=== PATIENT | female | born 1950 | race Caucasian/White ===

== ENCOUNTER 2017-09-02 14:21 | Inpatient (IN) | payer MEDICARE, MEDICAID ==
[~2017-09-02] VITALS: Ht 154.9 cm; Wt 81.3 kg
[~2017-09-02 14:21] MED LIST: ACID REFLUX PO; ANTIVERT GENERI25 MG PO; ASPIRIN 81MG TA81 MG PO; B/P PILL PO; CARAFATE 1GM TAB1 GM PO; CELEXA20 MG PO; CELLCEPT500 MG PO; CHOLESTEROL PO; CITALOPRAM20 MG PO; CLONAZEPAM0.5 M1 PO; CRANBERRY400 MG PO; DIOVAN80 MG PO; DULOXETINE60 MG PO; FIBERCON625 MG OR; FLONASE 50 MCG16 GM; IMODIUM 2MG. CAP2 MG PO; LEVOTHYROXINE0.05 M2 PO; LEVOTHYROXINE0.1 M1 PO; LOSARTAN POTASS50 MG PO; MACROBID 100MG100 M1 PO; PREDNISONE20 MG PO; PROPRANOLOL HCL20 MG PO; PROTONIX 40MG T40 MG PO; REGLAN 5MG TABLE5 MG PO; SINGULAIR 10 MG10 MG PO; SYNTHROID 0.0.075 MG PO; THYROID PILL PO; TYLENOL ES500 M1 PO; ULTRAM50 MG PO; VALSARTAN80 MG PO; VITAMIN B121000 MC2 PO; VITAMIN B12500 MCG PO; VITAMIN D31000 IU PO; VITAMIN D50000 I1 PO; XANAX 1MG TABLET1 MG PO; ZOFRAN ODT4 MG PO; [UNRECOGNIZED DRUG - REMARK] PO
--- OUTSIDE RECORDS SUMMARY | 2017-09-02 14:41 | External Medical Summary Rpt | CCD ---
Author Author , JACQUELYN Organization JACQUELYN Address Unknown Phone [email or web address] Care Team Providers Care Studio Hand Name Role Phone [employer] Unavailable Unavailable INC, [employer] Unavailable Unavailable INC, [employer] ALLRAN JR SAMIRA, ALLRAN Unavailable Unavailable JR SAMIRA ALLRAN JR SAMIRA, ALLRAN Unavailable Unavailable JR SAMIRA JAQUEZ HOL, JAQUEZ Unavailable Unavailable HOL BERNERT EJ, BERNERT Unavailable Unavailable EJ BESSON TIMOTHY, BESSON Unavailable Unavailable TIMOTHY MCKEON, MCKEON Unavailable Unavailable MCKEON ALL, MCKEON ALL Unavailable Unavailable [facility] Unavailable Unavailable [facility], [facility] TAI KRIS, TAI Unavailable Unavailable KRIS MARYStephanie MAJOR IGN, Unavailable Unavailable MARY PEDRITO IGN KYLEE SAMIRA, Unavailable Unavailable KYLEE RIOS MARGARITA, Unavailable Unavailable RIOS MARGARITA CELSO MCELROY, [place] Unavailable Unavailable LILIBETH [facility], Unavailable Unavailable [facility] Unavailable Unavailable LA, [facility] Unavailable [facility]available LA, [facility] CORNEJO CRISTIAN, CORNEJO CRISTIAN Unavailable Unavailable [facility] Unavailable Unavailable THE [facility], [facility] ARIANE JR, ARIANE Unavailable Unavailable JR COOK LILIBETH, COOK LILIBETH Unavailable Unavailable KENNY ANTWAN, Unavailable Unavailable KENNY ANTWAN [facility] Unavailable [facility], [facility] Unavailable [facility], [facility] ZIMMER FRDEY, ZIMMER FREDY Unavailable Unavailable ENDEAN XOCHITL, ENDEAN Unavailable Unavailable XOCHITL EYE MAX, EYE MAX Unavailable Unavailable FALLIS YONY, FALLIS Unavailable Unavailable YONY [facility] Unavailable Unavailable SERVBLUEGRAS, FEDERATED TRANS SERVBLUEGRAS [facility] Unavailable Unavailable TRANSPORTATION SER, [facility] FEEBACK REE, FEEBACK Unavailable Unavailable REE SEGAL ESTEFANIA, Unavailable Unavailable SEGAL ESTEFANIA YOVANY NICOLA, Unavailable Unavailable YOVANY NICOLA OLIVEIRA NAN, OLIVEIRA Unavailable Unavailable NAN TANESHA RHO, TANESHA Unavailable Unavailable RHO JUDAH SANTA, JUDAH SANTA Unavailable Unavailable SONY PRICE, Unavailable Unavailable SONY PRICE [facility] Unavailable Unavailable CARE, [facility] Unavailable Unavailable CARE, [facility]ARE [facility] Unavailable Unavailable INC, [facility] Unavailable [facility]available HOSPITAL P, [facility] HOSPITAL P WALKER RADHA, WALKER RADHA Unavailable Unavailable [facility], Unavailable Unavailable [facility] DAVEY GWE, DAVEY Unavailable Unavailable GWE HOUSMAN KAMILA, HOUSMAN Unavailable Unavailable KAMILA [facility] Unavailable Unavailable CORPORATION, [facility] Unavailable Unavailable CORPORATION, [facility] Unavailable Unavailable CORPORATION, [facility] Unavailable GROUP PS, [facility] Unavailable Unavailable [facility], [facility] KERN CAR, KERN CAR Unavailable Unavailable DELICIA PEDRO, DELICIA PEDRO Unavailable Unavailable DELICIA SANTA, DELICIA SANTA Unavailable Unavailable [facility] N[facility] Unavailable Unavailable PRACTITIONER GR, [facility] NURSE PRACTITIONER GR [facility] Un[facility] Unavailable Unavailable [facility], [facility] FED, [facility] FED Unavailable Unavailable [facility], [facility] Unavailable Unavailable ALEK JR DWI, ALEK Unavailable Unavailable JR DWI [facility] Unavailable [facility] Unavailable Un[facility] HERBERT, HERBERT Unavailable Unavailable HERBERT KRI, HERBERT KRI Unavailable Unavailable JAVIER PEDRO, JAVIER Unavailable Unavailable PEDRO JAVIER PEDRO, JAVIER Unavailable Unavailable PEDRO MAJORS G, MAJORS G Unavailable Unavailable [facility] Unavailable Unavailable SERVICES, [facility] Unavailable Unavailable ASSOCIAT, [facility] MCKEMIE KAMILA, Unavailable Unavailable MCKEMIE JR KAMILA BRILLIANT CAROL, Unavailable Unavailable [facility]LLI[facility], [facility] AVILES KAMILA, AVILES KAMILA Unavailable Unavailable RONY CAM, RONY Unavailable Unavailable [facility], Unavailable Unavailable [facility] Unavailable Unavailable AMBULANCE SE, [facility] Unavailable Unavailable AMBULANCE SE, [facility] CRISTIAN CORNEJO MD Unavailable Unavailable CONSULTING SERV, CRISTIAN CORNEJO MD CONSULTING SERV CRISTIAN CORNEJO MD Unavailable Unavailable CONSULTING SRV, CRISTIAN CORNEJO MD CONSULTING SRV [facility], Unavailable Unavailable PLLC, [facility] HODGE MAD, HODGE MAD Unavailable Unavailable SOPHIE TOD, SOPHIE TOD Unavailable Unavailable SCALF IRIS, SCALF IRIS Unavailable Unavailable RIVERO BRANT, RIVERO BRANT Unavailable Unavailable SOKAN BAB, SOKAN BAB Unavailable Unavailable [facility], Unavailable Unavailable [facility] Unavailable Unavailable EQUIPME, [facility] Unavailable Unavailable EQU[facility]ME, [facility] SOTINGEANU CAROL, Unavailable Unavailable SOTINGEANU CAROL [facility] Unavailable Unavailable EMERGENCY PHYS, [facility], Unavailable Unavailable [facility] Unavailable Unavailable CLINIC, [facility] CL[facility] Unavailable Unavailable HOSPITALS, [facility] Unavailable Unavailable SUPPLY, [facility] Unavailable Unavailable SUPPLY, [facility] SUPPL[facility] Unavailable Unavailable MEDICINE , [facility] MEDIC[facility], Unavailable Unavailable [facility] # Unavailable Unavailable [id number], [facility] # [id number] GUILLEN, GUILLEN Unavailable Unavailable GUILLEN PERRY, GUILLEN PERRY Unavailable Unavailable [facility] Unavailable Unavailable 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 WEBMASTER, [facility] DEPT CORPORATE WEBMASTER [facility] Unavailable Unavailable AGENCY, [facility] MARIO SANTA, MARIO Unavailable Unavailable SANTA Purpose Continuity of Care Document - 08-29-2010 through 2016 Problems Code Diagnosis DOS Provider Status N189 CHRONIC 08-25-2017 [facility] UNSPECIFIED K580 IRRITABLE 07-25-2017 [facility] BOWEL HEALTH SYNDROME AGENCY WITH DIARRHEA M1990 UNSPECIFIED 07-25-2017 [facility] HEALTH OSTEOARTHRI AGENCY TIS UNSPECIFIED SITE N8110 CYSTOCELE 07-25-2017 [facility] UNSPECIFIED HEALTH AGENCY R159 FULL 07-25-2017 [facility] INCONTINENC HEALTH E OF FECES AGENCY R3981 FUNCTIONAL 07-25-2017 [facility] URINARY HEALTH INCONTINENC AGENCY E I129 HYPERTENSIV 07-16-2017 [facility] CKD SERV W/STAGE 1-4 FOUNDATION CKD OR UNS CKD M329 SYSTEMIC 07-16-2017 [facility] LUPUS SERV ERYTHEMATOS FOUNDATION US UNSPECIFIED M810 AGE-RELATED 07-16-2017 [facility] OSTEOPOROSI [facility]OUNDATION S W/O CURRNT PATH FX N039 CHRONIC 07-16-2017 [facility] NEPHRITIC SERV SYND W/UNS FOUNDATION MORPHOLOGIC CHANGES N183 CHRONIC 07-16-2017 [facility] KIDNEY SERV DISEASE FOUNDATION STAGE 3 MODERATE N250 RENAL 07-16-2017 [facility] OSTEODYSTRO SERV PHY [facility]ATION R809 PROTEINURIA 07-16-2017 [facility] UNSPECIFIED FOUNDATION R8290 UNSPECIFIED 07-16-2017 [facility] ABNORMAL [facility] FINDINGS IN INC URINE M069 RHEUMATOID 06-02-2017 [facility] ARTHRITIS [place] UNSPECIFIED M3210 SYSTEMIC 06-02-2017 [facility] LUPUS CORPORATION ERYTHEMATOS US ORGAN/SYS INVLV UNS M4000 POSTURAL 06-02-2017 [facility] KY[facility] CORPORATION SITE UNSPECIFIED M549 DORSALGIA 05-29-2017 [facility] R079 CHEST PAIN 05-29-2017 [facility] IMAGING ASS R091 PLEURISY 05-29-2017 [facility] INC R69 ILLNESS 05-15-2017 [facility] UNSPECIFIED TRANSPORTAT ION SER [id number] UNSPECIFIED 04-30-2017 [facility] ASTIGMATISM FOUNDATION BILATERAL H524 PRESBYOPIA 04-30-2017 [facility] SERV FOUNDATION Q76439 OTHER LONG 04-30-2017 [facility] TERM SERV CURRENT FOUNDATION DRUG THERAPY Z961 PRESENCE OF 04-30-2017 [facility] SERV INTRAOCULAR FOUNDATION LENS G8929 OTHER 04-29-2017 [facility] CHRONIC SERV PAIN FOUNDATION L853 XEROSIS 04-29-2017 [facility] CUTIS SERV [facility] M545 LOW BACK 04-29-2017 [facility] PA[facility] R52 PAIN 04-29-2017 [facility] UNSPECIFIED SERV FOUNDATION R531 WEAKNESS 04-29-2017 [facility] E039 HYPOTHYROID 02-19-2017 [facility] UNSPECIFIED LA M129 ARTHROPATHY 02-19-2017 [facility] UNSPECIFIED LA M3214 GLOMERULAR 02-19-2017 [facility] DISEASE IN PHYSICIANS SYS LUPUS LA ERYTHEMATOS US N390 URINARY 10-28-2016 [facility] TRACT SERV INFECTION FOUNDATION SITE NOT SPECIFIED [id number] NONDSPL FX 10-16-2016 [facility] METATARSAL IMAGING ASS RT FT SUBSQT FX RTN [id number] UNS 10-16-2016 [facility] FRACTURE RT PHYSICIANS FOOT GROUP SUBSQT ENC FX ROUTINE HEAL [id number] DISPLACED 09-24-2016 [facility] FX 3RD TECHNOLOGIE METATARSAL S INC RT FT INIT CLOS FX [id number] NONDSPL FX 09-24-2016 [facility] 3RD [facility] METATARSAL INC RT FT INIT ENC CLOS FX [id number] DISPLACED 09-24-2016 [facility] FX 4TH TECHNOLOGIE METATARSAL S INC RT FT INIT CLOS FX [id number] NONDSPL FX 09-24-2016 [facility] 4TH [facility] METATARSAL INC RT FT INIT ENC CLOS FX [id number] NONDSPL FX 09-04-2016 [facility] METATARSAL IMAGING ASS RT FT SUBSQT FX RTN R83750 PAIN IN 08-26-2016 [place] RIGHT FOOT MEDICAL IMAGING ASS Z1231 ENCOUNTER 08-20-2016 [place] SCREENING MEDICAL MAMMO MALIG IMAGING ASS NEOPLASM BREAST K449 DIAPHRAGMAT 07-17-2016 [facility] HERNIA RADIOLOGY W/O OBSTRUCTION OR GANGRENE R197 DIARRHEA 07-17-2016 [facility] UNSPECIFIED N EMERGENCY PHYS M359 SYSTEMIC 04-30-2016 [facility] INVOLVEMENT SERV CONNECTIVE FOUNDATION TISSUE UNS Z5181 ENCOUNTER 04-30-2016 [facility] FOR SERV THERAPEUTIC FOUNDATION DRUG LEVEL MONITORING B351 TINEA 04-16-2016 [facility] YONY UNGUIUM F56502 PAIN IN 04-16-2016 [facility] YONY LEFT FOOT H109 UNSPECIFIED 04-03-2016 [facility] [place] CONJUNCTIVI INTERNAL TIS MEDI L930 DISCOID 02-21-2016 [facility] LUPUS PHYSICIANS ERYTHEMATOS LA US J069 ACUTE UPPER 01-24-2016 [facility] RESPIRATORY INTERNAL INFECTION MEDI UNSPECIFIED A499 BACTERIAL 01-18-2016 [facility] INFECTION SERV UNSPECIFIED FOUNDATION K219 GASTRO-ESOP 12-20-2015 [facility] H REFLUX ANESTH OF DISEASE THE BLUE WITHOUT ESOPHAGITIS M2570 OSTEOPHYTE 12-07-2015 [facility] YONY UNSPECIFIED JOINT R799 ABNORMAL 11-27-2015 [facility] FINDING OF [facility] HOS[facility] BLOOD INC CHEMISTRY UNSPECIFIED R0609 OTHER FORMS 11-21-2015 [facility] OF DYSPNEA [place]OM[place] INTERNAL MED K210 GASTRO-ESOP 10-31-2015 [facility] HAGEAL SERV REFLUX FOUNDATION DISEASE W/ ESOPHAGITIS R1310 DYSPHAGIA 10-11-2015 COMM[facility] UNSPECIFIED ANESTH OF THE BLUE E860 DEHYDRATION 10-02-2015 [facility] R112 NAUSEA WITH 10-02-2015 [facility] VOMITING PHYSICIANS, UNSPECIFIED PLLC K589 IRRITABLE 09-18-2015 [facility] BOWEL PHYSICIANS SYNDROME GROUP WITHOUT DIARRHEA M8580 OT SPEC 08-30-2015 [facility] D/O BONE PHYSICIANS DENSITY LA STRUCTURE UNS SITE Z23 ENCOUNTER 08-29-2015 [facility] [place] IMMUNIZATIO INTERNAL N MED R109 UNSPECIFIED 08-24-2015 [place] ABDOMINAL MEDICAL PAIN IMAGING ASS R9431 ABNORMAL 08-16-2015 [facility] P N959 UNSPECIFIED 08-15-2015 [facility] INC PERIMENOPAU SYDNI DISORDER S25762 ENCOUNTER 08-15-2015 [place] FOR MEDICAL SCREENING IMAGING ASS FOR OSTEOPOROSI S Z780 ASYMPTOMATI 08-15-2015 [place] C MEDICAL MENOPAUSAL IMAGING ASS STATE Z803 FAMILY 08-15-2015 [place] HISTORY OF MEDICAL MALIGNANT IMAGING ASS NEOPLASM OF BREAST 3829 UNSPECIFIED 08-07-2015 [facility] OTITIS VAL[facility] MEDIA INTERNAL MEDI 13380 ESOPHAGEAL 08-07-2015 [facility] REFLUX VALLEY INTERNAL MEDI 5853 CHRONIC 07-28-2015 [facility] KIDNEY [facility] DISEASE INC STAGE III (MODERATE) 5990 URINARY 07-28-2015 [facility] INFECTION INC SITE NOT SPECIFIED 36574 07-28-2015 [facility] TRANSPORTAT ION SER 5641 IRRITABLE 07-25-2015 [facility] SYNDROME AGENCY 71673 UNS PROLAPS 07-25-2015 [facility]AG [facility] W/O MENTION AGENCY UTERN PROLAPS 96410 UNSPECIFIED 07-25-2015 [facility] HEALTH ARTHROPATHY AGENCY SITE UNSPECIFIED 7242 LUMBAGO 07-25-2015 [facility] INTERNAL MEDI 57967 FULL 07-25-2015 [facility] INCONTINENC HEALTH E OF FECES AGENCY 80771 UNSPECIFIED 07-25-2015 [facility] URINARY HEALTH INCONTINENC AGENCY E V7610 UNSPECIFIED 07-25-2015 [facility] [place] SCREENING INTERNAL MEDI V8281 SPECIAL 07-25-2015 [facility] SCREENING VALLEY FOR INTERNAL OSTEOPOROSI MEDI S 7100 SYSTEMIC 07-11-2015 [facility] LUPUS HEALTH [place] [address] OSTEOARTHRO 07-11-2015 [facility] S UNSPEC HEALTH DEPT WHETHER CORPORATE WEBMASTER GEN/LOC UNSPEC SITE 2449 UNSPECIFIED 05-31-2015 [facility] [place] 48336 OTHER 04-25-2015 [facility] CHRONIC SERV PAIN FOUNDATION 04691 UNSPECIFIED 04-19-2015 [facility] P IS 7802 SYNCOPE AND 04-19-2015 [place] [address] NAUSEA 04-19-2015 [facility] [place] [address] DIAB W/O 03-30-2015 [facility] TYPE STATES II/UNS NOT MEDICAL STATED SUPPLY UNCNTRL 7140 RHEUMATOID 03-01-2015 [place] [address] UNSPECIFIED 02-22-2015 [facility] ARTHROPATHY INTERNAL MULTIPLE MED SITES 16332 KYPHOSIS 02-06-2015 [facility] POSTURAL 84559 HTN CKD UNS 01-09-2015 [facility] W/CKD SERV STAGE I FOUNDATION THRU STAGE IV/UNS 5829 CHRONIC GLN 01-09-2015 [facility] W/UNSPEC SERV PATHOLOGICA FOUNDATION L LESION KIDNEY 4659 ACUTE URIS 11-29-2014 [facility] OF SERV UNSPECIFIED FOUNDATION SITE 1101 DERMATOPHYT 10-12-2014 [facility] OSIS OF NAIL 7038 OTHER 10-12-2014 [facility] SPECIFIED DISEASE OF NAIL 7295 PAIN IN 10-12-2014 [facility] SOFT TISSUES OF LIMB 79332 OBSTRUCTIVE 09-16-2014 [facility] APNEA MEDICAL EQUIPME 10272 OTHER 09-16-2014 [facility] DYSPNEA AND HOME MEDICAL RESPIRATORY EQUIPME ABNORMALITI ES 4011 ESSENTIAL 08-15-2014 [facility] HYPERTENSIO SERV N, BENIGN FOUNDATION 7910 PROTEINURIA 08-15-2014 [facility] 7919 OTHER 08-15-2014 [facility] NONSPECIFIC [facility] FINDING INC EXAMINATION OF URINE 81610 DYSPHAGIA 08-11-2014 [facility] UNSPECIFIED [facility] HOSP INC 85185 AFTER-CATAR 07-28-2014 [facility] VISION 57495 NEPHRITIS&N 05-31-2014 [facility] EPHROPATHY- SERV OTH SPEC FOUNDATIO PATH LES DZ CE 7813 LACK OF 03-25-2014 [facility] COORDINATIO HOME N MEDICAL EQUIPME 40877 ANEMIA OF 01-20-2014 [facility] OTHER SERV CHRONIC FOUNDATIO DISEASE 2724 OTHER AND 12-07-2013 [facility] UNSPECIFIED VALLEY INTERNAL HYPERLIPIDE MED BRIDGETTE 3814 NONSUPPRATV 12-07-2013 [facility] OTITIS [place] MEDIA NOT INTERNAL SPEC MED ACUT/CHRON 4019 UNSPECIFIED 12-07-2013 [facility] ESSENTIAL [facility] HYPERTENSIO INTERNAL N MED 4720 CHRONIC 12-07-2013 [facility] RHINITIS VALLEY INTERNAL MED 7851 PALPITATION 10-20-2013 [facility], [place] [address] HYPERPARATH 10-13-2013 [facility], YROIDISM POCKET CLOSER UNSPECIFIED [facility] [facility] 2689 UNSPECIFIED 10-13-2013 [facility], VITAMIN D [place]OCKET [place] [address] ANEMIA IN 10-13-2013 [facility], CHRONIC POCKET CLOSER KIDNEY [facility] CO DISEASE HOS 3384 CHRONIC 09-27-2013 [facility] PAIN SERV SYNDROME FOUNDATIO 7226 DEGENERATIO 09-27-2013 [place] [facility] N SERV INTERVERTEB FOUNDATIO RAL DISC SITE UNSPEC 14813 OTHER 06-30-2013 [facility], ABNORMAL POCKET CLOSER FINDING [facility]OS L EXAM BREAST 24781 LUMP OR 06-25-2013 [place] IN RADIOLOGY BREAST ASSOCIAT 1103 DERMATOPHYT 06-07-2013 [facility] OSIS OF SOMERSET GROIN AND INTERNAL PERIANAL MED AREA 4555 EXTERNAL 05-05-2013 [facility] JR HEMORRHOIDS SAMIRA WITH OTHER COMPLICATIO N 2722 MIXED 05-04-2013 CRISTIAN CORNEJO HYPERLIPIDE BRIDGETTE CONSULTING SERV 71085 CORONARY 05-04-2013 CRISTIAN HAYNES MD OSIS [place] TRIBES CONSULTING CORONARY SERV ARTERY V7281 PRE-OPERATI 05-04-2013 CRISTIAN BARAJAS MD CARDIOVASCU CONSULTING LAR SERV EXAMINATION 81309 DYSFNCT 04-23-2013 [facility] W/SLEEP HOSPITAL STGES/AROUS AL FRM SLEEP 28567 HYPOXEMIA 04-23-2013 [facility] V8533 BODY MASS 04-23-2013 [facility] [id number] HOSPITAL ADULT 5859 CHRONIC 04-19-2013 [facility] INC, KIDNEY POCKET CLOSER DISEASE [facility] UNSPECIFIED HOS 13789 UNSPECIFIED 04-16-2013 [facility] OSTEOPOROSI S 48594 CHEST PAIN 04-16-2013 [facility] UNSPECIFIED CARDIOLOGY CLINIC 4160 PRIMARY 04-14-2013 [place] PULMONARY [facility] HYPERTENSIO [facility] N 20908 PRECORDIAL 04-14-2013 [facility] 51622 OTHER 04-14-2013 [facility] [place] NONSPECIFIC RADIOLOGY ABNORMAL FINDING OF LUNG FIELD 27498 SHORTNESS 03-24-2013 [facility] 7823 EDEMA 03-09-2013 CRISTIAN CORNEJO [place] 05956 OTHER CHEST 03-01-2013 [facility] PAIN [place]OMERSET INTERNAL MED 79202 OBESITY, 02-27-2013 [facility] UNSPECIFIED [facility]ERGENCY SERVICES 08315 [facility]N [facility] 02-26-2013 [facility] KID DZ STAGE I-IV/UNS 4556 UNSPEC 02-26-2013 [place] [facility] ANESTHESIA WITHOUT GROUP PS MENTION COMPLICATIO N 4558 UNSPECIFIED 02-26-2013 [facility]OSPITAL WITH OTHER COMPLICATIO N V641 SURG/OTH 02-26-2013 [facility] BECAUSE CONTRAINDIC ATION 4550 INTERNAL 02-10-2013 [facility] JR HEMORRHOIDS SAMIRA WITHOUT MENTION COMP 485 BRONCHOPNEU 01-19-2013 [facility] [place] ORGANISM INTERNAL UNSPECIFIED MED 27795 OTHER 01-19-2013 [facility] [place] FATIGUE INTERNAL MED 4293 CARDIOMEGAL [facility] 03244 OTHER 01-18-2013 [facility] TERRACE DISEASES OF RADIOLOGY LUNG NOT ASSOCIAT ELSEWHERE CLASSIFIED 6100 SOLITARY 01-13-2013 [facility], CYST OF [place] [address] UNSPECIFIED 01-06-2013 [facility], ABNORMAL [place]OCKET [place] 46782 DYSPHAGIA 12-09-2012 [facility], DUE TO POCKET CLOSER CEREBROVASC [facility] CO ULAR HOS DISEASE 5533 DIAPHRAGMAT 12-09-2012 [facility], EDUARD W/O POCKET CLOSER MENTION [place] OBSTRUCTION HOS /GANGREN 23043 OTHER 12-08-2012 [facility] TERRACE SPECIFIED RADIOLOGY DISORDERS ASSOCIAT OF BREAST V1589 OTH SPEC 12-08-2012 [facility], PERS HX POCKET CLOSER PRESENTING [facility] CO HAZARDS HOS HEALTH OTH V163 FAMILY 12-08-2012 [facility], HISTORY OF POCKET CLOSER MALIGNANT [place] CO NEOPLASM OF HOS BREAST V7611 SCREENING 12-08-2012 [facility], MAMMOGRAM POCKET CLOSER FOR [place] CO HIGH-RISK HOS PATIENT V7612 OTHER 12-08-2012 [facility] T[facility]ACE SCREENING RADIOLOGY MAMMOGRAM ASSOCIAT 7213 LUMBOSACRAL 12-01-2012 [facility] SPONDYLOSIS WITHOUT MYELOPATHY 68386 DISPLCMT 12-01-2012 [facility] LUMBAR SERV INTERVERT FOUNDATIO DISC W/O MYELOPATHY 34143 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 [place] LUMBAR/LUMB [facility] OSACRAL INTERVERTEB RAL DISC 27166 OTHER&UNSPE 12-01-2012 [facility] DISORDER OF LUMBAR REGION 92024 DIVERTICULO 11-17-2012 [facility] SIS OF MEM HOS[facility] COLON INC 60547 OTHER 11-17-2012 [facility] SYMPTOMS ANESTH OF INVOLVING THE BLUE DIGESTIVE SYSTEM OTHER V160 FM HX 11-17-2012 [facility] MALIGNANT [facility] NEOPLASM INC GASTROINTES TINAL TRACT V7651 SPECIAL 11-17-2012 [facility] SCREENING MEM HOS[facility] FOR INC MALIGNANT NEOPLASMS COLON 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 [facility] THESIS 82260 NEPHROTIC 11-05-2012 [place] [facility] SYND W/OTH SERV PATHAL LES FOUNDATIO DZ CLASS ELSW 61086 MUSCLE 11-05-2012 [place] [facility] WEAKNESS SERV (GENERALIZE FOUNDATIO D) 4553 EXTERNAL 10-19-2012 [facility] HEMORRHOIDS SAMIRA WITHOUT MENTION COMP 7856 ENLARGEMENT 10-05-2012[place] [facility] RADIOLOGY NODES ASSOCIAT 7866 SWELLING, 10-05-2012 [facility], MASS, OR POCKET CLOSER LUMP IN [place] CHEST HOS V4576 ACQUIRED 10-05-2012 [facility], ABSENCE OF POCKET CLOSER ORGAN, LUNG [facility] HOS V4589 OTHER 09-25-2012 [facility], POSTSURGICA POCKET CLOSER L STATUS [facility] OTHER HOS V571 OTHER 09-24-2012 [facility], PHYSICAL POCKET CLOSER THERAPY [facility] HOS 4421 ANEURYSM OF 09-21-2012 [facility] ARTERY 59406 OSTEOARTHRO 09-03-2012 [facility] S UNSPEC SERV WHETHER FOUNDATIO GEN/LOC SHLDR REGION 20295 OSTEOARTHRO 09-03-2012 [facility] SIS UNSPEC SERV WHETHER FOUNDATIO GEN/LOC LOWER LEG 63589 EFFUSION OF 09-03-2012 [facility] LOWER LEG SERV JOINT FOUNDATIO 64586 PAIN IN 09-03-2012 [place] [facility] JO[facility], SERV SHOULDER FOUNDATIO REGION 22773 PAIN IN 09-03-2012 [facility] SERV LOWER LEG FOUNDATIO 7249 OTHER 09-03-2012 [facility] U[facility]IED SERV BACK [facility] DISORDER 15475 EXOSTOSIS 09-03-2012 [facility] UNSPECIFIED F[facility]ATIO SITE 7384 ACQUIRED 09-03-2012 [facility] SPONDYLOLIS SERV THESIS [facility]OUNDATIO 51742 DEHYDRATION 08-04-2012 [facility] P[facility]ET [facility] 5589 OTH&UNSPEC 08-04-2012 [facility] NONINFECTIO POCKET CLOSER US [facility] ITIS&COLITI S 97610 VOMITING 08-04-2012 [facility] ALONE [facility] 4580 ORTHOSTATIC 06-19-2012 [facility] HYPOTENSION 5849 ACUTE 06-19-2012 [facility] FAILURE UNSPECIFIED 2720 PURE 06-05-2012 [facility], HYPERCHOLES POCKET CLOSER TEROLEMIA [facility] 586 UNSPECIFIED 04-14-2012 CRISTIAN CORNEJO RENAL [place] 64882 OTH & UNS E 04-08-2012 [facility], COLI POCKET CLOSER INFECTION [facility] CLASS ELSW HOS UNS SITE 2762 ACIDOSIS 04-08-2012 [facility], POCKET CLOSER [facility] HOS 2767 HYPERPOTASS 04-08-2012 [facility], EMIA POCKET CLOSER [facility] HOS 4589 UNSPECIFIED 04-07-2012 [facility] HYPOTENSION 7862 COUGH 04-07-2012 [facility] 30554 ANEURYSM OF 03-23-2012 [facility] OTHER SERV VISCERAL FOUND[facility] ARTERY 73838 UNSPECIFIED 02-13-2012 [facility] MEDICINE P 6256 FEMALE 02-12-2012 [place] [address] URGE 02-12-2012 [facility] [place] [address] URINARY 02-12-2012 [place] [address] URGENCY OF 02-12-2012 [facility] N[facility]SE URINATION PRACTITIONE R GR 7336 TIETZES 07-10-2011 [facility], DISEASE POCKET CLOSER [facility] HOS 94581 UNSPECIFIED 01-03-2011 [facility] PYELONEPHRI TIS 6826 CELLULITIS 01-03-2011 [facility] [facility] P EXCEPT FOOT 6954 LUPUS 01-03-2011 [facility] US FOUNDATIO 27944 SWELLING OF 01-03-2011 [facility] 7931 NONSPEC 01-03-2011 [facility] OTH EXAM FOUNDATIO BODY STRUCT LUNG FIELD 19559 CRAMP OF 11-06-2010 [facility] 58435 DIARRHEA 11-06-2010 [facility] HOSPITAL V5865 LONG-TERM 11-06-2010 [facility] USE OF HOSPITAL STEROIDS V5869 LONG-TERM 11-06-2010 [facility] (CURRENT) HOSPITAL USE OF OTHER MEDICATIONS V5883 ENCOUNTER 11-06-2010 [facility] FOR HOSPITAL THERAPEUTIC DRUG MONITORING 68962 NAUSEA WITH 10-02-2010 [facility] V7260 LABORATORY 10-02-2010 [facility] UNSPECIFIED 4619 ACUTE 09-27-2010 [facility] SINUSITIS, FAMILY UNSPECIFIED MEDICINE P 55191 NUCLEAR 09-05-2010 [facility] 3669 UNSPECIFIED 09-04-2010 [facility] 7850 UNSPECIFIED 08-29-2010 [facility] TACHYCARDIA Medications Na ND Rx Da Fi Fi Am Da Di Ph RX Ph St me C No te ll ll ou ys ag ar # ys at rm s nt no ma ic us Or Da si cy ia de te s n re d BE 67 01 01 0 30 10 SO 49 FL Ac NZ 87 -0 -0 0. PE 28 OR ti ON 70 5- 5- 00 RS 24 EN ve AT 10 20 20 0 CE AT 60 15 15 FA E 1 IL SA 20 LY RA [address] L UG CA PS UL E LE 00 07 08 6 30 30 WA 71 ME Ac VO 37 -1 -2 0. L- 34 LV ti TH 81 1- 0- 00 MA 13 IL ve YR 80 20 20 0 RT 6 LE OX 00 12 12 IN 1 PH DA E AR NI 25 MA EL CY MC # G TA 10 BL 04 ET 93 LE 00 07 07 6 30 30 WA 71 ME Ac VO 37 -1 -1 0. L- 34 LV ti TH 81 1- 1- 00 MA 13 IL ve YR 80 20 20 0 RT 6 LE OX 00 12 12 IN 1 PH DA E AR NI 25 MA EL CY MC # G TA 10 BL 04 ET 93 ON 68 06 06 0 12 4 WA 71 SI Ac DA 46 -0 -0 0. L- 29 ZE ti NS 20 7- 7- 00 MA 83 MO ve ET 10 20 20 0 RT 4 RE RO 53 12 12 N 0 PH ED HC AR WA L MA RD 4 CY A MG # TA 10 BL 04 ET 93 LE 00 02 06 3 30 30 WA 71 ME Ac VO 37 -1 -0 0. L- 15 LV ti TH 81 6- 4- 00 MA 04 IL ve YR 80 20 20 0 RT 4 LE OX 00 12 12 IN 1 PH DA E AR NI 25 MA EL CY # G TA 10 BL 04 ET 93 Results Labs Lab Lab Date Result Refere Interp Status Commen Order Detail nces retati t Range on Protein [Presence] in Urine (07-16-2017 14:15) Protein 381.2 0.0mg High complet 017 /dL - ed [Presen 14:15 11.9m ce] in g/dL Urine Urinalysis dipstick W Reflex Microscopic panel in Urine (07-16-2017 14:15) Bacteri 4+ O complet a 017 ed [Presen 14:15 ce] in Urine sedimen t by Light microsc opy Erythro OCC 0 complet cytes 017 ed [Presen 14:15 ce] in Urine sedimen t by Light microsc opy Epithel 5-10 NONE complet ial 017 ed cells.r 14:15 enal [Presen ce] in Urine sedimen t by Light microsc opy Epithel TNTC 0#/hp complet ial 017 f - ed cells.s 14:15 5#/hp quamous f [Presen ce] in Urine sedimen t by Microsc opy high power field Leukocy 50-100 O complet michael 017 wbc/hpf ed [#/volu 14:15 me] in Urine Urinalysis dipstick W Reflex Microscopic panel in Urine (07-16-2017 14:15) Appeara SL CLEAR complet nce of 017 CLOUDY ed Urine 14:15 Bilirub NEGATIV NEG complet in 017 E ed [Presen 14:15 ce] in Urine by Test strip Erythro 1+ NEG Abnorma complet cytes 017 l ed [Presen 14:15 ce] in Urine Color YELLOW YELLOW complet of 017 ed Urine 14:15 Ketones NEGATIV NEG complet 017 E ed [Presen 14:15 ce] in Urine by Automat ed test strip Mucus 1+ NEG Abnorma complet [Presen 017 l ed ce] in 14:15 Urine sedimen t by Light microsc opy Nitrite POSITIV NEG Abnorma complet 017 E l ed [Presen 14:15 ce] in Urine by Test strip Urobili 0.2 NEG complet nogen 017 ed [Presen 14:15 ce] in Urine by Test strip C3c SerPl-mCnc (01-28-2017 14:00) C3c 165 84-166 complet SerPl-m 017 mg/dL ed Cnc 14:00 C4 SerPl-mCnc (01-28-2017 14:00) C4 25 13-36 complet SerPl-m 017 mg/dL ed Cnc 14:00 Creat Ur-mCnc (01-28-2017 14:00) Creat 176 complet Ur-mCnc 017 mg/dL ed 14:00 CRP SerPl-mCnc (01-28-2017 14:00) CRP 01-28-2 0.7 0-0.9 complet SerPl-m 017 mg/dL ed Cnc 14:00 ESR Bld Qn (01-28-2017 14:00) ESR Bld 48 0-20 complet Qn 017 mm/hr ed 14:00 Procedures Procedure DOS Code Location Performer Comment DISPBL T4535 [facility] HOME HOME ELD/GUARD HEALTH HEALTH /PAD/UNDG AGENCY AGENCY RMNT INCONT EA CREATININ 46105 [facility] INC RENAL 67159 [facility] FUNCTION 7 [facility] PANEL INC INC URNLS DIP 78473 [facility] REY 7 [facility] STICK/TAB INC INC LET REAGENT AUTO MICROSCOP Y PROTEIN 55786 [facility] RE[facility] XCPT 7 [facility] REFRACTOM INC INC ETRY SERUM PLASMA/WH L BLD BLOOD 27989 [facility] RE[facility] COUNT 7 [facility] COMPLETE INC INC AUTO&AUTO DIFRNTL WBC CULTURE 91421 [facility] RE[facility] BACTERIAL 7 [facility] INC INC QUANTTATI VE COLONY COUNT URINE COLLECTIO 41989 KR[facility]SY REY N VENOUS 7 [facility] BLOOD INC INC VENIPUNCT URE PWR E2381 HOVER[facility] HOVEROUND PNEUMATIC 7 DRIVE CORPORATI CORPORATI WHEEL ON ON TIRE REPL ONLY EACH PWR E2382 HOVEROUND HOVEROUND TUBE 7 PNEUMATIC CORPORATI CORPORATI DRIVE ON ON WHEEL TIRE REPL EACH RADIOLOGI 91794 [place] MCKEON C EXAM 7 MEDICAL CHEST 2 IMAGING VIEWS ASS FRONTAL&L ATERAL NONEMERGE A0130 FEDERATED FEDERATED NCY 7 TRANS TRANSPORT TRANSPORT SERVBLUEG ATION: ATION SER NATA AKBAR DISPBL T4535 [facility] 7 HOME HOME ELD/GUARD HEALTH HEALTH /PAD/UNDG AGENCY AGENCY RMNT INCONT EA NONEMERGE A0130 FEDERATED FEDERATED NCY 7 TRANS TRANSPORT TRANSPORT SERVBLUEG ATION: ATION SER NATA Carrasquillo VAN NONEMERGE A0130 FEDERATED FEDERATED NCY 7 TRANS TRANSPORT TRANSPORT SERVBLUEG ATION: ATION SER NATA Carrasquillo VAN VISUAL 49031 MINH THAKKAR FIELD XM 7 MEDICAL JR UNI/BI SERV W/INTERP FOUNDATIO EXTENDED N EXAM COMPUTERI 41353 [place] ARIANE ZED 7 MEDICAL JR OPHTHALMI SERV C IMAGING FOUNDATIO RETINA N NONEMERGE A0130 FEDERATED FEDERATED NCY 7 TRANS TRANSPORT TRANSPORT SERVBLUEG ATION: ATION SER NATA Carrasquillo VAN DISPBL T4535 [facility] 7 HOME HOME ELD/GUARD HEALTH HEALTH /PAD/UNDG [place] [address] COMBINED COMBINED THYROID 7 PHYSICIAN PHYSICIAN STIMULATI [place] [address] COMBINED COMBINED FREE 7 PHYSICIAN [place] [address] COMBINED COMBINED TRIIODOTH 7 PHYSICIAN PHYSICIAN YRONINE S LA S LA T3 TOTAL TT3 BLOOD 24292 COMBINED COMBINED COUNT 7 PHYSICIAN PHYSICIAN COMPLETE S LA S LA AUTO&AUTO DIFRNTL WBC LIPID 70977 COMBINED COMBINED PANEL 7 PHYSICIAN PHYSICIAN S LA S LA COMPREHEN 19967 COMBINED COMBINED SIVE 7 PHYSICIAN PHYSICIAN METABOLIC S LA S LA PANEL PWR WC E2366 HOVEROUND HOVEROUND ACSS 7 BATTRY CORPORATI CORPORATI CHRGR 1 ON ON MODE W/ONLY 1 B[facility]Y PROTEIN 83851 [facility] TOTAL 7 HEALTHCAR HEALTHCAR XCPT E E REFRACTOM [facility] ETRY URINE NONEMERGE A0130 FEDERATED FEDERATED NCY 7 TRANS TRANSPORT TRANSPORT SERVBLUEG ATION: ATION SER NATA Carrasquillo VAN COLLECTIO 91052 [facility] N VENOUS 7 HEALTHCAR HEALTHCAR BLOOD E E VENIPUNCT [facility] URE C-REACTIV 95504 [facility] E PROTEIN 7 HEALTHCAR HEALTHCAR E E HOSPITALS HOSPITALS BLOOD 03-21-201 03958 [facility] COUNT 7 HEALTHCAR HEALTHCAR COMPLETE E E AUTO&AUTO [facility] HOSPITALS DIFRNTL WBC SEDIMENTA 67072 [facility] TION RATE 7 HEALTHCAR HEALTHCAR RBC E E AUTOMATED HOSPITALS [facility] FLUORESCE 31140 [facility] NT 7 HEALTHCAR HEALTHCAR NONNFCT E E AGT ANTB [facility] SCREEN EA ANTIBODY DXA BONE 58735 [place] GUILLEN DENSITY 7 MEDICAL STUDY 1/> SERV SITES FOUNDATIO AXIAL N SKEL COMPREHEN 77241 [facility] SIVE 7 HEALTHCAR HEALTHCAR METABOLIC E E PANEL [facility] URNLS DIP 95563 [facility] 7 HEALTHCAR HEALTHCAR STICK/TAB E E LET [facility] REAGENT AUTO MICROSCOP Y COMPLEMEN 99426 [facility] T ANTIGEN 7 [facility]ALTHCAR [facility]ALTHCAR EACH E E COMPONENT [facility] CREATININ 40099 [facility] E OTHER 7 HEALTHCAR HEALTHCAR SOURCE E E HOSPITALS [facility] DISPBL T4535 [facility] 7 HOME HOME ELD/GUARD HEALTH HEALTH /PAD/UNDG AGENCY AGENCY RMNT INCONT EA NONEMERGE A0130 FEDERATED FEDERATED NCY 6 TRANS TRANSPORT TRANSPORT SERVBLUEG ATION: ATION SER NATA WHEELSAMIRAI Foreign VAN RADEX 60278 [facility] FOOT 6 [facility] COMPLETE INC INC MINIMUM 3 VIEWS COLLECTIO 96032 [facility] RE[facility] N VENOUS 6 [facility] BLOOD INC INC VENIPUNCT URE CULTURE 96222 [facility] RE[facility] BACTERIAL 6 [facility] INC INC QUANTTATI VE COLONY COUNT URINE CULTURE 98403 [facility] RE[facility] BCT 6 [facility] ISOL&PRSM INC INC PTV ID ISOLATE EA URINE PROTEIN 04844 [facility] REY XCPT 6 [facility] REFRACTOM INC INC ETRY SERUM PLASMA/WH L BLD BLOOD 90715 [facility] RE[facility] COUNT 6 [facility] COMPLETE INC INC AUTO&AUTO DIFRNTL WBC URNLS DIP 12407 [facility] REY 6 [facility] STICK/TAB INC INC LET REAGENT AUTO MICROSCOP Y SUSCEPTIB 78076 [facility] REY LTY STDY 6 [facility] ANTIMICRB INC INC IAL MICRO/AGA R DILUTJ RENAL 14893 [facility] REY FUNCTION 6 [facility] PANEL INC INC CREATININ 47558 [facility] REY E OTHER 6 [facility] SOURCE INC INC WALKING L4360 [facility]OT 6 TECHNOLOG TECHNOLOG PNEUMATC IES INC IES INC &/ VACUUM PREFAB CUSTM FIT ORTHOTIC 01041 KRISSY REY MGMT&NICK 6 [facility] [place] UXTR INC INC LXTR&/TRN K EA 15 RADEX 56199 [place] MCKEON ALL FOOT 6 MEDICAL COMPLETE IMAGING MINIMUM 3 ASS VIEWS WALKER E0135 [facility] F[facility]ING 6 HOME HOME ADJUSTABL MEDICAL MEDICAL E OR EQUIPME EQUIPME FIXED HEIGHT CAST Q4038 [facility] HODGE MAD SUPPLIES 6 PHYSICIAN SHORT LEG S GROUP CAST ADULT FIBERGLAS S RADEX 97462 [place] MCKEON ALL FOOT 6 MEDICAL COMPLETE IMAGING MINIMUM 3 ASS VIEWS SCREENING G0202 [place] KENNY 6 MEDICAL ANTWAN MAMMOGRAP IMAGING HY MARIA DEL ROSARIO ASS INCL CAD WHEN PERFORMD COMPUTER- 76787 [place] KENNY AIDED 6 MEDICAL ANTWAN DETECTION IMAGING ASS SCREENING MAMMOGRAP HY NONEMERG A0120 FEDERATED FEDERATED TRNSPRT: 6 MINI-BUS TRANSPORT TRANSPORT MTN ATION SER ATFORMERLY [facility] SER AREA/OTH SYS HEPATIC [address] [facility] FUNCTION 6 Y Y PANEL [facility] RENAL 54411 [facility] FUNCTION 6 Y Y PANEL [facility] URNLS DIP [address] [facility] 6 Y Y STICK/TAB [facility] LET REAGENT AUTO MICROSCOP Y COMPLEMEN [address] [facility] T ANTIGEN 6 Y Y EACH HOSPITAL HOSPITAL COMPONENT C-REACTIV [address] [facility] E PROTEIN 6 Y Y HOSPITAL [facility] COLLECTIO [address] [facility] N VENOUS 6 Y Y BLOOD [facility] VENIPUNCT URE NONEMERGE A0130 FEDERATED FEDERATED NCY 6 TRANS TRANSPORT TRANSPORT SERVBLUEG [place]: [place] [address] [facility] BLOOD/URI 6 Y Y C ACID HOSPITAL HOSPITAL PROTEIN 38599 [facility] TOTAL 6 Y Y XCPT HOSPITAL HOSPITAL REFRACTOM ETRY URINE FLUORESCE [address] [facility] NT 6 Y Y NONNFCT HOSPITAL HOSPITAL AGT ANTB SCREEN EA ANTIBODY SEDIMENTA [address] [facility] TION RATE 6 Y Y RBC HOSPITAL HOSPITAL AUTOMATED CALCIUM [address] [facility] IONIZED 6 Y Y HOSPITAL HOSPITAL BLOOD [address] [facility] COUNT 6 Y Y COMPLETE HOSPITAL HOSPITAL AUTOMATED [address] [facility] HYDROXY 6 Y Y INCLUDES HOSPITAL HOSPITAL FRACTIONS IF PERFORMED CREATINE [address] [facility] KINASE 6 Y [place] [address] [facility] PARATHORM 6 Y Y ONE [facility] H[facility] CREATININ [address] [facility] E OTHER 6 Y Y SOURCE [facility] HOSPITAL ADLT SZD T4526 [facility] DISPBL 6 HOME HOME INCONT HEALTH HEALTH PROD AGENCY AGENCY UNDWEAR MED EA INCONTINE T4541 [facility] NCE 6 HOME HOME PRODUCT HEALTH HEALTH DISPOSABL [place] [address] [facility] TANESHA ABDOMEN & 6 RADIOLOGY RHO PELVIS W/O CONTRAST MATERIAL NONEMERGE A0130 FEDERATED FEDERATED NCY 6 TRANS TRANSPORT TRANSPORT SERVBLUEG ATION: ATION SER NATA Cararsquillo VAN DISPBL T4535 [facility]ATH[facility] 6 HOME HOME ELD/GUARD HEALTH HEALTH /PAD/UNDG AGENCY AGENCY RMNT INCONT EA CREATININ [address] [facility] E OTHER 6 Y Y [facility] HOSPITAL NONEMERGE A0130 FEDERATED FEDERATED NCY 6 TRANSPORT TRANSPORT TRANSPORT ATION: ATION SER ATION SER SANDRA AKBAR PROTEIN [address] [facility] TOTAL 6 Y Y XCPT HOSPITAL HOSPITAL REFRACTOM ETRY URINE COLLECTIO [address]82[address] [facility] N VENOUS 6 Y Y BLOOD [facility] VENIPUNCT URE C-REACTIV [address] [facility] E PROTEIN 6 Y Y HOSPITAL HOSPITAL BLOOD [address] [facility] COUNT 6 Y Y COMPLETE [facility]PITAL AUTO&AUTO DIFRNTL WBC SEDIMENTA [address] [facility] TION RATE 6 Y Y RBC [facility] AUTOMATED FLUORESCE [address] [facility] NT 6 Y Y NONNFCT [facility] AGT ANTB SCREEN EA ANTIBODY COMPREHEN [address] [facility] SIVE 6 Y Y METABOLIC [facility] PANEL COMPLEMEN [address] [facility] T ANTIGEN 6 Y Y EACH [facility] HOSPITAL COMPONENT URNLS DIP [address] [facility] 6 Y Y STICK/TAB [facility] LET REAGENT AUTO MICROSCOP Y DEBRIDEME 98818 [facility] TAI NT NAIL 6 YONY KRIS ANY METHOD 6/> NONEMERGE A0130 FEDERATED FEDERATED NCY 6 TRANSPORT TRANSPORT TRANSPORT ATION: ATION SER ATION SER SANDRA AKBAR NONEMERGE A0130 FEDERATED FEDERATED NCY 6 TRANSPORT TRANSPORT TRANSPORT ATION: ATION SER ATION SER SANDRA AKBAR URNLS DIP 14460 [facility]Y 6 [facility] STICK/TAB INC INC LET REAGENT AUTO MICROSCOP Y DISPBL T4535 [facility] 6 HOME HOME ELD/GUARD HEALTH HEALTH /PAD/UNDG [place]ENC[place] [address] COMBINED COMBINED THYROID 6 PHYSICIAN PHYSICIAN STIMULATI S LA S LA NG HORMONE TSH COMPREHEN 74440 COMBINED COMBINED SIVE 6 PHYSICIAN PHYSICIAN METABOLIC S LA S LA PANEL BLOOD 15449 COMBINED COMBINED COUNT 6 PHYSICIAN PHYSICIAN COMPLETE S LA S LA AUTO&AUTO DIFRNTL WBC NONEMERGE A0130 FEDERATED FEDERATED NCY 6 TRANSPORT TRANSPORT TRANSPORT ATION: ATION SER ATION SER SANDRA AKBAR NONEMERG A0120 FEDERATED FEDERATED TRNSPRT: 6 MINI-BUS TRANSPORT TRANSPORT MTN ATION SER ATION SER AREA/OTH SYS DEBRIDEME 33240 [facility] TAI NT NAIL 6 YONY KRIS ANY METHOD 6/> REPR/SRVC K0739 HOVEROUND HOVEROUND DME NOT 6 O2 RQR CORPORATI CORPORATI TECH ON ON CMPNT PER 15 MINS NONEMERGE A0130 FEDERATED FEDERATED NCY 6 TRANSPORT TRANSPORT TRANSPORT ATION: ATION SER ATION SER SANDRA Carrasquillo NAOMIE NONEMERGE A0130 FEDERATED FEDERATED NCY 6 TRANSPORT TRANSPORT TRANSPORT ATION: ATION SER ATION SER SANDRA Carrasquillo VAN COLLECTIO 45734 [facility] RE[facility] N VENOUS 6 [facility] BLOOD INC INC VENIPUNCT URE CULTURE 18346 [facility] REY BCT 6 [facility] ISOL&PRSM INC INC PTV ID ISOLATE EA URINE CULTURE 52844 [facility] REY BACTERIAL 6 [facility] INC INC QUANTTATI VE COLONY COUNT URINE BLOOD 68789 [facility] REY COUNT 6 [facility] COMPLETE INC INC AUTO&AUTO DIFRNTL WBC PROTEIN 95794 KR[facility]SY REY XCPT 6 [facility] REFRACTOM INC INC ETRY SERUM PLASMA/WH L BLD RENAL 49282 [facility] REY FUNCTION 6 [facility] PANEL INC INC URNLS DIP 17265 RKISSYELVI REY 6 [facility] STICK/TAB INC INC LET REAGENT AUTO MICROSCOP Y SUSCEPTIB 91192 [facility] REY LTY STDY 6 [facility] ANTIMICRB INC INC IAL MICRO/AGA R DILUTJ CREATININ 64767 KR[facility]SY REY E OTHER 6 [facility] SOURCE INC INC ANES 20538 [facility] UPP[facility] GI 6 ANESTH REE ENDOSCOPY OF THE PROXIMAL BLUE TO DUODENUM PNEUMOCOC 4040F [facility] TAI KELLEE 6 YONY KRIS VACCINE ADMIN RCVD PRIOR BMI DOC G8420 [facility] TAI W/I 6 YONY KRIS NORMAL IKER & NO F/U PLAN REQUIRED ELIG CLIN G8427 [facility] TAI ATTSTS 6 YONY KRIS DOC M REC OBTD UPD/REV PT MEDS DEBRIDEME 38028 F[facility]AP TAI NT NAIL 6 YONY KRIS ANY METHOD 6/> INFLUENZA G8484 [facility] FALLIS IMMUN 6 YONY YONY NOT ADMINISTE RED RSN NOT GIVEN CURRENT 1036F F[facility]IS FALLIS TOBACCO 6 YONY YONY NON-USER CAD CAP COPD PV DM DISPBL T4535 [facility] 6 HOME HOME ELD/GUARD HEALTH HEALTH /PAD/UNDG AGENCY AGENCY RMNT INCONT EA COLLECTIO 83411 [facility] REY N VENOUS 6 [facility] BLOOD INC INC VENIPUNCT URE BLOOD 78761 KR[facility]SY REY COUNT 6 [facility] COMPLETE INC INC AUTO&AUTO DIFRNTL WBC NONEMERG A0120 FEDERATED FEDERATED TRNSPRT: 6 MINI-BUS TRANSPORT TRANSPORT MTN ATION SER ATION SER AREA/OTH SYS BASIC 76956 [facility] REY METABOLIC 6 [facility] PANEL INC INC CALCIUM TOTAL SEDIMENTA 24300 COMBINED COMBINED TION RATE 6 PHYSICIAN PHYSICIAN RBC S LA S LA NON-AUTOM ATED COMPREHEN 95013 COMBINED COMBINED SIVE 6 PHYSICIAN PHYSICIAN METABOLIC S LA S LA PANEL BLOOD 69699 COMBINED COMBINED COUNT 6 PHYSICIAN PHYSICIAN COMPLETE S LA S LA AUTO&[place] [address] COMBINED COMBINED THYROID 6 PHYSICIAN PHYSICIAN STIMULATI S LA S LA NG HORMONE TSH PWR E2382 HOVEROUND HOVEROUND TUBE 6 PNEUMATIC CORPORATI CORPORATI DRIVE ON ON WHEEL TIRE REPL EACH PWR E2365 HOVEROUND HOVEROUND WHLCHAIR 6 ACSS U-1 CORPORATI CORPORATI SEALED ON ON LEAD ACID BATTRY EA REPR/SRVC K0739 HOVEROUND HOVEROUND DME NOT 6 O2 RQR CORPORATI CORPORATI TECH ON ON CMPNT PER 15 MINS PWR E2391 HOVEROUND HOVEROUND SOLID 6 ANNMARIE CORPORATI CORPORATI TIRE ON ON REPLACEME NT ONLY EACH PWR E2366 HOVEROUND HOVEROUND ACSS 6 BATTRY CORPORATI CORPORATI CHRGR 1 ON ON MODE W/ONLY 1 BATTRY PWR E2381 HOVEROUND HOVEROUND PNEUMATIC 6 DR[address] CORPORATI CORPORATI WHEEL ON ON TIRE REPL ONLY EACH NONEMERGE A0130 FEDERATED FEDERATED NCY 5 TRANSPORT TRANSPORT TRANSPORT ATION: ATERNESTINA HART SER SANDRA Carrasquillo NAOMIE TEOFILOLOC [address] [facility] N VENOUS 5 Y Y BLOOD [facility] VENIPUNCT URE CHROMATOG [address] [facility] SURYA 5 Y Y [facility] COLUMN 1 ANALYTE KARLENE NONEMERG A0120 FEDERATED FEDERATED TRNSPRT: 5 MINI-BUS TRANSPORT TRANSPORT MTN ATERNESTINA CARDOZO AREA/OTH SYS ANES 30197 [facility] ZIMMER FREDY UPPER GI 5 ANESTH ENDOSCOPY OF THE PROXIMAL BLUE TO DUODENUM COMPREHEN 28976 [facility] RE[facility] SIVE 5 [facility] [place] [address] [facility] RE[facility] INFUSION 5 [facility] THERAPY/P INC INC ROPHYLAXI S /DX 1ST TO 1 HR THERAPEUT 88069 [facility] RE[facility] IC 5 [facility] INJECTION INC INC IV PUSH EACH NEW DRUG INJECTION J2405 [facility] REY 5 [facility] ONDANSETR INC INC ON HCL [place] 1 [place] [address] [facility] RE[facility] INFUSION 5 [facility] THERAPY INC INC PROPHYLAX IS/DX EA HOUR THER 31504 [facility] REY PROPH/DX 5 [facility] NJX EA INC INC SEQL IV PUSH SBST/[place] [address] [facility] REY LIPASE 5 [facility] INC INC BLOOD 01616 [facility] REY COUNT 5 [facility] COMPLETE INC INC AUTO&[place] [address] [facility] REY AMYLASE 5 [facility] INC INC DISPBL T4535 [facility]ATH[facility] 5 HOME HOME ELD/GUARD HEALTH HEALTH /PAD/UNDG AGENCY AGENCY RMNT INCONT EA ADLT SZD T4526 [facility] DIS[facility] 5 HOME HOME INCONT HEALTH HEALTH PROD [place] [address] COMBINED COMBINED THYROID 5 PHYSICIAN PHYSICIAN STIMULATI S LA S LA NG HORMONE TSH BLOOD 98927 COMBINED COMBINED COUNT 5 PHYSICIAN PHYSICIAN COMPLETE S LA S LA AUTO&AUTO DIFRNTL WBC COMPREHEN 42568 COMBINED COMBINED SIVE 5 PHYSICIAN PHYSICIAN METABOLIC S LA S LA PANEL INFLUENZA Q2038 [facility] VACC 5 VALLEY TIMOTHY SPLIT INTERNAL VIRUS 3 MED YRS & > IM FLUZONE ADMINISTR G0008 [facility] ATION OF 5 VALLEY TIMOTHY INFLUENZA [place] V[place] [address] [place] MCKEON ALL TRACT UPR 5 MEDICAL W/SM INT IMAGING W/MULT ASS SERIAL IMAGES NONEMERGE A0130 FEDERATED FEDERATED NCY 5 TRANSPORT TRANSPORT TRANSPORT ATION: ATION SER ATION SER ARTHURCLAUDINE Carrasquillo VAN RADEX 31807 [facility] ESOPHAGUS 5 [facility] INC INC ECG 68813 [facility] RE[facility] ROUTINE 5 [facility] ECG INC INC W/LEAST 12 LDS TRCG ONLY W/O I&R ECG 40415 KRISSY GASTON JR ROUTINE 5 [facility] W/LEAST P 12 LDS I&R ONLY NONEMERGE A0130 FEDERATED FEDERATED NCY 5 TRANSPORT TRANSPORT TRANSPORT ATION: ATION SER ATION SER SANDRA AKBAR NONEMERGE A0130 FEDERATED FEDERATED NCY 5 TRANSPORT TRANSPORT TRANSPORT ATION: ATION SER ATION SER SANDRA AKBAR COLLECTIO 54285 [facility] N VENOUS 5 [facility] BLOOD INC INC VENIPUNCT URE BLOOD 67312 [facility] COUNT 5 [facility] COMPLETE INC INC AUTO&AUTO DIFRNTL WBC SCREENING G0202 [facility] MAMMOGRAP INC INC HY MARIA DEL ROSARIO INCL CAD WHEN PERFORMD URNLS DIP 93385 [facility] STICK/TAB INC INC LET REAGENT AUTO MICROSCOP Y COMPUTER- 32839 [facility] AIDED 5 [facility] DETECTION INC INC SCREENING MAMMOGRAP HY COMPREHEN 94533 [facility] SIVE 5 [facility] METABOLIC INC INC PANEL DXA BONE 20611 [facility] DENSITY 5 [facility] STUDY 1/> INC INC SITES AXIAL SKEL RENAL 86106 [facility] FUNCTION 5 [facility] PANEL INC INC NONEMERGE A0130 FEDERATED FEDERATED NCY 5 TRANSPORT TRANSPORT TRANSPORT ATION: [facility] SER WHEELCHAI R VAN CULTURE 19476 [facility] BCT 5 [facility] ISOL&PRSM INC INC PTV ID ISOLATE EA URINE CULTURE 88910 [facility] BACTERIAL 5 [facility] INC INC QUANTTATI VE COLONY COUNT URINE NONEMERG A0120 FEDERATED FEDERATED TRNSPRT: 5 MINI-BUS TRANSPORT TRANSPORT MTN [facility] AREA/OTH SYS URNLS DIP 36553 [facility] REY [facility] STICK/TAB INC INC LET REAGENT AUTO MICROSCOP Y SUSCEPTIB 64689 KR[facility]SY CASTROON LTY STDY 5 [facility] ANTIMICRB INC INC IAL MICRO/AGA R DILUTJ INCONTINE T4541 [facility] N[facility] DISPOSABL AGENCY AGENCY E UNDPAD LARGE EA COLLECTIO 70502 [facility] CASTROON N VENOUS 5 [facility] BLOOD INC INC VENIPUNCT URE CULTURE 88532 [facility] BCT 5 [facility] ISOL&PRSM INC INC PTV ID ISOLATE EA URINE CULTURE 89291 KRISSYELVI REY BACTERIAL 5 [facility] INC INC QUANTTATI VE COLONY COUNT URINE PROTEIN 39583 [facility] CASTROON XCPT 5 [facility] REFRACTOM INC INC ETRY SERUM PLASMA/WH L BLD BLOOD 07646 KR[facility]SY KRISSY COUNT 5 [facility] COMPLETE INC INC AUTO&AUTO DIFRNTL WBC SUSCEPTIB 28034 [facility] CASTROON LTY STDY 5 [facility] ANTIMICRB INC INC IAL MICRO/AGA R DILUTJ URNLS DIP 23782 [facility] REY 5 [facility] STICK/TAB INC INC LET REAGENT AUTO MICROSCOP Y NONEMERG A0120 FEDERATED FEDERATED TRNSPRT: 5 MINI-BUS TRANSPORT TRANSPORT MTN ATION SER ATION SER AREA/OTH SYS RENAL 93875 [facility] FUNCTION 5 [facility] PANEL INC INC CREATININ 17252 [facility] REY E OTHER 5 [facility] [place] [address] COMBINED COMBINED THYROID 5 PHYSICIAN PHYSICIAN STIMULATI S LA S LA NG HORMONE TSH DISPBL T4535 [facility] LINER/KATHIE 5 HOME HOME ELD/GUARD HEALTH HEALTH /PAD/UNDG AGENCY AGENCY RMNT INCONT EA INCONTINE T4541 [facility] NCE 5 HOME HOME PRODUCT [facility] HEALTH DISPOSABL AGENCY AGENCY E UNDPAD LARGE EA NONEMERGE A0130 FEDERATED FEDERATED NCY 5 TRANSPORT TRANSPORT TRANSPORT ATION: ATION SER ATION SER WHEELCHAI R VAN BLOOD 43366 [facility] COUNT 5 [facility] COMPLETE INC INC AUTO&[place] [address] [facility] INFUSION 5 [facility] THERAPY INC INC PROPHYLAX IS/DX EA HOUR AMB A0427 [facility] [address] [place] [address] ALS AMBULANCE AMBULANCE EMERGENCY SE SE TRANSPORT LEVEL 1 [place] [address] [facility] INFUSION 5 [facility] THERAPY/P INC INC ROPHYLAXI S /DX 1ST TO 1 HR COMPREHEN 00123 [facility] SIVE 5 [facility] METABOLIC INC INC PANEL GROUND A0425 [facility] BALDERAS MILEAGE [address] [place] [address] PER AMBULANCE AMBULANCE STATUTE SE SE MILE ECG 34233 KRISSY CORBIN ROUTINE 5 [facility] W/LEAST P 12 LDS I&R ONLY ECG 17405 KRISSY REY ROUTINE 5 [facility] ECG INC INC W/LEAST 12 LDS TRCG ONLY W/O I&R LANCETS A4259 [facility] PER BOX 5 STATES STATES OF 100 MEDICAL MEDICAL SUPPLY SUPPLY BLD GLU A4253 [facility] TEST/REAG 5 STATES STATES T STRIPS MEDICAL MEDICAL HOME BLD SUPPLY SUPPLY GLU MON-50 DISPBL T4535 [facility]/KATHIE 5 HOME HOME ELD/GUARD HEALTH HEALTH /PAD/UNDG [place]ENC[place] [address] COMBINED COMBINED THYROID 5 PHYSICIAN PHYSICIAN STIMULATI S LA S LA NG HORMONE TSH SEDIMENTA 99961 COMBINED COMBINED TION RATE 5 PHYSICIAN PHYSICIAN RBC S LA S LA NON-AUTOM ATED COMPREHEN 56918 COMBINED COMBINED SIVE 5 PHYSICIAN PHYSICIAN METABOLIC S LA S LA PANEL BLOOD 88418 COMBINED COMBINED COUNT 5 PHYSICIAN PHYSICIAN COMPLETE S LA S LA AUTO&AUTO DIFRNTL WBC NONEMERGE A0130 FEDERATED FEDERATED NCY 5 TRANSPORT TRANSPORT TRANSPORT ATION: ATION SER ATION SER SANDRA AKBAR OTHER K0108 HOVEROUND HOVEROUND ACCESSORI 5 ES CORPORATI CORPORATI ON ON PWR E2365 HOVEROUND HOVEROUND WHLCHAIR 5 ACSS U-1 CORPORATI CORPORATI SEALED ON ON LEAD ACID BATTRY EA BLOOD 93721 KRISSY REY COUNT 5 [facility] COMPLETE INC INC AUTO&AUTO DIFRNTL WBC COLLECTIO 50698 KRISSY REY N VENOUS 5 [facility] BLOOD INC INC VENIPUNCT URE DNA 63874 KRISSY REY ANTIBODY 5 [facility] [place] TRIBES/DO INC INC UBLE STRANDED NONEMERGE A0130 FEDERATED FEDERATED NCY 5 TRANSPORT TRANSPORT TRANSPORT ATION: ATION SER ATION SER SANDRA AKBAR HEPATIC 19581 KRISSY REY FUNCTION 5 [facility] PANEL INC INC RENAL 53624 KRISSY REY FUNCTION 5 [facility] PANEL INC INC BLD GLU A4253 [facility] TEST/REAG 5 STATES STATES T [facility]IPS MED[facility] MEDICAL HOME BLD SUPPLY SUPPLY GLU MON-50 NORMAL A4256 [facility] LOW AND 5 [facility] STATES HIGH MEDICAL MEDICAL CALIBRATO SUPPLY SUPPLY R SOLUTION/ [place]-PO A4258 [facility] WERED [address] [place] [address] STATES DEVICE MEDICAL MEDICAL FOR SUPPLY SUPPLY LANCET EACH LANCETS A4259 [facility] PER BOX [address] [place] [address] MEDICAL MEDICAL SUPPLY SUPPLY NONEMERGE A0130 FEDERATED FEDERATED NCY 5 TRANSPORT TRANSPORT TRANSPORT ATION: ATION SER ATION SER SANDRA Carrasquillo VAN INCONTINE T4541 [facility] NCE 5 HOME HOME PRODUCT HEALTH HEALTH DISPOSABL AGENCY AGENCY E UNDPAD LARGE EA NONEMERGE A0130 FEDERATED FEDERATED NCY 5 TRANSPORT TRANSPORT TRANSPORT ATION: ATION SER ATION SER SANDRA Carrasquillo VAN NONEMERGE A0130 FEDERATED FEDERATED NCY 4 TRANSPORT TRANSPORT TRANSPORT ATION: ATION SER ATION SER SANDRA Carrasquillo VAN ADLT SZD T4526 [facility] DISPBL 4 HOME HOME INCONT HEALTH HEALTH PROD AGENCY AGENCY UNDWEAR MED EA DISPBL T4535 [facility]/KATHIE 4 HOME HOME ELD/GUARD HEALTH HEALTH /PAD/UNDG AGENCY AGENCY RMNT INCONT EA NONEMERGE A0130 FEDERATED FEDERATED NCY 4 TRANSPORT TRANSPORT TRANSPORT ATION: ATION SER ATION SER SANDRA Carrasquillo VAN DEBRIDEME 26141 LAUSE FED LAUSE FED NT NAIL 4 ANY METHOD 6/> NASL A7034 RICHARDSON RICHARDSON INTRFCE 4 HOME HOME POS [facility] PRSS EQUIPME EQUIPME DEVC W/WO HEAD STRAP COMPREHEN 13919 COMBINED COMBINED SIVE 4 PHYSICIAN PHYSICIAN METABOLIC S LA S LA PANEL BLOOD 20113 COMBINED COMBINED COUNT 4 PHYSICIAN PHYSICIAN COMPLETE S LA S LA AUTO&[place] [address] COMBINED COMBINED THYROID 4 PHYSICIAN PHYSICIAN STIMULATI S LA S LA NG HORMONE TSH NONEMERG A0120 FEDERATED FEDERATED TRNSPRT: 4 TRANS MINI-BUS TRANSPORT SERVBLUEG MTN ATION SER NATA AREA/OTH SYS ADLT SZD T4526 [facility] DISPBL 4 HOME HOME INCONT HEALTH HEALTH PROD AGENCY AGENCY UNDWEAR MED EA CREATININ 26891 KRISSY RENDON 4 [facility] SOURCE INC INC NONEMERG A0120 FEDERATED FEDERATED TRNSPRT: 4 TRANS MINI-BUS TRANSPORT SERVBLUEG MTN ATION SER NATA AREA/OTH SYS COMPREHEN 38371 KRISSY REY SIVE 4 [facility] METABOLIC INC INC PANEL SUSCEPTIB 90748 KRISSY REY LTY STDY 4 [facility] ANTIMICRB INC INC IAL MICRO/AGA R DILUTJ URNLS DIP 91799 KRISSY REY 4 [facility] STICK/TAB INC INC LET REAGENT AUTO MICROSCOP Y PROTEIN 27342 KRISSY REY XCPT 4 [facility] REFRACTOM INC INC ETRY SERUM PLASMA/WH L BLD BLOOD 22986 KRISSY REY COUNT 4 [facility] COMPLETE INC INC AUTO&AUTO DIFRNTL WBC 25 62050 KRISSY REY HYDROXY 4 [facility] INCLUDES [place] [address] KRISSY REY PARATHORM 4 [facility] ONE INC INC CULTURE 84147 KRISSY REY BACTERIAL 4 [facility] INC INC QUANTTATI VE COLONY COUNT URINE CULTURE 69383 KRISSY REY BCT 4 [facility] ISOL&PRSM INC INC PTV ID ISOLATE EA URINE COLLECTIO 38241 KRISSY REY N VENOUS 4 [facility] BLOOD INC INC VENIPUNCT URE RADEX 75319 KRISSY REY UPPER GI 4 [facility] W/WO INC INC GLUCAGON/ DELAY IMAGES W/KUB OPHTH 05938 [facility] 4 [facility] XM&EVAL CENTER COMPRHNSV ESTAB PT 1/> DETERMINA 06329 FARIDA GARCIA TION 4 [facility] REFRACTIV C[facility] E [facility] NONEMERG A0120 FEDERATED FEDERATED TRNSPRT: 4 TRANS MINI-BUS TRANSPORT SERVBLUEG MTN ATION SER NATA AREA/OTH SYS DISPBL T4535 [facility]/KATHIE 4 HOME HOME ELD/GUARD HEALTH HEALTH /PAD/UNDG AGENCY AGENCY RMNT INCONT EA NONEMERGE A0130 FEDERATED FEDERATED NCY 4 TRANS TRANSPORT TRANSPORT SERVBLUEG ATION: ATION SER NATA SANDRA AKBAR NONEMERG A0120 FEDERATED FEDERATED TRNSPRT: 4 TRANS MINI-BUS TRANSPORT SERVBLUEG MTN ATION SER NATA AREA/OTH SYS NONEMERGE A0130 FEDERATED FEDERATED NCY 4 TRANS TRANSPORT TRANSPORT SERVBLUEG ATION: ATION SER NATA Carrasquillo NAOMIE NONEMERGE A0130 FEDERATED FEDERATED NCY 4 TRANS TRANSPORT TRANSPORT SERVBLUEG ATION: ATION SER NATA Carrasquillo NAOMIE COLLECTIO 20374 KRISSY REY N VENOUS 4 [facility] BLOOD INC INC VENIPUNCT URE BLOOD 74434 KRISSY REY COUNT 4 [facility] COMPLETE INC INC AUTO&AUTO DIFRNTL WBC RENAL 21491 KRISSY REY FUNCTION 4 [facility] PANEL INC INC PROTEIN 28006 KRISSY REY XCPT 4 [facility] REFRACTOM INC INC ETRY SERUM PLASMA/WH L BLD URNLS DIP 84673 KRISSY REY 4 [facility] STICK/TAB INC INC LET REAGENT AUTO MICROSCOP Y CREATININ 42015 KRISSY REY E OTHER 4 [facility] SOURCE INC INC NONEMERGE A0130 FEDERATED FEDERATED NCY 4 TRANS TRANSPORT TRANSPORT SERVBLUEG ATION: ATION SER NATA Carrasquillo VAN INCONTINE T4541 [facility] NCE 4 HOME HOME PRODUCT HEALTH HEALTH DISPOSABL AGENCY AGENCY E UNDPAD LARGE EA DISPBL T4535 [facility]/KATHIE 4 HOME HOME ELD/GUARD HEALTH HEALTH /PAD/UNDG AGENCY AGENCY RMNT INCONT EA TUBING A7037 RICHARDSON BAI USED WITH 4 HOME HOME POSITIVE MEDICAL MEDICAL AIRWAY EQUIPME EQUIPME PRESSURE DEVICE HEADGEAR A7035 R[facility]AR[facility] BAI USED 4 HOME HOME W/POSITIV MEDICAL MEDICAL E AIRWAY EQUIPME EQUIPME PRESSURE DEVICE NASL A7034 R[facility] BAI INTRFCE 4 HOME HOME POS [facility] MEDICAL PRSS EQUIPME EQUIPME DEVC W/WO HEAD STRAP CONTINUOU E0601 RICHARDSON BAI S 4 HOME HOME POSITIVE MEDICAL MEDICAL AIRWAY EQUIPME EQUIPME PRESSURE DEVICE NONEMERGE A0130 FEDERATED FEDERATED NCY 4 TRANSPORT TRANSPORT TRANSPORT ATION: ATION SER ATION SER SANDRA Carrasquillo VAN NONEMERGE A0130 FEDERATED FEDERATED NCY 4 TRANSPORT TRANSPORT TRANSPORT ATION: ATION SER ATION SER SANDRA Carrasquillo VAN NONEMERGE A0130 FEDERATED FEDERATED NCY 4 TRANSPORT TRANSPORT TRANSPORT ATION: ATION SER ATION SER SANDRA Carrasquillo VAN CONTINUOU E0601 RICHARDSON RICHARDSON S 4 HOME HOME POSITIVE MEDICAL MEDICAL AIRWAY EQUIPME EQUIPME PRESSURE DEVICE CONTINUOU E0601 RICHARDSON RICHARDSON S 4 HOME HOME POSITIVE MEDICAL MEDICAL AIRWAY EQUIPME EQUIPME PRESSURE DEVICE NONEMERG A0120 FEDERATED FEDERATED TRNSPRT: 4 MINI-BUS TRANSPORT TRANSPORT MTN ATION SER ATION SER AREA/OTH SYS CUSHN A7032 RICHARDSON RICHARDSON NASAL 4 HOME HOME MASK MEDICAL MEDICAL INTERFACE EQUIPME EQUIPME REPLACEME NT ONLY EACH URINALYSI 86334 [employer], [employer], S 4 POCKET CLOSER POCKET CLOSER QUAL/SEMI ANDREY BALDERAS QUANT CO HOS CO HOS EXCEPT IMMUNOASS AYS PROTEIN 24180 [employer], [employer], TOTAL 4 POCKET CLOSER POCKET CLOSER XCPT ANDREY BALDERAS REFRACTOM CO HOS CO HOS ETRY URINE DNA 22391 [employer], [employer], ANTIBODY 4 POCKET CLOSER POCKET CLOSER [place] TRIBES/DO ANDREY BALDERAS UBLE CO HOS CO HOS STRANDED URNLS DIP 27142 [employer], [employer], 4 POCKET CLOSER POCKET CLOSER STICK/TAB ANDREY BALDERAS LET RGNT CO HOS CO HOS AUTO W/O MICROSCOP Y 25 68357 [employer], MHC INC, HYDROXY 4 POCKET CLOSER POCKET CLOSER INCLUDES ANDREY BALDERAS FRACTIONS CO HOS CO HOS IF PERFORMED BLOOD 74200 [employer], [employer], COUNT 4 POCKET CLOSER POCKET CLOSER COMPLETE ANDREY BALDERAS AUTO&AUTO CO HOS CO HOS DIFRNTL WBC CULTURE 64528 [employer], [employer], BACTERIAL 4 POCKET CLOSER POCKET CLOSER ANDREY BALDERAS QUANTTATI CO HOS CO HOS VE COLONY COUNT URINE CULTURE 08953 [employer], [employer], BCT 4 POCKET CLOSER POCKET CLOSER ISOL&PRSM ANDREY BALDERAS PTV ID CO HOS CO HOS ISOLATE EA URINE NONEMERG A0120 FEDERATED FEDERATED TRNSPRT: 4 MINI-BUS TRANSPORT TRANSPORT MTN ATION SER ATION SER AREA/OTH SYS RENAL 79640 [employer], [employer], FUNCTION 4 POCKET CLOSER POCKET CLOSER PANEL ANDREY BALDERAS CO HOS CO HOS SUSCEPTBI 83911 [employer], [employer], LTY STDY 4 POCKET CLOSER POCKET CLOSER ANTIMICRB ANDREY BALDERAS IAL AGNT CO HOS CO HOS AGAR DILUTJ COMPLEMEN 17024 [employer], [employer], T ANTIGEN 4 POCKET CLOSER POCKET CLOSER EACH ANDREY BALDERAS COMPONENT CO HOS CO HOS CREATININ 88839 [employer], [employer], E OTHER 4 POCKET CLOSER POCKET CLOSER SOURCE ANDREY BALDERAS CO HOS CO HOS ADLT SZD T4526 [facility] DISPBL 4 HOME HOME INCONT HEALTH HEALTH PROD AGENCY AGENCY UNDWEAR MED EA CONTINUOU E0601 RICHARDSON BAI S 4 HOME HOME POSITIVE MEDICAL MEDICAL AIRWAY EQUIPME EQUIPME PRESSURE DEVICE NONEMERG A0120 FEDERATED FEDERATED TRNSPRT: 4 MINI-BUS TRANSPORT TRANSPORT MTN ATION SER ATION SER AREA/OTH SYS CONTINUOU E0601 RICHARDSON YURELL S 4 HOME HOME POSITIVE MEDICAL MEDICAL AIRWAY EQUIPME EQUIPME PRESSURE DEVICE NONEMERG A0120 FEDERATED FEDERATED TRNSPRT: 4 MINI-BUS TRANSPORT TRANSPORT MTN ATION SER ATION SER AREA/OTH SYS INCONTINE T4541 [facility] NCE 4 HOME HOME PRODUCT HEALTH HEALTH DISPOSABL AGENCY AGENCY E UNDPAD LARGE EA ADLT SZD T4526 [facility] DISPBL 4 HOME HOME INCONT HEALTH HEALTH PROD AGENCY AGENCY UNDWEAR MED EA DISPBL T4535 [facility]/KATHIE 4 HOME HOME ELD/GUARD HEALTH HEALTH /PAD/UNDG AGENCY AGENCY RMNT INCONT EA NONEMERG A0120 FEDERATED FEDERATED TRNSPRT: 3 MINI-BUS TRANSPORT TRANSPORT MTN ATION SER ATION SER AREA/OT SYS PWR WC K0823 HOVEROUND HOVEROUND GRP 2 STD 3 CAPTAINS CORPORATI CORPORATI CHAIR PT ON ON TO &=300 LBS ECHO 20756 [facility] R-T 3 Y Y 2D [facility] W/WOM-MOD E COMPL SPEC&COLR D CONTINUOU E0601 RICHARDSON BAI S 3 HOME HOME POSITIVE MEDICAL MEDICAL AIRWAY EQUIPME EQUIPME PRESSURE DEVICE NONEMERG A0120 FEDERATED FEDERATED TRNSPRT: 3 MINI-BUS TRANSPORT TRANSPORT MTN [facility]/OT SYS XTRNL ECG 35869 [employer], & 48 HR 3 POCKET CLOSER POCKET CLOSER RECORDING ANDREY BALDERAS CO HOS CO HOS EXTERNAL 91959 [employer], [employer], ECG 3 POCKET CLOSER POCKET CLOSER SCANNING ANDREY BALDERAS ANALYSIS CO HOS CO HOS REPORT URINALYSI 75238 [employer], [employer], S 3 POCKET CLOSER POCKET CLOSER QUAL/SEMI ANDREY BALDERAS QUANT CO HOS CO [place] [address] [employer], [employer], PHOSPHORU 3 POCKET CLOSER POCKET CLOSER S ANDREY BALDERAS INORGANIC CO HOS CO HOS 25 45506 [employer], [employer], HYDROXY 3 POCKET CLOSER POCKET CLOSER INCLUDES ANDREY BALDERAS FRACTIONS [place] [address] [employer], PARATHORM 3 POCKET CLOSER POCKET CLOSER ONE ANDREY BALDERAS CO HOS CO HOS BLOOD 41635 [employer], [employer], COUNT 3 POCKET CLOSER POCKET CLOSER COMPLETE ANDREY BALDERAS AUTO&AUTO CO HOS CO HOS DIFRNTL WBC DNA 38422 [employer], [employer], ANTIBODY 3 POCKET CLOSER POCKET CLOSER [place] TRIBES/DO ANDREY BALDERAS UBLE CO HOS CO HOS STRANDED URNLS DIP 22837 [employer], [employer], 3 POCKET CLOSER POCKET CLOSER STICK/TAB ANDREY BALDERAS LET RGNT CO HOS CO HOS AUTO W/O MICROSCOP Y PROTEIN 27554 [employer], [employer], TOTAL 3 POCKET CLOSER POCKET CLOSER XCPT ANDREY BALDERAS REFRACTOM CO HOS CO HOS ETRY URINE COMPLEMEN 92755 [facility] INC, [employer], T TOTAL 3 POCKET CLOSER POCKET CLOSER HEMOLYTIC ANDREY ANDREY CO HOS CO HOS COMPLEMEN 93310 [employer], [employer], T ANTIGEN 3 POCKET CLOSER POCKET CLOSER EACH ANDREY ANDREY COMPONENT CO HOS CO HOS NONEMERG A0120 FEDERATED FEDERATED TRNSPRT: 3 MINI-BUS TRANSPORT TRANSPORT MTN [facility] SER [facility] SER AREA/OTH SYS COMPREHEN 20389 [employer], [employer], SIVE 3 POCKET CLOSER POCKET CLOSER METABOLIC ANDREY ANDREY PANEL CO HOS CO HOS CREATININ 16178 [employer], [employer], E OTHER 3 POCKET CLOSER POCKET CLOSER SOURCE ANDREY ANDREY CO HOS CO HOS NASL A7034 RICH[facility] BAI INTRFCE 3 HOME HOME POS [facility] PRSS EQUIPME EQUIPME DEVC W/WO HEAD STRAP TUBING A7037 RICHARDSON BAI USED WITH 3 HOME HOME POSITIVE MEDICAL MEDICAL AIRWAY EQUIPME EQUIPME PRESSURE DEVICE HOS BED E0260 RICHARDSON BAI SEMI-ELEC 3 HOME HOME W/ANY MEDICAL MEDICAL TYPE SIDE EQUIPME EQUIPME RAIL W/MATTRSS PWR WC K0823 HOVEROUND HOVEROUND GRP 2 STD 3 CAPTAINS CORPORATI CORPORATI CHAIR PT ON ON TO &=300 LBS NONEMERG A0120 FEDERATED FEDERATED TRNSPRT: 3 MINI-BUS TRANSPORT TRANSPORT MTN [facility] SER [facility] SER [facility]/OTH SYS CONTINUOU E0601 RICHARDSON BAI S 3 HOME HOME POSITIVE MEDICAL MEDICAL AIRWAY EQUIPME EQUIPME PRESSURE DEVICE LIPID 77227 [employer], [employer], PANEL 3 POCKET CLOSER POCKET CLOSER ANDREY ANDREY CO HOS CO HOS SEDIMENTA 77715 [employer], [employer], TION RATE 3 POCKET CLOSER POCKET CLOSER RBC ANDREY ANDREY NON-AUTOM CO HOS CO HOS ATED COMPREHEN 32987 [employer], [employer], SIVE 3 POCKET CLOSER POCKET CLOSER METABOLIC ANDREY ANDRE[place] [address] [employer], [employer], THYROID 3 POCKET CLOSER POCKET CLOSER STIMULATI ANDREY ANDREY NG CO HOS CO HOS HORMONE TSH HOS BED E0260 RICHARDSON BAI SEMI-ELEC 3 HOME HOME W/ANY MEDICAL MEDICAL TYPE SIDE EQUIPME EQUIPME RAIL W/MATTRSS PWR K0823 HOVEROUND HOVEROUND GRP 2 STD 3 CAPTAINS CORPORATI CORPORATI CHAIR PT ON ON TO &=300 LBS INCONTINE T4541 [facility] NCE 3 HOME HOME PRODUCT HEALTH HEALTH DISPOSABL AGENCY AGENCY E UNDPAD LARGE EA ADLT SZD T4526 [facility] DISPBL 3 HOME HOME INCONT HEALTH HEALTH PROD AGENCY AGENCY UNDWEAR MED EA DISPBL T4535 [facility]/KATHIE 3 HOME HOME ELD/GUARD HEALTH HEALTH /PAD/UNDG AGENCY AGENCY RMNT INCONT EA CONTINUOU E0601 RICHARDSON BAI S 3 HOME HOME POSITIVE MEDICAL MEDICAL AIRWAY EQUIPME EQUIPME PRESSURE DEVICE HOS BED E0260 RICHARDSON BAI SEMI-ELEC 3 HOME HOME W/ANY MEDICAL MEDICAL TYPE SIDE EQUIPME EQUIPME RAIL W/MATTRSS PWR K0823 HOVEROUND HOVEROUND GRP 2 STD 3 CAPTAINS CORPORATI CORPORATI CHAIR PT ON ON TO &=300 LBS CONTINUOU E0601 RICHARDSON BAI S 3 HOME HOME POSITIVE MEDICAL MEDICAL AIRWAY EQUIPME EQUIPME PRESSURE DEVICE US BREAST 19692 [employer], [employer], REAL 3 POCKET CLOSER POCKET CLOSER TIME ANDREY BALDERAS W/IMAGE CO HOS CO HOS DOCUMENTA TION DEBRIDEME 23455 LAUSE FED LAUSE FED NT NAIL 3 ANY METHOD 6/> HOS BED E0260 RICHARDSON BAI SEMI-ELEC 3 HOME HOME W/ANY MEDICAL MEDICAL TYPE SIDE EQUIPME EQUIPME RAIL W/MATTRSS PWR K0823 HOVEROUND HOVEROUND GRP 2 STD 3 CAPTAINS CORPORATI CORPORATI CHAIR PT ON ON TO &=300 LBS [facility] 41634 [facility] D[facility] TIME RADIOLOGY W/IMAGE ASSOCIAT DOCUMENTA TION NASL A7034 RICHARDS[facility] BAI INTRFCE 3 HOME HOME POS [facility] PRSS EQUIPME EQUIPME DEVC W/WO HEAD STRAP MAMMOGRAP 44782 [facility] HY 3 EIDER DEE UNILATERA RADIOLOGY L ASSOCIAT CONTINUOU E0601 RICHARDSON BAI S 3 HOME HOME POSITIVE MEDICAL MEDICAL AIRWAY EQUIPME EQUIPME PRESSURE DEVICE PROTEIN 40870 [employer], [employer], TOTAL 3 POCKET CLOSER POCKET CLOSER XCPT ANDREY BALDERAS REFRACTOM CO HOS CO HOS ETRY URINE 25 27997 [employer], [employer], HYDROXY 3 POCKET CLOSER POCKET CLOSER INCLUDES ANDREY ANDREY FRACTIONS CO HOS CO HOS IF PERFORMED BLOOD 72818 [employer], COUNT 3 POCKET CLOSER POCKET CLOSER COMPLETE ANDREYDIYA RIVEROOLAS AUTO&AUTO CO HOS CO HOS DIFRNTL WBC RENAL 81467 [employer], [employer], FUNCTION 3 POCKET CLOSER POCKET CLOSER PANEL ANDREY ANDREY CO HOS CO HOS CREATININ 39891 [employer], [employer], E OTHER 3 POCKET CLOSER POCKET CLOSER SOURCE ANDREY ANDREY CO HOS CO HOS HOS BED E0260 RICHARDSON BAI SEMI-ELEC 3 HOME HOME W/ANY MEDICAL MEDICAL TYPE SIDE EQUIPME EQUIPME RAIL W/MATTRSS PWR WC K0823 HOVEROUND HOVEROUND GRP 2 STD 3 CAPTAINS CORPORATI CORPORATI CHAIR PT ON ON TO &=300 LBS CONTINUOU E0601 RICHARDSON BAI S 3 HOME HOME POSITIVE MEDICAL MEDICAL AIRWAY EQUIPME EQUIPME PRESSURE DEVICE INCONTINE T4541 [facility] NCE 3 HOME HOME PRODUCT HEALTH HEALTH DISPOSABL AGENCY AGENCY E UNDPAD LARGE EA ADLT SZD T4526 [facility] DISPBL 3 HOME HOME INCONT HEALTH HEALTH PROD AGENCY AGENCY UNDWEAR MED EA DISPBL T4535 [facility] LIN[facility]/KATHIE 3 HOME HOME ELD/GUARD HEALTH HEALTH /PAD/UNDG AGENC[place] [address] COMBINED COMBINED THYROID 3 PHYSICIAN PHYSICIAN STIMULATI S LA S LA NG HORMONE TSH BLOOD 75628 COMBINED COMBINED COUNT 3 PHYSICIAN PHYSICIAN COMPLETE S LA S LA AUTO&AUTO DIFRNTL WBC SEDIMENTA 55050 COMBINED COMBINED TION RATE 3 PHYSICIAN PHYSICIAN RBC S LA S LA NON-AUTOM ATED LIPID 54408 COMBINED COMBINED PANEL 3 PHYSICIAN PHYSICIAN S LA S LA COLLECTIO 99770 [facility] VENOUS 3 VALLEY TIMOTHY BLOOD INTERNAL VENIPUNCT MED URE HOS BED E0260 RICHARDSON BAI SEMI-ELEC 3 HOME HOME W/ANY MEDICAL MEDICAL TYPE SIDE EQUIPME EQUIPME RAIL W/MATTRSS PWR WC K0823 HOVEROUND HOVEROUND GRP 2 STD 3 CAPTAINS CORPORATI CORPORATI CHAIR PT ON ON TO &=300 LBS POLYSOM 98612 CRISTIAN CORNEJO CORNEJO CRISTIAN 6/>YRS 3 SLEEP CONSULTIN W/CPAP G SRV 4/> ADDL IKER ATTND BASIC 42232 [employer], [employer], METABOLIC 3 POCKET CLOSER POCKET CLOSER PANEL ANDREY ANDREY CALCIUM CO HOS CO HOS TOTAL URNLS DIP 13074 [employer], [employer], 3 POCKET CLOSER POCKET CLOSER STICK/TAB ANDREY BALDERAS LET RGNT CO HOS CO HOS AUTO W/O MICROSCOP Y PROTEIN 31570 [employer], [employer], TOTAL 3 POCKET CLOSER POCKET CLOSER XCPT ANDREY ANDREY REFRACTOM CO HOS CO HOS ETRY URINE URINALYSI 23607 [employer], [employer], S 3 POCKET CLOSER POCKET CLOSER QUAL/SEMI ANDREY ANDREY QUANT CO HOS CO HOS EXCEPT IMMUNOASS AYS CREATININ 99721 [employer], [employer], E OTHER 3 POCKET CLOSER POCKET CLOSER SOURCE ANDREY ANDREY CO HOS CO HOS CONTINUOU E0601 RICH[facility] BAI S 3 HOME HOME POSITIVE MEDICAL MEDICAL AIRWAY EQUIPME EQUIPME PRESSURE DEVICE POLYSOM 30104 [facility] 6/>YRS 3 [facility] W/CPAP 4/> ADDL IKER ATTND BASIC 34407 [employer], [employer], METABOLIC 3 POCKET CLOSER POCKET CLOSER PANEL ANDREY ANDREY CALCIUM CO HOS CO HOS TOTAL INJECTION J[address] LIDOCAINE HCL INTRAVENO US INFUS 10 MG CLOSURE C1760 [address] VASCULAR INTRDUCR/ C1894 [facility] SHEATH [address] [place] [address] NOT GUID INTRACARD EP NON-LASR INJECTION [id number] [facility] [place] [address] [place] [address] CITRATE 0.1 MG CATH PLMT 04793 [facility] L HRT & [address] [place] [address] ARTS W/NJX & ANGIO IMG S&I BLOOD 90050 CHRISTOPHER WHITE COUNT 3 [facility] AUTOMATED COLLECTIO 92023 CHRISTOPHER WHITE N VENOUS 3 [facility] VENIPUNCT URE RADIOLOGI 71383 [facility] [place] SCALF IRIS C EXAM 3 RADIOLOGY CHEST 2 VIEWS FRONTAL&L ATERAL BASIC 63473 CHRISTOPHER WHITE METABOLIC 3 [facility] CALCIUM TOTAL PWR WC K0823 HOVEROUND HOVEROUND GRP 2 STD 3 CAPTAINS CORPORATI CORPORATI CHAIR PT ON ON TO &=300 LBS HOS BED E0260 R[facility] BAI SEMI-ELEC 3 HOME HOME W/ANY MEDICAL MEDICAL TYPE SIDE EQUIPME EQUIPME RAIL W/MATTRSS HEADGEAR A7035 [facility] BAI USED 3 HOME HOME W/POSITIV MEDICAL MEDICAL E AIRWAY EQUIPME EQUIPME PRESSURE DEVICE TUBING A7037 [facility] BAI USED WITH 3 HOME HOME POSITIVE MEDICAL MEDICAL AIRWAY EQUIPME EQUIPME PRESSURE DEVICE CONTINUOU E0601 R[facility] BAI S 3 HOME HOME POSITIVE MEDICAL MEDICAL AIRWAY EQUIPME EQUIPME PRESSURE DEVICE FILTER A7038 [facility] BAI DISPBL 3 HOME HOME USED MEDICAL MEDICAL W/POS EQUIPME EQUIPME ARWAY PRESSURE DEVICE FILTER A7039 [facility] [facility] NON 3 HOME HOME DISPBL MEDICAL MEDICAL USED EQUIPME EQUIPME W/POS ARWAY PRESS DEVICE FULL FACE A7030 [facility] MASK 3 HOME HOME USED MEDICAL MEDICAL W/POS EQUIPME EQUIPME ARWAY PRESS DEVICE EA HUMDIFIR [id number] [facility] [facility] HEATED 3 HOME HOME USED MEDICAL MEDICAL W/POS EQUIPME EQUIPME ARWAY PRESSURE DEVICE TECHNETIU A9540 CHRISTOPHER WHITE M TC-99M 3 [facility] STDY DOSE UP TO 10 MCI TECHNETIU A9539 CHRISTOPHER WHITE M TC-99M 3 [facility] DX UP TO 25 MCI PULMONARY 98364 CHRISTOPHER WHITE 3 [facility] [place] [id number] CRISTIAN CORNEJO CORNEJO CRISTIAN ROUTINE 3 MD ECG CONSULTIN W/LEAST G SRV 12 LDS W/I&R POLYSOM 76962 CRISTIAN CORNEJO CORNEJO CRISTIAN 6/>YRS 3 MD SLEEP 4/> CONSULTIN ADDL G SRV IKER ATTND POLYSOM 21117 CHRISTOPHER WHITE 6/>YRS 3 [facility] SLEEP 4/> [facility] ADDL IKER ATTND ECHO 64482 CRISTIAN CORNEJO CORNEJO CRISTIAN TTHRC R-T 3 2D CONSULTIN W/WOM-MOD G SRV E COMPL SPEC&COLR D DUP-SCAN 55029 CRISTIAN CORNEJO CORNEJO CRISTIAN XTR VEINS 3 COMPLETE CONSULTIN G SRV BILATERAL STUDY CV STRS 30912 KRISSY CORBIN TST 3 [facility] RX CONT P ECG I&R ONLY CV STRS 54447 KRISSY ERY TST 3 [facility] XERS&/OR INC INC RX CONT ECG TRCG ONLY CV STRS 56010 [facility] TST 3 PHYSICIAN XERS&/OR S GROUP RX CONT ECG W/O I&R MYOCARDIA [id number] EILEEN Bran SPECT 3 MEDICAL ANTWAN SINGLE IMAGING STUDY AT ASS REST OR STRESS INJECTION J2785 KRISSY REY 3 [facility] REGADENOS INC INC ON 0.1 MG MYOCARDIA 04016 KRISSY Bran SPECT 3 [facility] MULTIPLE INC INC STUDIES TECHNETIU A9500 KRISSY Robertson TC-99M 3 [facility] SESTAMIBI INC INC DX PER STUDY DOSE HOS BED E0260 [facility] SEMI-ELEC 3 HOME HOME W/ANY MEDICAL MEDICAL TYPE SIDE EQUIPME EQUIPME RAIL W/MATTRSS LIPID 65725 [facility] PANEL 3 [facility] PWR WC K0823 HOVEROUND HOVEROUND GRP 2 STD 3 CAPTAINS CORPORATI CORPORATI CHAIR PT ON ON TO &=300 LBS BASIC 03990 [facility]Y [facility] MET[facility]OLIC 3 [facility] CALCIUM TOTAL ECG 76590 [facility] ROUTINE 3 [facility] W/LEAST 12 LDS TRCG ONLY W/O I&R ECG 21185 NAVID MATOS ROUTINE 3 EMERGENCY [place] ECG SERVICES W/LEAST 12 LDS I&R ONLY COLLECTIO 80052 [facility] N VENOUS 3 [facility] VENIPUNCT URE OBSERVATI 01780 NAVID MATOS ON CARE 3 EMERGENCY [place] DISCHARGE SERVICES MANAGEMEN T BLOOD 93151 [facility] COUNT 3 [facility] [place] [address] [facility] TROPONIN 3 [facility] [address] [facility] TROPONIN 3 [facility] KETAN INJECTION J[address] [facility] [place] INE PER 15 MG INJECTION J2710 [address] [facility] METHY[facility]UL FATE UP TO 0.5 MG INJECTION [id number] [facility] FENTANYL 3 [facility] HOSPITAL 0.1 MG COLLECTIO 10549 [facility] N VENOUS 3 [facility] VENIPUNCT URE INJECTION J[address] HOSPITAL ON HCL PER 1 MG HOSPITAL [id number] [facility] OBSERVATI 3 [facility] HOSPITAL SERVICE PER HOUR INITIAL 07520 NAVID SINCLAIR 3 EMERGENCY PEDRITO IGN ON SERVICES CARE/DAY 70 MINUTES NONINVASI 97417 MULBERRY [facility] VE 3 [facility] OXIMETRY SINGLE DETER INJECTION [id number] CHRISTOPHER JAINON 3 [facility] SODIUM 500 MG INJECTION J2250 [facility] HARRELL[facility] DIVISIONON 3 [facility] MIDAZOLAM [facility] HCL PER 1 MG ECG 95170 CHRISTOPHER JAINON ROUTINE 3 [facility] HOSPITAL W/LEAST 12 LDS TRCG ONLY W/O I&R INJECTION J1100 [facility] [address]RELL[address] [facility] SONE SODIUM PHOSPHATE 1 MG INJECTION J2001 [facility] [address] LIDOCAINE [facility] HCL INTRAVENO US INFUS 10 MG ANESTHESI 31490 [facility] RONY Cruz 3 ANESTHESI CAM ANORECTAL A GROUP PS PROCEDURE ANOSCOPY 35701 CELIA YANG JR DX 3 SAMIRA SAMIRA W/COLLJ SPEC BR/WA SPX WHEN PRFRMD HEMORRHOI 94320 [facility] MULBERRY DECTOMY [address] [place] [address] RUBBER BAND LIGATIONS CREATINE 09011 CHRISTOPHER WHITE KINASE MB 3 [facility] [place] [address] [facility] WHITE THYROID 3 [facility] [place] [address] J[facility]IO [facility] WHITE FREE [address] [place] [address] HOSPITAL ECG 04973 CRISTIAN CORNEJO CORNEJO CRISTIAN ROUTINE 3 MD ECG CONSULTIN W/LEAST G SRV 12 LDS I&R ONLY ECG 13559 CHRISTOPHER WHITE ROUTINE 3 [facility] HOSPITAL W/LEAST 12 LDS TRCG ONLY W/O I&R BASIC 31407 [facility] WHITE METABOLIC 3 [facility] CALCIUM TOTAL COLLECTIO 89197 CHRISTOPHER WHITE N VENOUS 3 [facility] BLOOD [facility] VENIPUNCT URE BLOOD 23319 CHRISTOPHER WHITE COUNT 3 [facility] HEMOGLOBI [facility] N BLOOD 61763 [facility] WHITE COUNT 3 [facility] HEMATOCRI [facility] T DISPBL T4535 [facility]KATHIE 3 HOME HOME ELD/GUARD HEALTH HEALTH /PAD/UNDG AGENCY AGENCY RMNT INCONT EA INCONTINE T4541 [facility] NCE 3 HOME HOME PRODUCT HEALTH HEALTH DISPOSABL AGENCY AGENCY E UNDPAD LARGE EA PWR K0823 [facility] HOVEROUND GRP 2 STD 3 CAPTAINS CORPORATI CORPORATI CHAIR PT ON ON TO &=300 LBS HOS BED E0260 [facility] SEMI-ELEC 3 HOME HOME W/ANY MEDICAL MEDICAL TYPE SIDE EQUIPME EQUIPME RAIL W/MATTRSS HOSPITAL 46741 [facility] DISCHARGE 3 [facility] DAY INTERNAL MANAGEMEN MED T 30 MIN/< SBSQ 92049 [facility] 3 [facility] CARE/DAY INTERNAL 25 MED MINUTES SBSQ 63463 [facility] 3 [facility] CARE/DAY INTERNAL 25 MED MINUTES INITIAL 48683 [facility] 3 [facility] CARE/DAY INTERNAL 50 MED MINUTES RADIOLOGI 46451 [facility] EXAM 3 LILIBETH CHEST 2 RADIOLOGY VIEWS ASSOCIAT FRONTAL&L ATERAL US BREAST 35869 [facility] [employer], [employer], REAL 3 POCKET CLOSER POCKET CLOSER TIME ANDREY BALDERAS W/IMAGE CO HOS CO HOS DOCUMENTA TION MAMMOGRAP 22486 [facility] [employer], [facility], HY 3 POCKET CLOSER POCKET CLOSER UNILATERA ANDREY ANDREY L CO HOS CO HOS MAMMOGRAP 33786 [facility] INC, [facility], HY 3 POCKET CLOSER POCKET CLOSER BILATERAL ANDREY ANDREY CO HOS CO HOS PWR K0823 HOVER[facility] HOVEROUND GRP 2 STD 3 CAPTAINS CORPORATI CORPORATI CHAIR PT ON ON TO &=300 LBS HOS BED E0260 R[facility]ARDSON RICHARDSON SEMI-ELEC 3 HOME HOME W/ANY MEDICAL MEDICAL TYPE SIDE EQUIPME EQUIPME RAIL W/MATTRSS RENAL 59808 [facility] INC, [facility] INC, FUNCTION 3 POCKET CLOSER POCKET CLOSER PANEL ANDREY HANSENS CO HOS CO HOS SUSCEPTBI 04356 [facility], [facility] INC, LTY STDY 3 POCKET CLOSER POCKET CLOSER ANTIMICRB ANDREY BALDERAS IAL AGNT CO HOS CO HOS AGAR DILUTJ URNLS DIP 91358 [employer], 3 POCKET CLOSER POCKET CLOSER STICK/TAB ANDREY RIVEROOLAS LET CO HOS CO HOS REAGENT AUTO MICROSCOP Y CULTURE 72888 [employer], BACTERIAL 3 POCKET CLOSER POCKET CLOSER ANDREY ANDREY QUANTTATI CO HOS CO HOS VE COLONY COUNT URINE CULTURE 54349 [employer], [employer], BCT 3 POCKET CLOSER POCKET CLOSER ISOL&PRSM ANDREY RIVEROOLAS PTV ID CO HOS CO HOS ISOLATE EA URINE BLOOD 81609 [employer], [employer], COUNT 3 POCKET CLOSER POCKET CLOSER COMPLETE ANDREY ANDREY AUTO&AUTO CO HOS CO HOS DIFRNTL WBC 25 52107 [employer], [employer], HYDROXY 3 POCKET CLOSER POCKET CLOSER INCLUDES ANDREY ANDREY FRACTIONS [place] [address] [employer], [employer], PARATHORM 3 POCKET CLOSER POCKET CLOSER ONE ANDREY ANDREY CO HOS CO HOS PROTEIN 46620 [employer], [employer], TOTAL 3 POCKET CLOSER POCKET CLOSER XCPT ANDREY ANDREY REFRACTOM CO HOS CO HOS ETRY URINE CREATININ 02147 [employer], [employer], E OTHER 3 POCKET CLOSER POCKET CLOSER SOURCE ANDREY ANDREY CO HOS CO HOS RADEX 78006 [facility] ESOPHAGUS 3 [facility] RADIOLOGY ASSOCIAT SCREENING 46966 [facility] 3 [facility] MAMMOGRAP RADIOLOGY HY ASSOCIAT BILATERAL DISPBL T4535 [facility]/KATHIE 3 HOME HOME ELD/GUARD HEALTH HEALTH /PAD/UNDG AGENCY AGENCY RMNT INCONT EA ADLT SZD T4526 [facility] DISPBL 3 HOME HOME INCONT HEALTH HEALTH PROD AGENCY AGENCY UNDWEAR MED EA MRI 87224 [facility] 3 Y Y CANAL [facility] LUMBAR W/O CONTRAST MATERIAL HOS BED E0260 RICHARDSON BAI SEMI-ELEC 3 HOME HOME W/ANY MEDICAL MEDICAL TYPE SIDE EQUIPME EQUIPME RAIL W/MATTRSS PWR K0823 HOVEROUND HOVEROUND GRP 2 STD 3 CAPTAINS CORPORATI CORPORATI CHAIR PT ON ON TO &=300 LBS ANES 90441 [facility] K[facility] LOWER 3 ANESTH INTESTINE OF [place] [address] KRISSY KRISSY INFUSION 3 [facility] THERAPY INC INC PROPHYLAX IS/[place] [address] KRISSY KRISSY INFUSION 3 [facility] THERAPY/P INC INC ROPHYLAXI S /DX 1ST TO 1 HR COLOREC G0105 ALLTOYIN JR ALLRAN JR CANCR 3 SAMIRA SAMIRA SCR; COLONSCPY INDIVIDUL @HIGH RISK NJX [address] [facility] DX/THER 3 Y Y AGT PVRT [facility] FACET JT LMBR/SAC 1 LEVEL INJECTION J3301 [facility] 3 Y Y [facility] LONE ACETONIDE NOS [address] LOCM Q[address] [facility] [phone] Y Y MG/ML [facility] IODINE CONCENTRA TION PER ML ADLT SZD T4526 [facility] DIS[facility] 2 HOME HOME INCONT HEALTH HEALTH PROD AGENCY AGENCY UNDWEAR MED EA DISPBL T4535 [facility]/KATHIE 2 HOME HOME ELD/GUARD HEALTH HEALTH /PAD/UNDG AGENCY AGENCY RMNT INCONT EA PWR E2365 [facility] HOVEROUND WHLCHAIR 2 ACSS U-1 CORPORATI CORPORATI SEALED ON ON LEAD ACID BATTRY EA PWR WC K0823 HOVEROUND HOVEROUND GRP 2 STD 2 CAPTAINS CORPORATI CORPORATI CHAIR PT ON ON TO &=300 LBS HOS BED E0260 RICHARDSON BAI SEMI-ELEC 2 HOME HOME W/ANY MEDICAL MEDICAL TYPE SIDE EQUIPME EQUIPME RAIL W/MATTRSS THERAPEUT 27587 [employer], [employer], IC PX 1/> 2 POCKET CLOSER POCKET CLOSER AREAS ANDREY ANDREY EACH 15 CO HOS CO HOS MIN EXERCISES THERAPEUT 81428 [employer], [employer], IC PX 1/> 2 POCKET CLOSER POCKET CLOSER AREAS ANDREY ANDREY EACH 15 CO HOS CO HOS MIN EXERCISES INCONTINE T4541 [facility] NCE 2 HOME HOME PRODUCT HEALTH HEALTH DISPOSABL AGENCY AGENCY E UNDPAD LARGE EA CREATININ 46755 [employer], MHC INC, E BLOOD 2 POCKET CLOSER POCKET CLOSER ANDREY ANDREY CO HOS CO HOS THERAPEUT 42592 [employer], [employer], IC PX 1/> 2 POCKET CLOSER POCKET CLOSER AREAS ANDREY ANDREY EACH 15 CO HOS CO HOS MIN EXERCISES CT THORAX 32731 [facility] [employer], [employer], W/O 2 POCKET CLOSER POCKET CLOSER CONTRAST ANDREY ANDRE[place] [address] [employer], [employer], UREA 2 POCKET CLOSER POCKET CLOSER NITROGEN ANDREY ANDREY QUANTITAT CO HOS CO HOS KETAN THERAPEUT 30052 [employer], [employer], IC PX 1/> 2 POCKET CLOSER POCKET CLOSER AREAS ANDREY ANDREY EACH 15 CO HOS CO HOS MIN EXERCISES HOS BED E0260 RICHARDSON RICHARDSON SEMI-ELEC 2 HOME HOME W/ANY MEDICAL MEDICAL TYPE SIDE EQUIPME EQUIPME RAIL W/MATTRSS THERAPEUT 31388 [facility] [employer], [employer], IC PX 1/> 2 POCKET CLOSER POCKET CLOSER AREAS ANDREY ANDREY EACH 15 [place] [address] [employer], [employer], 1/> AREAS 2 POCKET CLOSER POCKET CLOSER EA 15 ANDREY ANDREY MIN GAIT CO HOS CO HOS TRAINJ W/STAIR RADIOLOGI 30781 [facility] C EXAM 2 EIDER DEE CHEST 2 RADIOLOGY VIEWS ASSOCIAT FRONTAL&L ATERAL THERAPEUT 32207 [employer], [employer], IC PX 1/> 2 POCKET CLOSER POCKET CLOSER AREAS ANDREY ANDREY EACH 15 CO HOS CO HOS MIN EXERCISES THERAPEUT 36561 [employer], [employer], IC PX 1/> 2 POCKET CLOSER POCKET CLOSER AREAS ANDREY ANDREY EACH 15 CO HOS CO HOS MIN EXERCISES PHYSICAL 45464 [employer], [employer], THERAPY 2 POCKET CLOSER POCKET CLOSER EVALUATIO [place] [address] [facility] ABDOMEN & 2 Y Y PELVIS [facility] W/O CONTRAST MATERIAL RADEX 23288 [place] DELICIA PEDRO SHOULDER 2 MEDICAL COMPLETE SERV MINIMUM 2 FOUNDATIO VIEWS CREATINE [address] [facility] KINASE 2 Y Y TOTAL [facility] [place] [address] [facility] ALDOLASE 2 Y Y HOSPITAL HOSPITAL RADIOLOGI 49323 [facility] DELICIA PEDRO C 2 MEDICAL EXAMINATI SERV ON KNEE FOUNDATIO 1/2 VIEWS [address]IMENTA [address] [facility] TION RATE 2 Y Y RBC [facility] AUTOMATED RADEX 98537 [facility] VASQUEZ SPINE 2 MEDICAL LUMBOSACR SERV AL 2/3 FOUNDATIO VIEWS COLLECTIO [address] [facility] N VENOUS 2 Y Y BLOOD [facility] VENIPUNCT URE C-REACTIV [address] [facility] E PROTEIN 2 Y Y HOSPITAL [facility] ADLT SZD T4526 [facility] 2 HOME HOME INCONT HEALTH HEALTH PROD AGENCY AGENCY UNDWEAR MED EA DISPBL T4535 [facility]/KATHIE 2 HOME HOME ELD/GUARD HEALTH HEALTH /PAD/UNDG AGENCY AGENCY RMNT INCONT EA CREATININ 34050 [employer], [employer], E OTHER 2 POCKET CLOSER POCKET CLOSER SOURCE ANDREY BALDERAS CO HOS CO HOS PROTEIN 37147 [employer], TOTAL 2 POCKET CLOSER POCKET CLOSER XCPT ANDREY BALDERAS REFRACTOM CO HOS CO HOS ETRY URINE CULTURE 13072 [employer], BACTERIAL 2 POCKET CLOSER POCKET CLOSER ANDREY BALDERAS QUANTTATI CO HOS CO HOS VE COLONY COUNT URINE CULTURE 85375 [employer], BCT 2 POCKET CLOSER POCKET CLOSER ISOL&PRSM ANDREY BALDERAS PTV ID CO HOS CO HOS ISOLATE EA URINE BLOOD 03276 [employer], [employer], COUNT 2 POCKET CLOSER POCKET CLOSER COMPLETE ANDREY BALDERAS AUTO&AUTO CO HOS CO HOS DIFRNTL WBC URNLS DIP 58966 [employer], 2 POCKET CLOSER POCKET CLOSER STICK/TAB ANDREY BALDERAS LET CO HOS CO HOS REAGENT AUTO MICROSCOP Y SUSCEPTBI 06197 [employer], [employer], LTY STDY 2 POCKET CLOSER POCKET CLOSER ANTIMICRB ANDREY BALDERAS IAL AGNT CO HOS CO HOS AGAR DILUTJ RENAL 73425 [employer], FUNCTION 2 POCKET CLOSER POCKET CLOSER PANEL ANDREY ANDREY CO HOS CO HOS BASIC 05728 [facility] [employer], [facility] INC, METABOLIC 2 POCKET CLOSER POCKET CLOSER PANEL ANDREY ANDREY CALCIUM CO HOS CO HOS TOTAL BLOOD 30447 [facility] [employer], [facility] INC, COUNT 2 POCKET CLOSER POCKET CLOSER COMPLETE ANDREY ANDREY AUTO&AUTO CO HOS CO HOS DIFRNTL WBC BLOOD 98974 [facility] [employer], [facility] INC, COUNT 2 POCKET CLOSER POCKET CLOSER COMPLETE ANDREY ANDREY AUTO&AUTO CO [place] [address] [facility] [employer], [facility] INC, LIPASE 2 POCKET CLOSER POCKET CLOSER ANDREY ANDREY CO HOS CO HOS CULTURE 57374 [facility], [facility], BCT 2 POCKET CLOSER POCKET CLOSER ISOL&PRSM ANDREY ANDREY PTV ID CO HOS CO HOS ISOLATE EA URINE CULTURE 09970 [facility], [facility] INC, BACTERIAL 2 POCKET CLOSER POCKET CLOSER ANDREY ANDREY QUANTTATI CO HOS CO HOS VE COLONY COUNT URINE DIRECT G0379 [facility] [employer], [facility], ADMISSION 2 POCKET CLOSER POCKET CLOSER PATIENT [facility] CO HOS CO HOS [facility] G0378 [facility], [facility], OBSERVATI 2 POCKET CLOSER POCKET CLOSER ON ANDREY ANDREY SERVICE CO HOS CO HOS PER HOUR INJECTION J2405 [facility] [employer], [facility] INC, 2 POCKET CLOSER POCKET CLOSER ONDANSETR ANDREY ANDREY ON HCL CO HOS CO HOS PER 1 MG SUSCEPTBI 98373 [facility] [employer], [facility] INC, LTY STDY 2 POCKET CLOSER POCKET CLOSER ANTIMICRB ANDREY ANDREY IAL AGNT CO HOS CO HOS AGAR DILUTJ URNLS DIP 65440 [facility] [employer], [facility] INC, 2 POCKET CLOSER POCKET CLOSER STICK/TAB ANDREY ANDREY LET CO HOS [place] [address] [facility] [employer], [facility] INC, INFUSION 2 POCKET CLOSER POCKET CLOSER THERAPY/P ANDREY ANDREY ROPHYLAXI CO HOS CO HOS S /DX 1ST TO 1 HR COMPREHEN 30130 [facility] [employer], [facility] INC, SIVE 2 POCKET CLOSER POCKET CLOSER METABOLIC ANDREY [place] [address] [facility] [employer], [facility] INC, INFUSION 2 POCKET CLOSER POCKET CLOSER HYDRATION ANDREY ANDREY INITIAL CO HOS CO HOS 31 MIN-1 HOUR DISPBL T4535 [facility]KATHIE 2 HOME HOME ELD/GUARD HEALTH HEALTH /PAD/UNDG AGENCY AGENCY RMNT INCONT EA ADLT SZD T4526 [facility] DIS[facility]BL 2 HOME HOME INCONT HEALTH HEALTH PROD AGENCY AGENCY UNDWEAR MED EA ECG 31547 CRISTIAN CORNEJO CORNEJO CRISTIAN ROUTINE 2 MD ECG CONSULTIN W/LEAST G SRV 12 LDS I&R ONLY ECG 15393 CRISTIAN CORNEJO CORNEJO CRISTIAN ROUTINE 2 MD ECG CONSULTIN W/LEAST G SRV 12 LDS I&R ONLY HOSPITAL 56956 JAVIER JAVIER DISCHARGE 2 PEDRO PEDRO DAY MANAGEMEN T 30 MIN/< [place] [address] [employer], [employer], INFUSION 2 POCKET CLOSER POCKET CLOSER HYDRATION ANDREY BLADERAS INITIAL CO HOS CO HOS 31 MIN-1 HOUR FIBRIN 37376 [employer], [employer], DGRADJ 2 POCKET CLOSER POCKET CLOSER PRODUCTS ANDREY BALDERAS D-DIMER CO HOS CO HOS QUAL/SEMI HEATHER PROTHROMB 06972 [employer], [employer], IN TIME 2 POCKET CLOSER POCKET CLOSER ANDREY HANSENS CO HOS CO HOS COMPREHEN 86686 [employer], [employer], SIVE 2 POCKET CLOSER POCKET CLOSER METABOLIC ANDREY [place] [address] [employer], [employer], INFUSION 2 POCKET CLOSER POCKET CLOSER THERAPY/P ANDREY BALDERAS ROPHYLAXI CO HOS CO HOS S /DX 1ST TO 1 HR URNLS DIP 37085 [employer], [employer], 2 POCKET CLOSER POCKET CLOSER STICK/TAB ANDREY BALDERAS LET CO HOS CO HOS REAGENT AUTO MICROSCOP Y NATRIURET 70602 [employer], [employer], IC 2 POCKET CLOSER POCKET CLOSER PEPTIDE ANDREY HANSENS CO HOS CO HOS SUSCEPTBI 91241 [employer], [employer], LTY STDY 2 POCKET CLOSER POCKET CLOSER ANTIMICRB ANDREY BALDERAS IAL AGNT CO HOS CO HOS AGAR DILUTJ ECG 72869 [employer], [employer], ROUTINE 2 POCKET CLOSER POCKET CLOSER ECG ANDREY ANDREY W/LEAST CO HOS CO HOS 12 LDS TRCG ONLY W/O I&R CULTURE 31415 [facility] INC, [facility] INC, BACTERIAL 2 POCKET CLOSER POCKET CLOSER ANDREY ANDREY QUANTTATI CO HOS CO HOS VE COLONY COUNT URINE RADIOLOGI 12623 [facility] [place] C 2 LILIBETH EXAMINATI RADIOLOGY ON CHEST ASSOCIAT SINGLE [place]IEW FRONTAL CULTURE 08774 [facility] INC, [facility], BCT 2 POCKET CLOSER POCKET CLOSER ISOL&PRSM ANDREY ANDREY PTV ID CO HOS CO HOS ISOLATE EA URINE CREATINE 43973 [facility] INC, [employer], KINASE 2 POCKET CLOSER POCKET CLOSER TOTAL ANDREY ANDREY CO HOS CO HOS BLOOD 91911 [facility] [employer], [facility] INC, COUNT 2 POCKET CLOSER POCKET CLOSER COMPLETE ANDREY ANDREY AUTO&AUTO [place] [address] [facility] [employer], [facility] INC, TROPONIN 2 POCKET CLOSER POCKET CLOSER QUANTITAT ANDREY ANDREY KETAN CO HOS CO HOS CREATINE 71264 [facility] [employer], [facility] INC, KINASE MB 2 POCKET CLOSER POCKET CLOSER FRACTION ANDREY [place] [address] [employer], [employer], FREE 2 POCKET CLOSER POCKET CLOSER THYROXINE ANDRE[place] [address] [employer], [facility] INC, THYROID 2 POCKET CLOSER POCKET CLOSER STIMULATI ANDREY ANDREY NG CO HOS CO HOS [place]ORMONE TSH LIPID 41685 [facility] [employer], [facility] INC, PANEL 2 POCKET CLOSER POCKET CLOSER ANDREY ANDREY CO HOS CO HOS COMPREHEN 02737 [employer], [employer], SIVE 2 POCKET CLOSER POCKET CLOSER METABOLIC ANDREY ANDREY PANEL CO HOS CO HOS ECG 57568 CRISTIAN CORNEJO CORNEJO CRISTIAN ROUTINE 2 ECG CONSULTIN W/LEAST G SRV 12 LDS I&R ONLY URNLS DIP 45809 [facility] [employer], [facility] INC, 2 POCKET CLOSER POCKET CLOSER STICK/TAB ANDREY ANDREY LET CO HOS CO HOS REAGENT AUTO MICROSCOP Y ARTERIAL 89871 [facility] [employer], [facility] INC, PUNCTURE 2 POCKET CLOSER POCKET CLOSER WITHDRAWA ANDREY ANDREY L BLOOD CO HOS CO HOS DX RADIOLOGI 38997 [facility] [employer], [facility] INC, C EXAM 2 POCKET CLOSER POCKET CLOSER CHEST 2 ANDREY ANDREY VIEWS CO HOS CO HOS FRONTAL&L ATERAL ECG 24739 [facility], [facility], ROUTINE 2 POCKET CLOSER POCKET CLOSER ECG ANDREY ANDREY W/LEAST CO HOS CO HOS 12 LDS TRCG ONLY W/O I&R COMPREHEN 57911 [facility], [facility] INC, SIVE 2 POCKET CLOSER POCKET CLOSER METABOLIC ANDREY ANDREY PANEL CO HOS CO HOS CULTURE 66047 [facility], [facility] INC, BACTERIAL 2 POCKET CLOSER POCKET CLOSER ANDREY ANDREY QUANTTATI CO HOS CO HOS VE COLONY COUNT URINE INJECTION J2280 [facility], [facility], 2 POCKET CLOSER POCKET CLOSER MOXIFLOXA ANDREY ANDREY KJ 100 CO HOS CO HOS MG GASES 93478 [facility], [facility], BLOOD PH 2 POCKET CLOSER POCKET CLOSER DIRECT ANDREY ANDREY FELA XCPT CO HOS CO HOS PULSE [facility] G0378 [facility], [facility], OBSERVATI 2 POCKET CLOSER POCKET CLOSER ON ANDREY ANDREY SERVICE CO HOS CO HOS PER HOUR CULTURE 38960 [facility], [facility] INC, BCT 2 POCKET CLOSER POCKET CLOSER ISOL&PRSM ANDREY ANDREY PTV ID CO HOS CO HOS ISOLATE EA URINE BLOOD 96729 [facility] [employer], [facility], COUNT 2 POCKET CLOSER POCKET CLOSER COMPLETE ANDREY ANDREY AUTO&AUTO [place] [address] [facility] [employer], [facility], INFUSION 2 POCKET CLOSER POCKET CLOSER THERAPY/P ANDREY ANDREY ROPHYLAXI CO HOS CO HOS S /DX 1ST [place] 1 [place] [address] [facility] [employer], [facility], INFUSION 2 POCKET CLOSER POCKET CLOSER HYDRATION ANDREY ANDREY INITIAL CO HOS CO HOS 31 MIN-[place] [address] [facility] [employer], [facility], INFUSION 2 POCKET CLOSER POCKET CLOSER HYDRATION ANDREY ANDREY EACH CO HOS CO HOS ADDITIONA L HOUR SUSCEPTBI 54386 [facility], [facility], LTY STDY 2 POCKET CLOSER POCKET CLOSER ANTIMICRB ANDREY ANDREY IAL AGNT CO HOS CO HOS AGAR DILUTJ BASIC 77292 [facility], [facility], METABOLIC 2 POCKET CLOSER POCKET CLOSER PANEL ANDREY ANDREY CALCIUM CO HOS CO HOS TOTAL RADIOLOGI 82677 [facility] C EXAM 2 LILIBETH CHEST 2 RADIOLOGY VIEWS ASSOCIAT FRONTAL&L ATERAL CV STRS 81581 [facility] 2 Y Y XERS&/OR [facility] RX CONT ECG TRCG ONLY CV STRS 59724 [facility] TST 2 MEDICAL SAMIRA XERS&/OR SERV RX CONT FOUNDATIO ECG W/O I&R INJECTION [id number] [facility] 2 Y Y [facility] ON 0.1 MG TECHNETIU A9500 [facility] TC-99M 2 Y Y [facility] DX PER STUDY DOSE MYOCARDIA 14298 [facility] SPECT 2 Y Y [facility] STUDIES INJECTION [id number] [place] [address] Y [facility] UP TO 250 MG CV STRS 16922 [facility] PICHARDO TST 2 MEDICAL SAMIRA XERS&/OR SERV RX CONT FOUNDATIO ECG I&[place] [address] [facility] ABDOMEN & 2 Y Y PELVIS [facility] W/O CONTRAST MATERIAL ECG 17977 CRISTIAN CORNEJO CORNEJO CRISTIAN ROUTINE 2 MD ECG CONSULTIN W/LEAST G SRV 12 LDS I&R ONLY SUSCEPTIB 03123 [facility] STDY 2 Y Y KIT [facility] IAL MICRO/AGA R DILUTJ SUSCEPTBI 75167 [facility] STDY 2 Y Y KIT [facility] IAL AGNT AGAR DILUTJ URINLS 99926 [facility] DAVEY DIP 2 NURSE GWE STICK/TAB PRACTITIO LET NER GR REAGNT NON-AUTO MICRSCPY CULTURE [address] [facility] BACTERIAL 2 Y Y [facility] QUANTTATI VE COLONY COUNT URINE CUL BACT [address] [facility]EROBIC 2 [facility] ISOL ECG 20691 CRISTIAN CORNEJO CORNEJO CRISTIAN ROUTINE 2 MD ECG CONSULTIN W/LEAST G SRV 12 LDS I&R ONLY ECG 26732 CRISTIAN CORNEJO CORNEJO CRISTIAN ROUTINE 1 MD ECG CONSULTIN W/LEAST G SRV 12 LDS I&R ONLY ECG 72910 CRISTIAN CORNEJO CORNEJO CRISTIAN ROUTINE 1 MD ECG CONSULTIN W/LEAST G SRV 12 LDS I&R ONLY URNLS DIP 71722 ANDREY BALDERAS 1 CO CO STICK/TAB [facility] LET REAGENT AUTO MICROSCOP Y SUSCEPTBI 60661 ANDREY BALDERAS LTY STDY 1 CO CO ANTIMICRB [facility] IAL AGNT AGAR DILUTJ COMPREHEN 77964 ANDREY BALDERAS SIVE 1 CO CO METABOLIC [facility] PANEL CULTURE 92063 ANDREY BALDERAS BACTERIAL 1 CO [facility] QUANTTAT[facility] VE COLONY COUNT URINE PROTEIN 45603 ANDREY BALDERAS TOTAL 1 CO CO XCPT [facility] REFRACTOM ETRY URINE CULTURE 62315 ANDREY BALDERAS BCT 1 CO VT ISOL&PRSM [facility] PTV ID ISOLATE EA URINE BLOOD 02668 ANDREY BALDERAS COUNT 1 CO CO COMPLETE [facility] AUTO&[place] [id number] ANDREY BALDERAS PHOSPHORU 1 CO CO [facility] INORGANIC COLLECTIO 99996 ANDREY BALDERAS N VENOUS 1 [facility] BLOOD [facility] VENIPUNCT URE BLOOD 32901 ANDREY CHAVARRIA 1 [place] SMEAR [facility] MCRSCP W/[place] [address] ANDREY BALDERAS BLOOD/URI 1 CO CO C ACID [facility] CREATININ 77871 ANDREY BALDERAS E OTHER 1 CO CO SOURCE [facility]ITAL 38965 [facility] DISCHARGE 1 [place] FAMILY DAY MEDICINE MANAGEMEN P T 30 MIN/< DUP-SCAN 25458 [place] MARIO XTR VEINS 1 MEDICAL [place] SERV UNILATERA FOUNDATIO L/LIMITED STUDY ECG 18500 [place] OLIVEIRA ROUTINE 1 MEDICAL NAN ECG SERV W/LEAST FOUNDATIO 12 LDS I&R ONLY RADIOLOGI 05645 [place] DELICIA PEDRO C EXAM 1 MEDICAL CHEST 2 SERV VIEWS FOUNDATIO FRONTAL&L ATERAL RADIOLOGI 61573 ANDREY BALDERAS C 0 CO CO [facility] ON PELVIS 1/2 VIEWS COMPLEMEN 49570 ANDREY Flor TOTAL 0 CO CO HEMOLYTIC [facility] OVA&ZONIA 83130 ANDREY BALDERAS ITES 0 CO CO DIRECT [facility] SMEARS CONCENTRA TION & ID URNLS DIP 21135 ANDREY BALDERAS 0 CO CO STICK/TAB [facility] LET REAGENT AUTO MICROSCOP Y COMPLEMEN 22777 ANDREY BALDERAS T ANTIGEN 0 CO CO [facility]ITAL HOSPITAL COMPONENT RADEX HIP 21649 ANDREY BALDERAS 0 CO CO UNILATERA [facility] L COMPLETE MINIMUM 2 VIEWS SEDIMENTA 02553 ANDREY BALDERAS TION RATE 0 CO CO RBC [facility] NON-AUTOM ATED RENAL 42146 ANDREY BALDERAS FUNCTION 0 CO CO PANEL [facility] BLOOD 73682 ANDREY BALDERAS COUNT 0 CO CO SMEAR [facility] MCRSCP W/MNL DIFRNTL WBC COUNT PROTEIN 27411 ANDREY BALDERAS TOTAL 0 CO CO XCPT [facility] REFRACTOM ETRY URINE COLLECTIO 03017 ANDREY BALDERAS N VENOUS 0 CO CO BLOOD [facility] VENIPUNCT URE C-REACTIV 05524 ANDREY BALDERAS E PROTEIN 0 CO CO [facility] DNA 05329 ANDREY BALDERAS ANTIBODY 0 CO CO [place] TRIBES/DO [facility] [place] [address] ANDREY BALDERAS PARATHORM [address] [facility] CREATINE 15892 ANDREY BALDERAS KINASE 0 [place] [address] ANDREY BALDERAS ALDOLASE 0 CO CO [facility] 25 76675 ANDREY BALDERAS HYDROXY 0 CO CO INCLUDES HOSPITAL HOSPITAL FRACTIONS IF PERFORMED RADIOLOGI 08141 ANDREY BALDERAS C 0 CO CO [facility] ON KNEE 3 VIEWS CREATININ 52203 ANDREY Bolivar OTHER 0 CO CO SOURCE [facility] BLOOD 62264 [facility] COUNT 0 Y Y COMPLETE [facility] AUTO&AUTO DIFRNTL WBC COLLECTIO 02937 [facility] N VENOUS 0 Y Y BLOOD [facility] VENIPUNCT URE COMPREHEN 30963 [facility] UNIVERS SIVE 0 Y Y METABOLIC [facility] PANEL COMPREHEN 29747 [facility] UNIV[facility] SIVE 0 Y Y METABOLIC [facility] PANEL COLLECTIO 29471 [facility]IV[facility] N VENOUS 0 Y Y BLOOD [facility] VENIPUNCT URE BLOOD 01081 [facility] UNIV[facility] COUNT 0 Y Y COMPLETE [facility] AUTO&AUTO DIFRNTL WBC CHROMATOG [address] [facility] SURYA 0 Y Y HEATHER [facility] COLUMN 1 ANALYTE KARLENE OPH BMTRY 12617 PHILIPP RIVERO BRANT PRTL 0 ROBERT COHER INTRFRMTR Y IO LENS PWR KELLEE CATARACT 80366 ROBERT S SEGAL REMOVAL 0 SEGAL ESTEFANIA INSERTION PS OF LENS ANESTHESI 58010 [facility] G A EYE 0 ANESTHESI LENS A ASSOC SURGERY ECG [address] [facility] ROUTINE 0 Y Y ECG [facility] W/LEAST 12 LDS TRCG ONLY W/O I&R Encounters Encounter Start End Date Code Location Performer Type Date HOME [facility], 7 7 HOME INPATIENT HEALTH AGENCY [facility] KRISSY - 7 7 [facility] OUTPATIEN INC T OFFICE 72421 [place] GUILLEN OUTPATI 7 7 MEDICAL T VISIT SERV 25 FOUNDATIO MINUTES [facility] - 7 7 [facility] OUTPATIEN INC T HOME [facility] 7 7 HOME INPATIENT HEALTH AGENCY OFFICE 79107 [place] ARIANE OUTPATIEN 7 7 MEDICAL JR T NEW 45 SERV MINUTES [place]OUNDAT[facility] N OFFICE 94910 [place] HERBERT OUTPATIEN 7 7 MEDICAL T VISIT SERV 40 FOUNDATIO MINUTES N HOME [facility], 7 7 HOME INPATIENT HEALTH AGENCY OFFICE 37525 [place] HERBERT OUTPATIEN 7 7 MEDICAL T VISIT SERV 40 FOUNDATIO MINUTES [facility] UK - 7 7 HEALTHCAR OUTPATIEN E [facility], 7 7 HOME INPATIENT HEALTH AGENCY OFFICE 90542 [place] GUILLEN PERRY OUTPATIEN 6 6 MEDICAL T VISIT SERV 25 FOUNDATIO MINUTES OFFICE 29291 [facility] HODGE MAD OUTPATIEN 6 6 PHYSICIAN T VISIT S GROUP 10 [facility] KRISSY - 6 6 [facility] OUTPATIEN INC T OFFICE 79713 [facility] HODGE MAD OUTPATIEN 6 6 PHYSICIAN T VISIT S GROUP 10 MINUTES [facility] KRISSY - 6 6 [facility] H[facility] OUTPATIEN INC [facility] KRISSY - [address] [facility] T OFFICE 67650 [facility] HODGE MAD OUTPATIEN 6 6 PHYSICIAN T VISIT S GROUP 15 MINUTES OFFICE 57998 [facility] HODGE MAD OUTPATIEN 6 6 PHYSICIAN T NEW 30 S GROUP [facility] KRISSY - 6 6 MEM [facility] OUTPATIEN INC [facility] KRISSY - 6 6 [facility] OUTPATIEN INC T OFFICE 07915 [place] HER[place] KRI OUTPATIEN 6 6 MEDICAL T VISIT SERV 25 FOUNDATIO MINUTES [facility] UNIVERSIT - 6 6 Y OUTPATIEN [facility], 6 6 HOME INPATIENT HEALTH AGENCY EMERGENCY 70262 [facility] DEPT 6 6 HARIS VISIT EMERGENCY HIGH PHYS SEVERITY& THREAT FUNC HOME [facility], 6 6 HOME INPATIENT HEALTH AGENCY [facility] - 6 6 [facility] 72096 [facility] ARGUETA OUTPATIEN 6 6 MEDICAL T VISIT SERV 40 FOUNDATIO MINUTES N OFFICE 36665 [place] JAQUEZ OUTPATIEN 6 6 VALLEY HOL T VISIT INTERNAL 15 MEDI MINUTES HOSPITAL KRISSY - OTHER 6 6 MEM HOS[facility] INC HOME [facility], 6 6 HOME INPATIENT HEALTH AGENCY OFFICE 14236 [place] YOVANY OUTPATIEN 6 6 VALLEY NICOLA T VISIT INTERNAL 15 MEDI MINUTES OFFICE 54950 MINH AMADOR OUTPATIEN 6 6 MEDICAL T VISIT SERV 25 FOUNDATIO MINUTES [facility] KRISSY - OTHER 6 6 MEM HOS[facility] INC OFFICE 94694 [place] TAI OUTPATIEN 6 6 YONY KRIS T NEW 30 MINUTES HOME [facility], 6 6 HOME INPATIENT HEALTH [facility] KRISSY - [address] [facility] T OFFICE 92636 [place] EM[facility]ALD [facility] 6 6 SOMERSET TIMOTHY T VISIT INTERNAL 25 MED MINUTES HOSPITAL UNIVERSIT - 5 5 Y [facility] T OFFICE 50318 MINH ARGUETA OUTPATIEN 5 5 MEDICAL T VISIT SERV 40 FOUNDATIO MINUTES N EMERGENCY 13236 TONIO JACKSON DEPT 5 5 PHYSICIAN U CAROL VISIT S, PLLC HIGH SEVERITY& THREAT FUNCJ EMERGENCY 69685 KRISSY 5 5 [facility] HIGH/URGE NT SEVERITY [facility]OSPITAL KRISSY - 5 5 [facility] OUTPATIEN INC T HOME [facility], 5 5 HOME INPATIENT HEALTH AGENCY OFFICE 09827 [facility] TOD OUTPATIEN 5 5 PHYSICIAN T VISIT S GROUP 15 MINUTES HOME [facility], 5 5 HOME INPATIENT HEALTH AGENCY OFFICE 97470 [place] BESSON OUTPATIEN 5 5 VALLEY TIMOTHY T VISIT INTERNAL 15 MED MINUTES HOSPITAL KRISSY - 5 5 [facility] OUTPATIEN INC T OFFICE 60795 [facility] SOPHIE TOD OUTPATIEN 5 5 PHYSICIAN T NEW 30 S GROUP MINUTES HOSPITAL KRISSY - 5 5 [facility] OUTPATIEN INC T HOSPITAL KRISSY - 5 5 [facility] OUTPATIEN INC T OFFICE 02700 MINH AMADOR OUTPATIEN 5 5 MEDICAL T VISIT SERV 25 FOUNDATIO MINUTES N OFFICE 81562 [place] JAQUEZ OUTPATIEN 5 5 VALLEY HOL T VISIT INTERNAL 15 MEDI MINUTES HOSPITAL KRISSY - OTHER 5 5 MEM [facility]OS[facility] INC OFFICE 69551 [place] JAQUEZ OUTPATIEN 5 5 VALLEY HOL T VISIT INTERNAL 25 MEDI MINUTES HOME [facility], 5 5 HOME INPATIENT HEALTH AGENCY [facility], 5 5 DIST OTHER HEALTH DEPT [facility] H[facility]PITAL KRISSY - 5 5 [facility] OUTPATIEN INC T HOME [facility], 5 5 DIST OTHER HEALTH DEPT [facility] HOME [facility], 5 5 HOME INPATIENT HEALTH AGENCY [facility], 5 5 DIST OTHER HEALTH DEPT [facility] OFFICE 58640 MINH GODINEZ KRI OUTPATIEN 5 5 MEDICAL T VISIT SERV 40 FOUNDATIO MINUTES N EMERGENCY 75645 KRISSY 5 5 MEM HOSP DEPARTMEN INC T VISIT HIGH/URGE NT SEVERITY HOSPITAL KRISSY - 5 5 [facility] OUTPATIEN INC T HOME [facility], 5 5 DIST OTHER HEALTH DEPT [facility] HOME [facility] HE[facility], 5 5 DIST OTHER HEALTH DEPT [facility] HOME [facility] HEALTH, 5 5 HOME OUTPATIEN HEALTH T AGENCY OFFICE 98274 [place] BESSON OUTPATIEN 5 5 VALLEY TIMOTHY T VISIT INTERNAL 15 MED MINUTES HOME [facility], 5 5 DIST OTHER HEALTH DEPT [facility], 5 5 DIST OTHER HEALTH DEPT [facility] OFFICE 71772 [place] GUILLEN PERRY OUTPATIEN 5 5 MEDICAL T VISIT SERV 25 FOUNDATIO MINUTES N HOME [facility] HE[facility], 5 5 DIST OTHER HEALTH DEPT [facility], 5 5 HOME OUTPATIEN HEALTH T AGENCY OFFICE 81966 [place] HERBERT SIMEONI OUTPATIEN 5 5 MEDICAL T VISIT SERV 40 FOUNDATIO MINUTES N HOME [facility], 5 5 DIST OTHER HEALTH DEPT [facility], 4 4 HOME OUTPATIEN HEALTH T AGENCY [place] [facility], 4 4 DIST OTHER HEALTH DEPT [facility], 4 4 DIST OTHER HEALTH DEPT [facility] OFFICE 58127 [place] HERBERT KRI OUTPATIEN 4 4 MEDICAL T VISIT SERV 15 FOUNDATIO MINUTES N [place] [facility], 4 4 HOME OUTPATIEN HEALTH T [facility] KRISSY - 4 4 MEM HOS[facility] OUTPATIEN INC T OFFICE 80545 [place] GUILLEN PERRY OUTPATIEN 4 4 MEDICAL T VISIT SERV 25 FOUNDATIO MINUTES [facility] KRISSY - 4 4 [facility] OUTPATIEN INC T HOME [facility], 4 4 DIST OTHER HEALTH DEPT [employer]PORATE [employer] [facility], 4 4 DIST OTHER HEALTH DEPT CORPORATE [employer] [facility], 4 4 HOME OUTPATIEN HEALTH T AGENCY [facility], 4 4 DIST OTHER HEALTH DEPT [employer]POR[employer] OFFICE 68265 [place] WILMER AMADOR OUTPATIEN 4 4 MEDICAL T VISIT SERV 25 FOUNDATIO MINUTES OFFICE 97300 [place] HERB[place] ARGUETA OUTPATIEN 4 4 MEDICAL T VISIT SERV FOUNDATIO MINUTES HOSPITAL KRISSY - 4 4 [facility] OUTPATIEN INC T HOME [facility], 4 4 DIST OTHER HEALTH DEPT [employer]PORATE [employer] [facility], 4 4 DIST OTHER HEALTH DEPT CORPORATE [employer] [facility], 4 4 HOME OUTPATIEN HEALTH T AGENCY [facility], 4 4 DIST OTHER HEALTH DEPT CORPORATE [employer] OFFICE 66869 [place] HERBERT ARGUETA OUTPATIEN 4 4 MEDICAL T VISIT SERV 40 FOUNDATIO MINUTES HOME [facility], 4 4 DIST OTHER HEALTH DEPT CORPORATE [employer] OFFICE 03740 MINH AMADOR OUTPATIEN 4 4 MEDICAL T VISIT SERV 25 FOUNDATIO MINUTES CR[facility]ICAL [facility], ACCESS 4 4 [facility] H[facility] HOME [facility], 4 4 DIST OTHER HEALTH DEPT CORPORATE [employer] [facility], 4 4 HOME OUTPATIEN HEALTH T AGENCY [facility], 4 4 DIST OTHER HEALTH DEPT CORPORATE [employer] OFFICE 25947 [place] EMERALD OUTPATIEN 4 4 VALLEY TIMOTHY T VISIT INTERNAL 15 MED MINUTES HOME [facility], 4 4 HOME OUTPATI HEALTH T AGENCY [facility], 4 4 DIST OTHER HEALTH DEPT [facility] H[facility]PITAL UNIVERSIT - 3 3 Y OUTPATI HOSPITAL T OFFICE 52914 MINH AMADOR OUTPATIEN 3 3 MEDICAL T VISIT SERV 25 FOUNDATIO MINUTES CRITICAL [facility] INC, ACCESS 3 3 [facility] CR[facility]ICAL [facility], ACCESS 3 3 [facility] HOS HOME [facility], 3 3 DIST OTHER HEALTH DEPT CORPORATE [employer] OFFICE 32979 [place] HEBER OUTPATIEN 3 3 MEDICAL EJ T NEW 45 SERV MINUTES FOUNDATIO HOME [email or web address], 3 3 DIST OTHER HEALTH DEPT [facility] CRITICAL [facility], ACCESS 3 3 [facility] HOS [facility], 3 3 [facility] OFF[facility] 71105 [place] HERBERT ARGUETA OUTPATIEN 3 3 MEDICAL T VISIT SERV 40 FOUNDATIO MINUTES HOME [facility] [employer] [facility], 3 3 DIST OTHER HEALTH DEPT CORPORATE [employer] OFFICE 42319 MINH AMADOR OUTPATIEN 3 3 MEDICAL T VISIT SERV 25 FOUNDATIO MINUTES HOME [email or web address], 3 3 DIST OTHER HEALTH DEPT CORPORATE [employer] CRITICAL [facility], ACCESS 3 3 [facility] CRITICAL [facility], ACCESS 3 3 [facility] CRITICAL [facility], ACCESS 3 3 [facility] HOS [facility], 3 3 DIST OTHER HEALTH DEPT CORPORATE [employer] OFFICE 87101 [place] BESSON OUTPATIEN 3 3 [facility] T VISIT INTERNAL 15 MED MINUTES HOME [facility], 3 3 [facility] T AGENCY [facility], 3 3 DIST OTHER [facility]ALTH [facility] OFFICE 67215 ALLRAN JR YANG JR OUTPATIEN 3 3 SAMIRA HOGAN T VISIT 15 MINUTES OFFICE 67261 CRISTIAN MURILLO CAR OUTPATIEN 3 3 MD T VISIT CONSULTIN 25 G SERV MINUTES OFFICE 15307 [place] BESSON OUTPATIEN 3 3 [facility] T VISIT INTERNAL 25 MED MINUTES CRITICAL [facility], ACCESS 3 3 [facility] 3 3 [facility] CRITICAL [facility], ACCESS 3 3 [facility] - 3 3 [facility] 3 3 [facility] 3 3 DIST OTHER HEALTH [facility] [place] - 3 3 [facility] [place] - 3 3 [facility] 3 3 DIST OTHER HEALTH DEPT [facility]PITAL KRISSY - 3 3 [facility] OUTPATIEN [facility] T OFFICE 79602 [place] BESSON OUTPATIEN 3 3 [facility] T VISIT INTERNAL 15 MED MINUTES [facility]OSP[facility] [place] - 3 3 [facility] [place] - 3 3 [facility], 3 3 DIST OTHER HEALTH [facility] [employer] OFFICE 81538 CELIA YANG JR OUTPATIEN 3 3 SAMIRA SAMIRA T VISIT 15 MINUTES HOME [facility], 3 3 DIST OTHER HEALTH DEPT CORPORATE [employer] [facility], 3 3 HOME OUTPATIEN HEALTH T AGENCY CRITICAL [facility], ACCESS 3 3 [facility], 3 3 DIST OTHER HEALTH DEPT CORPORATE [employer] CRITICAL [facility], ACCESS 3 3 [facility] HOS OFFICE 44566 MINH AMADOR OUTPATIEN 3 3 MEDICAL T VISIT SERV 25 FOUNDATIO MINUTES OFFICE 32104 CELIA YANG JR OUTPATIEN 3 3 SAMIRA SAMIRA T VISIT 15 MINUTES CRITICAL [facility] ACCESS 3 3 [facility], 3 3 DIST OTHER HEALTH DEPT [facility] CRITICAL [facility] INC, ACCESS 3 3 [facility] HOS CRITICAL [facility], ACCESS 3 3 [facility] 3 3 HOME OUTPATI HEALTH T AGENCY [facility]OSP[facility] - 3 3 [facility] KR[facility]SY - 3 3 [facility] OUTPATIEN INC T HOME [facility], 3 3 DIST OTHER HEALTH DEPT [facility] UNIVERSIT - 3 3 [facility] T OFF[facility] 64609 MINH ARGUETA OUTPATIEN 2 2 MEDICAL T VISIT SERV 25 FOUNDATIO MINUTES HOME [facility], 2 2 HOME OUTPATIEN HEALTH T AGENCY OFFICE 33697 ALLRAN JR ALLRAN JR OUTPATIEN 2 2 SAMIRA SAMIRA T NEW 30 MINUTES HOME [facility], 2 2 DIST OTHER HEALTH DEPT [facility], 2 2 HOME OUTPATIEN HEALTH T AGENCY CRITICAL [facility], ACCESS 2 2 [facility]OS CRITICAL [facility], ACCESS 2 2 [facility] CRITICAL [facility], ACCESS 2 2 [facility] CRITICAL [facility], ACCESS 2 2 [facility]PITAL UNIVERSIT - 2 2 Y [facility] OFFICE 77582 [place] LUZMARIA OUTPATIEN 2 2 MEDICAL XOCHITL T VISIT SERV 15 FOUNDATIO MINUTES HOME [facility], 2 2 DIST OTHER HEALTH DEPT [facility] UNIVERSIT - 2 2 [facility] T OFFICE 64818 [place] HERBERT ISMEONI OUTPATIEN 2 2 MEDICAL T VISIT SERV 25 FOUNDATIO MINUTES HOME [facility], 2 2 [facility] T AGENCY OFFICE 86599 [place] WILMER AMADOR OUTPATIEN 2 2 MEDICAL T VISIT SERV 25 FOUNDATIO MINUTES HOME [facility], 2 2 DIST OTHER HEALTH DEPT [facility] CRITICAL [facility] INC, ACCESS 2 2 [facility] EMERGENCY 50239 [facility], 2 2 POCKET CLOSER DEPARTMEN ANDREY T VISIT CO HOS HIGH/URGE NT SEVERITY HOME [facility], 2 2 HOME OUTPATIEN HEALTH T AGENCY [facility], 2 2 DIST OTHER HEALTH DEPT [facility] EMERGENCY 27826 [facility], DEPT 2 2 POCKET CLOSER VISIT ANDREY HIGH CO HOS SEVERITY& [facility], - 2 2 POCKET CLOSER OUTPATIEN ANDREY T CO HOS EMERGENCY 54235 [facility] KEITAO 2 2 [facility] T VISIT MODERATE SEVERITY HOME [facility], 2 2 DIST OTHER HEALTH DEPT [facility] MHC INC, - 2 2 POCKET CLOSER OUTPATIEN ANDREY T CO HOS OFFICE 44743 [facility] OUTPATIEN 2 2 [place] FAMILY CAROL T VISIT MEDICINE 25 P MINUTES OFFICE 37408 LAUSE FED LAUSE FED OUTPATIEN 2 2 T NEW 20 MINUTES HOME [facility], 2 2 DIST OTHER HEALTH DEPT [facility], 2 2 DIST OTHER HEALTH DEPT [facility] MHC INC, - 2 2 POCKET CLOSER INPATIENT ANDREY CO HOS EMERGENCY 85632 [facility], 2 2 POCKET CLOSER [facility] ANDREY T VISIT CO HOS HIGH/URGE NT [facility], - 2 2 POCKET CLOSER OUTPATIEN ANDREY T CO HOS EMERGENCY 84495 ANDRE[facility] HERRERA 2 2 [facility] T VISIT MODERATE SEVERITY OFFICE 00310 [place] ENDEAN OUTPATIEN 2 2 MEDICAL XOCHITL T NEW [address] [facility] UNIVERSIT - 2 2 [facility] 2 [facility] 70882 [facility] OUTPATIEN 2 2 [place] FAMILY T VISIT MEDICINE 15 P MINUTES OFFICE 62013 [facility] D[facility] OUTPATIEN 2 2 NURSE GWE T NEW 45 PRACTITIO MINUTES [facility] UNIVERSIT - [address] [facility] MHC INC, - 1 1 POCKET CLOSER INPATIENT [facility]REY [facility] ANDREY - [address] [facility] UNIVERSIT - 1 1 Y INPATIENT HOSPITAL OFFICE 45541 [place] [facility] 1 1 MEDICAL T VISIT SERV 40 FOUNDATIO [facility] ANDREY - 0 0 [facility] UNIVERSIT - 0 0 Y [facility] T OFFICE 76693 [facility] 0 [place] FAM[facility] CAROL T VISIT MEDICINE 15 P MINUTES [facility] UNIVERSIT - 0 0 Y [facility] T OFFICE 04768 [facility] OUTPATIEN 0 0 MARGARITA T VISIT 15 MINUTES OFFICE 67949 [facility] OUTPATIEN 0 0 MARGARITA T VISIT 15 MINUTES OFFICE 44271 [facility] OUTPATIEN 0 0 MARGARITA T VISIT 15 MINUTES [facility] UN[facility] - 0 0 Y [facility]
--- OUTSIDE RECORDS SUMMARY | 2017-09-02 14:41 | External Medical Summary Rpt | CCD ---
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 Unavailable Unavailable [facility] TAI KRIS, TAI Unavailable Unavailable [...] [facility] ANEST[facility] OF Unavailable Unavailable [facility], [facility] ARIANE JR, ARIANE Unavailable Unavailable JR COOK LILIBETH, COOK LILIBETH Unavailable Unavailable KENNY ANTWAN, Unavailable Unavailable KENNY ANTWAN [facility] Unavailable Unavailable [facility], [facility] Un[facility] Unavailable [facility], [facility] ZIMMER FREDY, ZIMMER FREDY Unavailable Unavailable ENDEAN XOCHITL, ENDEAN [...] Unavailable SONY PRICE, Unavailable Unavailable SONY PRICE [facility] Unavailable Unavailable CARE, [facility] Unavailable Unavailable CARE, [facility] Unavailable Unavailable INC, [facility] Un[facility]available HOSPITAL P, [facility] P WALKER RADHA, WALKER RADHA Unavailable Unavailable [facility], Unavailable Unavailable [facility] DAVYE GWE, DAVEY Unavailable Unavailable GWE HOUSMAN KAMILA, HOUSMAN Unavailable Unavailable KAMILA [facility] Unavailable Unavailable CORPORATION, [facility] Unavailable Unavailable [facility]PORATION, [facility] Unavailable Unavailable CORPORATION, [facility] Unavailable Unavailable GROUP PS, [facility] Unavailable Unavailable IM[facility]ING [facility], [facility] KERN CAR, KERN CAR [...] PEDRO MAJORS G, MAJORS G Unavailable Unavailable [facility] Unavailable Unavailable SERVICES, [facility] Unavailable Unavailable ASSOCIAT, [facility] MCKEMIE KAMILA, Unavailable Unavailable MCKEMIE JR KAMILA [facility], Unavailable Unavailable [facility], [facility] AVILES KAMILA, AVILES KAMILA Unavailable Unavailable RONY CAM, RONY Unavailable Unavailable [facility], Unavailable Unavailable [facility] Unavailable Unavailable AMBULANCE SE, [facility] Unavailable [facility]available AMBULANCE SE, [facility] CRISTIAN CORNEJO MD Unavailable Unavailable [...] EQUIPME SOTINGEANU CAROL, Unavailable Unavailable SOTINGEANU CAROL [facility] Unavailable Unavailable EMERGENCY PHYS, [facility], Unavailable [facility]available [facility] Unavailable Unavailable CLINIC, [facility] Unavailable Unavailable H[facility]PITALS, [facility] Unavailable Unavailable SUPPL[facility], [facility] Unavailable Unavailable [facility], [facility] Unavailable Unavailable MEDICINE , [facility], Unavailable Unavailable [facility] # Unavailable Unavailable [id number], [facility] # [id number] GUILLEN, GUILLEN Unavailable Unavailable GUILLEN PERRY, GUILLEN PERRY Unavailable Unavailable [facility] Unavailable Unavailable 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, [facility] 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 [facility] Unavailable Unavailable AGENCY, [facility] MARIO SANTA, MARIO Unavailable Unavailable [facility] Purpose Continuity of Care Document - 08-29-2010 through 2016 Problems Code Diagnosis DOS Provider Status N189 CHRONIC 08-25-2017 [facility] UNSPECIFIED K580 IRRITABLE 07-25-2017 [facility] BOWEL HEALTH SYNDROME AGENCY WITH DIARRHEA M1990 UNSPECIFIED 07-25-2017 [facility] HEALTH OSTEOARTHRI AGENCY TIS UNSPECIFIED SITE N8110 CYSTOCELE 07-25-2017 [facility] UNSPECIFIED HEALTH AGENCY R159 FULL 07-25-2017 [facility] INCONTINENC HEALTH E OF FECES AGENCY R3981 FUNCTIONAL 07-25-2017 [facility] URINARY HEALTH INCONTINENC AGENCY E I129 HYPERTENSIV 07-16-2017 [facility] E CKD SERV W/STAGE 1-4 FOUNDATION CKD OR UNS CKD M329 SYSTEMIC 07-16-2017 [facility] LUPUS SERV ERYTHEMATOS FOUNDATION US UNSPECIFIED M810 AGE-RELATED 07-16-2017 [facility] OSTEOPOROSI FOUNDATION S W/O CURRNT PATH FX N039 CHRONIC 07-16-2017 [facility] NEPHRITIC SERV SYND W/UNS FOUNDATION MORPHOLOGIC CHANGES N183 CHRONIC 07-16-2017 [facility] KIDNEY [facility] DISEASE FOUNDATION STAGE 3 MODERATE N250 RENAL 07-16-2017 [facility] OSTEODYSTRO SERV PHY [facility]OUNDATION R809 PROTEINURIA 07-16-2017 [facility] UNSPECIFIED FOUNDATION R8290 UNSPECIFIED 07-16-2017 [facility] ABNORMAL [facility] FINDINGS IN INC URINE M069 RHEUMATOID 06-02-2017 [facility] ARTHRITIS [employer] UNSPECIFIED M3210 SYSTEMIC 06-02-2017 [facility] ERYTHEMATOS US ORGAN/SYS INVLV UNS M4000 POSTURAL 06-02-2017 [facility] KYPH[facility]IS [facility]POR[facility] SITE UNSPECIFIED M549 DORSALGIA 05-29-2017 [facility] R079 CHEST PAIN 05-29-2017 [place] [facility]PEC[facility] IMAGING ASS R091 PLEURISY 05-29-2017 [facility] INC R69 ILLNESS 05-15-2017 [facility] UNSPECIFIED TRANSPORTAT ION SER O86054 UNSPECIFIED 04-30-[address] [facility] ASTIGMATISM FOUNDATION BILATERAL H524 PRESBYOPIA 04-30-[address] [facility] FOUNDATION H12839 OTHER LONG 04-30-2017 [facility]M SERV CURRENT FOUNDATION DRUG THERAPY Z961 PRESENCE OF 04-30-[address] [facility] SERV INTRAOCULAR FOUNDATION LENS G8929 OTHER 04-29-2017 [facility] CHRONIC SERV PAIN FOUNDATION L853 XEROSIS 04-29-2017 [facility] CUTIS SERV [facility] M545 LOW BACK 04-29-2017 [facility] R52 PAIN 04-29-2017 [facility] UNSPECIFIED SERV FOUNDATION R531 WEAKNESS 04-29-2017 [facility] E039 HYPOTHYROID 02-19-2017 [facility]ICIANS UNSPECIFIED LA M129 ARTHROPATHY 02-19-2017 [facility] UNSPECIFIED LA M3214 GLOMERULAR 02-19-2017 [facility] DISEASE IN PHYSICIANS SYS LUPUS LA ERYTHEMATOS US N390 URINARY 10-28-2016 [facility] TRACT SERV INFECTION FOUNDATION SITE NOT SPECIFIED [id number] NONDSPL FX 10-16-2016 [place] [facility] METATARSAL IMAGING ASS RT FT SUBSQT FX RTN [id number] UNS 10-16-2016 [facility] FRACTURE RT PHYSICIANS FOOT GROUP SUBSQT ENC FX ROUTINE HEAL [id number] DISPLACED 09-24-2016 [facility] 3RD TECHNOLOGIE METATARSAL S INC RT FT INIT CLOS FX [id number] NONDSPL FX 09-24-2016 [facility] 3RD [facility] METATARSAL INC RT FT INIT ENC CLOS FX [id number] DISPLACED 09-24-2016 [facility] FX 4TH TECHNOLOGIE METATARSAL S INC RT FT INIT CLOS FX [id number] NONDSPL FX 09-24-2016 [facility] 4TH [facility] METATARSAL INC RT FT INIT ENC CLOS FX [id number] NONDSPL FX 09-04-2016 [place] [facility] METATARSAL IMAGING ASS RT FT SUBSQT FX RTN [id number] PAIN IN 08-26-2016 [place] RIGHT FOOT MEDICAL IMAGING ASS Z1231 ENCOUNTER 08-20-2016 [place] SCREENING MEDICAL MAMMO MALIG IMAGING ASS NEOPLASM BREAST K449 DIAPHRAGMAT 07-17-2016 [facility] IC HERNIA RADIOLOGY W/O OBSTRUCTION OR GANGRENE R197 DIARRHEA 07-17-2016 [facility] UNSPECIFIED N EMERGENCY PHYS M359 SYSTEMIC 04-30-2016 [facility] INVOLVEMENT SERV CONNECTIVE FOUNDATION TISSUE UNS Z5181 ENCOUNTER 04-30-2016 [facility] FOR SERV THERAPEUTIC FOUNDATION DRUG LEVEL MONITORING B351 TINEA 04-16-2016 [facility] UNGUIUM F33980 PAIN IN 04-16-2016 [facility] LEFT FOOT H109 UNSPECIFIED 04-03-2016 [facility] [place] CONJUNCTIVI INTERNAL TIS MEDI L930 DISCOID 02-21-2016 [facility]US PHYSICIANS ERYTHEMATOS LA US J069 ACUTE UPPER 01-24-2016 [facility] [place] RESPIRATORY INTERNAL INFECTION MEDI UNSPECIFIED A499 BACTERIAL 01-18-2016 [facility] INFECTION SERV UNSPECIFIED FOUNDATION K219 GASTRO-ESOP 12-20-2015 [facility] H REFLUX ANESTH OF DISEASE THE BLUE WITHOUT ESOPHAGITIS M2570 OSTEOPHYTE 12-07-2015 [facility] UNSPECIFIED JOINT R799 ABNORMAL 11-27-2015 [facility] FINDING OF [facility] BLOOD INC CHEMISTRY UNSPECIFIED R0609 OTHER FORMS 11-21-2015 [facility] OF DYSPNEA [place] INTERNAL MED K210 GASTRO-ESOP 10-31-2015 [facility] HAGEAL SERV REFLUX FOUNDATION DISEASE W/ ESOPHAGITIS R1310 DYSPHAGIA 10-11-2015 [facility] UNSPECIFIED ANESTH OF THE BLUE E860 DEHYDRATION 10-02-2015 [facility] R112 NAUSEA WITH 10-02-2015 [facility] VOMITING PHYSICIANS, UNSPECIFIED PLLC K589 IRRITABLE 09-18-2015 [facility] BOWEL PHYSICIANS SYNDROME GROUP WITHOUT DIARRHEA M8580 OT SPEC 08-30-2015 [facility] D/O BONE PHYSICIANS DENSITY LA STRUCTURE UNS SITE Z23 ENCOUNTER 08-29-2015 [facility] FOR VALLEY IMMUNIZATIO INTERNAL N MED R109 UNSPECIFIED 08-24-2015 [place] ABDOMINAL MEDICAL PAIN IMAGING ASS R9431 ABNORMAL 08-16-2015 [facility] P N959 UNSPECIFIED 08-15-2015 [facility] INC PERIMENOPAU SYDNI DISORDER U57219 ENCOUNTER 08-15-2015 [place] FOR MEDICAL SCREENING IMAGING ASS FOR OSTEOPOROSI S Z780 ASYMPTOMATI 08-15-2015 [place] C MEDICAL MENOPAUSAL IMAGING ASS STATE Z803 FAMILY 08-15-2015 [place] HISTORY OF MEDICAL MALIGNANT IMAGING ASS NEOPLASM OF BREAST 3829 UNSPECIFIED 08-07-2015 [facility] OTITIS [facility] MEDIA INTERNAL MEDI 96888 ESOPHAGEAL 08-07-2015 [facility] REFLUX VALLEY INTERNAL MEDI 5853 CHRONIC 07-28-2015 [facility] K[facility]NEY [facility] DISEASE INC STAGE III (MODERATE) 5990 URINARY 07-28-2015 [facility] INFECTION INC SITE NOT SPECIFIED 19776 07-28-2015 [facility] ION SER 5641 IRRITABLE 07-25-2015 [facility] SYNDROME AGENCY 69126 UNS PROLAPS 07-25-2015 [facility] W/O MENTION AGENCY UTERN PROLAPS 08720 UNSPECIFIED 07-25-2015 [facility] HEALTH ARTHROPATHY AGENCY SITE UNSPECIFIED 7242 LUMBAGO 07-25-2015 [facility] INTERNAL MEDI 61278 FULL 07-25-2015 [facility] INCONTINENC HEALTH E OF FECES AGENCY 32765 UNSPECIFIED 07-25-2015 [facility] URINARY HEALTH INCONTINENC AGENCY E V7610 UNSPECIFIED 07-25-2015 [facility] [place]AST [facility] SCREENING INTERNAL MEDI V8281 SPECIAL 07-25-2015 [facility] SCREENING VALLEY FOR INTERNAL OSTEOPOROSI MEDI S 7100 SYSTEMIC 07-11-2015 [facility] LUPUS [place] [place] [address] OSTEOARTHRO 07-11-2015 [facility] S UNSPEC HEALTH DEPT WHETHER SOD STRIPPER GEN/LOC UNSPEC SITE 2449 UNSPECIFIED 05-31-2015 [facility] HYPOTHYROID [place] ISM 97971 OTHER 04-25-2015 [facility] CHRONIC SERV PAIN FOUNDATION 08628 UNSPECIFIED 04-19-2015 [facility] P [place] 7802 SYNCOPE AND 04-19-2015 [place] [address] NAUSEA 04-19-2015 [facility] [place] [facility] [place] [address] DIAB W/O 03-30-2015 [facility] TYPE STATES II/UNS NOT MEDICAL STATED SUPPLY UNCNTRL 7140 RHEUMATOID 03-01-2015 [place] [address] UNSPECIFIED 02-22-2015 [facility] ARTHROPATHY INTERNAL MULTIPLE MED SITES 58655 KYPHOSIS 02-06-2015 [facility] POSTURAL 18895 HTN CKD UNS 01-09-2015 [facility] W/CKD [...] 10-12-2014 [facility] FED SOFT TISSUES OF LIMB 11462 OBSTRUCTIVE 09-16-2014 [facility] APNEA MEDICAL EQUIPME 99774 OTHER 09-16-2014 [facility] DYSPNEA AND HOME MEDICAL RESPIRATORY EQUIPME ABNORMALITI ES 4011 ESSENTIAL 08-15-2014 [facility] HYPERTENSIO SERV N, BENIGN FOUNDATION 7910 PROTEINURIA 08-15-2014 [facility] 7919 OTHER 08-15-2014 [facility] NONSPECIFIC [facility] FINDING INC EXAMINATION OF URINE 54559 DYSPHAGIA 08-11-2014 [facility] UNSPECIFIED [facility] HOSP INC 33845 AFTER-CATAR 07-28-2014 [facility] VISION 03264 NEPHRITIS&N 05-31-2014 [facility] EPHROPATHY- SERV OTH SPEC FOUNDATIO PATH LES DZ CE 7813 LACK OF 03-25-2014 [facility] COORDINATIO HOME N MEDICAL EQUIPME 66842 ANEMIA OF 01-20-2014 [facility] OTHER SERV CHRONIC FOUNDATIO DISEASE 2724 OTHER AND 12-07-2013 [facility] UNSPECIFIED VALLEY INTERNAL HYPERLIPIDE MED BRIDGETTE 3814 NONSUPPRATV 12-07-2013 [facility] OTITIS [facility] MEDIA NOT INTERNAL SPEC MED ACUT/CHRON 4019 UNSPECIFIED 12-07-2013 [facility] ESSENTIAL [facility] HYPERTENSIO INTERNAL N MED 4720 CHRONIC 12-07-2013 [facility] RHINITIS VAL[facility] INTERNAL MED 7851 PALPITATION 10-20-2013 [facility] [place] [facility] 35494 HYPERPARATH 10-13-2013 [facility] YROIDISM [facility] UNSPECIFIED [facility] 2689 UNSPECIFIED 10-13-2013 [facility] VITAMIN D [facility] [place] 8[address]48 ANEMIA IN 10-13-2013 [facility] CHRONIC [facility] KIDNEY [facility] CO DISEASE HOS 3384 CHRONIC 09-27-2013 [facility] PAIN SERV SYNDROME FOUNDATIO 7226 DEGENERATIO 09-27-2013 [place] [facility] N SERV INTERVERTEB FOUNDATIO RAL DISC SITE UNSPEC 54564 OTHER 06-30-2013 [facility] ABNORMAL [facility] FINDING [facility] L EXAM BREAST 55553 LUMP OR 06-25-2013 [place] [facility] IN RADIOLOGY BREAST ASSOCIAT 1103 DERMATOPHYT 06-07-2013 [facility] OSIS OF [place] GROIN AND INTERNAL PERIANAL MED AREA 4555 EXTERNAL 05-05-2013 [facility] HEMORRHOIDS SAMIRA WITH OTHER COMPLICATIO N 2722 MIXED 05-04-2013 CRISTIAN CORNEJO HYPERLIPIDE BRIDGETTE CONSULTING SERV 73540 CORONARY 05-04-2013 CRISTIAN HAYNES MD OS[facility] [place] CONSULTING CORONARY SERV ARTERY V7281 PRE-OPERATI 05-04-2013 CRISTIAN BARAJAS MD CARDIOVASCU CONSULTING LAR SERV EXAMINATION 08554 DYSFNCT 04-23-2013 [facility] W/SLEEP HOSPITAL STGES/AROUS AL FRM SLEEP 43450 HYPOXEMIA 04-23-2013 [facility] V8533 BODY MASS 04-23-2013 [facility] [id number] HOSPITAL ADULT 5859 CHRONIC 04-19-2013 [facility] KIDNEY [facility] DISEASE [facility] UNSPECIFIED HOS 96355 UNSPECIFIED 04-16-2013 [facility] OSTEOPOROSI S 77444 CHEST PAIN 04-16-2013 [facility] UNSPECIFIED CARDIOLOGY CLINIC 4160 PRIMARY 04-14-2013 [facility] PULMONARY [facility] HYPERTENSIO [facility] N 67990 PRECORDIAL 04-14-2013 [facility] 50325 OTHER 04-14-2013 [facility] [place] NONSPECIFIC RADIOLOGY ABNORMAL FINDING OF LUNG FIELD 60406 SHORTNESS 03-24-2013 [facility] 7823 EDEMA 03-09-2013 CRISTIAN CORNEJO MD CONSULTING SRV 76891 OTHER CHEST 03-01-2013 [facility] PAIN [place] INTERNAL MED 86389 OBESITY, 02-27-2013 [facility] UNSPECIFIED [facility]ERGENCY SERVICES 12940 HTN [facility] 02-26-2013 [facility] KID DZ STAGE I-IV/UNS 4556 UNSPEC 02-26-2013 [place] [facility] ANESTHESIA WITHOUT GROUP PS MENTION COMPLICATIO N 4558 UNSPECIFIED 02-26-2013 [facility]ITAL WITH OTHER COMPLICATIO N V641 SURG/OTH 02-26-2013 [facility] BECAUSE CONTRAINDIC ATION 4550 INTERNAL 02-10-2013 [facility] HEMORRHOIDS SAMIRA WITHOUT MENTION COMP 485 BRONCHOPNEU 01-19-2013 [facility] [place] ORGANISM INTERNAL UNSPECIFIED MED 03876 OTHER 01-19-2013 [facility] MALAISE [place] FATIGUE INTERNAL MED 4293 CARDIOMEGAL 01-18-[facility] RADIOLOGY ASSOCIAT 86270 OTHER 01-18-2013 [facility] DISEASES OF RADIOLOGY LUNG NOT ASSOCIAT ELSEWHERE CLASSIFIED 6100 SOLITARY 01-13-2013 [facility] CYST OF [facility] BREAST [place] [facility] 86165 UNSPECIFIED 01-06-2013 [facility] ABNORMAL [facility] [place] 32822 DYSPHAGIA 12-09-2012 [facility] DUE TO [facility] CEREBROVASC [facility] CO ULAR HOS DISEASE 5533 DIAPHRAGMAT 12-09-2012 [facility] EDUARD W/O [facility] MENTION [facility] OBSTRUCTION HOS /GANGREN 78005 OTHER 12-08-2012 [facility] SPECIFIED RADIOLOGY DISORDERS ASSOCIAT OF BREAST V1589 OTH SPEC 12-08-2012 [facility] PERS HX [facility] PRESENTING [facility] HAZARDS HOS HEALTH OTH V163 FAMILY 12-08-2012 [facility], HISTORY OF [facility] MALIGNANT [facility] CO NEOPLASM OF HOS BREAST V7611 SCREENING 12-08-2012 [facility] MAMMOGRAM [facility] FOR [facility] CO HIGH-RISK HOS PATIENT V7612 OTHER 12-08-2012 [facility] SCREENING RADIOLOGY MAMMOGRAM ASSOCIAT 7213 LUMBOSACRAL 12-01-2012 [facility] SPONDYLOSIS WITHOUT MYELOPATHY 34418 DISPLCMT 12-01-2012 [facility] LUMBAR SERV INTERVERT FOUNDATIO DISC W/O MYELOPATHY 19781 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 [facility] LUMBAR/LUMB [facility] OSACRAL INTERVERTEB RAL DISC 22165 OTHER&UNSPE 12-01-2012 [facility] DISORDER OF LUMBAR REGION 60897 DIVERTICULO 11-17-2012 [facility] SIS OF MEM HOS[facility] COLON INC 59275 OTHER 11-17-2012 [facility] SYMPTOMS ANESTH OF INVOLVING THE BLUE DIGESTIVE SYSTEM OTHER V160 FM HX 11-17-2012 [facility] MALIGNANT [facility] NEOPLASM INC GASTROINTES TINAL TRACT V7651 SPECIAL 11-17-2012 [facility] SCREENING [facility] HOS[facility] FOR INC MALIGNANT NEOPLASMS COLON 78828 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 [facility] THESIS 42754 NEPHROTIC 11-05-2012 [place] [facility] SYND W/OTH SERV PATHAL LES FOUNDATIO DZ CLASS ELSW 18107 MUSCLE 11-05-2012 [place] [facility] WEAKNESS SERV (GENERALIZE FOUNDATIO D) 4553 EXTERNAL 10-19-2012 [facility] HEMORRHOIDS SAMIRA WITHOUT MENTION COMP 7856 ENLARGEMENT 10-05-2012[place] NODES ASSOCIAT 7866 SWELLING, 10-05-2012 [facility] MASS, OR [facility] [place] IN [facility] CHEST HOS V4576 ACQUIRED 10-05-2012 [facility], ABSENCE OF [facility] ORGAN, LUNG [facility] HOS V4589 OTHER 09-25-2012 [facility] POSTSURGICA [facility] L STATUS [facility] OTHER HOS V571 OTHER 09-24-2012 [facility] PHYSICAL [facility] THERAPY [facility] HOS 4421 ANEURYSM OF 09-21-2012 [facility] ARTERY 12445 OSTEOARTHRO 09-03-2012 [facility] S UNSPEC SERV WHETHER FOUNDATIO GEN/LOC SHLDR REGION 66534 OSTEOARTHRO 09-03-2012 [facility] SIS UNSPEC SERV WHETHER FOUNDATIO GEN/LOC LOWER LEG 16636 EFFUSION OF 09-03-2012 [facility] LOWER LEG SERV JOINT FOUNDATIO 30193 PAIN IN 09-03-2012 [facility], SERV SHOULDER FOUNDATIO REGION 69522 PAIN IN 09-03-2012 [facility], SERV LOWER LEG FOUNDATIO 7249 OTHER 09-03-2012 [facility] UNSPECIFIED SERV BACK FOUNDATIO DISORDER 25494 EXOSTOSIS 09-03-2012 [facility] OF SERV UNSPECIFIED FOUNDATIO SITE 7384 ACQUIRED 09-03-2012 [facility] SPONDYLOLIS SERV THESIS FOUNDATIO 02178 DEHYDRATION 08-04-2012 [facility] 5589 OTH&UNSPEC 08-04-2012 [facility] NONINFECTIO [facility] US [facility] GASTROENTER HOS ITIS&COLITI S 76094 VOMITING 08-04-2012 [facility] ALONE [facility] 4580 ORTHOSTATIC 06-19-2012 [facility] HYPOTENSION 5849 ACUTE 06-19-2012 [facility] FAILURE UNSPECIFIED 2720 PURE 06-05-2012 [facility] HYPERCHOLES [facility] TEROLEMIA [facility] 586 UNSPECIFIED 04-14-2012 CRIST[facility] CORNEJO RENAL MD [place] SRV 20855 OTH & UNS E 04-08-2012 [facility] COLI [facility] INFECTION [facility] CLASS ELSW HOS UNS SITE 2762 ACIDOSIS 04-08-2012 [facility] HOS 2767 HYPERPOTASS 04-08-2012 [facility] EMIA [facility] HOS 4589 UNSPECIFIED 04-07-2012 [facility] HOSPITAL HYPOTENSION 7862 COUGH 04-07-2012 [facility] ASSOCIAT 44253 ANEURYSM OF 03-23-2012 [facility] OTHER SERV VISCERAL FOUNDATIO ARTERY 06608 UNSPECIFIED 02-13-2012 [facility] OTAL[place]IA FAMILY MEDICINE P 6256 FEMALE 02-12-2012 [place] E [address] URGE 02-12-2012 [place] [address] URINARY 02-12-2012 [place] [address] URGENCY OF 02-12-2012 [facility] NURSE URINATION PRACTITIONE R GR 7336 TIETZES 07-10-2011 [facility] DISEASE [facility] HOS 68788 UNSPECIFIED 01-03-2011 [facility] PYELONEPHRI TIS 6826 CELLULITIS 01-03-2011 [facility] AND ABSCESS FAMILY OF LEG MEDICINE P EXCEPT FOOT 6954 LUPUS 01-03-2011 [facility] ERYTHEMATOS SERV US FOUNDATIO 82874 SWELLING OF 01-03-2011 [facility] LIMB SERV FOUNDATIO 7931 NONSPEC 01-03-2011 [facility] FIND RAD SERV OTH EXAM FOUNDATIO BODY STRUCT LUNG FIELD 34442 CRAMP OF 11-06-2010 [facility] 75870 DIARRHEA 11-06-2010 [facility] HOSPITAL V5865 LONG-TERM 11-06-2010 [facility] USE OF HOSPITAL STEROIDS V5869 LONG-TERM 11-06-2010 [facility] (CURRENT) HOSPITAL USE OF OTHER MEDICATIONS V5883 ENCOUNTER 11-06-2010 [facility] FOR HOSPITAL THERAPEUTIC DRUG MONITORING 72315 NAUSEA WITH 10-02-2010 [facility] V7260 LABORATORY 10-02-2010 [facility] UNSPECIFIED 4619 ACUTE 09-27-2010 [facility] SINUSITIS, FAMILY UNSPECIFIED MEDICINE P 85085 NUCLEAR 09-05-2010 [facility] SCLEROSIS 3669 UNSPECIFIED 09-04-2010 [facility] 7850 UNSPECIFIED 08-29-2010 [facility] TACHYCARDIA Medications Na ND Rx Da Fi [...] AT 60 15 15 FA E 1 GA SA 20 LY RA 0 H MG [...] /PAD/UNDG AGENCY AGENCY RMNT INCONT EA CREATININ 42116 [facility] 7 [facility] RENAL 50677 [facility] FUNCTION 7 [facility] PANEL INC INC URNLS DIP 62811 [facility] 7 [facility] STICK/TAB INC INC LET REAGENT AUTO MICROSCOP Y PROTEIN 51945 [facility] XCPT 7 [facility] REFRACTOM INC INC ETRY SERUM PLASMA/WH L BLD BLOOD 61554 [facility] COUNT 7 [facility] COMPLETE INC INC AUTO&AUTO DIFRNTL WBC CULTURE 83685 [facility] BACTERIAL 7 [facility] INC INC QUANTTATI VE COLONY COUNT URINE COLLECTIO 16274 [facility] N VENOUS 7 [facility] BLOOD INC INC VENIPUNCT URE PWR E2381 [facility]OVEROUND PNEUMATIC 7 DRIVE CORPORATI CORPORATI WHEEL ON ON TIRE REPL ONLY EACH PWR E2382 [facility]OUND TUBE [address]IVE ON ON WHEEL TIRE REPL EACH RADIOLOGI 56259 [place] [facility] C EXAM 7 MEDICAL CHEST 2 [...] ATION: ATION SER NATA Carrasquillo VAN VISUAL 08212 MINH THAKKAR FIELD XM 7 MEDICAL JR UNI/BI SERV W/INTERP FOUNDATIO EXTENDED N EXAM COMPUTERI 69311 [place] ZED 7 MEDICAL JR OPHTHALMI SERV C IMAGING FOUNDATIO RETINA N NONEMERGE A0130 FEDERATED FEDERATED NCY 7 TRANS TRANSPORT TRANSPORT SERVBLUEG ATION: ATION SER NATA Carrasquillo VAN DISPBL T4535 [facility]/KATHIE 7 HOME HOME ELD/GUARD HEALTH HEALTH /PAD/UNDG [place]ENC[place] [address] COMBINED COMBINED THYROID 7 PHYSICIAN PHYSICIAN STIMULATI [place] [address] COMBINED COMBINED FREE 7 PHYSICIAN [place] [address] COMBINED COMBINED TRIIODOTH 7 PHYSICIAN PHYSICIAN YRONINE S LA S LA T3 TOTAL TT3 BLOOD 19877 COMBINED COMBINED COUNT 7 PHYSICIAN PHYSICIAN COMPLETE S LA S LA AUTO&AUTO DIFRNTL WBC LIPID 34921 COMBINED COMBINED PANEL 7 PHYSICIAN PHYSICIAN S LA S LA COMPREHEN 81735 COMBINED COMBINED SIVE 7 PHYSICIAN PHYSICIAN METABOLIC S LA S LA PANEL PWR WC E2366 HOVEROUND HOVEROUND ACSS 7 BATTRY CORPORATI CORPORATI CHRGR 1 ON ON MODE W/ONLY 1 BATTRY PROTEIN 45152 [facility] TOTAL 7 HEALTHCAR HEALTHCAR XCPT E E REFRACTOM [facility] ETRY URINE NONEMERGE A0130 FEDERATED FEDERATED NCY 7 TRANS TRANSPORT TRANSPORT SERVBLUEG ATION: ATION SER NATA Carrasquillo VAN COLLECTIO 85620 [facility] N VENOUS 7 HEALTHCAR [facility] BLOOD E E VENIPUNCT [facility] URE C-REACTIV 91766 [place] E PROTEIN 7 [facility] BLOOD 03-21-201 02029 [place] [facility] COUNT 7 [facility] COMPLETE E E AUTO&AUTO [facility]IT[facility] DIFRNTL WBC SEDIMENTA 18782 [facility] TION RATE 7 [facility] RBC E E AUTOMATED [facility] FLUORESCE 84429 [facility] NT 7 [facility] NONNFCT E E AGT ANTB [facility] SCREEN EA ANTIBODY DXA BONE 63277 [place] GUILLEN DENSITY 7 MEDICAL STUDY 1/> SERV SITES FOUNDATIO AXIAL N SKEL COMPREHEN 45808 [facility] SIVE 7 [facility] METABOLIC E E PANEL [facility] URNLS DIP 24254 [facility] 7 [facility] STICK/TAB E E LET [facility] REAGENT AUTO MICROSCOP Y COMPLEMEN 61252 [place] [facility] T ANTIGEN 7 [facility] EACH E E COMPONENT [facility] CREATININ 90487 [place] E OTHER 7 [facility] SOURCE E E [facility] DISPBL T4535 [facility]/KATHIE 7 HOME HOME ELD/GUARD HEALTH HEALTH /PAD/UNDG AGENCY AGENCY RMNT INCONT EA NONEMERGE A0130 FEDERATED FEDERATED NCY 6 TRANS TRANSPORT TRANSPORT SERVBLUEG ATION: ATION SER NATA WHEELSAMIRAI Foreign VAN RADEX 77736 [facility] FOOT 6 [facility] COMPLETE INC INC MINIMUM 3 VIEWS COLLECTIO 48874 [facility] RE[facility] N VENOUS 6 [facility] BLOOD INC INC VENIPUNCT URE CULTURE 29814 [facility] RE[facility] BACTERIAL 6 [facility] INC INC QUANTTATI VE COLONY COUNT URINE CULTURE 85334 [facility] RE[facility] BCT 6 [facility] ISOL&PRSM INC INC PTV ID ISOLATE EA URINE PROTEIN 96898 [facility] RE[facility] XCPT 6 [facility] REFRACTOM INC INC ETRY SERUM PLASMA/WH L BLD BLOOD 70015 [facility] REY COUNT 6 [facility] COMPLETE INC INC AUTO&AUTO DIFRNTL WBC URNLS DIP 77149 [facility] REY 6 [facility] STICK/TAB INC INC LET REAGENT AUTO MICROSCOP Y SUSCEPTIB 79174 [facility] REY LTY STDY 6 [facility] ANTIMICRB INC INC IAL MICRO/AGA R DILUTJ RENAL 30364 [facility] REY FUNCTION 6 [facility] PANEL INC INC CREATININ 60989 [facility] REY E OTHER 6 [facility] SOURCE INC INC WALKING L4360 ADV[facility]ED [facility]VANCED BOOT 6 TECHNOLOG TECHNOLOG PNEUMATC IES INC IES INC &/ VACUUM PREFAB CUSTM FIT ORTHOTIC 52572 [facility]SY REY MGMT&NICK 6 [facility] [place] UXTR INC INC LXTR&/TRN K EA 15 RADEX 75521 [place] [facility] ALL FOOT 6 MEDICAL COMPLETE IMAGING MINIMUM 3 ASS VIEWS WALKER E0135 [facility] FOLDING 6 HOME HOME ADJUSTABL MEDICAL MEDICAL E OR EQUIPME EQUIPME FIXED HEIGHT CAST Q4038 [facility] HODGE MAD SUPPLIES 6 PHYSICIAN SHORT LEG S GROUP CAST ADULT FIBERGLAS S RADEX 51725 [place] ALL FOOT 6 MEDICAL COMPLETE IMAGING MINIMUM 3 ASS VIEWS SCREENING G0202 [place] KENNY 6 MEDICAL ANTWAN MAMMOGRAP IMAGING HY MARIA DEL ROSARIO ASS INCL CAD WHEN PERFORMD COMPUTER- 28802 [place] AIDED 6 MEDICAL ANTWAN DETECTION IMAGING ASS SCREENING MAMMOGRAP HY NONEMERG A0120 FEDERATED FEDERATED TRNSPRT: 6 MINI-BUS TRANSPORT TRANSPORT MTN ATION SER ATSCIONHEALTH SER AREA/OTH SYS HEPATIC 54536 [facility] FUNCTION 6 Y Y PANEL [facility] RENAL 52459 [facility] FUNCTION 6 Y Y PANEL [facility] URNLS DIP 17165 [facility] 6 Y Y STICK/TAB [facility] LET REAGENT AUTO MICROSCOP Y COMPLEMEN 19196 [facility] T ANTIGEN 6 Y Y EACH [facility]OSPITAL HOSPITAL COMPONENT C-REACTIV 11398 [facility] E PROTEIN 6 Y Y [facility] COLLECTIO 18811 [facility] N VENOUS 6 Y Y BLOOD [facility] VENIPUNCT URE NONEMERGE A0130 FEDERATED FEDERATED NCY 6 TRANS TRANSPORT TRANSPORT SERVBLUEG [place]ION: [place] [address] [facility] BLOOD/URI 6 Y Y C [facility]ID [facility] PROTEIN 58791 [facility] TOTAL 6 Y Y XCPT HOSPITAL HOSPITAL REFRACTOM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 STUDY DOSE HOS BED E0260 RICHARDSON BAI SEMI-ELEC 3 HOME HOME W/ANY MEDICAL MEDICAL TYPE SIDE EQUIPME EQUIPME RAIL W/MATTRSS LIPID 30295 [facility] PANEL 3 [facility] PWR WC K0823 HOVEROUND HOVEROUND GRP 2 STD 3 [facility] CORPORATI CORPORATI CHAIR PT ON ON TO &=300 LBS BASIC 88699 [facility] METABOLIC 3 [facility] CALCIUM TOTAL ECG 82946 [facility] ROUTINE 3 [facility] HOSPITAL W/LEAST 12 LDS TRCG ONLY W/O I&R ECG 86963 NAVID MATOS ROUTINE 3 EMERGENCY KAMILA ECG SERVICES W/LEAST 12 LDS I&R ONLY COLLECTIO 68243 [facility] N VENOUS 3 [facility] VENIPUNCT URE OBSERVATI 93531 NAVID MATOS ON CARE 3 EMERGENCY KAMILA DISCHARGE SERVICES MANAGEMEN T BLOOD 75758 [facility] COUNT 3 [facility] [place] [address] [facility] TROPONIN 3 [facility] [place] [address] [facility] TROPONIN 3 [facility] KETAN INJECTION J[address] [place] [facility] TROMETHAM INE PER 15 MG INJECTION J2710 [address] [facility] NE METHYLSUL FATE UP TO 0.5 MG INJECTION J3010 [facility] FENTANYL 3 [facility] 0.1 MG COLLECTIO 38866 [facility] N VENOUS 3 [facility] VENIPUNCT URE INJECTION J[address] HOSPITAL ON HCL PER 1 MG HOSPITAL G0378 [facility] OBSERVATI [address] [facility]OSPITAL SERVICE PER HOUR INITIAL 96947 NAVID SINCLAIR 3 EMERGENCY PEDRITO IGN ON SERVICES CARE/DAY 70 MINUTES NONINVASI 67141 [facility] JULIO [facility] SP[facility] MEDICINE[facility]VI VE 3 [facility] EAR/[facility] OXIMETRY SINGLE DETER INJECTION J0690 CHRISTOPHER JAINON 3 [facility] SODIUM 500 MG INJECTION J2250 JULIO [facility]ICINEELVI HARRELLFREEM[facility] OR[facility] SP[facility] MEDICINEON 3 [facility] MID[facility]OLAM [facility] HCL PER 1 MG ECG 06517 CHRISTOPHER JAINON ROUTINE 3 [facility] HOSPITAL W/LEAST 12 LDS TRCG ONLY W/O I&R INJECTION J1100 [facility] [address] [facility] SONE SODIUM PHOSPHATE 1 MG INJECTION J2001 [facility] [address] [place] [facility] HCL INTRAVENO US INFUS 10 MG ANESTHESI 70318 [facility] RONY Cruz 3 ANESTHESI CAM ANORECTAL A GROUP PS PROCEDURE ANOSCOPY 05735 CELIA YANG JR DX 3 SAMIRA SAMIRA W/COLLJ SPEC BR/WA SPX WHEN PRFRMD HEMORRHOI 25426 [facility] DECTOMY [address] [place] [address] RUBBER BAND LIGATIONS CREATINE 92257 CHRISTOPHER WHITE KINASE MB 3 [facility] [place] [address] JULIO [facility]VI WHITE THYROID 3 [facility] [place] [address] JULIO [facility]ICINE[facility]VI WHITE FREE [address] [place] [address] HOSPITAL ECG 55139 CRISTIAN CORNEJO CORNEJO CRISTIAN ROUTINE 3 MD ECG CONSULTIN W/LEAST G SRV 12 LDS I&R ONLY ECG 63415 CHRISTOPHER WHITE ROUTINE 3 [facility] HOSPITAL W/LEAST 12 LDS TRCG ONLY W/O I&R BASIC 23725 JULIO [facility]VI WHITE METABOLIC 3 [facility] CALCIUM TOTAL COLLECTIO 63181 CHRISTOPHER WHITE N VENOUS 3 [facility] BLOOD [facility]OSPITAL VENIPUNCT URE BLOOD 70376 CHRISTOPHER WHITE COUNT 3 [facility] HEMOGLOBI [facility] N BLOOD 07775 [facility]VI WHITE COUNT 3 [facility] HEMATOCRI [facility] T DISPBL T4535 [facility]/KATHIE [...] TYPE SIDE EQUIPME EQUIPME RAIL W/MATTRSS HOSPITAL 99608 [facility] DISCHARGE 3 [facility] DAY INTERNAL MANAGEMEN MED T 30 MIN/< SBSQ 65328 [facility] 3 [facility] CARE/DAY INTERNAL 25 MED MINUTES SBSQ 18775 [facility] 3 [facility] CARE/DAY INTERNAL 25 MED MINUTES INITIAL 77077 [facility] 3 [facility] CARE/DAY INTERNAL 50 MED MINUTES RADIOLOGI 42564 [facility] EXAM 3 LILIBETH CHEST 2 RADIOLOGY VIEWS ASSOCIAT FRONTAL&L ATERAL US BREAST 22343 [facility] [employer], [employer], REAL 3 [facility] TIME ANDREY BALDERAS W/IMAGE CO HOS CO HOS DOCUMENTA TION MAMMOGRAP 21017 [facility] [employer], [facility], HY 3 [facility] UNILATERA ANDREY ANDREY L CO HOS CO HOS MAMMOGRAP 40247 [facility], [facility], HY 3 [facility] BILATERAL ANDREY ANDREY CO HOS CO HOS PWR K0823 HOVEROUND HOVEROUND GRP 2 STD 3 CAPTAINS CORPORATI CORPORATI CHAIR PT ON ON TO &=300 LBS HOS BED E0260 RICHARDSON RICHARDSON SEMI-ELEC 3 HOME HOME W/ANY MEDICAL MEDICAL TYPE SIDE EQUIPME EQUIPME RAIL W/MATTRSS RENAL 92645 [facility], [facility], FUNCTION 3 [facility] T[facility] PANEL ANDREY HANSENS CO HOS CO HOS SUSCEPTBI 65130 [facility], [facility], LTY STDY 3 [facility] ANTIMICRB ANDREY BALDERAS IAL AGNT CO HOS CO HOS AGAR DILUTJ URNLS DIP 48646 [employer], 3 [facility] STICK/TAB ANDREY RIVEROOLAS LET CO HOS CO HOS REAGENT AUTO MICROSCOP Y CULTURE 31143 [employer], BACTERIAL 3 [facility] ANDREY ANDREY QUANTTATI CO HOS CO HOS VE COLONY COUNT URINE CULTURE 57634 [employer], BCT 3 [facility] ISOL&PRSM ANDREY RIVEROOLAS PTV ID CO HOS CO HOS ISOLATE EA URINE BLOOD 83404 [employer], [employer], COUNT 3 [facility] COMPLETE ANDREY ANDREY AUTO&AUTO CO HOS CO HOS DIFRNTL WBC 25 59097 [employer], HYDROXY 3 [facility] INCLUDES ANDREY ANDREY FRACTIONS [place] [address] [employer], PARATHORM 3 [facility] ONE ANDREY ANDREY CO HOS CO HOS PROTEIN 26820 [employer], TOTAL 3 [facility] XCPT ANDREY ANDREY REFRACTOM CO HOS CO HOS ETRY URINE CREATININ 69542 [employer], E OTHER 3 [facility] SOURCE ANDREY ANDREY CO HOS CO HOS RADEX 24519 [facility] ESOPHAGUS 3 [facility] RADIOLOGY ASSOCIAT SCREENING 44885 [facility] 3 [facility] MAMMOGRAP RADIOLOGY HY ASSOCIAT BILATERAL DISPBL T4535 [facility]/KATHIE 3 HOME HOME ELD/GUARD HEALTH HEALTH /PAD/UNDG AGENCY AGENCY RMNT INCONT EA ADLT SZD T4526 [facility] DISPBL 3 HOME HOME INCONT HEALTH HEALTH PROD AGENCY AGENCY UNDWEAR MED EA MRI 34716 [facility] 3 Y Y CANAL [facility] LUMBAR W/O CONTRAST MATERIAL HOS BED E0260 RICHARDSON BAI SEMI-ELEC 3 HOME HOME W/ANY MEDICAL MEDICAL TYPE SIDE EQUIPME EQUIPME RAIL W/MATTRSS PWR K0823 HOVEROUND HOVEROUND GRP 2 STD 3 [facility]TAINS CORPORATI CORPORATI CHAIR PT ON ON TO &=300 LBS ANES 73054 [facility] KAMILA LOWER 3 ANESTH INTESTINE [place] [address] KRISSY KRISSY INFUSION 3 [facility] THERAPY INC [place] PROPHY[place] [address] KRISSY KRISSY INFUSION 3 [facility] THERAPY/P INC INC ROPHYLAXI S /DX 1ST TO 1 HR COLOREC G0105 ALLTOYIN JR ALLRAN JR CANCR 3 SAMIRA SAMIRA SCR; COLONSCPY INDIVIDUL @HIGH RISK NJX 34055 [facility] DX/THER 3 Y Y AGT PVRT [facility] FACET JT LMBR/SAC 1 LEVEL INJECTION J3301 [facility] 3 Y Y [facility] NOS 10 MG LOCM Q9967 [facility] [phone] 3 Y Y MG/ML [facility] IODINE CONCENTRA TION PER ML ADLT [...] TYPE SIDE EQUIPME EQUIPME RAIL W/MATTRSS THERAPEUT 55834 [employer], IC PX 1/> 2 [facility] AREAS ANDREY ANDREY EACH 15 CO HOS CO HOS MIN EXERCISES THERAPEUT 54315 [employer], [employer], IC PX 1/> 2 [facility] AREAS ANDREY ANDREY EACH 15 CO HOS CO HOS MIN EXERCISES INCONTINE T4541 [facility] NCE 2 HOME HOME PRODUCT HEALTH HEALTH DISPOSABL AGENCY AGENCY E UNDPAD LARGE EA CREATININ 29858 [employer], [employer] INC, E BLOOD 2 [facility] ANDREY ANDREY CO HOS CO HOS THERAPEUT 96483 [employer], [employer], IC PX 1/> 2 [facility] LOC[facility] TENENS AREAS ANDREY ANDREY EACH 15 CO HOS CO HOS MIN EXERCISES CT THORAX 42955 [facility] [employer], [employer], W/O 2 [facility] CONTRAST ANDREY [place]RE[place] [address] [employer], UREA 2 [facility] NITROGEN ANDREY ANDREY QUANTITAT CO HOS CO HOS KETAN THERAPEUT 06695 [employer], [employer], IC PX 1/> 2 [facility]ENS LOCUM TENENS AREAS ANDREY ANDREY EACH 15 CO HOS CO HOS MIN EXERCISES HOS BED E0260 RICHARDSON RICHARDSON SEMI-ELEC 2 HOME HOME W/ANY MEDICAL MEDICAL TYPE SIDE EQUIPME EQUIPME RAIL W/MATTRSS THERAPEUT 23719 [facility] [employer], [employer], IC PX 1/> 2 [facility] LOC[facility] TENENS AREAS ANDREY ANDREY EACH 15 [place] [address] [employer], [employer], 1/> AREAS 2 [facility] LOCUM TENENS EA 15 ANDREY ANDREY MIN GAIT CO HOS CO HOS TRAINJ W/STAIR RADIOLOGI 16009 [facility] C EXAM 2 EIDER DEE CHEST 2 RADIOLOGY VIEWS ASSOCIAT FRONTAL&L ATERAL THERAPEUT 72194 [employer], [employer], IC PX 1/> 2 [facility]ENS LOCUM TENENS AREAS ANDREY ANDREY EACH 15 CO HOS CO HOS MIN EXERCISES THERAPEUT 96823 [employer], [employer], IC PX 1/> 2 [facility]ENS LOC[facility] TENENS AREAS ANDREY ANDREY EACH 15 CO HOS CO HOS MIN EXERCISES PHYSICAL 47173 [employer], THERAPY 2 [facility] EVALUATIO [place] [address] [facility] ABDOMEN & 2 Y Y PELVIS [facility] W/O CONTRAST MATERIAL RADEX 23583 [place] DEL[place] PEDRO SHOULDER 2 MEDICAL COMPLETE SERV MINIMUM 2 FOUNDATIO VIEWS CREATINE 15239 [facility] KINASE 2 Y Y TOTAL [facility] [place] [place] [address] [facility] ALDOLASE 2 Y Y HOSPITAL HOSPITAL RADIOLOGI 25412 MINH DELICIA PEDRO C 2 MEDICAL EXAMINATI SERV ON KNEE FOUNDATIO 1/2 VIEWS SEDIMENTA 46023 [facility] TION RATE 2 Y Y RBC [facility] AUTOMATED RADEX 51497 MINH VASQUEZ SPINE 2 MEDICAL LUMBOSACR SERV AL 2/3 FOUNDATIO VIEWS COLLECTIO 83960 [facility] N VENOUS 2 Y Y BLOOD [facility] VENIPUNCT URE C-REACTIV 25375 [facility] E PROTEIN 2 Y Y HOSPITAL [facility] ADLT SZD T4526 [facility] DIS[facility]BL 2 HOME HOME INCONT HEALTH HEALTH PROD AGENCY AGENCY UNDWEAR MED EA DISPBL T4535 [facility]/KATHIE 2 HOME HOME ELD/GUARD HEALTH HEALTH /PAD/UNDG AGENCY AGENCY RMNT INCONT EA CREATININ 15677 [employer], E OTHER 2 [facility] SOURCE ANDREY BALDERAS CO HOS CO HOS PROTEIN 28779 [employer], TOTAL 2 [facility] LOC[facility] XCPT ANDREY BALDERAS REFRACTOM CO HOS CO HOS ETRY URINE CULTURE 86453 [employer], BACTERIAL 2 [facility] LOC[facility] T[facility] ANDREY BALDERAS QUANTTATI CO HOS CO HOS VE COLONY COUNT URINE CULTURE 55845 [employer], BCT 2 [facility] LOC[facility] ISOL&PRSM ANDREY BALDERAS PTV ID CO HOS CO HOS ISOLATE EA URINE BLOOD 84741 [employer], [employer], COUNT 2 [facility] LOC[facility] COMPLETE ANDREY BALDERAS AUTO&AUTO CO HOS CO HOS DIFRNTL WBC URNLS DIP 44726 [employer], 2 [facility] LOC[facility] STICK/TAB ANDREY BALDERAS LET CO HOS CO HOS REAGENT AUTO MICROSCOP Y SUSCEPTBI 43984 [employer], LTY STDY 2 [facility] LOC[facility] ANTIMICRB ANDREY BALDERAS IAL AGNT CO HOS CO HOS AGAR DILUTJ RENAL 27227 [employer], FUNCTION 2 [facility] PANEL ANDREY ANDREY CO HOS CO HOS BASIC 03062 [facility] [employer], [facility], METABOLIC 2 LOC[facility]ENS LOC[facility] PANEL ANDREY ANDREY CALCIUM CO HOS CO HOS TOTAL BLOOD 60338 [facility] [employer], [facility], COUNT 2 [facility]ENS LOC[facility] COMPLETE ANDREY ANDREY AUTO&AUTO CO HOS CO HOS DIFRNTL WBC BLOOD 67873 [facility] [employer], [facility], COUNT 2 [facility] COMPLETE ANDREY ANDREY AUTO&AUTO CO [place] [phone] [facility] [employer], [facility], LIPASE 2 [facility] ANDREY ANDREY CO HOS CO HOS CULTURE [id number] [facility], [facility] BCT 2 [facility] ISOL&PRSM ANDREY ANDREY PTV ID CO HOS CO HOS ISOLATE EA URINE CULTURE [phone] [facility], [facility], BACTERIAL 2 [facility] ANDREY ANDREY QUANTTATI CO HOS CO HOS VE COLONY COUNT URINE DIRECT [id number] [facility] [employer], [facility], ADMISSION 2 [facility] PATIENT [facility] CO HOS CO HOS FORMERLY [facility] [id number] [facility], [facility], OBSERVATI 2 [facility] ON ANDREY ANDREY SERVICE CO HOS CO HOS PER HOUR INJECTION [id number] [facility] [employer], [facility], 2 [facility] ONDANSETR ANDREY ANDREY ON HCL CO HOS CO HOS PER 1 MG SUSCEPTBI [id number] [facility] [employer], [facility], LTY STDY 2 [facility] ANTIMICRB ANDREY ANDREY IAL AGNT CO HOS CO HOS AGAR DILUTJ URNLS DIP 54750 [facility] [employer], [facility], 2 [facility] STICK/TAB ANDREY ANDREY LET CO [facility] [place] [address] [facility] [employer], [facility], INFUSION 2 [facility] THERAPY/P ANDREY ANDREY ROPHYLAXI CO HOS CO HOS S /DX 1ST TO 1 HR COMPREHEN [phone] [facility] [employer], [facility], SIVE 2 [facility] METABOLIC [place] [phone] [facility] [employer], [facility], INFUSION 2 [facility] HYDRATION ANDREY ANDREY INITIAL CO HOS CO HOS 31 MIN-1 HOUR DISPBL [id number] [facility]/KATHIE 2 HOME HOME ELD/GUARD HEALTH HEALTH /PAD/UNDG AGENCY AGENCY RMNT INCONT EA ADLT SZD T4526 [facility] DISPBL 2 HOME HOME INCONT HEALTH HEALTH PROD AGENCY AGENCY UNDWEAR MED EA ECG [id number] CRISTIAN CORNEJO CORNEJO CRISTIAN ROUTINE 2 MD ECG CONSULTIN W/LEAST G SRV 12 LDS I&R ONLY ECG [id number] CRISTIAN CORNEJO CORNEJO CRISTIAN ROUTINE 2 MD ECG CONSULTIN W/LEAST G SRV 12 LDS I&R ONLY HOSPITAL [phone] JAVIER JAVIER DISCHARGE 2 PEDRO PEDRO DAY MANAGEMEN T 30 MIN/< [place] [phone] [employer], [employer], INFUSION 2 [facility] HYDRATION ANDREY BALDERAS INITIAL CO HOS CO HOS 31 MIN-1 HOUR FIBRIN [address] [employer], DGRADJ 2 [facility] PRODUCTS ANDREY BALDERAS D-DIMER CO HOS CO HOS QUAL/SEMI HEATHER PROTHROMB 08050 [employer], IN TIME 2 [facility] ANDREY HANSENS CO HOS CO HOS COMPREHEN 02889 [employer], SIVE 2 [facility] METABOLIC [place] [address] [employer], INFUSION 2 [facility] THERAPY/P ANDREY BALDERAS ROPHYLAXI CO HOS CO HOS S /DX 1ST TO 1 HR URNLS DIP 49102 [employer], 2 [facility] STICK/TAB ANDERY BALDERAS LET CO HOS CO HOS REAGENT AUTO MICROSCOP Y NATRIURET 62145 [employer], IC 2 [facility] PEPTIDE ANDREY [place] CO HOS CO HOS SUSCEPTBI 21670 [employer], LTY STDY 2 [facility] ANTIMICRB ANDREY BALDERAS IAL AGNT CO HOS CO HOS AGAR DILUTJ ECG 54004 [employer], ROUTINE 2 [facility] ECG ANDREY ANDREY W/LEAST CO HOS CO HOS 12 LDS TRCG ONLY W/O I&R CULTURE 80489 [facility] BACTERIAL 2 [facility] ANDREY ANDREY QUANTTATI CO HOS CO HOS VE COLONY COUNT URINE RADIOLOGI 98672 LEVAR HOUSTON C 2 LILIBETH EXAMINATI RADIOLOGY ON CHEST ASSOCIAT SINGLE VIEW FRONTAL CULTURE 16327 [facility], BCT 2 [facility] ISOL&PRSM ANDREY ANDREY PTV ID CO HOS CO HOS ISOLATE EA URINE CREATINE 38211 [facility], [employer], KINASE 2 [facility] TOTAL ANDREY ANDREY CO HOS CO HOS BLOOD 75161 [facility] [employer], [facility] COUNT 2 [facility] COMPLETE ANDREY ANDREY AUTO&AUTO [place] [address] [facility] [employer], [facility], TROPONIN 2 [facility] QUANTITAT ANDREY ANDREY KETAN CO HOS CO HOS CREATINE 22128 [facility] [employer], [facility], KINASE MB 2 [facility] FRACTION ANDREY [place] [address] [employer], FREE 2 [facility] THYROXINE [place] [address] [employer], [facility], THYROID 2 [facility] STIMULATI ANDREY ANDREY NG CO HOS CO HOS HORMONE TSH LIPID 84099 [facility] [employer], [facility], PANEL 2 [facility] ANDREY ANDREY CO HOS CO HOS COMPREHEN 77075 [employer], SIVE 2 [facility] METABOLIC ANDREY ANDREY PANEL CO HOS CO HOS ECG 62848 CRISTIAN CORNEJO CORNEJO CRISTAIN ROUTINE 2 ECG CONSULTIN W/LEAST G SRV 12 LDS I&R ONLY URNLS DIP 59051 [facility] [employer], [facility], 2 [facility] STICK/TAB ANDREY ANDREY LET CO HOS CO HOS REAGENT AUTO MICROSCOP Y ARTERIAL 12173 [facility] [employer], [facility], PUNCTURE 2 [facility] WITHDRAWA ANDREY ANDREY L BLOOD CO HOS CO HOS DX RADIOLOGI 83384 [facility] [employer], [facility], C EXAM 2 [facility] CHEST 2 ANDREY ANDREY VIEWS CO HOS CO HOS FRONTAL&L ATERAL ECG 64440 [facility], [facility], ROUTINE 2 [facility] ECG ANDREY ANDREY W/LEAST CO HOS CO HOS 12 LDS TRCG ONLY W/O I&R COMPREHEN 00611 [facility], [facility], SIVE 2 [facility] METABOLIC ANDREY ANDREY PANEL CO HOS CO HOS CULTURE 74037 [facility], [facility], BACTERIAL 2 [facility] ANDREY ANDREY QUANTTATI CO HOS CO HOS VE COLONY COUNT URINE INJECTION J2280 [facility], [facility], 2 [facility] MOXIFLOXA ANDREY ANDREY KJ 100 CO HOS CO HOS MG GASES 48861 [facility], [facility], BLOOD PH 2 [facility] DIRECT ANDREY ANDREY FELA XCPT CO HOS CO HOS [facility]UL[facility] [id number] [facility], [facility], OBSERVATI 2 [facility] ON ANDREY ANDREY SERVICE CO HOS CO HOS PER HOUR CULTURE 84610 [facility], [facility], BCT 2 [facility] ISOL&PRSM ANDREY ANDREY PTV ID CO HOS CO HOS ISOLATE EA URINE BLOOD 88136 [facility] [employer], [facility], COUNT 2 [facility] COMPLETE ANDREY ANDREY AUTO&AUT[place] [address] [facility] [employer], [facility], INFUSION 2 [facility] THERAPY/P ANDREY ANDREY ROPHYLAXI CO HOS CO HOS S /DX 1ST [place] 1 [place] [address] [facility] [employer], [facility], INFUSION 2 [facility] HYDRATION ANDREY ANDREY INITIAL CO HOS CO HOS 31 MIN-1 [place] [address] [facility] [employer], [facility], INFUSION 2 [facility] HYDRATION ANDREY ANDREY EACH CO HOS CO HOS ADDITIONA L HOUR SUSCEPTBI 61676 [facility], [facility], LTY STDY 2 [facility] ANTIMICRB ANDREY ANDREY IAL AGNT CO HOS CO HOS AGAR DILUTJ BASIC 48747 [facility], [facility], METABOLIC 2 [facility] PANEL ANDREY ANDREY CALCIUM CO HOS CO HOS TOTAL RADIOLOGI 82889 [facility] C EXAM 2 LILIBETH CHEST 2 RADIOLOGY VIEWS ASSOCIAT FRONTAL&L ATERAL CV STRS 06251 [facility] 2 Y Y XERS&/OR [facility] RX CONT ECG TRCG ONLY CV STRS 31390 MIN[facility] PICHARDO TST 2 MEDICAL SAMIRA XERS&/OR SERV RX CONT FOUNDATIO ECG W/O I&R INJECTION J2785 [facility] 2 Y Y [facility] ON 0.1 MG TECHNETIU A9500 [facility] TC-99M 2 Y Y [facility] DX PER STUDY DOSE MYOCARDIA 55025 [facility] SPECT 2 Y Y [facility] STUDIES INJECTION J0280 [place] [address] Y [facility] ALEXANDER UP TO 250 MG CV STRS 47290 MINH PICHARDO TST 2 MEDICAL SAMIRA XERS&/OR SERV RX CONT FOUNDATIO ECG I&[place] [address] [facility] ABDOMEN & 2 Y Y PELVIS [facility] W/O CONTRAST MATERIAL ECG 47467 CRISTIAN CORNEJO CORNEJO CRISTIAN ROUTINE 2 MD ECG CONSULTIN W/LEAST G SRV 12 LDS I&R ONLY SUSCEPTIB 65282 [facility] STDY 2 Y Y [facility] IAL MICRO/AGA R DILUTJ SUSCEPTBI 19658 [facility] STDY 2 Y Y [facility] IAL AGNT AGAR DILUTJ URINLS 39628 [facility] DAVEY DIP 2 NURSE GWE STICK/TAB PRACTITIO LET NER GR REAGNT NON-AUTO MICRSCPY CULTURE 81691 [facility] BACTERIAL 2 Y Y [facility] QUANTTATI VE COLONY COUNT URINE CUL BACT 96112 [facility] A[facility]OBIC 2 [facility] DEFINITIV E EA ISOL ECG 72489 CRISTIAN CORNEJO CORNEJO CRISTIAN ROUTINE 2 MD ECG CONSULTIN W/LEAST G SRV 12 LDS I&R ONLY ECG 76902 CRISTIAN CORNEJO CORNEJO CRISTIAN ROUTINE 1 MD ECG CONSULTIN W/LEAST G SRV 12 LDS I&R ONLY ECG 41949 CRISTIAN CORNEJO CORNEJO CRISTIAN ROUTINE 1 MD ECG CONSULTIN W/LEAST G SRV 12 LDS I&R ONLY URNLS DIP 47310 ANDREY BALDERAS 1 CO CO STICK/TAB [facility] LET REAGENT AUTO MICROSCOP Y SUSCEPTBI 48701 ANDREY BALDERAS LTY STDY 1 CO CO ANTIMICRB [facility] IAL AGNT AGAR DILUTJ COMPREHEN 66490 ANDREY BALDERAS SIVE 1 CO CO METABOLIC [facility] PANEL CULTURE 88178 ANDREY BALDERAS BACTERIAL 1 CO [facility] QUANTTATI VE COLONY COUNT URINE PROTEIN 62132 ANDREY BALDERAS TOTAL 1 CO CO XCPT [facility] REFRACTOM ETRY URINE CULTURE 37872 ANDREY BALDERAS BCT 1 CO MI ISOL&PRSM [facility] PTV ID ISOLATE EA URINE BLOOD 88589 ANDREY BALDERAS COUNT 1 CO CO COMPLETE [facility] AUTO&[place] [address] ANDREY BALDERAS PHOSPHORU 1 CO [facility] INORGANIC COLLECTIO 51144 ANDREY BALDERAS N VENOUS 1 [facility] BLOOD [facility] VENIPUNCT URE BLOOD 61459 ANDREY CHAVARRIA 1 CO MI SMEAR [facility] MCRSCP W/[place] [address] ANDREY BALDERAS BLOOD/URI 1 CO CO C ACID [facility] CREATININ 91115 ANDREY BALDERAS E OTHER 1 CO CO SOURCE [facility]OSPITAL 02902 [facility] [place] [facility]IC[facility] MANAGEMEN P T 30 MIN/< DUP-SCAN 25489 [place] MARIO XTR VEINS 1 MEDICAL [place] SERV UNILATERA FOUNDATIO L/LIMITED STUDY ECG 84249 [place] OLIVEIRA ROUTINE 1 MEDICAL NAN ECG SERV W/LEAST FOUNDATIO 12 LDS I&R ONLY RADIOLOGI 89990 [place] DELICIA PEDRO C EXAM 1 MEDICAL CHEST 2 SERV VIEWS FOUNDATIO FRONTAL&L ATERAL RADIOLOGI 83846 ANDREY BALDERAS C 0 CO CO [facility] ON PELVIS 1/2 VIEWS COMPLEMEN 61892 ANDREY Flor TOTAL 0 CO CO HEMOLYTIC [facility] OVA&ZONIA 05113 ANDREY BALDERAS ITES 0 CO CO DIRECT [facility] SMEARS CONCENTRA TION & ID URNLS DIP 77069 ANDREY BALDERAS 0 CO CO STICK/TAB [facility] LET REAGENT AUTO MICROSCOP Y COMPLEMEN 66917 ANDREY BALDERAS T ANTIGEN 0 CO [facility] COMPONENT RADEX HIP 16665 ANDREY BALDERAS 0 CO CO UNILATERA [facility] L COMPLETE MINIMUM 2 VIEWS SEDIMENTA 19825 ANDREY BALDERAS TION RATE 0 CO CO RBC [facility] NON-AUTOM ATED RENAL 41171 ANDREY BALDERAS FUNCTION 0 CO CO PANEL [facility] BLOOD 44483 ANDREY BALDERAS COUNT 0 CO CO SMEAR [facility] MCRSCP W/MNL DIFRNTL WBC COUNT PROTEIN 81145 ANDREY BALDERAS TOTAL 0 CO CO XCPT [facility] REFRACTOM ETRY URINE COLLECTIO 69497 ANDREY BALDERAS N VENOUS 0 CO CO BLOOD [facility] VENIPUNCT URE C-REACTIV 24281 ANDREY BALDERAS E PROTEIN 0 CO CO [facility] DNA 75052 ANDREY BALDERAS ANTIBODY 0 CO CO KIANA/DO [facility] [place] [address] ANDREY BALDERAS PARATHORM 0 CO [facility] CREATINE 59937 ANDREY BALDERAS KINASE 0 [place] [address] ANDREY BALDERAS ALDOLASE 0 CO CO [facility] 25 51483 ANDREY BALDERAS HYDROXY 0 CO CO INCLUDES HOSPITAL HOSPITAL FRACTIONS IF PERFORMED RADIOLOGI 65601 ANDREY BALDERAS C 0 CO CO [facility] KNEE 3 VIEWS CREATININ 59659 ANDREY Bolivar OTHER 0 CO CO SOURCE [facility] BLOOD 28177 [facility] COUNT 0 Y Y COMPLETE [facility] AUTO&AUTO DIFRNTL WBC COLLECTIO 03040 [facility] N VENOUS 0 Y Y BLOOD [facility] VENIPUNCT URE COMPREHEN 68676 [facility] SIVE 0 Y Y METABOLIC [facility] PANEL COMPREHEN 23045 [facility] SIVE 0 Y Y METABOLIC [facility] PANEL COLLECTIO 23253 [facility] N VENOUS 0 Y Y BLOOD [facility] VENIPUNCT URE BLOOD 60327 [facility] COUNT 0 Y Y COMPLETE [facility] AUTO&AUTO DIFRNTL WBC CHROMATOG 86635 [facility] SURYA 0 Y Y HEATHER [facility] COLUMN 1 ANALYTE KARLENE OPH BMTRY 51450 PHILIPP RIVERO BRANT PRTL 0 ROBERT COHER INTRFRMTR Y IO LENS PWR KELLEE CATARACT 45856 ROBERT S SEGAL REMOVAL 0 SEGAL ESTEFANIA INSERTION PS OF LENS ANESTHESI 74545 [facility] G A EYE 0 ANESTHESI LENS A ASSOC SURGERY ECG 28525 [facility] ROUTINE 0 Y Y ECG [facility] W/LEAST 12 LDS TRCG ONLY W/O I&R Encounters Encounter Start End Date Code Location Performer Type Date HOME [facility], 7 7 HOME INPATIENT HEALTH AGENCY [facility] KRISSY - 7 7 [facility] OUTPATIEN INC T [place]ICE 95278 [place] GUILLEN OUTPATI 7 7 MEDICAL T VISIT SERV 25 FOUNDATIO MINUTES [facility] NECESSITY - 7 7 [facility] OUTPATIEN INC T HOME [facility] 7 7 HOME INPATIENT HEALTH AGENCY OFFICE 22133 [place] ARIANE OUTPATIEN 7 7 MEDICAL JR T NEW 45 SERV MINUTES [facility] N [place] 68501 [place] HER[place] OUTPATIEN 7 7 MEDICAL T VISIT SERV 40 FOUNDATIO MINUTES N HOME [facility], 7 7 HOME INPATIENT HEALTH AGENCY OFFICE 46452 [place] HERBERT OUTPATIEN 7 7 MEDICAL T VISIT SERV 40 FOUNDATIO MINUTES [facility] UK - 7 7 HEALTHCAR OUTPATIEN E [facility], 7 7 HOME INPATIENT HEALTH AGENCY OFFICE 37832 [place] GUILL[place] PERRY OUTPATIEN 6 6 MEDICAL T VISIT SERV 25 FOUNDATIO MINUTES OFFICE 46684 [facility] HODGE MAD OUTPATIEN 6 6 PHYSICIAN T VISIT S GROUP 10 [facility] KRISSY - 6 6 MEM [facility] OUTPATIEN INC T OFFICE 15882 [facility] HODGE MAD OUTPATIEN 6 6 PHYSICIAN T VISIT S GROUP 10 MINUTES [facility] KRISSY - 6 6 [facility] OUTPATIEN INC [facility] KRISSY - 6 6 [facility] OUTPATIEN [facility] T OFFICE 26082 [facility] HODGE MAD OUTPATIEN 6 6 PHYSICIAN T VISIT S GROUP 15 MINUTES OFFICE 56427 [facility] HODGE MAD OUTPATIEN 6 6 PHYSICIAN T NEW 30 S GROUP [facility] KRISSY - 6 6 [facility] OUTPATIEN INC [facility] KRISSY - 6 6 [facility] OUTPATIEN INC T OFFICE 17473 [place] HERBERT KRI OUTPATIEN 6 6 MEDICAL T VISIT SERV 25 FOUNDATIO MINUTES [facility] UNIVERSIT - 6 6 Y OUTPATIEN [facility] 6 6 HOME INPATIENT HEALTH AGENCY EMERGENCY 01027 [facility] DEPT 6 6 HARIS VISIT EMERGENCY HIGH PHYS SEVERITY& THREAT FUNC HOME [facility], 6 6 HOME INPATIENT HEALTH AGENCY [facility] - 6 6 [facility] 78310 [facility] ARGUETA OUTPATIEN 6 6 MEDICAL T VISIT SERV 40 FOUNDATIO MINUTES N OFFICE 22392 [place] JAQUEZ OUTPATIEN 6 6 [facility] T VISIT INTERNAL 15 MEDI MINUTES HOSPITAL KRISSY - OTHER 6 6 MEM [facility]OS[facility] INC HOME [facility], 6 6 HOME INPATIENT HEALTH AGENCY OFFICE 32372 [place] YOVANY OUTPATIEN 6 6 VALLEY NICOLA T VISIT INTERNAL 15 MEDI MINUTES OFFICE 05253 [facility] AMADOR OUTPATIEN 6 6 MEDICAL T VISIT SERV 25 FOUNDATIO MINUTES [facility] KRISSY - OTHER 6 6 MEM HOSP INC OFFICE 85634 [place] TAI OUTPATIEN 6 6 YONY KRIS T NEW 30 MINUTES HOME [facility], 6 6 HOME INPATIENT HEALTH [facility] KRISSY - 6 6 [facility] OUTPATIEN [facility] T OFFICE 23824 [facility] 6 6 [place] TIMOTHY T VISIT INTERNAL 25 MED MINUTES HOSPITAL UNIVERSIT - 5 5 Y [facility] T OFFICE 95441 [facility] ARGUETA OUTPATIEN 5 5 MEDICAL T VISIT SERV 40 FOUNDATIO MINUTES N EMERGENCY 31454 TONIO JACKSON DEPT 5 5 PHYSICIAN U CAROL VISIT S, PLLC HIGH SEVERITY& THREAT FUNCJ EMERGENCY 71626 KRISSY 5 5 [facility] HIGH/URGE NT SEVERITY HOSPITAL KRISSY - 5 5 [facility] OUTPATIEN INC T HOME [facility], 5 5 HOME INPATIENT HEALTH AGENCY OFFICE 13069 [facility] OUTPATIEN 5 5 PHYSICIAN T VISIT S GROUP 15 MINUTES HOME [facility], 5 5 HOME INPATIENT HEALTH AGENCY OFFICE 95448 [place] BESSON OUTPATIEN 5 5 VALLEY TIMOTHY T VISIT INTERNAL 15 MED MINUTES HOSPITAL KRISSY - 5 5 [facility] OUTPATIEN INC T OFFICE 52136 [facility] SOPHIE TOD OUTPATIEN 5 5 PHYSICIAN T NEW 30 S GROUP MINUTES HOSPITAL KRISSY - 5 5 [facility] OUTPATIEN INC T HOSPITAL KRISSY - 5 5 [facility] OUTPATIEN INC T OFFICE 14319 [facility] AMADOR OUTPATIEN 5 5 MEDICAL T VISIT SERV 25 FOUNDATIO MINUTES N OFFICE 44133 [place] JAQUEZ OUTPATIEN 5 5 VALLEY HOL T VISIT INTERNAL 15 MEDI MINUTES HOSPITAL KRISSY - OTHER 5 5 MEM [facility] INC OFFICE 31686 [place] JAQUEZ OUTPATIEN 5 5 VALLEY HOL T VISIT INTERNAL 25 MEDI MINUTES HOME [facility], 5 5 HOME INPATIENT HEALTH AGENCY HOME [facility], 5 5 DIST OTHER HEALTH DEPT [facility] KRISSY - 5 5 MEM [facility] OUTPATIEN INC T HOME [facility], 5 5 DIST OTHER HEALTH DEPT [facility] HOME [facility], 5 5 HOME INPATIENT HEALTH AGENCY HOME [facility], 5 5 DIST OTHER HEALTH DEPT [facility] OFFICE 71872 MIN[facility] GODINEZ KRI OUTPATIEN 5 5 MEDICAL T VISIT SERV 40 FOUNDATIO MINUTES N EMERGENCY 64317 KRISSY 5 5 MEM HOSP DEPARTMEN INC T VISIT HIGH/URGE NT SEVERITY HOSPITAL KRISSY - 5 5 [facility] OUTPATIEN INC T HOME [facility], 5 5 DIST OTHER HEALTH DEPT [facility] HOME [facility], 5 5 DIST OTHER HEALTH DEPT [facility] HOME [facility], 5 5 HOME OUTPATIEN HEALTH T AGENCY OFFICE 52562 [place] BESSON OUTPATIEN 5 5 VALLEY TIMOTHY T VISIT INTERNAL 15 MED MINUTES HOME [facility], 5 5 DIST OTHER HEALTH DEPT [facility], 5 5 DIST OTHER HEALTH DEPT [facility] OFFICE 73424 [place] GUILLEN PERRY OUTPATIEN 5 5 MEDICAL T VISIT SERV 25 FOUNDATIO MINUTES N HOME [facility], 5 5 DIST OTHER HEALTH DEPT [facility], 5 5 HOME OUTPATIEN HEALTH T AGENCY OFFICE 28382 [place] HERBERT SIMEONI OUTPATIEN 5 5 MEDICAL T VISIT SERV 40 FOUNDATIO MINUTES N HOME [facility], 5 5 DIST OTHER HEALTH DEPT [facility] 4 4 HOME OUTPATIEN HEALTH T AGENCY [place] [facility], 4 4 DIST OTHER HEALTH DEPT [facility], 4 4 DIST OTHER HEALTH DEPT [facility] OFFICE 68439 [place] HERBERT KRI OUTPATIEN 4 4 MEDICAL T VISIT SERV 15 FOUNDATIO MINUTES N [place] [facility], 4 4 HOME OUTPATIEN HEALTH T [facility] KRISSY - 4 4 MEM HOSP OUTPATIEN INC T OFFICE 40194 [place] GUILLEN PERRY OUTPATIEN 4 4 MEDICAL T VISIT SERV 25 FOUNDATIO MINUTES [facility] KRISSY - 4 4 MEM HOS[facility] OUTPATIEN INC T HOME [facility], 4 4 DIST OTHER HEALTH 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 HOME [facility], 4 4 DIST OTHER HEALTH 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 HOME [facility], 4 4 HOME OUTPATIEN HEALTH T AGENCY HOME [facility], 4 4 DIST OTHER HEALTH 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 OFFICE 07801 [place] WILMER AMADOR OUTPATIEN 4 4 MEDICAL T VISIT SERV 25 FOUNDATIO MINUTES OFFICE 03362 [place] HERBERT ARGUETA OUTPATIEN 4 4 MEDICAL T VISIT SERV FOUNDATIO MINUTES HOSPITAL KRISSY - 4 4 MEM [facility] OUTPATIEN INC T HOME [facility], 4 4 DIST OTHER HEALTH 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 HOME [facility] 4 4 DIST OTHER HEALTH 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 HOME [facility], 4 4 HOME OUTPATIEN HEALTH T AGENCY HOME [facility], 4 4 DIST OTHER HEALTH 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 OFFICE 91183 [place] HERBERT ARGUETA OUTPATIEN 4 4 MEDICAL T VISIT SERV 40 FOUNDATIO MINUTES HOME [facility], 4 4 DIST OTHER HEALTH 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 OFFICE 27074 [facility] AMADOR OUTPATIEN 4 4 MEDICAL T VISIT SERV 25 FOUNDATIO MINUTES CRITICAL [facility] ACCESS 4 4 [facility] H[facility] HOME [facility], 4 4 DIST OTHER HEALTH 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 HOME [facility], 4 4 HOME OUTPATIEN HEALTH T AGENCY HOME [facility], 4 4 DIST OTHER HEALTH 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 OFFICE 63051 [place] EMERALD OUTPATIEN 4 4 VALLEY TIMOTHY T VISIT INTERNAL 15 MED MINUTES HOME [facility], 4 4 HOME OUTPATI HEALTH T AGENCY HOME [facility], 4 4 DIST OTHER HEALTH DEPT [facility] UNIVERSIT - 3 3 Y OUTPATI HOSPITAL T OFFICE 16151 MINH AMADOR OUTPATIEN 3 3 MEDICAL T VISIT SERV 25 FOUNDATIO MINUTES CRITICAL [facility], ACCESS 3 3 [facility] HOS CR[facility]ICAL [facility], ACCESS 3 3 [facility] HOS HOME [employer] [facility], 3 3 DIST OTHER HEALTH 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 OFFICE 90721 [place] HEBER OUTPATIEN 3 3 MEDICAL EJ T NEW 45 SERV MINUTES FOUNDATIO HOME [facility], 3 3 DIST OTHER HEALTH DEPT [facility] CRITICAL [facility] ACCESS 3 3 [facility] HOS HOME [employer] [facility], 3 3 HOME [facility] T AGENCY OFFICE 64873 [place] HERBERT ARGUETA OUTPATIEN 3 3 MEDICAL T VISIT SERV 40 FOUNDATIO MINUTES HOME [employer], 3 3 DIST OTHER HEALTH 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 OFFICE 07201 [facility] AM[facility]OR OUTPATIEN 3 3 MEDICAL T VISIT SERV 25 FOUNDATIO MINUTES HOME Payoff, 3 3 DIST OTHER HEALTH 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, ACCESS 3 3 [facility], ACCESS 3 3 [facility], ACCESS 3 3 [facility] [employer] HE[facility], 3 3 DIST OTHER HEALTH 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 OFFICE [id number] [place] BESSON OUTPATIEN 3 3 [facility] T VISIT INTERNAL 15 MED MINUTES HOME [facility], 3 3 [facility] T AGENCY HOME [facility], 3 3 DIST OTHER [facility]ALTH [facility] OFFICE [id number] ALLRAN JR YANG JR OUTPATIEN 3 3 SAMIR[facility] HOGAN T VISIT 15 MINUTES OFFICE [id number] CRISTIAN MURILLO CAR OUTPATIEN 3 3 MD T VISIT CONSULTIN 25 G SERV MINUTES OFFICE [id number] [place] OUTPATIEN 3 3 [facility] T VISIT INTERNAL 25 MED MINUTES CRITICAL [facility] ACCESS 3 3 [facility] - 3 3 [facility] ACCESS 3 3 [facility] - 3 3 [facility] - 3 3 [facility] 3 3 DIST OTHER HEALTH [facility] [place] - 3 3 [facility] 3 3 [facility], 3 3 DIST OTHER HEALTH DEPT [facility] KRISSY - 3 3 [facility] T OFFICE [id number] [place] OUTPATIEN 3 3 [facility] T [facility]ISIT [facility]NAL 15 MED MINUTES HOSPITAL [place] - 3 3 [facility] [place] - 3 3 [facility] HOME [facility], 3 3 DIST OTHER HEALTH [facility] SOD [facility] OFFICE [id number] CELIA YANG JR OUTPATIEN 3 3 SAMIRA SAMIRA T VISIT 15 MINUTES HOME [facility], 3 3 DIST OTHER HEALTH 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 HOME [facility], 3 3 HOME OUTPATIEN HEALTH T AGENCY [facility], ACCESS 3 3 [facility], 3 3 DIST OTHER HEALTH 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, ACCESS 3 3 [facility] OFFICE 53171 MINH AMADOR OUTPATIEN 3 3 MEDICAL T VISIT SERV 25 FOUNDATIO MINUTES OFFICE [id number] CELIA YANG JR OUTPATIEN 3 3 [facility] SAMIRA T VISIT 15 MINUTES [facility], ACCESS 3 3 [facility] HOME [facility], 3 3 DIST OTHER HEALTH DEPT [facility] CRITICAL [facility], ACCESS 3 3 [facility]OS CRITICAL [facility], ACCESS 3 3 [facility], 3 3 HOME OUTPATI [facility] OUTPATIEN INC T HOME [facility], 3 3 DIST OTHER HEALTH DEPT [facility]ERSIT [facility] [id number] [facility] [place] OUTPATIEN 2 2 MEDICAL T VISIT SERV 25 FOUNDATIO MINUTES HOME [facility], 2 2 HOME OUTPATIEN HEALTH T AGENCY OFFICE [id number] ALLRAN JR ALLRAN JR OUTPATIEN 2 2 SAMIRA SAMIRA T NEW 30 MINUTES HOME [facility], 2 2 DIST OTHER HEALTH DEPT [facility] HOME [facility], 2 2 HOME OUTPATIEN HEALTH T AGENCY [facility], ACCESS 2 2 [facility] CR[facility]ICAL [facility] ACCESS 2 2 [facility] CR[facility]ICAL [facility], ACCESS 2 2 [facility]OS CR[facility]ICAL [facility], ACCESS 2 2 [facility] - [facility] [address] [place] LUZMARIA OUTPATIEN 2 2 MEDICAL XOCHITL T VISIT SERV 15 FOUNDATIO MINUTES HOME [facility], 2 2 DIST OTHER HEALTH DEPT [facility] [id number] [place] HERBERT SIMEONI OUTPATIEN 2 2 MEDICAL T VISIT SERV 25 FOUNDATIO MINUTES HOME [facility], [facility] AGENCY OFFICE [address] [place] WILMER AMADOR OUTPATIEN 2 2 MEDICAL T VISIT SERV 25 FOUNDATIO MINUTES HOME [facility], 2 2 DIST OTHER HEALTH DEPT [facility] CRITICAL [facility], ACCESS 2 2 [facility]OS EMERGENCY 51972 [facility] 2 2 [facility] DEPARTMEN [facility] T VISIT CO HOS HIGH/URGE NT SEVERITY HOME [facility], 2 2 HOME OUTPATIEN HEALTH T AGENCY HOME [facility], 2 2 DIST OTHER HEALTH DEPT [facility] EMERGENCY 58799 [facility] DEPT 2 2 [facility] VISIT [facility] HIGH CO HOS SEVERITY[facility], - 2 2 [facility] OUTPATIEN [facility] T CO HOS EMERGENCY 69497 [facility] KEITAO 2 2 CO [facility] T VISIT MODERATE SEVERITY HOME [facility], 2 2 DIST OTHER HEALTH DEPT [facility], - 2 2 [facility] OUTPATIEN [facility] T CO HOS OFFICE 58299 [facility] OUTPATIEN 2 2 [place] FAMILY CAROL T VISIT MEDICINE 25 P MINUTES OFFICE [id number] [facility] FED OUTPATIEN 2 2 T NEW 20 MINUTES HOME [facility], 2 2 DIST OTHER HEALTH DEPT [facility], 2 2 DIST OTHER HEALTH DEPT [facility] - 2 2 [facility] INPATIENT [facility] CO HOS EMERGENCY 45073 [facility], 2 2 [facility] T VISIT CO HOS HIGH/URGE NT [facility] - 2 2 [facility] OUTPATIEN [facility] T CO HOS EMERGENCY 46086 [facility] HERRERA 2 2 CO [facility] T VISIT MODERATE SEVERITY OFFICE [address]43 [place] ENDEAN OUTPATIEN 2 2 MEDICAL XOCHITL T NEW 60 SERV MINUTES [facility] 24681 [facility] OUTPAT[facility] 2 2 [place] FAM[place] T VISIT MEDICINE 15 P MINUTES OFFICE 39531 [facility] OUTPATIEN 2 2 NURSE GWE T NEW 45 PRACTITIO MINUTES [facility] UNIVERSIT - 2 2 Y [facility] - 1 1 [facility] - 1 1 CO [facility] UNIVERSIT - 1 1 Y INPATIENT HOSPITAL OFFICE 32707 [facility] 1 1 MEDICAL T VISIT SERV 40 FOUNDATIO [facility] ANDREY - 0 0 [facility] UNIVERSIT [facility] 0 0 Y [facility] T OFFICE 67511 [facility] 0 0 [place] [facility] [facility] T VISIT MEDICINE 15 P MINUTES [facility] UN[facility] - 0 0 Y [facility] T OFF[facility] 22577 [facility] 0 0 [place] T VISIT 15 MINUTES OFFICE 98213 [facility] 0 0 [place] T VISIT 15 MINUTES OFFICE 69566 [facility] 0 0 [place] T VISIT 15 MINUTES [facility] UN[facility] - 0 0 Y [facility]
--- OUTSIDE RECORDS SUMMARY | 2017-09-02 14:55 | External Medical Summary Rpt | CCD ---
Author Author , JACQUELYN Organization JACQUELYN Address Unknown Phone [email or web address] Care Team Providers Care Contractor Broomcorn Threshing Name Role Phone [employer] Unavailable Unavailable INC, [employer] Unavailable Unavailable INC, [employer] ALLRAN JR SAMIRA, ALLRAN Unavailable Unavailable JR SAMIRA ALLRAN JR SAMIRA, ALLRAN Unavailable Unavailable JR SAMIRA JAQUEZ HOL, JAQUEZ Unavailable Unavailable HOL BERNERT EJ, BERNERT Unavailable Unavailable EJ BESSON TIMOTHY, BESSON Unavailable Unavailable TIMOTHY MCKEON, MCKEON Unavailable Unavailable MCKEON ALL, MCKEON ALL Unavailable Unavailable [facility] Unavailable Unavailable [facility], [facility] TAI KRIS, TAI Unavailable Unavailable KRIS MARYStephanie MAJOR IGN, Unavailable Unavailable MARYStephanie MAJOR IGN KYLEE HOGAN, Unavailable Unavailable KYLEE AVILA, Unavailable Unavailable GABRIEL MCELROY, [place] Unavailable Unavailable LILIBETH [facility], Unavailable Unavailable [facility] Unavailable Unavailable [place], [facility] Unavailable Unavailable [facility], [facility] [place] CORNEJO CRISTIAN, CORNEJO CRISTIAN Unavailable Unavailable [facility] Unavailable Unavailable AM[facility]UL[facility], [facility] Unavailable Unavailable THE BL[facility], [facility] ARIANE JR, ARIANE Unavailable Unavailable JR COOK LILIBETH, COOK LILIBETH Unavailable Unavailable KENNY ANTWAN, Unavailable Unavailable KENNY ANTWAN [facility] Un[facility] Unavailable [facility], [facility] Unavailable Unavailable [facility]OC, [facility] DISANTIS JEWELS, Unavailable Unavailable DISANTIS JEWELS ZIMMER FREDY, ZIMMER FREDY Unavailable Unavailable ENDEAN XOCHITL, ENDEAN Unavailable Unavailable XOCHITL [facility], EYE MAX Unavailable Unavailable FALLIS YONY, FALLIS Unavailable Unavailable YONY [facility] Unavailable Unavailable SERVBLUEGRAS, [facility] Unavailable Unavailable TRANSPORTATION SER, [facility] FEEBACK REE, FEEBACK Unavailable Unavailable REE YOVANY NICOLA, Unavailable Unavailable YOVANY NICOLA OLIVEIRA NAN, OLIVEIRA Unavailable Unavailable NAN TANESHA RHO, TANESHA Unavailable Unavailable RHO JUDAH SANTA, JUDAH SANTA Unavailable Unavailable SONY PRICE, Unavailable Unavailable SONY PRICE [facility] Unavailable Unavailable CARE, [facility] Unavailable Unavailable CARE, [facility] Unavailable Unavailable INC, [facility] Unavailable Unavailable HOSPITAL P, [facility] HOSPITAL P WALKER RADHA, WALKER RADHA Unavailable Unavailable [facility], Unavailable Unavailable [facility] DAVEY GWE, DAVEY Unavailable Unavailable GWE HOUSMAN KAMILA, HOUSMAN Unavailable Unavailable KAMILA [facility] Unavailable Unavailable CORPORATION, [facility] Unavailable Unavailable CORPORATION, [facility] Unavailable Unavailable CORPORATION[facility] Unavailable Unavailable GROUP PS, [facility] Unavailable Unavailable IM[facility]ING [facility], [facility] KERN CAR, KERN CAR [...] PEDRO MAJORS G, MAJORS G Unavailable Unavailable [facility] Unavailable Unavailable SERVICES, [facility] Unavailable Unavailable ASSOCIAT, [facility] MCKEMIE JR KAMILA, Unavailable Unavailable MCKEMIE JR KAMILA AIKEN CAROL, Unavailable Unavailable AIKEN CAROL [facility], TRAVEL DIRECTOR [facility] Unavailable Unavailable CO [facility], [facility] TRAVEL DIRECTOR [facility] AVILES KAMILA, AVILES KAMILA Unavailable Unavailable RONY LVEY, ROYN Unavailable Unavailable [facility], Unavailable Unavailable [facility] Unavailable Unavailable AMBULANCE SE, [facility] Unavailable Unavailable AMBULANCE SE, [facility] CRISTIAN CORNEJO MD Unavailable [...] EQUIPME SOTINGEANU CAROL, Unavailable Unavailable SOTINGEANU CAROL [facility] Unavailable Unavailable EMERGENCY PHYS, [facility], Unavailable Unavailable [facility] Unavailable Unavailable CLINIC, [facility] YOO SCO, YOO Unavailable Unavailable [facility] Unavailable Unavailable [facility]PITALS, [facility] Unavailable [facility]available SUPPLY, [facility] SUPPLY [facility] Unavailable Unavailable SUPPLY, [facility] SUPPLY [facility] Unavailable Unavailable MEDICINE , [facility], Unavailable Unavailable [facility] # Unavailable Unavailable [id number], [facility] # [id number] GUILLEN, GUILLEN Unavailable Unavailable GUILLEN PERRY, GUILLEN PERRY Unavailable [facility]available [facility] Unavailable Unavailable DEPT PROCESSING ARCHIVIST, [facility] DEPT PROCESSING ARCHIVIST [facility] Unavailable Unavailable AGENCY, [facility] MARIO SANTA, MARIO Unavailable Unavailable [facility]ANT[facility] Purpose Continuity of Care Document - 08-29-2010 through 2016 Problems Code Diagnosis DOS Provider Status N189 CHRONIC 08-25-2017 [facility] DISEASE ELDER CARE UNSPECIFIED K580 IRRITABLE 07-25-2017 [facility] BOWEL [facility]ALTH SYNDROME AGENCY WITH DIARRHEA M1990 UNSPECIFIED 07-25-2017 [facility] HOME HEALTH OSTEOARTHRI AGENCY TIS UNSPECIFIED SITE N8110 CYSTOCELE 07-25-2017 [facility] HOME UNSPECIFIED HEALTH AGENCY R159 FULL 07-25-2017 [facility] HOME INCONTINENC HEALTH E OF FECES AGENCY R3981 FUNCTIONAL 07-25-2017 [facility] URINARY HEALTH INCONTINENC AGENCY E I129 HYPERTENSIV 07-16-2017 [place] [facility] E CKD SERV W/STAGE 1-4 [facility] CKD OR UNS CKD M329 SYSTEMIC 07-16-2017 [place] [facility] L[place]US SERV ERYTHEMATOS [facility] US UNSPECIFIED M810 AGE-RELATED 07-16-2017 [place] [facility] OSTEOPOROSI [facility] S W/O CURRNT PATH FX N039 CHRONIC 07-16-2017 [place] [facility] NEPHRITIC SERV SYND W/UNS FOUNDATION MORPHOLOGIC CHANGES N183 CHRONIC 07-16-2017 [place] [facility] [place] SERV DISEASE FOUNDATION STAGE 3 MODERATE N250 RENAL 07-16-2017 [place] [facility] OSTEODYSTRO SERV PHY [facility]OUNDATION R809 PROTEINURIA 07-16-2017 [place] [facility] UNSPECIFIED FOUNDATION R8290 UNSPECIFIED 07-16-2017 [facility] FINDINGS IN INC URINE M069 RHEUMATOID 06-02-2017 [email or web address] ARTHRITIS CPXi UNSPECIFIED M3210 SYSTEMIC 06-02-2017 [facility] ERYTHEMATOS US ORGAN/SYS INVLV UNS M4000 POSTURAL 06-02-2017 [email or web address] CPXi SITE UNSPECIFIED M549 DORSALGIA 05-29-2017 [place] [facility] R079 CHEST PAIN 05-29-2017 [place] [facility]PEC[facility]IED [facility] IMAGING ASS R091 PLEURISY 05-29-2017 [facility] R69 ILLNESS 05-15-2017 [facility] UNSPECIFIED TRANSPORTAT ION SER U62583 UNSPECIFIED 04-30-2017 [place] [facility] ASTIGMATISM [facility]OUND[facility] BILATERAL H524 PRESBYOPIA 04-30-2017 [place] [facility] Z16155 OTHER LONG 04-30-2017 [place] [facility] [place]M SERV CURRENT FOUNDATION DRUG THERAPY Z961 PRESENCE OF 04-30-2017 [place] [facility] INTRAOCULAR [facility]OUND[facility] LENS G8929 OTHER 04-29-2017 [place] [facility] CHRONIC SERV PAIN FOUNDATION L853 XEROSIS 04-29-2017 [place] [facility] CUTIS SERV [facility] M545 LOW BACK 04-29-2017 [place] [facility] PA[place] [facility] R52 PAIN 04-29-2017 [place] [facility] UNSPECIFIED SERV FOUNDATION R531 WEAKNESS 04-29-2017 [place] [facility] E039 HYPOTHYROID 02-19-2017 [facility] ISM PHYSICIANS UNSPECIFIED LA M129 ARTHROPATHY 02-19-2017 [facility] UNSPECIFIED LA M3214 GLOMERULAR 02-19-2017 [facility] DISEASE IN PHYSICIANS SYS LUPUS LA ERYTHEMATOS US N390 URINARY 10-28-2016 [place] [facility] TRACT SERV INFECTION [facility]OUNDATION SITE NOT SPECIFIED [id number] NONDSPL FX 10-16-2016 [place] 4TH MEDICAL METATARSAL IMAGING ASS RT FT SUBSQT FX RTN [id number] UNS 10-16-2016 [facility] FRACTURE RT PHYSICIANS FOOT GROUP SUBSQT ENC FX ROUTINE HEAL [id number] DISPLACED 09-24-2016 [facility] 3RD TECHNOLOGIE METATARSAL S INC RT FT INIT CLOS FX [id number] NONDSPL FX 09-24-2016 [facility] 3RD [facility] METATARSAL INC RT FT INIT ENC CLOS FX [id number] DISPLACED 09-24-2016 [facility] FX 4TH TECHNOLOGIE METATARSAL S INC RT FT INIT CLOS FX [id number] NONDSPL FX 09-24-2016 [facility] 4TH [facility] METATARSAL INC RT FT INIT ENC CLOS FX [id number] NONDSPL FX 09-04-2016 [place] [facility] METATARSAL IMAGING ASS RT FT SUBSQT FX RTN J06199 PAIN IN 08-26-2016 [place] RIGHT FOOT MEDICAL IMAGING ASS Z1231 ENCOUNTER 08-20-2016 [place] SCREENING MEDICAL MAMMO MALIG IMAGING ASS NEOPLASM BREAST K449 DIAPHRAGMAT 07-17-2016 [facility] [place] [facility]IA RADIOLOGY W/O OBSTRUCTION OR GANGRENE R197 DIARRHEA 07-17-2016 [facility] UNSPECIFIED N EMERGENCY PHYS M359 SYSTEMIC 04-30-2016 [place] [facility] INVOLVEMENT SERV CONNECTIVE FOUNDATION TISSUE UNS Z5181 ENCOUNTER 04-30-2016 [place] [facility] FOR SERV THERAPEUTIC FOUNDATION DRUG LEVEL MONITORING B351 TINEA 04-16-2016 [facility] Y[facility]Y UNGUIUM A18834 PAIN IN 04-16-2016 [facility]Y LEFT FOOT H109 UNSPECIFIED 04-03-2016 [facility] CONJUNCTIVI INTERNAL TIS MEDI L930 DISCOID 02-21-2016 [facility] LUPUS PHYSICIANS ERYTHEMATOS LA US J069 ACUTE UPPER 01-24-2016 [facility] RESPIRATORY INTERNAL INFECTION MEDI UNSPECIFIED A499 BACTERIAL 01-18-2016 [place] [facility] INFECTION SERV UNSPECIFIED FOUNDATION K219 GASTRO-ESOP 12-20-2015 COMMUNITY H REFLUX ANESTH OF DISEASE THE BLUE WITHOUT ESOPHAGITIS M2570 OSTEOPHYTE 12-07-2015 [place] YONY UNSPECIFIED JOINT R799 ABNORMAL 11-27-2015 [facility] FINDING OF MEM HOSP BLOOD INC CHEMISTRY UNSPECIFIED R0609 OTHER FORMS 11-21-2015 [facility] OF [place] INTERNAL MED K210 GASTRO-ESOP 10-31-2015 [place] [facility] HAGEAL SERV REFLUX FOUNDATION DISEASE W/ ESOPHAGITIS R1310 DYSPHAGIA 10-11-2015 COMMUNITY UNSPECIFIED ANESTH OF THE BLUE E860 DEHYDRATION 10-02-2015 [facility] R112 NAUSEA WITH 10-02-2015 [facility] VOMITING [facility]ICIANS, UNSPECIFIED PLLC K589 IRRITABLE 09-18-2015 [facility] BOWEL PHYSICIANS SYNDROME GROUP WITHOUT DIARRHEA M8580 OTH SPEC 08-30-2015 [facility] D/O BONE PHYSICIANS DENSITY LA STRUCTURE UNS SITE Z23 ENCOUNTER 08-29-2015 [facility] FOR VALLEY IMMUNIZATIO INTERNAL N MED R109 UNSPECIFIED 08-24-2015 [place] ABDOMINAL MEDICAL PAIN IMAGING ASS R9431 ABNORMAL 08-16-2015 [facility] P N959 UNSPECIFIED 08-15-2015 [facility] INC PERIMENOPAU SYDNI DISORDER N57577 ENCOUNTER 08-15-2015 [place] FOR MEDICAL SCREENING IMAGING ASS FOR OSTEOPOROSI S Z780 ASYMPTOMATI 08-15-2015 [place] C MEDICAL MENOPAUSAL IMAGING ASS STATE Z803 FAMILY 08-15-2015 [place] HISTORY OF MEDICAL MALIGNANT IMAGING ASS NEOPLASM OF BREAST 3829 UNSPECIFIED 08-07-2015 [facility] OTITIS [facility] MEDIA INTERNAL MEDI 32904 ESOPHAGEAL 08-07-2015 [facility] REFLUX VALLEY INTERNAL MEDI 5853 CHRONIC 07-28-2015 [facility] [place] [place] [facility] DISEASE INC STAGE III (MODERATE) 5990 URINARY 07-28-2015 [facility] [place] [place] [facility] INFECTION INC SITE NOT SPECIFIED 80106 07-28-2015 [facility]SP[facility] ION SER 5641 IRRITABLE 07-25-2015 [facility] SYNDROME AGENCY 99359 UNS PROLAPS 07-25-2015 [facility] W/O MENTION AGENCY UTERN PROLAPS 13162 UNSPECIFIED 07-25-2015 [facility] ARTHROPATHY AGENCY SITE UNSPECIFIED 7242 LUMBAGO 07-25-2015 [facility] INTERNAL MEDI 28899 FULL 07-25-2015 [facility] INCONTINENC HEALTH E OF FECES AGENCY 07278 UNSPECIFIED 07-25-2015 [facility] URINARY HEALTH INCONTINENC AGENCY E V7610 UNSPECIFIED 07-25-2015 [facility] [place] [facility] SCREENING INTERNAL MEDI V8281 SPECIAL 07-25-2015 [facility] SCREENING VALLEY FOR INTERNAL OSTEOPOROSI MEDI S 7100 SYSTEMIC 07-11-2015 [facility] [place] [address] OSTEOARTHRO 07-11-2015 [facility] S UNSPEC HEALTH DEPT WHETHER PROCESSING ARCHIVIST GEN/LOC UNSPEC SITE 2449 UNSPECIFIED 05-31-2015 [facility] [place]YPOT[place] 30942 OTHER 04-25-2015 [place] [facility] CHRONIC SERV PAIN FOUNDATION 52741 UNSPECIFIED 04-19-2015 [facility] P [place] 7802 SYNCOPE AND 04-19-2015 [facility] [place] [facility] [place] [address] NAUSEA 04-19-2015 [facility] [place] [facility] [place] [address] DIAB W/O 03-30-2015 [facility] COMP TYPE STATES II/UNS NOT MEDICAL STATED SUPPLY UNCNTRL 7140 RHEUMATOID 03-01-2015 [place] [address] UNSPECIFIED 02-22-2015 [facility] ARTHROPATHY INTERNAL MULTIPLE MED SITES 62556 KYPHOSIS 02-06-2015 [facility] [email or web address] POSTURAL 54755 HTN CKD UNS 01-09-2015 [place] [facility] W/CKD SERV STAGE I FOUNDATION THRU STAGE IV/UNS 5829 CHRONIC GLN 01-09-2015 [place] [facility] W/UNSPEC SERV PATHOLOGICA FOUNDATION L LESION KIDNEY 4659 ACUTE URIS 11-29-2014 [place] [facility] OF SERV UNSPECIFIED FOUNDATION SITE 1101 DERMATOPHYT 10-12-2014 [facility] FED OSIS OF NAIL 7038 OTHER 10-12-2014 [facility] FED SPECIFIED DISEASE OF NAIL 7295 PAIN IN 10-12-2014 [facility] FED SOFT TISSUES OF LIMB 92470 OBSTRUCTIVE 09-16-2014 [facility] APNEA MEDICAL EQUIPME 14222 OTHER 09-16-2014 [facility] AND HOME MEDICAL RESPIRATORY EQUIPME ABNORMALITI ES 4011 ESSENTIAL 08-15-2014 [place] [facility] HYPERTENSIO SERV N, BENIGN FOUNDATION 7910 PROTEINURIA 08-15-2014 [place] [facility]OUNDATION 7919 OTHER 08-15-2014 [facility] NONSPECIFIC MEM [facility] FINDING INC EXAMINATION OF URINE 02883 DYSPHAGIA 08-11-2014 [facility] UNSPECIFIED MEM HOSP INC 60578 AFTER-CATAR 07-28-2014 [facility] [facility] VISION 59829 NEPHRITIS&N 05-31-2014 [place] [facility] EPHROPATHY- SERV OTH SPEC FOUNDATIO PATH LES DZ CE 7813 LACK OF 03-25-2014 [facility] COORDINATIO HOME N MEDICAL EQUIPME 17557 ANEMIA OF 01-20-2014 [place] [facility]ICAL OTHER SERV CHRONIC FOUNDATIO DISEASE 2724 OTHER AND 12-07-2013 [facility] UNSPECIFIED VALLEY INTERNAL HYPERLIPIDE MED BRIDGETTE 3814 NONSUPPRATV 12-07-2013 [facility] OTITIS [facility] MEDIA NOT INTERNAL SPEC MED ACUT/CHRON 4019 UNSPECIFIED 12-07-2013 [facility] ESSENTIAL [facility] HYPERTENSIO INTERNAL N MED 4720 CHRONIC 12-07-2013 [facility] RHINITIS [facility] INTERNAL MED 7851 PALPITATION 10-20-2013 [facility], S TRAVEL [place] 90380 HYPERPARATH 10-13-2013 [facility], YROIDISM TRAVEL DIRECTOR UNSPECIFIED [facility] HOS 2689 UNSPECIFIED 10-13-2013 [facility], VITAMIN D TRAVEL DIRECTOR DEFICIENCY [place] [facility] 10233 ANEMIA IN 10-13-2013 [facility], CHRONIC TRAVEL DIRECTOR KIDNEY [place] [place] DISEASE HOS 3384 CHRONIC 09-27-2013 [place] [facility] PAIN [facility] SYNDROME FOUNDATIO 7226 DEGENERATIO 09-27-2013 [place] [facility] N SERV INTERVERTEB FOUNDATIO RAL DISC SITE UNSPEC 82353 OTHER 06-30-2013 [facility], ABNORMAL TRAVEL DIRECTOR FINDING [facility]RE[facility] L EXAM BREAST 98479 LUMP OR 06-25-2013 [place] [facility] IN RADIOLOGY BREAST ASSOCIAT 1103 DERMATOPHYT 06-07-2013 [facility] OSIS OF [place] GROIN AND INTERNAL PERIANAL MED AREA 4555 EXTERNAL 05-05-2013 [facility] HEMORRHOIDS SAMIRA WITH OTHER COMPLICATIO N 2722 MIXED 05-04-2013 C[facility] CORNEJO HYPERLIPIDE BRIDGETTE CONSULTING SERV 11784 CORONARY 05-04-2013 C[facility]IAN HAYNES MD OS[facility] [place] CONSULTING CORONARY SERV ARTERY V7281 PRE-OPERATI 05-04-2013 CRI[facility]IAN BARAJAS MD CARDIOVASCU CONSULTING LAR SERV EXAMINATION 59705 DYSFNCT 04-23-2013 [facility] STGES/AROUS AL FRM SLEEP 51590 HYPOXEMIA 04-23-2013 [facility] V8533 BODY MASS 04-23-2013 [facility] 33.0-33.9 HOSPITAL ADULT 5859 CHRONIC 04-19-2013 [facility], KIDNEY TRAVEL DIRECTOR DISEASE [place] UNSPECIFIED HOS 22310 UNSPECIFIED 04-16-2013 [facility] OSTEOPOROSI S 27370 CHEST PAIN 04-16-2013 [facility] UNSPEC[facility]IED [facility]OLOGY CLINIC 4160 PRIMARY 04-14-2013 [facility] HYPERTENSIO HOSPITAL N 23950 PRECORDIAL 04-14-2013 [facility] 17483 OTHER 04-14-2013 [facility] [place] NONSPECIFIC RADIOLOGY ABNORMAL FINDING OF LUNG FIELD 30141 SHORTNESS 03-24-2013 [facility] 7823 EDEMA 03-09-2013 CRISTIAN CORNEJO [place] CONSULTING SRV 12037 OTHER CHEST 03-01-2013 [facility] PAIN [place] INTERNAL MED 88870 OBESITY, 02-27-2013 [facility] UNSPECIFIED EMERGENCY SERVICES 66706 [facility]N [facility]2013 [facility] DZ STAGE I-IV/UNS 4556 UNSPEC 02-26-2013 [place] [facility] AN[facility]HES[facility] WITHOUT GROUP PS MENTION COMPLICATIO N 4558 UNSPECIFIED 02-26-2013 [facility] WITH OTHER COMPLICATIO N V641 SURG/OTH 02-26-2013 [facility] PROC NOT [facility] BECAUSE CONTRAINDIC ATION 4550 INTERNAL 02-10-2013 [facility]TOYIN JR HEMORRHOIDS SAMIRA WITHOUT MENTION COMP 485 BRONCHOPNEU 01-19-2013 [facility] [place] ORGANISM INTERNAL UNSPECIFIED MED 37042 OTHER 01-19-2013 [facility] MALAISE AND [place] FATIGUE INTERNAL MED 4293 CARDIOMEGAL 01-18-2013 [place] Y RADIOLOGY ASSOCIAT 27023 OTHER 01-18-2013 [place] DISEASES OF RADIOLOGY LUNG NOT ASSOCIAT ELSEWHERE CLASSIFIED 6100 SOLITARY 01-13-2013 [facility], CYST OF TRAVEL [place] 50383 UNSPECIFIED 01-06-2013 [facility], ABNORMAL TRAVEL DIRECTOR [place]AMMO[place] 55040 DYSPHAGIA 12-09-2012 [facility], DUE TO TRAVEL DIRECTOR CEREBROVASC [place] [place] ULAR HOS DISEASE 5533 DIAPHRAGMAT 12-09-2012 [facility], EDUARD W/O TRAVEL DIRECTOR MENTION [place] CO OBSTRUCTION HOS /GANGREN 06963 OTHER 12-08-2012 [place] SPECIFIED RADIOLOGY DISORDERS ASSOCIAT OF BREAST V1589 OTH SPEC 12-08-2012 [facility], PERS HX TRAVEL DIRECTOR PRESENTING NADREY CO HAZARDS HOS HEALTH OTH V163 FAMILY 12-08-2012 [facility], HISTORY OF TRAVEL DIRECTOR MALIGNANT [place] CO NEOPLASM OF HOS BREAST V7611 SCREENING 12-08-2012 [facility], MAMMOGRAM TRAVEL DIRECTOR FOR [facility] CO HIGH-RISK HOS PATIENT V7612 OTHER 12-08-2012 [place] SCREENING RADIOLOGY MAMMOGRAM ASSOCIAT 7213 LUMBOSACRAL 12-01-2012 [facility] SPONDYLOSIS WITHOUT MYELOPATHY 74510 DISPLCMT 12-01-2012 [place] [facility] LUMBAR SERV INTERVERT FOUNDATIO DISC W/O MYELOPATHY 45416 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 [facility] OSACRAL INTERVERTEB RAL DISC 52932 OTHER&UNSPE 12-01-2012 [facility] DISORDER OF LUMBAR REGION 08867 DIVERTICULO 11-17-2012 [facility] SIS OF MEM HOSP COLON INC 00664 OTHER 11-17-2012 COMM[facility]ITY SYMPTOMS ANESTH OF INVOLVING THE BLUE DIGESTIVE SYSTEM OTHER V160 FM HX 11-17-2012 [facility] MALIGNANT [facility]OS[facility] NEOPLASM INC GASTROINTES TINAL TRACT V7651 SPECIAL 11-17-2012 [facility] SCREENING MEM HOSP FOR INC MALIGNANT NEOPLASMS COLON 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 [facility] THESIS 66323 NEPHROTIC 11-05-2012 [place] [facility] SYND W/OTH SERV PATHAL LES FOUNDATIO DZ CLASS ELSW 21536 MUSCLE 11-05-2012 [place] [facility] WEAKNESS SERV (GENERALIZE FOUNDATIO D) 4553 EXTERNAL 10-19-2012 [facility] HEMORRHOIDS SAMIRA WITHOUT MENTION COMP 7856 ENLARGEMENT 10-05-2012[place] OF [facility] RADIOLOGY NODES ASSOCIAT 7866 SWELLING, 10-05-2012 [facility], MASS, OR TRAVEL DIRECTOR LUMP IN [facility] CHEST HOS V4576 ACQUIRED 10-05-2012 [facility], ABSENCE OF TRAVEL DIRECTOR ORGAN, LUNG [facility] HOS V4589 OTHER 09-25-2012 [facility], POSTSURGICA TRAVEL DIRECTOR L STATUS [facility] OTHER HOS V571 OTHER 09-24-2012 [facility], PHYSICAL TRAVEL DIRECTOR THERAPY [facility] HOS 4421 ANEURYSM OF 09-21-2012 [facility] ARTERY 40836 OSTEOARTHRO 09-03-2012 [place] [facility] [place] UNSPEC SERV WHETHER FOUNDATIO GEN/LOC SHLDR REGION 94837 OSTEOARTHRO 09-03-2012 [place] [facility] SIS UNSPEC SERV WHETHER FOUNDATIO GEN/LOC LOWER LEG 37273 EFFUSION OF 09-03-2012 [place] [facility] L[place] LEG SERV JOINT FOUNDATIO 41891 PAIN IN 09-03-2012 [place] [facility] JOINT, SERV SHOULDER FOUNDATIO REGION 29737 PAIN IN 09-03-2012 [place] [facility] JOINT, SERV LOWER LEG FOUNDATIO 7249 OTHER 09-03-2012 [place] [facility] UNSPECIFIED SERV BACK FOUNDATIO DISORDER 15011 EXOSTOSIS 09-03-2012 [place] [facility] OF SERV UNSPECIFIED FOUNDATIO SITE 7384 ACQUIRED 09-03-2012 [place] [facility] SPONDYLOLIS SERV THESIS FOUNDATIO 31050 DEHYDRATION 08-04-2012 [facility], TRAVEL DIRECTOR [place] HOS 5589 OTH&UNSPEC 08-04-2012 [facility], NONINFECTIO TRAVEL DIRECTOR US [facility] GASTROENTER HOS ITIS&COLITI S 83324 VOMITING 08-04-2012 [facility], ALONE TRAVEL DIRECTOR [facility] HOS 4580 ORTHOSTATIC 06-19-2012 [facility] HOSPITAL HYPOTENSION 5849 ACUTE 06-19-2012 [facility] KIDNEY [facility]OSPITAL FAILURE UNSPECIFIED 2720 PURE 06-05-2012 [facility], HYPERCHOLES TRAVEL DIRECTOR TEROLEMIA [facility] HOS 586 UNSPECIFIED 04-14-2012 CRISTIAN CORNEJO RENAL MD FAILURE CONSULTING SRV 78635 OTH & UNS E 04-08-2012 [facility], COLI TRAVEL DIRECTOR INFECTION [facility] CLASS ELSW HOS UNS SITE 2762 ACIDOSIS 04-08-2012 [facility], TRAVEL DIRECTOR [facility] HOS 2767 HYPERPOTASS 04-08-2012 [facility], EMIA TRAVEL DIRECTOR [facility] HOS 4589 UNSPECIFIED 04-07-2012 [facility] HYPOTENSION 7862 COUGH 04-07-2012 [facility] 05708 ANEURYSM OF 03-23-2012 [place] [facility] OTHER SERV [facility] ARTERY 65085 UNSPECIFIED 02-13-2012 [facility] P 6256 FEMALE 02-12-2012 [place] E [address] URGE 02-12-2012 [facility] [place] [address] URINARY 02-12-2012 [place] [address] URGENCY OF 02-12-2012 [facility] NURSE URINATION PRACTITIONE R GR 7336 TIETZES 07-10-2011 [facility], DISEASE TRAVEL DIRECTOR [facility] HOS 75444 UNSPECIFIED 01-03-2011 [facility] PYELONEPHRI TIS 6826 CELLULITIS 01-03-2011 [facility] P EXCEPT FOOT 6954 LUPUS 01-03-2011 [place] [facility] ERYTHEMAT[place] SERV US [facility]OUNDAT[facility] 07670 SWELLING OF 01-03-2011 [place] [facility] [place] [facility] 7931 NONSPEC 01-03-2011 [place] [facility] [place] OTH EXAM [facility] BODY STRUCT LUNG FIELD 50676 CRAMP OF 11-06-2010 [facility] 56208 DIARRHEA 11-06-2010 [facility] V5865 LONG-TERM 11-06-2010 [facility] USE OF HOSPITAL STEROIDS V5869 LONG-TERM 11-06-2010 [facility] (CURRENT) HOSPITAL USE OF OTHER MEDICATIONS V5883 ENCOUNTER 11-06-2010 [facility] FOR HOSPITAL THERAPEUTIC DRUG MONITORING 45510 NAUSEA WITH 10-02-2010 [facility] V7260 LABORATORY 10-02-2010 [facility] UNSPECIFIED 4619 ACUTE 09-27-2010 [facility] SINUSITIS, FAMILY UNSPECIFIED MEDICINE P 04194 NUCLEAR 09-05-2010 [facility] 3669 UNSPECIFIED 09-04-2010 [facility] 7850 UNSPECIFIED 08-29-2010 [facility] TACHYCARDIA Medications Na ND Rx Da Fi [...] AT 60 15 15 FA E 1 CO SA 20 LY RA 0 H MG [...] G TA 10 BL 04 ET 93 Procedures Procedure DOS Code Location Performer Comment DISPBL T4535 [facility] HOME HOME ELD/GUARD HEALTH HEALTH /PAD/UNDG AGENCY AGENCY RMNT INCONT EA COLLECTIO 19944 [facility] N [facility]OUS [facility] BLOOD INC INC VENIPUNCT URE CULTURE 94568 [facility] RE[facility] BACTERIAL 7 [facility] INC INC QUANTTATI VE COLONY COUNT URINE CREATININ 01247 [facility] REY E OTHER 7 [facility] SOURCE INC INC RENAL 27008 [facility] REY FUNCTION 7 [facility] PANEL INC INC URNLS DIP 25442 [facility] REY 7 [facility] STICK/TAB INC INC LET REAGENT AUTO MICROSCOP Y PROTEIN 74948 [facility] REY XCPT 7 [facility] REFRACTOM INC INC ETRY SERUM PLASMA/WH L BLD BLOOD 97196 [facility] RE[facility] COUNT 7 [facility] COMPLETE INC INC AUTO&AUTO DIFRNTL WBC PWR WC E2381 [facility] PNEUMATIC 7 DRIVE CORPORATI CORPORATI WHEEL ON ON TIRE REPL ONLY EACH PWR WC E2382 [facility] TUBE 7 PNEUMATIC CORPORATI CORPORATI DRIVE ON ON WHEEL TIRE REPL EACH RADIOLOGI 38829 [place] C EXAM 7 MEDICAL CHEST 2 IMAGING VIEWS ASS FRONTAL&L ATERAL NONEMERGE A0130 FEDERATED FEDERATED NCY 7 TRANS TRANSPORT TRANSPORT SERVBLUEG ATION: ATION SER NATA Carrasquillo VAN DISPBL T4535 [facility] HOME HOME ELD/GUARD HEALTH HEALTH /PAD/UNDG AGENCY AGENCY RMNT INCONT EA NONEMERGE A0130 FEDERATED FEDERATED NCY 7 TRANS TRANSPORT TRANSPORT SERVBLUEG ATION: ATION SER NATA AKBAR NONEMERGE A0130 FEDERATED FEDERATED NCY 7 TRANS TRANSPORT TRANSPORT SERVBLUEG ATION: ATION SER NATA STROUDI 96211 [place] ZED 7 MEDICAL JR OPHTHALMI SERV C IMAGING FOUNDATIO RETINA N VISUAL 14310 [place] FIELD XM 7 MEDICAL JR UNI/BI SERV W/INTERP FOUNDATIO EXTENDED N EXAM NONEMERGE A0130 FEDERATED FEDERATED NCY 7 TRANS TRANSPORT TRANSPORT SERVBLUEG ATION: ATION SER NATA Carrasquillo VAN DISPBL T4535 [facility] 7 HOME HOME ELD/GUARD HEALTH HEALTH /PAD/UNDG AGENCY AGENCY RMNT INCONT EA BLOOD 63831 COMBINED COMBINED COUNT 7 PHYSICIAN PHYSICIAN COMPLETE S LA S LA AUTO&[place] [address] COMBINED COMBINED TRIIODOTH 7 PHYSICIAN PHYSICIAN YRONINE S LA S LA T3 [place] [address] COMBINED COMBINED THYROID 7 PHYSICIAN PHYSICIAN STIMULATI [place] [address] COMBINED COMBINED FREE 7 PHYSICIAN PHYSICIAN THYROXINE S LA S LA COMPREHEN 10974 COMBINED COMBINED SIVE 7 PHYSICIAN PHYSICIAN METABOLIC S LA S LA PANEL LIPID 54971 COMBINED COMBINED PANEL 7 PHYSICIAN PHYSICIAN S LA S LA PWR WC E2366 [facility] ACSS 7 [facility] CORPORATI CORPORATI CHRGR 1 ON ON MODE W/ONLY 1 B[facility] PROTEIN 81890 [place] TOTAL 7 HEALTHCAR HEALTHCAR XCPT E E REFRACTOM [facility] ETRY URINE URNLS DIP 62742 [place] [facility] 7 HEALTHCAR HEALTHCAR STICK/TAB E E LET [facility] REAGENT AUTO MICROSCOP Y NONEMERGE A0130 FEDERATED FEDERATED NCY 7 TRANS TRANSPORT TRANSPORT SERVBLUEG ATION: ATION SER NATA WHEELCHAI R VAN CREATININ 61033 [facility] E OTHER 7 HEALTHCAR HEALTHCAR SOURCE E E [facility] COLLECTIO 12644 [place] N VENOUS 7 HEALTHCAR HEALTHCAR BLOOD E E VENIPUNCT [facility] URE SEDIMENTA 63607 [place] TION RATE 7 HEALTHCAR HEALTHCAR RBC E E AUTOMATED [facility] FLUORESCE 90591 [place] NT 7 HEALTHCAR HEALTHCAR NONNFCT E E AGT ANTB [facility] SCREEN EA ANTIBODY DXA BONE 15284 [place] GUILLEN DENSITY 7 MEDICAL STUDY 1/> SERV SITES FOUNDATIO AXIAL N SKEL C-REACTIV 64269 [place] E PROTEIN 7 HEALTHCAR HEALTHCAR E E [facility] COMPREHEN 18472 [place] [facility] SIVE 7 HEALTHCAR HEALTHCAR METABOLIC E E PANEL [facility] COMPLEMEN 01315 [place] T ANTIGEN 7 HEALTHCAR HEALTHCAR EACH E E COMPONENT [facility] BLOOD 84166 [place] COUNT 7 HEALTHCAR HEALTHCAR COMPLETE E E AUTO&AUTO [facility] DIFRNTL WBC DISPBL T4535 [facility] 7 HOME HOME ELD/GUARD HEALTH HEALTH /PAD/UNDG AGENCY AGENCY RMNT INCONT EA NONEMERGE A0130 FEDERATED FEDERATED NCY 6 TRANS TRANSPORT TRANSPORT SERVBLUEG ATION: ATION SER NATA GERALDOGarrett Foreign NAOMIE REYS DIP 54610 [facility]Y [facility] STICK/TAB INC INC LET REAGENT AUTO MICROSCOP Y PROTEIN 57061 KRISSY KRISSY XCPT 6 [facility] REFRACTOM INC INC ETRY SERUM PLASMA/WH L BLD CULTURE 32839 KRISSYELVI REY BCT 6 [facility] [place] [place] [facility] ISOL&PRSM INC INC PTV ID ISOLATE EA URINE RENAL 92619 KRISSYELVI REY FUNCTION 6 [facility] PANEL INC INC RADEX 38331 [place] FOOT 6 MEDICAL COMPLETE IMAGING MINIMUM 3 ASS VIEWS CULTURE 78289 [facility]SY REY BACTERIAL 6 [facility] INC INC QUANTTATI VE COLONY COUNT URINE COLLECTIO 28986 [facility] REY N VENOUS 6 [facility] BLOOD INC INC VENIPUNCT URE SUSCEPTIB 79187 [facility] REY LTY STDY 6 [facility] ANTIMICRB INC INC IAL MICRO/AGA R DILUTJ CREATININ 29463 KR[facility]SY REY E OTHER 6 [facility] SOURCE INC INC BLOOD 78419 KR[facility]SY CASTROON COUNT 6 [facility] COMPLETE INC INC AUTO&AUTO DIFRNTL WBC WALKING L4360 [facility] BOOT 6 TECHNOLOG TECHNOLOG PNEUMATC IES INC IES INC &/ VACUUM PREFAB CUSTM FIT ORTHOTIC 58638 KRISSY REY MGMT&NICK 6 [facility] [place] UXTR INC INC LXTR&/TRN K EA 15 RADEX 18090 [place] ALL FOOT 6 MEDICAL COMPLETE IMAGING MINIMUM 3 ASS VIEWS WALKER E0135 [place] FOLDING 6 HOME HOME ADJUSTABL MEDICAL MEDICAL E OR EQUIPME EQUIPME FIXED HEIGHT CAST Q4038 [facility] HODGE MAD SUPPLIES 6 PHYSICIAN SHORT LEG S GROUP CAST ADULT FIBERGLAS S RADEX 23285 [place] ALL FOOT 6 MEDICAL COMPLETE IMAGING MINIMUM 3 ASS VIEWS COMPUTER- 74317 [place] AIDED 6 MEDICAL ANTWAN DETECTION IMAGING ASS SCREENING MAMMOGRAP HY NONEMERG A0120 FEDERATED FEDERATED TRNSPRT: 6 MINI-BUS TRANSPORT TRANSPORT MTN ATION SER ATION SER AREA/OTH SYS SCREENING G0202 [place] 6 MEDICAL ANTWAN MAMMOGRAP IMAGING HY MARIA DEL ROSARIO ASS INCL CAD WHEN PERFORMD BLOOD 16155 [facility] COUNT 6 Y Y COMPLETE [facility] AUTOMATED COMPLEMEN 12850 [facility] T ANTIGEN 6 Y Y EACH [facility] COMPONENT C-REACTIV 95003 [facility] E PROTEIN 6 Y Y [facility] CREATININ 57037 [facility] E OTHER 6 Y Y SOURCE [facility] COLLECTIO 33078 [facility] N VENOUS 6 Y Y BLOOD [facility] VENIPUNCT URE FLUORESCE 91195 [facility] NT 6 Y Y NONNFCT [facility] AGT ANTB SCREEN EA ANTIBODY SEDIMENTA 23828 [facility] TION RATE 6 Y Y RBC [facility] AUTOMATED URNLS DIP 11007 [facility] 6 Y Y STICK/TAB [facility] LET [place] [address] [facility] BLOOD/URI 6 Y Y C ACID [facility] NONEMERGE A0130 FEDERATED FEDERATED NCY 6 TRANS TRANSPORT TRANSPORT SERVBLUEG ATION: ATION SER NATA WHEELSAMIRAI R VAN RENAL 26095 [facility] UNIVERS FUNCTION 6 Y Y PANEL [facility] PROTEIN 62066 [facility] TOTAL 6 Y Y XCPT [facility] REFRACTOM ETRY URINE HEPATIC 41418 [facility] FUNCTION 6 Y Y PANEL [facility] CALCIUM 81132 [facility] IONIZED 6 Y Y HOSPITAL HOSPITAL 25 20529 [facility] HYDROXY 6 Y Y INCLUDES HOSPITAL HOSPITAL FRACTIONS IF PERFORMED CREATINE 51099 [facility] KINASE 6 [place] [address] [facility] PARATHORM 6 Y Y ONE HOSPITAL [facility] INCONTINE T4541 [facility] NCE 6 HOME HOME PRODUCT HEALTH HEALTH DISPOSABL AGENCY AGENCY E UNDPAD LARGE EA ADLT SZD T4526 [facility] DISPBL 6 HOME HOME INCONT HEALTH HEALTH [place] [address] [place] TANESHA ABDOMEN & 6 RADIOLOGY RHO PELVIS W/O CONTRAST MATERIAL NONEMERGE A0130 FEDERATED FEDERATED NCY 6 TRANS TRANSPORT TRANSPORT SERVBLUEG ATION: ATION SER NATA SANDRA Carrasquillo VAN DISPBL T4535 [facility] 6 HOME HOME ELD/GUARD HEALTH HEALTH /PAD/UNDG AGENCY AGENCY RMNT INCONT EA BLOOD 54578 [facility] COUNT 6 Y Y COMPLETE HOSPITAL HOSPITAL AUTO&AUTO DIFRNTL WBC NONEMERGE A0130 FEDERATED FEDERATED NCY 6 TRANSPORT TRANSPORT TRANSPORT ATION: ATION SER ATION SER SANDRA AKBAR URNLS DIP 38652 [facility] UNIVERS 6 Y Y STICK/TAB HOSPITAL HOSPITAL LET REAGENT AUTO MICROSCOP Y PROTEIN 96522 [facility] TOTAL 6 Y Y XCPT [facility] REFRACTOM ETRY URINE C-REACTIV 72136 [facility] E PROTEIN Y Y HOSPITAL HOSPITAL COMPREHEN 28770 [facility] SIVE 6 Y Y METABOLIC [facility] PANEL COMPLEMEN 46673 [facility] T ANTIGEN 6 Y Y EACH HOSPITAL HOSPITAL COMPONENT SEDIMENTA 15797 [facility] TION RATE 6 Y Y RBC HOSPITAL [facility] AUTOMATED FLUORESCE 28018 [facility] NT 6 Y Y NONNFCT HOSPITAL [facility] AGT ANTB SCREEN EA ANTIBODY COLLECTIO 03641 [facility] N VENOUS 6 Y Y BLOOD [facility] VENIPUNCT URE CREATININ 91815 [facility] E OTHER 6 Y Y SOURCE HOSPITAL HOSPITAL DEBRIDEME 96771 [facility] TAI NT NAIL 6 YOYN KRIS ANY METHOD 6/> NONEMERGE A0130 FEDERATED FEDERATED NCY 6 TRANSPORT TRANSPORT TRANSPORT ATION: ATION SER ATION SER SANDRA Foreign AKBAR NONEMERGE A0130 FEDERATED FEDERATED NCY 6 TRANSPORT TRANSPORT TRANSPORT ATION: ATION SER ATION SER SANDRA Foreign TROYS DIP 07409 [facility] REY 6 [facility] STICK/TAB INC INC LET REAGENT AUTO MICROSCOP Y DISPBL T4535 [facility] 6 HOME HOME ELD/GUARD HEALTH HEALTH /PAD/UNDG AGENCY AGENCY RMNT INCONT EA BLOOD 64560 COMBINED COMBINED COUNT 6 PHYSICIAN PHYSICIAN COMPLETE S LA S LA AUTO&[place] [address] COMBINED COMBINED THYROID 6 PHYSICIAN PHYSICIAN STIMULATI S LA S LA NG HORMONE TSH COMPREHEN 16852 COMBINED COMBINED SIVE 6 PHYSICIAN PHYSICIAN METABOLIC S LA S LA PANEL NONEMERGE A0130 FEDERATED FEDERATED NCY 6 TRANSPORT TRANSPORT TRANSPORT ATION: ATION SER ATION SER SANDRA Foreign AKBAR DEBRIDEME 39178 [facility] TAI NT NAIL 6 YONY KRIS ANY METHOD 6/> NONEMERG A0120 FEDERATED FEDERATED TRNSPRT: 6 MINI-BUS TRANSPORT TRANSPORT MTN ATION SER ATION SER AREA/OTH SYS REPR/SRVC K0739 [facility] HOVEROUND DME NOT 6 O2 RQR CORPORATI CORPORATI TECH ON ON CMPNT PER 15 MINS NONEMERGE A0130 FEDERATED FEDERATED NCY 6 TRANSPORT TRANSPORT TRANSPORT ATION: ATION SER ATION SER ARTHURCLAUDINE Foreign AKBAR NONEMERGE A0130 FEDERATED FEDERATED NCY 6 TRANSPORT TRANSPORT TRANSPORT ATION: ATION SER ATION SER GERALDOGarrett DAVIS DIP 54125 [facility] REY 6 [facility] STICK/TAB INC INC LET REAGENT AUTO MICROSCOP Y PROTEIN 89101 [facility]SY REY XCPT 6 [facility] REFRACTOM INC INC ETRY SERUM PLASMA/WH L BLD CREATININ 69400 KR[facility]SY REY E OTHER 6 [facility] SOURCE INC INC RENAL 24903 KR[facility]SY REY FUNCTION 6 [facility] PANEL INC INC CULTURE 66883 [facility] REY BCT 6 [facility] ISOL&PRSM INC INC PTV ID ISOLATE EA URINE CULTURE 38937 KR[facility] REY BACTERIAL 6 [facility] INC INC QUANTTATI VE COLONY COUNT URINE SUSCEPTIB 50740 KR[facility]SY REY LTY STDY 6 [facility] ANTIMICRB INC INC IAL MICRO/AGA R DILUTJ COLLECTIO 13285 [facility] REY N VENOUS 6 [facility] BLOOD INC INC VENIPUNCT URE BLOOD 16116 KR[facility]SY REY COUNT 6 [facility] COMPLETE INC INC AUTO&AUTO DIFRNTL WBC ANES 13098 [facility] UPPER GI 6 ANESTH REE ENDOSCOPY OF THE PROXIMAL BLUE TO DUODENUM DEBRIDEME 58363 [facility] TAI NT NAIL 6 YONY KRIS ANY METHOD 6/> INFLUENZA G8484 [facility] FALLIS IMMUN 6 YONY YONY NOT ADMINISTE RED RSN NOT GIVEN BMI DOC G8420 [facility] TAI W/I 6 YONY KRIS NORMAL IKER & NO F/U PLAN REQUIRED CURRENT 1036F [facility] FALLIS TOBACCO 6 YONY YONY NON-USER CAD CAP COPD PV DM PNEUMOCOC 4040F [facility] TAI KELLEE 6 YONY KRIS VACCINE ADMIN RCVD PRIOR ELIG CLIN G8427 [facility] TAI ATTSTS 6 YONY KRIS DOC M REC OBTD UPD/REV PT MEDS DISPBL T4535 [facility] 6 HOME HOME ELD/GUARD HEALTH HEALTH /PAD/UNDG AGENCY AGENCY RMNT INCONT EA NONEMERG A0120 FEDERATED FEDERATED TRNSPRT: 6 MINI-BUS TRANSPORT TRANSPORT MTN ATION SER ATION SER AREA/OTH SYS COLLECTIO 97151 [facility] REY N VENOUS 6 [facility] BLOOD INC INC VENIPUNCT URE BLOOD 00548 KR[facility]SY REY COUNT 6 [facility] COMPLETE INC INC AUTO&AUTO DIFRNTL WBC BASIC 38302 KRISSY REY METABOLIC 6 [facility] [place] [address] COMBINED COMBINED THYROID 6 PHYSICIAN PHYSICIAN STIMULATI S LA S LA NG HORMONE TSH COMPREHEN 49509 COMBINED COMBINED SIVE 6 PHYSICIAN PHYSICIAN METABOLIC S LA S LA PANEL SEDIMENTA 32068 COMBINED COMBINED TION RATE 6 PHYSICIAN PHYSICIAN RBC S LA S LA NON-AUTOM ATED BLOOD 88791 COMBINED COMBINED COUNT 6 PHYSICIAN PHYSICIAN COMPLETE S LA S LA AUTO&AUTO DIFRNTL WBC PWR E2382 [facility] HOVEROUND TUBE 6 PNEUMATIC CORPORATI CORPORATI DRIVE ON ON WHEEL TIRE REPL EACH PWR E2391 [facility] HOVEROUND SOLID 6 ANNMARIE CORPORATI CORPORATI TIRE ON ON REPLACEME NT ONLY EACH R E2365 [facility] HOVEROUND WHLCHAIR 6 ACSS U-1 CORPORATI CORPORATI SEALED ON ON LEAD ACID BATTRY EA PWR E2366 [facility] HOVEROUND ACSS 6 BATTRY CORPORATI CORPORATI CHRGR 1 ON ON MODE W/ONLY 1 BATTRY PWR E2381 [facility] H[facility]OUND PNEUMATIC 6 DR[address] CORPORATI CORPORATI WHEEL ON ON TIRE REPL ONLY EACH REPR/SRVC K0739 H[facility] HOVEROUND DME NOT 6 O2 RQR CORPORATI CORPORATI TECH ON ON CMPNT PER 15 MINS NONEMERGE A0130 FEDERATED FEDERATED NCY 5 TRANSPORT TRANSPORT TRANSPORT ATION: [facility] 41856 [facility] SURYA 5 Y Y [facility] COLUMN 1 ANALYTE KARLENE COLLECTIO 06918 [facility] N VENOUS 5 Y Y [facility] VENIPUNCT URE NONEMERG A0120 FEDERATED FEDERATED TRNSPRT: 5 MINI-BUS TRANSPORT TRANSPORT MTN [facility] AREA/OTH SYS ANES 92479 [facility] FRED[facility] UPPER GI 5 ANESTH ENDOSCOPY OF THE [place] [address] KRISSY REY LIPASE 5 [place] [address] KRISSY REY INFUSION 5 [facility] THERAPY INC INC PROPHYLAX IS/DX EA HOUR THER 57623 KRISSY REY PROPH/DX 5 [facility] NJX EA INC INC SEQL IV PUSH SBST/DRUG FAC INJECTION J2405 [facility] REY 5 [facility] ONDANSETR INC INC ON HCL PER 1 [place] [address] KR[facility]SY REY AMYLASE 5 [facility] INC INC COMPREHEN 41158 KR[facility]SY REY SIVE 5 [facility] METABOLIC INC INC PANEL BLOOD 32195 KRISSY REY COUNT 5 [facility] COMPLETE INC INC AUTO&[place] [address] KRISSY REY INFUSION 5 [facility] THERAPY/P INC INC ROPHYLAXI S /DX 1ST TO 1 HR THERAPEUT 72465 KRISSY REY IC 5 [facility] INJECTION INC INC IV PUSH EACH NEW DRUG DISPBL T4535 [facility] 5 HOME HOME ELD/GUARD HEALTH HEALTH /PAD/UNDG AGENCY AGENCY RMNT INCONT EA ADLT SZD T4526 [facility] 5 HOME HOME INCONT HEALTH HEALTH PROD AGENCY AGENCY UNDWEAR MED EA BLOOD 37418 COMBINED COMBINED COUNT 5 PHYSICIAN PHYSICIAN COMPLETE S LA S LA AUTO&AUTO DIFRNTL WBC COMPREHEN 17499 COMBINED COMBINED SIVE 5 PHYSICIAN PHYSICIAN [place] [address] COMBINED COMBINED THYROID 5 PHYSICIAN PHYSICIAN STIMULATI S LA S LA NG HORMONE TSH INFLUENZA Q2038 [facility] VACC 5 VALLEY TIMOTHY SPLIT INTERNAL VIRUS 3 MED YRS & > IM FLUZONE ADMINISTR G0008 [facility] ATION OF 5 VALLEY TIMOTHY INFLUENZA [place] [address] [place] ALL TRACT UPR 5 MEDICAL W/SM INT IMAGING W/MULT ASS SERIAL IMAGES RADEX 70055 KRISSY REY ESOPHAGUS 5 [facility] INC INC NONEMERGE A0130 FEDERATED FEDERATED NCY 5 TRANSPORT TRANSPORT TRANSPORT ATION: ATION SER ATION SER SANDRA AKBAR NONEMERGE A0130 FEDERATED FEDERATED NCY 5 TRANSPORT TRANSPORT TRANSPORT ATION: ATION SER ATION SER SANRDA R VAN ECG 03442 KRISSY GASTON JR ROUTINE 5 [facility] W/LEAST P 12 LDS I&R ONLY ECG 47086 KRISSY REY ROUTINE 5 [facility] ECG INC INC W/LEAST 12 LDS TRCG ONLY W/O I&R COMPUTER- 17657 KRISSY REY AIDED 5 [facility] DETECTION INC INC SCREENING MAMMOGRAP HY COMPREHEN 52243 KR[facility]SY REY SIVE 5 [facility] METABOLIC INC INC PANEL DXA BONE 52030 KRISSY KRISSY DENSITY 5 [facility] STUDY 1/> INC INC SITES AXIAL SKEL RENAL 22164 KRISSY REY FUNCTION 5 [facility] PANEL INC INC COLLECTIO 98043 KR[facility]SY REY N VENOUS 5 [facility] BLOOD INC INC VENIPUNCT URE NONEMERGE A0130 FEDERATED FEDERATED NCY 5 TRANSPORT TRANSPORT TRANSPORT ATION: ATION SER ATION SER SANDRA R VAN URNLS DIP 80280 [facility] REY 5 [facility] STICK/TAB INC INC LET REAGENT AUTO MICROSCOP Y BLOOD 18607 KR[facility]SY REY COUNT 5 [facility] COMPLETE INC INC AUTO&AUTO DIFRNTL WBC SCREENING G0202 KR[facility]SY REY 5 [facility] MAMMOGRAP INC INC HY MARIA DEL ROSARIO INCL CAD WHEN PERFORMD NONEMERGE A0130 FEDERATED FEDERATED NCY 5 TRANSPORT TRANSPORT TRANSPORT ATION: ATION SER ATION SER SANDRA R VAN URNLS DIP 01583 [facility]SY REY 5 [facility] STICK/TAB INC INC LET REAGENT AUTO MICROSCOP Y CULTURE 46921 KRISSY REY BCT 5 [facility] ISOL&PRSM INC INC PTV ID ISOLATE EA URINE SUSCEPTIB 16231 KRISSY KRISSY LTY STDY 5 [facility] ANTIMICRB INC INC IAL MICRO/AGA R DILUTJ CULTURE 93504 KRISSY REY BACTERIAL 5 [facility] INC INC QUANTTATI VE COLONY COUNT URINE NONEMERG A0120 FEDERATED FEDERATED TRNSPRT: 5 MINI-BUS TRANSPORT TRANSPORT MTN ATION SER ATION SER AREA/OTH SYS INCONTINE T4541 [facility] 5 HOME HOME PRODUCT HEALTH HEALTH DISPOSABL AGENCY AGENCY E UNDPAD LARGE EA BLOOD 12167 KRISSY REY COUNT 5 [facility] COMPLETE INC INC AUTO&AUTO DIFRNTL WBC NONEMERG A0120 FEDERATED FEDERATED TRNSPRT: 5 MINI-BUS TRANSPORT TRANSPORT MTN ATION SER ATION SER AREA/OTH SYS CULTURE 24191 KRISSY REY BACTERIAL 5 [facility] INC INC QUANTTATI VE COLONY COUNT URINE SUSCEPTIB 13302 KRISSY REY LTY STDY 5 [facility] ANTIMICRB INC INC IAL MICRO/AGA R DILUTJ RENAL 43707 KRISSY REY FUNCTION 5 [facility] PANEL INC INC COLLECTIO 32109 KRISSY REY N VENOUS 5 [facility] BLOOD INC INC VENIPUNCT URE CULTURE 23600 KRISSY REY BCT 5 [facility] ISOL&PRSM INC INC PTV ID ISOLATE EA URINE CREATININ 09344 KRISSY REY E OTHER 5 [facility] SOURCE INC INC PROTEIN 01892 KRISSY REY XCPT 5 [facility] REFRACTOM INC INC ETRY SERUM PLASMA/WH L BLD URNLS DIP 59921 KRISSY REY 5 [facility] STICK/TAB INC INC LET [place] [address] COMBINED COMBINED THYROID 5 PHYSICIAN PHYSICIAN STIMULATI [...] ATION SER ATION SER WHEELCHAI R VAN ECG 62647 KRISSY CORBIN ROUTINE 5 [facility] W/LEAST P 12 LDS I&[place] [address] KRISSY REY INFUSION 5 [facility] THERAPY INC INC PROPHYLAX IS/DX EA HOUR AMB A0427 [facility] [address] [place] [address] ALS AMBULANCE AMBULANCE EMERGENCY SE SE TRANSPORT LEVEL 1 COMPREHEN 04165 KR[facility]SY REY SIVE 5 [facility] METABOLIC INC INC PANEL ECG 75665 KRISSY REY ROUTINE 5 [facility] ECG INC INC W/LEAST 12 LDS TRCG ONLY W/[place] I&[place] [address] KR[facility]SY REY INFUSION 5 [facility] THERAPY/P INC INC ROPHYLAXI S /DX 1ST TO 1 HR BLOOD 25089 KR[facility]SY REY COUNT 5 [facility] COMPLETE INC INC AUTO&AUTO DIFRNTL WBC GROUND A0425 ANDREYAlmaz BALDERAS [address] PER AMBULANCE AMBULANCE STATUTE SE SE MILE BLD GLU A4253 [place] TEST/REAG 5 STATES STATES T STRIPS [facility] MEDICAL HOME BLD SUPPLY SUPPLY GLU MON-50 LANCETS A4259 [place] PER BOX 5 STATES STATES OF 100 MEDICAL MEDICAL SUPPLY SUPPLY DISPBL T4535 [facility]/KATHIE 5 HOME HOME ELD/GUARD HEALTH HEALTH /PAD/UNDG AGENCY AGENCY RMNT INCONT EA BLOOD 00762 COMBINED COMBINED COUNT 5 PHYSICIAN PHYSICIAN COMPLETE S LA S LA AUTO&AUTO DIFRNTL WBC SEDIMENTA 06423 COMBINED COMBINED TION RATE 5 PHYSICIAN PHYSICIAN RBC S LA S LA NON-AUTOM ATED COMPREHEN 01744 COMBINED COMBINED SIVE 5 PHYSICIAN PHYSICIAN [place] [address] COMBINED COMBINED THYROID 5 PHYSICIAN PHYSICIAN STIMULATI S LA S LA NG HORMONE TSH NONEMERGE A0130 FEDERATED FEDERATED NCY 5 TRANSPORT TRANSPORT TRANSPORT ATION: ATION SER ATION SER SANDRA AKBAR OTHER K0108 HOVEROUND HOVEROUND ACCESSORI 5 ES CORPORATI CORPORATI ON ON PWR E2365 HOVEROUND HOVEROUND WHLCHAIR 5 ACSS U-1 CORPORATI CORPORATI SEALED ON ON LEAD ACID BATTRY EA RENAL 72230 [facility] FUNCTION 5 [facility] PANEL INC INC COLLECTIO 56624 [facility] N VENOUS 5 [facility] BLOOD INC INC VENIPUNCT URE DNA 94577 [facility] ANTIBODY 5 [facility] [place]/DO INC INC UBLE STRANDED NONEMERGE A0130 FEDERATED FEDERATED NCY 5 TRANSPORT TRANSPORT TRANSPORT ATION: ATION SER ATION SER GERALDOGarrett AKBAR HEPATIC 67498 [facility] FUNCTION 5 [facility] PANEL INC INC BLOOD 30951 [facility] RE[facility] COUNT 5 [facility] COMPLETE INC INC AUTO&AUTO DIFRNTL WBC NORMAL A4256 [facility] LOW AND 5 [facility] STATES HIGH MEDICAL MEDICAL CALIBRATO SUPPLY SUPPLY R SOLUTION/ CHIPS LANCETS A4259 [facility] PER BOX 5 [facility] STATES OF [facility] MEDICAL MEDICAL SUPPLY SUPPLY BLD GLU A4253 [facility] TEST/REAG 5 [facility] MEDICAL MEDICAL HOME BLD SUPPLY SUPPLY GLU MON-50 SPRING-PO A4258 [facility] WERED [address] [place] [address] STATES DEVICE MEDICAL MEDICAL FOR SUPPLY SUPPLY LANCET EACH NONEMERGE A0130 FEDERATED FEDERATED NCY 5 TRANSPORT TRANSPORT TRANSPORT ATION: ATION SER ATION SER GERALDOGarrett AKBAR INCONTINE T4541 [facility] NCE 5 HOME HOME PRODUCT HEALTH HEALTH DISPOSABL AGENCY AGENCY E UNDPAD LARGE EA NONEMERGE A0130 FEDERATED FEDERATED NCY 5 TRANSPORT TRANSPORT TRANSPORT ATION: ATION SER ATION SER SANDRA AKBAR NONEMERGE A0130 FEDERATED FEDERATED NCY 4 TRANSPORT TRANSPORT TRANSPORT ATION: ATION SER ATION SER SANDRA AKBAR ADLT SZD T4526 [facility] 4 HOME HOME INCONT HEALTH HEALTH PROD AGENCY AGENCY UNDWEAR MED EA DISPBL T4535 [facility] 4 HOME HOME ELD/GUARD HEALTH HEALTH /PAD/UNDG AGENCY AGENCY RMNT INCONT EA NONEMERGE A0130 FEDERATED FEDERATED NCY 4 TRANSPORT TRANSPORT TRANSPORT ATION: ATION SER AT[facility]E [facility] SER WHEELSAMIRAI R VAN DEBRIDEME 91779 LAUSE FED LAUSE FED NT NAIL 4 ANY METHOD 6/> NASL A7034 [place] [facility] INTRFCE 4 HOME HOME POS [facility] PRSS EQUIPME EQUIPME DE[place] [address] COMBINED COMBINED THYROID 4 PHYSICIAN PHYSICIAN STIMULATI S LA S LA NG HORMONE TSH COMPREHEN 42780 COMBINED COMBINED SIVE 4 PHYSICIAN PHYSICIAN METABOLIC S LA S LA PANEL BLOOD 75350 COMBINED COMBINED COUNT 4 PHYSICIAN PHYSICIAN COMPLETE S LA S LA AUTO&AUTO DIFRNTL WBC NONEMERG A0120 FEDERATED FEDERATED TRNSPRT: 4 TRANS MINI-BUS TRANSPORT [facility]/OTH SYS ADLT SZD T4526 [facility] 4 HOME HOME INCONT HEALTH HEALTH PROD AGENCY AGENCY UNDAR MED EA BLOOD 39398 [facility] REY COUNT 4 [facility] COMPLETE INC INC AUTO&AUTO DIFRNTL WBC NONEMERG A0120 FEDERATED FEDERATED TRNSPRT: 4 TRANS MINI-BUS TRANSPORT [facility]/OTH SYS COMPREHEN 51452 KRISSY REY SIVE 4 [facility] METABOLIC INC INC PANEL COLLECTIO 14788 KRISSY REY N VENOUS 4 [facility] BLOOD INC INC VENIPUNCT URE SUSCEPTIB [address] [facility] RE[facility] LTY STDY 4 [facility] ANTIMICRB INC INC IAL MICRO/AGA R DILUTJ CULTURE 23398 [facility] BACTERIAL 4 [facility] INC INC QUANTTATI VE COLONY COUNT URINE CULTURE 14669 [facility] REY BCT 4 [facility] ISOL&PRSM INC INC PTV ID ISOLATE EA URINE CREATININ 62631 KRISSY Bolivar OTHER 4 [facility] SOURCE INC INC 25 33339 KRISSY REY HYDROXY 4 [facility] INCLUDES INC [place] [address] KRISSY REY PARATHORM 4 [facility] ONE INC INC URNLS DIP 87492 [facility] REY [facility] STICK/TAB INC INC LET REAGENT AUTO MICROSCOP Y PROTEIN 57394 KR[facility]SY REY XCPT 4 [facility] REFRACTOM INC INC ETRY SERUM PLASMA/WH L BLD RADEX 01415 KRISSY REY UPPER GI 4 [facility] W/WO INC INC GLUCAGON/ DELAY IMAGES W/KUB OPHTH 56297 [facility]IDA WALKER [facility][NOTE 3] 4 VISION XM&EVAL CENTER COMPRHNSV ESTAB PT 1/> DETERMINA 92834 FARIDA WALKER [facility] TION 4 VISION REFRACTIV CENTER E STATE NONEMERG A0120 FEDERATED FEDERATED TRNSPRT: 4 TRANS MINI-BUS TRANSPORT SERVBLUEG MTN ATION SER NATA AREA/OTH SYS DISPBL T4535 [facility]/KATHIE 4 HOME HOME ELD/GUARD HEALTH HEALTH /PAD/UNDG AGENCY AGENCY RMNT INCONT EA NONEMERGE A0130 FEDERATED FEDERATED NCY 4 TRANS TRANSPORT TRANSPORT SERVBLUEG ATION: ATION SER NATA AKBAR NONEMERG A0120 FEDERATED FEDERATED TRNSPRT: 4 TRANS MINI-BUS TRANSPORT SERVBLUEG MTN ATION SER NATA AREA/OTH SYS NONEMERGE A0130 FEDERATED FEDERATED NCY 4 TRANS TRANSPORT TRANSPORT SERVBLUEG ATION: ATION SER NATA AKBAR NONEMERGE A0130 FEDERATED FEDERATED NCY 4 TRANS TRANSPORT TRANSPORT SERVBLUEG ATION: ATION SER NATA Carrasquillo VAN PROTEIN 15941 KRISSY CASTROON XCPT 4 [facility] REFRACTOM INC INC ETRY SERUM PLASMA/WH L BLD URNLS DIP 14728 KR[facility]SY REY 4 [facility] STICK/TAB INC INC LET REAGENT AUTO MICROSCOP Y CREATININ 76283 KRISSY REY E OTHER 4 [facility] SOURCE INC INC COLLECTIO 48085 KRISSY REY N VENOUS 4 [facility] BLOOD INC INC VENIPUNCT URE RENAL 73340 KRISSY REY FUNCTION 4 [facility] [place] [place] [facility] [place] [place] [facility] PANEL INC INC BLOOD 73256 KRISSY REY COUNT 4 [facility]OS[facility] COMPLETE INC INC AUTO&AUTO DIFRNTL WBC NONEMERGE A0130 FEDERATED FEDERATED NCY 4 TRANS TRANSPORT TRANSPORT SERVBLUEG ATION: ATION SER NATA SANDRA Carrasquillo VAN INCONTINE T4541 [facility] NCE 4 HOME HOME PRODUCT HEALTH HEALTH DISPOSABL AGENCY AGENCY E UNDPAD LARGE EA DISPBL T4535 [facility]/KATHIE 4 HOME HOME ELD/GUARD HEALTH HEALTH /PAD/UNDG AGENCY AGENCY RMNT INCONT EA TUBING A7037 [facility] BAI USED WITH 4 HOME HOME POSITIVE MEDICAL MEDICAL AIRWAY EQUIPME EQUIPME PRESSURE DEVICE NASL A7034 [facility] BAI INTRFCE 4 HOME HOME POS ARWAY MEDICAL MEDICAL PRSS EQUIPME EQUIPME DEVC W/WO HEAD STRAP HEADGEAR A7035 [facility] BAI USED 4 HOME HOME W/POSITIV MEDICAL MEDICAL E AIRWAY EQUIPME EQUIPME PRESSURE DEVICE CONTINUOU E0601 [facility] BAI S 4 HOME HOME POSITIVE MEDICAL MEDICAL AIRWAY EQUIPME EQUIPME PRESSURE DEVICE NONEMERGE A0130 FEDERATED FEDERATED NCY 4 TRANSPORT TRANSPORT TRANSPORT ATION: ATION SER ATION SER SANDRA AKBAR NONEMERGE A0130 FEDERATED FEDERATED NCY 4 TRANSPORT TRANSPORT TRANSPORT ATION: ATION SER ATION SER SANDRA AKBAR NONEMERGE A0130 FEDERATED FEDERATED NCY 4 TRANSPORT TRANSPORT TRANSPORT ATION: ATION SER ATION SER SANDRA R VAN CONTINUOU E0601 [facility] BAI S 4 HOME HOME POSITIVE MEDICAL MEDICAL AIRWAY EQUIPME EQUIPME PRESSURE DEVICE CONTINUOU E0601 [facility] BAI S 4 HOME HOME POSITIVE MEDICAL MEDICAL AIRWAY EQUIPME EQUIPME PRESSURE DEVICE NONEMERG A0120 FEDERATED FEDERATED TRNSPRT: 4 MINI-BUS TRANSPORT TRANSPORT MTN ATION SER ATION SER AREA/OTH SYS CUSHN A7032 RICHARDSON RICHARDSON NASAL 4 HOME HOME MASK MEDICAL MEDICAL INTERFACE EQUIPME EQUIPME REPLACEME NT ONLY EACH URINALYSI 63094 [employer], MHC INC, S 4 TRAVEL DIRECTOR TRAVEL DIRECTOR QUAL/SEMI ANDREY BALDERAS QUANT CO HOS CO HOS EXCEPT IMMUNOASS AYS PROTEIN 97574 [employer], MHC INC, TOTAL 4 TRAVEL DIRECTOR TRAVEL DIRECTOR XCPT ANDREY BALDERAS REFRACTOM CO HOS CO HOS ETRY URINE 25 74164 [employer], [employer], HYDROXY 4 TRAVEL DIRECTOR TRAVEL DIRECTOR INCLUDES ANDREY BALDERAS FRACTIONS CO HOS CO HOS IF PERFORMED CULTURE 40373 [employer], [employer], BACTERIAL 4 TRAVEL DIRECTOR TRAVEL DIRECTOR ANDREY HANSENS QUANTTATI CO HOS CO HOS VE COLONY COUNT URINE RENAL 29514 [employer], [employer], FUNCTION 4 TRAVEL DIRECTOR TRAVEL DIRECTOR PANEL ANDREY HANSENS CO HOS CO HOS CULTURE 01276 [employer], [employer], BCT 4 TRAVEL DIRECTOR TRAVEL DIRECTOR ISOL&PRSM ANDREY BALDERAS PTV ID CO HOS CO HOS ISOLATE EA URINE URNLS DIP 17341 [employer], [employer], 4 TRAVEL DIRECTOR TRAVEL DIRECTOR STICK/TAB ANDREY BALDERAS LET RGNT CO HOS CO HOS AUTO W/O MICROSCOP Y CREATININ 85182 [employer], [employer], E OTHER 4 TRAVEL DIRECTOR TRAVEL DIRECTOR SOURCE ANDREY HANSENS CO HOS CO HOS DNA 14552 [employer], MHC INC, ANTIBODY 4 TRAVEL DIRECTOR TRAVEL DIRECTOR [place]/DO ANDREY BALDERAS UBLE CO HOS CO HOS STRANDED COMPLEMEN 80905 [employer], [employer], T ANTIGEN 4 TRAVEL DIRECTOR TRAVEL DIRECTOR EACH ANDREY HANSENS COMPONENT CO HOS CO HOS SUSCEPTBI 00189 [employer], [employer], LTY STDY 4 TRAVEL DIRECTOR TRAVEL DIRECTOR ANTIMICRB ANDREY RIVEROOLAS IAL AGNT CO HOS CO HOS AGAR DILUTJ NONEMERG A0120 FEDERATED FEDERATED TRNSPRT: 4 MINI-BUS TRANSPORT TRANSPORT MTN ATION SER ATION SER AREA/OTH SYS BLOOD 15942 [employer], [employer] INC, COUNT 4 TRAVEL DIRECTOR TRAVEL DIRECTOR COMPLETE ANDREY HANSENS AUTO&AUTO CO HOS CO HOS DIFRNTL WBC ADLT SZD T4526 [facility] DISPBL 4 HOME HOME INCONT HEALTH HEALTH PROD AGENCY AGENCY UNDWEAR MED EA CONTINUOU E0601 [facility] BAI S 4 HOME HOME POSITIVE MEDICAL MEDICAL AIRWAY EQUIPME EQUIPME PRESSURE DEVICE NONEMERG A0120 FEDERATED FEDERATED TRNSPRT: 4 MINI-BUS TRANSPORT [facility] CONTINU[facility] E0601 R[facility] BAI S 4 HOME HOME POSITIVE MEDICAL MEDICAL AIRWAY EQUIPME EQUIPME PRESSURE DEVICE NONEMERG A0120 FEDERATED FEDERATED TRNSPRT: 4 MINI-BUS TRANSPORT TRANSPORT [facility]OTH SYS DISPBL T4535 [facility]/KATHIE 4 HOME HOME ELD/GUARD HEALTH HEALTH /PAD/UNDG AGENCY AGENCY RMNT INCONT EA INCONTINE T4541 [facility] NCE 4 HOME HOME PRODUCT HEALTH HEALTH DISPOSABL AGENCY AGENCY E UNDPAD LARGE EA ADLT SZD T4526 [facility] DISPBL 4 HOME HOME INCONT HEALTH HEALTH PROD AGENCY AGENCY UNDWEAR MED EA ECHO 24186 [facility] R-T 3 Y Y 2D [facility] W/WOM-MOD E COMPL SPEC&COLR D PWR K0823 HOVEROUND HOVEROUND GRP 2 STD 3 CAPTAINS CORPORATI CORPORATI CHAIR PT ON ON TO &=300 LBS NONEMERG A0120 FEDERATED FEDERATED TRNSPRT: 3 MINI-BUS TRANSPORT TRANSPORT MTN ATION CAS ATION [facility]/OTH SYS CONTINUOU E0601 RICHAR[facility]ON BAI S 3 HOME HOME POSITIVE MEDICAL MEDICAL AIRWAY EQUIPME EQUIPME PRESSURE DEVICE NONEMERG A0120 FEDERATED FEDERATED TRNSPRT: 3 MINI-BUS TRANSPORT TRANSPORT MTN ATION SER ATION SER [facility]/OT SYS EXTERNAL 17454 [employer], [employer], ECG 3 TRAVEL DIRECTOR TRAVEL DIRECTOR SCANNING ANDREY BALDERAS ANALYSIS CO HOS CO HOS REPORT XTRNL ECG 42844 [employer], [employer], & 48 HR 3 TRAVEL DIRECTOR TRAVEL DIRECTOR RECORDING ANDREY [place] [address] [employer], [employer], PHOSPHORU 3 TRAVEL DIRECTOR TRAVEL DIRECTOR S ANDREY ANDREY [place] [address] [employer], [employer], PARATHORM 3 TRAVEL DIRECTOR TRAVEL DIRECTOR ONE ANDREY ANDREY CO HOS CO HOS PROTEIN 90405 [employer], [employer], TOTAL 3 TRAVEL DIRECTOR TRAVEL DIRECTOR XCPT ANDREY ANDREY REFRACTOM CO HOS CO HOS ETRY URINE URINALYSI 97100 [employer], [employer], S 3 TRAVEL DIRECTOR TRAVEL DIRECTOR QUAL/SEMI ANDREY ANDREY QUANT CO HOS CO HOS EXCEPT IMMUNOASS AYS 25 98453 [employer], [employer], HYDROXY 3 TRAVEL DIRECTOR TRAVEL DIRECTOR INCLUDES ANDREY ANDREY FRACTIONS CO HOS CO HOS IF PERFORMED COMPLEMEN 89515 [employer], [employer], T TOTAL 3 TRAVEL DIRECTOR TRAVEL DIRECTOR HEMOLYTIC ANDREY ANDREY CO HOS CO HOS CREATININ 82505 [employer], [employer], E OTHER 3 TRAVEL DIRECTOR TRAVEL DIRECTOR SOURCE ANDREY ANDREY CO HOS CO HOS URNLS DIP 87938 [employer], [employer], 3 TRAVEL DIRECTOR TRAVEL DIRECTOR STICK/TAB ANDREY HANSENS LET RGNT CO HOS CO HOS AUTO W/O MICROSCOP Y COMPLEMEN 66223 [employer], [employer], T ANTIGEN 3 TRAVEL DIRECTOR TRAVEL DIRECTOR EACH ANDREY ANDREY COMPONENT CO HOS CO HOS DNA 44470 [employer], [employer], ANTIBODY 3 TRAVEL DIRECTOR TRAVEL DIRECTOR [place]/DO ANDREY ANDREY UBLE CO HOS CO HOS STRANDED COMPREHEN 14444 [employer], [employer], SIVE 3 TRAVEL DIRECTOR TRAVEL DIRECTOR METABOLIC ANDREY ANDREY PANEL CO HOS CO HOS NONEMERG A0120 FEDERATED FEDERATED TRNSPRT: 3 MINI-BUS TRANSPORT TRANSPORT MTN ATION SER ATION SER AREA/OTH SYS BLOOD 80894 [employer], [employer], COUNT 3 TRAVEL DIRECTOR TRAVEL DIRECTOR COMPLETE ANDREY ANDREY AUTO&AUTO CO HOS CO HOS DIFRNTL WBC TUBING A7037 [facility] BAI USED WITH 3 HOME HOME POSITIVE MEDICAL MEDICAL AIRWAY EQUIPME EQUIPME PRESSURE DEVICE NASL A7034 [facility] BAI INTRFCE 3 HOME HOME POS ARWAY MEDICAL MEDICAL PRSS EQUIPME EQUIPME DEVC W/WO HEAD STRAP PWR WC K0823 HOVEROUND HOVEROUND GRP 2 STD 3 CAPTAINS CORPORATI CORPORATI CHAIR PT ON ON TO &=300 LBS HOS BED E0260 [facility] BAI SEMI-ELEC 3 HOME HOME W/ANY MEDICAL MEDICAL TYPE SIDE EQUIPME EQUIPME RAIL W/MATTRSS NONEMERG A0120 FEDERATED FEDERATED TRNSPRT: 3 MINI-BUS TRANSPORT TRANSPORT MTN ATION SER ATION SER AREA/OTH SYS CONTINUOU E0601 R[facility] BAI S 3 HOME HOME POSITIVE MEDICAL MEDICAL AIRWAY EQUIPME EQUIPME PRESSURE DEVICE LIPID 99181 [employer], [employer], PANEL 3 TRAVEL DIRECTOR TRAVEL DIRECTOR ANDREY ANDREY CO HOS CO HOS COMPREHEN 36565 [employer], [employer], SIVE 3 TRAVEL DIRECTOR TRAVEL DIRECTOR METABOLIC ANDREY ANDREY PANEL CO HOS CO HOS SEDIMENTA 64983 [employer], [employer], TION RATE 3 TRAVEL DIRECTOR TRAVEL DIRECTOR RBC ANDREY ANDREY NON-[place] [address] [employer], [employer], THYROID 3 TRAVEL DIRECTOR TRAVEL DIRECTOR STIMULATI ANDREY ANDREY NG CO HOS CO HOS HORMONE TSH PWR WC K0823 HOVEROUND HOVEROUND GRP 2 STD 3 CAPTAINS CORPORATI CORPORATI CHAIR PT ON ON TO &=300 LBS HOS BED E0260 R[facility] BAI SEMI-ELEC 3 HOME HOME W/ANY MEDICAL MEDICAL TYPE SIDE EQUIPME EQUIPME RAIL W/MATTRSS ADLT SZD T4526 [facility] DIS[facility]BL 3 HOME HOME INCONT HEALTH HEALTH PROD AGENCY AGENCY UNDWEAR MED EA INCONTINE T4541 [facility] NCE 3 HOME HOME PRODUCT HEALTH HEALTH DISPOSABL AGENCY AGENCY E UNDPAD LARGE EA DISPBL T4535 [facility]/KATHIE 3 [...] MEDICAL MEDICAL AIRWAY EQUIPME EQUIPME PRESSURE DEVICE DEBRIDEME 96863 LAUSE FED LAUSE FED NT NAIL 3 ANY METHOD 6/> US BREAST 35831 [facility] [employer], [employer], REAL 3 TRAVEL DIRECTOR TRAVEL DIRECTOR TIME ANDREYDIYA HANSENS W/IMAGE CO HOS CO HOS DOCUMENTA TION PWR K0823 HOVEROUND HOVEROUND GRP 2 STD 3 CAPTAINS CORPORATI CORPORATI CHAIR PT ON ON TO &=300 LBS HOS BED E0260 R[facility] BAI SEMI-ELEC 3 HOME HOME W/ANY MEDICAL MEDICAL TYPE SIDE EQUIPME EQUIPME RAIL W/MATTRSS CONTINUOU E0601 R[facility] BAI S 3 HOME HOME POSITIVE MEDICAL MEDICAL AIRWAY EQUIPME EQUIPME PRESSURE DEVICE MAMMOGRAP 47255 [facility] HY 3 EIDER DEE [facility] L ASSOCIAT US BREAST 95895 [facility] REAL 3 EIDER DEE TIME RADIOLOGY W/IMAGE ASSOCIAT DOCUMENTA TION NASL A7034 [facility] BAI INTRFCE 3 HOME HOME POS ARWAY MEDICAL MEDICAL PRSS EQUIPME EQUIPME DEVC W/WO HEAD STRAP 25 56279 [employer], [employer], HYDROXY 3 TRAVEL DIRECTOR TRAVEL DIRECTOR INCLUDES ANDREY BALDERAS FRACTIONS CO HOS CO HOS IF PERFORMED PROTEIN 17614 [employer], [employer], TOTAL 3 TRAVEL DIRECTOR TRAVEL DIRECTOR XCPT ANDREY ANDREY REFRACTOM CO HOS CO HOS ETRY URINE RENAL 18494 [employer], [employer], FUNCTION 3 TRAVEL DIRECTOR TRAVEL DIRECTOR PANEL ANDREY HANSENS CO HOS CO HOS CREATININ 91850 [facility] [employer], [facility] INC, E OTHER 3 TRAVEL DIRECTOR TRAVEL DIRECTOR SOURCE ANDREY ANDREY CO HOS CO HOS BLOOD 99675 [employer], [employer], COUNT 3 TRAVEL DIRECTOR TRAVEL DIRECTOR COMPLETE ANDREY HANSENS AUTO&AUTO CO HOS CO HOS DIFRNTL WBC HOS BED E0260 [facility] BAI SEMI-ELEC 3 HOME HOME W/ANY MEDICAL MEDICAL TYPE SIDE EQUIPME EQUIPME RAIL W/MATTRSS PWR K0823 HOVEROUND HOVEROUND GRP 2 STD 3 CAPTAINS CORPORATI CORPORATI CHAIR PT ON ON TO &=300 LBS CONTINUOU E0601 [facility] BAI S 3 HOME HOME POSITIVE MEDICAL MEDICAL AIRWAY EQUIPME EQUIPME PRESSURE DEVICE ADLT SZD T4526 [facility] DISPBL 3 HOME HOME INCONT HEALTH HEALTH PROD AGENCY AGENCY UNDWEAR MED EA INCONTINE T4541 [facility] NCE 3 HOME HOME PRODUCT HEALTH HEALTH DISPOSABL AGENCY AGENCY E UNDPAD LARGE EA DISPBL T4535 [facility] LIN[facility]/KATHIE 3 HOME HOME ELD/GUARD HEALTH HEALTH /PAD/UNDG AGENCY AGENCY RMNT INCONT EA BLOOD 90304 COMBINED COMBINED COUNT 3 PHYSICIAN PHYSICIAN COMPLETE S LA S LA AUTO&[place] [address] COMBINED COMBINED THYROID 3 PHYSICIAN PHYSICIAN STIMULATI S LA S LA NG HORMONE TSH SEDIMENTA 47719 COMBINED COMBINED TION RATE 3 PHYSICIAN PHYSICIAN RBC S LA S LA NON-AUTOM ATED LIPID 47525 COMBINED COMBINED PANEL 3 PHYSICIAN PHYSICIAN S LA S LA COLLECTIO 63779 [facility] N VENOUS 3 [facility] BLOOD INTERNAL VENIPUNCT MED URE HOS BED E0260 [facility] BAI SEMI-ELEC 3 HOME HOME W/ANY MEDICAL MEDICAL TYPE SIDE EQUIPME EQUIPME RAIL W/MATTRSS POLYSOM 35168 CRISTIAN CORNEJO CORNEJO CRISTIAN 6/>YRS 3 SLEEP CONSULTIN W/CPAP G SRV 4/> ADDL IKER ATTND PWR K0823 HOVEROUND HOVEROUND GRP 2 STD 3 CAPTAINS CORPORATI CORPORATI CHAIR PT ON ON TO &=300 LBS PROTEIN 46507 [employer], [employer], TOTAL 3 TRAVEL DIRECTOR TRAVEL DIRECTOR XCPT ANDREY HANSENS REFRACTOM CO HOS CO HOS ETRY URINE URINALYSI 25618 [facility] INC, [facility] INC, S 3 TRAVEL DIRECTOR TRAVEL DIRECTOR QUAL/SEMI ANDREY ANDREY QUANT CO HOS CO HOS EXCEPT IMMUNOASS AYS BASIC 22053 [facility] INC, [facility] INC, METABOLIC 3 TRAVEL DIRECTOR TRAVEL DIRECTOR PANEL ANDREY ANDREY CALCIUM CO HOS CO HOS TOTAL URNLS DIP 16410 [facility] [employer], [facility] INC, 3 TRAVEL DIRECTOR TRAVEL DIRECTOR STICK/TAB ANDREY BALDERAS LET RGNT CO HOS CO HOS AUTO W/O MICROSCOP Y CREATININ 70129 [employer], [employer], E OTHER 3 TRAVEL DIRECTOR TRAVEL DIRECTOR SOURCE ANDREY ANDREY CO HOS CO HOS CONTINUOU E0601 [facility] BAI S 3 HOME HOME POSITIVE MEDICAL MEDICAL AIRWAY EQUIPME EQUIPME PRESSURE DEVICE POLYSOM 85186 [facility] 6/>YRS 3 [facility] W/CPAP 4/> ADDL IKER ATTND BASIC 02364 [facility] [employer], [employer], METABOLIC 3 TRAVEL DIRECTOR TRAVEL DIRECTOR PANEL ANDREY ANDREY CALCIUM CO HOS CO HOS TOTAL CATH PLMT 68212 [facility] L HRT & [address] [place] [address] ARTS W/NJX & ANGIO IMG S&I INJECTION J3010 [facility] FENTANYL [address] [place] [address] CITRATE 0.1 MG CLOSURE C1760 [facility] DEVICE [address] [place] [address] VASCULAR INTRDUCR/ C1894 [facility] SHEATH [address] [place] [address] NOT GUID INTRACARD EP NON-LASR INJECTION J2001 [address] LIDOCAINE HCL INTRAVENO US INFUS 10 MG COLLECTIO 52067 [facility] N VENOUS [address] [place] [address] VENIPUNCT URE RADIOLOGI 02973 [facility] [place] SCALF IRIS C EXAM 3 RADIOLOGY CHEST 2 VIEWS FRONTAL&L ATERAL BASIC 36770 [facility] METABOLIC [address] [place] [address] CALCIUM TOTAL BLOOD 88573 [facility] COUNT [address] [place] [address] AUTOMATED PWR WC K0823 HOVEROUND HOVEROUND GRP 2 STD 3 CAPTAINS CORPORATI CORPORATI CHAIR PT ON ON TO &=300 LBS HOS BED E0260 [facility] BAI SEMI-ELEC 3 HOME HOME W/ANY MEDICAL MEDICAL TYPE SIDE EQUIPME EQUIPME RAIL W/MATTRSS CONTINUOU E0601 [facility] S 3 HOME HOME POSITIVE MEDICAL MEDICAL AIRWAY EQUIPME EQUIPME PRESSURE DEVICE HUMDIFIR E0562 [facility] HEATED 3 HOME HOME USED MEDICAL MEDICAL W/POS EQUIPME EQUIPME ARWAY PRESSURE DEVICE HEADGEAR A7035 [facility] BAI USED 3 HOME HOME W/POSITIV MEDICAL MEDICAL E AIRWAY EQUIPME EQUIPME PRESSURE DEVICE FILTER A7038 [facility] DISPBL 3 HOME HOME USED MEDICAL MEDICAL W/POS EQUIPME EQUIPME ARWAY PRESSURE DEVICE FILTER A7039 [facility] BAI NON 3 HOME HOME DISPBL MEDICAL MEDICAL USED EQUIPME EQUIPME W/POS ARWAY PRESS DEVICE FULL FACE A7030 RICHARDSON RICHARDSON MASK 3 HOME HOME USED MEDICAL MEDICAL W/POS EQUIPME EQUIPME ARWAY PRESS DEVICE EA TUBING A7037 [facility] BAI USED WITH 3 HOME HOME POSITIVE MEDICAL MEDICAL AIRWAY EQUIPME EQUIPME PRESSURE DEVICE TECHNETIU A9539 CHRISTOPHER WHITE M TC-99M 3 [facility] UP TO 25 MCI PULMONARY 57377 [facility] IMAGING PARTICULA TE TECHNETIU A9540 CHRISTOPHER WHITE M TC-99M 3 [facility] STDY DOSE UP TO 10 MCI ECG 21596 CRISTIAN CORNEJO CORNEJO CRISTIAN ROUTINE 3 ECG CONSULTIN W/LEAST G SRV 12 LDS W/I&R POLYSOM 78655 CRISTIAN CORNEJO CORNEJO CRISTIAN 6/>YRS 3 SLEEP 4/> CONSULTIN ADDL G SRV IKER ATTND POLYSOM 34478 [place] J[facility] CES[facility] 6/>YRS 3 [facility] SLEEP 4/> HOSPITAL HOSPITAL ADDL IKER ATTND ECHO 47949 CRISTIAN CORNEJO CORNEJO CRISTIAN TTHRC R-T 3 2D CONSULTIN W/WOM-MOD G SRV E COMPL SPEC&COLR D DUP-SCAN 44375 CRISTIAN CORNEJO CORENJO CRISTIAN XTR VEINS 3 COMPLETE CONSULTIN G SRV BILATERAL STUDY MYOCARDIA 79019 EILEEN Bran SPECT 3 MEDICAL ANTWAN SINGLE IMAGING STUDY AT ASS REST OR STRESS TECHNETIU A9500 KRISSY Robertson TC-99M 3 [facility] [place] [place] [facility] SESTAMIBI INC INC DX PER STUDY DOSE CV STRS 92826 [facility] TST 3 PHYSICIAN XERS&/OR S GROUP RX CONT ECG W/O I&R CV STRS 91205 KRISSY REY TST 3 [facility] [place] [place] [facility] XERS&/OR INC INC RX CONT ECG TRCG ONLY INJECTION J2785 KRISSY KRISSY 3 [facility] HOSP REGADENOS INC INC ON 0.1 MG CV STRS 63282 KRISSY CORBIN TST 3 [facility] XERS&/OR HOSPITAL RX CONT P ECG I&R ONLY MYOCARDIA 58099 KRISSY Bran SPECT 3 [facility] HOSP MULTIPLE INC INC STUDIES LIPID 80385 CHRISTOPHER WHITE PANEL 3 [facility] COLLECTIO 25091 JULIO CESARBETZAIDA WHITE N VENOUS 3 [facility] VENIPUNCT URE PWR WC K0823 HOVEROUND HOVEROUND GRP 2 STD 3 CAPTAINS CORPORATI CORPORATI CHAIR PT ON ON TO &=300 LBS HOS BED E0260 R[facility] BAI SEMI-ELEC 3 HOME HOME W/ANY MEDICAL MEDICAL TYPE SIDE EQUIPME EQUIPME RAIL W/MATTRSS ECG 61289 CHRISTOPHER WHITE ROUTINE 3 [facility] W/LEAST 12 LDS TRCG ONLY W/O I&[place] [address] JULIO CESARBETZAIDA HARRELLBETZAIDA TROPONIN 3 [facility] KETAN OBSERVATI 34130 NAVID MATOS ON CARE 3 EMERGENCY KAM[facility] DISCHARGE SERVICES MANAGEMEN T ECG 36941 NAVID MATOS ROUTINE 3 EMERGENCY KAMILA ECG SERVICES W/LEAST 12 LDS I&R ONLY BASIC 91479 [facility]VI [facility] METABOLIC 3 [facility] CALCIUM TOTAL BLOOD 30467 [facility] COUNT 3 [facility] COMPLETE HOSPITAL HOSPITAL AUTOMATED INJECTION J[address] [facility] [place] INE PER 15 MG INJECTION J2710 [address] NEOSTIGMI [facility] HOSPITAL NE METHYLSUL FATE UP TO 0.5 MG INJECTION J3010 [facility] FENTANYL [address] [place] [address] CITRATE [facility]OS[facility] 0.1 MG INITIAL 44817 [place] [address] EMERGENCY PEDRITO IGN ON SERVICES CARE/DAY 70 [place] [address] [facility] THYROID [address] [place] [address] [facility] [place] [place] [address] [facility] FREE [address] [place] [address] THYROXINE [facility]OSP[facility] NONINVASI 77363 [facility] VE [address] [place] [address] EAR/PULSE HOSPITAL HOSPITAL OXIMETRY SINGLE DETER INJECTION J[address] [facility] SODIUM 500 MG INJECTION J2250 [address] [facility] HCL PER 1 [place] [address] [facility] TROPONIN [address] [place] [address] [facility] [id number] ON HOSPITAL HOSPITAL SERVICE PER HOUR ECG 11751 [facility] ROUTINE 3 [facility] ECG HOSPITAL HOSPITAL W/LEAST 12 LDS TRCG ONLY W/O I&R INJECTION [id number] [facility] SONE SODIUM PHOSPHATE 1 MG INJECTION J2001 [address] [facility] HCL INTRAVENO US INFUS 10 MG HEMORRHOI 21501 [facility] DECTOMY 3 [facility] HOSPITAL RUBBER BAND LIGATIONS ANOSCOPY 70972 CELIA YANG JR DX 3 SAMIRA SAMIRA W/COLLJ SPEC BR/WA SPX WHEN PRFRMD COLLECTIO 53458 [facility] N VENOUS 3 [facility] VENIPUNCT URE INJECTION J2405 CHRISTOPHER WHITE 3 [facility] ON HCL PER 1 MG ANESTHESI 49784 EILEEN Cruz 3 ANESTHESI CAM ANORECTAL A GROUP PS PROCEDURE CREATINE 68567 CHRISTOPHER WHITE KINASE MB 3 [facility] ONLY ECG 46222 CRISTIAN CORNEJO CORNEJO CRISTIAN ROUTINE 3 MD ECG CONSULTIN W/LEAST G SRV 12 LDS I&R ONLY BLOOD 65941 CHRISTOPHER WHITE COUNT 3 [facility] N BASIC 99937 CHRISTOPHER WHITE METABOLIC 3 [facility] CALCIUM TOTAL BLOOD 42589 [facility] JAIN COUNT [address] [place] [address] T COLLECTIO 78443 CHRISTOPHER WHITE N VENOUS 3 [facility] VENIPUNCT URE ECG 59797 CHRISTOPHER WHITE ROUTINE 3 [facility] W/LEAST 12 LDS TRCG ONLY W/O I&R DISPBL [id number] [facility]/KATHIE 3 HOME HOME ELD/GUARD HEALTH HEALTH /PAD/UNDG AGENCY AGENCY RMNT INCONT EA INCONTINE T4541 [facility] NCE 3 HOME HOME PRODUCT HEALTH HEALTH DISPOSABL AGENCY AGENCY E UNDPAD LARGE EA PWR WC K0823 [facility] GRP 2 STD 3 [facility] CORPOR[facility]I CORPORATI CHAIR PT ON ON TO &=300 LBS HOS BED E0260 [facility] SEMI-ELEC 3 HOME HOME W/ANY MEDICAL MEDICAL TYPE SIDE EQUIPME EQUIPME RAIL W/[facility] [address] DAY INTERNAL MANAGEMEN MED T 30 MIN/< SBSQ [id number] CARE/DAY INTERNAL 25 MED MINUTES SBSQ [address] CARE/DAY INTERNAL 25 MED MINUTES RADIOLOGI 83183 [facility] C EXAM 3 LILIBETH CHEST 2 RADIOLOGY VIEWS ASSOCIAT FRONTAL&L ATERAL INITIAL 27028 [facility] 3 [place] TIM[facility]HY CARE/DAY INTERNAL 50 MED MINUTES MAMMOGRAP 92451 [facility], [facility], HY 3 TRAVEL DIRECTOR TRAVEL DIRECTOR UNILATERA ANDREY BALDERAS L CO HOS CO HOS US BREAST 46987 [facility], [facility], REAL 3 TRAVEL DIRECTOR TRAVEL DIRECTOR TIME ANDREY HANSENS W/IMAGE CO HOS CO HOS DOCUMENTA TION MAMMOGRAP 85490 [facility], [employer], HY 3 TRAVEL DIRECTOR TRAVEL DIRECTOR BILATERAL ANDREY ANDREY CO HOS CO HOS PWR WC K0823 [facility] HOVEROUND GRP 2 STD 3 CAPTAINS CORPORATI CORPORATI CHAIR PT ON ON TO &=300 LBS HOS BED E0260 [facility] SEMI-ELEC 3 HOME HOME W/ANY MEDICAL MEDICAL TYPE SIDE EQUIPME EQUIPME RAIL W/MATTRSS SUSCEPTBI 89032 [facility], [facility], LTY STDY 3 TRAVEL DIRECTOR TRAVEL DIRECTOR ANTIMICRB ANDREY BALDERAS IAL AGNT CO HOS CO HOS AGAR DILUTJ RENAL 75219 [facility] [employer], [employer], FUNCTION 3 TRAVEL DIRECTOR TRAVEL DIRECTOR PANEL ANDREY HANSENS CO HOS CO HOS CREATININ 33110 [facility], [facility], E OTHER 3 TRAVEL DIRECTOR TRAVEL DIRECTOR SOURCE ANDREY ANDREY CO HOS CO HOS CULTURE 09186 [facility] [employer], [facility], BCT 3 TRAVEL DIRECTOR TRAVEL DIRECTOR ISOL&PRSM ANDREY BALDERAS PTV ID CO HOS CO HOS ISOLATE EA URINE CULTURE 77532 [facility], [employer], BACTERIAL 3 TRAVEL DIRECTOR TRAVEL DIRECTOR ANDREY BALDERAS QUANTTATI CO HOS CO HOS VE COLONY COUNT URINE 25 77402 [facility], [employer], HYDROXY 3 TRAVEL DIRECTOR TRAVEL DIRECTOR INCLUDES ANDREY BALDERAS FRACTIONS CO HOS CO HOS IF PERFORMED PROTEIN 69846 [facility], [facility], TOTAL 3 TRAVEL DIRECTOR TRAVEL DIRECTOR XCPT ANDREY BALDERAS REFRACTOM [place] [address] [facility] [employer], [facility], PARATHORM 3 TRAVEL DIRECTOR TRAVEL DIRECTOR ONE ANDREY HANSENS CO HOS CO HOS URNLS DIP 97366 [employer], [employer], 3 TRAVEL DIRECTOR TRAVEL DIRECTOR STICK/TAB ANDREY BALDERAS LET CO HOS CO HOS REAGENT AUTO MICROSCOP Y BLOOD 39823 [employer], [employer], COUNT 3 TRAVEL DIRECTOR TRAVEL DIRECTOR COMPLETE ANDREY BALDERAS AUTO&AUTO CO HOS CO HOS DIFRNTL WBC RADEX 13272 [facility]RAJIMMY [facility] ESOPHAGUS 3 [facility] ASS[facility]IAT SCREENING 12189 [place] 3 LILIBETH MAMMOGRAP RADIOLOGY HY ASSOCIAT BILATERAL ADLT SZD T4526 [facility] 3 HOME HOME INCONT HEALTH HEALTH PROD AGENCY AGENCY UNDWEAR MED EA DISPBL T4535 [facility] LINER/KATHIE 3 HOME HOME ELD/GUARD HEALTH HEALTH /PAD/UNDG AGENCY AGENCY RMNT INCONT EA MRI 01782 [facility] 3 Y Y [facility] LUMBAR W/O CONTRAST MATERIAL HOS BED E0260 [facility] YURELL SEMI-ELEC 3 HOME HOME W/ANY MEDICAL MEDICAL TYPE SIDE EQUIPME EQUIPME RAIL W/MATTRSS PWR WC K0823 [facility] HOVEROUND GRP 2 STD 3 CAPTAINS CORPORATI CORPORATI CHAIR PT ON ON TO &=300 LBS COLOREC G0105 CELIA YANG JR CANCR 3 SAMIRA SAMIRA SCR; COLONSC[place] @[place] [address] [facility] KR[facility] INFUSION 3 [facility] THERAPY INC INC PROPHYLAX IS/DX EA HOUR ANES 95233 [facility] 3 ANESTH INTESTINE OF [place] [address] KRISSY KRISSY INFUSION 3 [facility] THERAPY/P INC INC ROPHYLAXI S /DX 1ST TO 1 HR NJX 17705 [facility] DX/THER 3 Y Y AGT PVRT [facility] FACET JT LMBR/SAC 1 LEVEL LOCM Q9967 [facility] [phone] Y Y MG/ML [facility] IODINE CONCENTRA TION PER ML INJECTION J3301 [facility] [address] [facility] LONE ACETONIDE NOS 10 MG ADLT SZD T4526 [facility] 2 [...] LBS HOS BED E0260 [facility] R[facility] SEMI-ELEC 2 HOME HOME W/ANY MEDICAL MEDICAL TYPE SIDE EQUIPME EQUIPME RAIL W/MATTRSS THERAPEUT 04099 [employer], [employer], IC PX 1/> 2 TRAVEL DIRECTOR TRAVEL DIRECTOR AREAS ANDREY ANDREY EACH 15 CO [facility] CO HOS MIN EXERCISES THERAPEUT 35444 [employer], [employer], IC PX 1/> 2 TRAVEL DIRECTOR TRAVEL DIRECTOR AREAS ANDREY ANDREY EACH 15 CO HOS CO HOS MIN EXERCISES INCONTINE T4541 [facility] NCE 2 HOME HOME PRODUCT HEALTH HEALTH DISPOSABL AGENCY AGENCY E UNDPAD LARGE EA THERAPEUT 14088 [employer], [employer], IC PX 1/> 2 TRAVEL DIRECTOR TRAVEL DIRECTOR AREAS ANDREY ANDREY EACH 15 CO HOS CO HOS MIN EXERCISES CREATININ 97572 [employer], [employer], E BLOOD 2 TRAVEL DIRECTOR TRAVEL DIRECTOR [place]RE[place] [address] [employer], [employer], UREA 2 TRAVEL DIRECTOR TRAVEL DIRECTOR NITROGEN ANDREY ANDREY QUANTITAT CO HOS CO HOS KETAN CT THORAX [address] [facility] W/O 2 EIDER DEE CONTRAST RADIOLOGY MATERIAL ASSOCIAT THERAPEUT 91940 [employer], [employer], IC PX 1/> 2 TRAVEL DIRECTOR TRAVEL DIRECTOR AREAS ANDREY ANDREY EACH 15 CO HOS CO HOS MIN EXERCISES HOS BED E0260 [facility] SEMI-ELEC 2 HOME HOME W/ANY MEDICAL MEDICAL TYPE SIDE EQUIPME EQUIPME RAIL W/MATTRSS THERAPEUT 00358 [employer], [employer] INC, IC PX 1/> 2 TRAVEL DIRECTOR TRAVEL DIRECTOR AREAS ANDREY HANSENS EACH 15 [place] [address] [employer], [employer], 1/> AREAS 2 TRAVEL DIRECTOR TRAVEL DIRECTOR EA 15 ANDREY RIVEROOLAS MIN GAIT CO HOS CO HOS TRAINJ W/STAIR RADIOLOGI 28980 [facility], [employer], C EXAM 2 TRAVEL DIRECTOR TRAVEL DIRECTOR CHEST 2 ANDREY ANDREY VIEWS CO HOS CO HOS FRONTAL&L ATERAL THERAPEUT 79317 [employer], [employer], IC PX 1/> 2 TRAVEL DIRECTOR TRAVEL DIRECTOR AREAS ANDREY ANDREY EACH 15 CO HOS CO HOS MIN EXERCISES PHYSICAL 13290 [employer], [employer], THERAPY 2 TRAVEL DIRECTOR TRAVEL DIRECTOR EVALUATIO ANDREY ANDREY N CO HOS CO HOS THERAPEUT 64807 [employer], [employer], IC PX 1/> 2 TRAVEL DIRECTOR TRAVEL DIRECTOR AREAS ANDREY ANDREY EACH 15 [place] [address] [facility] ABDOMEN & 2 MEDICAL SCO PELVIS SERV W/O FOUNDATIO CONTRAST MATERIAL RADEX 73824 [facility] SPINE 2 Y Y LUMBOSACR [facility] AL 2/3 VIEWS C-REACTIV 17723 [facility] E PROTEIN 2 Y Y [facility] RADEX 18644 [facility] SHOULDER 2 Y Y COMPLETE [facility] MINIMUM 2 VIEWS COLLECTIO 95407 [facility] N VENOUS 2 Y Y BLOOD [facility] VENIPUNCT URE RADIOLOGI 42831 [facility] C 2 Y Y EXAMINATI [facility] ON KNEE 1/2 VIEWS SEDIMENTA 04288 [facility] TION RATE 2 Y Y RBC [facility] AUTOMATED CREATINE 76106 [facility] KINASE 2 Y Y TOTAL [facility] [place] [address] [facility] ALDOLASE 2 Y Y [facility] ADLT SZD T4526 [facility] 2 HOME HOME INCONT HEALTH HEALTH PROD AGENCY AGENCY UNDWEAR MED EA DISPBL T4535 [facility]/KATHIE 2 HOME HOME ELD/GUARD HEALTH HEALTH /PAD/UNDG AGENCY AGENCY RMNT INCONT EA BLOOD 15960 [employer], [employer], COUNT 2 TRAVEL DIRECTOR TRAVEL DIRECTOR COMPLETE ANDREY ANDREY AUTO&AUTO CO HOS CO HOS DIFRNTL WBC URNLS DIP 77169 [employer], [employer], 2 TRAVEL DIRECTOR TRAVEL DIRECTOR STICK/TAB ANDREY ANDREY LET CO HOS CO HOS REAGENT AUTO MICROSCOP Y PROTEIN 56479 [facility] [employer], TOTAL 2 TRAVEL DIRECTOR TRAVEL DIRECTOR XCPT ANDREY ANDREY REFRACTOM CO HOS CO HOS ETRY URINE CULTURE 84039 [facility] [employer], BACTERIAL 2 TRAVEL DIRECTOR TRAVEL DIRECTOR ANDREY ANDREY QUANTTATI CO HOS CO HOS VE COLONY COUNT URINE RENAL 55894 [employer], FUNCTION 2 TRAVEL DIRECTOR TRAVEL DIRECTOR PANEL ANDREY ANDREY CO HOS CO HOS CULTURE 50587 [facility] [employer], [employer], BCT 2 TRAVEL DIRECTOR TRAVEL DIRECTOR ISOL&PRSM ANDREY ANDREY PTV ID CO HOS CO HOS ISOLATE EA URINE CREATININ 41832 [employer], E OTHER 2 TRAVEL DIRECTOR TRAVEL DIRECTOR SOURCE ANDREY ANDREY CO HOS CO HOS SUSCEPTBI 49917 [facility] [employer], [employer], LTY STDY 2 TRAVEL DIRECTOR TRAVEL DIRECTOR ANTIMICRB ANDREY ANDREY IAL AGNT CO HOS CO HOS AGAR DILUTJ BASIC 37538 [employer], [employer], METABOLIC 2 TRAVEL DIRECTOR TRAVEL DIRECTOR PANEL ANDREY ANDREY CALCIUM CO HOS CO HOS TOTAL BLOOD 42939 [facility] [employer] INC, COUNT 2 TRAVEL DIRECTOR TRAVEL DIRECTOR COMPLETE ANDREY ANDREY AUTO&[place] [address] [employer], INFUSION 2 TRAVEL DIRECTOR TRAVEL DIRECTOR THERAPY/P ANDREY ANDREY ROPHYLAXI CO HOS CO HOS S /DX 1ST TO 1 [place] [address] [employer], INFUSION 2 TRAVEL DIRECTOR TRAVEL DIRECTOR HYDRATION ANDREY ANDREY INITIAL CO HOS CO HOS 31 MIN-1 [place] [address] [employer], LIPASE 2 TRAVEL DIRECTOR TRAVEL DIRECTOR ANDREY ANDREY CO HOS CO HOS URNLS DIP 10177 [employer], 2 TRAVEL DIRECTOR TRAVEL DIRECTOR STICK/TAB ANDREY ANDREY LET CO HOS CO HOS REAGENT AUTO MICROSCOP Y DIRECT G0379 [facility] [employer] [facility], ADMISSION 2 TRAVEL DIRECTOR TRAVEL DIRECTOR PATIENT [facility] CO HOS CO HOS OBSERV CARE BLOOD 74890 [facility] [employer], [facility], COUNT 2 TRAVEL DIRECTOR TRAVEL DIRECTOR COMPLETE ANDREY BALDERAS AUTO&AUTO CO HOS CO HOS DIFRNTL [facility] G0378 [facility] [employer] [facility], OBSERVATI 2 TRAVEL DIRECTOR TRAVEL DIRECTOR ON ANDREY BALDERAS SERVICE CO HOS CO HOS PER HOUR SUSCEPTBI 70865 [facility] [employer] [facility], LTY STDY 2 TRAVEL DIRECTOR TRAVEL DIRECTOR ANTIMICRB ANDREY BALDERAS IAL AGNT CO HOS CO HOS AGAR DILUTJ COMPREHEN 10799 [facility] [employer], [facility] [employer], SIVE 2 TRAVEL DIRECTOR TRAVEL DIRECTOR METABOLIC ANDREY RIVEROOLAS PANEL CO HOS CO HOS CULTURE 82676 [employer] [facility] [employer], BCT 2 TRAVEL DIRECTOR TRAVEL DIRECTOR ISOL&PRSM ANDREY BALDERAS PTV ID CO HOS CO HOS ISOLATE EA URINE CULTURE 28292 [facility] [employer], BACTERIAL 2 TRAVEL DIRECTOR TRAVEL DIRECTOR ANDREY ANDREY QUANTTATI CO HOS CO HOS VE COLONY COUNT URINE INJECTION J2405 [facility] [employer], 2 TRAVEL DIRECTOR TRAVEL DIRECTOR ONDANSETR ANDREY BALDERAS ON HCL CO HOS CO HOS PER 1 MG ADLT SZD T4526 [facility] 2 HOME HOME INCONT HEALTH HEALTH PROD AGENCY AGENCY UNDWEAR MED EA DISPBL T4535 [facility]/KATHIE 2 HOME HOME ELD/GUARD HEALTH HEALTH /PAD/UNDG AGENCY AGENCY RMNT INCONT EA ECG 97247 CRISTIAN CORNEJO CORNEJO CRISTIAN ROUTINE 2 MD ECG CONSULTIN W/LEAST G SRV 12 LDS I&R ONLY ECG 11954 CRISTIAN CORNEJO CORNEJO CRISTIAN ROUTINE 2 MD ECG CONSULTIN W/LEAST G SRV 12 LDS I&R ONLY HOSPITAL 74824 JAVIER JAVIER DISCHARGE 2 PEDRO PEDRO DAY MANAGEMEN T 30 MIN/< URNLS DIP 92533 [facility] [employer] [facility] [employer], 2 TRAVEL DIRECTOR TRAVEL DIRECTOR STICK/TAB ANDREY ANDREY LET CO HOS CO HOS REAGENT AUTO MICROSCOP Y BLOOD 24523 [facility], [employer], COUNT 2 TRAVEL DIRECTOR TRAVEL DIRECTOR COMPLETE ANDREY ANDREY AUTO&AUTO CO HOS CO HOS DIFRNTL WBC NATRIURET 03307 [facility], [employer], IC 2 TRAVEL DIRECTOR TRAVEL DIRECTOR PEPTIDE [place]RE[place] [address] [facility], [employer], TROPONIN 2 TRAVEL DIRECTOR TRAVEL DIRECTOR QUANTITAT ANDREY ANDREY KETAN CO HOS CO HOS CREATINE 43556 [facility], [facility], KINASE 2 TRAVEL DIRECTOR TRAVEL DIRECTOR TOTAL [place] [address] [facility], [employer], INFUSION 2 TRAVEL DIRECTOR TRAVEL DIRECTOR HYDRATION ANDREY ANDREY INITIAL CO HOS CO HOS 31 MIN-1 HOUR CULTURE 17421 [facility], [facility], BACTERIAL 2 TRAVEL DIRECTOR TRAVEL DIRECTOR ANDREY ANDREY QUANTTATI CO HOS CO HOS VE COLONY COUNT URINE RADIOLOGI 68593 [facility], [facility], C 2 TRAVEL DIRECTOR TRAVEL DIRECTOR EXAMINATI ANDREY ANDREY ON CHEST CO HOS CO HOS [place] FRONTAL CULTURE 65448 [facility], [facility], BCT 2 TRAVEL DIRECTOR TRAVEL DIRECTOR ISOL&PRSM ANDREY ANDREY PTV ID CO HOS CO HOS ISOLATE EA URINE CREATINE 65686 [employer], [employer], KINASE MB 2 TRAVEL DIRECTOR TRAVEL DIRECTOR FRACTION ANDREY ANDREY ONLY CO HOS CO HOS FIBRIN 30748 [facility], [employer], DGRADJ 2 TRAVEL DIRECTOR TRAVEL DIRECTOR PRODUCTS ANDREY ANDREY D-DIMER CO HOS CO HOS QUAL/SEMI HEATHER PROTHROMB 84636 [facility], [employer], IN TIME 2 TRAVEL DIRECTOR TRAVEL DIRECTOR ANDREY ANDREY CO HOS CO HOS COMPREHEN 49745 [facility], [employer], SIVE 2 TRAVEL DIRECTOR TRAVEL DIRECTOR METABOLIC ANDREY ANDREY PANEL CO HOS CO HOS SUSCEPTBI 80366 [facility], [employer], LTY STDY 2 TRAVEL DIRECTOR TRAVEL DIRECTOR ANTIMICRB ANDREY ANDREY IAL AGNT CO HOS CO HOS AGAR DILUTJ ECG 17510 [facility], [employer], ROUTINE 2 TRAVEL DIRECTOR TRAVEL DIRECTOR ECG ANDREY ANDREY W/LEAST CO HOS CO HOS 12 LDS TRCG ONLY W/[place] [address] [facility], [facility] INC, INFUSION 2 TRAVEL DIRECTOR TRAVEL DIRECTOR THERAPY/P ANDREY ANDREY ROPHYLAXI CO HOS CO HOS S /DX 1ST TO 1 HR COMPREHEN 19098 [facility], [facility], SIVE 2 TRAVEL DIRECTOR TRAVEL DIRECTOR METABOLIC ANDREY ANDREY PANEL CO HOS CO HOS LIPID 16114 [facility], [facility], PANEL 2 TRAVEL DIRECTOR TRAVEL DIRECTOR [place]RE[place] [address] [facility], [facility] INC, FREE 2 TRAVEL DIRECTOR TRAVEL DIRECTOR THYROXINE ANDREY [place] [address] [facility], [facility], THYROID 2 TRAVEL DIRECTOR TRAVEL DIRECTOR STIMULATI ANDREY ANDREY NG CO HOS CO HOS HORMONE TSH ECG 92129 CRISTIAN CORNEJO CORNEJO CRISTIAN ROUTINE 2 MD ECG CONSULTIN W/LEAST G SRV 12 LDS I&R ONLY URNLS DIP 06725 [facility], [facility] INC, 2 TRAVEL DIRECTOR TRAVEL DIRECTOR STICK/TAB ANDREY ANDREY LET CO HOS CO HOS REAGENT AUTO MICROSCOP Y ARTERIAL 19376 [facility] [employer], [facility] INC, PUNCTURE 2 TRAVEL DIRECTOR TRAVEL DIRECTOR WITHDRAWA ANDREY ANDREY L BLOOD CO HOS CO HOS DX GASES 88714 [facility] [employer], [facility] INC, BLOOD PH 2 TRAVEL DIRECTOR TRAVEL DIRECTOR DIRECT ANDREY HANSENS FELA XCPT CO HOS CO HOS PULSE OXIMITRY CULTURE 09081 [facility] [employer], [facility] INC, BACTERIAL 2 TRAVEL DIRECTOR TRAVEL DIRECTOR ANDREY ANDREY QUANTTATI CO HOS CO HOS VE COLONY COUNT URINE INJECTION J2280 [facility] [employer], [facility], 2 TRAVEL DIRECTOR TRAVEL DIRECTOR MOXIFLOXA ANDREY ANDREY KJ 100 CO HOS CO HOS MG COMPREHEN 59007 [facility] [employer], [facility] INC, SIVE 2 TRAVEL DIRECTOR TRAVEL DIRECTOR METABOLIC ANDREY ANDREY PANEL CO HOS CO HOS ECG 23279 [facility], [facility] INC, ROUTINE 2 TRAVEL DIRECTOR TRAVEL DIRECTOR ECG ANDREY ANDREY W/LEAST CO HOS CO HOS 12 LDS TRCG ONLY W/O I&R RADIOLOGI 74567 [facility], [facility], C EXAM 2 TRAVEL DIRECTOR TRAVEL DIRECTOR CHEST 2 ANDREY ANDREY VIEWS CO HOS CO HOS FRONTAL&L ATERAL RADIOLOGI 14969 [facility] EXAM 2 LILIBETH CHEST 2 RADIOLOGY VIEWS ASSOCIAT FRONTAL&L ATERAL SUSCEPTBI 94868 [facility] [employer], [facility] INC, LTY STDY 2 TRAVEL DIRECTOR TRAVEL DIRECTOR ANTIMICRB ANDREY BALDERAS IAL AGNT CO HOS CO HOS AGAR DILUTJ CULTURE 32844 [facility] [employer], [facility] INC, BCT 2 TRAVEL DIRECTOR TRAVEL DIRECTOR ISOL&PRSM ANDREY BALDERAS PTV ID CO HOS CO HOS ISOLATE EA URINE BASIC 74032 [facility] [employer], METABOLIC 2 TRAVEL DIRECTOR TRAVEL DIRECTOR PANEL ANDREY BALDERAS [place] [address] [facility] [employer] [facility] [employer], INFUSION 2 TRAVEL DIRECTOR TRAVEL DIRECTOR HYDRATION ANDREY BALDERAS EACH [place] [address] [facility] [employer], [facility] INC, INFUSION 2 TRAVEL DIRECTOR TRAVEL DIRECTOR HYDRATION ANDREY BALDERAS INITIAL CO HOS CO HOS 31 MIN-1 HOUR BLOOD 05559 [facility] [employer], [facility] [employer], COUNT 2 TRAVEL DIRECTOR TRAVEL DIRECTOR COMPLETE ANDREY BALDERAS AUTO&AUTO CO HOS CO HOS DIFRNTL [facility] G0378 [facility] [employer] [facility] [employer], OBSERVATI 2 TRAVEL DIRECTOR TRAVEL DIRECTOR ON ANDREY BALDERAS [place] [address] [facility] [employer], [facility] [employer], INFUSION 2 TRAVEL DIRECTOR TRAVEL DIRECTOR THERAPY/P ANDREY BALDERAS ROPHYLAXI CO HOS CO HOS S /DX 1ST TO 1 HR TECHNETIU A9500 [facility] TC-99M 2 Y Y [facility] DX PER STUDY DOSE INJECTION J0280 [facility] 2 Y Y [facility] ALEXANDER UP TO 250 MG MYOCARDIA 24873 [facility] SPECT 2 Y Y [facility] STUDIES CV STRS 95710 [facility] PICHARDO TST 2 MEDICAL SAMIRA XERS&/OR SERV RX CONT FOUNDATIO ECG W/O I&R CV STRS 52698 [facility] 2 Y Y XERS&/OR [facility] RX CONT ECG TRCG ONLY INJECTION J2785 [facility] 2 Y Y [facility] ON 0.1 MG CV STRS 04644 [place] PICHARDO TST 2 MEDICAL SAMIRA XERS&/OR SERV RX CONT [place] ECG I[place] [address] [place] DISANTIS ABDOMEN & 2 MEDICAL JEWELS PELVIS SERV W/O FOUNDATIO CONTRAST MATERIAL ECG 76617 CRISTIAN CORNEJO CORNEJO CRISTIAN ROUTINE 2 MD ECG CONSULTIN W/LEAST G SRV 12 LDS I&R ONLY URINLS 41959 [facility] DAVEY DIP 2 NURSE GWE STICK/TAB PRACTITIO LET NER GR REAGNT NON-AUTO MICRSCPY SUSCEPTBI 92785 [facility] STDY 2 [facility] I[facility] AGNT AGAR DILUTJ SUSCEPTIB 00267 [facility] 2 Y [facility] MICRO/AGA R DILUTJ CULTURE 73378 [facility] BACTERIAL 2 Y Y [facility] QUANTTATI VE COLONY COUNT URINE CUL BACT 62219 [facility] AEROBIC 2 Y Y [facility] METHS DEFINITIV E EA ISOL ECG 08483 CRISTIAN CORNEJO CORNEJO CRISTIAN ROUTINE 2 MD ECG CONSULTIN W/LEAST G SRV 12 LDS I&R ONLY ECG 59011 CRISTIAN CORNEJO CORNEJO CRISTIAN ROUTINE 1 MD ECG CONSULTIN W/LEAST G SRV 12 LDS I&R ONLY ECG 97053 CRISTIAN CORNEJO CORNEJO CRISTIAN ROUTINE 1 MD ECG CONSULTIN W/LEAST G SRV 12 LDS I&R ONLY BLOOD 85409 ANDREY CHAVARRIA 1 CO CO SMEAR [facility] MCRSCP W/[place] [address] ANDREY BALDERAS BLOOD/URI 1 CO CO C ACID [facility] URNLS DIP 19998 ANDREY BALDERAS 1 CO CO STICK/TAB [facility] LET REAGENT AUTO MICROSCOP Y BLOOD 12604 ANDREY BALDERAS COUNT 1 CO CO COMPLETE [facility] AUTO&AUTO DIFRNTL WBC PROTEIN 73046 ANDREY BALDERAS TOTAL 1 CO CO XCPT [facility] [place] [address] ANDREY BALDERAS PHOSPHORU 1 CO CO S HOSPITAL HOSPITAL INORGANIC CULTURE 18436 ANDREY BALDERAS BACTERIAL 1 CO CO [facility] QUANTTATI VE COLONY COUNT URINE COLLECTIO 33602 ANDREY BALDERAS N VENOUS 1 CO CA BLOOD [facility] VENIPUNCT URE CULTURE 94808 ANDREY BALDERAS BCT 1 CO CO ISOL&PRSM [facility] PTV ID ISOLATE EA URINE CREATININ 82409 ANDREY Bolivar OTHER 1 CO CO SOURCE [facility] SUSCEPTBI 94297 ANDREY BALDERAS LTY STDY 1 CO CA ANTIMICRB [facility] IAL AGNT AGAR DILUTJ COMPREHEN 96778 ANDREY BALDERAS SIVE 1 CO [facility] PANEL DUP-SCAN 60569 [place] MARIO XTR VEINS 1 [facility] FOUNDATIO L/LIMITED STUDY RADIOLOGI 56326 [place] [facility] C EXAM 1 MEDICAL CHEST 2 SERV VIEWS FOUNDATIO FRONTAL&L ATERAL ECG 47802 [place] OLIVEIRA ROUTINE 1 MEDICAL NAN ECG SERV W/LEAST FOUNDATIO 12 LDS I&R ONLY HOSPITAL 94036 [facility] DISCHARGE 1 [place] FAMILY DAY MEDICINE MANAGEMEN P T 30 MIN/< BLOOD 90398 ANDREY BALDERAS COUNT 0 CO CO SMEAR [facility] MCRSCP W/MNL DIFRNTL WBC COUNT URNLS DIP 50978 ANDREY BALDERAS 0 CO CO STICK/TAB [facility] LET REAGENT AUTO MICROSCOP Y PROTEIN 83790 ANDREY BALDERAS TOTAL 0 CO CO XCPT [facility] [place] [address] ANDREY BALDERAS PARATHORM [address] [facility] CREATINE 09844 ANDREY BALDERAS KINASE 0 CO CO TOTAL [facility] 25 95083 ANDREY BALDERAS HYDROXY 0 CO CO [facility] [address] ANDREY BALDERAS ALDOLASE [address] [facility] C-REACTIV 79542 ANDREY Bolivar PROTEIN 0 CO CO [facility]OSPITAL DNA 92440 ANDREY BALDERAS ANTIBODY 0 CO [facility] UBLE STRANDED RADEX HIP 85200 [facility] BALDERAS 0 [facility] L COMPLETE MINIMUM 2 VIEWS SEDIMENTA 51679 ANDREY BALDERAS TION RATE 0 CO [facility] NON-AUTOM ATED COMPLEMEN 06075 ANDREY BALDERAS T ANTIGEN 0 CO [facility] COMPONENT CREATININ 82917 ANDREY Bolivar OTHER 0 CO [facility] OVA&ZONIA 41579 ANDREY BALDERAS ITES 0 CO CO DIRECT [facility] SMEARS CONCENTRA TION & ID RENAL [id number] ANDREY BALDERAS FUNCTION 0 CO CO [facility] COLLECTIO 06406 ANDREY BALDERAS N VENOUS 0 CO CO BLOOD [facility] VENIPUNCT URE COMPLEMEN 39820 ANDREY BALDERAS T TOTAL 0 CO CO HEMOLYTIC [facility] RADIOLOGI 73081 ANDREY BALDERAS C [address] [facility] ON PELVIS 1/2 VIEWS RADIOLOGI 18183 ANDREY BALDERAS C [address] [facility] ON KNEE 3 VIEWS COLLECTIO 40154 UNIVERSIT UNIVERSIT N VENOUS 0 Y Y BLOOD [facility] VENIPUNCT URE COMPREHEN 38620 UNIVERSIT UNIVERSIT SIVE 0 Y Y METABOLIC [facility] PANEL BLOOD 37207 UNIVERSIT UNIVERSIT COUNT 0 Y Y COMPLETE [facility] AUTO&AUTO DIFRNTL WBC BLOOD 02612 UNIVERSIT UNIVERSIT COUNT 0 Y Y [facility] AUTO&AUTO DIFRNTL WBC COMPREHEN 99580 UNIVERSIT UNIVERSIT SIVE 0 Y Y METABOLIC [facility] PANEL COLLECTIO 97895 UNIVERSIT UNIVERSIT N VENOUS 0 Y Y BLOOD [facility] VENIPUNCT URE CHROMATOG 66748 UNIVERSIT UNIVERSIT SURYA 0 Y Y HEATHER [facility] COLUMN 1 ANALYTE KARLENE CATARACT 51629 [facility] REMOVAL 0 LTH EYE LT EYE INSERTION SURG SURG OF LENS AMBULA AMBULA ANESTHESI 33342 SUREKHA MOORE G A EYE 0 ANESTHESI LENS A ASSOC SURGERY OPH BMTRY 71955 PHILIPP RIVERO BRANT PRTL 0 ROBERT COHER INTRFRMTR Y IO LENS [facility] [place] ECG [facility] Y Y ECG [facility] W/LEAST 12 LDS TRCG ONLY W/O I&R Encounters Encounter Start End Date Code Location Performer Type Date [facility], 7 7 HOME INPATIENT HEALTH [facility] 7 7 [facility] OUTPATIEN INC T OFFICE [id number] [place] OUTPATIEN 7 7 MEDICAL T VISIT SERV 25 FOUNDATIO MINUTES [facility] - 7 7 [facility] [place] [place] [facility] OUTPATIEN INC [facility] 7 7 HOME INPATIENT HEALTH AGENCY OFFICE [address] [place] OUTPATIEN 7 7 MEDICAL JR T NEW 45 SERV MINUTES FOUNDATIO OFFICE [address] [place] HER[place] OUTPATIEN 7 7 MEDICAL T VISIT SERV 40 FOUNDATIO MINUTES [facility], 7 7 HOME INPATIENT HEALTH AGENCY OFFICE 81861 [place] HERBERT OUTPATIEN 7 7 MEDICAL T VISIT SERV 40 FOUNDATIO MINUTES [facility] - 7 7 HEALTHCAR OUTPATIEN E [facility], 7 7 HOME INPATIENT HEALTH AGENCY OFFICE 10051 MINH WILMER AMADOR OUTPATIEN 6 6 MEDICAL T VISIT SERV 25 FOUNDATIO MINUTES [facility] KRISSY - 6 6 [facility] OUTPATIEN INC T OFFICE 68882 [facility] NAVEEN HAYS OUTPATIEN 6 6 PHYSICIAN T VISIT S GROUP 10 MINUTES HOSPITAL KR[facility]SY - 6 6 [facility] T OFFICE 18914 [facility] HODGE MAD OUTPATIEN 6 6 PHYSICIAN T VISIT S GROUP 10 MINUTES OFFICE 70921 [facility] HODGE MAD OUTPATIEN 6 6 PHYSICIAN T VISIT S GROUP 15 MINUTES HOSPITAL KRISSY - 6 6 [facility] OUTPATIEN [facility] OFFICE 35201 [facility] HODGE MAD OUTPATIEN 6 6 PHYSICIAN T NEW 30 S GROUP MINUTES HOSPITAL KRISSY [facility] 6 6 [facility] OUTPATIEN [facility] KRISSY - 6 6 [facility] OUTPATIEN [facility] UNIVERSIT [facility] 6 6 [facility] T OFFICE 20999 [place] HERBERT SIMEONI OUTPATIEN 6 6 MEDICAL T VISIT SERV 25 FOUNDATIO MINUTES [facility], 6 6 HOME INPATIENT HEALTH AGENCY EMERGENCY 69912 [facility] DEPT 6 6 HARIS VISIT EMERGENCY HIGH PHYS SEVERITY& [facility], 6 6 HOME INPATIENT HEALTH AGENCY OFFICE 84731 [place] HER[place] SIMEONI OUTPATIEN 6 6 MEDICAL T VISIT SERV 40 FOUNDATIO MINUTES [facility] UNIVERSIT - 6 6 Y [facility] T OFFICE 00903 [place] JAQUEZ OUTPATIEN 6 6 [facility] T VISIT INTERNAL 15 MEDI MINUTES HOSPITAL KRISSY - OTHER 6 6 [facility] HOME [facility], 6 6 HOME INPATIENT HEALTH AGENCY OFFICE 79146 [place] YOVANY OUTPATIEN 6 6 [facility] NICOLA T VISIT INTERNAL 15 MEDI MINUTES OFFICE 42893 [place] WILMER AMADOR OUTPATIEN 6 6 MEDICAL T VISIT SERV 25 FOUNDATIO MINUTES HOSPITAL KRISSY - OTHER 6 6 [facility] INC OFFICE 08293 [place] LUJAN OUTPATIEN 6 6 YONY KRIS T NEW 30 MINUTES HOME [facility] HEALTH, 6 6 HOME INPATIENT HEALTH [facility] KRISSY - 6 6 [facility] OUTPATIEN INC T OFFICE 51634 [place] BESSON OUTPATIEN 6 6 [facility]LEY TIMOTHY T VISIT INTERNAL 25 MED MINUTES HOSPITAL UNIVERSIT - 5 5 Y [facility] T OFFICE 59439 MINH ARGUETA OUTPATIEN 5 5 MEDICAL T VISIT SERV 40 FOUNDATIO MINUTES N EMERGENCY 50245 KRISSY 5 5 [facility] T VISIT HIGH/URGE NT SEVERITY EMERGENCY 05804 TONIO JACKSON DEPT 5 5 PHYSICIAN U CAROL VISIT S, [facility] HIGH SEVERITY& THREAT [facility] KRISSY - 5 5 [facility] OUTPATIEN INC [facility], 5 5 HOME INPATIENT HEALTH AGENCY OFFICE 04098 [facility] 5 5 PHYSICIAN T VISIT S GROUP 15 MINUTES HOME [facility], 5 5 HOME INPATIENT HEALTH AGENCY OFFICE 00257 [place] BESSON OUTPATIEN 5 5 [facility] T VISIT INTERNAL 15 MED MINUTES HOSPITAL KRISSY - 5 5 [facility] OUTPATIEN INC T OFFICE 02893 [facility] SOPHIE TOD OUTPATIEN 5 5 PHYSICIAN T NEW 30 S GROUP MINUTES HOSPITAL KRISSY - 5 5 [facility] OUTPATIEN INC [facility] KRISSY - 5 5 [facility] OUTPATIEN INC T OFFICE 38627 MINH AMADOR OUTPATIEN 5 5 MEDICAL T VISIT SERV 25 FOUNDATIO MINUTES N OFFICE 93587 [place] JAQUEZ OUTPATIEN 5 5 [facility] H[facility] T VISIT INTERNAL 15 MEDI MINUTES HOSPITAL KRISSY - OTHER 5 5 [facility] INC OFFICE 19085 [place] JAQUEZ OUTPATIEN 5 5 [facility] T VISIT INTERNAL 25 MEDI MINUTES HOME [facility] HEALTH, 5 5 HOME INPATIENT HEALTH AGENCY HOME [facility] HEALTH, 5 5 DIST OTHER HEALTH DEPT [facility] KRISSY - 5 5 [facility] OUTPATIEN INC T HOME [facility] HEALTH[facility] 5 5 DIST OTHER HEALTH DEPT [facility] HEALTH, 5 5 HOME INPATIENT HEALTH AGENCY HOME [facility] HEALTH, 5 5 DIST OTHER HEALTH DEPT [facility] OFFICE 05931 MINH ARGUETA OUTPATIEN 5 5 MEDICAL T VISIT SERV 40 FOUNDATIO MINUTES HOSPITAL KRISSY - 5 5 [facility] OUTPATIEN INC T EMERGENCY 35981 KRISSY 5 5 [facility] DEPARTMEN INC T VISIT HIGH/URGE NT SEVERITY [place]AP[place] [facility] HEALTH, 5 5 DIST OTHER HEALTH DEPT [facility] HEALTH, 5 5 DIST OTHER HEALTH DEPT [facility] HOME [facility] HEALTH, 5 5 HOME OUTPATIEN HEALTH T AGENCY OFFICE 00334 [place] BESSON OUTPATIEN 5 5 [facility]LEY TIMOTHY T VISIT INTERNAL 15 MED MINUTES HOME [facility] HEALTH, 5 5 DIST OTHER HEALTH DEPT [facility] HOME [facility] HEALTH, 5 5 DIST OTHER HEALTH DEPT [facility] OFFICE 81301 MINH AMADOR OUTPATIEN 5 5 MEDICAL T VISIT SERV 25 FOUNDATIO MINUTES N HOME [facility] HEALTH, 5 5 DIST OTHER HEALTH DEPT PROCESSING ARCHIVIST HOME [facility] HEALTH, 5 5 HOME OUTPATIEN HEALTH T AGENCY OFFICE 81450 [place] HERBERT KRI OUTPATIEN 5 5 MEDICAL T VISIT SERV 40 FOUNDATIO MINUTES N HOME [facility] HEALTH, 5 5 DIST OTHER HEALTH DEPT PROCESSING ARCHIVIST HOME [facility] HEALTH, 4 4 HOME OUTPATIEN HEALTH T AGENCY HOME [facility] HEALTH, 4 4 DIST OTHER HEALTH DEPT PROCESSING ARCHIVIST HOME [facility] HEALTH, 4 4 DIST OTHER HEALTH DEPT PROCESSING ARCHIVIST OFFICE 58464 [place] HER[place] ELLIE OUTPATIEN 4 4 MEDICAL T VISIT SERV 15 FOUNDATIO MINUTES N HOME [facility] HEALTH, 4 4 HOME OUTPATIEN HEALTH T AGENCY OFFICE 87765 [place] WILMER AMADOR OUTPATIEN 4 4 MEDICAL T VISIT SERV 25 FOUNDATIO MINUTES HOSPITAL KRISSY - 4 4 [facility] OUTPATIEN INC T HOSPITAL KRISSY - 4 4 [facility] OUTPATIEN INC T HOME [facility] HEALTH, 4 4 DIST OTHER HEALTH DEPT PROCESSING ARCHIVIST HOME [employer] [facility], 4 4 DIST OTHER HEALTH DEPT [facility] HOME [facility] HEALTH, 4 4 HOME OUTPATIEN HEALTH T AGENCY HOME [facility] HEALTH, 4 4 DIST OTHER HEALTH DEPT PROCESSING ARCHIVIST OFFICE 42944 [place] GUILLEN PERRY OUTPATIEN 4 4 MEDICAL T VISIT SERV 25 FOUNDATIO MINUTES OFFICE 28821 [place] HER[place] KRI OUTPATIEN 4 4 MEDICAL T VISIT SERV 25 FOUNDATIO MINUTES HOSPITAL KRISSY - 4 4 [facility] OUTPATIEN INC T HOME [facility] HEALTH, 4 4 DIST OTHER HEALTH DEPT PROCESSING ARCHIVIST HOME [facility], 4 4 DIST OTHER HEALTH DEPT PROCESSING ARCHIVIST HOME [facility], 4 4 HOME OUTPATIEN HEALTH T AGENCY HOME [facility], 4 4 DIST OTHER HEALTH DEPT PROCESSING ARCHIVIST OFFICE 26613 [place] HERBERT ARGUETA OUTPATIEN 4 4 MEDICAL T VISIT SERV 40 FOUNDATIO MINUTES HOME [facility], 4 4 DIST OTHER HEALTH DEPT PROCESSING ARCHIVIST OFFICE 87795 [place] WILMER AMADOR OUTPATIEN 4 4 MEDICAL T VISIT SERV 25 FOUNDATIO MINUTES CRITICAL [facility] ACCESS 4 4 [facility], 4 4 DIST OTHER HEALTH DEPT PROCESSING ARCHIVIST HOME [facility] HEALTH, 4 4 HOME OUTPATIEN HEALTH T AGENCY HOME [facility], 4 4 DIST OTHER HEALTH DEPT PROCESSING ARCHIVIST OFFICE 83354 [place] [facility] 4 4 VALLEY TIMOTHY T VISIT INTERNAL 15 MED MINUTES HOME [facility] HEALTH, 4 4 HOME OUTPATI HEALTH T AGENCY HOME [facility] HEALTH, 4 4 DIST OTHER HEALTH DEPT [facility]ERSIT - 3 3 [facility] 92152 MINH AMADOR OUTPATIEN 3 3 MEDICAL T VISIT SERV 25 FOUNDATIO MINUTES CRITICAL [facility], ACCESS 3 3 [facility] CR[facility]ICAL [facility], ACCESS 3 3 [facility] HOME [facility], 3 3 DIST OTHER HEALTH DEPT PROCESSING ARCHIVIST OFFICE 79195 [place] HEBER OUTPATIEN 3 3 MEDICAL EJ T NEW 45 SERV MINUTES FOUNDATIO HOME [facility] DIST OTHER HEALTH DEPT PROCESSING ARCHIVIST CRITICAL [facility], ACCESS 3 3 [facility] HOME [facility] HEALTH, 3 3 HOME OUTPATIEN HEALTH T AGENCY OFFICE 00421 [place] HERBERT ARGUETA OUTPATIEN 3 3 MEDICAL T VISIT SERV 40 FOUNDATIO MINUTES HOME [facility] HEALTH, 3 3 DIST OTHER HEALTH DEPT PROCESSING ARCHIVIST OFFICE 03611 MINH AMADOR OUTPATIEN 3 3 MEDICAL T VISIT SERV 25 FOUNDATIO MINUTES HOME [facility], 3 3 DIST OTHER HEALTH DEPT [facility] CRITICAL [facility], ACCESS [address] [facility] HOSPITAL [facility] CRITICAL [facility], ACCESS 3 3 TRAVEL DIRECTOR HOSPITAL [facility] CRITICAL [facility] ACCESS 3 3 [facility] HOS HOME [facility] 3 3 DIST OTHER HEALTH DEPT PROCESSING ARCHIVIST OFFICE 99129 [place] BESSON OUTPATIEN 3 3 [facility]LEY TIMOTHY T VISIT INTERNAL 15 MED MINUTES HOME [facility], 3 3 HOME OUTPATIEN HEALTH T AGENCY HOME [facility] [employer], 3 3 DIST OTHER HEALTH DEPT PROCESSING ARCHIVIST OFFICE 51681 ALLRAN JR ALLRAN JR OUTPATIEN 3 3 SAMIRA SAMIRA T VISIT 15 MINUTES OFFICE 75440 CRISTIAN CLEMENTE MURILLO CAR OUTPATIEN 3 3 MD T VISIT CONSULTIN 25 G SERV MINUTES OFFICE 96771 [place] BESSON OUTPATIEN 3 3 VAL[facility] TIMOTHY T VISIT INTERNAL 25 MED MINUTES CRITICAL [facility], ACCESS 3 3 [facility] [place] - 3 3 [facility] T CR[facility]ICAL [facility], ACCESS 3 3 [facility] - 3 3 [facility] 3 3 [facility] HOME [facility] 3 3 DIST OTHER HEALTH DEPT [facility] [place] - 3 3 [facility] [place] - 3 3 [facility] 3 3 DIST OTHER [facility] - 3 3 [facility] OFFICE 80649 [facility] 3 3 [facility] T VISIT INTERNAL 15 MED MINUTES HOSPITAL [place] - 3 3 [facility] [place] - 3 3 [facility] 3 3 DIST OTHER [facility] OFFICE 63893 [facility] 3 3 [facility] SAMIRA T VISIT 15 MINUT[facility] HOME [facility] HEALTH, 3 3 DIST OTHER HEALTH DEPT [facility] HEALTH, 3 3 HOME [facility] T AGENCY CRITICAL [facility], ACCESS 3 3 [facility] HOME [facility] HEALTH, 3 3 DIST OTHER HEALTH DEPT [facility] CRITICAL [facility], ACCESS 3 3 [facility] OFFICE 71700 MINH AMADOR [facility] 3 3 MEDICAL T VISIT SERV 25 FOUNDATIO MINUTES OFFICE 59706 CELIA YANG JR OUTPATIEN 3 3 SAMIRA SAMIRA T VISIT 15 MINUTES CRITICAL [facility], ACCESS 3 3 [facility] H[facility] HOME [facility] HEALTH, 3 3 DIST OTHER HEALTH DEPT [facility] CRITICAL [facility], ACCESS 3 3 [facility] CR[facility]ICAL [facility], ACCESS 3 3 [facility] H[facility] HOME [facility] HEALTH, 3 3 HOME OUTPATI HEALTH T AGENCY [facility] - 3 3 [facility] 3 3 [facility] OUTPATIEN INC T HOME [facility] HEALTH, 3 3 DIST OTHER HEALTH DEPT [facility] UN[facility]ERSIT - 3 3 [facility] T OFFICE 65897 MINH HERBERT ARGUETA OUTPATIEN 2 2 MEDICAL T VISIT SERV 25 FOUNDATIO MINUTES HOME [facility] HEALTH, 2 2 [facility] T AGENCY OFFICE 37865 CELIA YANG JR OUTPATIEN 2 2 SAMIRA SAMIRA T NEW 30 MINUTES HOME [facility] HEALTH, 2 2 DIST OTHER HEALTH DEPT [facility] HOME [facility] HEALTH, 2 2 HOME OUTPATI HEALTH T AGENCY CR[facility]ICAL [facility], ACCESS 2 2 [facility] CR[facility]ICAL [facility], ACCESS 2 2 [facility] CR[facility]ICAL [facility], ACCESS 2 2 [facility] CR[facility]ICAL [facility], ACCESS 2 2 [facility] HOS OFFICE 39207 MINH LUZMARIA OUTPATIEN 2 2 MEDICAL XOCHITL T VISIT SERV 15 FOUNDATIO MINUTES HOSPITAL UNIVERSIT - 2 2 Y OUTPATIEN HOSPITAL T HOME [facility] HEALTH, 2 2 DIST OTHER HEALTH DEPT [facility] OFFICE 76142 [place] HERBERT ARGUETA OUTPATIEN 2 2 MEDICAL T VISIT SERV 25 FOUNDATIO [facility] UNIVERSIT - 2 2 Y OUTPATIEN HOSPITAL T HOME [facility] HEALTH, 2 2 HOME OUTPATIEN HEALTH T AGENCY OFFICE 08205 [place] WILMER DE GUZMANN OUTPATIEN 2 2 MEDICAL T VISIT SERV 25 FOUNDATIO MINUTES HOME [facility] HEALTH, 2 2 DIST OTHER HEALTH DEPT [facility] EMERGENCY 71151 [facility], 2 2 TRAVEL DIRECTOR [facility] ANDREY T VISIT CO HOS HIGH/URGE NT SEVERITY CRITICAL [facility], ACCESS 2 2 [facility] HOS HOME [facility] HEALTH, 2 2 [facility] T AGENCY HOME [facility] HEALTH, 2 2 DIST OTHER HEALTH DEPT [facility] H[facility]PITAL [facility], - 2 2 TRAVEL DIRECTOR OUTPATIEN ANDREY T CO HOS EMERGENCY 96584 ANDREY JAVIER 2 2 CO [facility] T VISIT MODERATE SEVERITY EMERGENCY 31949 [facility], DEPT 2 2 TRAVEL DIRECTOR VISIT ANDREY HIGH CO HOS SEVERITY& THREAT FUNCJ HOME [facility] HEALTH, 2 2 DIST OTHER HEALTH DEPT [facility]PITAL [facility], - 2 2 TRAVEL DIRECTOR OUTPATIEN ANDREY T CO HOS OFFICE 01771 [facility] OUTPATIEN 2 2 [place] FAMILY CAROL T VISIT MEDICINE 25 P MINUTES OFFICE 42978 LAUSE FED LAUSE FED OUTPATIEN 2 2 T NEW 20 MINUTES HOME [facility] HEALTH, 2 2 DIST OTHER HEALTH DEPT [facility] HOME [facility], 2 2 DIST OTHER HEALTH DEPT [facility]PITAL [facility], - 2 2 TRAVEL DIRECTOR INPATIENT ADNREY CO [facility], - 2 2 TRAVEL DIRECTOR OUTPATIEN ANDREY T CO HOS EMERGENCY 96136 ANDREY HERRERA 2 2 CO [facility] T VISIT MODERATE SEVERITY EMERGENCY 33000 [facility], 2 2 TRAVEL DIRECTOR [facility] ANDREY T VISIT CO HOS HIGH/URGE NT SEVERITY OFFICE 16782 [place] LESLEYEAN OUTPATIEN 2 2 MEDICAL XOHCITL T NEW 60 SERV MINUTES [facility] UNIVERSIT - [address] [facility] UNIVERSIT - 2 2 Y [facility] T OFFICE 66411 [facility] 2 2 [place] FAMILY T VISIT MEDICINE 15 P MINUTES [facility] UNIVERSIT - 2 2 Y [facility] T OFFICE 26414 [facility] 2 2 NURSE ELVAE T NEW 45 PRACTITIO MINUTES [facility], - 1 1 TRAVEL DIRECTOR INPATIENT ANDREY CO [facility] ANDREY - 1 1 [facility] T OFFICE 49311 [place] HER[place]ERT KRI [facility] 1 1 MEDICAL T VISIT SERV [facility] - 1 1 Y INPATIENT [facility] ANDREY - 0 0 [facility] - 0 0 Y [facility] T OFFICE 30478 [facility] 0 0 [place] [facility] CAR[facility] T VISIT MEDICINE 15 P MINUTES HOSPITAL UNIVERSIT - 0 0 Y [facility] T OFFICE 58689 [facility] OUTPATIEN 0 0 MARGARITA T VISIT 15 MINUTES OFFICE 39344 [facility] OUTPATI[facility] 0 0 MARGARITA T VISIT 15 MINUTES OFFICE 41049 [facility] OUTPATI[facility] 0 0 MARGARITA T VISIT 15 MINUTES [facility] UN[facility]ERS[facility] - 0 0 Y [facility] T
--- OUTSIDE RECORDS SUMMARY | 2017-09-02 14:55 | External Medical Summary Rpt | CCD ---
Author Author , JACQUELYN Organization JACQUELYN Address Unknown Phone Care Team Providers Care Clinical Investigator Name Role Phone [employer] Unavailable Unavailable INC, [employer] Unavailable Unavailable INC, [employer] ALLRAN JR SAMIRA, ALLRAN Unavailable Unavailable JR SAMIRA ALLRAN JR SAMIRA, ALLRAN Unavailable Unavailable JR SAMIRA JAQUEZ HOL, JAQUEZ Unavailable Unavailable HOL BERNERT EJ, BERNERT Unavailable Unavailable EJ BESSON TIMOTHY, BESSON Unavailable Unavailable TIMOTHY MCKEON, MCKEON Unavailable Unavailable MCKEON ALL, MCKEON ALL Unavailable Unavailable [facility] Unavailable Unavailable [facility], [facility] TAI KRIS, TAI Unavailable Unavailable KRIS [...] [facility] Unavailable Unavailable [facility], [facility] ARIANE JR, ARIANE Unavailable Unavailable JR COOK LILIBETH, COOK LILIBETH Unavailable Unavailable KENNY ANTWAN, Unavailable Unavailable KENNY ANTWAN [facility] Unavailable Unavailable [facility], [facility] Unavailable Unavailable [facility], [facility] DISANTIS JEWELS, Unavailable Unavailable DISANTIS [...] Unavailable SONY PRICE, Unavailable Unavailable SONY PRICE [facility] Unavailable Unavailable CARE, [facility] CARE [facility] Unavailable Unavailable CARE, [facility] Unavailable Unavailable INC, [facility] Unavailable [facility]available HOSPITAL P, [facility] HOSPITAL P WALKER RADHA, WALKER RADHA Unavailable Unavailable [facility], Unavailable Unavailable [facility] DAVEY GWE, DAVEY Unavailable Unavailable GWE HOUSMAN KAMILA, HOUSMAN Unavailable Unavailable KAMILA [facility] Unavailable Unavailable CORPORATION, [facility] Unavailable Unavailable CORPORATION, [facility] [employer] Unavailable Unavailable CORPORATION, [facility] Unavailable Unavailable GROUP PS, [facility] PS [facility] Unavailable Unavailable IMAGING [facility], [facility] KERN CAR, KERN CAR [...] PEDRO MAJORS G, MAJORS G Unavailable Unavailable [facility] Unavailable Unavailable SERVICES, [facility] Unavailable Unavailable ASSOCIAT, [facility] MCKEMIE JR KAMILA, Unavailable Unavailable MCKEMIE JR KAMILA REWEY CAROL, Unavailable Unavailable REWE[facility] CAROL [facility] Unavailable Unavailable [facility], [facility] AVILES KAMILA, AVILES KAMILA Unavailable Unavailable RONY LEVY, RONY Unavailable Unavailable [facility], Unavailable Unavailable [facility] Unavailable Unavailable AMBULANCE SE, [facility] Unavailable Unavailable AMBULANCE SE, [facility] CRISTIAN CORNEJO MD Unavailable [...] EQUIPME SOTINGEANU CAROL, Unavailable Unavailable SOTINGEANU CAROL [facility] Unavailable Unavailable EMERGENCY PHYS, [facility]GENCY PHYS [facility], Unavailable [facility]available [facility]available Unavailable CLINIC, [facility] YOO [facility]CO, YOO Unavailable Unavailable [facility] Unavailable Unavailable [facility]PITALS, [facility] Unavailable Unavailable SUPPLY, [facility] Unavailable Unavailable SUPPLY, [facility] Unavailable Unavailable MEDICINE , [facility], Unavailable Unavailable [facility] # [facility]available Unavailable [id number], [facility] # [id number] GUILLEN, GUILLEN Unavailable Unavailable GUILLEN PERRY, GUILLEN PERRY Unavailable Unavailable [facility] Unavailable Unavailable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, [facility]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 [facility] Unavailable Unavailable AGENCY, [facility] MARIO SNATA, MARIO Unavailable Unavailable [facility] Continuity of Care Document - 08-29-2010 through 2016 Problems Code Diagnosis DOS Provider Status N189 CHRONIC 08-25-2017 [facility] DISEASE [facility] UNSPECIFIED K580 IRRITABLE 07-25-2017 [facility] BOWEL HEALTH SYNDROME AGENCY WITH DIARRHEA M1990 UNSPECIFIED 07-25-2017 [facility] OSTEOARTHRI AGENCY TIS UNSPECIFIED SITE N8110 CYSTOCELE 07-25-2017 [facility] UNSPECIFIED HEALTH AGENCY R159 FULL 07-25-2017 [facility] INCONTINENC HEALTH E OF FECES AGENCY R3981 FUNCTIONAL 07-25-2017 [facility] URINARY HEALTH INCONTINENC AGENCY E I129 HYPERTENSIV 07-16-2017 [facility] CKD SERV W/STAGE 1-4 [facility] EMERGENCY DEPARTMENT CKD OR UNS CKD M329 SYSTEMIC 07-16-2017 [facility] L[facility]US [facility] ERYTHEMATOS [facility] EMERGENCY DEPART[facility] US UNSPECIFIED M810 AGE-RELATED 07-16-2017 [facility] OSTEOPOROSI [facility] EMERGENCY DEPARTMENT S W/O CURRNT PATH FX N039 CHRONIC 07-16-2017 [facility] NEPHRITIC SERV SYND W/UNS FOUNDATION MORPHOLOGIC CHANGES N183 CHRONIC 07-16-2017 [facility] DISEASE FOUNDATION STAGE 3 MODERATE N250 RENAL 07-16-2017 [facility] OSTEODYSTRO SERV PHY FOUNDATION R809 PROTEINURIA 07-16-2017 [facility] UNSPECIFIED FOUNDATION R8290 UNSPECIFIED 07-16-2017 [facility]AL [facility] FINDINGS IN INC URINE M069 RHEUMATOID 06-02-2017 [facility] ARTHRITIS Nugg-it UNSPECIFIED M3210 SYSTEMIC 06-02-2017 [facility] ERYTHEMATOS US ORGAN/SYS INVLV UNS M4000 POSTURAL 06-02-2017 [facility] KYPH[facility] Nugg-it SITE UNSPECIFIED M549 DORSALGIA 05-29-2017 [facility] R079 CHEST PAIN 05-29-2017 [facility] IM[facility]ING ASS R091 PLEURISY 05-29-2017 [facility] INC R69 ILLNESS 05-15-2017 [facility] UNSPECIFIED TRANSPORTAT ION SER I57257 UNSPECIFIED 04-30-2017 [facility] ASTIGMATISM [facility]OUNDATION BILATERAL H524 PRESBYOPIA 04-30-2017 [facility] F85531 OTHER LONG 04-30-2017 [facility]M [facility] CURRENT FOUNDATION DRUG THERAPY Z961 PRESENCE OF 04-30-2017 [facility] INTRAOCULAR [facility]OUNDATION LENS G8929 OTHER 04-29-2017 [facility] CH[facility] PAIN FOUNDATION L853 XEROSIS 04-29-2017 [facility] CUTIS SERV FOUNDATION M545 LOW BACK 04-29-2017 [facility] R52 PAIN 04-29-2017 [facility] UNSPECIFIED SERV FOUNDATION R531 WEAKNESS 04-29-2017 [facility] F[facility] E039 HYPOTHYROID 02-19-2017 [facility] ISM PHYSICIANS UNSPECIFIED LA M129 ARTHROPATHY 02-19-2017 [facility] UNSPECIFIED LA M3214 GLOMERULAR 02-19-2017 [facility] DISEASE IN PHYSICIANS SYS LUPUS LA ERYTHEMATOS US N390 URINARY 10-28-2016 [facility] TRACT [facility] INFECTION FOUNDATION SITE NOT SPECIFIED [id number] NONDSPL FX 10-16-2016 [place] 4TH [facility]ICAL METATARSAL IMAGING ASS RT FT SUBSQT FX RTN [id number] UNS 10-16-2016 [facility] F[facility]URE RT PHYSICIANS FOOT GROUP SUBSQT ENC FX ROUTINE HEAL [id number] DISPLACED 09-24-2016 [facility] 3RD TECHNOLOGIE METATARSAL S INC RT FT INIT CLOS FX [id number] NONDSPL FX 09-24-2016 [facility] 3RD [facility] METATARSAL INC RT FT INIT ENC CLOS FX [id number] DISPLACED 09-24-2016 [facility] FX 4TH TECHNOLOGIE METATARSAL S INC RT FT INIT CLOS FX [id number] NONDSPL FX 09-24-2016 [facility] 4TH [facility] METATARSAL INC RT FT INIT ENC CLOS FX [id number] NONDSPL FX 09-04-2016 [place] 3RD MEDICAL METATARSAL IMAGING ASS RT FT SUBSQT FX RTN F56280 PAIN IN 08-26-2016 [place] RIGHT FOOT MEDICAL IMAGING ASS Z1231 ENCOUNTER 08-20-2016 [place] SCREENING MEDICAL MAMMO MALIG IMAGING ASS NEOPLASM BREAST K449 DIAPHRAGMAT 07-17-2016 [facility] IC HERNIA RADIOLOGY W/O OBSTRUCTION OR GANGRENE R197 DIARRHEA 07-17-2016 [facility] UNSPECIFIED N EMERGENCY PHYS M359 SYSTEMIC 04-30-2016 [facility] INVOLVEMENT SERV CONNECTIVE FOUNDATION TISSUE UNS Z5181 ENCOUNTER 04-30-2016 [facility] FOR SERV THERAPEUTIC FOUNDATION DRUG LEVEL MONITORING B351 TINEA 04-16-2016 [facility] UNGUIUM O71872 PAIN IN 04-16-2016 [facility] LEFT FOOT H109 UNSPECIFIED 04-03-2016 [facility] CONJUNCTIVI INTERNAL TIS MEDI L930 DISCOID 02-21-2016 [facility] L[facility]US PHYSICIANS ERYTHEMATOS LA US J069 ACUTE UPPER 01-24-2016 [facility] RESPIRATORY INTERNAL INFECTION MEDI UNSPECIFIED A499 BACTERIAL 01-18-2016 [facility] INFECTION SERV UNSPECIFIED FOUNDATION K219 GASTRO-ESOP 12-20-2015 [facility] H REFLUX ANESTH OF DISEASE THE BLUE WITHOUT ESOPHAGITIS M2570 OSTEOPHYTE 12-07-2015 [facility] UNSPECIFIED JOINT R799 ABNORMAL 11-27-2015 [facility] FINDING OF [facility] BLOOD INC CHEMISTRY UNSPECIFIED R0609 OTHER FORMS 11-21-2015 [facility] OF [place] INTERNAL MED K210 GASTRO-ESOP 10-31-2015 [facility] HAGEAL SERV REFLUX FOUNDATION DISEASE W/ ESOPHAGITIS R1310 DYSPHAGIA 10-11-2015 [facility] UNSPECIFIED ANESTH OF THE BLUE E860 DEHYDRATION 10-02-2015 [facility] R112 NAUSEA WITH 10-02-2015 [facility] VOMITING PHYSICIANS, UNSPECIFIED PLLC K589 IRRITABLE 09-18-2015 [facility] SYNDROME GROUP WITHOUT DIARRHEA M8580 OTH SPEC 08-30-2015 [facility] D/O BONE PHYSICIANS DENSITY LA STRUCTURE UNS SITE Z23 ENCOUNTER 08-29-2015 [facility] FOR VALLEY IMMUNIZATIO INTERNAL N MED R109 UNSPECIFIED 08-24-2015 [place] ABDOMINAL MEDICAL PAIN IMAGING ASS R9431 ABNORMAL 08-16-2015 [facility] P N959 UNSPECIFIED 08-15-2015 [facility] INC PERIMENOPAU SYDNI DISORDER M42822 ENCOUNTER 08-15-2015 [place] FOR MEDICAL SCREENING IMAGING ASS FOR OSTEOPOROSI S Z780 ASYMPTOMATI 08-15-2015 [place] C MEDICAL MENOPAUSAL IMAGING ASS STATE Z803 FAMILY 08-15-2015 [place] HISTORY OF MEDICAL MALIGNANT IMAGING ASS NEOPLASM OF BREAST 3829 UNSPECIFIED 08-07-2015 [facility] OTITIS [facility] MEDIA INTERNAL MEDI 59352 ESOPHAGEAL 08-07-2015 [facility] REFLUX VALLEY INTERNAL MEDI 5853 CHRONIC 07-28-2015 [place] KIDNEY [facility] DISEASE INC STAGE III (MODERATE) 5990 URINARY 07-28-2015 [place] TRACT [facility] INFECTION INC SITE NOT SPECIFIED 30070 07-28-2015 [facility] ION SER 5641 IRRITABLE 07-25-2015 [facility] SYNDROME AGENCY 85202 UNS PROLAPS 07-25-2015 [facility] W/O MENTION AGENCY UTERN PROLAPS 78530 UNSPECIFIED 07-25-2015 [facility] ARTHROPATHY AGENCY SITE UNSPECIFIED 7242 LUMBAGO 07-25-2015 [facility] INTERNAL MEDI 49201 FULL 07-25-2015 [facility] INCONTINENC HEALTH E OF FECES AGENCY 34715 UNSPECIFIED 07-25-2015 [facility] URINARY HEALTH INCONTINENC AGENCY E V7610 UNSPECIFIED 07-25-2015 [facility] [place] SCREENING INTERNAL MEDI V8281 SPECIAL 07-25-2015 [facility] SCREENING VALLEY FOR INTERNAL OSTEOPOROSI MEDI S 7100 SYSTEMIC 07-11-2015 [facility]US HE[facility] DEPT 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 [address] OSTEOARTHRO 07-11-2015 [facility] S UNSPEC HEALTH DEPT 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 GEN/LOC UNSPEC SITE 2449 UNSPECIFIED 05-31-2015 [facility] HYPOTHYROID [place] ISM 87838 OTHER 04-25-2015 [facility] CHRONIC SERV PAIN FOUNDATION 75142 UNSPECIFIED 04-19-2015 [facility] P [facility] 7802 SYNCOPE AND 04-19-2015 [facility] COLLAP[place] [facility] [place] [address] NAUSEA 04-19-2015 [facility] AL[place] [facility] [place] [address] DIAB W/O 03-30-2015 [facility] COMP TYPE STATES II/UNS NOT MEDICAL STATED SUPPLY UNCNTRL 7140 RHEUMATOID 03-01-2015 [place] [address] UNSPECIFIED 02-22-2015 [facility] ARTHROPATHY INTERNAL MULTIPLE MED SITES 21152 KYPHOSIS 02-06-2015 [facility] [employer] POSTURAL 02535 HTN CKD UNS 01-09-2015 [facility] W/CKD SERV STAGE I FOUNDATION THRU STAGE IV/UNS 5829 CHRONIC GLN 01-09-2015 [facility] W/UNSPEC SERV PATHOLOGICA FOUNDATION L LESION KIDNEY 4659 ACUTE URIS 11-29-2014 [facility] OF SERV UNSPECIFIED FOUNDATION SITE 1101 DERMATOPHYT 10-12-2014 [facility] OSIS OF NAIL 7038 OTHER 10-12-2014 [facility] SPECIFIED DISEASE OF NAIL 7295 PAIN IN 10-12-2014 [facility] SOFT TISSUES OF LIMB 65718 OBSTRUCTIVE 09-16-2014 [facility] APNEA MEDICAL EQUIPME 72760 OTHER 09-16-2014 [facility] D[facility] AND HOME MEDICAL RESPIRATORY EQUIPME ABNORMALITI ES 4011 ESSENTIAL 08-15-2014 [facility] HYPERTENSIO SERV N, BENIGN FOUNDATION 7910 PROTEINURIA 08-15-2014 [facility]OUND[facility] 7919 OTHER 08-15-2014 [facility] NONSPECIFIC [facility] FINDING INC EXAMINATION OF URINE 15543 DYSPHAGIA 08-11-2014 [facility] UNSPECIFIED MEM HOSP INC 84577 AFTER-CATAR 07-28-2014 [facility] VISION 50764 NEPHRITIS&N 05-31-2014 [facility] EPHROPATHY- SERV OTH SPEC FOUNDATIO PATH LES DZ CE 7813 LACK OF 03-25-2014 [facility] COORDINATIO HOME N MEDICAL EQUIPME 23336 ANEMIA OF 01-20-2014 [facility] OTHER SERV CHRONIC FOUNDATIO DISEASE 2724 OTHER AND 12-07-2013 [facility] UNSPECIFIED VALLEY INTERNAL HYPERLIPIDE MED BRIDGETTE 3814 NONSUPPRATV 12-07-2013 [facility] OT[facility]IS [facility] MEDIA NOT INTERNAL SPEC MED ACUT/CHRON 4019 UNSPECIFIED 12-07-2013 [facility] ESSENTIAL [facility] HYPERTENSIO INTERNAL N MED 4720 CHRONIC 12-07-2013 [facility] RHINITIS VALLEY INTERNAL MED 7851 PALPITATION 10-20-2013 [facility], [place] [facility] [place] [address]40 HYPERPARATH 10-13-2013 [facility], YROIDISM LIFE SPECIALIST UNSPECIFIED [facility]RE[facility] CO HOS 2689 UNSPECIFIED 10-13-2013 [facility], VITAMIN D LIFE SPECIALIST [place] 22252 ANEMIA IN 10-13-2013 [facility], CHRONIC LIFE SPECIALIST KIDNEY [facility]RE[facility] CO DISEASE HOS 3384 CHRONIC 09-27-2013 [facility] PA[facility] SYNDROME FOUNDATIO 7226 DEGENERATIO 09-27-2013 [facility] N SERV INTERVERTEB FOUNDATIO RAL DISC SITE UNSPEC 07669 OTHER 06-30-2013 [facility], ABNORMAL LIFE SPECIALIST FINDING [facility]RE[facility] L EXAM BREAST 94395 LUMP OR 06-25-2013 [place] [facility] IN RADIOLOGY BREAST ASSOCIAT 1103 DERMATOPHYT 06-07-2013 [facility] OSIS OF [place] GROIN AND INTERNAL PERIANAL MED AREA 4555 EXTERNAL 05-05-2013 [facility] HEMORRHOIDS SAMIRA WITH OTHER COMPLICATIO N 2722 MIXED 05-04-2013 CRISTIAN CORNEJO HYPERLIPIDE BRIDGETTE CONSULTING SERV 74935 CORONARY 05-04-2013 CRISTIAN HAYNES MD OSIS [place] CONSULTING CORONARY SERV ARTERY V7281 PRE-OPERATI 05-04-2013 CRISTIAN BARAJAS MD CARDIOVASCU CONSULTING LAR SERV EXAMINATION 05680 DYSFNCT 04-23-2013 [facility] W/SLEEP HOSPITAL STGES/AROUS AL FRM SLEEP 74942 HYPOXEMIA 04-23-2013 [facility] V8533 BODY MASS 04-23-2013 [facility] [id number] HOSPITAL ADULT 5859 CHRONIC 04-19-2013 [facility], KIDNEY LIFE SPECIALIST DISEASE [facility]RE[facility] [place] UNSPECIFIED HOS 30643 UNSPECIFIED 04-16-2013 [facility] OSTEOPOROSI S 44248 CHEST PAIN 04-16-2013 [facility] UNSPECIFIED CARDIOLOGY CLINIC 4160 PRIMARY 04-14-2013 [facility] HYPERTENSIO HOSPITAL N 61932 PRECORDIAL 04-14-2013 [facility] 50973 OTHER 04-14-2013 [facility] [place] NONSPECIFIC RADIOLOGY ABNORMAL FINDING OF LUNG FIELD 13404 SHORTNESS 03-24-2013 [facility] 7823 EDEMA 03-09-2013 CRISTIAN [place] [address] OTHER CHEST 03-01-2013 [facility] PAIN [place] INTERNAL MED 28463 OBESITY, 02-27-2013 [place] UNSPECIFIED EMERGENCY SERVICES 65705 [facility]2013 [facility] DZ STAGE I-IV/UNS 4556 UNSPEC 02-26-2013 [place] [facility] ANESTHESIA WITHOUT GROUP PS MENTION COMPLICATIO N 4558 UNSPECIFIED 02-26-2013 [facility] WITH OTHER COMPLICATIO N V641 SURG/OTH 02-26-2013 [facility] NOT [facility] BECAUSE CONTRAINDIC ATION 4550 INTERNAL 02-10-2013 [facility]TOY[facility] JR HEMORRHOIDS SAMIRA WITHOUT MENTION COMP 485 BRONCHOPNEU 01-19-2013 [facility] [place] ORGANISM INTERNAL UNSPECIFIED MED 35889 OTHER 01-19-2013 [facility] [place] FATIGUE INTERNAL MED 4293 CARDIOMEGAL 01-18-2013 [facility]OLOG[facility]OC[facility]AT 68444 OTHER 01-18-2013 [facility] DISEASES OF RADIOLOGY LUNG NOT ASSOCIAT ELSEWHERE CLASSIFIED 6100 SOLITARY 01-13-2013 [facility], CYST OF LIFE SPECIALIST [place] 43569 UNSPECIFIED 01-06-2013 [facility], ABNORMAL LIFE SPECIALIST [place]AMMO[place] 96102 DYSPHAGIA 12-09-2012 [facility], DUE TO LIFE SPECIALIST CEREBROVASC [facility] CO ULAR HOS DISEASE 5533 DIAPHRAGMAT 12-09-2012 [facility], EDUARD W/O LIFE SPECIALIST MENTION [facility] CO OBSTRUCTION HOS /GANGREN 82278 OTHER 12-08-2012 [facility] SPECIFIED RADIOLOGY DISORDERS ASSOCIAT OF BREAST V1589 OTH SPEC 12-08-2012 [facility], PERS HX LIFE SPECIALIST PRESENTING ANDRE[facility] CO HAZARDS HOS HEALTH OTH V163 FAMILY 12-08-2012 [facility], HISTORY OF LIFE SPECIALIST MALIGNANT [facility] CO NEOPLASM OF HOS BREAST V7611 SCREENING 12-08-2012 [facility], MAMMOGRAM LIFE SPECIALIST FOR [facility]RE[facility] CO HIGH-RISK HOS PATIENT V7612 OTHER 12-08-2012 [facility] SCREENING RADIOLOGY MAMMOGRAM ASSOCIAT 7213 LUMBOSACRAL 12-01-2012 [facility] SPONDYLOSIS WITHOUT MYELOPATHY 86207 DISPLCMT 12-01-2012 [facility] LUMBAR SERV INTERVERT FOUNDATIO DISC W/O MYELOPATHY 62970 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 [facility] OSACRAL INTERVERTEB RAL DISC 65161 OTHER&UNSPE 12-01-2012 [facility] DISORDER OF LUMBAR REGION 22612 DIVERTICULO 11-17-2012 [facility] SIS OF MEM HOS[facility] COLON INC 71623 OTHER 11-17-2012 [facility] SYMPTOMS ANESTH OF INVOLVING THE BLUE DIGESTIVE SYSTEM OTHER V160 FM HX 11-17-2012 [facility] MALIGNANT [facility]OS[facility] NEOPLASM INC GASTROINTES TINAL TRACT V7651 SPECIAL 11-17-2012 [facility] SCREENING MEM HOS[facility] FOR INC MALIGNANT NEOPLASMS COLON 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 [facility] THESIS 86713 NEPHROTIC 11-05-2012 [facility] SYND W/OTH SERV PATHAL LES FOUNDATIO DZ CLASS ELSW 63283 MUSCLE 11-05-2012 [facility] WEAKNESS SERV (GENERALIZE FOUNDATIO D) 4553 EXTERNAL 10-19-2012 [facility] HEMORRHOIDS SAMIRA WITHOUT MENTION COMP 7856 ENLARGEMENT 10-05-2012[place] [facility] RADIOLOGY NODES ASSOCIAT 7866 SWELLING, 10-05-2012 [facility], MASS, OR LIFE SPECIALIST LUMP IN [facility] CHEST HOS V4576 ACQUIRED 10-05-2012 [facility], ABSENCE OF LIFE SPECIALIST ORGAN, LUNG [facility] HOS V4589 OTHER 09-25-2012 [facility], POSTSURGICA LIFE SPECIALIST L STATUS [facility] OTHER HOS V571 OTHER 09-24-2012 [facility], PHYSICAL LIFE SPECIALIST THERAPY [facility] HOS 4421 ANEURYSM OF 09-21-2012 [facility] ARTERY 74839 OSTEOARTHRO 09-03-2012 [facility] S UNSPEC SERV WHETHER FOUNDATIO GEN/LOC SHLDR REGION 59654 OSTEOARTHRO 09-03-2012 [facility] SIS UNSPEC SERV WHETHER FOUNDATIO GEN/LOC LOWER LEG 46193 EFFUSION OF 09-03-2012 [facility] LOWER LEG SERV JOINT FOUNDATIO 69282 PAIN IN 09-03-2012 [facility] JOINT, SERV SHOULDER FOUNDATIO REGION 93334 PAIN IN 09-03-2012 [facility] JOINT, SERV LOWER LEG FOUNDATIO 7249 OTHER 09-03-2012 [facility] UNSPECIFIED SERV BACK FOUNDATIO DISORDER 32475 EXOSTOSIS 09-03-2012 [facility] OF SERV UNSPECIFIED FOUNDATIO SITE 7384 ACQUIRED 09-03-2012 [facility] SPONDYLOLIS SERV THESIS FOUNDATIO 02912 DEHYDRATION 08-04-2012 [facility], [facility] HOS 5589 OTH&UNSPEC 08-04-2012 [facility], NONINFECTIO LIFE SPECIALIST US [facility] GASTROENTER HOS ITIS&COLITI S 87985 VOMITING 08-04-2012 [facility], ALONE LIFE SPECIALIST [facility] HOS 4580 ORTHOSTATIC 06-19-2012 [facility] HOSPITAL HYPOTENSION 5849 ACUTE 06-19-2012 [facility] K[facility]NEY [facility]OSPITAL FAILURE UNSPECIFIED 2720 PURE 06-05-2012 [facility], HYPERCHOLES LIFE SPECIALIST TEROLEMIA [facility] HOS 586 UNSPECIFIED 04-14-2012 CRISTIAN CORNEJO RENAL [place] [address]5555 OTH & UNS E 04-08-2012 [facility], COLI LIFE SPECIALIST INFECTION [facility] CLASS ELSW HOS UNS SITE 2762 ACIDOSIS 04-08-2012 [facility], LIFE SPECIALIST [facility] HOS 2767 HYPERPOTASS 04-08-2012 [facility], EMIA LIFE SPECIALIST [facility] HOS 4589 UNSPECIFIED 04-07-2012 [facility] HOSPITAL HYPOTENSION 7862 COUGH 04-07-2012 [facility] 60656 ANEURYSM OF 03-23-2012 [facility] OTHER SERV VISCERAL FOUNDATIO ARTERY 91907 UNSPECIFIED 02-13-2012 [facility] OTALGIA FAMILY MEDICINE P 6256 FEMALE 02-12-2012 S [place] E [address] URGE 02-12-2012 [facility] [place] [address] URINARY 02-12-2012 [facility] [place] [address] URGENCY OF 02-12-2012 [facility] N[place]SE URINATION PRACTITIONE R GR 7336 TIETZES 07-10-2011 [facility] DISEASE LIFE SPECIAL[facility] HOS 28619 UNSPECIFIED 01-03-2011 [facility] PYELONEPHRI TIS 6826 CELLULITIS 01-03-2011 [facility] FAM[facility] OF LEG MEDICINE P EXCEPT FOOT 6954 LUPUS 01-03-2011 [facility] US [facility] 52685 SWELLING OF 01-03-2011 [facility] 7931 NONSPEC 01-03-2011 [facility] OTH EXAM [facility] BODY STRUCT LUNG FIELD 29771 CRAMP OF 11-06-2010 [facility] 48048 DIARRHEA 11-06-2010 [facility] HOSPITAL V5865 LONG-TERM 11-06-2010 [facility] USE OF HOSPITAL STEROIDS V5869 LONG-TERM 11-06-2010 [facility] (CURRENT) HOSPITAL USE OF OTHER MEDICATIONS V5883 ENCOUNTER 11-06-2010 [facility] FOR HOSPITAL THERAPEUTIC DRUG MONITORING 45153 NAUSEA WITH 10-02-2010 [facility]OSPITAL V7260 LABORATORY 10-02-2010 [place] [facility] UNSPECIFIED 4619 ACUTE 09-27-2010 [facility] SINUSITIS, FAMILY UNSPECIFIED MEDICINE P 39403 NUCLEAR 09-05-2010 [facility]ER[facility] 3669 UNSPECIFIED 09-04-2010 [facility] 7850 UNSPECIFIED 08-29-2010 [facility] TACHYCARDIA Medications Na ND Rx Da [...] AT 60 15 15 FA E 1 TX SA 20 LY RA 0 H MG [...] /PAD/UNDG AGENCY AGENCY RMNT INCONT EA COLLECTIO 92653 [facility] N VENOUS 7 [facility]LOOD [facility] INC VENIPUNCT URE CULTURE 23405 [facility] BACTERIAL 7 [facility] INC INC QUANTTATI VE COLONY COUNT URINE CREATININ 28142 [facility] E OTHER 7 [facility] SOURCE INC INC RENAL 98092 [facility] FUNCTION 7 [facility] PANEL INC INC URNLS DIP 30343 [facility] STICK/TAB INC INC LET REAGENT AUTO MICROSCOP Y PROTEIN 34962 [facility] XCPT 7 [facility] REFRACTOM INC INC ETRY SERUM PLASMA/WH L BLD BLOOD 36799 [facility] COUNT 7 [facility] COMPLETE INC INC AUTO&AUTO DIFRNTL WBC PWR WC E2381 [facility] HOVEROUND PNEUMATIC 7 DRIVE CORPORATI CORPORATI WHEEL ON ON TIRE REPL ONLY EACH PWR WC E2382 [facility] HOVEROUND TUBE [address]IVE ON ON WHEEL TIRE REPL EACH RADIOLOGI 06448 MINNESOTA MCKEON C EXAM 7 MEDICAL CHEST 2 [...] TRANSPORT SERVBLUEG ATION: ATION SER NATA STROUDI 66343 [place] ZED 7 MEDICAL JR OPHTHALMI SERV C IMAGING FOUNDATIO RETINA N VISUAL 90657 [place] FIELD XM 7 MEDICAL JR UNI/BI SERV W/INTERP FOUNDATIO EXTENDED N EXAM NONEMERGE A0130 FEDERATED FEDERATED NCY 7 TRANS TRANSPORT TRANSPORT SERVBLUEG ATION: ATION SER NATA Carrasquillo VAN DISPBL T4535 [facility]/KATHIE 7 HOME HOME ELD/GUARD HEALTH HEALTH /PAD/UNDG AGENCY AGENCY RMNT INCONT EA BLOOD 84575 COMBINED COMBINED COUNT 7 PHYSICIAN PHYSICIAN COMPLETE S LA S LA AUTO&[place] [address] COMBINED COMBINED TRIIODOTH 7 PHYSICIAN PHYSICIAN YRONINE S LA S LA T3 [place] [address] COMBINED COMBINED THYROID 7 PHYSICIAN PHYSICIAN STIMULATI [place] [address] COMBINED COMBINED FREE 7 PHYSICIAN PHYSICIAN THYROXINE S LA S LA COMPREHEN 75087 COMBINED COMBINED SIVE 7 PHYSICIAN PHYSICIAN METABOLIC S LA S LA PANEL LIPID 46212 COMBINED COMBINED PANEL 7 PHYSICIAN PHYSICIAN S LA S LA PWR WC E2366 HOVEROUND HOVEROUND ACSS 7 [facility] CORPORATI CORPORATI CHRGR 1 ON ON MODE W/ONLY 1 [facility] PROTEIN 14739 [place] [facility] TOTAL 7 HEALTHCAR HEALTHCAR XCPT E E REFRACTOM [facility] ETRY URINE URNLS DIP 82333 [place] 7 HEALTHCAR HEALTHCAR STICK/TAB E E LET [facility] REAGENT AUTO MICROSCOP Y NONEMERGE A0130 FEDERATED FEDERATED NCY 7 TRANS TRANSPORT TRANSPORT SERVBLUEG ATION: ATION SER NATA WHEELCHAI R VAN CREATININ 27048 [place] [facility] E OTHER 7 HEALTHCAR HEALTHCAR SOURCE E E [facility] COLLECTIO 69807 [place] N VENOUS 7 HEALTHCAR HEALTHCAR BLOOD E E VENIPUNCT [facility] URE SEDIMENTA 26335 [place] [facility] TION RATE 7 HEALTHCAR HEALTHCAR RBC E E AUTOMATED [facility] FLUORESCE 08507 [place] NT 7 HEALTHCAR HEALTHCAR NONNFCT E E AGT ANTB [facility] SCREEN EA ANTIBODY DXA BONE 91854 [place] GUILLEN DENSITY 7 MEDICAL STUDY 1/> SERV SITES FOUNDATIO AXIAL N SKEL C-REACTIV 90378 [place] E PROTEIN 7 HEALTHCAR HEALTHCAR E E [facility] COMPREHEN 22079 [place] [facility] SIVE 7 HEALTHCAR HEALTHCAR METABOLIC E E PANEL [facility] COMPLEMEN 32899 [place] T ANTIGEN 7 HEALTHCAR HEALTHCAR EACH E E COMPONENT [facility] BLOOD 15931 [place] COUNT 7 HEALTHCAR HEALTHCAR COMPLETE E E AUTO&AUTO [facility] DIFRNTL WBC DISPBL T4535 [facility]/KATHIE 7 HOME HOME ELD/GUARD HEALTH HEALTH /PAD/UNDG AGENCY AGENCY RMNT INCONT EA NONEMERGE A0130 FEDERATED FEDERATED NCY 6 TRANS TRANSPORT TRANSPORT SERVBLUEG ATION: ATION SER NATA GERALDOGarrett Foreign NAOMIE REYS DIP 61599 [facility]Y 6 [facility] STICK/TAB INC INC LET REAGENT AUTO MICROSCOP Y PROTEIN 13647 KRISSY KRISSY XCPT 6 [facility] REFRACTOM INC INC ETRY SERUM PLASMA/WH L BLD CULTURE 20287 KRISSYELVI REY BCT 6 [facility] ISOL&PRSM INC INC PTV ID ISOLATE EA URINE RENAL 97695 KRISSYELVI REY FUNCTION 6 [facility] PANEL INC INC RADEX 41553 [place] FOOT 6 MEDICAL COMPLETE IMAGING MINIMUM 3 ASS VIEWS CULTURE 36170 KRISSY REY BACTERIAL 6 [facility] INC INC QUANTTATI VE COLONY COUNT URINE COLLECTIO 48697 KRISSY REY N VENOUS 6 [facility] BLOOD INC INC VENIPUNCT URE SUSCEPTIB 88963 KRISSY REY LTY STDY 6 [facility] ANTIMICRB INC INC IAL MICRO/AGA R DILUTJ CREATININ 62639 KRISSY REY E OTHER 6 [facility] SOURCE INC INC BLOOD 68925 KRISSY CASTROON COUNT 6 [facility] COMPLETE INC INC AUTO&AUTO DIFRNTL WBC WALKING L4360 [facility] BOOT 6 TECHNOLOG TECHNOLOG PNEUMATC IES INC IES INC &/ VACUUM PREFAB CUSTM FIT ORTHOTIC 12417 KRISSY REY MGMT&NICK 6 [facility] [place] UXTR INC INC LXTR&/TRN K EA 15 RADEX 07708 [place] ALL FOOT 6 MEDICAL COMPLETE IMAGING MINIMUM 3 ASS VIEWS WALKER E0135 [facility] R[place] FOLDING 6 HOME HOME ADJUSTABL MEDICAL MEDICAL E OR EQUIPME EQUIPME FIXED HEIGHT CAST Q4038 [facility] MAD SUPPLIES 6 PHYSICIAN SHORT LEG S GROUP CAST ADULT FIBERGLAS S RADEX 53967 [place] ALL FOOT 6 MEDICAL COMPLETE IMAGING MINIMUM 3 ASS VIEWS COMPUTER- 99852 [place] KEN[place] AIDED 6 MEDICAL ANTWAN DETECTION IMAGING ASS SCREENING MAMMOGRAP HY NONEMERG A0120 FEDERATED FEDERATED TRNSPRT: 6 MINI-BUS TRANSPORT TRANSPORT MTN ATION SER ATION SER AREA/OTH SYS SCREENING G0202 [place] KENNY 6 MEDICAL ANTWAN MAMMOGRAP IMAGING HY MARIA DEL ROSARIO ASS INCL CAD WHEN PERFORMD BLOOD 81490 [facility] COUNT 6 Y Y COMPLETE [facility] AUTOMATED COMPLEMEN 71252 [facility] T ANTIGEN 6 Y Y EACH [facility] COMPONENT C-REACTIV 02843 [facility] E PROTEIN 6 Y Y [facility] CREATININ 71933 [facility] E OTHER 6 Y Y SOURCE [facility] COLLECTIO 25810 [facility] N VENOUS 6 Y Y BLOOD [facility] VENIPUNCT URE FLUORESCE 18049 [facility] NT 6 Y Y NONNFCT [facility] AGT ANTB SCREEN EA ANTIBODY SEDIMENTA 89753 [facility] TION RATE 6 Y Y RBC [facility] AUTOMATED URNLS DIP 81887 [facility] 6 Y Y STICK/TAB [facility] [place] [address] [facility] BLOOD/URI 6 Y Y C ACID [facility] NONEMERGE A0130 FEDERATED FEDERATED NCY 6 TRANS TRANSPORT TRANSPORT SERVBLUEG ATION: ATION SER NATA WHEELSAMIRAI R VAN RENAL 09100 [facility] FUNCTION 6 Y Y PANEL [facility] PROTEIN 28706 [facility] TOTAL 6 Y Y XCPT [facility] REFRACTOM ETRY URINE HEPATIC 93169 [facility] FUNCTION 6 Y Y PANEL [facility] CALCIUM 77096 [facility] IONIZED 6 Y Y HOSPITAL HOSPITAL 25 25339 [facility] HYDROXY 6 Y Y INCLUDES HOSPITAL HOSPITAL FRACTIONS IF PERFORMED CREATINE 66968 [facility] KINASE 6 Y [place] [address] [facility] PARATHORM 6 Y Y ONE HOSPITAL HOSPITAL INCONTINE T4541 [facility] NCE 6 HOME HOME PRODUCT HEALTH HEALTH DISPOSABL AGENCY AGENCY E UNDPAD LARGE EA ADLT SZD T4526 [facility] DISPBL 6 HOME HOME INCONT HEALTH HEALTH [place] [address] [facility] TANESHA ABDOMEN & 6 RADIOLOGY RHO PELVIS W/O CONTRAST MATERIAL NONEMERGE A0130 FEDERATED FEDERATED NCY 6 TRANS TRANSPORT TRANSPORT SERVBLUEG ATION: ATION SER NATA SANDRA Carrasquillo VAN DISPBL T4535 [facility]ATH[facility] 6 HOME HOME ELD/GUARD HEALTH HEALTH /PAD/UNDG AGENCY AGENCY RMNT INCONT EA BLOOD 95057 [facility] COUNT 6 Y Y COMPLETE HOSPITAL HOSPITAL AUTO&AUTO DIFRNTL WBC NONEMERGE A0130 FEDERATED FEDERATED NCY 6 TRANSPORT TRANSPORT TRANSPORT ATION: ATION SER ATION SER SANDRA AKBAR URNLS DIP 74541 [facility] 6 Y Y STICK/TAB HOSPITAL HOSPITAL LET REAGENT AUTO MICROSCOP Y PROTEIN 55283 [facility] TOTAL 6 Y Y XCPT [facility] REFRACTOM ETRY URINE C-REACTIV 05957 [facility] E PROTEIN Y Y HOSPITAL HOSPITAL COMPREHEN 41260 [facility] SIVE 6 Y Y METABOLIC [facility] PANEL COMPLEMEN 64307 [facility] T ANTIGEN 6 Y Y EACH HOSPITAL HOSPITAL COMPONENT SEDIMENTA 43894 [facility] TION RATE 6 Y Y RBC HOSPITAL [facility] AUTOMATED FLUORESCE 42443 [facility] NT 6 Y Y NONNFCT HOSPITAL [facility] AGT ANTB SCREEN EA ANTIBODY COLLECTIO 05533 [facility] N VENOUS 6 Y Y BLOOD [facility] VENIPUNCT URE CREATININ 99290 [facility] E OTHER 6 Y Y SOURCE HOSPITAL [facility]PITAL DEBRIDEME 22574 [facility] TAI NT NAIL 6 YONY KRIS ANY METHOD 6/> NONEMERGE A0130 FEDERATED FEDERATED NCY 6 TRANSPORT TRANSPORT TRANSPORT ATION: ATION SER ATION SER SANDRA Foreign AKBAR NONEMERGE A0130 FEDERATED FEDERATED NCY 6 TRANSPORT TRANSPORT TRANSPORT ATION: ATION SER ATION SER SANDRA Foreign TROYS DIP 06033 [facility] REY 6 [facility] STICK/TAB INC INC LET REAGENT AUTO MICROSCOP Y DISPBL T4535 [facility]KATHIE 6 HOME HOME ELD/GUARD HEALTH HEALTH /PAD/UNDG AGENCY AGENCY RMNT INCONT EA BLOOD 91224 COMBINED COMBINED COUNT 6 PHYSICIAN PHYSICIAN COMPLETE S LA S LA AUTO&[place] [address] COMBINED COMBINED THYROID 6 PHYSICIAN PHYSICIAN STIMULATI S LA S LA NG HORMONE TSH COMPREHEN 36994 COMBINED COMBINED SIVE 6 PHYSICIAN PHYSICIAN METABOLIC S LA S LA PANEL NONEMERGE A0130 FEDERATED FEDERATED NCY 6 TRANSPORT TRANSPORT TRANSPORT ATION: ATION SER ATION SER SANDRA Foreign AKBAR DEBRIDEME 67666 [facility] TAI NT NAIL 6 YONY KRIS [...] ATION SER ATION SER GERALDOGarrett DAVIS DIP 97427 [facility] REY 6 [facility] STICK/TAB INC INC LET REAGENT AUTO MICROSCOP Y PROTEIN 01546 KRISSY REY XCPT 6 [facility] REFRACTOM INC INC ETRY SERUM PLASMA/WH L BLD CREATININ 25513 KRISSY REY E OTHER 6 [facility] SOURCE INC INC RENAL 11530 KRISSY REY FUNCTION 6 [facility] PANEL INC INC CULTURE 33943 KR[facility]SY REY BCT 6 [facility] ISOL&PRSM INC INC PTV ID ISOLATE EA URINE CULTURE 17387 KRISSY REY BACTERIAL 6 [facility] INC INC QUANTTATI VE COLONY COUNT URINE SUSCEPTIB 20024 KRISSY REY LTY STDY 6 [facility] ANTIMICRB INC INC IAL MICRO/AGA R DILUTJ COLLECTIO 98386 KRISSY REY N VENOUS 6 [facility] BLOOD INC INC VENIPUNCT URE BLOOD 63458 KRISSY REY COUNT 6 [facility] COMPLETE INC INC AUTO&AUTO DIFRNTL WBC ANES 52432 [facility] UPPER GI 6 ANESTH REE ENDOSCOPY OF THE PROXIMAL BLUE TO DUODENUM DEBRIDEME 96439 FALLIS TAI NT NAIL 6 YONY KRIS [...] ATION SER ATION SER AREA/OTH SYS COLLECTIO 30936 KRISSY REY N VENOUS 6 [facility] BLOOD INC INC VENIPUNCT URE BLOOD 58295 KRISSY REY COUNT 6 [facility] COMPLETE INC INC AUTO&AUTO DIFRNTL WBC BASIC 66235 KRISSY REY METABOLIC 6 [facility] [place] [address] COMBINED COMBINED THYROID 6 PHYSICIAN PHYSICIAN STIMULATI S LA S LA NG HORMONE TSH COMPREHEN 16219 COMBINED COMBINED SIVE 6 PHYSICIAN PHYSICIAN METABOLIC S LA S LA PANEL SEDIMENTA 25048 COMBINED COMBINED TION RATE 6 PHYSICIAN PHYSICIAN RBC S LA S LA NON-AUTOM ATED BLOOD 56083 COMBINED COMBINED COUNT 6 PHYSICIAN PHYSICIAN COMPLETE [...] FEDERATED NCY 5 TRANSPORT TRANSPORT TRANSPORT ATION: ATFORMERLY [facility] SER ATFORMERLY [facility] SER SANDR[facility] 63503 [facility] SURYA 5 Y Y [facility] COLUMN 1 ANALYTE KARLENE COLLECTIO 74563 [facility] N VENOUS 5 Y Y [facility] VENIPUNCT URE NONEMERG A0120 FEDERATED FEDERATED TRNSPRT: 5 MINI-BUS TRANSPORT TRANSPORT MTN ATFORMERLY [facility] SER ATFORMERLY [facility] SER AREA/OTH SYS ANES 89347 [facility] UPPER GI 5 ANESTH ENDOSCOPY OF THE [place] [address] KRISSY REY LIPASE 5 [place] [address] KRISSY REY INFUSION 5 [facility] THERAPY INC INC PROPHYLAX IS/DX EA HOUR THER 83718 KRISSY REY PROPH/DX 5 [facility] NJX EA INC INC SEQL IV PUSH SBST/DRUG FAC INJECTION J2405 [facility] REY 5 [facility] ONDANSETR INC INC ON HCL PER 1 [place] [address] KRISSY REY AMYLASE 5 [facility] INC INC COMPREHEN 26076 KRISSY REY SIVE 5 [facility] METABOLIC INC INC PANEL BLOOD 03262 KIRSSY REY COUNT 5 [facility] COMPLETE INC INC AUTO&[place] [address] KRISSY REY INFUSION 5 [facility] THERAPY/P INC INC ROPHYLAXI S /DX 1ST TO 1 HR THERAPEUT 80619 KRISSY REY IC 5 [facility] INJECTION INC INC IV PUSH EACH NEW DRUG DISPBL T4535 [facility]ATH[facility] 5 HOME HOME ELD/GUARD HEALTH HEALTH /PAD/UNDG AGENCY AGENCY RMNT INCONT EA ADLT SZD T4526 [facility] DISPBL 5 HOME HOME INCONT HEALTH HEALTH PROD AGENCY AGENCY UNDWEAR MED EA BLOOD 66396 COMBINED COMBINED COUNT 5 PHYSICIAN PHYSICIAN COMPLETE S LA S LA AUTO&AUTO DIFRNTL WBC COMPREHEN 77802 COMBINED COMBINED SIVE 5 PHYSICIAN PHYSICIAN [place] [address] COMBINED COMBINED THYROID 5 PHYSICIAN PHYSICIAN STIMULATI S LA S LA NG HORMONE TSH INFLUENZA Q2038 [facility] V[facility] 5 [facility] TIMOTHY SPLIT INTERNAL VIRUS 3 MED YRS & > IM FLUZONE ADMINISTR G0008 [facility] ATION OF 5 VALLEY TIMOTHY INFLUENZA [place] V[place] [address] [place] ALL TRACT UPR 5 MEDICAL W/SM INT IMAGING W/MULT ASS SERIAL IMAGES RADEX 68862 KRISSY REY ESOPHAGUS 5 [facility] INC INC NONEMERGE A0130 FEDERATED FEDERATED NCY 5 TRANSPORT TRANSPORT TRANSPORT ATION: ATION SER ATION SER SANDRA AKBAR NONEMERGE A0130 FEDERATED FEDERATED NCY 5 TRANSPORT TRANSPORT TRANSPORT ATION: ATION SER ATION SER SANDRA R VAN ECG 74445 KRISSY GASTON JR ROUTINE 5 [facility] W/LEAST P 12 LDS I&R ONLY ECG 91798 KRISSY REY ROUTINE 5 [facility] ECG INC INC W/LEAST 12 LDS TRCG ONLY W/O I&R COMPUTER- 20481 KRISSY REY AIDED 5 [facility] DETECTION INC INC SCREENING MAMMOGRAP HY COMPREHEN 61191 KRISSY REY SIVE 5 [facility] METABOLIC INC INC PANEL DXA BONE 38546 KRISSY KRISSY DENSITY 5 [facility] STUDY 1/> INC INC SITES AXIAL SKEL RENAL 31192 KRISSY REY FUNCTION 5 [facility] PANEL INC INC COLLECTIO 10662 KRISSY REY N VENOUS 5 [facility] BLOOD INC INC VENIPUNCT URE NONEMERGE A0130 FEDERATED FEDERATED NCY 5 TRANSPORT TRANSPORT TRANSPORT ATION: ATION SER ATION SER SANDRA R VAN URNLS DIP 51195 [facility] REY 5 [facility] STICK/TAB INC INC LET REAGENT AUTO MICROSCOP Y BLOOD 28294 KRISSY REY COUNT 5 [facility] COMPLETE INC INC AUTO&AUTO DIFRNTL WBC SCREENING G0202 KR[facility]SY REY 5 [facility] MAMMOGRAP INC INC HY MARIA DEL ROSARIO INCL CAD WHEN PERFORMD NONEMERGE A0130 FEDERATED FEDERATED NCY 5 TRANSPORT TRANSPORT TRANSPORT ATION: ATION SER ATION SER SANDRA R VAN URNLS DIP 00083 [facility] REY 5 [facility] STICK/TAB INC INC LET REAGENT AUTO MICROSCOP Y CULTURE 23193 KRISSY REY BCT 5 [facility] ISOL&PRSM INC INC PTV ID ISOLATE EA URINE SUSCEPTIB 53360 KRISSY KRISSY LTY STDY 5 [facility] ANTIMICRB INC INC IAL MICRO/AGA R DILUTJ CULTURE 63502 KR[facility]SY REY BACTERIAL 5 [facility] INC INC QUANTTATI VE COLONY COUNT URINE NONEMERG A0120 FEDERATED FEDERATED TRNSPRT: 5 MINI-BUS TRANSPORT TRANSPORT MTN ATION SER ATION SER AREA/OTH SYS INCONTINE T4541 [facility] N[facility] 5 HOME HOME PRODUCT HEALTH HEALTH DISPOSABL AGENCY AGENCY E UNDPAD LARGE EA BLOOD 89413 KRISSY REY COUNT 5 [facility] COMPLETE INC INC AUTO&AUTO DIFRNTL WBC NONEMERG A0120 FEDERATED FEDERATED TRNSPRT: 5 MINI-BUS TRANSPORT TRANSPORT MTN ATION SER ATION SER AREA/OTH SYS CULTURE 68115 KRISSY REY BACTERIAL 5 [facility] INC INC QUANTTATI VE COLONY COUNT URINE SUSCEPTIB 63030 KRISSY REY LTY STDY 5 [facility] ANTIMICRB INC INC IAL MICRO/AGA R DILUTJ RENAL 08649 KRISSY REY FUNCTION 5 [facility] PANEL INC INC COLLECTIO 53552 KRISSY REY N VENOUS 5 [facility] BLOOD INC INC VENIPUNCT URE CULTURE 12244 KRISSY REY BCT 5 [facility] ISOL&PRSM INC INC PTV ID ISOLATE EA URINE CREATININ 28865 KRISSY REY E OTHER 5 [facility] SOURCE INC INC PROTEIN 95095 KRISSY RYE XCPT 5 [facility] REFRACTOM INC INC ETRY SERUM PLASMA/WH L BLD URNLS DIP 29037 KRISSY REY 5 [facility] STICK/TAB INC INC LET [place] [address] COMBINED COMBINED THYROID 5 PHYSICIAN PHYSICIAN STIMULATI [...] SER ATION SER WHEELCHAI R VAN ECG 08737 KRISSY CORBIN ROUTINE 5 [facility] W/LEAST P 12 LDS I&[place] [address] KRISSY REY INFUSION 5 [facility] THERAPY INC INC PROPHYLAX IS/DX EA HOUR AMB A0427 [facility] [address] [place] [address] ALS AMBULANCE AMBULANCE EMERGENCY SE SE TRANSPORT LEVEL 1 COMPREHEN 96559 KRISSY REY SIVE 5 [facility] METABOLIC INC INC PANEL ECG 49185 KRISSY REY ROUTINE 5 [facility] ECG INC INC W/LEAST 12 LDS TRCG ONLY W/O I&[place] [address] KRISSY REY INFUSION 5 [facility] THERAPY/P INC INC ROPHYLAXI S /DX 1ST TO 1 HR BLOOD 58090 KRISSY REY COUNT 5 [facility] COMPLETE INC INC AUTO&AUTO DIFRNTL WBC GROUND A0425 ANDERYAlmaz BALDERAS [address] PER AMBULANCE AMBULANCE STATUTE SE SE MILE BLD GLU A4253 [place] TEST/REAG 5 STATES STATES T [facility] BLD SUPPLY SUPPLY GLU MON-50 LANCETS A4259 [facility] PER BOX 5 STATES STATES OF 100 MEDICAL MEDICAL SUPPLY SUPPLY DISPBL T4535 [facility]KATHIE 5 HOME HOME ELD/GUARD HEALTH HEALTH /PAD/UNDG AGENCY AGENCY RMNT INCONT EA BLOOD 26112 COMBINED COMBINED COUNT 5 PHYSICIAN PHYSICIAN COMPLETE S LA S LA AUTO&AUTO DIFRNTL WBC SEDIMENTA 19608 COMBINED COMBINED TION RATE 5 PHYSICIAN PHYSICIAN RBC S LA S LA NON-AUTOM ATED COMPREHEN 96282 COMBINED COMBINED SIVE 5 PHYSICIAN PHYSICIAN [place] [address] COMBINED COMBINED THYROID 5 PHYSICIAN PHYSICIAN STIMULATI S LA S LA NG HORMONE TSH NONEMERGE A0130 FEDERATED FEDERATED NCY 5 TRANSPORT TRANSPORT TRANSPORT ATION: ATION SER ATION SER SANDRA AKBAR OTHER K0108 HOVER[facility] HOVEROUND ACCESSORI 5 ES CORPORATI CORPORATI ON ON PWR E2365 [facility] HOVEROUND WHLCHAIR 5 ACSS U-1 CORPORATI CORPORATI SEALED ON ON LEAD ACID BATTRY EA RENAL 23789 KRISSY REY FUNCTION 5 [facility] PANEL INC INC COLLECTIO 40468 KRISSY REY N VENOUS 5 [facility] BLOOD INC INC VENIPUNCT URE DNA 09241 KRISSY REY ANTIBODY 5 [facility] GALENA/DO INC INC UBLE STRANDED NONEMERGE A0130 FEDERATED FEDERATED NCY 5 TRANSPORT TRANSPORT TRANSPORT ATION: ATION SER ATION SER GERALDOGarrett AKBAR HEPATIC 19193 KRISSY REY FUNCTION 5 [facility] PANEL INC INC BLOOD 61045 KRISSY REY COUNT 5 [facility] COMPLETE INC INC AUTO&AUTO DIFRNTL WBC NORMAL A4256 [facility] LOW AND 5 [facility] STATES HIGH MEDICAL MEDICAL CALIBRATO SUPPLY SUPPLY R SOLUTION/ CHIPS LANCETS A4259 [facility] PER BOX 5 [facility] STATES OF [place] MEDICAL MEDICAL SUPPLY SUPPLY BLD GLU A4253 [facility] TEST/REAG 5 [facility] T [facility] BLD SUPPLY SUPPLY GLU MON-50 SPRING-PO A4258 [facility] W[address]ED [address] [place] [address] STATES DEVICE MEDICAL MEDICAL FOR SUPPLY SUPPLY [...] 4 TRANSPORT TRANSPORT TRANSPORT ATION: ATION SER ATFORMERLY [facility] SER WHEELSAMIRAI R VAN DEBRIDEME 46163 LAUSE FED LAUSE FED NT NAIL 4 ANY METHOD 6/> NASL A7034 [facility] BAI INTRFCE 4 HOME HOME POS [facility] PRSS EQUIPME EQUIPME DEVC W/[place] [address] COMBINED COMBINED THYROID 4 PHYSICIAN PHYSICIAN STIMULATI S LA S LA NG HORMONE TSH COMPREHEN 61126 COMBINED COMBINED SIVE 4 PHYSICIAN PHYSICIAN METABOLIC S LA S LA PANEL BLOOD 06017 COMBINED COMBINED COUNT 4 PHYSICIAN PHYSICIAN COMPLETE S LA S LA AUTO&AUTO DIFRNTL WBC NONEMERG A0120 FEDERATED FEDERATED TRNSPRT: 4 TRANS MINI-BUS TRANSPORT SERVBLUEG [facility] SER NATA AREA/OTH SYS ADLT SZD T4526 [facility] DISPBL 4 HOME HOME INCONT HEALTH HEALTH PROD AGENCY AGENCY UNDAR MED EA BLOOD 84298 KRISSY REY COUNT 4 [facility] COMPLETE INC INC AUTO&AUTO DIFRNTL WBC NONEMERG A0120 FEDERATED FEDERATED TRNSPRT: 4 TRANS MINI-BUS TRANSPORT SERVBLUEG [facility] SER NATA AREA/OTH SYS COMPREHEN 02806 KRISSY REY SIVE 4 [facility] METABOLIC INC INC PANEL COLLECTIO 37111 KRISSY REY N VENOUS 4 [facility] BLOOD INC INC VENIPUNCT URE SUSCEPTIB 02267 KRISSY RYE LTY STDY 4 [facility] ANTIMICRB INC INC IAL MICRO/AGA R DILUTJ CULTURE 16385 KRISSY REY BACTERIAL 4 [facility] INC INC QUANTTATI VE COLONY COUNT URINE CULTURE 00603 KR[facility]SY REY BCT 4 [facility] ISOL&PRSM INC INC PTV ID ISOLATE EA URINE CREATININ 87590 KRISSY Bolivar OTHER 4 [facility] SOURCE INC INC 25 75242 KRISSY REY HYDROXY 4 [facility] INCLUDES [place] [address] KRISSY REY PARATHORM 4 [facility] ONE INC INC URNLS DIP 82600 KRISSY REY 4 [facility] STICK/TAB INC INC LET REAGENT AUTO MICROSCOP Y PROTEIN 78897 KRISSY REY XCPT 4 [facility] REFRACTOM INC INC ETRY SERUM PLASMA/WH L BLD RADEX 66763 KRISSY REY UPPER GI 4 [facility] W/WO INC INC GLUCAGON/ DELAY IMAGES W/KUB OPHTH 922[address] [facility] 4 VISION XM&EVAL CENTER COMPRHNSV ESTAB PT 1/> DETERMINA 55536 FARIDA WALKER [facility] TION 4 VISION REFRACTIV CENTER E STATE [...] ATION: ATION SER NATA Car[place]quillo VAN PROTEIN [id number] KR[facility] CASTROON XCPT 4 [facility] REFRACTOM INC INC ETRY SERUM PLASMA/WH L BLD URNLS DIP 82010 [facility] STICK/TAB INC INC LET REAGENT AUTO MICROSCOP Y CREATININ 63608 [facility] RE[facility] E OTHER 4 [facility] SOURCE INC INC COLLECTIO 44460 [facility] RE[facility] N VENOUS 4 [facility] BLOOD INC INC VENIPUNCT URE RENAL 89959 KRISSY REY FUNCTION 4 [facility] PANEL INC INC BLOOD 05624 KRISSY REY COUNT 4 [facility] COMPLETE INC INC AUTO&AUTO DIFRNTL WBC [...] EQUIPME EQUIPME REPLACEME NT ONLY EACH URINALYSI 60471 [employer], MHC INC, S 4 LIFE SPECIALIST LIFE SPECIALIST QUAL/SEMI ANDREY BALDERAS QUANT CO HOS CO HOS EXCEPT IMMUNOASS AYS PROTEIN 45975 [employer], [employer], TOTAL 4 LIFE SPECIALIST LIFE SPECIALIST XCPT ANDREY BALDERAS REFRACTOM CO HOS CO HOS ETRY URINE 25 31624 [employer], [employer], HYDROXY 4 LIFE SPECIALIST LIFE SPECIALIST INCLUDES ANDREY BALDERAS FRACTIONS CO HOS CO HOS IF PERFORMED CULTURE 17405 Sm[employer] Oy, [employer], BACTERIAL 4 LIFE SPECIALIST LIFE SPECIALIST ANDREY HANSENS QUANTTATI CO HOS CO HOS VE COLONY COUNT URINE RENAL 88974 [employer], [employer], FUNCTION 4 LIFE SPECIALIST LIFE SPECIALIST PANEL ANDREY HANSENS CO HOS CO HOS CULTURE [id number] [employer] O[employer], [employer], BCT 4 LIFE SPECIALIST LIFE SPECIALIST ISOL&PRSM ANDREY BALDERAS PTV ID CO HOS CO HOS ISOLATE EA URINE URNLS DIP 49591 [employer], [employer], 4 LIFE SPECIALIST LIFE SPECIALIST STICK/TAB ANDREY BALDERAS LET RGNT CO HOS CO HOS AUTO W/O MICROSCOP Y CREATININ 98043 [employer], [employer], E OTHER 4 LIFE SPECIALIST LIFE SPECIALIST SOURCE ANDREY HANSENS CO HOS CO HOS DNA 88001 [employer], [employer], ANTIBODY 4 LIFE SPECIALIST LIFE SPECIALIST GALENA/DO ANDREY BALDERAS UBLE CO HOS CO HOS STRANDED COMPLEMEN 96028 [employer], [employer], T ANTIGEN 4 LIFE SPECIALIST LIFE SPECIALIST EACH ANDREY HANSENS COMPONENT CO HOS CO HOS SUSCEPTBI 26258 [employer], [employer], LTY STDY 4 LIFE SPECIALIST LIFE SPECIALIST ANTIMICRB ANDREY RIVEROOLAS IAL AGNT CO HOS CO HOS AGAR DILUTJ NONEMERG A0120 FEDERATED FEDERATED TRNSPRT: 4 MINI-BUS TRANSPORT TRANSPORT MTN ATION SER ATION SER AREA/OTH SYS BLOOD 15964 [employer], [employer], COUNT 4 LIFE SPECIALIST LIFE SPECIALIST COMPLETE ANDREY HANSENS AUTO&AUTO CO HOS CO HOS DIFRNTL WBC ADLT SZD T4526 [facility] DIS[facility] 4 HOME HOME INCONT HEALTH HEALTH PROD AGENCY AGENCY UNDWEAR MED EA CONTINUOU E0601 [place] [facility] S 4 HOME HOME POSITIVE MEDICAL MEDICAL AIRWAY EQUIPME EQUIPME PRESSURE DEVICE NONEMERG A0120 FEDERATED FEDERATED TRNSPRT: 4 MINI-BUS TRANSPORT TRANSPORT MTN [facility]OTH SYS CONTINUOU E0601 [place] BAI S 4 HOME HOME POSITIVE MEDICAL MEDICAL AIRWAY EQUIPME EQUIPME PRESSURE DEVICE NONEMERG A0120 FEDERATED FEDERATED TRNSPRT: 4 MINI-BUS TRANSPORT [facility]OTH S[facility] DISPBL [id number] [facility] LINER/KATHIE 4 HOME HOME ELD/GUARD HEALTH HEALTH /PAD/UNDG AGENCY AGENCY RMNT INCONT EA INCONTINE T4541 [facility] NCE 4 HOME HOME PRODUCT HEALTH HEALTH DISPOSABL AGENCY AGENCY E UNDPAD LARGE EA ADLT SZD T4526 [facility] DISPBL 4 HOME HOME INCONT HEALTH HEALTH PROD AGENCY AGENCY UNDWEAR MED EA ECHO 87894 [facility] R-T 3 Y Y 2D [facility] W/WOM-MOD E COMPL SPEC&COLR D PWR K0823 HOVEROUND HOVEROUND GRP 2 STD 3 CAPTAINS CORPORATI CORPORATI CHAIR PT ON ON TO &=300 LBS NONEMERG A0120 FEDERATED FEDERATED TRNSPRT: 3 MINI-BUS TRANSPORT TRANSPORT MTN ATION CAS ATION [facility]/OTH SYS CONTINUOU E0601 RICHARDS[facility] BAI S 3 HOME HOME POSITIVE MEDICAL MEDICAL AIRWAY EQUIPME EQUIPME PRESSURE DEVICE NONEMERG A0120 FEDERATED FEDERATED TRNSPRT: 3 MINI-BUS TRANSPORT TRANSPORT MTN ATION SER ATION SER [facility]/OT SYS EXTERNAL 03117 Smarp Oy, [employer], ECG 3 LIFE SPECIALIST LIFE SPECIALIST SCANNING ANDREY BALDERAS ANALYSIS CO HOS CO HOS REPORT XTRNL ECG 75088 [employer], [employer], & 48 HR 3 LIFE SPECIALIST LIFE SPECIALIST RECORDING AND[place] [address] Smarp Oy, [employer], PHOSPHORU 3 LIFE SPECIALIST LIFE SPECIALIST S ANDREY ANDREY [place] [address] [employer], [employer], PARATHORM 3 LIFE SPECIALIST LIFE SPECIALIST ONE ANDREY ANDREY CO HOS CO HOS PROTEIN 52148 Smarp Oy, [employer], TOTAL 3 LIFE SPECIALIST LIFE SPECIALIST XCPT ANDREY ANDREY REFRACTOM CO HOS CO HOS ETRY URINE URINALYSI 00110 [employer], [employer], S 3 LIFE SPECIALIST LIFE SPECIALIST QUAL/SEMI ANDREY ANDREY QUANT CO HOS CO HOS EXCEPT IMMUNOASS AYS 25 54572 Smarp Oy, [employer], HYDROXY 3 LIFE SPECIALIST LIFE SPECIALIST INCLUDES ANDREY ANDREY FRACTIONS CO HOS CO HOS IF PERFORMED COMPLEMEN 08561 Smarp Oy, [employer], T TOTAL 3 LIFE SPECIALIST LIFE SPECIALIST HEMOLYTIC ANDREY ANDREY CO HOS CO HOS CREATININ 23822 Smarp Oy, [employer], E OTHER 3 LIFE SPECIALIST LIFE SPECIALIST SOURCE ANDREY ANDREY CO HOS CO HOS URNLS DIP 62568 Smarp Oy, [employer], 3 LIFE SPECIALIST LIFE SPECIALIST STICK/TAB ANDREY HANSENS LET RGNT CO HOS CO HOS AUTO W/O MICROSCOP Y COMPLEMEN 80819 Smarp Oy, [employer], T ANTIGEN 3 LIFE SPECIALIST LIFE SPECIALIST EACH ANDREY ANDREY COMPONENT CO HOS CO HOS DNA 69736 Smarp Oy, [employer], ANTIBODY 3 LIFE SPECIALIST LIFE SPECIALIST GALENA/DO ANDREY ANDREY UBLE CO HOS CO HOS STRANDED COMPREHEN 65228 Smarp Oy, [employer], SIVE 3 LIFE SPECIALIST LIFE SPECIALIST METABOLIC ANDREY ANDREY PANEL CO HOS CO HOS NONEMERG A0120 FEDERATED FEDERATED TRNSPRT: 3 MINI-BUS TRANSPORT TRANSPORT MTN ATION SER ATION SER AREA/OTH SYS BLOOD 39072 Smarp Oy, [employer], COUNT 3 LIFE SPECIALIST LIFE SPECIALIST COMPLETE ANDREY ANDREY AUTO&AUTO CO HOS CO [...] MEDICAL AIRWAY EQUIPME EQUIPME PRESSURE DEVICE LIPID 09580 Smarp Oy, [employer], PANEL 3 LIFE SPECIALIST LIFE SPECIALIST ANDREY ANDREY CO HOS CO HOS COMPREHEN 48183 Smarp Oy, [employer], SIVE 3 LIFE SPECIALIST LIFE SPECIALIST METABOLIC ANDREY ANDREY PANEL CO HOS CO HOS SEDIMENTA 98746 Smarp Oy, [employer], TION RATE 3 LIFE SPECIALIST LIFE SPECIALIST RBC ANDREY ANDREY NON-[place] [address] Smarp Oy, [employer], THYROID 3 LIFE SPECIALIST LIFE SPECIALIST STIMULATI ANDREY ANDREY NG CO HOS CO [...] MEDICAL AIRWAY EQUIPME EQUIPME PRESSURE DEVICE DEBRIDEME 08741 LAUSE FED LAUSE FED NT NAIL 3 ANY METHOD 6/> US BREAST 54466 [facility] Prylos, [employer], REAL 3 LIFE SPECIALIST LIFE SPECIALIST TIME ANDREYDIYA HANSENS W/IMAGE CO HOS CO HOS DOCUMENTA TION PWR K0823 HOVEROUND HOVEROUND GRP 2 STD 3 CAPTAINS CORPORATI CORPORATI CHAIR PT ON ON TO &=300 LBS HOS BED E0260 R[facility] BAI SEMI-ELEC 3 HOME HOME W/ANY MEDICAL MEDICAL TYPE SIDE EQUIPME EQUIPME RAIL W/MATTRSS CONTINUOU E0601 R[facility] BAI S 3 HOME HOME POSITIVE MEDICAL MEDICAL AIRWAY EQUIPME EQUIPME PRESSURE DEVICE MAMMOGRAP 33114 [facility] HY 3 EIDER DEE UNILATERA RADIOLOGY L ASSOCIAT US BREAST 09733 [facility] REAL 3 EIDER DEE TIME RADIOLOGY W/IMAGE ASSOCIAT DOCUMENTA TION NASL A7034 R[facility] BAI INTRFCE 3 HOME HOME POS [facility] PRSS EQUIPME EQUIPME DEVC W/WO HEAD STRAP 25 73945 Smarp Oy, [employer], HYDROXY 3 LIFE SPECIALIST LIFE SPECIALIST INCLUDES ANDREY BALDERAS FRACTIONS CO HOS CO HOS IF PERFORMED PROTEIN 06140 Smarp Oy, [employer], TOTAL 3 LIFE SPECIALIST LIFE SPECIALIST XCPT ANDREY ANDREY REFRACTOM CO HOS CO HOS ETRY URINE RENAL 97702 Smarp Oy, [employer], FUNCTION 3 LIFE SPECIALIST LIFE SPECIALIST PANEL ANDREY HANSENS CO HOS CO HOS CREATININ 24217 [facility] Prylos, [facility] INC, E OTHER 3 LIFE SPECIALIST LIFE SPECIALIST SOURCE ANDREY ANDREY CO HOS CO HOS BLOOD 77586 Smarp Oy, [employer], COUNT 3 LIFE SPECIALIST LIFE SPECIALIST COMPLETE ANDREY HANSENS AUTO&AUTO CO HOS CO [...] /PAD/UNDG AGENCY AGENCY RMNT INCONT EA BLOOD 01097 COMBINED COMBINED COUNT 3 PHYSICIAN PHYSICIAN COMPLETE S LA S LA AUTO&[place] [address] COMBINED COMBINED THYROID 3 PHYSICIAN PHYSICIAN STIMULATI S LA S LA NG HORMONE TSH SEDIMENTA 97322 COMBINED COMBINED TION RATE 3 PHYSICIAN PHYSICIAN RBC S LA S LA NON-AUTOM ATED LIPID 79700 COMBINED COMBINED PANEL 3 PHYSICIAN PHYSICIAN S LA S LA COLLECTIO 99695 [facility] N VENOUS 3 VALLEY TIMOTHY BLOOD INTERNAL VENIPUNCT MED URE HOS BED E0260 RICHARDSON BAI SEMI-ELEC 3 HOME HOME W/ANY MEDICAL MEDICAL TYPE SIDE EQUIPME EQUIPME RAIL W/MATTRSS POLYSOM 09919 CRISTIAN CORNEJO CORNEJO CRISTIAN 6/>YRS 3 SLEEP CONSULTIN W/CPAP G SRV 4/> ADDL IKER ATTND PWR K0823 HOVEROUND HOVEROUND GRP 2 STD 3 CAPTAINS CORPORATI CORPORATI CHAIR PT ON ON TO &=300 LBS PROTEIN 57877 Smarp Oy, [employer], TOTAL 3 LIFE SPECIALIST LIFE SPECIALIST XCPT ANDREY HANSENS REFRACTOM CO HOS CO HOS ETRY URINE URINALYSI 64627 [facility] INC, [facility] INC, S 3 LIFE SPECIALIST LIFE SPECIALIST QUAL/SEMI ANDREY ANDREY QUANT CO HOS CO HOS EXCEPT IMMUNOASS AYS BASIC 35038 [facility] INC, [facility] INC, METABOLIC 3 LIFE SPECIALIST LIFE SPECIALIST PANEL ANDREY ANDREY CALCIUM CO HOS CO HOS TOTAL URNLS DIP 10283 [facility] Prylos, [facility] INC, 3 LIFE SPECIALIST LIFE SPECIALIST STICK/TAB ANDREY BALDERAS LET RGNT CO HOS CO HOS AUTO W/O MICROSCOP Y CREATININ 92001 Smarp Oy, [employer], E OTHER 3 LIFE SPECIALIST LIFE SPECIALIST SOURCE ANDREY ANDREY CO HOS CO HOS CONTINUOU E0601 R[facility] BAI S 3 HOME HOME POSITIVE MEDICAL MEDICAL AIRWAY EQUIPME EQUIPME PRESSURE DEVICE POLYSOM 81221 [facility] 6/>YRS [address] [facility] W/CPAP 4/> ADDL IKER ATTND BASIC 16630 [facility] Prylos, [employer], METABOLIC 3 LIFE SPECIALIST LIFE SPECIALIST PANEL ANDREY ANDREY CALCIUM CO HOS CO HOS TOTAL CATH PLMT 02634 [facility] L HRT & [address] [place] [address] ARTS W/NJX & ANGIO IMG S&I INJECTION J3010 [facility] FENTANYL [address] [place] [address] CITRATE 0.1 MG CLOSURE C1760 [facility] DEVICE [address] [place] [address] VASCULAR INTRDUCR/ C1894 [facility] SHEATH [address] [place] [address] NOT GUID INTRACARD EP NON-LASR INJECTION J2001 [address] LIDOCAINE HCL INTRAVENO US INFUS 10 MG COLLECTIO 05641 [facility] N VENOUS [address] [place] [address] VENIPUNCT URE RADIOLOGI 04307 [facility] [place] SCAL[facility] IRIS C EXAM 3 RADIOLOGY CHEST 2 VIEWS FRONTAL&L ATERAL BASIC 06663 [facility] METABOLIC [address] [place] [address] CALCIUM TOTAL BLOOD 18442 [facility] COUNT [address] [place] [address] AUTOMATED PWR WC K0823 HOVEROUND HOVEROUND GRP [...] TECHNETIU A9539 CHRISTOPHER WHITE M TC-99M 3 [facility] UP TO 25 MCI PULMONARY 66295 [facility] [address] [facility] IMAGING PARTICULA TE TECHNETIU A9540 CHRISTOPHER WHITE M TC-99M 3 [facility] STDY DOSE UP TO 10 MCI ECG 96939 CRISTIAN CORNEJO CORNEJO CRISTIAN ROUTINE 3 ECG CONSULTIN W/LEAST G SRV 12 LDS W/I&R POLYSOM 37771 CRISTIAN CORNEJO CORNEJO CRISTIAN 6/>YRS 3 SLEEP 4/> CONSULTIN ADDL G SRV IKER ATTND POLYSOM 97968 [place] JULIO CESARURBON 6/>YRS 3 [facility] SLEEP 4/> HOSPITAL HOSPITAL ADDL IKER ATTND ECHO 69253 CRISTIAN CORNEJO CORNEJO CRISTIAN TTHRC R-T 3 2D CONSULTIN W/WOM-MOD G SRV E COMPL SPEC&COLR D DUP-SCAN 38346 CRISTIAN CORNEJO CORNEJO CRISTIAN XTR VEINS 3 COMPLETE CONSULTIN G SRV BILATERAL STUDY MYOCARDIA 76336 EILEEN Bran SPECT 3 MEDICAL ANTWAN SINGLE IMAGING STUDY AT ASS REST OR STRESS TECHNETIU A9500 KRISSY Robertson TC-99M 3 [facility] SESTAMIBI INC INC DX PER STUDY DOSE CV STRS 96061 [facility] TST 3 PHYSICIAN XERS&/OR S GROUP RX CONT ECG W/O I&R CV STRS 06562 KRISSY REY TST 3 [facility] XERS&/OR INC INC RX CONT ECG TRCG ONLY INJECTION J2785 KRISSY KRISSY 3 [facility] HOSP REGADENOS INC INC ON 0.1 MG CV STRS 37116 KRISSY CORBIN TST 3 [facility] XERS&/OR HOSPITAL RX CONT P ECG I&R ONLY MYOCARDIA 02386 KRISSY Bran SPECT 3 [facility] HOSP MULTIPLE INC INC STUDIES LIPID 41345 CHRISTOPHER WHITE PANEL 3 [facility] COLLECTIO 21770 JULIO CESARBETZAIDA WHITE N VENOUS 3 [facility] PWR WC K0823 HOVEROUND HOVEROUND GRP 2 STD 3 CAPTAINS CORPORATI CORPORATI CHAIR PT ON ON TO &=300 LBS HOS BED E0260 RICHARDS[facility] BAI SEMI-ELEC 3 HOME HOME W/ANY MEDICAL MEDICAL TYPE SIDE EQUIPME EQUIPME RAIL W/MATTRSS ECG 06332 CHRISTOPHER WHITE ROUTINE 3 [facility] W/LEAST 12 LDS TRCG ONLY W/O I&[place] [address] JULIO CESARBETZAIDA HARRELLBETZAIDA TROPONIN 3 [facility] KETAN OBSERVATI 67382 NAV[facility] MATOS ON CARE 3 EMERGENCY KAMILA DISCHARGE SERVICES MANAGEMEN T ECG 88072 NAVID MATOS ROUTINE 3 EMERGENCY KAMILA ECG SERVICES W/LEAST 12 LDS I&R ONLY BASIC 07365 [facility] [place] METABOLIC 3 [facility] CALCIUM TOTAL BLOOD 82063 [facility] COUNT 3 [facility] HOSPITAL AUTOMATED INJECTION J[address] [facility] TROMETHAM INE PER 15 MG INJECTION J2710 [address] NEOSTIGMI [facility] NE METHYLSUL FATE UP TO 0.5 MG INJECTION J3010 [facility] FENTANY[place] [address] [place] [address] CITRATE [facility] 0.1 MG INITIAL 60524 [place] [address] EMERGENCY PEDRITO IGN ON SERVICES CARE/DAY 70 [place] [address] [facility] THYROID [address] [place] [address] [facility] [place] [address] [facility] FREE [address] [place] [address] THYROXINE [facility] NONINVASI 06693 [facility] VE [address] [place] [address] EAR/PULSE HOSPITAL HOSPITAL OXIMETRY SINGLE DETER INJECTION J[address] [facility] SODIUM 500 MG INJECTION J[address] [facility] HCL PER 1 [place] [address] [facility] TROPONIN [address] [place] [address] [facility] [id number] ON HOSPITAL HOSPITAL SERVICE PER HOUR ECG 77638 [facility] ROUTINE 3 [facility] ECG HOSPITAL HOSPITAL W/LEAST 12 LDS TRCG ONLY W/O I&R INJECTION J1100 [address] [facility] SONE SODIUM PHOSPHATE 1 MG INJECTION J[address] [facility] HCL INTRAVENO US INFUS 10 MG HEMORRHOI 46750 [facility] DECTOMY 3 [facility] HOSPITAL RUBBER BAND LIGATIONS ANOSCOPY 97179 CELIA YANG JR DX 3 SAMIRA SAMIRA W/COLLJ SPEC BR/WA SPX WHEN PRFRMD COLLECTIO 38456 [facility] N VENOUS 3 [facility] V[facility]RE INJECTION J2405 CHRISTOPHER WHITE [address] [facility] ON HCL PER 1 MG ANESTHESI 50126 EILEEN Cruz 3 ANESTHESI CAM ANORECTAL A GROUP PS PROCEDURE CREATINE 61302 CHRISTOPHER WHITE KINASE MB 3 [facility] ONLY ECG 09870 CRISTIAN CORNEJO CORNEJO CRISTIAN ROUTINE 3 MD ECG CONSULTIN W/LEAST G SRV 12 LDS I&R ONLY BLOOD 75149 CHRISTOPHER WHITE COUNT 3 [facility] N BASIC 36507 CHRISTOPHER WHITE METABOLIC 3 [facility] CALCIUM TOTAL BLOOD 13686 [facility] JAIN COUNT [address] [place] [address] T COLLECTIO 01416 CHRISTOPHER WHITE N VENOUS 3 [facility] VENIP[facility] URE [facility] 59398 CHRISTOPHER WHITE ROUTINE 3 [facility] W/LEAST 12 LDS TRCG ONLY [...] MEDICAL MEDICAL TYPE SIDE EQUIPME EQUIPME RAIL W/[facility] [address] [address] DAY INTERNAL MANAGEMEN MED T 30 MIN/< SBSQ [address] CARE/DAY INTERNAL 25 MED MINUTES SBSQ [address] CARE/DAY INTERNAL 25 MED MINUTES RADIOLOGI 05757 [facility] C EXAM 3 LILIBETH CHEST 2 RADIOLOGY VIEWS ASSOCIAT FRONTAL&L ATERAL INITIAL 05109 [facility] 3 VALLEY TIMOTHY CARE/DAY INTERNAL 50 MED MINUTES MAMMOGRAP 29474 [facility] INC, [facility] INC, HY 3 LIFE SPECIALIST LIFE SPECIALIST UNILATERA ANDREY BALDERAS L CO HOS CO HOS US BREAST 36798 [facility] INC, [facility] INC, REAL 3 LIFE SPECIALIST LIFE SPECIALIST TIME ANDREY HANSENS W/IMAGE CO HOS CO HOS DOCUMENTA TION MAMMOGRAP 92787 [facility] INC, [employer], HY 3 LIFE SPECIALIST LIFE SPECIALIST BILATERAL ANDREY ANDREY CO HOS CO HOS PWR WC K0823 HOVEROUND HOVEROUND GRP 2 STD 3 CAPTAINS CORPORATI CORPORATI CHAIR PT ON ON TO &=300 LBS HOS BED E0260 RICHARDS[facility] BAI SEMI-ELEC 3 HOME HOME W/ANY MEDICAL MEDICAL TYPE SIDE EQUIPME EQUIPME RAIL W/MATTRSS SUSCEPTBI 79132 [facility] INC, [facility] INC, LTY STDY 3 LIFE SPECIALIST LIFE SPECIALIST ANTIMICRB ANDREY BALDERAS IAL AGNT CO HOS CO HOS AGAR DILUTJ RENAL 27022 [facility] [employer], [employer], FUNCTION 3 LIFE SPECIALIST LIFE SPECIALIST PANEL ANDREY HANSENS CO HOS CO HOS CREATININ 68834 [facility] INC, [facility] INC, E OTHER 3 LIFE SPECIALIST LIFE SPECIALIST SOURCE ANDREY ANDREY CO HOS CO HOS CULTURE 87205 [facility] Prylos, [facility] INC, BCT 3 LIFE SPECIALIST LIFE SPECIALIST ISOL&PRSM ANDREY BALDERAS PTV ID CO HOS CO HOS ISOLATE EA URINE CULTURE 19049 [facility] INC, [employer], BACTERIAL 3 LIFE SPECIALIST LIFE SPECIALIST ANDREY BALDERAS QUANTTATI CO HOS CO HOS VE COLONY COUNT URINE 25 78414 [facility] INC, [employer], HYDROXY 3 LIFE SPECIALIST LIFE SPECIALIST INCLUDES ANDREY BALDERAS FRACTIONS CO HOS CO HOS IF PERFORMED PROTEIN 40829 [facility] INC, [facility] INC, TOTAL 3 LIFE SPECIALIST LIFE SPECIALIST XCPT ANDREY BALDERAS REFRACTOM [place] [address] [facility] Prylos, [facility] INC, PARATHORM 3 LIFE SPECIALIST LIFE SPECIALIST ONE ANDREY HANSENS CO HOS CO HOS URNLS DIP 33584 [employer], [employer], 3 LIFE SPECIALIST LIFE SPECIALIST STICK/TAB ANDREY BALDERAS LET CO HOS CO HOS REAGENT AUTO MICROSCOP Y BLOOD 69261 Smarp Oy, [employer], COUNT 3 LIFE SPECIALIST LIFE SPECIALIST COMPLETE ANDREY BALDERAS AUTO&AUTO CO HOS CO HOS DIFRNTL WBC RADEX 41947 DENNIS PORTJIMMY [facility] ESOPHAGUS 3 LILIBETH RADIOLOGY ASSOCIAT SCREENING 34180 [place] [facility] 3 LILIBETH MAMMOGRAP RADIOLOGY HY ASSOCIAT BILATERAL ADLT SZD T4526 [facility] DISPBL 3 HOME HOME INCONT HEALTH HEALTH PROD AGENCY AGENCY UNDWEAR MED EA DISPBL T4535 [facility] LINER/KATHIE 3 HOME HOME ELD/GUARD HEALTH HEALTH /PAD/UNDG AGENCY AGENCY RMNT INCONT EA MRI 45046 [facility] 3 Y Y [facility] LUMBAR W/O CONTRAST MATERIAL HOS BED E0260 RICHARDSON YURELL SEMI-ELEC 3 HOME HOME W/ANY MEDICAL MEDICAL TYPE SIDE EQUIPME EQUIPME RAIL W/MATTRSS PWR WC K0823 HOVEROUND HOVEROUND GRP 2 STD 3 CAPTAINS CORPORATI CORPORATI CHAIR PT ON ON TO &=300 LBS COLOREC G0105 CELIA YANG JR CANCR 3 SAMIRA SAMIRA SCR; COLONSCPY INDIVID[place] @[place] [address] KRISSY KRISSY INFUSION 3 [facility] THERAPY INC INC PROPHYLAX IS/DX EA HOUR ANES 23922 [facility] LOWER 3 ANESTH INTESTINE OF [place] [address] KRISSY KRISSY INFUSION 3 [facility]OS[facility] THERAPY/P INC INC ROPHYLAXI S /DX 1ST TO 1 HR NJX 62708 [facility] DX/THER 3 Y Y AGT PVRT [facility] FACET JT LMBR/SAC 1 LEVEL LOCM Q9967 [facility] [phone] Y Y MG/ML [facility] IODINE CONCENTRA TION PER ML INJECTION J3301 [facility] 3 Y Y [facility] LONE ACETONIDE NOS 10 MG ADLT [...] TYPE SIDE EQUIPME EQUIPME RAIL W/MATTRSS THERAPEUT 04946 Smarp Oy, Sm[employer], IC PX 1/> 2 LIFE SPECIALIST LIFE SPECIALIST AREAS ANDREY ANDREY EACH 15 CO HOS CO HOS MIN EXERCISES THERAPEUT 90643 Smarp Oy, [employer], IC PX 1/> 2 LIFE SPECIALIST LIFE SPECIALIST AREAS ANDREY ANDREY EACH 15 CO HOS CO HOS MIN EXERCISES INCONTINE T4541 [facility] NCE 2 HOME HOME PRODUCT HEALTH HEALTH DISPOSABL AGENCY AGENCY E UNDPAD LARGE EA THERAPEUT 21216 Smarp O[employer], [employer], IC PX 1/> 2 LIFE SPECIALIST LIFE SPECIALIST AREAS ANDREY ANDREY EACH 15 CO HOS CO HOS MIN EXERCISES CREATININ 77366 [employer] JEAN, [employer], E BLOOD 2 LIFE SPECIALIST LIFE SPECIALIST ANDRE[place] [address] Smarp O[employer], [employer], UREA 2 LIFE SPECIALIST LIFE SPECIALIST NITROGEN ANDREY ANDREY QUANTITAT CO HOS CO HOS KETAN CT THORAX 88888 [facility] W/O 2 EIDER DEE CONTRAST RADIOLOGY MATERIAL ASSOCIAT THERAPEUT 61775 Smarp Oy, Sm[employer] O[employer], IC PX 1/> 2 LIFE SPECIALIST LIFE SPECIALIST AREAS ANDREY ANDREY EACH 15 CO HOS CO HOS MIN EXERCISES HOS BED E0260 RICHARDSON RICHARDSON SEMI-ELEC 2 HOME HOME W/ANY MEDICAL MEDICAL TYPE SIDE EQUIPME EQUIPME RAIL W/MATTRSS THERAPEUT 18895 Smarp Oy, MHC INC, IC PX 1/> 2 LIFE SPECIALIST LIFE SPECIALIST AREAS ANDREY HANSENS EACH 15 [place] [address] Smarp O[employer], [employer], 1/> AREAS 2 LIFE SPECIALIST LIFE SPECIALIST EA 15 ANDREY RIVEROOLAS MIN GAIT CO HOS CO HOS TRAINJ W/STAIR RADIOLOGI 37393 [facility] INC, [employer], C EXAM 2 LIFE SPECIALIST LIFE SPECIALIST CHEST 2 ANDREY ANDREY VIEWS CO HOS CO HOS FRONTAL&L ATERAL THERAPEUT 33016 Smarp O[employer], [employer], IC PX 1/> 2 LIFE SPECIALIST LIFE SPECIALIST AREAS ANDREY ANDREY EACH 15 CO HOS CO HOS MIN EXERCISES PHYSICAL 64818 Smarp Oy, [employer], THERAPY 2 LIFE SPECIALIST LIFE SPECIALIST EVALUATIO ANDREY ANDREY N CO HOS CO HOS THERAPEUT 05179 Smarp Oy, [employer], IC PX 1/> 2 LIFE SPECIALIST LIFE SPECIALIST AREAS ANDREY ANDREY EACH 15 [place] [address] [facility] ABDOMEN & 2 MEDICAL SCO PELVIS SERV W/O FOUNDATIO CONTRAST MATERIAL RADEX 27948 [facility] SPINE 2 Y Y LUMBOSACR [facility] AL 2/3 VIEWS C-REACTIV 03285 [facility] E PROTEIN 2 Y Y [facility] RADEX 31644 [facility] SHOULDER 2 Y Y COMPLETE [facility] MINIMUM 2 VIEWS COLLECTIO 29463 [facility] N VENOUS 2 Y Y BLOOD [facility] VENIPUNCT URE RADIOLOGI 59240 [facility] C 2 Y Y EXAMINATI [facility] ON KNEE 1/2 VIEWS SEDIMENTA 31496 [facility] TION RATE 2 Y Y RBC [facility] AUTOMATED CREATINE 31782 [facility] KINASE 2 Y Y T[place] [address] [facility] ALDOLASE 2 Y Y [facility] ADLT SZD T4526 [facility] 2 HOME HOME INCONT HEALTH HEALTH PROD AGENCY AGENCY UNDWEAR MED EA DISPBL T4535 [facility] LINER/KATHIE 2 HOME HOME ELD/GUARD HEALTH HEALTH /PAD/UNDG AGENCY AGENCY RMNT INCONT EA BLOOD 22256 Smarp Oy, [employer], COUNT 2 LIFE SPECIALIST LIFE SPECIALIST COMPLETE ANDREY ANDREY AUTO&AUTO CO HOS CO HOS DIFRNTL WBC URNLS DIP 64549 Smarp Oy, [employer], 2 LIFE SPECIALIST LIFE SPECIALIST STICK/TAB ANDREY ANDREY LET CO HOS CO HOS REAGENT AUTO MICROSCOP Y PROTEIN [id number] [facility] [employer], TOTAL 2 LIFE SPECIALIST LIFE SPECIALIST XCPT ANDREY ANDREY REFRACTOM CO HOS CO HOS ETRY URINE CULTURE 22046 [facility] [employer], BACTERIAL 2 LIFE SPECIALIST LIFE SPECIALIST ANDREY ANDREY QUANTTATI CO HOS CO HOS VE COLONY COUNT URINE RENAL 68565 [employer], FUNCTION 2 LIFE SPECIALIST LIFE SPECIALIST PANEL ANDREY ANDREY CO HOS CO HOS CULTURE 85033 [facility] [employer], [employer], BCT 2 LIFE SPECIALIST LIFE SPECIALIST ISOL&PRSM ANDREY ANDREY PTV ID CO HOS CO HOS ISOLATE EA URINE CREATININ [id number] [employer], E OTHER 2 LIFE SPECIALIST LIFE SPECIALIST SOURCE ANDREY ANDREY CO HOS CO HOS SUSCEPTBI 71850 [facility] [employer], [employer], LTY STDY 2 LIFE SPECIALIST LIFE SPECIALIST ANTIMICRB ANDREY ANDREY IAL AGNT CO HOS CO HOS AGAR DILUTJ BASIC 42735 [employer], [employer], METABOLIC 2 LIFE SPECIALIST LIFE SPECIALIST PANEL ANDREY ANDREY CALCIUM CO HOS CO HOS TOTAL BLOOD 36573 [facility] [employer], COUNT 2 LIFE SPECIALIST LIFE SPECIALIST COMPLETE ANDREY ANDREY AUTO&[place] [address] [employer], INFUSION 2 LIFE SPECIALIST LIFE SPECIALIST THERAPY/P ANDREY ANDREY ROPHYLAXI CO HOS CO HOS S /DX 1ST TO 1 [place] [address] [employer], INFUSION 2 LIFE SPECIALIST LIFE SPECIALIST HYDRATION ANDREY ANDREY INITIAL CO HOS CO HOS 31 MIN-[place] [address] [employer], LIPASE 2 LIFE SPECIALIST LIFE SPECIALIST ANDREY ANDREY CO HOS CO HOS URNLS DIP 75129 [employer], 2 LIFE SPECIALIST LIFE SPECIALIST STICK/TAB ANDREY ANDREY LET CO HOS CO HOS REAGENT AUTO MICROSCOP Y DIRECT [id number] [facility] [employer] [facility], ADMISSION 2 LIFE SPECIALIST LIFE SPECIALIST PATIENT [facility] CO HOS CO HOS OBSERV CARE BLOOD 76171 [facility] [employer], [facility], COUNT 2 LIFE SPECIALIST LIFE SPECIALIST COMPLETE ANDREY BALDERAS AUTO&AUTO CO HOS CO HOS DIFRNTL [facility] [id number] [facility] [employer] [facility], OBSERVATI 2 LIFE SPECIALIST LIFE SPECIALIST ON ANDREY BALDERAS SERVICE CO HOS CO HOS PER HOUR SUSCEPTBI 55066 [facility] [employer] [facility], LTY STDY 2 LIFE SPECIALIST LIFE SPECIALIST ANTIMICRB ANDREY BALDERAS IAL AGNT CO HOS CO HOS AGAR DILUTJ COMPREHEN 05120 [facility] [employer], [facility] Prylos, SIVE 2 LIFE SPECIALIST LIFE SPECIALIST METABOLIC ANDREY RIVEROOLAS PANEL CO HOS CO HOS CULTURE 55389 Yecuris [facility] Prylos, BCT 2 LIFE SPECIALIST LIFE SPECIALIST ISOL&PRSM ANDREY BALDERAS PTV ID CO HOS CO HOS ISOLATE EA URINE CULTURE 23348 [facility] [employer], BACTERIAL 2 LIFE SPECIALIST LIFE SPECIALIST ANDREY ANDREY QUANTTATI CO HOS CO HOS VE COLONY COUNT URINE INJECTION J2405 [facility] [employer], 2 LIFE SPECIALIST LIFE SPECIALIST ONDANSETR ANDREY BALDERAS ON HCL CO HOS CO HOS PER 1 MG ADLT SZD T4526 [facility] DIS[facility] 2 HOME HOME INCONT HEALTH HEALTH PROD AGENCY AGENCY UNDWEAR MED EA DISPBL T4535 [facility] LINER/KATHIE 2 HOME HOME ELD/GUARD HEALTH HEALTH /PAD/UNDG AGENCY AGENCY RMNT INCONT EA ECG 31462 CRISTIAN CORNEJO CORNEJO CRISTIAN ROUTINE 2 MD ECG CONSULTIN W/LEAST G SRV 12 LDS I&R ONLY ECG 34754 CRISTIAN CORNEJO CORNEJO CRISTIAN ROUTINE 2 MD ECG CONSULTIN W/LEAST G SRV 12 LDS I&R ONLY HOSPITAL 28201 JAVIER JAVIER DISCHARGE 2 PEDRO PEDRO DAY MANAGEMEN T 30 MIN/< URNLS DIP 88425 [facility] [employer] [facility] Pry[employer], 2 LIFE SPECIALIST LIFE SPECIALIST STICK/TAB ANDREY ANDREY LET CO HOS CO HOS REAGENT AUTO MICROSCOP Y BLOOD 73781 [facility] INC, [employer], COUNT 2 LIFE SPECIALIST LIFE SPECIALIST COMPLETE ANDREY ANDREY AUTO&AUTO CO HOS CO HOS DIFRNTL WBC NATRIURET 36306 [facility] INC, [employer], IC 2 LIFE SPECIALIST LIFE SPECIALIST PEPTIDE ANDRE[place] [address] [facility] INC, [employer], TROPONIN 2 LIFE SPECIALIST LIFE SPECIALIST QUANTITAT ANDREY ANDREY KETAN CO HOS CO HOS CREATINE 82050 [facility] INC, [facility] INC, KINASE 2 LIFE SPECIALIST LIFE SPECIALIST [place] [address] [facility] INC, [employer], INFUSION 2 LIFE SPECIALIST LIFE SPECIALIST HYDRATION ANDREY ANDREY INITIAL CO HOS CO HOS 31 MIN-1 HOUR CULTURE 09753 [facility] INC, [facility] INC, BACTERIAL 2 LIFE SPECIALIST LIFE SPECIALIST ANDREY ANDREY QUANTTATI CO HOS CO HOS VE COLONY COUNT URINE RADIOLOGI 94119 [facility] INC, [facility] INC, C 2 LIFE SPECIALIST LIFE SPECIALIST EXAMINATI ANDREY ANDREY ON CHEST CO HOS CO HOS SINGLE VIEW FRONTAL CULTURE 30677 [facility] INC, [facility] INC, BCT 2 LIFE SPECIALIST LIFE SPECIALIST ISOL&PRSM ANDREY ANDREY PTV ID CO HOS CO HOS ISOLATE EA URINE CREATINE 93892 [employer], [employer], KINASE MB 2 LIFE SPECIALIST LIFE SPECIALIST FRACTION ANDREY ANDREY ONLY CO HOS CO HOS FIBRIN 47094 [facility] INC, [employer], DGRADJ 2 LIFE SPECIALIST LIFE SPECIALIST PRODUCTS ANDREY ANDREY D-DIMER CO HOS CO HOS QUAL/SEMI HEATHER PROTHROMB 20658 [facility] INC, [employer] INC, IN TIME 2 LIFE SPECIALIST LIFE SPECIALIST ANDREY ANDREY CO HOS CO HOS COMPREHEN 72418 [facility] INC, [employer], SIVE 2 LIFE SPECIALIST LIFE SPECIALIST METABOLIC ANDREY ANDREY PANEL CO HOS CO HOS SUSCEPTBI 07604 [facility] INC, [employer], LTY STDY 2 LIFE SPECIALIST LIFE SPECIALIST ANTIMICRB ANDREY ANDREY IAL AGNT CO HOS CO HOS AGAR DILUTJ ECG 75662 [facility] INC, [employer] INC, ROUTINE 2 LIFE SPECIALIST LIFE SPECIALIST ECG ANDREY ANDREY W/LEAST CO HOS CO HOS 12 LDS TRCG ONLY W/O [place] [address] [facility], [facility] INC, INFUSION 2 LIFE SPECIALIST LIFE SPECIALIST THERAPY/P ANDREY ANDREY ROPHYLAXI CO HOS CO HOS S /DX 1ST TO 1 HR COMPREHEN 30126 [facility], [facility] INC, SIVE 2 LIFE SPECIALIST LIFE SPECIALIST METABOLIC ANDREY ANDREY PANEL CO HOS CO HOS LIPID 87658 [facility], [facility], PANEL 2 LIFE SPECIALIST LIFE SPECIALIST [place] [address] [facility], [facility] INC, FREE 2 LIFE SPECIALIST LIFE SPECIALIST THYROXINE ANDREY [place] [address] [facility], [facility], THYROID 2 LIFE SPECIALIST LIFE SPECIALIST STIMULATI ANDREY ANDREY NG CO HOS CO HOS HORMONE TSH ECG 80569 CRISTIAN CORNEJO CORNEJO CRISTIAN ROUTINE 2 MD ECG CONSULTIN W/LEAST G SRV 12 LDS I&R ONLY URNLS DIP 66239 [facility], [facility] INC, 2 LIFE SPECIALIST LIFE SPECIALIST STICK/TAB ANDREY ANDREY LET CO HOS CO HOS REAGENT AUTO MICROSCOP Y ARTERIAL 77097 [facility] Prylos, [facility] INC, PUNCTURE 2 LIFE SPECIALIST LIFE SPECIALIST WITHDRAWA ANDREY ANDREY L BLOOD CO HOS CO HOS DX GASES 13539 [facility] Prylos, [facility] INC, BLOOD PH 2 LIFE SPECIALIST LIFE SPECIALIST DIRECT ANDREY HANSENS FELA XCPT CO HOS CO HOS PULSE OXIMITRY CULTURE 90840 [facility] Prylos, [facility] INC, BACTERIAL 2 LIFE SPECIALIST LIFE SPECIALIST ANDREY ANDREY QUANTTATI CO HOS CO HOS VE COLONY COUNT URINE INJECTION J2280 [facility] Prylos, [facility] INC, 2 LIFE SPECIALIST LIFE SPECIALIST MOXIFLOXA ANDREY ANDREY KJ 100 CO HOS CO HOS MG COMPREHEN 12732 [facility] Prylos, [facility] INC, SIVE 2 LIFE SPECIALIST LIFE SPECIALIST METABOLIC ANDREY ANDREY PANEL CO HOS CO HOS ECG 75413 [facility], [facility] INC, ROUTINE 2 LIFE SPECIALIST LIFE SPECIALIST ECG ANDREY ANDREY W/LEAST CO HOS CO HOS 12 LDS TRCG ONLY W/O I&R RADIOLOGI 09360 [facility], [facility], C EXAM 2 LIFE SPECIALIST LIFE SPECIALIST CHEST 2 ANDREY ANDREY VIEWS CO HOS CO HOS FRONTAL&L ATERAL RADIOLOGI 57993 [facility] EXAM 2 LILIBETH CHEST 2 RADIOLOGY VIEWS ASSOCIAT FRONTAL&L ATERAL SUSCEPTBI 76759 [facility] Prylos, [facility] INC, LTY STDY 2 LIFE SPECIALIST LIFE SPECIALIST ANTIMICRB ANDREY BALDERAS IAL AGNT CO HOS CO HOS AGAR DILUTJ CULTURE 23144 [facility] Prylos, [facility] INC, BCT 2 LIFE SPECIALIST LIFE SPECIALIST ISOL&PRSM ANDREY BALDERAS PTV ID CO HOS CO HOS ISOLATE EA URINE BASIC 69254 [facility] [employer], METABOLIC 2 LIFE SPECIALIST LIFE SPECIALIST PANEL ANDREY BALDERAS [place] [address] [facility] [employer] [facility] P[employer], INFUSION 2 LIFE SPECIALIST LIFE SPECIALIST HYDRATION ANDREY BALDERAS EACH [place] [address] [facility] Prylos, [facility] INC, INFUSION 2 LIFE SPECIALIST LIFE SPECIALIST HYDRATION ANDREY BALDERAS INITIAL CO HOS CO HOS 31 MIN-1 HOUR BLOOD 75117 [facility] Prylos, [facility] Prylos, COUNT 2 LIFE SPECIALIST LIFE SPECIALIST COMPLETE ANDREY BALDERAS AUTO&AUTO CO HOS CO HOS DIFRNTL WBC HOSPITAL G0378 [facility] [employer] [facility] Prylos, OBSERVATI 2 LIFE SPECIALIST LIFE SPECIALIST ON ANDREY BALDERAS SERV[place] [address] [facility] P[employer]los, [facility] P[employer], INFUSION 2 LIFE SPECIALIST LIFE SPECIALIST THERAPY/P ANDREY BALDERAS ROPHYLAXI CO HOS CO HOS S /DX 1ST TO 1 HR TECHNETIU A9500 [facility] TC-99M 2 Y Y [facility] DX PER STUDY DOSE INJECTION J0280 [facility] 2 Y Y [facility] UP TO 250 MG MYOCARDIA 18712 [facility] SPECT 2 Y Y [facility] STUDIES CV STRS 59630 [facility] PICHARDO TST 2 MEDICAL SAMIRA XERS&/OR SERV RX CONT FOUNDATIO ECG W/O I&R CV STRS 29930 [facility] 2 Y Y [facility]ERS&/OR [facility] CONT ECG TRCG ONLY INJECTION J2785 [facility] 2 Y Y [facility] ON 0.1 MG CV STRS 13363 [place] PICHARDO TST 2 MEDICAL SAMIRA XERS&/OR SERV RX CONT [place]OUNDATIO ECG I&[place] [address] [place] DISANTIS ABDOMEN & 2 MEDICAL JEWELS PELVIS SERV W/O FOUNDATIO CONTRAST MATERIAL ECG 10222 CRISTIAN CORNEJO CORNEJO CRISTIAN ROUTINE 2 MD ECG CONSULTIN W/LEAST G SRV 12 LDS I&R ONLY URINLS 39864 [facility] DAVEY DIP 2 NURSE GWE STICK/TAB PRACTITIO LET NER GR REAGNT NON-AUTO MICRSCPY SUSCEPTBI 18061 [facility] STDY 2 Y Y [facility] IAL AGNT AGAR DILUTJ SUSCEPTIB 47009 [facility] 2 Y Y [facility] IAL MICRO/AGA R DILUTJ CULTURE 34817 [facility] BACTERIAL 2 Y Y [facility] QUANTTATI VE COLONY COUNT URINE CUL BACT 97306 [facility] AEROBIC 2 Y Y [facility] METHS DEFINITIV E EA ISOL ECG 24759 CRISTIAN CORNEJO CORNEJO CRISTIAN ROUTINE 2 MD ECG CONSULTIN W/LEAST G SRV 12 LDS I&R ONLY ECG 93323 CRISTIAN CORNEJO CORNEJO CRISTIAN ROUTINE 1 MD ECG CONSULTIN W/LEAST G SRV 12 LDS I&R ONLY ECG 03804 CRISTIAN CORNEJO CORNEJO CRISTIAN ROUTINE 1 MD ECG CONSULTIN W/LEAST G SRV 12 LDS I&R ONLY BLOOD 42964 ANDREY CHAVARRIA 1 CO CO SMEAR [facility] MCRSCP W/[place] [address] ANDREY BALDERAS BLOOD/URI 1 CO CO C ACID [facility] URNLS DIP 60681 ANDREY BALDERAS 1 CO CO STICK/TAB [facility] LET REAGENT AUTO MICROSCOP Y BLOOD 48177 ANDREY BALDERAS COUNT 1 CO CO COMPLETE [facility] AUTO&AUTO DIFRNTL WBC PROTEIN 24806 ANDREY BALDERAS TOTAL 1 CO CO XCPT [facility] [place] [address] ANDREY BALDERAS PHOSPHORU 1 CO CO S HOSPITAL HOSPITAL INORGANIC CULTURE 81519 ANDREY BALDERAS BACTERIAL 1 CO CO [facility] QUANTTATI VE COLONY COUNT URINE COLLECTIO 27251 ANDREY BALDERAS N VENOUS 1 CO DE BLOOD [facility] VENIPUNCT URE CULTURE 89137 ANDREY BALDERAS BCT 1 CO CO ISOL&PRSM [facility] PTV ID ISOLATE EA URINE CREATININ 23849 ANDREY Bolivar OTHER 1 CO CO SOURCE [facility] SUSCEPTBI 47819 ANDREY BALDERAS LTY STDY 1 CO DE ANTIMICRB [facility] IAL AGNT AGAR DILUTJ COMPREHEN 17059 ANDREY BALDERAS SIVE 1 CO [facility] PANEL DUP-SCAN 79965 [place] MARIO XTR VEINS 1 MEDICAL [place] [facility] [place] FOUNDATIO L/LIMITED STUDY RADIOLOGI 92614 [place] [facility] C EXAM 1 MEDICAL CHEST 2 SERV VIEWS FOUNDATIO FRONTAL&L ATERAL ECG 01128 [place] OLIVEIRA ROUTINE 1 MEDICAL NAN ECG SERV W/LEAST FOUNDATIO 12 LDS I&R ONLY HOSPITAL 24553 [facility] DISCHARGE 1 [place] FAMILY DAY MEDICINE MANAGEMEN P T 30 MIN/< BLOOD 56651 ANDREY BALDERAS COUNT 0 CO CO SMEAR [facility] MCRSCP W/MNL DIFRNTL WBC COUNT URNLS DIP 59685 ANDREY BALDERAS 0 CO CO STICK/TAB [facility] LET REAGENT AUTO MICROSCOP Y PROTEIN 94422 ANDREY BALDERAS TOTAL 0 CO CO XCPT [facility] [place] [address] ANDREY BALDERAS PARATHORM 0 CO CO [facility] CREATINE 92830 ANDREY BALDERAS KINASE 0 CO CO TOTAL [facility] 25 23420 ANDREY BALDERAS HYDROXY 0 CO CO INCLUDES HOSPITAL [place] [address] ANDREY BALDERAS ALDOLASE 0 CO [facility] C-REACTIV 62248 ANDREY Bolivar PROTEIN 0 CO CO HOSPITAL HOSPITAL DNA 42727 ANDREY BALDERAS ANTIBODY 0 CO CO [facility] HOSPITAL UBLE STRANDED RADEX HIP 62340 ANDREY BALDERAS 0 CO [facility] L COMPLETE MINIMUM 2 VIEWS SEDIMENTA 72933 ANDREY BALDERAS TION RATE 0 CO [facility]PITAL NON-AUTOM ATED COMPLEMEN 45947 ANDREY BALDERAS T ANTIGEN 0 CO [facility] COMPONENT CREATININ 39516 ANDREY Bolivar OTHER 0 CO [facility] OVA&ZONIA 69575 ANDREY BALDERAS ITES 0 CO CO DIRECT [facility] SMEARS CONCENTRA TION & ID RENAL 79051 ANDREY BALDERAS FUNCTION 0 CO CO [facility] COLLECTIO 57229 ANDREY BALDERAS N VENOUS 0 CO CO BLOOD [facility] VENIPUNCT URE COMPLEMEN 69873 ANDREY BALDERAS T TOTAL 0 CO CO HEMOLYTIC [facility] RADIOLOGI 51317 ANDREY BALDERAS C 0 CO CO KIT [facility] ON PELVIS 1/2 VIEWS RADIOLOGI 26586 ANDREY BALDERAS C 0 CO CO KIT [facility] ON KNEE 3 VIEWS COLLECTIO 07475 [facility] N VENOUS 0 Y Y BLOOD [facility] VENIPUNCT URE COMPREHEN 05196 [facility] SIVE 0 Y Y METABOLIC [facility] PANEL BLOOD 17040 [facility] UNIV[facility] COUNT 0 Y Y COMPLETE [facility] AUTO&AUTO DIFRNTL WBC BLOOD 86739 [facility] COUNT 0 Y Y COMPLETE HOSPITAL HOSPITAL AUTO&AUTO DIFRNTL WBC COMPREHEN 18663 [facility] UNIVERSIT SIVE 0 Y Y METABOLIC [facility] PANEL COLLECTIO 59627 [facility] UNIVERS[facility] N VENOUS 0 Y Y BLOOD [facility] VENIPUNCT URE CHROMATOG 48317 [facility]IT UNIVERSIT SURYA 0 Y Y HEATHER [facility] COLUMN 1 ANALYTE KARLENE CATARACT 30839 COMMONWEA COMMONWEA REMOVAL 0 LTH EYE LT EYE INSERTION SURG SURG OF LENS AMBULA AMBULA ANESTHESI 33646 SUREKHA MOORE G A EYE 0 ANESTHESI LENS A ASSOC SURGERY OPH BMTRY 36105 PHIILPP RIVERO BRANT PRTL 0 ROBERT COHER INTRFRMTR Y IO LENS PWR KELLEE ECG 32966 [facility] ROUT[facility] 0 Y Y ECG [facility] W/LEAST 12 LDS TRCG ONLY W/O I&R Encounters Encounter Start End Date Code Location Performer Type Date [facility], 7 7 HOME INPATIENT HEALTH [facility] 7 7 [facility] OUTPATIEN [place] T OFFICE 34955 [place] OUTPATIEN 7 7 MEDICAL T VISIT SERV 25 FOUNDATIO MINUTES [facility] - 7 7 [facility] INC [facility], 7 7 HOME INPATIENT HEALTH AGENCY OFFICE 57906 [place] ARIANE OUTPATIEN 7 7 MEDICAL JR T NEW 45 SERV MINUTES FOUNDAT[place] OFFICE 51910 [place] OUTPATIEN 7 7 MEDICAL T VISIT SERV 40 FOUNDATIO MINUTES [facility], 7 7 HOME INPATIENT HEALTH AGENCY OFFICE 10084 [place] OUTPATIEN 7 7 MEDICAL T VISIT SERV 40 FOUNDATIO MINUTES [facility] - 7 7 [facility]ALTHCAR OUTPATIEN E [facility], 7 7 HOME INPATIENT HEALTH AGENCY OFFICE 40003 [facility] WILMER AMADOR OUTPATIEN 6 6 MEDICAL T VISIT SERV 25 FOUNDATIO MINUTES [facility] KRISSY - 6 6 [facility] OUTPATIEN INC T OFFICE 58968 [facility] [place] [place] OUTPATIEN 6 6 PHYSICIAN T VISIT S GROUP 10 MINUTES HOSPITAL KRISSY - 6 6 MEM [facility] OUTPATIEN [facility] T OFFICE 55098 [facility] OUTPATIEN 6 6 PHYSICIAN T VISIT S GROUP 10 MINUTES OFFICE 03470 [facility] OUTPATIEN 6 6 PHYSICIAN T VISIT S GROUP 15 MINUTES HOSPITAL KRISSY - 6 6 [facility] OUTPATIEN [facility] OFFICE 54094 [facility] OUTPATIEN 6 6 PHYSICIAN T NEW 30 S GROUP MINUTES HOSPITAL KRISSY - 6 6 [facility]PATI[facility] - 6 6 [facility] - [facility] 78393 [place] SIMEONI OUTPATIEN 6 6 MEDICAL T VISIT SERV 25 FOUNDATIO MINUTES [facility], 6 6 HOME INPATIENT HEALTH AGENCY EMERGENCY 68562 [facility] DEPT 6 6 HARIS VISIT EMERGENCY HIGH PHYS SEVERITY& THREAT [facility], 6 6 HOME INPATIENT HEALTH AGENCY OFFICE 65976 [place] SIMEONI OUTPATIEN 6 6 MEDICAL T VISIT SERV 40 FOUNDATIO MINUTES [facility] UNIVERSIT - 6 6 Y [facility] T OFFICE 25213 [place] JAQUEZ OUTPATIEN 6 6 [facility] T VISIT INTERNAL 15 MEDI MINUTES HOSPITAL KRISSY - OTHER 6 6 MEM HOSP [facility] HOME [facility], 6 6 HOME INPATIENT HEALTH AGENCY OFFICE 22987 [place] YOVANY OUTPATIEN 6 6 [facility] NICOLA T VISIT INTERNAL 15 MEDI MINUTES OFFICE 33635 [place] AMADOR OUTPATIEN 6 6 MEDICAL T VISIT SERV 25 FOUNDATIO MINUTES HOSPITAL KRISSY - OTHER 6 6 MEM HOS[facility] INC OFFICE 18612 [place] LUJAN OUTPATIEN 6 6 YONY KRIS T NEW 30 MINUTES HOME [facility] HEALTH, 6 6 HOME INPATIENT HEALTH [facility] KRISSY - 6 6 [facility] OUTPATIEN INC T OFFICE 28188 [place] BESSON OUTPATIEN 6 6 VALLEY TIMOTHY T VISIT INTERNAL 25 MED MINUTES HOSPITAL UNIVERSIT - 5 5 Y [facility] T OFFICE 62828 [facility] ARGUETA OUTPATIEN 5 5 MEDICAL T VISIT SERV 40 FOUNDATIO MINUTES N EMERGENCY 04002 [facility] 5 5 [facility] HIGH/URGE NT SEVERITY EMERGENCY 91563 TONIO JACKSON DEPT 5 5 PHYSICIAN U CAROL VISIT S, [facility] HIGH SEVERITY& THREAT [facility] KRISSY - 5 5 MEM HOS[facility] OUTPATIEN INC [facility], 5 5 HOME INPATIENT HEALTH AGENCY OFFICE 66917 [facility] 5 PHYSICIAN T VISIT S GROUP 15 MINUTES HOME [facility] 5 5 HOME INPATIENT HEALTH AGENCY OFFICE 28414 [place] B[place] OUTPATIEN 5 5 [facility] T VISIT INTERNAL 15 MED MINUTES HOSPITAL KRISSY - 5 5 [facility] OUTPATIEN INC T OFFICE 46564 [facility] OUTPATIEN 5 5 PHYSICIAN T NEW 30 S GROUP MINUTES HOSPITAL KRISSY - 5 5 [facility] OUTPATIEN INC [facility] KRISSY - 5 5 [facility] OUTPATIEN INC T OFFICE 33080 [facility] AMADOR OUTPATIEN 5 5 MEDICAL T VISIT SERV 25 FOUNDATIO MINUTES N OFFICE 41950 [place] JQAUEZ OUTPATIEN 5 5 [facility] T VISIT INTERNAL 15 MEDI MINUTES HOSPITAL KRISSY - OTHER 5 5 MEM [facility] INC OFFICE 13231 [place] JAQUEZ OUTPATIEN 5 5 [facility] T VISIT INTERNAL 25 MEDI MINUTES HOME [facility], 5 5 HOME INPATIENT HEALTH AGENCY [facility], 5 5 DIST OTHER HEALTH DEPT [facility] KRISSY - 5 5 [facility] OUTPATIEN INC T [facility], 5 5 DIST OTHER HEALTH DEPT [facility] HEALTH, 5 5 HOME INPATIENT HEALTH AGENCY [facility], 5 5 DIST OTHER HEALTH DEPT [facility] OFFICE 74385 [facility] ARGUETA OUTPATIEN 5 5 MEDICAL T VISIT SERV 40 FOUNDATIO MINUTES HOSPITAL KRISSY - 5 5 [facility] OUTPATIEN INC T EMERGENCY 54451 KRISSY 5 5 MEM [facility] DEPARTMEN INC T VISIT HIGH/URGE NT SEVERITY [facility], 5 5 DIST OTHER HEALTH DEPT [facility] HEALTH, 5 5 DIST OTHER HEALTH DEPT [facility] HOME [facility] HEALTH, 5 5 HOME OUTPATIEN HEALTH T AGENCY OFFICE 80447 [place] BESSON OUTPATIEN 5 5 [facility] TIMOTHY T VISIT INTERNAL 15 MED MINUTES HOME [facility], 5 5 DIST OTHER HEALTH DEPT [facility] HOME [facility] HE[facility], 5 5 DIST OTHER HEALTH DEPT [facility] OFFICE 86049 [facility] AMADOR OUTPATIEN 5 5 MEDICAL T VISIT SERV 25 FOUNDATIO MINUTES N [facility], 5 5 DIST OTHER HEALTH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 HOME [facility], 5 5 HOME OUTPATIEN HEALTH T AGENCY OFFICE 19476 [place] KRI OUTPATIEN 5 5 MEDICAL T VISIT SERV 40 FOUNDATIO MINUTES N [facility], 5 5 DIST OTHER HEALTH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 HOME [facility], 4 4 HOME OUTPATIEN HEALTH T AGENCY [facility], 4 4 DIST OTHER HEALTH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 [facility], 4 4 DIST OTHER HEALTH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 OFFICE 05605 [place] ELLIE OUTPATIEN 4 4 MEDICAL T VISIT SERV 15 FOUNDATIO MINUTES N [facility], 4 4 HOME OUTPATIEN HEALTH T AGENCY OFFICE 56703 [place] AMADOR OUTPATIEN 4 4 MEDICAL T VISIT SERV 25 FOUNDATIO MINUTES HOSPITAL KRISSY - 4 4 [facility] OUTPATIEN INC T HOSPITAL KRISSY - 4 4 [facility] OUTPATIEN INC T [facility] HE[facility], 4 4 DIST OTHER HEALTH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 HOME [facility], 4 4 DIST OTHER HEALTH DEPT [facility] HOME [facility] HE[facility], 4 4 HOME OUTPATIEN HEALTH T AGENCY [facility], 4 4 DIST OTHER HEALTH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 OFFICE 53235 [place] GUILLEN PERRY OUTPATIEN 4 4 MEDICAL T VISIT SERV 25 FOUNDATIO MINUTES OFFICE 00760 [place] HERBERT KRI OUTPATIEN 4 4 MEDICAL T VISIT SERV 25 FOUNDATIO MINUTES HOSPITAL [facility] - 4 4 [facility] OUTPATIEN INC T [facility], 4 4 DIST OTHER HEALTH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 HOME [facility], 4 4 DIST OTHER HEALTH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 HOME [facility], 4 4 HOME OUTPATIEN HEALTH T AGENCY [facility], 4 4 DIST OTHER HEALTH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 OFFICE [address] [place] HERBERT ARGUETA OUTPATIEN 4 4 MEDICAL T VISIT SERV 40 FOUNDATIO MINUTES [facility], 4 4 DIST OTHER HEALTH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 OFFICE [address]80 [place] WILMER AMADOR OUTPATIEN 4 4 MEDICAL T VISIT SERV 25 FOUNDATIO MINUTES [facility], ACCESS 4 4 [facility], 4 4 DIST OTHER HEALTH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 HOME [facility], 4 4 HOME OUTPATIEN HEALTH T AGENCY [facility], 4 4 DIST OTHER HEALTH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 OFFICE 62301 [place] [facility] 4 [facility] T VISIT INTERNAL 15 MED MINUTES HOME [facility], 4 4 HOME OUTPATI HEALTH T AGENCY [facility], 4 4 DIST OTHER HEALTH DEPT [facility] - [facility] 83911 [facility] AM[facility]OR OUTPATIEN 3 3 MEDICAL T VISIT SERV 25 FOUNDATIO MINUTES [facility], ACCESS 3 3 [facility], ACCESS 3 3 [facility], 3 3 DIST OTHER HEALTH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 OFFICE [address]6 [place] HEBER OUTPATIEN 3 3 MEDICAL EJ T NEW 45 SERV MINUTES [facility], [facility] 3 DIST OTHER HEALTH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 [facility], ACCESS 3 3 [facility], 3 3 HOME OUTPATIEN HEALTH T AGENCY OFFICE [address]8417 [place] HERBERT ARGUETA OUTPATIEN 3 3 MEDICAL T VISIT SERV 40 FOUNDATIO MINUTES HOME [facility], 3 3 DIST OTHER HEALTH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 OFFICE 99835 MINH AMADOR OUTPATIEN 3 3 MEDICAL T VISIT SERV 25 FOUNDATIO MINUTES [email or web address], 3 3 DIST OTHER HEALTH DEPT [facility], ACCESS 3 3 [facility] [facility], ACCESS 3 3 [facility], ACCESS 3 3 [facility], 3 3 DIST OTHER HEALTH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 OFFICE [id number] LICK[place] BESSON OUTPATIEN 3 3 [facility] TIMOTHY T VISIT INTERNAL 15 MED MINUTES HOME LOOKCAST, 3 3 HOME OUTPATIEN HEALTH T AGENCY HOME [facility] NetScaler, 3 3 DIST OTHER HEALTH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 OFFICE 85766 ALLRAN JR ALLRAN JR OUTPATIEN 3 3 SAMIRA SAMIRA T VISIT 15 MINUTES OFFICE [id number] CRISTIAN CLEMENTE MURILLO CAR OUTPATIEN 3 3 MD T VISIT CONSULTIN 25 G SERV MINUTES OFFICE [id number] [facility] BESSON OUTPATIEN 3 3 [facility] TIMOTHY T VISIT INTERNAL 25 MED MINUTES [facility], ACCESS 3 3 [facility] [place] - 3 3 [facility], ACCESS 3 3 [facility] - 3 3 [facility] [place] - 3 3 [facility], 3 3 DIST OTHER HEALTH DEPT [facility] [place] - 3 3 [facility] [place] - 3 3 [facility], 3 3 DIST OTHER [facility] KRISSY - 3 3 [facility] OFF[facility] [id number] [facility] 3 3 [facility] T VISIT INTERNAL 15 MED MINUTES HOSPITAL [place] - 3 3 [facility] [place] - 3 3 [facility], 3 3 DIST OTHER [facility] OFFICE 87543 CELIA [facility] 3 3 [facility] SAMIRA T VISIT 15 MINUTES HOME CRITICAL ACCESS HOSPITAL HEALTH, 3 3 DIST OTHER HEALTH DEPT [facility] CR[facility]ICAL [facility] HEALTH, 3 3 HOME [facility] T AGENCY CRITICAL [facility], ACCESS 3 3 [facility] HOME CRITICAL [facility]OSPITAL HEALTH, 3 3 DIST OTHER HEALTH DEPT [facility] CRITICAL [facility], ACCESS 3 3 [facility] OFFICE 03294 MINH AMADOR [facility] 3 3 MEDICAL T VISIT SERV 25 FOUNDATIO MINUTES OFFICE 48294 CELIA YANG JR OUTPATIEN 3 3 SAMIRA SAMIRA T VISIT 15 MINUTES CRITICAL [facility], ACCESS 3 3 [facility] HOME [facility]ICAL [facility]OSPITAL HEALTH, 3 3 DIST OTHER HEALTH DEPT [facility] CRITICAL [facility], ACCESS 3 3 [facility] CR[facility]ICAL [facility], ACCESS 3 3 [facility] HOME CRITICAL [facility]OSPITAL HEALTH, 3 3 HOME OUTPATI HEALTH T [facility] - 3 3 [facility] KRISSY - 3 3 [facility] OUTPATIEN INC T HOME CRITICAL ACCESS HOSPITAL HEALTH, 3 3 DIST OTHER HEALTH DEPT [facility]PITAL [facility] - 3 3 [facility] 29238 MINH HERBERT ARGUETA OUTPATIEN 2 2 MEDICAL T VISIT SERV 25 FOUNDATIO MINUTES HOME CRITICAL [facility] HEALTH, 2 2 [facility] T AGENCY OFFICE 39955 CELIA YANG JR OUTPATIEN 2 2 SAMIRA SAMIRA T NEW 30 MINUTES HOME CRITICAL [facility]OSPITAL HEALTH, 2 2 DIST OTHER HEALTH DEPT [facility] HOME CRITICAL ACCESS HOSPITAL HEALTH, 2 2 HOME OUTPATI HEALTH T AGENCY CRITICAL [facility], ACCESS 2 2 [facility] CR[facility], ACCESS 2 2 [facility] CR[facility]ICAL [facility], ACCESS 2 2 [facility] CR[facility]ICAL [facility], ACCESS 2 2 [facility] OFFICE 29198 MINH LUZMARIA OUTPATIEN 2 2 MEDICAL XOCHITL T VISIT SERV 15 FOUNDATIO MINUTES HOSPITAL UNIVERSIT - 2 2 Y OUTPATIEN HOSPITAL T HOME CRITICAL ACCESS HOSPITAL HEALTH, 2 2 DIST OTHER HEALTH DEPT [facility] OFFICE [address]37 [place] HERBERT ARGUETA OUTPATIEN 2 2 MEDICAL T VISIT SERV 25 FOUNDATIO [facility] UNIVERSIT - 2 2 Y OUTPATIEN HOSPITAL T HOME CRITICAL ACCESS HOSPITAL HEALTH, 2 2 HOME OUTPATIEN HEALTH T AGENCY OFFICE [address]32 [place] WILMER DE GUZMANN OUTPATIEN 2 2 MEDICAL T VISIT SERV 25 FOUNDATIO MINUTES HOME CRITICAL ACCESS [facility]OSPITAL HEALTH, 2 2 DIST OTHER HEALTH DEPT [facility] EMERGENCY 94576 [facility], 2 2 [facility] AND[facility] T VISIT CO HOS HIGH/URGE NT SEVERITY CRITICAL [facility], ACCESS 2 2 [facility] HOME [facility]ICAL [facility] HEALTH, 2 2 [facility] T AGENCY HOME CRITICAL ACC[facility]OSPITAL HEALTH, 2 2 DIST OTHER HEALTH DEPT [facility], - 2 2 [facility] OUTPATIEN [facility] T CO HOS EMERGENCY 29682 ANDRE[facility] JAVIER 2 2 CO [facility] HOSPITAL T VISIT MODERATE SEVERITY EMERGENCY [id number] [facility], DEPT 2 2 [facility] VISIT [facility] HIGH CO HOS SEVERITY& THREAT FUNCJ HOME CRITICAL ACCESS HOSPITAL HEALTH, 2 2 DIST OTHER HEALTH DEPT [facility] HOSPITAL [facility], - 2 2 [facility] OUTPATIEN [facility] T CO HOS OFFICE 97624 [facility] OUTPATIEN 2 2 [place] FAMILY CAROL T VISIT MEDICINE 25 P MINUTES OFFICE 55561 LAUSE FED LAUSE FED OUTPATIEN 2 2 T NEW 20 MINUTES HOME CRITICAL ACCESS HOSPITAL HEALTH, 2 2 DIST OTHER HEALTH DEPT [facility] HOME [facility], 2 2 DIST OTHER HEALTH DEPT [facility] HOSPITAL [facility], - 2 2 [facility] IN[facility]IENT [facility]OSPITAL [facility], - 2 2 [facility] OUTPATIEN [facility] T CO HOS EMERGENCY 09240 ANDREY HERRERA 2 2 CO [facility] HOSPITAL T VISIT MODERATE SEVERITY EMERGENCY 22294 [facility], 2 2 [facility] ANDREY T VISIT CO HOS HIGH/URGE NT SEVERITY OFFICE 50494 [place] LESLEYEAN OUTPATIEN 2 2 MEDICAL XOCHITL T NEW 60 SERV MINUTES [facility] UNIVERSIT - [address] [facility] UNIVERSIT - 2 2 Y [facility] T OFFICE 82076 [facility] 2 2 [place] FAMILY T VISIT MEDICINE 15 P MINUTES [facility] UNIVERSIT - 2 2 Y [facility] T OFFICE 79958 [facility] 2 2 NURSE ELVAE T NEW 45 PRACTITIO MINUTES [facility], - 1 1 [facility] IN[facility]IENT [facility] ANDREY - 1 1 [facility] T OFFICE [address]31 [place] HERBERT KRI [facility] 1 1 MEDICAL T VISIT SERV [facility] - 1 1 Y [facility]IENT [facility] AND[facility] - 0 0 [facility] UNIVERSIT - 0 0 Y [facility] T OFFICE 78568 [facility] 0 0 [place] [facility] T VIS[facility] MEDICINE 15 P MINUTES HOSPITAL UNIVERSIT - 0 0 Y [facility] T OFFICE 84427 [facility] OUTPATIEN 0 0 MARGARITA T VISIT 15 MINUTES OFFICE 13546 [facility] OUTPATIEN 0 0 [place] T VISIT 15 MINUTES OFFICE 81765 [facility] OUTPATIEN 0 0 MARGARITA T VISIT 15 MINUTES [facility] UNIVERSIT - 0 0 Y [facility] T
--- OUTSIDE RECORDS SUMMARY | 2017-09-02 14:57 | External Medical Summary Rpt ---
Author Author JACQUELYN Ada, JACQUELYN [employer] Organization [employer] Address Unknown Phone Unavailable Results Creatinine [Mass/volume] in Urine Observa Value Referen Units Interpr Notes Date tion ce etation Range Creatinin 20 - 320 mg/dL Normal No Sep 6 e informati 2017 2:15 [Mass/vol on in PM ume] in source Urine data Protein [Presence] in Urine Observa Value Referen Units Interpr Notes Date tion ce etation Range Protein 381.2 0.0 - mg/dL High No Sep 6 11.9 informa 2017 [Presen tion in 2:15 PM ce] in source Urine data Renal function 2000 panel in Serum or Plasma Observa Value Referen Units Interpr Notes Date tion ce etation Range Albumin 3.4 - 5.0 gm/dL Normal No Sep 6 [Mass/vol informati 2017 2:15 ume] in on in PM Serum or source Plasma data Urea 7 - 18 mg/dL High No Sep 6 nitrogen informati 2017 2:15 [Mass/vol on in PM ume] in source Serum or data Plasma Calcium 8.5 - mg/dL Low No Sep 6 [Mass/vol 10.1 informati 2017 2:15 ume] in on in PM Serum or source Plasma data Chloride 98 - 107 mmoL/L Normal No Sep 6 [Moles/vo informati 2017 2:15 lume] in on in PM Serum or source Plasma data Carbon 21.0 - mmoL/L Normal No Sep 6 dioxide, 32.0 informati 2017 2:15 total on in PM [Moles/vo source lume] in data Serum or Plasma Creatinin 0.55 - mg/dL High No Sep 6 e 1.02 informati 2017 2:15 [Mass/vol on in PM ume] in source Serum or data Plasma Estimated 59- ML/MIN Low REFERENCE Sep 6 RANGE: 2017 2:15 glomerula >60 PM r ML/MIN/1. filtratio 73 SQUARE n rate METERSIf (GF this patient is -A merican, then multiply theresult by 1.210. Glucose 74 - 106 mg/dL Normal No Sep 6 [Mass/vol inform2016 2:15 ume] in on in PM Serum or source Plasma data Potassium 3.5 - 5.1 mmoL/L Normal No Sep 6 2016 2:15 [Moles/vo on in PM lume] in source Serum or data Plasma Sodium 136 - 145 mmoL/L Normal No Sep 6 [Moles/vo inform2016 2:15 lume] in on in PM Serum or source Plasma data Phosphate 2.4 - 4.9 mg/dL Normal No Sep 6 2016 2:15 [Moles/vo on in PM lume] in source Unspecifi data ed specimen CBC W Auto Differential panel in Blood Observa Value Referen Units Interpr Notes Date tion ce etation Range Basophils 0 - 0.2 K/MM3 Normal No Sep 6 2016 2:15 [#/volume on in PM ] in source Blood by data Automated count Basophils 0.1 - 2.0 % Normal No Sep 6 /100 2016 2:15 leukocyte on in PM s in source Blood by data Automated count Eosinophi 0.0 - 0.4 K/mm3 Normal No Sep 6 ls 2016 2:15 [#/volume on in PM ] in source Blood by data Automated count Eosinophi 0.1 - % Normal No Sep 6 ls/100 12.0 inform2016 2:15 leukocyte on in PM s in source Blood by data Automated count Granulocy 1.8 - 7.8 K/mm3 Normal No Sep 6 michael 2016 2:15 [#/volume on in PM ] in source Blood by data Automated count Granulocy 37.0 - % Normal No Sep 6 michael/100 80.0 informati 2016 2:15 leukocyte on in PM s in source Blood by data Automated count Hematocri 37.0 - % Low No Sep 6 t [Volume 47.0 2016 2:15 on in PM Fraction] source of Blood data Hemoglobi 12.2 - g/dL Low No Sep 6 n 16.2 inform2016 2:15 [Mass/vol on in PM ume] in source Blood data Lymphocyt 0.7 - 4.5 K/mm3 Normal No Sep 6 es 2016 2:15 [#/volume on in PM ] in source Unspecifi data ed specimen by Automated count Lymphocyt 10 - 50.0 % Normal No Sep 6 es informati 2016 2:15 [#/volume on in PM ] in source Unspecifi data ed specimen by Automated count Erythrocy 27 - 31.2 pg Normal No Sep 6 te mean informati 2016 2:15 corpuscul on in PM ar source hemoglobi data n [Entitic mass] Erythrocy 31.8 - g/dl Normal No Sep 6 te mean 35.4 informati 2016 2:15 corpuscul on in PM ar source hemoglobi data n concentra tion [Mass/vol ume] by Automated count Erythrocy 82.2 - fl Normal No Sep 6 te mean 97.8 informati 2016 2:15 corpuscul on in PM ar volume source [Entitic data volume] by Automated count Monocytes 0.1 - 1.0 K/mm3 Normal No Sep 6 informati 2016 2:15 [#/volume on in PM ] in source Blood by data Automated count Monocytes 1.7 - 9.3 % Normal No Sep 6 /100 informati 2016 2:15 leukocyte on in PM s in source Blood by data Automated count Platelet 7.4 - fl Low No Sep 6 mean 10.4 informati 2016 2:15 volume on in PM [Entitic source volume] data in Blood by Automated count Platelets 142 - 424 K/mm3 Normal No Sep 6 2016 2:15 [#/volume on in PM ] in source Blood data Erythrocy 4.2 - 5.4 M/mm3 Low No Sep 6 michael informati 2016 2:15 [#/volume on in PM ] in source Amniotic data fluid Erythrocy 11.5 - % Normal No Sep 6 te 17.5 informati 2016 2:15 distribut on in PM ion width source [Entitic data volume] by Automated count Leukocyte 4.8 - K/MM3 Normal No Sep 6 s 10.8 informati 2016 2:15 [#/volume on in PM ] in source Blood data Urinalysis dipstick W Reflex Microscopic panel in Urine Observa Value Referen Units Interpr Notes Date tion ce etation Range Appeara SL CLEAR No No No Sep 6 nce of CLOUDY informa informa informa 2017 Urine tion in tion in tion in 2:15 PM source source source data data data Bacteri 4+ O No No No Sep 6 a informa informa informa 2017 [Presen tion in tion in tion in 2:15 PM ce] in source source source Urine data data data sedimen t by Light microsc opy Bilirub NEGATIV NEG No No No Sep 6 in E informa informa informa 2017 [Presen tion in tion in tion in 2:15 PM ce] in source source source Urine data data data by Test strip Erythro 1+ NEG No Abnorma No Sep 6 cytes informa l informa 2017 [Presen tion in tion in 2:15 PM ce] in source source Urine data data Color YELLOW YELLOW No No No Sep 6 of informa informa informa 2017 Urine tion in tion in tion in 2:15 PM source source source data data data Glucose NEG No No No Sep 6 [Mass/vol informati informati informati 2017 2:15 ume] in on in on in on in PM Urine by source source source Test data data data strip Ketones NEGATIV NEG mg/dL No No Sep 6 E informa informa 2017 [Presen tion in tion in 2:15 PM ce] in source source Urine data data by Automat ed test strip Mucus 1+ NEG No Abnorma No Sep 6 [Presen informa l informa 2016 ce] in tion in tion in 2:15 PM Urine source source sedimen data data t by Light microsc opy Nitrite POSITIV NEG No Abnorma No Sep 6 E informa l informa 2017 [Presen tion in tion in 2:15 PM ce] in source source Urine data data by Test strip pH of 5.0 - 8.5 No Normal No Sep 6 Urine informati informati 2017 2:15 on in on in PM source source data data Protein NEG mg/dL High No Sep 6 [Mass/vol informati 2017 2:15 ume] in on in PM Urine by source Automated data test strip Erythro OCC 0 rbc/hpf No No Sep 6 cytes informa informa 2017 [Presen tion in tion in 2:15 PM ce] in source source Urine data data sedimen t by Light microsc opy Epithel 5-10 NONE #/HPF No No Sep 6 ial informa informa 2017 cells.r tion in tion in 2:15 PM enal source source [Presen data data ce] in Urine sedimen t by Light microsc opy Specific 1.005 - No Normal No Sep 6 gravity 1.030 informati informati 2017 2:15 of Urine on in on in PM source source data data Epithel TNTC 0 - 5 #/hpf No No Sep 6 ial informa informa 2017 cells.s tion in tion in 2:15 PM quamous source source data data [Presen ce] in Urine sedimen t by Microsc opy high power field Urobili 0.2 NEG E.U./dL No No Sep 6 nogen informa informa 2017 [Presen tion in tion in 2:15 PM ce] in source source Urine data data by Test strip Leukocy [50 O wbc/hpf No No Sep 6 michael wbc/hpf informa informa 2017 [#/volu ; 100 tion in tion in 2:15 PM me] in wbc/hpf source source Urine ] data data Urinalysis dipstick W Reflex Microscopic panel in Urine Observa Value Referen Units Interpr Notes Date tion ce etation Range Appeara SL CLEAR No No No Sep 6 nce of CLOUDY informa informa informa 2017 Urine tion in tion in tion in 2:15 PM source source source data data data Bilirub NEGATIV NEG No No No Sep 6 in E informa informa informa 2016 [Presen tion in tion in tion in 2:15 PM ce] in source source source Urine data data data by Test strip Erythro 1+ NEG No Abnorma No Sep 6 cytes informa l informa 2016 [Presen tion in tion in 2:15 PM ce] in source source Urine data data Color YELLOW YELLOW No No No Sep 6 of informa informa informa 2017 Urine tion in tion in tion in 2:15 PM source source source data data data Glucose NEG No No No Sep 6 [Mass/vol informati informati informati 2017 2:15 ume] in on in on in on in PM Urine by source source source Test data data data strip Ketones NEGATIV NEG mg/dL No No Sep 6 E informa informa 2017 [Presen tion in tion in 2:15 PM ce] in source source Urine data data by Automat ed test strip Mucus 1+ NEG No Abnorma No Sep 6 [Presen informa l informa 2016 ce] in tion in tion in 2:15 PM Urine source source sedimen data data t by Light microsc opy Nitrite POSITIV NEG No Abnorma No Sep 6 E informa l informa 2016 [Presen tion in tion in 2:15 PM ce] in source source Urine data data by Test strip pH of 5.0 - 8.5 No Normal No Sep 6 Urine informati informati 2017 2:15 on in on in PM source source data data Protein NEG mg/dL High No Sep 6 [Mass/vol informati 2017 2:15 ume] in on in PM Urine by source Automated data test strip Specific 1.005 - No Normal No Sep 6 gravity 1.030 informati informati 2017 2:15 of Urine on in on in PM source source data data Urobili 0.2 NEG E.U./dL No No Sep 6 nogen informa informa 2016 [Presen tion in tion in 2:15 PM ce] in source source Urine data data by Test strip
--- OUTSIDE RECORDS SUMMARY | 2017-09-02 14:57 | External Medical Summary Rpt | CCD ---
Author Author , JACQUELYN VALLADARES Address Unknown Phone [email or web address] Immunization Name Date Rout CVX Reac Dose Comm Prov Is Faci e tion ent ider Refu lity Give sed n Infl 09-1 Intr 0.5 Hist PD20 No PD20 uenz 2-20 amus mL oric 256 256 a 17 cula al Quad r Info rmat W/Pr ion es - Sour ce Unsp ecif ied
--- OUTSIDE RECORDS SUMMARY | 2017-09-02 14:57 | External Medical Summary Rpt ---
Author Author JACQUELYN Ada, JACQUELYN [employer] Organization [employer] Address Unknown Phone Unavailable [...]
--- OUTSIDE RECORDS SUMMARY | 2017-09-02 14:57 | External Medical Summary Rpt | CCD ---
Author Author , JACQUELYN VALLADARES Address Unknown Phone [email or web address] Immunization Name Date Rout CVX Reac Dose Comm Prov Is Faci e tion ent ider Refu lity Give sed n Infl 09-1 Intr 0.5 Hist PD20 No PD20 uenz 2-20 amus mL oric 256 256 a 17 cula al Quad r Info rmat W/Pr ion es - Sour ce Unsp ecif ied
--- NOTE | 2017-09-02 15:15 | HISTORY AND PHYSICAL REPORT ---
Demographics: Admit date: 09/02/17 Chief complaint: Weakness PRIMARY DIAGNOSIS: ataxia and orthostasis Allergies: Coded Allergies: Zheng Inhibitors (Severe, E-[id number]-VXLK/THROAT 10/02/15) Iodinated Contrast- Oral and IV Dye (IODINATED CONTRAST MEDIA - IV DYE) (Severe, S-DIFF. 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 She was found to be weak and orthostatic. Admitted to hospital for further diagnostic testing. She denies fevers, vomiting, chest pain or dyspnea issues. She does report 3 days of recent diarrhea and nonbloody mucousy stool. Past medical history: Family HX Family Hx Insignificant No Immunization HX DT/Tetanus UNKNOWN General CAD? No Angina: No NC: No Hypertension? No Hyperlipidemia? Yes CHF? No DVT? No PE? No COPD? No Asthma? No Anemia? No GERD? No Gastric ulcers? No GI Bleed? No Hernia? No Thyroid Problems? Yes Hypothyroidism? Yes CVA? No Seizures? No Diabetes? No Renal Insuffiency? No UTI? No Stones? No BPH? No GB Disease: No Nephritic Syndrome? No Asplenia? No Hepatitis? No Sickle Cell Disease? No Arthritis? No Migraines? No Cataracts? No Glaucoma? No MRSA? No HIV? No TB? No Anxiety? No Depression? No Cancer? No Additional hx: Lupus, followed by [facility] rheumatology. History of lupus nephritis. History of chronic immunosuppressive use. Comment: Patient up-to-date with her health care maintenance. Essentially normal colonoscopy 2015.Normal DEXA scanning last year and keeps up with mammograms. Past Surgical HX Previous Surgery?Y HYSTERECTOMY LUNG--BIOPSY R ARM Current home meds: Reported Medications Montelukast Sodium (Singulair 10MG) 1 TAB PO QHS Mycophenolate Mofetil (Cellcept) 500 MG PO BID ASPIRIN (Aspirin) 81 MG PO DAILY Fluticasone Propionate (Flonase 50 Mcg Nasal [place]) 1 SPRAY NA DAILY Calcium Polycarbophil (Fibercon) 625 MG OR Q6HP PRN HEARTBURN ERGOCALCIFEROL (VITAMIN D2) (Vitamin D2) 50,000 IUNITS PO DAILY Cranberry 400 MG PO DAILY Cyanocobalamin (Vitamin B12) 500 MCG PO DAILY CITALOPRAM HYDROBROMIDE (Citalopram HBr) 20 MG PO DAILY Propranolol Hcl 20 MG PO BID Levothyroxine Sodium (Synthroid 0.075MG) 0.075 MG PO DAILY Sucralfate (Carafate Tab) 1 GM PO QID Valsartan Levothyroxine Sodium (Levothyroxine 0.1MG) DULOXETINE HCL (Duloxetine) Social Hx: Smoking HX Packs/day < 1 PACK Alcohol Alcohol: No Hx of Drug Use Drug Use? No Patien't marital status is single Patient's support system is fair Comment: Patient is primarily wheelchair bound in her power scooter. Somewhat socially isolated. Review of systems: Constitutional malaise, weakness. No: fever. Respiratory No: no symptoms reported. Cardiovascular edema Gastrointestinal/Abdominal No abdominal pain, No blood streaked bowels, No constipated, diarrhea, No difficulty swallowing, nausea, poor appetite, poor fluid intake, No rectal bleeding, No vomiting Genitourinary No: no symptoms reported. Musculoskeletal back pain. Neurological Yes: weakness. No: numbness, tingling, tremors. Exam: Additional information: patient is alert, oriented x3, pleasant but appears tired. Appears pale. Dry oral mucosa. Heart rate in the 120s when she tries to stand. Lungs are clear, heart rate regular without murmurs. Abdomen is soft but diffusely tender without point tenderness or masses palpable. Trace ankle edema. Very weak in her extremities but without focal deficits. Plan: Problem List 1. Diarrhea 2. Weakness Plan: Plan will be to admit to hospital for observation, labs, further diagnostic testing, therapy evaluation. Further treatment will depend on how patient responds to low-dose IV fluids and supportive care. at [id number]
--- NOTE | 2017-09-02 15:15 | HISTORY AND PHYSICAL REPORT ---
Demographics: Admit date: 09/02/17 Chief complaint: Weakness PRIMARY DIAGNOSIS: ataxia and orthostasis Allergies: Coded Allergies: Zheng Inhibitors (Severe, L-RYWEMA-PDCA/THROAT 10/02/15) Iodinated Contrast- Oral and IV Dye (IODINATED CONTRAST MEDIA - IV DYE) (Severe, S-DIFF. 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 She was found to be weak and orthostatic. Admitted to hospital for further diagnostic testing. She denies fevers, vomiting, chest pain or dyspnea issues. She does report 3 days of recent diarrhea and nonbloody mucousy stool. Past medical history: Family HX Family Hx Insignificant No Immunization HX DT/Tetanus UNKNOWN General CAD? No Angina: No AK: No Hypertension? No Hyperlipidemia? Yes CHF? No DVT? No PE? No COPD? No Asthma? No Anemia? No GERD? No Gastric ulcers? No GI Bleed? No Hernia? No Thyroid Problems? Yes Hypothyroidism? Yes CVA? No Seizures? No Diabetes? No Renal Insuffiency? No UTI? No Stones? No BPH? No GB Disease: No Nephritic Syndrome? No Asplenia? No Hepatitis? No Sickle Cell Disease? No Arthritis? No Migraines? No Cataracts? No Glaucoma? No MRSA? No HIV? No TB? No Anxiety? No Depression? No Cancer? No Additional hx: Lupus, followed by [facility] rheumatology. History of lupus nephritis. History of chronic immunosuppressive use. Comment: Patient up-to-date with her health care maintenance. Essentially normal colonoscopy 2015.Normal DEXA scanning last year and keeps up with mammograms. Past Surgical HX Previous Surgery?Y HYSTERECTOMY LUNG--BIOPSY R ARM Current home meds: Reported Medications Montelukast Sodium (Singulair 10MG) 1 TAB PO QHS Mycophenolate Mofetil (Cellcept) 500 MG PO BID ASPIRIN (Aspirin) 81 MG PO DAILY Fluticasone Propionate (Flonase 50 Mcg Nasal [place]) 1 SPRAY NA DAILY Calcium Polycarbophil (Fibercon) 625 MG OR Q6HP PRN HEARTBURN ERGOCALCIFEROL (VITAMIN D2) (Vitamin D2) 50,000 IUNITS PO DAILY Cranberry 400 MG PO DAILY Cyanocobalamin (Vitamin B12) 500 MCG PO DAILY CITALOPRAM HYDROBROMIDE (Citalopram HBr) 20 MG PO DAILY Propranolol Hcl 20 MG PO BID Levothyroxine Sodium (Synthroid 0.075MG) 0.075 MG PO DAILY Sucralfate (Carafate Tab) 1 GM PO QID Valsartan Levothyroxine Sodium (Levothyroxine 0.1MG) DULOXETINE HCL (Duloxetine) Social Hx: Smoking HX Packs/day < 1 PACK Alcohol Alcohol: No Hx of Drug Use Drug Use? No Patien't marital status is single Patient's support system is fair Comment: Patient is primarily wheelchair bound in her power scooter. Somewhat socially isolated. Review of systems: Constitutional malaise, weakness. No: fever. Respiratory No: no symptoms reported. Cardiovascular edema Gastrointestinal/Abdominal No abdominal pain, No blood streaked bowels, No constipated, diarrhea, No difficulty swallowing, nausea, poor appetite, poor fluid intake, No rectal bleeding, No vomiting Genitourinary No: no symptoms reported. Musculoskeletal back pain. Neurological Yes: weakness. No: numbness, tingling, tremors. Exam: Additional information: patient is alert, oriented x3, pleasant but appears tired. Appears pale. Dry oral mucosa. Heart rate in the 120s when she tries to stand. Lungs are clear, heart rate regular without murmurs. Abdomen is soft but diffusely tender without point tenderness or masses palpable. Trace ankle edema. Very weak in her extremities but without focal deficits. Plan: Problem List 1. Diarrhea 2. Weakness Plan: Plan will be to admit to hospital for observation, labs, further diagnostic testing, therapy evaluation. Further treatment will depend on how patient responds to low-dose IV fluids and supportive care. at [id number]
--- OUTSIDE RECORDS SUMMARY | 2017-09-02 16:44 | External Medical Summary Rpt | CCD ---
Author Author , JACQUELYN Organization JACQUELYN Address Unknown Phone Care Team Providers Care Paper Rewinder Operator Name Role Phone [employer] Unavailable Unavailable INC, [employer] Unavailable Unavailable INC, [employer] ALLRAN JR SAMIRA, ALLRAN Unavailable Unavailable JR SAMIRA ALLRAN JR SAMIRA, ALLRAN Unavailable Unavailable JR SAMIRA JAQUEZ HOL, JAQUEZ Unavailable Unavailable HOL BERNERT EJ, BERNERT Unavailable Unavailable EJ BESSON TIMOTHY, BESSON Unavailable Unavailable TIMOTHY MCKEON, MCKEON Unavailable Unavailable MCKEON ALL, MCKEON ALL Unavailable Unavailable [facility] Unavailable Unavailable [facility], [facility] TAI KRIS, TAI Unavailable Unavailable KRIS MARY MAJOR IGN, Unavailable Unavailable MARYStephanie MAJOR IGN [...] [facility] OF Unavailable Unavailable THE BLUE, [facility] ARIANE JR, ARIANE Unavailable Unavailable JR COOK LILIBETH, COOK LILIBETH Unavailable Unavailable KENNY ANTWAN, Unavailable Unavailable KENNY ANTWAN [facility] Unavailable Unavailable [facility], [facility] Unavailable Unavailable [facility], [facility] DISANTIS JEWELS, Unavailable Unavailable DISANTIS JEWELS ZIMMER FREDY, ZIMMER FREDY Unavailable Unavailable ENDEAN XOHCITL, ENDEAN Unavailable Unavailable XOCHITL EYE MAX, EYE MAX Unavailable Unavailable FALLIS YONY, FALLIS Unavailable Unavailable YONY [facility] Unavailable Unavailable SERVBLUEGRAS, FEDERATED TRANS SERVBLUEGRAS [facility] Unavailable Unavailable TRANSPORTATION SER, [facility] FEEBACK REE, FEEBACK Unavailable Unavailable REE YOVANY NICOLA, Unavailable Unavailable YOVANY NICOLA OLIVEIRA NAN, OLIVEIRA Unavailable Unavailable NAN TANESHA RHO, TANESHA Unavailable Unavailable RHO JUDAH SANTA, JUDAH SANTA Unavailable Unavailable HAGENSCHAUDREY DEE, Unavailable Unavailable HAGCHNEIDER DEE [facility] Unavailable Unavailable CARE, [facility] Unavailable Unavailable CARE, [facility] Unavailable Unavailable INC, [facility] Unavailable [facility]available HOSPITAL P, [facility] HOSPITAL P WALKER RADHA, WALKER RADHA Unavailable Unavailable [facility], Unavailable Unavailable [facility] DAVEY GWE, DAVEY Unavailable Unavailable GWE HOUSMAN KAMILA, HOUSMAN Unavailable Unavailable KAMILA [employer] Unavailable Unavailable CORPORATION, [facility] [employer] Unavailable Unavailable CORPORATION, [facility] Unavailable Unavailable CORPORATION, [employer] [facility] Unavailable Unavailable GROUP PS, [facility] Unavailable Unavailable IMAGING [facility], [facility] KERN CAR, KERN CAR [...] PEDRO MAJORS G, MAJORS G Unavailable Unavailable [facility] Unavailable Unavailable SERVICES, [facility] Unavailable Unavailable ASSOCIAT, [facility] MCKEMIE JR KAMILA, Unavailable Unavailable MCKEMIE JR KAMILA [facility], Unavailable Unavailable [facility], FOOD SERVICE COORDINATOR [facility] Unavailable Unavailable [facility], [facility] FOOD SERVICE COORDINATOR [facility] AVILES KAMILA, AVILES KAMILA Unavailable Unavailable RONY LEVY, RONY Unavailable Unavailable [facility], Unavailable Unavailable [facility] Unavailable Unavailable AMBULANCE SE, [facility] Unavailable Unavailable AMBULANCE SE, [facility] CRISTIAN CORNEJO MD Unavailable Unavailable CONSULTING SERV, CRISTIAN CORNEJO MD CONSULTING SERV CRISTIAN CORNEJO MD Unavailable Unavailable CONSULTING SRVCRISTIAN MD CONSULTING SRV [facility], Unavailable Unavailable PLLC, [facility] HODGE MAD, HODGE MAD Unavailable Unavailable SOPHIE TOD, SOPHIE TOD Unavailable Unavailable SCALF IRIS, SCALF IRIS Unavailable Unavailable RIVERO RBANT, RIVERO BRANT Unavailable Unavailable SOKAN BAB, SOKAN BAB Unavailable Unavailable [facility], Unavailable Unavailable [facility] Unavailable Unavailable EQUIPME, [facility] Unavailable Unavailable EQUIPME, [facility] SOTINGEANU CAROL, Unavailable Unavailable SOTINGEANU CAROL [facility] Unavailable Unavailable EMERGENCY PHYS, [facility], Unavailable Unavailable [facility] CARDIOLOG[facility] Unavailable Unavailable CLINIC, [facility] CLINIC YOO SCO, YOO Unavailable Unavailable [facility] Unavailable [facility], [facility] Unavailable Unavailable [facility] Unavailable Unavailable SUPPLY, [facility] Unavailable [facility]available MEDICINE , 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 UNSPECIFIED K580 IRRITABLE 07-25-2017 [facility] SYNDROME AGENCY WITH DIARRHEA M1990 UNSPECIFIED 07-25-2017 [facility] HEALTH OSTEOARTHRI AGENCY TIS UNSPECIFIED SITE N8110 CYSTOCELE 07-25-2017 [facility] UNSPECIFIED HEALTH AGENCY R159 FULL 07-25-2017 [facility] INCONTINENC HEALTH E OF FECES AGENCY R3981 FUNCTIONAL 07-25-2017 [facility] URINARY HEALTH INCONTINENC AGENCY E I129 HYPERTENSIV 07-16-2017 [facility] [place] SERV W/STAGE 1-4 [facility] EMERGENCY DEPARTMENT CKD OR UNS CKD M329 SYSTEMIC 07-16-2017 [place] [facility] LUPUS SERV ERYTHEMATOS [facility] EMERGENCY DEPART[facility] US UNSPECIFIED M810 AGE-RELATED 07-16-2017 [facility] OSTEOPOROSI [facility] EMERGENCY DEPARTMENT S W/O CURRNT PATH FX N039 CHRONIC 07-16-2017 [facility] NEPHRITIC SERV SYND W/UNS FOUNDATION MORPHOLOGIC CHANGES N183 CHRONIC 07-16-2017 [facility] K[facility] [facility] DISEASE FOUNDATION STAGE 3 MODERATE N250 RENAL 07-16-2017 [place] [facility] OSTEODYSTRO SERV PHY FOUNDATION R809 PROTEINURIA 07-16-2017 [place] [facility] UNSPECIFIED FOUNDATION R8290 UNSPECIFIED 07-16-2017 [facility]AL [facility] FINDINGS IN INC URINE M069 RHEUMATOID 06-02-2017 [facility]THRIT[facility] [employer] UNSPECIFIED M3210 SYSTEMIC 06-02-2017 [facility] LUP[facility]PORATION ERYTHEMATOS US ORGAN/SYS INVLV UNS M4000 POSTURAL 06-02-2017 [employer] KYPHOSIS [facility] SITE UNSPECIFIED M549 DORSALGIA 05-29-2017 [facility] UNSPECIFIED MEDICAL IMAGING ASS R079 CHEST PAIN 05-29-2017 [facility] UNSPECIFIED MEDICAL IMAGING ASS R091 PLEURISY 05-29-2017 [facility] INC R69 ILLNESS 05-15-2017 [facility] UNSPECIFIED TRANSPORTAT ION SER N04406 UNSPECIFIED 04-30-2017 [facility] ASTIGMATISM [facility]OUNDATION BILATERAL H524 PRESBYOPIA 04-30-2017 [place] [facility] B26836 OTHER LONG 04-30-2017 [place] [facility] TERM SERV CURRENT FOUNDATION DRUG THERAPY Z961 PRESENCE OF 04-30-2017 [employer] MEDICAL SERV INTRAOCULAR FOUNDATION LENS G8929 OTHER 04-29-2017 [place] [facility] CHRONIC SERV PAIN FOUNDATION L853 XEROSIS 04-29-2017 [facility] CUTIS SERV FOUNDATION M545 LOW BACK 04-29-2017 [place] [facility] PA[facility] R52 PAIN 04-29-2017 [place] [facility] UNSPECIFIED SERV FOUNDATION R531 WEAKNESS 04-29-2017 [facility] E039 HYPOTHYROID 02-19-2017 [facility] ISM [facility]YSICIANS UNSPECIFIED LA M129 ARTHROPATHY 02-19-2017 [facility] UNSPECIFIED LA M3214 GLOMERULAR 02-19-2017 [facility] DISEASE IN PHYSICIANS SYS LUPUS LA ERYTHEMATOS US N390 URINARY 10-28-2016 [place] [facility] TRACT SERV INFECTION FOUNDATION SITE NOT SPECIFIED [id number] NONDSPL FX 10-16-2016 [facility] 4TH MEDICAL METATARSAL IMAGING ASS RT FT SUBSQT FX RTN [id number] UNS 10-16-2016 [facility] PHYSICIANS FOOT GROUP SUBSQT ENC FX ROUTINE HEAL [id number] DISPLACED 09-24-2016 [facility] FX 3RD TECHNOLOGIE METATARSAL S INC RT FT INIT CLOS FX [id number] NONDSPL FX 09-24-2016 [facility] 3RD [facility] METATARSAL INC RT FT INIT ENC CLOS FX [id number] DISPLACED 09-24-2016 [facility] FX 4TH TECHNOLOGIE METATARSAL S INC RT FT INIT CLOS FX [id number] NONDSPL FX 09-24-2016 [facility] 4TH [facility] METATARSAL INC RT FT INIT ENC CLOS FX [id number] NONDSPL FX 09-04-2016 [facility] 3RD MEDICAL METATARSAL IMAGING ASS RT FT SUBSQT FX RTN C18499 PAIN IN 08-26-2016 [facility] RIGHT FOOT MEDICAL IMAGING ASS Z1231 ENCOUNTER 08-20-2016 [facility] SCREENING MEDICAL MAMMO MALIG IMAGING ASS NEOPLASM BREAST K449 DIAPHRAGMAT 07-17-2016 [facility] [place] IC HERNIA RADIOLOGY W/O OBSTRUCTION OR GANGRENE R197 DIARRHEA 07-17-2016 [facility] UNSPEC[facility]IED N EMERGENCY PHYS M359 SYSTEMIC 04-30-2016 [place] [facility] INVOLVEMENT SERV CONNECTIVE FOUNDATION TISSUE UNS Z5181 ENCOUNTER 04-30-2016 [facility] FOR SERV THERAPEUTIC FOUNDATION DRUG LEVEL MONITORING B351 TINEA 04-16-2016 [facility] YONY UNGUIUM A61794 PAIN IN 04-16-2016 [facility] YONY LEFT FOOT H109 UNSPECIFIED 04-03-2016 [facility] [place] CONJUNCTIVI INTERNAL TIS MEDI L930 DISCOID 02-21-2016 [facility] L[facility]US PHYSICIANS ERYTHEMATOS LA US J069 ACUTE UPPER 01-24-2016 [facility] RESPIRATORY INTERNAL INFECTION MEDI UNSPECIFIED A499 BACTERIAL 01-18-2016 [place] [facility] INFECTION SERV UNSPECIFIED FOUNDATION K219 GASTRO-ESOP 12-20-2015 [facility] H REFLUX ANESTH OF DISEASE THE BLUE WITHOUT ESOPHAGITIS M2570 OSTEOPHYTE 12-07-2015 [facility] YONY UNSPECIFIED JOINT R799 ABNORMAL 11-27-2015 [facility] FINDING OF [facility] BLOOD INC CHEMISTRY UNSPECIFIED R0609 OTHER FORMS 11-21-2015 [facility] OF DYSPNEA MAURY INTERNAL MED K210 GASTRO-ESOP 10-31-2015 [place] [facility] HAGEAL SERV REFLUX FOUNDATION DISEASE W/ ESOPHAGITIS R1310 DYSPHAGIA 10-11-2015 COMMUN[facility] UNSPECIFIED ANESTH OF THE BLUE E860 DEHYDRATION 10-02-2015 [facility] R112 NAUSEA WITH 10-02-2015 [facility] VOMITING PH[facility]ICIANS, UNSPECIFIED PLLC K589 IRRITABLE 09-18-2015 [facility] SYNDROME GROUP WITHOUT DIARRHEA M8580 OTH SPEC 08-30-2015 [facility] D/O BONE PHYSICIANS DENSITY LA STRUCTURE UNS SITE Z23 ENCOUNTER 08-29-2015 [facility] [place]LEY IMMUNIZATIO INTERNAL N MED R109 UNSPECIFIED 08-24-2015 [facility] ABDOMINAL MEDICAL PAIN IMAGING ASS R9431 ABNORMAL 08-16-2015 [facility] P N959 UNSPECIFIED 08-15-2015 [place] [facility] INC PERIMENOPAU SYDNI DISORDER R74882 ENCOUNTER 08-15-2015 [facility] FOR MEDICAL SCREENING IMAGING ASS FOR OSTEOPOROSI S Z780 ASYMPTOMATI 08-15-2015 [facility] C MEDICAL MENOPAUSAL IMAGING ASS STATE Z803 FAMILY 08-15-2015 [facility] HISTORY OF MEDICAL MALIGNANT IMAGING ASS NEOPLASM OF BREAST 3829 UNSPECIFIED 08-07-2015 [facility] OTITIS [facility] MEDIA INTERNAL MEDI 02618 ESOPHAGEAL 08-07-2015 [facility] REFLUX VALLEY INTERNAL MEDI 5853 CHRONIC 07-28-[address] [place] [address] [facility] DISEASE INC STAGE III (MODERATE) 5990 URINARY 07-28-[address] [place] [address] [facility] INFECTION INC SITE NOT SPECIFIED 98790 07-28-2015 [facility] ION SER 5641 IRRITABLE 07-25-2015 [facility] SYNDROME AGENCY 01814 UNS PROLAPS 07-25-2015 [facility] W/O MENTION AGENCY UTERN PROLAPS 66352 UNSPECIFIED 07-25-2015 [facility] ARTHROPATHY AGENCY SITE UNSPECIFIED 7242 LUMBAGO 07-25-2015 [facility] INTERNAL MEDI 81028 FULL 07-25-2015 [facility] INCONTINENC HEALTH E OF FECES AGENCY 24238 UNSPECIFIED 07-25-2015 [facility] URINARY HEALTH INCONTINENC AGENCY E V7610 UNSPECIFIED 07-25-2015 [facility] [place] SCREENING INTERNAL MEDI V8281 SPECIAL 07-25-2015 [facility] SCREENING VALLEY FOR INTERNAL OSTEOPOROSI MEDI S 7100 SYSTEMIC 07-11-2015 [facility] DEPT ERYTHEMATOS 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 [address] OSTEOARTHRO 07-11-2015 [facility] UNSPEC HEALTH DEPT WHETHER 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 TRAINERS GEN/LOC UNSPEC SITE 2449 UNSPECIFIED 05-31-2015 [facility] [place] 20227 OTHER 04-25-2015 [place] [facility] CHRONIC SERV PAIN FOUNDATION 97761 UNSPECIFIED 04-19-2015 [facility] 2452 SYNCOPE AND 04-19-2015 [place] [address] NAUSEA 04-19-2015 [place] [facility] [place] [address] DIAB W/O 03-30-2015 [facility] COMP TYPE STATES II/UNS NOT MEDICAL STATED SUPPLY UNCNTRL 7140 RHEUMATOID 03-01-2015 [place] [address] UNSPECIFIED 02-22-2015 [facility] ARTHROPATHY INTERNAL MULTIPLE MED SITES 79673 KYPHOSIS 02-06-2015 [facility] igobubble [facility] POSTURAL 12544 HTN CKD UNS 01-09-2015 [place] [facility] W/CKD SERV STAGE I FOUNDATION THRU STAGE IV/UNS 5829 CHRONIC GLN 01-09-2015 [facility] W/UNSPEC SERV PATHOLOGICA FOUNDATION L LESION KIDNEY 4659 ACUTE URIS 11-29-2014 [place] [facility] OF SERV UNSPECIFIED FOUNDATION SITE 1101 DERMATOPHYT 10-12-2014 [facility] FED OSIS OF NAIL 7038 OTHER 10-12-2014 [facility] FED SPECIFIED DISEASE OF NAIL 7295 PAIN IN 10-12-2014 [facility] FED SOFT TISSUES OF LIMB 34687 OBSTRUCTIVE 09-16-2014 [facility] APNEA MEDICAL EQUIPME 45162 OTHER 09-16-2014 [facility] DYSPNEA AND HOME MEDICAL RESPIRATORY EQUIPME ABNORMALITI ES 4011 ESSENTIAL 08-15-2014 [facility] HYPERTENSIO SERV N, BENIGN FOUNDATION 7910 PROTEINURIA 08-15-2014 [place] [facility] FOUNDATION 7919 OTHER 08-15-2014 [facility] NONSPECIFIC [facility] FINDING INC EXAMINATION OF URINE 94631 DYSPHAGIA 08-11-2014 [facility] UNSPECIFIED MEM HOSP INC 70564 AFTER-CATAR 07-28-2014 [facility] [facility] VISION 17534 NEPHRITIS&N 05-31-2014 [place] [facility] EPHROPATHY- SERV OTH SPEC FOUNDATIO PATH LES DZ CE 7813 LACK OF 03-25-2014 [facility] COORDINATIO HOME N MEDICAL EQUIPME 02495 ANEMIA OF 01-20-2014 [facility] OTHER SERV CHRONIC FOUNDATIO DISEASE 2724 OTHER AND 12-07-2013 [facility] UNSPECIFIED VALLEY INTERNAL HYPERLIPIDE MED BRIDGETTE 3814 NONSUPPRATV 12-07-2013 [facility] OTITIS [facility]LEY MEDIA NOT INTERNAL SPEC MED ACUT/CHRON 4019 UNSPECIFIED 12-07-2013 [facility] ESSENTIAL VALLEY HYPERTENSIO INTERNAL N MED 4720 CHRONIC 12-07-2013 [facility] RHINITIS VALLEY INTERNAL MED 7851 PALPITATION 10-20-2013 [facility], S [place]OD [place] 33093 HYPERPARATH 10-13-2013 [facility], YROIDISM FOOD SERVICE COORDINATOR UNSPECIFIED [facility] 2689 UNSPECIFIED 10-13-2013 [facility], VITAMIN D FOOD SERVICE COORDINATOR [place] 46206 ANEMIA IN 10-13-2013 [facility], CHRONIC FOOD SERVICE COORDINATOR KIDNEY [facility] DISEASE HOS 3384 CHRONIC 09-27-2013 [facility] PAIN [facility] SYNDROME FOUNDATIO 7226 DEGENERATIO 09-27-2013 [place] [facility] N SERV INTERVERTEB FOUNDATIO RAL DISC SITE UNSPEC 98605 OTHER 06-30-2013 [facility], ABNORMAL FOOD SERVICE COORDINATOR FINDING [facility] RADIOLOGICA HOS L EXAM BREAST 47002 LUMP OR 06-25-2013 [place] [facility] IN RADIOLOGY BREAST ASSOCIAT 1103 DERMATOPHYT 06-07-2013 [facility] OSIS OF MAURY GROIN AND INTERNAL PERIANAL MED AREA 4555 EXTERNAL 05-05-2013 [facility] JR HEMORRHOIDS SAMIRA WITH OTHER COMPLICATIO N 2722 MIXED 05-04-2013 CRISTIAN CORNEJO HYPERLIPIDE BRIDGETTE CONSULTING SERV 03537 CORONARY 05-04-2013 CRISTIAN HAYNES MD OSIS [place] CONSULTING CORONARY SERV ARTERY V7281 PRE-OPERATI 05-04-2013 CRISTIAN BARAJAS MD CARDIOVASCU CONSULTING LAR SERV EXAMINATION 95335 DYSFNCT 04-23-2013 [facility] W/SLEEP HOSPITAL STGES/AROUS AL FRM SLEEP 74556 HYPOXEMIA 04-23-2013 [facility] V8533 BODY MASS 04-23-2013 [id number] AD[facility] 5859 CHRONIC 04-19-2013 [facility], KIDNEY FOOD SERVICE COORDINATOR DISEASE [facility]ER UNSPECIFIED HOS 88016 UNSPECIFIED 04-16-2013 [facility] OSTEOPOROSI S 29577 CHEST PAIN 04-16-2013 [facility] UNSPECIFIED CARDIOLOGY CLINIC 4160 PRIMARY 04-14-2013 [facility] HYPERTENSIO HOSPITAL N 18743 PRECORDIAL 04-14-2013 [facility] 54839 OTHER 04-14-2013 [facility] [place] NONSPECIFIC RADIOLOGY ABNORMAL FINDING OF LUNG FIELD 01811 SHORTNESS 03-24-2013 [facility] 7823 EDEMA 03-09-2013 CRISTIAN [place] [address]51 OTHER CHEST 03-01-2013 [facility] PAIN MAURY INTERNAL MED 17227 OBESITY, 02-27-2013 [facility] UNSPECIFIED EMERGENCY SERVICES 41531 HTN [facility] 02-[facility]-2013 [facility] STAGE I-IV/UNS 4556 UNSPEC 02-26-2013 [place] [facility]EM[facility] ANESTHESIA WITHOUT GROUP PS MENTION COMPLICATIO N 4558 UNSPECIFIED 02-26-2013 [facility] WITH OTHER COMPLICATIO N V641 SURG/OTH 02-26-2013 [facility] BECAUSE CONTRAINDIC ATION 4550 INTERNAL 02-10-2013 [place] JR HEMORRHOIDS SAMIRA WITHOUT MENTION COMP 485 BRONCHOPNEU 01-19-2013 [facility] [place] ORGANISM INTERNAL UNSPECIFIED MED 01997 OTHER 01-19-2013 [facility] [place] FATIGUE INTERNAL MED 4293 CARDIOMEGAL 01-18-2013 [facility] Y RADIOLOGY ASSOCIAT 17916 OTHER 01-18-2013 [facility] DISEASES OF RADIOLOGY LUNG NOT ASSOCIAT ELSEWHERE CLASSIFIED 6100 SOLITARY 01-13-2013 [facility], CYST OF FOOD SERVICE COORDINATOR [place] 60971 UNSPECIFIED 01-06-2013 [facility], ABNORMAL FOOD SERVICE COORDINATOR [place] 50243 DYSPHAGIA 12-09-2012 [facility], DUE TO FOOD SERVICE COORDINATOR CEREBROVASC [facility] CO ULAR HOS DISEASE 5533 DIAPHRAGMAT 12-09-2012 [facility], EDUARD W/O FOOD SERVICE COORDINATOR MENTION [facility] CO OBSTRUCTION HOS /GANGREN 15268 OTHER 12-08-2012 [facility] SPECIFIED RADIOLOGY DISORDERS ASSOCIAT OF BREAST V1589 OTH SPEC 12-08-2012 [facility], PERS HX FOOD SERVICE COORDINATOR PRESENTING [facility] CO HAZARDS HOS HEALTH OTH V163 FAMILY 12-08-2012 [facility], HISTORY OF FOOD SERVICE COORDINATOR MALIGNANT [facility] CO NEOPLASM OF HOS BREAST V7611 SCREENING 12-08-2012 [facility], MAMMOGRAM FOOD SERVICE COORDINATOR FOR [facility] CO HIGH-RISK HOS PATIENT V7612 OTHER 12-08-2012 [facility] SCREENING RADIOLOGY MAMMOGRAM ASSOCIAT 7213 LUMBOSACRAL 12-01-2012 [facility] SPONDYLOSIS WITHOUT MYELOPATHY 83604 DISPLCMT 12-01-2012 [facility] LUMBAR SERV INTERVERT FOUNDATIO DISC W/O MYELOPATHY 79540 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 [facility] OSACRAL INTERVERTEB RAL DISC 70607 OTHER&UNSPE 12-01-2012 [facility] DISORDER OF LUMBAR REGION 89679 DIVERTICULO 11-17-2012 [facility] SIS OF MEM HOS[facility] COLON INC 41313 OTHER 11-17-2012 [facility] SYMPTOMS ANESTH OF INVOLVING THE BLUE DIGESTIVE SYSTEM OTHER V160 FM HX 11-17-2012 [facility] MALIGNANT [facility]OS[facility] NEOPLASM INC GASTROINTES TINAL TRACT V7651 SPECIAL 11-17-2012 [facility] SCREENING MEM HOS[facility] FOR INC MALIGNANT NEOPLASMS COLON 01346 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 [facility] THESIS 18781 NEPHROTIC 11-05-2012 [place] [facility] SYND W/OTH SERV PATHAL LES FOUNDATIO DZ CLASS ELSW 13684 MUSCLE 11-05-2012 [place] [facility] WEAKNESS SERV (GENERALIZE FOUNDATIO D) 4553 EXTERNAL 10-19-2012 [facility]TOY[facility] JR HEMORRHOIDS SAMIRA WITHOUT MENTION COMP 7856 ENLARGEMENT 10-05-2012[place] [facility] RADIOLOGY NODES ASSOCIAT 7866 SWELLING, 10-05-2012 [facility], MASS, OR FOOD SERVICE COORDINATOR LUMP IN [facility] CHEST HOS V4576 ACQUIRED 10-05-2012 [facility], ABSENCE OF FOOD SERVICE COORDINATOR ORGAN, LUNG [facility] HOS V4589 OTHER 09-25-2012 [facility], POSTSURGICA FOOD SERVICE COORDINATOR L STATUS [facility] OTHER HOS V571 OTHER 09-24-2012 [facility], PHYSICAL FOOD SERVICE COORDINATOR THERAPY [facility] HOS 4421 ANEURYSM OF 09-21-2012 [facility] ARTERY 21987 OSTEOARTHRO 09-03-2012 [facility] UNSPEC SERV WHETHER FOUNDATIO GEN/LOC SHLDR REGION 01024 OSTEOARTHRO 09-03-2012 [facility] SIS UNSPEC SERV WHETHER FOUNDATIO GEN/LOC LOWER LEG 22154 EFFUSION OF 09-03-2012 [facility] LOWER LEG SERV JOINT FOUNDATIO 14971 PAIN IN 09-03-2012 [facility], SERV SHOULDER FOUNDATIO REGION 96275 PAIN IN 09-03-2012 [facility], SERV LOWER LEG FOUNDATIO 7249 OTHER 09-03-2012 [facility] UNSPECIFIED SERV BACK FOUNDATIO DISORDER 55355 EXOSTOSIS 09-03-2012 [facility] OF SERV UNSPECIFIED FOUNDATIO SITE 7384 ACQUIRED 09-03-2012 [facility] SPONDYLOLIS SERV THESIS FOUNDATIO 42692 DEHYDRATION 08-04-2012 [facility], FOOD SERVICE COORDINATOR [facility]OS 5589 OTH&UNSPEC 08-04-2012 [facility], NONINFECTIO FOOD SERVICE COORDINATOR US [facility] GASTROENTER HOS ITIS&COLITI S 39450 VOMITING 08-04-2012 [facility], ALONE FOOD SERVICE COORDINATOR [employer] HOS 4580 ORTHOSTATIC 06-19-2012 [facility] HOSPITAL HYPOTENSION 5849 ACUTE 06-19-2012 [facility] FAILURE UNSPECIFIED 2720 PURE 06-05-2012 [facility], HYPERCHOLES FOOD SERVICE COORDINATOR TEROLEMIA [facility] HOS 586 UNSPECIFIED 04-14-2012 [facility] RENAL [place] 55912 OTH & UNS E 04-08-2012 [facility], COLI FOOD SERVICE COORDINATOR INFECTION [facility] CLASS ELSW HOS UNS SITE 2762 ACIDOSIS 04-08-2012 [facility], FOOD SERVICE COORDINATOR [facility] 2767 HYPERPOTASS 04-08-2012 [facility], EMIA FOOD SERVICE COORDINATOR [facility] HOS 4589 UNSPECIFIED 04-07-2012 [facility] HOSPITAL HYPOTENSION 7862 COUGH 04-07-2012 [facility] 68198 ANEURYSM OF 03-23-2012 [facility] ARTERY 54849 UNSPECIFIED 02-13-2012 [facility] P 6256 FEMALE 02-12-2012 [place] [address] URGE 02-12-2012 [facility] [place] [address] URINARY 02-12-2012 [facility] [place] [address] URGENCY OF 02-12-2012 [facility] URINATION PRACTITIONE R GR 7336 TIETZES 07-10-2011 [facility], DISEASE FOOD SERVICE COORDINATOR [facility] HOS 39010 UNSPECIFIED 01-03-2011 [facility] PYELONEPHRI TIS 6826 CELLULITIS 01-03-2011 [facility] AND ABSC[facility] FAMILY OF [facility] MEDICINE P EXCEPT FOOT 6954 LUPUS 01-03-2011 [facility] ERYTHEMATOS SERV US FOUNDATIO 92282 SWELLING OF 01-03-2011 [facility] 7931 NONSPEC 01-03-2011 [facility] OTH EXAM [facility] BODY STRUCT LUNG FIELD 54326 CRAMP OF 11-06-2010 [facility] 16798 DIARRHEA 11-06-2010 [facility] HOSPITAL V5865 LONG-TERM 11-06-2010 [facility] USE OF HOSPITAL STEROIDS V5869 LONG-TERM 11-06-2010 [facility] (CURRENT) HOSPITAL USE OF OTHER MEDICATIONS V5883 ENCOUNTER 11-06-2010 [facility] FOR HOSPITAL THERAPEUTIC DRUG MONITORING 03749 NAUSEA WITH 10-02-2010 [facility] V7260 LABORATORY 10-02-2010 [place] [facility] UNSPECIFIED 4619 ACUTE 09-27-2010 [facility] SINUSITIS, FAMILY UNSPECIFIED MEDICINE P 77663 NUCLEAR 09-05-2010 [facility] S[facility]EROS[facility] 3669 UNSPECIFIED 09-04-2010 [facility] 7850 UNSPECIFIED 08-29-2010 [facility] TACHYCARDIA Medications Na ND Rx Da [...] AT 60 15 15 FA E 1 AL SA 20 LY RA 0 H MG [...] complet SerPl-m 017 mg/dL ed Cnc 14:00 CRP SerPl-mCnc (01-28-2017 14:00) CRP 0.7 0-0.9 complet SerPl-m 017 mg/dL ed Cnc 14:00 ESR Bld Qn (01-28-2017 14:00) ESR Bld 48 0-20 complet Qn 017 mm/hr ed 14:00 Creat Ur-mCnc (01-28-2017 14:00) Creat 176 complet Ur-mCnc 017 mg/dL ed 14:00 Procedures Procedure DOS Code Location Performer Comment DISPBL T4535 [facility] HOME HOME ELD/GUARD HEALTH HEALTH /PAD/UNDG AGENCY AGENCY RMNT INCONT EA CREATININ 81947 KRISSY Bolivar OTHER 7 [facility] SOURCE INC INC URNLS DIP 48115 KR[facility]SY REY 7 [facility] STICK/TAB INC INC LET REAGENT AUTO MICROSCOP Y CULTURE 47752 KRISSY REY BACTERIAL 7 [facility] INC INC QUANTTATI VE COLONY COUNT URINE COLLECTIO 98259 KRISSY REY N VENOUS [address] [facility] BLOOD INC INC VENIPUNCT URE PROTEIN 71136 KRISSY REY XCPT [address] [facility] REFRACTOM INC INC ETRY SERUM PLASMA/WH L BLD BLOOD 79196 KRISSY REY COUNT 7 [facility] COMPLETE INC INC AUTO&AUTO DIFRNTL WBC RENAL 68697 KRISSY REY FUNCTION 7 [facility] PANEL INC INC PWR E2381 H[facility] HOVEROUND PNEUMATIC 7 DRIVE CORPORATI CORPORATI WHEEL ON ON TIRE REPL ONLY EACH PWR E2382 HOVEROUND HOVEROUND TUBE 7 PNEUMATIC CORPORATI CORPORATI DRIVE ON ON WHEEL TIRE REPL EACH RADIOLOGI 97604 NEVADA MCKEON C EXAM 7 MEDICAL CHEST 2 IMAGING VIEWS ASS FRONTAL&L ATERAL NONEMERGE A0130 FEDERATED FEDERATED NCY 7 TRANS TRANSPORT TRANSPORT SERVBLUEG ATION: ATION SER NATA AKBAR DISPBL T4535 [facility] 7 HOME HOME ELD/GUARD HEALTH HEALTH /PAD/UNDG AGENCY AGENCY RMNT INCONT EA NONEMERGE A0130 FEDERATED FEDERATED NCY 7 TRANS TRANSPORT TRANSPORT SERVBLUEG ATION: ATION SER NATA SANDRA Carrasquillo VAN NONEMERGE A0130 FEDERATED FEDERATED NCY 7 TRANS TRANSPORT TRANSPORT SERVBLUEG ATION: ATION SER NATA SANDRA Carrasquillo VAN VISUAL 28872 MIN[facility] THAKKAR FIELD XM 7 MEDICAL JR UNI/BI SERV W/INTERP FOUNDATIO EXTENDED N EXAM COMPUTERI 12072 MIN[facility] THAKKAR ZED 7 MEDICAL JR OPHTHALMI SERV C IMAGING FOUNDATIO RETINA N NONEMERGE A0130 FEDERATED FEDERATED NCY 7 TRANS TRANSPORT TRANSPORT SERVBLUEG ATION: ATION SER NATA SANDRA Carrasquillo VAN DISPBL T4535 [facility] 7 HOME HOME ELD/GUARD HEALTH HEALTH /PAD/UNDG [place] [address] COMBINED COMBINED THYROID 7 PHYSICIAN PHYSICIAN STIMULAT[place] [address] COMBINED COMBINED FREE 7 PHYSICIAN PHYS[place] [address] COMBINED COMBINED TRIIODOTH 7 PHYSICIAN PHYSICIAN YRONINE S LA S LA T3 TOTAL TT3 BLOOD 45627 COMBINED COMBINED COUNT 7 PHYSICIAN PHYSICIAN COMPLETE S LA S LA AUTO&AUTO DIFRNTL WBC LIPID 69811 COMBINED COMBINED PANEL 7 PHYSICIAN PHYSICIAN S LA S LA COMPREHEN 60443 COMBINED COMBINED SIVE 7 PHYSICIAN PHYSICIAN METABOLIC S LA S LA PANEL PWR WC E2366 HOVEROUND HOVEROUND ACSS 7 BATTRY CORPORATI CORPORATI CHRGR 1 ON ON MODE W/ONLY 1 BATTRY URNLS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 TRANSPORT MTN [facility]OTH SYS ADLT SZD T4526 [facility] DISPBL 4 HOME HOME INCONT HEALTH HEALTH PROD AGENCY AGENCY UNDWEAR MED EA DISPBL T4535 [facility]/KATHIE 4 HOME HOME ELD/GUARD HEALTH HEALTH /PAD/UNDG AGENCY AGENCY RMNT INCONT EA INCONTINE T4541 [facility] NCE 4 HOME HOME PRODUCT HEALTH HEALTH DISPOSABL AGENCY AGENCY E UNDPAD LARGE EA ECHO 46494 [facility] R-T 3 Y Y 2D [facility] W/WOM-MOD E COMPL SPEC&COLR D PWR WC K0823 HOVEROUND HOVEROUND GRP 2 STD 3 CAPTAINS CORPORATI CORPORATI CHAIR PT ON ON TO &=300 LBS NONEMERG A0120 FEDERATED FEDERATED TRNSPRT: 3 MINI-BUS TRANSPORT [facility] CONTINUOU E0601 [facility] BAI S 3 HOME HOME POSITIVE MEDICAL MEDICAL AIRWAY EQUIPME EQUIPME PRESSURE DEVICE NONEMERG A0120 FEDERATED FEDERATED TRNSPRT: 3 MINI-BUS TRANSPORT TRANSPORT MTN [facility]/OT SYS EXTERNAL 49112 [employer], [employer], ECG 3 FOOD SERVICE COORDINATOR FOOD SERVICE COORDINATOR SCANNING ANDREY BALDERAS ANALYSIS CO HOS CO HOS REPORT XTRNL ECG 21948 [employer], [employer], & 48 HR 3 FOOD SERVICE COORDINATOR FOOD SERVICE COORDINATOR RECORDING ANDREY BALDERAS CO HOS CO HOS COMPREHEN 61585 [employer] INC, [employer] INC, SIVE 3 FOOD SERVICE COORDINATOR FOOD SERVICE COORDINATOR METABOLIC ANDREY BALDERAS PANEL CO HOS CO HOS NONEMERG A0120 FEDERATED FEDERATED TRNSPRT: 3 MINI-BUS TRANSPORT TRANSPORT MTN [facility]/OT SYS COMPLEMEN 19193 [employer] INC, [employer] INC, T TOTAL 3 FOOD SERVICE COORDINATOR FOOD SERVICE COORDINATOR HEMOLYTIC ANDREY BALDERAS CO HOS CO HOS BLOOD 40164 [employer], [employer], COUNT 3 FOOD SERVICE COORDINATOR FOOD SERVICE COORDINATOR COMPLETE ANDREY BALDERAS AUTO&AUTO CO HOS CO HOS DIFRNTL WBC DNA 31884 [employer], [employer], ANTIBODY 3 FOOD SERVICE COORDINATOR FOOD SERVICE COORDINATOR COEUR D'ALENE/DO ANDREY BALDERAS UBLE CO HOS CO HOS STRANDED COMPLEMEN 68942 [employer], [employer], T ANTIGEN 3 FOOD SERVICE COORDINATOR FOOD SERVICE COORDINATOR EACH ANDREY BALDERAS COMPONENT CO HOS CO HOS URINALYSI 83776 [employer] INC, [employer], S 3 FOOD SERVICE COORDINATOR FOOD SERVICE COORDINATOR QUAL/SEMI ANDREY BALDERAS QUANT CO HOS CO HOS EXCEPT IMMUNOASS AYS PROTEIN 63707 [employer], [employer], TOTAL 3 FOOD SERVICE COORDINATOR FOOD SERVICE COORDINATOR XCPT ANDREY BALDERAS REFRACTOM [place] [address] [facility] [employer], [facility] INC, PHOSPHORU 3 FOOD SERVICE COORDINATOR FOOD SERVICE COORDINATOR S ANDREY ANDREY INORGANIC CO HOS CO HOS 25 85373 [facility], [facility] INC, HYDROXY 3 FOOD SERVICE COORDINATOR FOOD SERVICE COORDINATOR INCLUDES ANDREY RIVEROOLAS FRACTIONS [place] [address] [facility] [employer], [facility] INC, PARATHORM 3 FOOD SERVICE COORDINATOR FOOD SERVICE COORDINATOR ONE ANDREY ANDREY CO HOS CO HOS URNLS DIP 35566 [facility] [employer], [facility] INC, 3 FOOD SERVICE COORDINATOR FOOD SERVICE COORDINATOR STICK/TAB ANDREY BALDERAS LET RGNT CO HOS CO HOS AUTO W/O MICROSCOP Y CREATININ 98117 [facility] [employer], [facility] INC, E OTHER 3 FOOD SERVICE COORDINATOR FOOD SERVICE COORDINATOR SOURCE ANDREY ANDREY CO HOS CO HOS TUBING A7037 [facility] USED WITH 3 HOME HOME POSITIVE MEDICAL MEDICAL AIRWAY EQUIPME EQUIPME PRESSURE DEVICE NASL A7034 [facility] INTRFCE 3 HOME HOME POS [facility] MEDICAL PRSS EQUIPME EQUIPME DEVC W/WO HEAD STRAP HOS BED E0260 [facility] BAI SEMI-ELEC 3 [...] MEDICAL MEDICAL AIRWAY EQUIPME EQUIPME PRESSURE DEVICE COMPREHEN 65194 [facility] [employer], [employer], SIVE 3 FOOD SERVICE COORDINATOR FOOD SERVICE COORDINATOR METABOLIC ANDREY HANSENS PANEL CO HOS CO HOS LIPID 13331 [facility] [employer], [employer], PANEL 3 FOOD SERVICE COORDINATOR FOOD SERVICE COORDINATOR [place]RE[place] [address] [employer], [employer], THYROID 3 FOOD SERVICE COORDINATOR FOOD SERVICE COORDINATOR STIMULATI ANDREY HANSENS NG CO HOS CO HOS HORMONE TSH SEDIMENTA 46568 [employer], [employer], TION RATE 3 FOOD SERVICE COORDINATOR FOOD SERVICE COORDINATOR RBC ANDREY BALDERAS NON-AUTOM CO HOS CO HOS ATED PWR K0823 HOVEROUND HOVEROUND GRP 2 STD 3 CAPTAINS CORPORATI CORPORATI CHAIR PT ON ON TO &=300 LBS HOS BED E0260 [facility] BAI SEMI-ELEC 3 HOME HOME W/ANY MEDICAL MEDICAL TYPE SIDE EQUIPME EQUIPME RAIL W/MATTRSS DISPBL T4535 [facility]/KATHIE 3 HOME HOME ELD/GUARD HEALTH HEALTH /PAD/UNDG AGENCY AGENCY RMNT INCONT EA ADLT SZD T4526 [facility] DISPBL 3 HOME HOME INCONT HEALTH HEALTH PROD AGENCY AGENCY UNDWEAR MED EA INCONTINE T4541 [facility] NCE 3 HOME HOME PRODUCT HEALTH HEALTH DISPOSABL AGENCY AGENCY E UNDPAD LARGE EA CONTINUOU E0601 [facility]AI S 3 [...] AIRWAY EQUIPME EQUIPME PRESSURE DEVICE US BREAST 81108 [facility] INC, [facility] INC, REAL 3 FOOD SERVICE COORDINATOR FOOD SERVICE COORDINATOR TIME ANDREY BALDERAS W/IMAGE CO HOS CO HOS DOCUMENTA TION DEBRIDEME 44116 LAUSE FED LAUSE FED NT NAIL 3 ANY METHOD 6/> PWR K0823 HOVEROUND HOVEROUND GRP 2 STD 3 CAPTAINS CORPORATI CORPORATI CHAIR PT ON ON TO &=300 LBS HOS BED E0260 [facility]AI SEMI-ELEC 3 HOME HOME W/ANY MEDICAL MEDICAL TYPE SIDE EQUIPME EQUIPME RAIL W/MATTRSS CONTINUOU E0601 [facility] BAI S 3 HOME HOME POSITIVE MEDICAL MEDICAL AIRWAY EQUIPME EQUIPME PRESSURE DEVICE MAMMOGRAP 19117 [facility] HY 3 EIDER DEE UNILATERA RADIOLOGY L ASSOCIAT US BREAST 38712 [facility] REAL 3 EIDER DEE TIME RADIOLOGY W/IMAGE ASSOCIAT DOCUMENTA TION NASL A7034 [facility] B[facility] INTRFCE 3 HOME HOME POS [facility]WAY [facility] MEDICAL PRSS EQUIPME EQUIPME DEVC W/WO HEAD STRAP RENAL 97424 [employer], FUNCTION 3 FOOD SERVICE COORDINATOR FOOD SERVICE COORDINATOR PANEL ANDREY ANDREY CO HOS CO HOS BLOOD 04724 [employer], COUNT 3 FOOD SERVICE COORDINATOR FOOD SERVICE COORDINATOR COMPLETE ANDREY ANDREY AUTO&AUTO CO HOS CO HOS DIFRNTL WBC PROTEIN 90687 [employer], TOTAL 3 FOOD SERVICE COORDINATOR FOOD SERVICE COORDINATOR XCPT ANDREY ANDREY REFRACTOM CO HOS CO HOS ETRY URINE 25 00118 [employer], HYDROXY 3 FOOD SERVICE COORDINATOR FOOD SERVICE COORDINATOR INCLUDES ANDREY RIVEROOLAS FRACTIONS CO HOS CO HOS IF PERFORMED CREATININ 16341 [employer], [employer], E OTHER 3 FOOD SERVICE COORDINATOR FOOD SERVICE COORDINATOR SOURCE ANDREY ANDREY CO HOS CO HOS PWR WC K0823 HOVEROUND HOVEROUND GRP 2 STD 3 CAPTAINS CORPORATI CORPORATI CHAIR PT ON ON TO &=300 LBS HOS BED E0260 [facility] BAI SEMI-ELEC 3 HOME HOME W/ANY MEDICAL MEDICAL TYPE SIDE EQUIPME EQUIPME RAIL W/MATTRSS CONTINUOU E0601 RICHARDSON RICHARDSON S 3 HOME HOME POSITIVE MEDICAL MEDICAL [...] DISPOSABL AGENCY AGENCY E UNDPAD LARGE EA SEDIMENTA 86250 COMBINED COMBINED TION RATE 3 PHYSICIAN PHYSICIAN [place] [address] COMBINED COMBINED THYROID 3 PHYSICIAN PHYSICIAN STIMULATI S LA S LA NG HORMONE TSH LIPID 03199 COMBINED COMBINED PANEL 3 PHYSICIAN PHYSICIAN S LA S LA BLOOD 47079 COMBINED COMBINED COUNT 3 PHYSICIAN PHYSICIAN COMPLETE S LA S LA AUTO&AUTO DIFRNTL WBC COLLECTIO 63043 [facility] N VENOUS 3 [facility] TIMOTHY BLOOD INTERNAL VENIPUNCT MED URE PWR WC K0823 HOVEROUND HOVEROUND GRP 2 STD 3 CAPTAINS CORPORATI CORPORATI CHAIR PT ON ON TO &=300 LBS POLYSOM 61336 CRISTIAN CORNEJO CORNEJO CRISTIAN 6/>YRS 3 SLEEP CONSULTIN W/CPAP G SRV 4/> ADDL IKER ATTND HOS BED E0260 [facility] SEMI-ELEC 3 HOME HOME W/ANY MEDICAL MEDICAL TYPE SIDE EQUIPME EQUIPME RAIL W/MATTRSS BASIC 61763 [employer], [employer], METABOLIC 3 FOOD SERVICE COORDINATOR FOOD SERVICE COORDINATOR PANEL ANDREY ANDREY CALCIUM CO HOS CO HOS TOTAL CREATININ 92120 [employer], [employer], E OTHER 3 FOOD SERVICE COORDINATOR FOOD SERVICE COORDINATOR SOURCE ANDREY ANDREY CO HOS CO HOS URNLS DIP 58013 [employer], [employer], 3 FOOD SERVICE COORDINATOR FOOD SERVICE COORDINATOR STICK/TAB ANDREY BALDERAS LET RGNT CO HOS CO HOS AUTO W/O MICROSCOP Y PROTEIN 73981 [employer], [employer], TOTAL 3 FOOD SERVICE COORDINATOR FOOD SERVICE COORDINATOR XCPT ANDREY ANDREY REFRACTOM CO HOS CO HOS ETRY URINE URINALYSI 13392 [employer], [employer], S 3 FOOD SERVICE COORDINATOR FOOD SERVICE COORDINATOR QUAL/SEMI ANDREY ANDREY QUANT CO HOS CO HOS EXCEPT IMMUNOASS AYS CONTINUOU E0601 [facility] BAI S 3 HOME HOME POSITIVE MEDICAL MEDICAL AIRWAY EQUIPME EQUIPME PRESSURE DEVICE POLYSOM 78416 [place] 6/>YRS 3 [facility] W/CPAP 4/> ADDL IKER ATTND BASIC 20746 [employer], [employer], METABOLIC 3 FOOD SERVICE COORDINATOR FOOD SERVICE COORDINATOR PANEL ANDREY ANDREY CALCIUM CO HOS CO HOS TOTAL INJECTION J3[address] CITRATE 0.1 MG CATH PLMT 87032 [facility] L HRT & 3 [facility] ARTS W/NJX & ANGIO IMG S&I INJECTION J2001 [address] LIDOCAINE HCL INTRAVENO US INFUS 10 MG CLOSURE C1760 [facility] DEVICE [address] [place] [address] VASCULAR INTRDUCR/ C1894 [facility] SHEATH [address] [place] [address] NOT GUID INTRACARD EP NON-LASR RADIOLOGI 07399 [facility] [place] SCALF IRIS C EXAM 3 RADIOLOGY CHEST 2 VIEWS FRONTAL&L ATERAL BLOOD 32116 [facility] COUNT 3 [facility] AUTOMATED BASIC 42151 [facility] METABOLIC 3 [facility] CALCIUM TOTAL COLLECTIO 35170 [facility] N VENOUS 3 [facility] VENIPUNCT URE PWR WC K0823 HOVEROUND HOVEROUND GRP 2 STD 3 CAPTAINS CORPORATI CORPORATI CHAIR PT ON ON TO &=300 LBS HOS BED E0260 [facility]AI SEMI-ELEC 3 HOME HOME W/ANY MEDICAL MEDICAL TYPE SIDE EQUIPME EQUIPME RAIL W/MATTRSS TUBING A7037 [facility]AI USED WITH 3 [...] USED EQUIPME EQUIPME W/POS ARWAY PRESS DEVICE CONTINUOU E0601 [facility]AI S 3 HOME HOME POSITIVE MEDICAL MEDICAL AIRWAY EQUIPME EQUIPME PRESSURE DEVICE FULL FACE A7030 [facility]AI MASK 3 HOME HOME USED MEDICAL MEDICAL W/POS EQUIPME EQUIPME ARWAY PRESS DEVICE EA HUMDIFIR E0562 [facility] HEATED 3 HOME HOME USED MEDICAL MEDICAL W/POS EQUIPME EQUIPME ARWAY PRESSURE DEVICE PULMONARY 81416 CHRISTOPHER WHITE 3 [facility] IMAGING PARTICULA TE TECHNETIU A9539 CHRISTOPHER Robertson TC-99M 3 [facility] DX UP TO 25 MCI TECHNETIU A9540 CHRISTOPHER Robertson TC-99M 3 [facility] STDY DOSE UP TO 10 MCI ECG 78662 CRISTIAN CORNEJO CORNEJO CRISTIAN ROUTINE 3 MD ECG CONSULTIN W/LEAST G SRV 12 LDS W/I&R POLYSOM 02660 CRISTIAN CORNEJO CORNEJO CRISTIAN 6/>YRS 3 MD SLEEP 4/> CONSULTIN ADDL G SRV IKER ATTND POLYSOM 18439 CHRISTOPHER WHITE 6/>YRS 3 [facility] SLEEP 4/> [facility] ADDL IKER ATTND ECHO 61150 CRISTIAN CORNEJO CORNEJO CRISTIAN TTHRC R-T 3 2D CONSULTIN W/WOM-MOD G SRV E COMPL SPEC&COLR D DUP-SCAN 33639 CRISTIAN CORNEJO CORNEJO CRISTIAN XTR VEINS 3 COMPLETE CONSULTIN G SRV BILATERAL STUDY MYOCARDIA 31140 EILEEN Bran SPECT 3 MEDICAL ANTWAN SINGLE IMAGING STUDY AT ASS REST OR STRESS INJECTION J2785 KRISSY REY 3 [facility] HOSP REGADENOS INC INC ON 0.1 MG CV STRS 07760 [facility] TST 3 PHYSICIAN XERS&/OR S GROUP RX CONT ECG W/O I&R CV STRS 46179 KRISSY REY TST 3 [facility] HOSP XERS&/OR INC INC RX CONT ECG TRCG ONLY MYOCARDIA 92841 KRISSY REY L SPECT 3 [facility] HOSP MULTIPLE INC INC STUDIES CV STRS 87721 KRISSY CORBIN TST 3 [facility] RX CONT P ECG I&R ONLY TECHNETIU A9500 KRISSY REY M TC-99M 3 [facility] HOSP SESTAMIBI INC INC DX PER STUDY DOSE OBSERVATI 79977 NAV[facility] MATOS ON CARE 3 EMERGENCY [facility] DISCHARGE SERVICES MANAGEMEN T HOS BED E0260 [facility] BAI SEMI-ELEC 3 HOME HOME W/ANY MEDICAL MEDICAL TYPE SIDE EQUIPME EQUIPME RAIL W/MATTRSS BLOOD 91096 CHRISTOPHER WHITE COUNT 3 [facility] AUTOMATED ECG 81833 NAVID MATOS ROUTINE 3 EMERGENCY KAMILA ECG SERVICES W/LEAST 12 LDS I&R ONLY ECG 73344 CHRISTOPHER WHITE ROUTINE 3 [facility] HOSPITAL W/LEAST 12 LDS TRCG ONLY W/O I&R LIPID 99211 CHRISTOPHER WHITE PANEL 3 [facility] PWR WC K0823 HOVEROUND HOVEROUND GRP 2 STD 3 CAPTAINS CORPORATI CORPORATI CHAIR PT ON ON TO &=300 LBS BASIC 31836 CHRISTOPHER HARRELLJAVONELVI METABOLIC 3 [facility] CALCIUM TOTAL COLLECTIO 26526 CHRISTOPHER WHITE N VENOUS 3 [facility] [place] [address] [facility] WHITE TROPONIN 3 [facility] KETAN COLLECTIO 02405 CHRISTOPHER WHITE N VENOUS [address] [place] [address] [place] [address] CHRISTOPHER WHITE TROPONIN 3 [facility] G0378 CHRISTOPHER WHITE OBSERVATI [address] [place] [address] HOSPITAL SERVICE PER HOUR ANESTHESI 52582 [place] RONY Cruz 3 ANESTHESI CAM ANORECTAL A GROUP PS PROCEDURE CREATINE 44897 [facility] WHITE KINASE MB 3 [facility] [place] [address] JULIO CESARBETZAIDA JULIO CESARBETZAIDA THYROID 3 [facility] [place] [address] JULIO CESARBETZAIDA CHRISTOPHER FREE [address] [place] [address] THYROXINE [facility] INJECTION J1885 [facility] SUSY[address] KETOROLAC [facility] TROMETHAM INE PER 15 MG INJECTION J2710 SUSYELVI CHRISTOPHER [address] [place] [address] NEOSTIGMI [facility] NE METHYLSUL FATE UP TO 0.5 MG INJECTION J3010 [facility] FENTANYL [address] [facility] HOSPITAL 0.1 MG INJECTION J[address] LIDOCAINE [facility] HCL INTRAVENO US INFUS 10 MG INJECTION J[address] [facility] SONE SODIUM PHOSPHATE 1 MG NONINVASI 67877 [facility] VE [address] [place] [address] [facility] OXIMETRY SINGLE DETER HEMORRHOI 34275 [facility] DECTOMY [address] [place] [address] INTERNAL [facility] RUBBER BAND LIGATIONS INJECTION [id number] CEFAZOLIN [facility] SODIUM 500 MG INJECTION [id number] [address] HOSPITAL HCL PER 1 MG ECG [id number] [facility] ROUTINE [address] [place] [address] HOSPITAL W/LEAST 12 LDS TRCG ONLY W/O I&R INJECTION [id number] [address] ON HCL PER 1 MG ANOSCOPY 64543 CELIA JR ALLRAN JR DX 3 SAMIRA SAMIRA W/COLLJ SPEC BR/WA SPX WHEN PRFRMD INITIAL 95636 NAVID HERNANDEZ OBSERVATI 3 EMERGENCY PEDRITO IGN ON SERVICES CARE/DAY 70 MINUTES ECG 86639 CRISTIAN CORNEJO CONREJO CRISTIAN ROUTINE 3 MD ECG CONSULTIN W/LEAST G SRV 12 LDS I&R ONLY BASIC [id number] [facility] METABOLIC 3 [facility] CALCIUM TOTAL ECG 09625 [facility] ROUTINE [address] [place] [address] HOSPITAL W/LEAST 12 LDS TRCG ONLY W/O I&R BLOOD 39206 [facility] COUNT [address] [facility] HEMATOCRI [facility] T BLOOD 72315 [facility] COUNT [address] [facility] HEMOGLOBI [facility] N COLLECTIO 32691 [facility] N VENOUS 3 [facility] VENIPUNCT URE INCONTINE T4541 [facility] NCE 3 HOME HOME PRODUCT [facility] HE[facility] DISPOSABL AGENCY AGENCY E UNDPAD LARGE EA DISPBL T4535 [facility] LINER/KATHIE 3 HOME HOME ELD/GUARD HEALTH HEALTH /PAD/UNDG AGENCY AGENCY RMNT INCONT EA PWR K0823 [facility] GRP 2 STD 3 CAPTAINS CORPORATI CORPORATI CHAIR PT ON ON TO &=300 LBS HOS BED E0260 [facility] SEMI-ELEC 3 HOME HOME W/ANY MEDICAL MEDICAL TYPE SIDE EQUIPME EQUIPME RAIL W/[facility] 56773 [facility] DAY INTERNAL MANAGEMEN MED T 30 MIN/< SBSQ [address]/DAY INTERNAL 25 MED MINUTES SBSQ 61412 [facility]/DAY INTERNAL 25 MED MINUTES INITIAL [address] CARE/DAY INTERNAL 50 MED MINUTES RADIOLOGI 28048 [facility] EXAM 3 LILIBETH CHEST 2 RADIOLOGY VIEWS ASSOCIAT FRONTAL&L ATERAL US BREAST 69020 [facility] [employer], [facility], REAL 3 FOOD SERVICE COORDINATOR FOOD SERVICE COORDINATOR TIME ANDREY BALDERAS W/IMAGE CO HOS CO HOS DOCUMENTA TION MAMMOGRAP 01689 [facility] [employer], [facility], HY 3 FOOD SERVICE COORDINATOR FOOD SERVICE COORDINATOR UNILATERA ANDREY HANSENS L CO HOS CO HOS MAMMOGRAP 67437 [facility], HY 3 FOOD SERVICE COORDINATOR FOOD SERVICE COORDINATOR BILATERAL ANDREY BALDERAS CO HOS CO HOS PWR K0823 [facility] GRP 2 STD 3 CAPTAINS CORPORATI CORPORATI CHAIR PT ON ON TO &=300 LBS HOS BED E0260 [facility] SEMI-ELEC 3 HOME HOME W/ANY MEDICAL MEDICAL TYPE SIDE EQUIPME EQUIPME RAIL W/MATTRSS [facility] 47912 [facility] [employer], [facility], FUNCTION 3 FOOD SERVICE COORDINATOR FOOD SERVICE COORDINATOR PANEL ANDREY HANSENS CO HOS CO HOS SUSCEPTBI 93997 [facility] [employer], [facility] INC, LTY STDY 3 FOOD SERVICE COORDINATOR FOOD SERVICE COORDINATOR ANTIMICRB ANDREY BALDERAS IAL AGNT CO HOS CO HOS AGAR DILUTJ CULTURE 26640 [employer], [employer], BCT 3 FOOD SERVICE COORDINATOR FOOD SERVICE COORDINATOR ISOL&PRSM ANDREYDIYA BALDERAS PTV ID CO HOS CO HOS ISOLATE EA URINE BLOOD 06969 [employer], [employer], COUNT 3 FOOD SERVICE COORDINATOR FOOD SERVICE COORDINATOR COMPLETE ANDREY BALDERAS AUTO&AUTO CO HOS CO HOS DIFRNTL WBC PROTEIN 61535 [employer], [employer], TOTAL 3 FOOD SERVICE COORDINATOR FOOD SERVICE COORDINATOR XCPT ANDREY BALDERAS REFRACTOM [place] [address] [employer], [employer], PARATHORM 3 FOOD SERVICE COORDINATOR FOOD SERVICE COORDINATOR ONE ANDREY ANDREY CO HOS CO HOS 25 21141 [employer], [employer], HYDROXY 3 FOOD SERVICE COORDINATOR FOOD SERVICE COORDINATOR INCLUDES ANDREY BALDERAS FRACTIONS CO HOS CO HOS IF PERFORMED CREATININ 11536 [employer], [employer], E OTHER 3 FOOD SERVICE COORDINATOR FOOD SERVICE COORDINATOR SOURCE ANDREY BALDERAS CO HOS CO HOS URNLS DIP 30160 [employer], [employer], 3 FOOD SERVICE COORDINATOR FOOD SERVICE COORDINATOR STICK/TAB ANDREY BALDERAS LET CO HOS CO HOS REAGENT AUTO MICROSCOP Y CULTURE 70349 [employer], [employer], BACTERIAL 3 FOOD SERVICE COORDINATOR FOOD SERVICE COORDINATOR ANDREY BALDERAS QUANTTATI CO HOS CO HOS VE COLONY COUNT URINE RADEX 01679 [facility] ESOPHAGUS 3 [facility] RADIOLOG[facility] ASSOCIAT SCREENING 95588 [facility] MAMMOGRAP RADIOLOGY HY ASSOCIAT BILATERAL DISPBL T4535 [facility]/KATHIE 3 HOME HOME ELD/GUARD HEALTH HEALTH /PAD/UNDG AGENCY AGENCY RMNT INCONT EA ADLT SZD T4526 [facility] DISPBL 3 HOME HOME INCONT HEALTH HEALTH PROD AGENCY AGENCY UNDWEAR MED [place] MRI 12790 [facility] 3 Y Y CANAL [facility] LUMBAR W/O CONTRAST MATERIAL PWR K0823 HOVEROUND HOVEROUND GRP 2 STD 3 CAPTAINS CORPORATI CORPORATI CHAIR PT ON ON TO &=300 LBS HOS BED E0260 [facility] SEMI-ELEC 3 HOME HOME W/ANY MEDICAL MEDICAL TYPE SIDE EQUIPME EQUIPME RAIL W/[place] [address] [facility] INFUSION 3 [facility] THERAPY/P INC INC ROPHYLAXI S /DX 1ST TO 1 [place] [address] [facility] INFUSION 3 [facility] THERAPY INC INC PROPHYLAX IS/DX EA HOUR ANES 06309 [facility] LOWER 3 ANESTH INTESTINE OF THE BLUE ENDOSCOPY DISTAL DUODENUM COLOREC G0105 CELIA YANG JR CANCR 3 SAMIRA SAMIRA SCR; COLONSCPY INDIVIDUL @HIGH RISK INJECTION J3301 [facility] 3 Y Y [facility] LONE ACETONIDE NOS 10 MG NJX 82227 [facility] DX/THER 3 Y Y AGT [facility] FACET JT LMBR/SAC 1 LEVEL LOCM Q9967 [facility] [phone] Y Y MG/ML [facility] IODINE CONCENTRA TION PER ML ADLT [...] TYPE SIDE EQUIPME EQUIPME RAIL W/MATTRSS THERAPEUT 88613 [employer], [employer], IC PX 1/> 2 FOOD SERVICE COORDINATOR FOOD SERVICE COORDINATOR AREAS ANDREY BALDERAS EACH 15 CO HOS CO HOS MIN EXERCISES THERAPEUT 70221 [employer], [employer], IC PX 1/> 2 FOOD SERVICE COORDINATOR FOOD SERVICE COORDINATOR AREAS ANDREY BALDERAS EACH 15 CO HOS CO HOS MIN EXERCISES INCONTINE T4541 [facility] NCE 2 HOME HOME PRODUCT HEALTH HEALTH DISPOSABL AGENCY [place] [address] [facility] [employer], [employer], UREA 2 FOOD SERVICE COORDINATOR FOOD SERVICE COORDINATOR NITROGEN ANDREY BALDERAS QUANTITAT CO HOS CO HOS KETAN CREATININ 07149 [facility] JEAN, [facility], E BLOOD 2 FOOD SERVICE COORDINATOR FOOD SERVICE COORDINATOR ANDREY ANDREY CO HOS CO HOS THERAPEUT 79615 [facility] JEAN, [facility], IC PX 1/> 2 FOOD SERVICE COORDINATOR FOOD SERVICE COORDINATOR AREAS ANDREY BALDERAS EACH 15 CO HOS CO HOS MIN EXERCISES CT THORAX 34013 [facility] W/O 2 EIDER DEE CONTRAST RADIOLOGY MATERIAL ASSOCIAT THERAPEUT 70509 [facility] [employer], [employer], IC PX 1/> 2 FOOD SERVICE COORDINATOR FOOD SERVICE COORDINATOR AREAS ANDREY ANDREY EACH 15 CO HOS CO HOS MIN EXERCISES HOS BED E0260 [facility] SEMI-ELEC 2 HOME HOME W/ANY MEDICAL MEDICAL TYPE SIDE EQUIPME EQUIPME RAIL W/MATTRSS THERAPEUT 53051 [employer] JEAN, [employer], IC PX 1/> 2 FOOD SERVICE COORDINATOR FOOD SERVICE COORDINATOR AREAS ANDREY BALDERAS EACH 15 [place] [address] [employer], [employer], 1/> AREAS 2 FOOD SERVICE COORDINATOR FOOD SERVICE COORDINATOR EA 15 ANDREY BALDERAS MIN GAIT CO HOS CO HOS TRAINJ W/STAIR RADIOLOGI 42483 [facility] [employer], [employer], C EXAM 2 FOOD SERVICE COORDINATOR FOOD SERVICE COORDINATOR CHEST 2 ANDREY BALDERAS VIEWS CO HOS CO HOS FRONTAL&L ATERAL THERAPEUT 78515 [employer], [employer], IC PX 1/> 2 FOOD SERVICE COORDINATOR FOOD SERVICE COORDINATOR AREAS ANDREY ANDREY EACH 15 CO HOS CO HOS MIN EXERCISES PHYSICAL 39410 [employer], [employer], THERAPY 2 FOOD SERVICE COORDINATOR FOOD SERVICE COORDINATOR EVALUATIO ANDREY HANSENS N CO HOS CO HOS THERAPEUT 94849 [employer], [employer], IC PX 1/> 2 FOOD SERVICE COORDINATOR FOOD SERVICE COORDINATOR AREAS ANDREY ANDREY EACH 15 [place] [address] [place] ABDOMEN & 2 MEDICAL SCO PELVIS SERV W/O FOUNDATIO CONTRAST MATERIAL RADEX 25880 [facility] 2 Y Y [facility] MINIMUM 2 VIEWS RADEX 22176 [facility] SPINE 2 Y Y LUMBOSACR [facility] AL 2/3 VIEWS RADIOLOGI 02468 [facility] C 2 Y Y EXAMINATI [facility] ON KNEE 1/2 VIEWS CREATINE 46291 [facility] KINASE 2 Y Y TOTAL [facility] [place] [address] [facility] ALDOLASE 2 Y Y [facility] SEDIMENTA 00483 [facility] TION RATE 2 Y Y RBC [facility] AUTOMATED C-REACTIV 26905 [facility] E PROTEIN 2 Y Y [facility] COLLECTIO 85419 [facility] N VENOUS 2 Y Y BLOOD [facility] VENIPUNCT URE DISPBL T4535 [facility]KATHIE 2 HOME HOME ELD/GUARD HEALTH HEALTH /PAD/UNDG AGENCY AGENCY RMNT INCONT EA ADLT SZD T4526 [facility] DIS[facility] 2 HOME HOME INCONT HEALTH HEALTH PROD AGENCY AGENCY UNDWEAR MED EA PROTEIN 65353 [employer], [employer], TOTAL 2 FOOD SERVICE COORDINATOR FOOD SERVICE COORDINATOR XCPT ANDREY BALDERAS REFRACTOM CO HOS CO HOS ETRY URINE CREATININ 42919 [employer], [employer], E OTHER 2 FOOD SERVICE COORDINATOR FOOD SERVICE COORDINATOR SOURCE ANDREY BALDERAS CO HOS CO HOS CULTURE 21488 [employer], BACTERIAL 2 FOOD SERVICE COORDINATOR FOOD SERVICE COORDINATOR ANDREY BALDERAS QUANTTATI CO HOS CO HOS VE COLONY COUNT URINE URNLS DIP 44712 [employer], [employer], 2 FOOD SERVICE COORDINATOR FOOD SERVICE COORDINATOR STICK/TAB ANDREY BALDERAS LET CO HOS CO HOS REAGENT AUTO MICROSCOP Y RENAL 67181 [employer], [employer], FUNCTION 2 FOOD SERVICE COORDINATOR FOOD SERVICE COORDINATOR PANEL ANDREY BALDERAS CO HOS CO HOS CULTURE 44860 [employer], [employer], BCT 2 FOOD SERVICE COORDINATOR FOOD SERVICE COORDINATOR ISOL&PRSM ANDREY BALDERAS PTV ID CO HOS CO HOS ISOLATE EA URINE BLOOD 33659 [employer], [employer], COUNT 2 FOOD SERVICE COORDINATOR FOOD SERVICE COORDINATOR COMPLETE ANDREY BALDERAS AUTO&AUTO CO HOS CO HOS DIFRNTL WBC SUSCEPTBI 67805 [employer], [facility], LTY STDY 2 FOOD SERVICE COORDINATOR FOOD SERVICE COORDINATOR ANTIMICRB ANDREY ANDREY IAL AGNT CO HOS CO HOS AGAR DILUTJ BLOOD 04074 [facility], COUNT 2 FOOD SERVICE COORDINATOR FOOD SERVICE COORDINATOR COMPLETE ANDREY ANDREY AUTO&AUTO CO HOS CO HOS DIFRNTL WBC BASIC 19499 [facility], METABOLIC 2 FOOD SERVICE COORDINATOR FOOD SERVICE COORDINATOR PANEL ANDREY ANDRE[place] [address] [facility], INFUSION 2 FOOD SERVICE COORDINATOR FOOD SERVICE COORDINATOR THERAPY/P ANDREY ANDREY ROPHYLAXI CO HOS CO HOS S /DX 1ST TO 1 HR COMPREHEN 66826 [facility], SIVE 2 FOOD SERVICE COORDINATOR FOOD SERVICE COORDINATOR METABOLIC ANDRE[place] [address] [facility], INFUSION 2 FOOD SERVICE COORDINATOR FOOD SERVICE COORDINATOR HYDRATION ANDREY ANDREY INITIAL CO HOS CO HOS 31 MIN-1 HOUR CULTURE 01432 [facility], BCT 2 FOOD SERVICE COORDINATOR FOOD SERVICE COORDINATOR ISOL&PRSM ANDREY ANDREY PTV ID CO HOS CO HOS ISOLATE EA URINE INJECTION J2405 [facility], 2 FOOD SERVICE COORDINATOR FOOD SERVICE COORDINATOR ONDANSETR ANDREY ANDREY ON HCL CO HOS CO HOS PER 1 MG SUSCEPTBI 55097 [facility], LTY STDY 2 FOOD SERVICE COORDINATOR FOOD SERVICE COORDINATOR ANTIMICRB ANDREY ANDREY IAL AGNT CO HOS CO HOS AGAR DILUTJ URNLS DIP 14442 [facility], 2 FOOD SERVICE COORDINATOR FOOD SERVICE COORDINATOR STICK/TAB ANDREY ANDREY LET CO HOS CO HOS REAGENT AUTO MICROSCOP Y HOSPITAL G0378 [facility], OBSERVATI 2 FOOD SERVICE COORDINATOR FOOD SERVICE COORDINATOR ON ANDREY ANDREY SERVICE CO HOS CO HOS PER HOUR DIRECT G0379 [facility], ADMISSION 2 FOOD SERVICE COORDINATOR FOOD SERVICE COORDINATOR PATIENT [facility] CO HOS CO HOS OBSERV CARE CULTURE 48211 [facility], BACTERIAL 2 FOOD SERVICE COORDINATOR FOOD SERVICE COORDINATOR ANDREY ANDREY QUANTTATI CO HOS CO HOS VE COLONY COUNT URINE BLOOD 17728 [facility], COUNT 2 FOOD SERVICE COORDINATOR FOOD SERVICE COORDINATOR COMPLETE ANDREY ANDREY AUTO&AUTO CO [place] [address] [facility] [employer], [facility] [employer], LIPASE 2 FOOD SERVICE COORDINATOR FOOD SERVICE COORDINATOR ANDREY HANSENS CO HOS CO HOS ADLT SZD T4526 [facility] 2 HOME HOME INCONT HEALTH HEALTH PROD AGENCY AGENCY UNDWEAR MED EA DISPBL T4535 [facility]KATHIE 2 HOME HOME ELD/GUARD HEALTH HEALTH /PAD/UNDG AGENCY AGENCY RMNT INCONT EA ECG 85278 CRISTIAN CORNEJO CORNEJO CRISTIAN ROUTINE 2 MD ECG CONSULTIN W/LEAST G SRV 12 LDS I&R ONLY ECG 83640 CRISTIAN CORNEJO CORNEJO CRISTIAN ROUTINE 2 MD ECG CONSULTIN W/LEAST G SRV 12 LDS I&R ONLY HOSPITAL 86733 JAVIER JAIVER DISCHARGE 2 PEDRO PEDRO DAY MANAGEMEN T 30 MIN/< [place] [address] [facility] Natanael Ulien [facility], INFUSION 2 FOOD SERVICE COORDINATOR FOOD SERVICE COORDINATOR HYDRATION ANDREY BALDERAS INITIAL CO HOS CO HOS 31 MIN-1 [place] [address] [employer], [employer], INFUSION 2 FOOD SERVICE COORDINATOR FOOD SERVICE COORDINATOR THERAPY/P ANDREY BALDERAS ROPHYLAXI CO HOS CO HOS S /DX 1ST TO 1 HR ECG 92733 [facility] [employer], [facility] [employer], ROUTINE 2 FOOD SERVICE COORDINATOR FOOD SERVICE COORDINATOR ECG ANDREY BALDERAS W/LEAST CO HOS CO HOS 12 LDS TRCG ONLY W/O I&R SUSCEPTBI 03409 [facility] [employer], [facility] [employer], LTY STDY 2 FOOD SERVICE COORDINATOR FOOD SERVICE COORDINATOR ANTIMICRB ANDREY BALDERAS IAL AGNT CO HOS CO HOS AGAR DILUTJ COMPREHEN 51909 [facility] [employer], [facility], SIVE 2 FOOD SERVICE COORDINATOR FOOD SERVICE COORDINATOR METABOLIC ANDREY BALDERAS PANEL CO HOS CO HOS CULTURE 52567 [facility] [employer], [employer], BCT 2 FOOD SERVICE COORDINATOR FOOD SERVICE COORDINATOR ISOL&PRSM ANDREY BALDERAS PTV ID CO HOS CO HOS ISOLATE EA URINE RADIOLOGI 26637 [facility] [employer], [facility], C 2 FOOD SERVICE COORDINATOR FOOD SERVICE COORDINATOR EXAMINATI ANDREY BALDERAS ON CHEST CO HOS CO HOS [place] FRONTAL FIBRIN 40506 [facility] [employer], [facility] [employer], DGRADJ 2 FOOD SERVICE COORDINATOR FOOD SERVICE COORDINATOR PRODUCTS ANDREY ANDREY D-DIMER CO HOS CO HOS QUAL/SEMI HEATHER PROTHROMB 55568 [facility], [facility], IN TIME 2 FOOD SERVICE COORDINATOR FOOD SERVICE COORDINATOR ANDREY ANDREY CO HOS CO HOS CREATINE 52802 [facility], [facility], KINASE 2 FOOD SERVICE COORDINATOR FOOD SERVICE COORDINATOR TOTAL ANDREY ANDREY CO HOS CO HOS CREATINE 30148 [facility], [facility], KINASE MB 2 FOOD SERVICE COORDINATOR FOOD SERVICE COORDINATOR FRACTION ANDREY ANDREY ONLY CO HOS CO HOS BLOOD 09501 [facility], [employer], COUNT 2 FOOD SERVICE COORDINATOR FOOD SERVICE COORDINATOR COMPLETE ANDREY ANDREY AUTO&AUTO [place] [address] [employer], [employer], TROPONIN 2 FOOD SERVICE COORDINATOR FOOD SERVICE COORDINATOR QUANTITAT ANDREY ANDREY KETAN CO HOS CO HOS NATRIURET 19685 [facility] [employer], [employer], IC 2 FOOD SERVICE COORDINATOR FOOD SERVICE COORDINATOR PEPTIDE ANDREY ANDREY CO HOS CO HOS CULTURE 24302 [facility] [employer], [facility], BACTERIAL 2 FOOD SERVICE COORDINATOR FOOD SERVICE COORDINATOR ANDREY ANDREY QUANTTATI CO HOS CO HOS VE COLONY COUNT URINE URNLS DIP 32521 [employer], [employer], 2 FOOD SERVICE COORDINATOR FOOD SERVICE COORDINATOR STICK/TAB ANDREY ANDREY LET CO HOS CO HOS [place] [address] [employer], [employer], FREE 2 FOOD SERVICE COORDINATOR FOOD SERVICE COORDINATOR THYROXINE [place]RE[place] [address] [employer], [employer], THYROID 2 FOOD SERVICE COORDINATOR FOOD SERVICE COORDINATOR STIMULATI ANDREY ANDREY NG CO HOS CO HOS HORMONE TSH COMPREHEN 73634 [employer], [employer], SIVE 2 FOOD SERVICE COORDINATOR FOOD SERVICE COORDINATOR METABOLIC ANDREY ANDREY PANEL CO HOS CO HOS LIPID 02297 [facility], [employer], PANEL 2 FOOD SERVICE COORDINATOR FOOD SERVICE COORDINATOR ANDREY ANDREY CO HOS CO HOS ECG 80304 CRISTIAN CORNEJO CORNEJO CRISTIAN ROUTINE 2 MD ECG CONSULTIN W/LEAST G SRV 12 LDS I&R ONLY ECG 39665 [facility] [employer], [employer], ROUTINE 2 FOOD SERVICE COORDINATOR FOOD SERVICE COORDINATOR ECG ANDREY ANDREY W/LEAST CO HOS CO HOS 12 LDS TRCG ONLY W/O I&R RADIOLOGI 79264 [facility], [facility], C EXAM 2 FOOD SERVICE COORDINATOR FOOD SERVICE COORDINATOR CHEST 2 ANDREY ANDREY VIEWS CO HOS CO HOS FRONTAL&L ATERAL ARTERIAL 77492 [facility], PUNCTURE 2 FOOD SERVICE COORDINATOR FOOD SERVICE COORDINATOR WITHDRAWA ANDREY ANDREY L BLOOD CO HOS CO HOS DX COMPREHEN 92286 [facility], SIVE 2 FOOD SERVICE COORDINATOR FOOD SERVICE COORDINATOR METABOLIC ANDREY ANDREY PANEL CO HOS CO HOS INJECTION J2280 [facility], 2 FOOD SERVICE COORDINATOR FOOD SERVICE COORDINATOR MOXIFLOXA ANDREY NADREY KJ 100 CO HOS CO HOS MG GASES 19436 [facility], BLOOD PH 2 FOOD SERVICE COORDINATOR FOOD SERVICE COORDINATOR DIRECT ANDREY ANDREY FELA XCPT CO HOS CO HOS PULSE OXIMITRY URNLS DIP 20601 [facility], 2 FOOD SERVICE COORDINATOR FOOD SERVICE COORDINATOR STICK/TAB ANDREY ANDREY LET CO HOS CO HOS REAGENT AUTO MICROSCOP Y CULTURE 16407 [facility], BACTERIAL 2 FOOD SERVICE COORDINATOR FOOD SERVICE COORDINATOR ANDREY ANDREY QUANTTATI CO HOS CO HOS VE COLONY COUNT URINE BLOOD 98901 [facility], COUNT 2 FOOD SERVICE COORDINATOR FOOD SERVICE COORDINATOR COMPLETE ANDREY ANDREY AUTO&AUTO CO HOS CO HOS DIFRNTL [facility] G0378 [facility], OBSERVATI 2 FOOD SERVICE COORDINATOR FOOD SERVICE COORDINATOR ON ANDREY ANDREY SERVICE CO HOS CO HOS PER HOUR CULTURE 35879 [facility], BCT 2 FOOD SERVICE COORDINATOR FOOD SERVICE COORDINATOR ISOL&PRSM ANDREY ANDREY PTV ID CO HOS CO HOS ISOLATE EA URINE RADIOLOGI 56077 [facility] C EXAM 2 LILIBETH CHEST 2 RADIOLOGY VIEWS ASSOCIAT FRONTAL&L ATERAL SUSCEPTBI 00768 [facility], LTY STDY 2 FOOD SERVICE COORDINATOR FOOD SERVICE COORDINATOR ANTIMICRB ANDREY ANDREY IAL AGNT [place] [address] [facility], INFUSION 2 FOOD SERVICE COORDINATOR FOOD SERVICE COORDINATOR THERAPY/P ANDREY ANDREY ROPHYLAXI CO HOS CO HOS S /DX 1ST TO 1 HR BASIC 46657 [facility], METABOLIC 2 FOOD SERVICE COORDINATOR FOOD SERVICE COORDINATOR PANEL ANDREY ANDRE[place] [address] [facility], [employer], INFUSION 2 FOOD SERVICE COORDINATOR FOOD SERVICE COORDINATOR HYDRATION ANDREY BALDERAS EACH [place] [address] [employer], [employer], INFUSION 2 FOOD SERVICE COORDINATOR FOOD SERVICE COORDINATOR HYDRATION ANDREY BALDERAS INITIAL CO HOS CO HOS 31 MIN-1 HOUR INJECTION J0280 [facility] 2 Y Y [facility] 250 MG MYOCARDIA 82502 [facility] SPECT 2 Y Y [facility] STUDIES INJECTION J2785 [facility] 2 Y Y [facility] ON 0.1 MG CV STRS 93512 [facility] 2 Y Y XERS&/OR [facility] RX CONT ECG TRCG ONLY CV STRS 14264 [facility] 2 MEDICAL SAMIRA XERS&/OR SERV RX CONT FOUNDATIO ECG W/O I&R CV STRS 14351 [facility] 2 MEDICAL SAMIRA XERS&/OR SERV RX CONT FOUNDATIO ECG I&R ONLY TECHNETIU A9500 [facility] TC-99M 2 Y Y [facility] [place] [address] [place] DISANTIS ABDOMEN & 2 MEDICAL JEWELS PELVIS SERV W/O FOUNDATIO CONTRAST MATERIAL ECG 58897 CRISTIAN CORNEJO CORNEJO CRISTIAN ROUTINE 2 MD ECG CONSULTIN W/LEAST G SRV 12 LDS I&R ONLY SUSCEPTBI 91013 [facility] STDY 2 Y Y [facility] IAL AGNT AGAR DILUTJ SUSCEPTIB 84564 [facility] STDY 2 Y Y [facility] IAL MICRO/AGA R DILUTJ CULTURE 67199 [facility] BACTERIAL 2 Y Y [facility] QUANTTATI VE COLONY COUNT URINE CUL BACT 55104 [facility] AEROBIC [address] [facility] METHS DEFINITIV E EA ISOL URINLS 76024 KMS[facility] DAVEY DIP 2 NURSE GWE STICK/TAB PRACTITIO LET NER GR REAGNT NON-AUTO MICRSCPY ECG 29231 CRISTIAN CORNEJO CORNEJO CRISTIAN ROUTINE 2 MD ECG CONSULTIN W/LEAST G SRV 12 LDS I&R ONLY ECG 58413 CRISTIAN CORNEJO CORNEJO CRISTIAN ROUTINE 1 MD ECG CONSULTIN W/LEAST G SRV 12 LDS I&R ONLY ECG 55468 CRISTIAN CORNEJO CORNEJO CRISTIAN ROUTINE 1 MD ECG CONSULTIN W/LEAST G SRV 12 LDS I&R ONLY SUSCEPTBI 70935 ANDREY BALDERAS LTY STDY 1 CO CO ANTIMICRB [facility] IAL AGNT AGAR DILUTJ COMPREHEN 37030 ANDREY BALDERAS SIVE 1 CO [facility] HOSPITAL PANEL CULTURE 07226 ANDREY BALDERAS BCT 1 CO CO ISOL&PRSM [facility] PTV ID ISOLATE EA URINE PROTEIN 24044 ANDREY BALDERAS TOTAL 1 CO CO XCPT [facility] [place] [address] ANDREY BALDERAS PHOSPHORU 1 CO CO S [facility] INORGANIC CREATININ 40578 ANDREY Bolivar OTHER 1 CO CO [facility] HOSPITAL CULTURE 55061 ANDREY BALDERAS BACTERIAL 1 CO CO [facility] QUANTTATI VE COLONY COUNT URINE COLLECTIO 17593 ANDREY Cook VENOUS 1 CO CO BLOOD [facility] VENIPUNCT URE BLOOD 97338 ANDREY CHAVARRIA 1 CO CO COMPLETE [facility] AUTO&AUTO DIFRNTL WBC URNLS DIP 65440 ANDREY BALDERAS 1 CO CO STICK/TAB HOSPITAL HOSPITAL LET REAGENT AUTO MICROSCOP Y BLOOD 38525 ANDREY CHAVARRIA 1 CO CO SMEAR [facility] MCRSCP W/[place] [address] ANDREY BALDERAS BLOOD/URI 1 CO CO C ACID [facility] RADIOLOGI 42366 MINH Sanchez EXAM 1 MEDICAL CHEST 2 SERV VIEWS [facility] FRONTAL&L ATERAL ECG 49079 [place] OLIVEIRA ROUTINE 1 MEDICAL NAN ECG SERV W/LEAST [facility] 12 LDS I&R ONLY DUP-SCAN 92528 [place] MARIO XTR VEINS 1 [facility] [place] [facility] 09170 [facility] DISCHARGE 1 [place] [facility] DAY MEDICINE MANAGEMEN P T 30 MIN/< RADIOLOGI 72169 ANDREY BALDERAS C 0 CO CO [facility] ON KNEE 3 VIEWS RENAL 92328 ANDREY BALDERAS FUNCTION 0 CO CO PANEL [facility] RADIOLOGI 90258 ANDREY BALDERAS C 0 CO CO [facility] ON PELVIS 1/2 VIEWS RADEX HIP 80906 ANDREY BALDERAS 0 CO CO [facility] L COMPLETE MINIMUM 2 VIEWS OVA&ZONIA 03661 ANDREY BALDERAS ITES 0 CO CO DIRECT [facility] SMEARS CONCENTRA TION & ID COMPLEMEN 10281 ANDREY Flor TOTAL 0 CO CO HEMOLYTIC [facility] BLOOD 09977 ANDREY BALDERAS COUNT 0 CO CO SMEAR [facility] MCRSCP W/MNL DIFRNTL WBC COUNT URNLS DIP 56564 ANDREY BALDERAS 0 CO CO STICK/TAB HOSPITAL HOSPITAL LET REAGENT AUTO MICROSCOP Y DNA 31392 ANDREY BALDERAS ANTIBODY 0 CO CO COEUR D'ALENE/DO HOSPITAL HOSPITAL UBLE STRANDED C-REACTIV 28166 ANDREY BALDERAS E PROTEIN 0 CO CO [facility] COLLECTIO 15949 ANDREY BALDERAS N VENOUS 0 CO CO BLOOD HOSPITAL HOSPITAL VENIPUNCT URE CREATININ 78440 ANDREY BALDERAS E OTHER 0 CO CO SOURCE [facility] CREATINE 03969 ANDREY BALDERAS KINASE 0 CO [place] [address] ANDREY BALDERAS PARATHORM 0 CO CO [facility] 25 75261 ANDREY BALDERAS HYDROXY 0 CO CO INCLUDES HOSPITAL [place] [address] ANDREY BALDERAS ALDOLASE 0 CO CO HOSPITAL HOSPITAL PROTEIN 37858 ANDREY BALDERAS TOTAL 0 CO CO XCPT [facility] REFRACTOM ETRY URINE SEDIMENTA 02411 ANDREY BALDERAS TIELVI RATE 0 CO CO RBC HOSPITAL HOSPITAL NON-AUTOM ATED COMPLEMEN 08817 ANDREY ANDREY T ANTIGEN 0 CO CO EACH [facility] COMPONENT BLOOD 29044 [facility] COUNT 0 Y Y COMPLETE [facility] AUTO&AUTO DIFRNTL WBC COLLECTIO 88721 [facility] N VENOUS 0 Y Y BLOOD [facility] VENIPUNCT URE COMPREHEN 61316 [facility] SIVE 0 Y Y METABOLIC [facility] PANEL COMPREHEN 16160 [facility] SIVE 0 Y Y METABOLIC [facility] PANEL COLLECTIO 85720 [facility] N VENOUS 0 Y Y BLOOD [facility] VENIPUNCT URE BLOOD 23433 UNIVERS UNIVERSIT COUNT 0 Y Y COMPLETE [facility] AUTO&AUTO DIFRNTL WBC CHROMATOG 31156 [facility] SURYA 0 Y Y HEATHER [facility] COLUMN 1 ANALYTE KARLENE ANESTHESI 78570 [facility] G A EYE 0 ANESTHESI LENS A ASSOC SURGERY CATARACT 12204 COMMON[facility] COMMONWEA REMOVAL 0 LTH EYE LTH EYE INSERTION SURG SURG OF LENS AMBULA AMBULA OPH BMTRY 82391 PHILIPP RIVERO BRANT PRTL 0 ROBERT COHER INTRFRMTR Y IO LENS PWR KELLEE ECG 8[address]58 [facility] [place] 0 Y Y ECG [facility] W/LEAST 12 LDS TRCG ONLY W/O I&R Encounters Encounter Start End Date Code Location Performer Type Date HOME [facility], 7 7 HOME [facility]PATIENT [facility] [place] [address]63 [place] OUTPATIEN 7 7 MEDICAL T VISIT SERV 25 FOUNDATIO MINUTES N HOSPITAL [facility] - 7 7 [facility]PATIEN [facility] - 7 7 [facility] OUTPATIEN INC T HOME [facility], [facility]–1983 7 7 HOME INPATIENT HEALTH AGENCY OFFICE 04997 [place] ARIANE OUTPATIEN 7 7 MEDICAL JR T NEW 45 SERV MINUTES [place] N [place]ICE 66554 [place] HERBERT OUTPATIEN 7 7 MEDICAL T VISIT SERV 40 FOUNDATIO MINUTES N HOME [facility], 7 7 HOME [facility]PATIENT [facility] - 7 7 [facility]ITALS OFFICE 86543 [place] HERBERT OUTPATIEN 7 7 MEDICAL T VISIT SERV 40 FOUNDATIO MINUTES N HOME [facility], 7 7 HOME INPATIENT HEALTH AGENCY OFFICE 36643 [place] GUILLEN PERRY OUTPATIEN 6 6 MEDICAL T VISIT SERV 25 FOUNDATIO MINUTES [facility] KRISSY - 6 6 [facility]PATIEN [facility] T OFF[facility] 90772 [facility] H[facility] OUTPATIEN 6 6 PHYSICIAN T VISIT S GROUP 10 MINUTES [facility] KRISSY - 6 6 [facility] OUTPATIEN [facility] T OFFICE 07387 [facility] OUTPATIEN 6 6 PHYSICIAN T VISIT S GROUP 10 MINUTES OFFICE 33881 [facility] OUTPATIEN 6 6 PHYSICIAN T VISIT S GROUP 15 MINUTES HOSPITAL KRISSY - 6 6 [facility] OUTPATIEN [facility] T OFFICE 19516 [facility] OUTPATI[facility] 6 6 PHYSICIAN T NEW 30 S GROUP MINUTES [facility] KRISSY - 6 6 [facility] OUTPATIEN [facility] KRISSY [facility] 6 6 [facility] OUTPATIEN [facility] - 6 6 [facility] 81700 [place] HENDRIXI OUTPATIEN 6 6 MEDICAL T VISIT SERV 25 FOUNDATIO MINUTES N HOME [facility], 6 6 HOME INPATIENT HEALTH AGENCY EMERGENCY 95149 [facility] DEPT 6 6 HARIS VISIT EMERGENCY HIGH PHYS SEVERITY& THREAT FUNCJ HOME [facility], 6 6 HOME INPATIENT HEALTH [facility]ENCY [facility] UN[facility]ERSIT - 6 6 Y [facility] T OFFICE 27203 [place] HERB[place] ARGUETA OUTPATIEN 6 6 MEDICAL T VISIT SERV 40 FOUNDATIO MINUTES N OFFICE 17798 [place] JAQUEZ OUTPATIEN 6 6 [facility] T VISIT INTERNAL 15 MEDI MINUTES HOSPITAL KRISSY - OTHER 6 6 MEM [facility] INC HOME [facility], 6 6 HOME INPATIENT HEALTH AGENCY OFFICE 84701 [place] YOVANY OUTPATIEN 6 6 [facility]LEY NICOLA T VISIT INTERNAL 15 MEDI MINUTES OFFICE 11887 [place] WILMER AMADOR OUTPATIEN 6 6 MEDICAL T VISIT SERV 25 FOUNDATIO MINUTES [facility] KRISSY - OTHER 6 6 [facility] INC OFFICE 75311 [place]ALL[place] TAI OUTPATIEN 6 6 YONY KRIS T NEW 30 MINUTES HOME [facility], 6 6 HOME INPATIENT HEALTH [facility] KRISSY - 6 6 [facility] OUTPATIEN INC T OFFICE 10275 [place] BESSON OUTPATIEN 6 6 MAURY TIMOTHY T VISIT INTERNAL 25 MED MINUTES HOSPITAL UNIVERSIT - 5 5 [facility] T OFFICE 25389 [place] HERBERT ARGUETA OUTPATIEN 5 5 MEDICAL T VISIT SERV 40 FOUNDATIO MINUTES HOSPITAL KRISSY - 5 5 [facility] OUTPATIEN INC T EMERGENCY 00801 [facility] PHYSICIAN U CAROL VISIT S, PLLC HIGH SEVERITY& THREAT FUNCJ EMERGENCY 56931 KRISSY 5 5 [facility] DEPARTMEN INC T VISIT HIGH/URGE NT SEVERITY HOME [facility], 5 5 HOME INPATIENT HEALTH AGENCY OFFICE 84364 [facility] SOPH[facility] TOD OUTPATIEN 5 5 PHYSICIAN T VISIT S GROUP 15 MINUTES HOME [facility], 5 5 HOME INPATIENT HEALTH AGENCY OFFICE 98977 [place] BESSON OUTPATIEN 5 5 VALLEY TIMOTHY T VISIT INTERNAL 15 MED MINUTES HOSPITAL KRISSY - 5 5 [facility] OUTPATIEN INC T OFFICE 83789 [facility] SOPHIE TOD OUTPATIEN 5 5 PHYSICIAN T NEW 30 S GROUP MINUTES HOSPITAL KRISSY - 5 5 [facility] OUTPATIEN INC T HOSPITAL KRISSY - 5 5 [facility] OUTPATIEN INC T OFFICE 55634 MINH AMADOR OUTPATIEN 5 5 MEDICAL T VISIT SERV 25 FOUNDATIO MINUTES N OFFICE 16864 [place] JAQUEZ OUTPATIEN 5 5 [facility] T VISIT INTERNAL 15 MEDI MINUTES HOSPITAL KRISSY - OTHER 5 5 [facility] INC OFFICE 78551 [place] JAQUEZ OUTPATIEN 5 5 [facility] HOL T VISIT INTERNAL 25 MEDI MINUTES HOME [facility], 5 5 HOME INPATIENT HEALTH AGENCY HOME [facility], 5 5 DIST OTHER HEALTH DEPT [facility] KRISSY - 5 5 [facility] OUTPATIEN INC HOME [facility], 5 5 DIST OTHER HEALTH DEPT [facility], 5 5 HOME INPATIENT HEALTH AGENCY HOME [facility], 5 5 DIST OTHER HEALTH DEPT [facility] OFFICE 79665 MINH ARGUETA OUTPATIEN 5 5 MEDICAL T VISIT SERV 40 FOUNDATIO MINUTES HOSPITAL KRISSY - 5 5 [facility] OUTPATIEN INC T EMERGENCY 67648 KRISSY 5 5 MEM [facility] DEPARTMEN INC T VISIT HIGH/URGE NT SEVERITY HOME [facility], 5 5 DIST OTHER HEALTH DEPT [facility] HOME [facility], 5 5 DIST OTHER HEALTH DEPT [facility] HOME [facility], 5 5 HOME OUTPATIEN HEALTH T AGENCY OFFICE 42520 [place] BESSON OUTPATIEN 5 5 VALLEY TIMOTHY T VISIT INTERNAL 15 MED MINUTES HOME [facility], 5 5 DIST OTHER HEALTH DEPT 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 TRAINERS HOME [facility], 5 5 DIST OTHER HEALTH DEPT 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 OFFICE 88060 [place] WILMER AMADOR OUTPATIEN 5 5 MEDICAL T VISIT SERV 25 FOUNDATIO MINUTES N HOME [facility], 5 5 DIST OTHER HEALTH DEPT [facility] HOME [facility], 5 5 HOME OUTPATIEN HEALTH T AGENCY OFFICE 93618 [place] HERBERT ARGUETA OUTPATIEN 5 5 MEDICAL T VISIT SERV 40 FOUNDATIO MINUTES N HOME [facility], 5 5 DIST OTHER HEALTH DEPT [facility], 4 4 HOME OUTPATIEN HEALTH T AGENCY [place] [facility], 4 4 DIST OTHER HEALTH DEPT [facility], 4 4 DIST OTHER HEALTH DEPT 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 OFFICE 32668 [place] HERBERT ARGUETA OUTPATIEN 4 4 MEDICAL T VISIT SERV 15 FOUNDATIO MINUTES N HOME [facility], 4 4 HOME OUTPATIEN HEALTH T [facility] KRISSY - 4 4 MEM HOSP OUTPATIEN INC T OFFICE 51842 [place] WILMER AMADOR OUTPATIEN 4 4 MEDICAL T VISIT SERV 25 FOUNDATIO MINUTES HOSPITAL KRISSY - 4 4 [facility] OUTPATIEN INC T HOME [facility], 4 4 DIST OTHER HEALTH DEPT 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 TRA[employer]ERS HOME [facility], 4 4 DIST OTHER HEALTH DEPT 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 TRA[employer]ERS HOME [facility], 4 4 HOME OUTPATIEN HEALTH T AGENCY HOME [facility], 4 4 DIST OTHER HEALTH DEPT 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 OFFICE 10371 [place] WIL[place] AMADOR OUTPATIEN 4 4 MEDICAL T VISIT SERV 25 FOUNDATIO MINUTES OFFICE 96857 [place] HERBERT ARGUETA OUTPATIEN 4 4 MEDICAL T VISIT SERV 25 FOUNDATIO MINUTES HOSPITAL KRISSY - 4 4 [facility] OUTPATIEN INC T HOME [facility], 4 4 DIST OTHER HEALTH DEPT [facility] HOME [facility], 4 4 DIST OTHER HEALTH DEPT 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 TRAINERS HOME [facility], 4 4 HOME OUTPATIEN HEALTH T AGENCY HOME [facility], 4 4 DIST OTHER HEALTH DEPT 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 OFFICE 13842 [place] HERBERT ARGUETA OUTPATIEN 4 4 MEDICAL T VISIT SERV 40 FOUNDATIO MINUTES HOME [facility], 4 4 DIST OTHER HEALTH DEPT 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 OFFICE 48739 [place] WILMER AMADOR OUTPATIEN 4 4 MEDICAL T VISIT SERV 25 FOUNDATIO MINUTES CRITICAL [facility], ACCESS 4 4 FOOD SERVICE COORDINATOR [facility] HOME [facility], 4 4 DIST OTHER HEALTH DEPT 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 TRA[employer]ERS [facility], 4 4 HOME OUTPATIEN HEALTH T AGENCY [facility] [employer], 4 4 DIST OTHER HEALTH DEPT 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 TRAIN[employer] OFFICE 65359 [place] EMERALD OUTPATIEN 4 4 MAURY TIMOTHY T VISIT INTERNAL 15 MED MINUTES HOME [facility], 4 4 HOME [facility] HEALTH T AGENCY HOME [facility], 4 4 DIST OTHER HEALTH DEPT [facility]OSPITAL UNIVERSIT - 3 3 Y OUTPATI HOSPITAL T OFFICE 91323 [place] WILMER AMADOR OUTPATIEN 3 3 MEDICAL T VISIT SERV 25 FOUNDATIO MINUTES CRITICAL [facility], ACCESS 3 3 FOOD SERVICE [facility] CRITICAL [facility], ACCESS 3 3 FOOD SERVICE [facility] [employer], 3 3 DIST OTHER [facility] 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 TRAINERS OFFICE 69739 MINH HEBER OUTPATIEN 3 3 MEDICAL EJ T NEW 45 SERV MINUTES FOUNDATIO HOME [facility] [employer], 3 3 DIST OTHER HEALTH DEPT [facility] CRITICAL [facility], ACCESS 3 3 FOOD SERVICE [facility] [employer], 3 3 [facility]ENC[facility] OFFICE 10457 [place] HERBERT ARGUETA OUTPATIEN 3 3 MEDICAL T VISIT SERV 40 FOUNDATIO MINUTES HOME [facility] [employer], 3 3 DIST OTHER HEALTH DEPT [facility] OFFICE 82687 [place] WILMER AMADOR OUTPATIEN 3 3 MEDICAL T VISIT SERV 25 FOUNDATIO MINUTES HOME [facility] [employer], 3 3 DIST OTHER HEALTH DEPT 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 TRA[employer]ERS CRITICAL [facility], ACCESS 3 3 FOOD SERVICE [facility], ACCESS 3 3 FOOD SERVICE [facility], ACCESS 3 3 [facility] HOME [facility] 3 3 DIST OTHER HEALTH DEPT [facility] OFFICE 63309 [place] BESSON OUTPATIEN 3 3 [facility] T VISIT INTERNAL 15 MED MINUTES HOME [facility], 3 3 [facility] HEALTH T AGENCY HOME [facility], 3 3 DIST OTHER HEALTH DEPT [facility] OFFICE 66227 ALLRAN JR ALLRAN JR OUTPATIEN 3 3 SAMIRA HOGAN T VISIT 15 MINUTES OFFICE 47958 CRISTIAN CORNEJO BEANJoey CAR OUTPATIEN 3 3 T VISIT CONSULTIN 25 G SERV MINUTES OFFICE 94240 [place] BESSON OUTPATIEN 3 3 [facility] VISIT INTERNAL 25 MED MINUTES CRITICAL [facility], ACCESS 3 3 [facility] [place] - 3 3 [facility] CRITICAL [facility] ACCESS 3 3 [facility] - 3 3 [facility] [place] 3 3 [facility] 3 3 DIST OTHER [facility] [place] - 3 3 [facility] [place] [facility] 3 3 [facility] 3 3 DIST OTHER HEALTH DEPT [facility] KRISSY - [address] [facility] 16324 [place] BESSON OUTPATIEN 3 3 [facility] T VISIT INTERNAL 15 MED MINUTES [facility]OSPITAL [place] - 3 3 [facility] [place] 3 [facility] T HOME [facility], 3 3 DIST OTHER HEALTH DEPT 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 TRAINERS OFFICE 06456 CELIA YANG JR OUTPATIEN 3 3 SAMIRA SAMIRA T VISIT 15 MINUTES HOME [facility], 3 3 DIST OTHER HEALTH DEPT 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 TRAINERS HOME [facility], 3 3 HOME OUTPATI HEALTH T AGENCY [facility] ACCESS 3 3 FOOD SERVICE COORD[facility] HOME [facility], 3 3 DIST OTHER HEALTH DEPT [facility] CR[facility]ICAL [facility], ACCESS 3 3 FOOD SERVICE [facility] CO HOS OFFICE 94299 MINH AMADOR OUTPATIEN 3 3 MEDICAL T VISIT SERV 25 FOUNDATIO MINUTES OFFICE 64469 CELIA YANG JR OUTPATIEN 3 3 SAMIRA SAMIRA T VISIT 15 MINUTES CR[facility]ICAL [facility], ACCESS 3 3 FOOD SERVICE [facility] HOS [facility], 3 3 DIST OTHER HEALTH DEPT [facility] CRITICAL [facility], ACCESS 3 3 FOOD SERVICE [facility], ACCESS 3 3 FOOD SERVICE [facility] CO HOS HOME [facility], 3 3 HOME OUTPATI HEALTH [facility] UNIVERSIT - 3 3 [facility] 3 3 [facility]PAT[facility]EN [facility] T HOME [facility], 3 3 DIST OTHER HEALTH DEPT [facility] UNIVERSIT - 3 3 [facility] 17771 MINH ARGUETA OUTPATIEN 2 2 MEDICAL T VISIT SERV 25 FOUNDATIO MINUTES HOME [facility], 2 2 HOME OUTPATIEN HEALTH T AGENCY OFFICE 51716 CELIA YANG JR OUTPATIEN 2 2 SAMIRA SAMIRA T NEW 30 MINUTES HOME [facility], 2 2 DIST OTHER HEALTH DEPT [facility] HOME [facility], 2 2 HOME OUTPATIEN HEALTH T AGENCY CRITICAL [facility], ACCESS 2 2 FOOD SERVICE COORD[facility]ATOR [facility] CO HOS CRITICAL [facility], ACCESS 2 2 FOOD SERVICE COORD[facility]ATOR [facility] CO HOS CRITICAL [facility], ACCESS 2 2 FOOD SERVICE [facility] CO HOS CRITICAL [facility], ACCESS 2 2 FOOD SERVICE COORD[facility]ATOR [facility] HOSPITAL UNIVERSIT - 2 2 Y [facility] T OFFICE 23121 [place] LUZMARIA OUTPATIEN 2 2 MEDICAL XOCHITL T VISIT SERV 15 FOUNDATIO MINUTES HOME [facility], 2 2 DIST OTHER HEALTH DEPT [facility] UNIVERSIT - 2 2 [facility] T OFFICE 51559 [place] HERBERT KRI OUTPATIEN 2 2 MEDICAL T VISIT SERV 25 FOUNDATIO MINUTES HOME [facility], 2 2 HOME OUTPATIEN HEALTH T AGENCY OFFICE 76967 [place] GUILLEN PERRY OUTPATIEN 2 2 MEDICAL T VISIT SERV 25 FOUNDATIO MINUTES HOME [facility], 2 2 DIST OTHER HEALTH DEPT [facility] EMERGENCY 00756 [facility], 2 2 FOOD SERVICE COORDIN[facility] T VISIT CO HOS HIGH/URGE NT SEVERITY CRITICAL [facility], ACCESS 2 2 FOOD SERVICE COORDINATOR [facility] CO HOS HOME [facility], 2 2 HOME OUTPATIEN HEALTH T AGENCY [facility], 2 2 DIST OTHER HEALTH DEPT [facility], - 2 2 FOOD SERVICE COORDINATOR OUTPATIEN [facility]RE[facility] T CO HOS EMERGENCY 66747 [facility] KEITAO 2 2 CO [facility] T VISIT MODERATE SEVERITY EMERGENCY 85649 [facility], DEPT 2 2 FOOD SERVICE COORDINATOR VISIT [facility] HIGH CO HOS SEVERITY& THREAT FUNCJ HOME [facility], 2 2 DIST OTHER HEALTH DEPT [facility], - 2 2 FOOD SERVICE COORDINATOR OUTPATIEN [facility]RE[facility] T CO HOS OFFICE 91754 [facility] OUTPATIEN 2 2 [place] FAMILY CAROL T VISIT MEDICINE 25 P MINUTES OFFICE 46072 [facility] FED [facility] T NEW 20 MINUTES HOME [facility] 2 2 DIST OTHER HEALTH DEPT [facility], 2 2 DIST OTHER HEALTH DEPT [facility], - 2 2 FOOD SERVICE COORDINATOR INPATIENT [facility] CO HOS EMERGENCY 73016 [facility] KEITAO 2 2 CO [facility] T VISIT MODERATE SEVERITY EMERGENCY 04100 [facility], 2 2 FOOD [facility] T VISIT CO HOS HIGH/URGE NT SEVERITY HOSPITAL [facility], - 2 2 FOOD SERVICE COORDINATOR OUTPATIEN [facility]RE[facility] T CO HOS OFFICE 15304 [place] ENDEAN OUTPATIEN 2 2 MEDICAL XOCHITL T NEW 60 SERV MINUTES [facility] UNIVERSIT - 2 2 [facility] 2 [facility] T OFFICE 93534 [facility] OUTPATIEN 2 2 [place] FAMILY T VISIT MEDICINE 15 P MINUTES HOSPITAL UNIVERSIT - 2 2 Y [facility] T OFFICE 41313 [facility] 2 2 NURSE HUSSEIN T NEW 45 PRACTITIO MINUTES [facility], - 1 1 FOOD SERVICE COORDINATOR INPATIENT [facility] AND[facility] - 1 1 CO [facility] T OFFICE 64852 [place] HERBERT KRI [facility] 1 1 MEDICAL T VISIT SERV 40 FOUNDATIO [facility] UNIVERSIT [facility] 1 1 Y INPATIENT [facility] ANDREY - 0 0 [facility] UNIVERSIT - 0 0 Y [facility] T OFFICE 09694 [facility] OUTPATI 0 0 [place] FAM[place] CAR[facility] T VISIT MEDICINE 15 P MINUTES [facility] UNIVERSIT - 0 0 Y [facility] T OFFICE 55416 [facility] OUTPATIEN 0 0 [place] T VISIT 15 MINUTES OFFICE 75260 [facility] OUT[facility] 0 0 [place] T VISIT 15 MINUTES OFFICE 39053 [facility] OUTPATIEN 0 0 [place] T VISIT 15 MINUTES HOSPITAL UNIVERSIT - 0 0 Y [facility] T
--- OUTSIDE RECORDS SUMMARY | 2017-09-02 16:44 | External Medical Summary Rpt | CCD ---
Author Author , JACQUELYN Organization JACQUELYN Address Unknown Phone Care Team Providers Care Marketing Systems Manager Name Role Phone [employer] Unavailable Unavailable INC, [employer] Unavailable Unavailable INC, [employer] ALLRAN JR SAMIRA, ALLRAN Unavailable Unavailable JR SAMIRA ALLRAN JR SAMIRA, ALLRAN Unavailable Unavailable JR SAMIRA JAQUEZ HOL, JAQUEZ Unavailable Unavailable HOL BERNERT EJ, BERNERT Unavailable Unavailable EJ BESSON TIMOTHY, BESSON Unavailable Unavailable TIMOTHY MCKEON, MCKEON Unavailable Unavailable MCKEON ALL, MCKEON ALL Unavailable Unavailable [facility] Unavailable Unavailable [facility], [facility] TAI KRIS, TAI Unavailable Unavailable KRIS MARY [...] KENNY ANTWAN [facility] Unavailable Unavailable [facility], [facility] Unavailable Unavailable [facility]OC, [facility] DISANTIS JEWELS, Unavailable Unavailable DISANTIS [...] Unavailable HAGENSCHAUDREY DEE, Unavailable Unavailable HAGCHNEIDER DEE [facility] Unavailable Unavailable CARE, [facility] Unavailable Unavailable CARE, [facility] Unavailable Unavailable INC, [facility] Unavailable Unavailable HOSPITAL P, [facility]PITAL P WALKER RADHA, WALKER RADHA Unavailable Unavailable [facility], Unavailable Unavailable [facility] DAVEY GWE, DAVEY Unavailable Unavailable GWE HOUSMAN KAMILA, HOUSMAN Unavailable Unavailable KAMILA [facility] Unavailable Unavailable CORPORATION, [facility] Unavailable Unavailable [facility]PORATION, [facility] Unavailable Unavailable CORPORATION, [facility] Un[facility] Unavailable GROUP PS, [facility] Un[facility] Unavailable [facility], [facility] KERN CAR, KERN CAR [...] PEDRO MAJORS G, MAJORS G Unavailable Unavailable [facility] Unavailable Unavailable SERVICES, [facility] Unavailable Unavailable ASSOCIAT, [facility] MCKEMIE JR KAMILA, Unavailable Unavailable MCKEMIE JR KAMILA JACKSON CAROL, Unavailable Unavailable [facility] Unavailable Unavailable [facility], [facility] AVILES KAMILA, AVILES KAMILA Unavailable Unavailable RONY LEVY, RONY Unavailable Unavailable [facility], Unavailable Unavailable [facility] Unavailable Unavailable AMBULANCE SE, [facility] Unavailable Unavailable AMBULANCE SE, [facility] CRISTIAN CORNEJO MD Unavailable Unavailable [...] EQUIPME SOTINGEANU CAROL, Unavailable Unavailable SOTINGEANU CAROL [facility] Unavailable Unavailable EMERGENCY PHYS, [facility]GENCY PHYS [facility], Unavailable [facility]available [facility] Unavailable Unavailable CLINIC, [facility] YOO SCO, YOO Unavailable Unavailable [facility] Unavailable [facility], [facility] Unavailable Unavailable SU[facility]PLY, [facility] Unavailable Unavailable SUPPLY, 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[employer] AIR CONDITIONING MECHANIC [facility] Unavailable Unavailable AGENCY, [facility] MARIO SANTA, MARIO Unavailable Unavailable [facility]ANT[facility] Purpose Continuity of Care Document - 08-29-2010 through 2016 Problems Code Diagnosis DOS Provider Status N189 CHRONIC 08-25-2017 [facility] UNSPECIFIED K580 IRRITABLE 07-25-2017 [facility] SYNDROME AGENCY WITH DIARRHEA M1990 UNSPECIFIED 07-25-2017 [facility] OSTEOARTHRI AGENCY TIS UNSPECIFIED SITE N8110 CYSTOCELE 07-25-2017 [facility] UNSPECIFIED HEALTH AGENCY R159 FULL 07-25-2017 [facility] INCONTINENC HEALTH E OF FECES AGENCY R3981 FUNCTIONAL 07-25-2017 [facility] URINARY HEALTH INCONTINENC AGENCY E I129 HYPERTENSIV 07-16-2017 [facility] E CKD SERV W/STAGE 1-4 [facility] CKD OR UNS CKD M329 SYSTEMIC 07-16-2017 [facility] LUPUS SERV ERYTHEMATOS [facility] US UNSPECIFIED M810 AGE-RELATED 07-16-2017 [facility] SERV OSTEOPOROSI [facility] S W/O CURRNT PATH FX N039 CHRONIC 07-16-2017 [facility] NEPHRITIC SERV SYND W/UNS FOUNDATION MORPHOLOGIC CHANGES N183 CHRONIC 07-16-2017 [facility] KIDNEY SERV DISEASE FOUNDATION STAGE 3 MODERATE N250 RENAL 07-16-2017 [facility] OSTEODYSTRO SERV PHY FOUNDATION R809 PROTEINURIA 07-16-2017 [facility] UNSPECIFIED FOUNDATION R8290 UNSPECIFIED 07-16-2017 [facility] ABNORMAL [facility] FINDINGS IN INC URINE M069 RHEUMATOID 06-02-2017 [facility] ARTHRITIS [employer] UNSPECIFIED M3210 SYSTEMIC 06-02-2017 [facility]PORATION ERYTHEMATOS US ORGAN/SYS INVLV UNS M4000 POSTURAL 06-02-2017 [facility] KYPH[facility]IS [facility] SITE UNSPECIFIED M549 DORSALGIA 05-29-2017 [facility] R079 CHEST PAIN 05-29-2017 [place] [facility]PEC[facility] IMAGING ASS R091 PLEURISY 05-29-2017 [facility] INC R69 ILLNESS 05-15-2017 [facility] UNSPECIFIED TRANSPORTAT ION SER M36827 UNSPECIFIED 04-30-2017 [facility] SERV ASTIGMATISM FOUNDATION BILATERAL H524 PRESBYOPIA 04-30-2017 [facility] A34278 OTHER LONG 04-30-2017 [facility] TERM SERV CURRENT FOUNDATION DRUG THERAPY Z961 PRESENCE OF 04-30-2017 [facility] INTRAOCULAR FOUNDATION LENS G8929 OTHER 04-29-2017 [facility] CHRONIC SERV PAIN FOUNDATION L853 XEROSIS 04-29-2017 [facility] CUTIS SERV FOUNDATION M545 LOW BACK 04-29-2017 [facility] PA[facility] R52 PAIN 04-29-2017 [place] [facility] UNSPECIFIED SERV FOUNDATION R531 WEAKNESS 04-29-2017 [facility] SERV FOUNDATION E039 HYPOTHYROID 02-19-2017 [facility] ISM PHYSICIANS UNSPECIFIED LA M129 ARTHROPATHY 02-19-2017 [facility] PH[facility]IANS UNSPECIFIED LA M3214 GLOMERULAR 02-19-2017 [facility] DISEASE IN PHYSICIANS SYS LUPUS LA ERYTHEMATOS US N390 URINARY 10-28-2016 [facility] TRACT SERV INFECTION FOUNDATION SITE NOT SPECIFIED [id number] NONDSPL FX 10-16-2016 [facility] [facility] METATARSAL IMAGING ASS RT FT SUBSQT FX RTN [id number] UNS 10-16-2016 [facility] FRACTURE RT PHYSICIANS FOOT GROUP SUBSQT ENC FX ROUTINE HEAL [id number] DISPLACED 09-24-2016 [facility] 3RD TECHNOLOGIE METATARSAL S INC RT FT INIT CLOS FX [id number] NONDSPL FX 09-24-2016 [facility] 3RD [facility] METATARSAL INC RT FT INIT ENC CLOS FX [id number] DISPLACED 09-24-2016 [facility] FX 4TH TECHNOLOGIE METATARSAL S INC RT FT INIT CLOS FX [id number] NONDSPL FX 09-24-2016 [facility] METATARSAL INC RT FT INIT ENC CLOS FX [id number] NONDSPL FX 09-04-2016 [facility] [facility] METATARSAL IMAGING ASS RT FT SUBSQT FX RTN [id number] PAIN IN 08-26-2016 [place] RIGHT FOOT MEDICAL IMAGING ASS Z1231 ENCOUNTER 08-20-2016 [place] SCREENING MEDICAL MAMMO MALIG IMAGING ASS NEOPLASM BREAST K449 DIAPHRAGMAT 07-17-2016 [facility] ID IC HERNIA RADIOLOGY W/O OBSTRUCTION OR GANGRENE R197 DIARRHEA 07-17-2016 [facility] UNSPECIFIED N EMERGENCY PHYS M359 SYSTEMIC 04-30-2016 [facility] INVOLVEMENT SERV CONNECTIVE FOUNDATION TISSUE UNS Z5181 ENCOUNTER 04-30-2016 [facility] FOR SERV THERAPEUTIC FOUNDATION DRUG LEVEL MONITORING B351 TINEA 04-16-2016 [facility] UNGUIUM K18962 PAIN IN 04-16-2016 [facility] LEFT FOOT H109 UNSPECIFIED 04-03-2016 [facility] [place] CONJUNCTIVI INTERNAL TIS MEDI L930 DISCOID 02-21-2016 [facility] LUPUS PHYSICIANS ERYTHEMATOS LA US J069 ACUTE UPPER 01-24-2016 [facility] [place] RESPIRATORY INTERNAL INFECTION MEDI UNSPECIFIED A499 BACTERIAL 01-18-2016 [facility] INFECTION SERV UNSPECIFIED FOUNDATION K219 GASTRO-ESOP 12-20-2015 COMM[facility]ITY H REFLUX ANESTH OF DISEASE THE BLUE WITHOUT ESOPHAGITIS M2570 OSTEOPHYTE 12-07-2015 [facility] Y[facility]Y UNSPECIFIED JOINT R799 ABNORMAL 11-27-2015 [facility] FINDING OF [facility]OS[facility] BLOOD INC CHEMISTRY UNSPECIFIED R0609 OTHER FORMS 11-21-2015 [facility] OF DYSPNEA [place] INTERNAL MED K210 GASTRO-ESOP 10-31-2015 ID [facility] HAGEAL SERV REFLUX FOUNDATION DISEASE W/ ESOPHAGITIS R1310 DYSPHAGIA 10-11-2015 COMMUNITY UNSPECIFIED ANESTH OF THE BLUE E860 DEHYDRATION 10-02-2015 [facility] R112 NAUSEA WITH 10-02-2015 [facility] VOMITING [facility]ICIANS, UNSPECIFIED PLLC K589 IRRITABLE 09-18-2015 [facility] BOWEL PHYSICIANS SYNDROME GROUP WITHOUT DIARRHEA M8580 OTH SPEC 08-30-2015 [facility] D/O BONE PHYSICIANS DENSITY LA STRUCTURE UNS SITE Z23 ENCOUNTER 08-29-2015 [facility] FOR [facility]LEY IMMUNIZATIO INTERNAL N MED R109 UNSPECIFIED 08-24-2015 [place] ABDOMINAL MEDICAL PAIN IMAGING ASS R9431 ABNORMAL 08-16-2015 [facility] P N959 UNSPECIFIED 08-15-2015 [facility] INC PERIMENOPAU SYDNI DISORDER Z62474 ENCOUNTER 08-15-2015 [place] FOR MEDICAL SCREENING IMAGING ASS FOR OSTEOPOROSI S Z780 ASYMPTOMATI 08-15-2015 [place] C MEDICAL MENOPAUSAL IMAGING ASS STATE Z803 FAMILY 08-15-2015 [place] HISTORY OF MEDICAL MALIGNANT IMAGING ASS NEOPLASM OF BREAST 3829 UNSPECIFIED 08-07-2015 [facility] OTITIS [facility] MEDIA INTERNAL MEDI 44469 ESOPHAGEAL 08-07-2015 [facility] REFLUX VALLEY INTERNAL MEDI 5853 CHRONIC 07-28-2015 [facility] KIDNEY [facility] DISEASE INC STAGE III (MODERATE) 5990 URINARY 07-28-2015 [facility] TRACT [facility] INFECTION INC SITE NOT SPECIFIED 90192 07-28-2015 [facility] ION SER 5641 IRRITABLE 07-25-2015 [facility] SYNDROME AGENCY 00798 UNS PROLAPS 07-25-2015 [facility] W/O MENTION AGENCY UTERN PROLAPS 61349 UNSPECIFIED 07-25-2015 [facility] ARTHROPATHY AGENCY SITE UNSPECIFIED 7242 LUMBAGO 07-25-2015 [facility] INTERNAL MEDI 43368 FULL 07-25-2015 [facility] INCONTINENC HEALTH E OF FECES AGENCY 64247 UNSPECIFIED 07-25-2015 [facility] URINARY HEALTH INCONTINENC AGENCY E V7610 UNSPECIFIED 07-25-2015 [facility] [place] [facility] SCREENING INTERNAL MEDI V8281 SPECIAL 07-25-2015 [facility] SCREENING VALLEY FOR INTERNAL OSTEOPOROSI MEDI S 7100 SYSTEMIC 07-11-2015 [facility] DEPT ERYTHEMAT[place] [employer] [address] OSTEOARTHRO 07-11-2015 [facility] S UNSPEC HEALTH DEPT 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 GEN/LOC UNSPEC SITE 2449 UNSPECIFIED 05-31-2015 [facility] HYPOTHYRO[place] ISM 62720 OTHER 04-25-2015 ID [facility] CHRONIC SERV PAIN FOUNDATION 86648 UNSPECIFIED 04-19-2015 [facility] [place] 7502 SYNCOPE AND 04-19-2015 [facility] COLLAPSE [facility] [place] [address] NAUSEA 04-19-2015 [facility] ALONE [facility] [place] [address] DIAB W/O 03-30-2015 [facility] COMP TYPE STATES II/UNS NOT MEDICAL STATED SUPPLY UNCNTRL 7140 RHEUMATOID 03-01-2015 [place] [address] UNSPECIFIED 02-22-2015 [facility] ARTHROPATHY INTERNAL MULTIPLE MED SITES 19456 KYPHOSIS 02-06-2015 [facility] POSTURAL 12868 HTN CKD UNS 01-09-2015 [facility] W/CKD SERV STAGE I FOUNDATION THRU STAGE IV/UNS 5829 CHRONIC GLN 01-09-2015 [facility] W/UNSPEC SERV PATHOLOGICA FOUNDATION L LESION KIDNEY 4659 ACUTE URIS 11-29-2014 [place] [facility] OF SERV UNSPECIFIED FOUNDATION SITE 1101 DERMATOPHYT 10-12-2014 [facility] FED OSIS OF NAIL 7038 OTHER 10-12-2014 [facility] FED SPECIFIED DISEASE OF NAIL 7295 PAIN IN 10-12-2014 [facility] FED SOFT TISSUES OF LIMB 46203 OBSTRUCTIVE 09-16-2014 [facility] APNEA MEDICAL EQUIPME 12640 OTHER 09-16-2014 [facility] DYSPNEA AND HOME MEDICAL RESPIRATORY EQUIPME ABNORMALITI ES 4011 ESSENTIAL 08-15-2014 ID [facility] HYPERTENSIO SERV N, BENIGN FOUNDATION 7910 PROTEINURIA 08-15-2014 [facility] 7919 OTHER 08-15-2014 [facility] NONSPECIFIC [facility] FINDING INC EXAMINATION OF URINE 58184 DYSPHAGIA 08-11-2014 [facility] UNSPECIFIED MEM HOSP INC 12214 AFTER-CATAR 07-28-2014 [facility] VISION 42221 NEPHRITIS&N 05-31-2014 [facility] EPHROPATHY- SERV OTH SPEC FOUNDATIO PATH LES DZ CE 7813 LACK OF 03-25-2014 [facility] COORDINATIO HOME N MEDICAL EQUIPME 40804 ANEMIA OF 01-20-2014 ID MEDICAL OTHER SERV CHRONIC FOUNDATIO DISEASE 2724 OTHER AND 12-07-2013 [facility] UNSPECIFIED VALLEY INTERNAL HYPERLIPIDE MED BRIDGETTE 3814 NONSUPPRATV 12-07-2013 [facility] OTITIS [facility] MEDIA NOT INTERNAL SPEC MED ACUT/CHRON 4019 UNSPECIFIED 12-07-2013 [facility] ESSENTIAL [facility] HYPERTENSIO INTERNAL N MED 4720 CHRONIC 12-07-2013 [facility] RHINITIS [facility] INTERNAL MED 7851 PALPITATION 10-20-2013 [facility], S GRAINER [place]ACHINE [place] 57599 HYPERPARATH 10-13-2013 [facility], YROIDISM GRAINER MACHINE UNSPECIFIED [place] [facility] 2689 UNSPECIFIED 10-13-2013 [facility], VITAMIN D GRAINER MACHINE [place]IENC[place] 30141 ANEMIA IN 10-13-2013 [facility], CHRONIC GRAINER MACHINE KIDNEY [facility] DISEASE HOS 3384 CHRONIC 09-27-2013 [facility] PAIN SERV SYNDROME FOUNDATIO 7226 DEGENERATIO 09-27-2013 [place] [facility] N SERV INTERVERTEB FOUNDATIO RAL DISC SITE UNSPEC 44759 OTHER 06-30-2013 [facility], ABNORMAL GRAINER MACHINE FINDING [facility]RE[facility] RADIOLOGICA HOS L EXAM BREAST 07043 LUMP OR 06-25-2013 [place] [facility] IN RADIOLOGY BREAST ASSOCIAT 1103 DERMATOPHYT 06-07-2013 [facility] OSIS OF [place] GROIN AND INTERNAL PERIANAL MED AREA 4555 EXTERNAL 05-05-2013 [facility] JR HEMORRHOIDS SAMIRA WITH OTHER COMPLICATIO N 2722 MIXED 05-04-2013 CRIT[facility] CORNEJO HYPERLIPIDE BRIDGETTE CONSULTING SERV 95409 CORONARY 05-04-2013 CRISTIAN HAYNES MD [facility] [place] [facility] CONSULTING CORONARY SERV ARTERY V7281 PRE-OPERATI 05-04-2013 CRISTIAN BARAJAS MD CARDIOVASCU CONSULTING LAR SERV EXAMINATION 38326 DYSFNCT 04-23-2013 [facility] W/SLEEP HOSPITAL STGES/AROUS AL FRM SLEEP 73563 HYPOXEMIA 04-23-2013 [facility] V8533 BODY MASS 04-23-2013 [facility] [id number] HOSPITAL ADULT 5859 CHRONIC 04-19-2013 [facility], KIDNEY GRAINER MACHINE DISEASE ANDREY [facility]ER UNSPECIFIED HOS 31752 UNSPECIFIED 04-16-2013 [facility] OSTEOPOROSI S 24278 CHEST PAIN 04-16-2013 [facility] UNSPECIFIED CARDIOLOGY CLINIC 4160 PRIMARY 04-14-2013 [facility] HYPERTENSIO HOSPITAL N 87531 PRECORDIAL 04-14-2013 [facility] 15904 OTHER 04-14-2013 [facility] [place] NONSPECIFIC RADIOLOGY ABNORMAL FINDING OF LUNG FIELD 54574 SHORTNESS 03-24-2013 [facility] 7823 EDEMA 03-09-2013 CRISTIAN CORNEJO [place] 79919 OTHER CHEST 03-01-2013 [facility] PAIN [place] INTERNAL MED 09440 OBESITY, 02-27-2013 [facility] UNSPECIFIED EMERGENCY SERVICES 00096 [facility]N [facility] 02-26-2013 [facility] STAGE I-IV/UNS 4556 UNSPEC 02-26-2013 [place] HEMORRHO[facility] ANESTHESIA WITHOUT GROUP PS MENTION COMPLICATIO N 4558 UNSPECIFIED 02-26-2013 [facility] WITH OTHER COMPLICATIO N V641 SURG/OTH 02-26-2013 [place] PROC NOT [facility] BECAUSE CONTRAINDIC ATION 4550 INTERNAL 02-10-2013 [place] JR HEMORRHOIDS SAMIRA WITHOUT MENTION COMP 485 BRONCHOPNEU 01-19-2013 [facility] [place] ORGANISM INTERNAL UNSPECIFIED MED 57566 OTHER 01-19-2013 [facility] [place] FATIGUE INTERNAL MED 4293 CARDIOMEGAL 01-18-2013 [place] [place] Y [facility]IOLOGY ASSOCIAT 89074 OTHER 01-18-2013 [facility] DISEASES OF RADIOLOGY LUNG NOT ASSOCIAT ELSEWHERE CLASSIFIED 6100 SOLITARY 01-13-2013 [facility], CYST OF GRAINER MACHINE [place]AST [place] 10456 UNSPECIFIED 01-06-2013 [facility] INC, ABNORMAL GRAINER MACHINE MAMMOGRAM [place] 38704 DYSPHAGIA 12-09-2012 [facility], DUE TO GRAINER MACHINE CEREBROVASC [facility] ULAR HOS DISEASE 5533 DIAPHRAGMAT 12-09-2012 [facility], EDUARD W/O GRAINER MACHINE MENTION [facility] CO OBSTRUCTION HOS /GANGREN 23508 OTHER 12-08-2012 [facility] [place] SPECIFIED RADIOLOGY DISORDERS ASSOCIAT OF BREAST V1589 OTH SPEC 12-08-2012 [facility], PERS HX GRAINER MACHINE PRESENTING [facility] CO HAZARDS HOS HEALTH OTH V163 FAMILY 12-08-2012 [facility], HISTORY OF GRAINER MACHINE MALIGNANT [facility] CO NEOPLASM OF HOS BREAST V7611 SCREENING 12-08-2012 [facility], MAMMOGRAM GRAINER MACHINE FOR [facility] CO HIGH-RISK HOS PATIENT V7612 OTHER 12-08-2012 [facility] [place] SCREENING RADIOLOGY MAMMOGRAM ASSOCIAT 7213 LUMBOSACRAL 12-01-2012 [facility] SPONDYLOSIS WITHOUT MYELOPATHY 98408 DISPLCMT 12-01-2012 ID [facility] LUMBAR SERV INTERVERT FOUNDATIO DISC W/O MYELOPATHY 22069 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 [facility] OSACRAL INTERVERTEB RAL DISC 56546 OTHER&UNSPE 12-01-2012 [facility] DISORDER OF LUMBAR REGION 21521 DIVERTICULO 11-17-2012 [facility] SIS OF MEM HOSP COLON INC 11204 OTHER 11-17-2012 COMM[facility] SYMPTOMS ANESTH OF INVOLVING THE BLUE DIGESTIVE SYSTEM OTHER V160 FM HX 11-17-2012 [facility] MALIGNANT [facility] NEOPLASM INC GASTROINTES TINAL TRACT V7651 SPECIAL 11-17-2012 [facility] SCREENING [facility] HOS[facility] FOR INC MALIGNANT NEOPLASMS COLON 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 [facility] THESIS 53203 NEPHROTIC 11-05-2012 [facility] SYND W/OTH SERV PATHAL LES FOUNDATIO DZ CLASS ELSW 03888 MUSCLE 11-05-2012 ID [facility] WEAKNESS SERV (GENERALIZE FOUNDATIO D) 4553 EXTERNAL 10-19-2012 KINJ[facility]TOYIN JR HEMORRHOIDS SAMIRA WITHOUT MENTION COMP 7856 ENLARGEMENT 10-05-2012[place] [facility] RADIOLOGY NODES ASSOCIAT 7866 SWELLING, 10-05-2012 [facility], MASS, OR GRAINER MACHINE LUMP IN [facility] CHEST HOS V4576 ACQUIRED 10-05-2012 [facility], ABSENCE OF GRAINER MACHINE ORGAN, LUNG [facility] HOS V4589 OTHER 09-25-2012 [facility], POSTSURGICA GRAINER MACHINE L STATUS [facility] OTHER HOS V571 OTHER 09-24-2012 [facility], PHYSICAL GRAINER MACHINE THERAPY [facility] HOS 4421 ANEURYSM OF 09-21-2012 [facility] ARTERY 49699 OSTEOARTHRO 09-03-2012 ID [facility] S UNSPEC SERV WHETHER FOUNDATIO GEN/LOC SHLDR REGION 58916 OSTEOARTHRO 09-03-2012 [facility] SIS UNSPEC SERV WHETHER FOUNDATIO GEN/LOC LOWER LEG 07779 EFFUSION OF 09-03-2012 ID MED[facility] LOWER LEG SERV JOINT FOUNDATIO 44012 PAIN IN 09-03-2012 [facility], SERV SHOULDER FOUNDATIO REGION 68097 PAIN IN 09-03-2012 [facility], SERV LOWER LEG FOUNDATIO 7249 OTHER 09-03-2012 [facility] UNSPECIFIED SERV BACK FOUNDATIO DISORDER 12472 EXOSTOSIS 09-03-2012 ID [facility]ICAL OF SERV UNSPECIFIED FOUNDATIO SITE 7384 ACQUIRED 09-03-2012 [facility] SPONDYLOLIS SERV THESIS FOUNDATIO 91413 DEHYDRATION 08-04-2012 [facility], GRAINER MACHINE [place] HOS 5589 OTH&UNSPEC 08-04-2012 [facility], NONINFECTIO GRAINER MACHINE US [facility] GASTROENTER HOS ITIS&COLITI S 51806 VOMITING 08-04-2012 [facility], ALONE GRAINER MACHINE [employer] HOS 4580 ORTHOSTATIC 06-19-2012 [facility] HOSPITAL HYPOTENSION 5849 ACUTE 06-19-2012 [facility] KIDNEY [facility]OSPITAL FAILURE UNSPECIFIED 2720 PURE 06-05-2012 [facility], HYPERCHOLES GRAINER MACHINE TEROLEMIA [facility] HOS 586 UNSPECIFIED 04-14-2012 CRISTIAN CORNEJO RENAL [place] SRV 73707 OTH & UNS E 04-08-2012 [facility], COLI GRAINER MACHINE INFECTION [facility] CLASS ELSW HOS UNS SITE 2762 ACIDOSIS 04-08-2012 [facility], GRAINER MACHINE [place] [facility] 2767 HYPERPOTASS 04-08-2012 [facility], EMIA GRAINER MACHINE [facility] HOS 4589 UNSPECIFIED 04-07-2012 [facility] HOSPITAL HYPOTENSION 7862 COUGH 04-07-2012 [facility] [place]IOLOG[facility] ASSOCIAT 25362 ANEURYSM OF 03-23-2012 ID MEDICAL OTHER SERV VISCERAL FOUNDATIO ARTERY 06901 UNSPECIFIED 02-13-2012 [facility] [place] FAMILY MEDICINE P 6256 FEMALE 02-12-2012 S [place] E [address] URGE 02-12-2012 [facility] [place] [address] URINARY 02-12-2012 [place] [address] URGENCY OF 02-12-2012 [facility] NURSE URINATION PRACTITIONE R GR 7336 TIETZES 07-10-2011 [facility], DISEASE GRAINER MACHINE [facility] HOS [id number] UNSPECIFIED 01-03-2011 [facility] PYELONEPHRI TIS 6826 CELLULITIS 01-03-2011 [facility] AND [facility]SC[facility] FAMILY OF [facility] MEDICINE P EXCEPT FOOT 6954 LUPUS 01-03-2011 [facility] ERYTHEMATOS SERV US FOUNDATIO [id number] SWELLING OF 01-03-2011 [facility] SERV FOUNDATIO 7931 NONSPEC 01-03-2011 [facility] FIND RAD SERV OTH EXAM FOUNDATIO BODY STRUCT LUNG FIELD 28458 CRAMP OF 11-06-2010 [facility] [id number] DIARRHEA 11-06-2010 [facility] HOSPITAL [id number] LONG-TERM 11-06-2010 [facility] USE OF HOSPITAL STEROIDS V5869 LONG-TERM 11-06-2010 [facility] (CURRENT) HOSPITAL USE OF OTHER MEDICATIONS [id number] ENCOUNTER 11-06-2010 [facility] FOR HOSPITAL THERAPEUTIC DRUG MONITORING 99853 NAUSEA WITH 10-02-2010 [facility] HOSPITAL V7260 LABORATORY 10-02-2010 AMES EXAMINATION [facility] UNSPECIFIED 4619 ACUTE 09-27-2010 [facility] SINUSITIS, FAMILY UNSPECIFIED MEDICINE P 35266 NUCLEAR 09-05-2010 [facility] SCLEROSIS 3669 UNSPECIFIED 09-04-2010 [facility] 7850 UNSPECIFIED 08-29-2010 [facility] TACHYCARDIA Medications Na ND Rx [...] AT 60 15 15 FA E 1 LA SA 20 LY RA 0 H MG [...] /PAD/UNDG AGENCY AGENCY RMNT INCONT EA CREATININ 30503 KRISSY Bolivar OTHER 7 [facility] SOURCE INC INC URNLS DIP 21403 [facility] REY [facility] STICK/TAB INC INC LET REAGENT AUTO MICROSCOP Y CULTURE 75953 [facility] REY BACTERIAL 7 [facility] INC INC QUANTTATI VE COLONY COUNT URINE COLLECTIO 13163 KRISSY REY N VENOUS 7 [facility] BLOOD INC INC VENIPUNCT URE PROTEIN 86126 KRISSY REY XCPT 7 [facility] REFRACTOM INC INC ETRY SERUM PLASMA/WH L BLD BLOOD 61889 KR[facility]SY REY COUNT 7 [facility] COMPLETE INC INC AUTO&AUTO DIFRNTL WBC RENAL 39455 KRISSY REY FUNCTION 7 [facility] PANEL INC INC PWR E2381 HOVEROUND HOVEROUND PNEUMATIC 7 DRIVE CORPORATI CORPORATI WHEEL ON ON TIRE REPL ONLY EACH PWR E2382 [facility] HOVEROUND TUBE [address]I [address]IVE ON ON WHEEL TIRE REPL EACH RADIOLOGI 80854 [place]KEON C EXAM 7 MEDICAL CHEST 2 [...] ATION SER [place] SANDRA Carrasquillo VAN VISUAL 60550 MINH THAKKAR FIELD XM 7 MEDICAL JR UNI/BI SERV W/INTERP FOUNDATIO EXTENDED N EXAM COMPUTERI [address] MINH THAKKAR ZED 7 MEDICAL JR OPHTHALMI SERV C IMAGING FOUNDATIO RETINA N NONEMERGE A0130 FEDERATED FEDERATED NCY 7 TRANS TRANSPORT TRANSPORT SERVBLUEG ATION: ATION SER NATA SANDRA Carrasquillo VAN DISPBL T4535 [facility]/KATHIE 7 HOME HOME ELD/GUARD HEALTH HEALTH /PAD/UNDG [place] [address] COMBINED COMBINED THYROID 7 PHYSICIAN PHYSICIAN STIMULATI [place] [address] COMBINED COMBINED FREE 7 PHYSICIAN PHYS[place] [address] COMBINED COMBINED TRIIODOTH 7 PHYSICIAN PHYSICIAN YRONINE S LA S LA T3 TOTAL TT3 BLOOD 29884 COMBINED COMBINED COUNT 7 PHYSICIAN PHYSICIAN COMPLETE S LA S LA AUTO&AUTO DIFRNTL WBC LIPID 14196 COMBINED COMBINED PANEL 7 PHYSICIAN PHYSICIAN S LA S LA COMPREHEN 75140 COMBINED COMBINED SIVE 7 PHYSICIAN PHYSICIAN METABOLIC S LA S LA PANEL PWR WC E2366 HOVEROUND HOVEROUND ACSS 7 BATTRY CORPORATI CORPORATI CHRGR 1 ON ON MODE W/ONLY 1 BATTRY URNLS DIP 26221 [facility] 7 HEALTHCAR HEALTHCAR STICK/TAB E E LET [facility] REAGENT AUTO MICROSCOP Y C-REACTIV 82050 [facility] E PROTEIN 7 HEALTHCAR HEALTHCAR E E HOSPITALS HOSPITALS BLOOD 55426 [facility] COUNT 7 HEALTHCAR HEALTHCAR COMPLETE E E AUTO&AUTO [facility] DIFRNTL WBC COLLECTIO 84928 [facility] N VENOUS 7 HEALTHCAR HEALTHCAR BLOOD E E VENIPUNCT [facility]OSP[facility]ALS HOSPITALS URE SEDIMENTA 95990 [facility] TION RATE 7 HEALTHCAR HEALTHCAR RBC E E AUTOMATED [facility] FLUORESCE 87980 [facility] NT 7 HEALTHCAR HEALTHCAR NONNFCT E E AGT ANTB [facility] SCREEN EA ANTIBODY CREATININ 54237 [facility] E OTHER 7 HEALTHCAR HEALTHCAR SOURCE E E HOSPITALS HOSPITALS PROTEIN 36529 [facility] TOTAL 7 HEALTHCAR HEALTHCAR XCPT E E REFRACTOM [facility] ETRY URINE COMPREHEN 26497 [place] SIVE 7 HEALTHCAR HEALTHCAR METABOLIC E E PANEL [facility] DXA BONE 41587 [place] GUILLEN DENSITY 7 MEDICAL STUDY 1/> SERV SITES FOUNDATIO AXIAL N SKEL COMPLEMEN 41497 [facility] T ANTIGEN 7 HEALTHCAR HEALTHCAR EACH E E COMPONENT [facility] NONEMERGE A0130 FEDERATED FEDERATED NCY 7 TRANS TRANSPORT TRANSPORT SERVBLUEG ATION: ATION SER NATA Carrasquillo VAN DISPBL T4535 [facility]/KATHIE 7 HOME HOME ELD/GUARD HEALTH HEALTH /PAD/UNDG AGENCY AGENCY RMNT INCONT EA NONEMERGE A0130 FEDERATED FEDERATED NCY 6 TRANS TRANSPORT TRANSPORT SERVBLUEG ATION: ATION SER NATA Carrasquillo VAN CREATININ 52319 KRISSY Bolivar OTHER 6 [facility] SOURCE INC INC CULTURE 15959 KRISSY REY BACTERIAL 6 [facility] INC INC QUANTTATI VE COLONY COUNT URINE COLLECTIO 58289 KRISSY REY N VENOUS 6 [facility] BLOOD INC INC VENIPUNCT URE BLOOD 70971 KRISSY REY COUNT 6 [facility] COMPLETE INC INC AUTO&AUTO DIFRNTL WBC PROTEIN 92398 KRISSY REY XCPT 6 [facility] REFRACTOM INC INC ETRY SERUM PLASMA/WH L BLD URNLS DIP 72367 KRISSY REY 6 [facility] STICK/TAB INC INC LET REAGENT AUTO MICROSCOP Y SUSCEPTIB 83739 KRISSY REY LTY STDY 6 [facility] ANTIMICRB INC INC IAL MICRO/AGA R DILUTJ RADEX 53626 [place] MCKEON FOOT 6 MEDICAL COMPLETE IMAGING MINIMUM 3 ASS VIEWS CULTURE 04316 KRISSY REY BCT 6 [facility] ISOL&PRSM INC INC PTV ID ISOLATE EA URINE RENAL 28609 KRISSY REY FUNCTION 6 [facility] PANEL INC INC ORTHOTIC 89787 KRISSY REY MGMT&NICK 6 [facility] [place] UXTR INC INC LXTR&/TRN K EA 15 WALKING L4360 ADVANCED ADVANCED BOOT 6 TECHNOLOG TECHNOLOG PNEUMATC IES INC IES INC &/ VACUUM PREFAB CUSTM FIT RADEX 98052 [place] MCKE[place] ALL FOOT 6 MEDICAL COMPLETE IMAGING MINIMUM 3 ASS VIEWS CAST Q4038 [facility] MAD SUPPLIES 6 PHYSICIAN SHORT LEG S GROUP CAST ADULT FIBERGLAS S WALKER E0135 [facility] RICHARDSON FOLDING 6 HOME HOME ADJUSTABL MEDICAL MEDICAL E OR EQUIPME EQUIPME FIXED HEIGHT RADEX 43118 [place] MCKEON ALL FOOT 6 MEDICAL COMPLETE IMAGING MINIMUM 3 ASS VIEWS SCREENING G0202 [place] KENNY 6 MEDICAL ANTWAN MAMMOGRAP IMAGING HY MARIA DEL ROSARIO ASS INCL CAD WHEN PERFORMD COMPUTER- 10576 [place] KENNY AIDED 6 MEDICAL ANTWAN DETECTION IMAGING ASS SCREENING MAMMOGRAP HY NONEMERG A0120 FEDERATED FEDERATED TRNSPRT: 6 MINI-BUS TRANSPORT TRANSPORT MTN ATION SER ATION SER AREA/OTH SYS NONEMERGE A0130 FEDERATED FEDERATED NCY 6 TRANS TRANSPORT TRANSPORT SERVBLUEG ATION: ATION SER NATA WHEELCHAI R VAN RENAL 43013 [facility] FUNCTION 6 Y Y [facility] 71393 [facility] FUNCTION 6 Y Y [facility] COMPLEMEN 38435 [facility] T ANTIGEN 6 Y Y [facility] COMPONENT BLOOD 92983 [facility] COUNT 6 Y Y [facility] AUTOMATED URNLS DIP 02335 [facility] 6 Y Y STICK/TAB [facility] LET [place] [address] [facility] BLOOD/URI 6 Y Y [facility] SEDIMENTA 45229 [facility] TION RATE 6 Y Y RBC [facility] AUTOMATED C-REACTIV 81694 [facility] E PROTEIN 6 Y Y HOSPITAL [facility]OSPITAL COLLECTIO 45420 [facility] N VENOUS 6 Y Y BLOOD [facility] VENIPUNCT URE FLUORESCE 80056 [facility] NT 6 Y Y NONNFCT [facility] AGT ANTB SCREEN EA ANTIBODY CREATININ 01897 [facility] E OTHER 6 Y Y [facility] 25 91476 [facility] HYDROXY 6 Y Y INCLUDES HOSPITAL HOSPITAL FRACTIONS IF PERFORMED CREATINE 80377 [facility] KINASE 6 Y Y TOTAL [facility] [place] [address] [facility] PARATHORM 6 Y Y ONE [facility] PROTEIN 35784 [facility] TOTAL 6 Y Y XCPT [facility] REFRACTOM ETRY URINE CALCIUM 57200 [facility] IONIZED 6 Y Y HOSPITAL HOSPITAL ADLT SZD T4526 [facility] DISPBL 6 HOME HOME INCONT HEALTH HEALTH PROD AGENCY AGENCY UNDWEAR MED EA INCONTINE T4541 [facility] NCE 6 HOME HOME PRODUCT HEALTH HEALTH DISPOSABL [place] [address] [place] TANESHA ABDOMEN & 6 RADIOLOGY RHO PELVIS W/O CONTRAST MATERIAL NONEMERGE A0130 FEDERATED FEDERATED NCY 6 TRANS TRANSPORT TRANSPORT SERVBLUEG ATION: ATION SER NATA SANDRA R VAN DISPBL T4535 [facility]KATHIE 6 HOME HOME ELD/GUARD HEALTH HEALTH /PAD/UNDG AGENCY AGENCY RMNT INCONT EA PROTEIN 08949 [facility]ERS TOTAL 6 Y Y XCPT [facility] REFRACTOM ETRY URINE CREATININ 00976 [facility] E OTHER 6 Y [facility]OSPITAL SEDIMENTA 13037 [facility] TION RATE 6 Y Y RBC [facility] AUTOMATED C-REACTIV 78653 [facility] E PROTEIN 6 Y Y HOSPITAL HOSPITAL URNLS DIP 99272 [facility] 6 Y Y STICK/TAB HOSPITAL HOSPITAL LET REAGENT AUTO MICROSCOP Y FLUORESCE 93678 [facility] NT 6 Y Y NONNFCT [facility] AGT ANTB SCREEN EA ANTIBODY COLLECTIO 65313 [facility] N VENOUS 6 Y Y BLOOD [facility] VENIPUNCT URE BLOOD 64902 [facility] COUNT 6 Y Y COMPLETE [facility] AUTO&AUTO DIFRNTL WBC COMPLEMEN 93346 [facility] T ANTIGEN 6 Y Y EACH HOSPITAL HOSPITAL COMPONENT COMPREHEN 30199 [facility] SIVE 6 Y Y METABOLIC [facility] PANEL NONEMERGE A0130 FEDERATED FEDERATED NCY 6 TRANSPORT TRANSPORT TRANSPORT ATION: ATION SER ATION SER SANDRA AKBAR NONEMERGE A0130 FEDERATED FEDERATED NCY 6 TRANSPORT TRANSPORT TRANSPORT ATION: ATION SER ATION SER SANDRA AKBAR DEBRIDEME 92257 FALLIS TAI NT NAIL 6 YONY KRIS ANY METHOD 6/> URNLS DIP 99231 KRISSY REY 6 [facility] STICK/TAB INC INC LET REAGENT AUTO MICROSCOP Y NONEMERGE A0130 FEDERATED FEDERATED NCY 6 TRANSPORT TRANSPORT TRANSPORT ATION: ATION SER ATION SER SANDRA AKBAR DISPBL T4535 [facility]KATHIE 6 HOME HOME ELD/GUARD HEALTH HEALTH /PAD/UNDG [place] [address] COMBINED COMBINED THYROID 6 PHYSICIAN PHYSICIAN STIMULATI S LA S LA NG HORMONE TSH BLOOD 57659 COMBINED COMBINED COUNT 6 PHYSICIAN PHYSICIAN COMPLETE S LA S LA AUTO&AUTO DIFRNTL WBC COMPREHEN 42872 COMBINED COMBINED SIVE 6 PHYSICIAN PHYSICIAN METABOLIC S LA S LA PANEL NONEMERGE A0130 FEDERATED FEDERATED NCY 6 TRANSPORT TRANSPORT TRANSPORT ATION: ATION SER ATION SER SANDRA AKBAR NONEMERG A0120 FEDERATED FEDERATED TRNSPRT: 6 MINI-BUS TRANSPORT TRANSPORT MTN ATION SER ATION SER AREA/OTH SYS DEBRIDEME 39013 FALLIS TAI NT NAIL 6 YONY KRIS ANY METHOD 6/> REPR/SRVC K0739 HOVEROUND HOVEROUND DME NOT 6 O2 RQR CORPORATI CORPORATI TECH ON ON CMPNT PER 15 MINS NONEMERGE A0130 FEDERATED FEDERATED NCY 6 TRANSPORT TRANSPORT TRANSPORT ATION: ATION SER ATION SER GERALDOGarrett Carrasquillo VAN NONEMERGE A0130 FEDERATED FEDERATED NCY 6 TRANSPORT TRANSPORT TRANSPORT ATION: ATION SER ATION SER WHEELSAMIRAI R VAN RENAL 77632 KRISSY REY FUNCTION 6 [facility] PANEL INC INC CULTURE 42047 KRISSY REY BCT 6 [facility] ISOL&PRSM INC INC PTV ID ISOLATE EA URINE CULTURE 31686 KRISSY REY BACTERIAL 6 [facility] INC INC QUANTTATI VE COLONY COUNT URINE SUSCEPTIB 18766 KRISSY REY LTY STDY 6 [facility] ANTIMICRB INC INC IAL MICRO/AGA R DILUTJ CREATININ 82830 KRISSY REY E OTHER 6 [facility] SOURCE INC INC BLOOD 32599 KRISSY REY COUNT 6 [facility] COMPLETE INC INC AUTO&AUTO DIFRNTL WBC PROTEIN 14516 KRISSY REY XCPT 6 [facility] REFRACTOM INC INC ETRY SERUM PLASMA/WH L BLD COLLECTIO 76250 KRISSY REY N VENOUS 6 [facility] BLOOD INC INC VENIPUNCT URE URNLS DIP 81316 KRISSY REY 6 [facility] STICK/TAB INC INC LET REAGENT AUTO MICROSCOP Y ANES 15265 [facility] 6 ANESTH REE ENDOSCOPY OF THE PROXIMAL BLUE TO DUODENUM DEBRIDEME 63022 FALLAP LUJAN NT NAIL 6 YONY KRIS [...] /PAD/UNDG AGENCY AGENCY RMNT INCONT EA COLLECTIO 73924 KRISSY KRISSY N VENOUS 6 [facility] BLOOD INC INC VENIPUNCT URE BLOOD 25351 KRISSY REY COUNT 6 [facility] COMPLETE INC INC AUTO&AUTO DIFRNTL WBC BASIC 67371 KRISSY KRISSY METABOLIC 6 [facility] PANEL INC INC CALCIUM TOTAL NONEMERG A0120 FEDERATED FEDERATED TRNSPRT: 6 MINI-BUS TRANSPORT TRANSPORT MTN ATION SER ATION SER AREA/OTH SYS COMPREHEN 05980 COMBINED COMBINED SIVE 6 PHYSICIAN PHYSICIAN METABOLIC S LA S LA PANEL BLOOD 54078 COMBINED COMBINED COUNT 6 PHYSICIAN PHYSICIAN COMPLETE S LA S LA AUTO&AUTO DIFRNTL WBC SEDIMENTA 97404 COMBINED COMBINED TION RATE 6 PHYSICIAN PHYSICIAN RBC [place] [address] COMBINED COMBINED THYROID 6 PHYSICIAN PHYSICIAN STIMULATI S LA S LA NG HORMONE TSH PWR E2382 HOVEROUND HOVEROUND TUBE 6 PNEUMATIC CORPORATI CORPORATI DRIVE ON ON WHEEL TIRE REPL EACH R E2391 HOVEROUND HOVEROUND SOLID 6 ANNMARIE CORPORATI CORPORATI TIRE ON ON REPLACEME NT ONLY EACH R E2381 HOVEROUND HOVEROUND PNEUMATIC 6 DRIVE CORPORATI CORPORATI WHEEL ON ON TIRE REPL ONLY EACH [facility] E2366 HOVEROUND HOVEROUND ACSS 6 BATTRY CORPORATI CORPORATI CHRGR 1 ON ON MODE W/ONLY 1 BATTRY PWR E2365 HOVEROUND HOVEROUND WHLCHAIR 6 ACSS U-1 CORPORATI CORPORATI SEALED ON ON LEAD ACID BATTRY EA REPR/SRVC K0739 HOVEROUND HOVEROUND DME NOT 6 O2 RQR CORPORATI CORPORATI TECH ON ON CMPNT PER 15 MINS COLLECTIO 30198 [facility] N VENOUS 5 Y Y BLOOD [facility] VENIPUNCT URE CHROMATOG 94248 [facility] SURYA 5 Y Y [facility] COLUMN 1 ANALYTE KARLENE NONEMERGE A0130 FEDERATED FEDERATED NCY 5 TRANSPORT TRANSPORT TRANSPORT ATION: ATION SER ATION SER WHEELCHAI R VAN NONEMERG A0120 FEDERATED FEDERATED TRNSPRT: 5 MINI-BUS TRANSPORT TRANSPORT MTN ATION SER ATION SER AREA/OTH SYS ANES 41479 [facility] ZIMMER FREDY UPPER GI 5 ANESTH ENDOSCOPY OF THE [place] [address] KRISSY REY AMYLASE 5 [facility] [place] [address] KRISSY REY LIPASE 5 [facility] INC INC COMPREHEN 78551 KRISSY REY SIVE 5 [facility] [address] KRISSY REY INFUSION 5 [facility] THERAPY INC INC PROPHYLAX IS/DX EA HOUR THER 92425 KRISSY REY PROPH/DX 5 [facility] NJX EA INC INC SEQL [place] P[place] SBST/[place] [address] KRISSY REY INFUSION 5 [facility] THERAPY/P INC INC ROPHYLAXI S /DX 1ST TO 1 HR THERAPEUT 02794 KRISSY REY IC 5 [facility] INJECTION INC INC IV PUSH EACH NEW DRUG BLOOD 09634 KRISSY REY COUNT 5 [facility] COMPLETE INC INC AUTO&AUTO DIFRNTL WBC INJECTION J2405 KRISSY REY 5 [facility] ONDANSETR INC INC ON HCL PER 1 MG DISPBL T4535 [facility]ATH[facility] 5 HOME HOME ELD/GUARD HEALTH HEALTH /PAD/UNDG AGENCY AGENCY RMNT INCONT EA ADLT SZD T4526 [facility] 5 HOME HOME INCONT HEALTH HEALTH PROD [place] [address] COMBINED COMBINED THYROID 5 PHYSICIAN PHYSICIAN STIMULATI S LA S LA NG HORMONE TSH BLOOD 59293 COMBINED COMBINED COUNT 5 PHYSICIAN PHYSICIAN COMPLETE S LA S LA AUTO&AUTO DIFRNTL WBC COMPREHEN 28997 COMBINED COMBINED SIVE 5 PHYSICIAN PHYSICIAN METABOLIC S LA S LA PANEL ADMINISTR G0008 [facility] ATION OF 5 VALLEY TIMOTHY INFLUENZA INTERNAL VIRUS MED VACCINE INFLUENZA Q2038 [facility] VACC 5 VALLEY TIMOTHY SPLIT INTERNAL VIRUS 3 MED YRS & > IM FLUZONE NONEMERGE A0130 FEDERATED FEDERATED NCY 5 TRANSPORT TRANSPORT TRANSPORT ATION: ATION SER [place]ION [place] [address] [facility] ALL TRACT UPR 5 MEDICAL W/SM INT IMAGING W/MULT ASS SERIAL IMAGES RADEX 14088 KRISSY REY ESOPHAGUS 5 [facility] INC INC ECG 24670 KRISSY GASTON JR ROUTINE 5 [facility] W/LEAST P 12 LDS I&R ONLY ECG 08882 KRISSY REY ROUTINE 5 [facility] MEM [...] DEL ROSARIO INCL CAD WHEN PERFORMD COMPREHEN 97622 KRISSY REY SIVE 5 [facility] METABOLIC INC INC PANEL DXA BONE 43950 KRISSY REY DENSITY 5 [facility] STUDY 1/> INC INC SITES AXIAL SKEL RENAL 06617 KRISSY REY FUNCTION 5 [facility] PANEL INC INC COMPUTER- 00589 KRISSY REY AIDED 5 [facility] DETECTION INC INC SCREENING MAMMOGRAP HY BLOOD 65015 KRISSY KRISSY COUNT 5 [facility] COMPLETE INC INC AUTO&AUTO DIFRNTL WBC COLLECTIO 81098 KRISSY REY N VENOUS 5 [facility] BLOOD INC INC VENIPUNCT URE URNLS DIP 61219 KRISSY REY 5 [facility] STICK/TAB INC INC LET REAGENT AUTO MICROSCOP Y NONEMERGE A0130 FEDERATED FEDERATED NCY 5 TRANSPORT TRANSPORT TRANSPORT ATION: ATION SER ATION SER WHEELSAMIRAI R VAN NONEMERG A0120 FEDERATED FEDERATED TRNSPRT: 5 MINI-BUS TRANSPORT TRANSPORT MTN ATION SER ATION SER AREA/OTH SYS URNLS DIP 54559 KRISSY KRISSY 5 [facility] STICK/TAB INC INC LET REAGENT AUTO MICROSCOP Y CULTURE 27701 KRISSY REY BACTERIAL 5 [facility] INC INC QUANTTATI VE COLONY COUNT URINE CULTURE 60999 KRISSY REY BCT 5 [facility] ISOL&PRSM INC INC PTV ID ISOLATE EA URINE SUSCEPTIB 85049 KRISSY REY LTY STDY 5 [facility] ANTIMICRB INC INC IAL MICRO/AGA R DILUTJ INCONTINE T4541 [facility] NCE 5 HOME HOME PRODUCT HEALTH HEALTH DISPOSABL AGENCY AGENCY E UNDPAD LARGE EA URNLS DIP 48035 KRISSY KRISSY 5 [facility] STICK/TAB INC INC LET REAGENT AUTO MICROSCOP Y COLLECTIO 59174 KRISSY Cook VENOUS 5 [facility] BLOOD INC INC VENIPUNCT URE CULTURE 29895 KRISSY REY BACTERIAL 5 [facility] INC INC QUANTTATI VE COLONY COUNT URINE PROTEIN 29634 KRISSY REY XCPT 5 [facility] REFRACTOM INC INC ETRY SERUM PLASMA/WH L BLD CREATININ 94860 KRISSY Bolivar OTHER 5 [facility] SOURCE INC INC SUSCEPTIB 85001 KRISSY REY LTY STDY 5 [facility] ANTIMICRB INC INC IAL MICRO/AGA R DILUTJ CULTURE 85994 KRISSY REY BCT 5 [facility] ISOL&PRSM INC INC PTV ID ISOLATE EA URINE BLOOD 42874 KRISSY REY COUNT 5 [facility] COMPLETE INC INC AUTO&AUTO DIFRNTL WBC RENAL 46740 KRISSY REY FUNCTION 5 [facility] PANEL INC INC NONEMERG A0120 FEDERATED FEDERATED TRNSPRT: 5 MINI-BUS TRANSPORT TRANSPORT MTN ATION SER ATION SER ARE[place] [address] COMBINED COMBINED THYROID 5 PHYSICIAN PHYSICIAN STIMULATI S LA S LA NG HORMONE TSH DISPBL T4535 [facility]/KATHIE 5 HOME HOME ELD/GUARD HEALTH HEALTH /PAD/UNDG AGENCY AGENCY RMNT INCONT EA INCONTINE T4541 [facility] NCE 5 HOME HOME PRODUCT HEALTH HEALTH DISPOSABL AGENCY AGENCY E UNDPAD LARGE EA NONEMERGE A0130 FEDERATED FEDERATED NCY 5 TRANSPORT TRANSPORT TRANSPORT ATION: ATION SER ATION SER [facility] VAN AMB A0427 ANDREY BALDERAS SERVICE [address] [place] [address] ALS AMBULANCE AMBULANCE EMERGENCY SE SE TRANSPORT LEVEL 1 [place] [address] KRISSY REY INFUSION 5 [facility] THERAPY INC INC PROPHYLAX IS/DX EA HOUR GROUND A0425 ANDREY BALDERAS MILEAGE [address] [place] [address] PER AMBULANCE AMBULANCE STATUTE SE SE MILE BLOOD 17484 KRISSY REY COUNT 5 [facility] COMPLETE INC INC AUTO&AUTO DIFRNTL WBC ECG 99272 KRISSY REY ROUTINE 5 [facility] ECG INC INC W/LEAST 12 LDS TRCG ONLY W/O [place] [address] KRISSY REY INFUSION 5 [facility] THERAPY/P INC INC ROPHYLAXI S /DX 1ST TO 1 HR COMPREHEN 10490 KRISSY REY SIVE 5 [facility] METABOLIC INC INC PANEL ECG 78699 KRISSY CORBIN ROUTINE 5 [facility] W/LEAST P 12 LDS I&R ONLY BLD GLU A4253 [place] TEST/REAG 5 STATES STATES T [facility] BLD SUPPLY SUPPLY GLU MON-50 LANCETS A4259 [place] PER BOX 5 STATES STATES OF MEDICAL MEDICAL SUPPLY SUPPLY DISPBL T4535 [facility]/KATHIE 5 HOME HOME ELD/GUARD HEALTH HEALTH /PAD/UNDG AGENCY AGENCY RMNT INCONT EA SEDIMENTA 68567 COMBINED COMBINED TION RATE 5 PHYSICIAN PHYSICIAN RBC [place] [address] COMBINED COMBINED THYROID 5 PHYSICIAN PHYSICIAN STIMULATI S LA S LA NG HORMONE TSH BLOOD 58697 COMBINED COMBINED COUNT 5 PHYSICIAN PHYSICIAN COMPLETE S LA S LA AUTO&AUTO DIFRNTL WBC COMPREHEN 84359 COMBINED COMBINED SIVE 5 PHYSICIAN PHYSICIAN METABOLIC S LA S LA PANEL NONEMERGE A0130 FEDERATED FEDERATED NCY 5 TRANSPORT TRANSPORT TRANSPORT ATION: ATION SER ATION SER SANDRA Carrasquillo VAN OTHER K0108 HOVEROUND HOVEROUND ACCESSORI 5 ES CORPORATI CORPORATI ON ON PWR E2365 HOVEROUND HOVEROUND WHLCHAIR 5 ACSS U-1 CORPORATI CORPORATI SEALED ON ON LEAD ACID BATTRY EA BLOOD 76972 KRISSY REY COUNT 5 [facility] COMPLETE INC INC AUTO&AUTO DIFRNTL WBC RENAL 96893 KRISSY REY FUNCTION 5 [facility] PANEL INC INC HEPATIC 37758 KRISSY REY FUNCTION 5 [facility] PANEL INC INC DNA 33550 KRISSY REY ANTIBODY 5 [facility] INC INC UBLE STRANDED COLLECTIO 26099 KRISSY REY N VENOUS 5 [facility] BLOOD INC INC VENIPUNCT URE NONEMERGE A0130 FEDERATED FEDERATED NCY 5 TRANSPORT TRANSPORT TRANSPORT ATION: ATION SER ATION SER SANDRA Carrasquillo VAN NORMAL A4256 [place] DOWELL LOW AND 5 STATES STATES HIGH MEDICAL MEDICAL CALIBRATO SUPPLY SUPPLY R SOLUTION/ CHIPS LANCETS A4259 [place] PER BOX 5 STATES STATES OF [facility] MEDICAL MEDICAL SUPPLY SUPPLY BLD GLU A4253 [facility] TEST/REAG 5 STATES STATES T [facility] BLD SUPPLY SUPPLY GLU MON-50 SPRING-PO A4258 [facility] [address] [facility] DEVICE MEDICAL MEDICAL FOR SUPPLY SUPPLY LANCET [...] PROD AGENCY AGENCY UNDWEAR MED EA DEBRIDEME 38150 LAUSE FED LAUSE FED NT NAIL 4 ANY METHOD 6/> NONEMERGE A0130 FEDERATED FEDERATED NCY 4 TRANSPORT TRANSPORT TRANSPORT ATION: ATION SER ATION SER SANDRA Carrasquillo VAN NASL A7034 [facility] R[facility] INTRFCE 4 HOME HOME POS [facility] PRSS EQUIPME EQUIPME DEVC W/[place] [address] COMBINED COMBINED THYROID 4 PHYSICIAN PHYSICIAN STIMULATI S LA S LA NG HORMONE TSH COMPREHEN 29675 COMBINED COMBINED SIVE 4 PHYSICIAN PHYSICIAN METABOLIC S LA S LA PANEL BLOOD 80857 COMBINED COMBINED COUNT 4 PHYSICIAN PHYSICIAN COMPLETE S LA S LA AUTO&AUTO DIFRNTL WBC NONEMERG A0120 FEDERATED FEDERATED TRNSPRT: 4 TRANS MINI-BUS TRANSPORT SERVBLUEG MTN ATION SER NATA AREA/OTH SYS ADLT SZD T4526 [facility] DISPBL 4 HOME HOME INCONT HEALTH HEALTH PROD AGENCY AGENCY UNDWEAR MED EA 25 35056 KRISSY REY HYDROXY 4 [facility] INCLUDES [place] [address] KRISSY REY PARATHORM 4 [facility] ONE INC INC CREATININ 31326 KRISSY REY E OTHER 4 [facility] SOURCE INC INC URNLS DIP 59499 KRISSY REY 4 [facility] STICK/TAB INC INC LET REAGENT AUTO MICROSCOP Y CULTURE 88836 [facility] BACTERIAL 4 [facility] INC INC QUANTTATI VE COLONY COUNT URINE PROTEIN 36151 [facility] XCPT 4 [facility] REFRACTOM INC INC ETRY SERUM PLASMA/WH L BLD BLOOD 14028 [facility] COUNT 4 [facility] COMPLETE INC INC AUTO&AUTO DIFRNTL WBC CULTURE 48558 [facility] BCT [facility] ISOL&PRSM INC INC PTV ID ISOLATE EA URINE COLLECTIO 30352 [facility] N VENOUS 4 [facility] BLOOD INC INC VENIPUNCT URE SUSCEPTIB 85551 [facility] LTY STDY 4 [facility] ANTIMICRB INC INC IAL MICRO/AGA R DILUTJ COMPREHEN 86688 [facility] SIVE 4 [facility] METABOLIC INC INC PANEL NONEMERG A0120 FEDERATED FEDERATED TRNSPRT: 4 TRANS [facility]OTH SYS RADEX 45569 [facility] UPPER GI 4 [facility] W/WO INC INC GLUCAGON/ DELAY IMAGES W/KUB DETERMINA 02393 FARIDA GARCIA TION [facility] 27384 F[facility]IDA WALKER [facility] 4 VISION XM&EVAL CENTER COMPRHNSV ESTAB PT 1/> NONEMERG A0120 FEDERATED FEDERATED TRNSPRT: 4 TRANS [facility]/OT SYS DISPBL [id number] [facility] 4 [...] ATION: ATION SER NATA AKBAR URNLS DIP 21171 [facility] STICK/TAB INC INC LET REAGENT AUTO MICROSCOP Y PROTEIN 75634 [facility] XCPT 4 [facility] REFRACTOM INC INC ETRY SERUM PLASMA/WH L BLD COLLECTIO 69792 [facility] N VENOUS 4 [facility] BLOOD INC INC VENIPUNCT URE CREATININ 68031 [facility] E OTHER 4 [facility] SOURCE INC INC BLOOD 25132 [facility] COUNT 4 [facility] COMPLETE INC INC AUTO&AUTO DIFRNTL WBC RENAL 09282 [facility] FUNCTION 4 [facility] MEM [...] ATERNESTINA SER ATERNESTINA SER AREA/OTH SYS DNA 40364 [facility], [facility], ANTIBODY 4 GRAINER MACHINE GRAINER MACHINE [place]/DO ANDREY BALDERAS UBLE [facility]OS STRANDED CULTURE 55731 [employer], [employer], BACTERIAL 4 GRAINER MACHINE GRAINER MACHINE ANDREY BALDERAS QUANTTATI CO HOS CO HOS VE COLONY COUNT URINE CREATININ 04387 [employer], [employer], E OTHER 4 GRAINER MACHINE GRAINER MACHINE SOURCE ANDREY BALDERAS CO HOS CO HOS URNLS DIP 18407 [employer], [employer], 4 GRAINER MACHINE GRAINER MACHINE STICK/TAB ANDREY BALDERAS LET RGNT CO HOS CO HOS AUTO W/O MICROSCOP Y 25 24832 [employer], [employer], HYDROXY 4 GRAINER MACHINE GRAINER MACHINE INCLUDES ANDREY BALDERAS FRACTIONS CO HOS CO HOS IF PERFORMED PROTEIN 20090 [employer], [employer], TOTAL 4 GRAINER MACHINE GRAINER MACHINE XCPT ANDREY BALDERAS REFRACTOM CO HOS CO HOS ETRY URINE URINALYSI 17547 [employer], [employer], S 4 GRAINER MACHINE GRAINER MACHINE QUAL/SEMI ANDREYlAmaz BALDERAS QUANT CO HOS CO HOS EXCEPT IMMUNOASS AYS RENAL 99765 [employer], [employer], FUNCTION 4 GRAINER MACHINE GRAINER MACHINE PANEL ANDREY BALDERAS CO HOS CO HOS BLOOD 68501 [employer], [employer], COUNT 4 GRAINER MACHINE GRAINER MACHINE COMPLETE ANDREY BALDERAS AUTO&AUTO CO HOS CO HOS DIFRNTL WBC CULTURE 67892 [employer], [employer], BCT 4 GRAINER MACHINE GRAINER MACHINE ISOL&PRSM ANDREY ANDREY PTV ID CO HOS CO HOS ISOLATE EA URINE SUSCEPTBI 05676 [employer], [employer], LTY STDY 4 GRAINER MACHINE GRAINER MACHINE ANTIMICRB ANDREY BALDERAS IAL AGNT CO HOS CO HOS AGAR DILUTJ COMPLEMEN 15330 [employer], [employer], T ANTIGEN 4 GRAINER MACHINE GRAINER MACHINE EACH ANDREY BALDERAS COMPONENT CO HOS CO HOS ADLT SZD T4526 [facility] DIS[facility] 4 HOME HOME INCONT HEALTH HEALTH PROD AGENCY AGENCY UNDWEAR MED EA CONTINUOU E0601 [facility] S 4 HOME HOME POSITIVE MEDICAL MEDICAL AIRWAY EQUIPME EQUIPME PRESSURE DEVICE NONEMERG A0120 FEDERATED FEDERATED TRNSPRT: 4 MINI-BUS TRANSPORT [facility] CONTINUOU E0601 [facility] BAI S 4 HOME HOME POSITIVE MEDICAL MEDICAL AIRWAY EQUIPME EQUIPME PRESSURE DEVICE NONEMERG A0120 FEDERATED FEDERATED TRNSPRT: 4 MINI-BUS TRANSPORT [facility] S[facility] ADLT SZD T4526 [facility] DIS[facility]BL 4 HOME HOME INCONT HEALTH HEALTH PROD AGENCY AGENCY UNDWEAR MED EA DISPBL T4535 [facility] LINER/KAHTIE 4 HOME HOME ELD/GUARD HEALTH HEALTH /PAD/UNDG AGENCY AGENCY RMNT INCONT EA INCONTINE T4541 [facility] NCE 4 HOME HOME PRODUCT HEALTH HEALTH DISPOSABL AGENCY AGENCY E UNDPAD LARGE EA ECHO 70570 [facility] R-T 3 Y Y 2D [facility] W/WOM-MOD E COMPL SPEC&COLR D PWR WC K0823 HOVEROUND HOVEROUND GRP 2 STD 3 CAPTAINS CORPORATI CORPORATI CHAIR PT ON ON TO &=300 LBS NONEMERG A0120 FEDERATED FEDERATED TRNSPRT: 3 [facility]BUS [facility] CONTINUOU E0601 [facility] BAI S 3 HOME HOME POSITIVE MEDICAL MEDICAL AIRWAY EQUIPME EQUIPME PRESSURE DEVICE NONEMERG A0120 FEDERATED FEDERATED TRNSPRT: 3 MINI-BUS TRANSPORT TRANSP[facility]/OT SYS EXTERNAL 34020 [employer], [employer], ECG 3 GRAINER MACHINE GRAINER MACHINE SCANNING ANDREY BALDERAS ANALYSIS CO HOS CO HOS REPORT XTRNL ECG 76250 [employer], [facility] INC, & 48 HR 3 GRAINER MACHINE GRAINER MACHINE RECORDING ANDREY BALDERAS CO HOS CO HOS COMPREHEN 00191 [facility] INC, [facility] INC, SIVE 3 GRAINER MACHINE GRAINER MACHINE METABOLIC ANDREY BALDERAS PANEL CO HOS CO HOS NONEMERG A0120 FEDERATED FEDERATED TRNSPRT: 3 MINI-BUS TRANSPORT TRANSPORT [facility]/OT SYS COMPLEMEN 14691 [facility] INC, [facility] INC, T TOTAL 3 GRAINER MACHINE GRAINER MACHINE HEMOLYTIC ANDREY BALDERAS CO HOS CO HOS BLOOD 57806 [facility] INC, [facility] INC, COUNT 3 GRAINER MACHINE GRAINER MACHINE COMPLETE ANDREY BALDERAS AUTO&AUTO CO HOS CO HOS DIFRNTL WBC DNA 59251 [employer], [facility] INC, ANTIBODY 3 GRAINER MACHINE GRAINER MACHINE [place] [facility]DO ANDREY BALDERAS UBLE CO HOS CO HOS STRANDED COMPLEMEN 30814 [employer], [employer] INC, T ANTIGEN 3 GRAINER MACHINE GRAINER MACHINE EACH ANDREY BALDERAS COMPONENT CO HOS CO HOS URINALYSI 72067 [facility] INC, [facility] INC, S 3 GRAINER MACHINE GRAINER MACHINE QUAL/SEMI ANDREY BALDERAS QUANT CO HOS CO HOS EXCEPT IMMUNOASS AYS PROTEIN 59942 [employer] INC, MHC INC, TOTAL 3 GRAINER MACHINE GRAINER MACHINE XCPT ANDREY BALDERAS REFRACTOM [place] [address] [facility] Hab Housing, [facility] INC, PHOSPHORU 3 GRAINER MACHINE GRAINER MACHINE S ANDREY ANDREY INORGANIC CO HOS CO HOS 25 67187 [facility], [facility] INC, HYDROXY 3 GRAINER MACHINE GRAINER MACHINE INCLUDES ANDREY RIVEROOLAS FRACTIONS [place] [address] [facility] Hab Housing, [facility] INC, PARATHORM 3 GRAINER MACHINE GRAINER MACHINE ONE ANDREY ANDREY CO HOS CO HOS URNLS DIP 87384 [facility] Hab Housing, [facility] INC, 3 GRAINER MACHINE GRAINER MACHINE STICK/TAB ANDREY BALDERAS LET RGNT CO HOS CO HOS AUTO W/O MICROSCOP Y CREATININ 04917 [facility] Hab Housing, [facility] INC, E OTHER 3 GRAINER MACHINE GRAINER MACHINE SOURCE ANDREY ANDREY CO HOS CO HOS [...] MEDICAL AIRWAY EQUIPME EQUIPME PRESSURE DEVICE COMPREHEN 50324 [facility] Hab Housing, [employer] INC, SIVE 3 GRAINER MACHINE GRAINER MACHINE METABOLIC ANDREY HANSENS PANEL CO HOS CO HOS LIPID 97246 [facility] Hab Housing, [employer] INC, PANEL 3 GRAINER MACHINE GRAINER MACHINE [place]RE[place] [address] [employer], [employer], THYROID 3 GRAINER MACHINE GRAINER MACHINE STIMULATI ANDREY HANSENS NG CO HOS CO HOS HORMONE TSH SEDIMENTA 86141 [employer], [employer] INC, TION RATE 3 GRAINER MACHINE GRAINER MACHINE RBC ANDREY BALDERAS NON-AUTOM CO HOS CO [...] AIRWAY EQUIPME EQUIPME PRESSURE DEVICE US BREAST 20779 [facility] INC, [facility] INC, REAL 3 GRAINER MACHINE GRAINER MACHINE TIME ANDREY BALDERAS W/IMAGE CO HOS CO HOS DOCUMENTA TION DEBRIDEME 42963 LAUSE FED LAUSE FED NT NAIL 3 ANY METHOD 6/> PWR K0823 HOVEROUND HOVEROUND GRP 2 STD 3 CAPTAINS CORPORATI CORPORATI CHAIR PT ON ON TO &=300 LBS HOS BED E0260 [facility] BAI SEMI-ELEC 3 HOME HOME W/ANY MEDICAL MEDICAL TYPE SIDE EQUIPME EQUIPME RAIL W/MATTRSS CONTINUOU E0601 [facility] BAI S 3 HOME HOME POSITIVE MEDICAL MEDICAL AIRWAY EQUIPME EQUIPME PRESSURE DEVICE MAMMOGRAP 43156 [facility] HY 3 EIDER DEE UNILATERA RADIOLOGY L ASSOCIAT US BREAST 18465 [facility] REAL 3 EIDER DEE TIME RADIOLOGY W/IMAGE ASSOCIAT DOCUMENTA TION NASL A7034 [facility] BAI INTRFCE 3 HOME HOME POS [facility]WAY [facility] MEDICAL PRSS EQUIPME EQUIPME DEVC W/WO HEAD STRAP RENAL 49978 [employer], FUNCTION 3 GRAINER MACHINE GRAINER MACHINE PANEL ANDREY ANDREY CO HOS CO HOS BLOOD 74944 [facility] INC, COUNT 3 GRAINER MACHINE GRAINER MACHINE COMPLETE ANDREY ANDREY AUTO&AUTO CO HOS CO HOS DIFRNTL WBC PROTEIN 80140 [employer], TOTAL 3 GRAINER MACHINE GRAINER MACHINE XCPT ANDREY ANDREY REFRACTOM CO HOS CO HOS ETRY URINE 25 84577 [facility] INC, HYDROXY 3 GRAINER MACHINE GRAINER MACHINE INCLUDES ANDREY RIVEROOLAS FRACTIONS CO HOS CO HOS IF PERFORMED CREATININ 63224 [employer], [employer], E OTHER 3 GRAINER MACHINE GRAINER MACHINE SOURCE ANDREY ANDREY CO HOS CO HOS [...] AGENCY AGENCY E UNDPAD LARGE EA SEDIMENTA 24621 COMBINED COMBINED TION RATE 3 PHYSICIAN PHYSICIAN [place] [address] COMBINED COMBINED THYROID 3 PHYSICIAN PHYSICIAN STIMULATI S LA S LA NG HORMONE TSH LIPID 72249 COMBINED COMBINED PANEL 3 PHYSICIAN PHYSICIAN S LA S LA BLOOD 11150 COMBINED COMBINED COUNT 3 PHYSICIAN PHYSICIAN COMPLETE S LA S LA AUTO&AUTO DIFRNTL WBC COLLECTIO 18039 [facility] N VENOUS 3 VALLEY TIMOTHY BLOOD INTERNAL VENIPUNCT MED URE PWR WC K0823 HOVEROUND HOVEROUND GRP 2 STD 3 CAPTAINS CORPORATI CORPORATI CHAIR PT ON ON TO &=300 LBS POLYSOM 85787 CRISTIAN CORNEJO CORNEJO CRISTIAN 6/>YRS 3 SLEEP CONSULTIN W/CPAP G SRV 4/> ADDL IKER ATTND HOS BED E0260 [facility] BAI SEMI-ELEC 3 HOME HOME W/ANY MEDICAL MEDICAL TYPE SIDE EQUIPME EQUIPME RAIL W/MATTRSS BASIC 14912 [employer], [employer], METABOLIC 3 GRAINER MACHINE GRAINER MACHINE PANEL ANDREY ANDREY CALCIUM CO HOS CO HOS TOTAL CREATININ 26569 [employer], [employer] INC, E OTHER 3 GRAINER MACHINE GRAINER MACHINE SOURCE ANDREY ANDREY CO HOS CO HOS URNLS DIP 79145 [employer], [employer], 3 GRAINER MACHINE GRAINER MACHINE STICK/TAB ANDREY BALDERAS LET RGNT CO HOS CO HOS AUTO W/O MICROSCOP Y PROTEIN 16191 [employer], [employer], TOTAL 3 GRAINER MACHINE GRAINER MACHINE XCPT ANDREY ANDREY REFRACTOM CO HOS CO HOS ETRY URINE URINALYSI 04681 [employer], [employer] INC, S 3 GRAINER MACHINE GRAINER MACHINE QUAL/SEMI ANDREY ANDREY QUANT CO HOS CO HOS EXCEPT IMMUNOASS AYS CONTINUOU E0601 [facility] BAI S 3 HOME HOME POSITIVE MEDICAL MEDICAL AIRWAY EQUIPME EQUIPME PRESSURE DEVICE POLYSOM 23168 [facility] 6/>YRS 3 [facility] W/CPAP 4/> ADDL IKER ATTND BASIC 04059 [employer], [employer] INC, METABOLIC 3 GRAINER MACHINE GRAINER MACHINE PANEL ANDREY ANDREY CALCIUM CO HOS CO HOS TOTAL INJECTION J3[address] CITRATE 0.1 MG CATH PLMT 43676 [facility] L HRT & 3 [facility] ARTS W/NJX & ANGIO IMG S&I INJECTION J2001 [address] LIDOCAINE HCL INTRAVENO US INFUS 10 MG CLOSURE C1760 [facility] DEVICE [address] [place] [address] VASCULAR INTRDUCR/ C1894 [facility] SHEATH [address] [place] [address] NOT GUID INTRACARD EP NON-LASR RADIOLOGI 56998 [facility] [place] SCAL[facility] IRIS C EXAM 3 RADIOLOGY CHEST 2 VIEWS FRONTAL&L ATERAL BLOOD 59187 [facility] COUNT 3 [facility] AUTOMATED BASIC 98441 [facility] METABOLIC 3 [facility] CALCIUM TOTAL COLLECTIO 02178 [facility] N VENOUS 3 [facility] VENIPUNCT URE PWR WC K0823 HOVEROUND [...] W/POS EQUIPME EQUIPME ARWAY PRESSURE DEVICE PULMONARY 72849 CHRISTOPHER WHITE 3 [facility] IMAGING PARTICULA TE TECHNETIU A9539 CHRISTOPHER Robertson TC-99M 3 [facility] DX UP TO 25 MCI TECHNETIU A9540 CHRISTOPHER Robertson TC-99M 3 [facility] STDY DOSE UP TO 10 MCI ECG 83983 CRISTIAN CORNEJO CORNEJO CRISTIAN ROUTINE 3 MD ECG CONSULTIN W/LEAST G SRV 12 LDS W/I&R POLYSOM 41971 CRISTIAN CORNEJO CORNEJO CRISTIAN 6/>YRS 3 MD SLEEP 4/> CONSULTIN ADDL G SRV IKER ATTND POLYSOM 21506 CHRISTOPHER WHITE 6/>YRS 3 [facility] SLEEP 4/> [facility] ADDL IKER ATTND ECHO 27657 CRISTIAN CORNEJO CORNEJO CRISTIAN TTHRC R-T 3 2D CONSULTIN W/WOM-MOD G SRV E COMPL SPEC&COLR D DUP-SCAN 59990 CRISTIAN CORNEJO CORNEJO CRISTIAN XTR VEINS 3 COMPLETE CONSULTIN G SRV BILATERAL STUDY MYOCARDIA 47299 EILEEN Bran SPECT 3 MEDICAL ANTWAN SINGLE IMAGING STUDY AT ASS REST OR STRESS INJECTION J2785 KRISSY REY [address] [facility] HOSP REGADENOS INC INC ON 0.1 MG CV STRS 91837 [facility] TST 3 PHYSICIAN XERS&/OR S GROUP RX CONT ECG W/O I&R CV STRS 06254 KRISSY REY TST [address] [facility] HOSP XERS&/OR INC INC RX CONT ECG TRCG ONLY MYOCARDIA 73653 KRISSY REY L SPECT [address] [facility] HOSP MULTIPLE INC INC STUDIES CV STRS 36122 KRISSY CORBIN TST 3 [facility]&/OR HOSPITAL RX CONT P ECG I&R ONLY TECHNETIU A9500 KRISSY REY M TC-99M 3 [facility] HOSP SESTAMIBI INC INC DX PER STUDY DOSE OBSERVATI 24091 NAVID MATOS ON CARE 3 EMERGENCY KAMILA DISCHARGE SERVICES MANAGEMEN T HOS BED E0260 [facility] BAI SEMI-ELEC 3 HOME HOME W/ANY MEDICAL MEDICAL TYPE SIDE EQUIPME EQUIPME RAIL W/MATTRSS BLOOD 33743 CHRISTOPHER WHITE COUNT 3 [facility] AUTOMATED ECG 36253 NAVID MATOS ROUTINE 3 EMERGENCY KAMILA ECG SERVICES W/LEAST 12 LDS I&R ONLY ECG 20533 CHRISTOPHER WHIET ROUTINE 3 [facility] W/LEAST 12 LDS TRCG ONLY W/O I&R LIPID 31637 CHRISTOPHER WHITE PANEL 3 [facility] PWR WC K0823 HOVEROUND HOVEROUND GRP 2 STD 3 CAPTAINS CORPORATI CORPORATI CHAIR PT ON ON TO &=300 LBS BASIC 64012 CHRISTOPHER HARRELLJAVONELVI METABOLIC 3 [facility] CALCIUM TOTAL COLLECTIO 38196 CHRISTOPHER WHITE N VENOUS 3 [facility] [place] [address] [facility] WHITE TROPONIN 3 [facility] KETAN COLLECTIO 89948 CHRISTOPHER WHITE N VENOUS [address] [place] [address] [place] [address] CHRISTOPHER WHITE TROPONIN 3 [facility] G0378 CHRISTOPHER WHITE OBSERVATI [address] [place] [address] HOSPITAL SERVICE PER HOUR ANESTHESI 19453 [place] RONY Cruz 3 ANESTHESI CAM ANORECTAL A GROUP PS PROCEDURE CREATINE 42219 [facility] WHITE KINASE MB 3 [facility] [place] [address] JULIO CESARBETZAIDA JULIO CESARBETZAIDA THYROID 3 [facility] [place] [address] JULIO CESARBETZAIDA CHRISTOPHER FREE [address] [place] [address] THYROXINE [facility] INJECTION J1885 [facility] SUSY[address] KETOROLAC [facility] TROMETHAM INE PER 15 MG INJECTION J2710 SUSYELVI CHRISTOPHER [address] [place] [address] NEOSTIGMI [facility] NE METHYLSUL FATE UP TO 0.5 MG INJECTION J3010 [facility] FENTANYL 3 [facility] 0.1 MG INJECTION J[address] LIDOCAINE [facility] HCL INTRAVENO US INFUS 10 MG INJECTION J[address] [facility] SONE SODIUM PHOSPHATE 1 MG NONINVASI 76890 [facility] VE [address] [place] [address] EAR/[facility] HOSPITAL OXIMETRY SINGLE DETER HEMORRHOI 36621 [facility] DECTOMY [address] [place] [address] INTERNAL [facility] RUBBER BAND LIGATIONS INJECTION J[address] CEFAZOLIN [facility] SODIUM 500 MG INJECTION J[address] HOSPITAL HCL PER 1 MG ECG 34290 [facility] ROUTINE [address] [place] [address] HOSPITAL W/LEAST 12 LDS TRCG ONLY W/O I&R INJECTION J2405 [address] ON HCL PER 1 MG ANOSCOPY 02682 CELIA JR ALLRAN JR DX 3 SAMIRA SAMIRA W/COLLJ SPEC BR/WA SPX WHEN PRFRMD INITIAL 48117 NAVID HERNANDEZ OBSERVATI 3 EMERGENCY PEDRITO IGN ON SERVICES CARE/DAY 70 MINUTES ECG 03330 CRISTIAN CORNEJO CORNEJO CRISTIAN ROUTINE 3 MD ECG CONSULTIN W/LEAST G SRV 12 LDS I&R ONLY BASIC 49585 [facility] METABOLIC 3 [facility] CALCIUM TOTAL ECG 24141 [facility] ROUTINE [address] [place] [address] HOSPITAL W/LEAST 12 LDS TRCG ONLY W/O I&R BLOOD 48589 [facility] COUNT 3 [facility] HEMATOCRI [facility] T BLOOD 04372 [facility] COUNT 3 [facility] HEMOGLOBI [facility] N COLLECTIO 45982 [facility] N VENOUS 3 [facility] VENIPUNCT URE INCONTINE T4541 [facility] [...] MEDICAL MEDICAL TYPE SIDE EQUIPME EQUIPME RAIL W/[facility] 03203 [facility] 3 [facility] DAY INTERNAL MANAGEMEN MED T 30 MIN/< SBSQ [address]/DAY INTERNAL 25 MED MINUTES SBSQ 82452 [facility] 3 [facility] CARE/DAY INTERNAL 25 MED MINUTES INITIAL [address] CARE/DAY INTERNAL 50 MED MINUTES RADIOLOGI 36180 [facility] EXAM 3 LILIBETH CHEST 2 RADIOLOGY VIEWS ASSOCIAT FRONTAL&L ATERAL US BREAST 82192 [facility] Hab Housing, [facility] INC, REAL 3 GRAINER MACHINE GRAINER MACHINE TIME ANDREY BALDERAS W/IMAGE CO HOS CO HOS DOCUMENTA TION MAMMOGRAP 66285 [facility] Hab Housing, [facility] INC, HY 3 GRAINER MACHINE GRAINER MACHINE UNILATERA ANDREY HANSENS L CO HOS CO HOS MAMMOGRAP 38999 [facility], [facility] INC, HY 3 GRAINER MACHINE GRAINER MACHINE BILATERAL ANDREY BALDERAS CO HOS CO HOS PWR K0823 HOVEROUND HOVEROUND GRP 2 STD 3 CAPTAINS CORPORATI CORPORATI CHAIR PT ON ON TO &=300 LBS HOS BED E0260 RICHARDSON RICHARDSON SEMI-ELEC 3 HOME HOME W/ANY MEDICAL MEDICAL TYPE SIDE EQUIPME EQUIPME RAIL W/MATTRSS [facility] 80130 [facility] Hab Housing, [facility] INC, FUNCTION 3 GRAINER MACHINE GRAINER MACHINE PANEL ANDREY HANSENS CO HOS CO HOS SUSCEPTBI 40733 [facility] Hab Housing, [facility] INC, LTY STDY 3 GRAINER MACHINE GRAINER MACHINE ANTIMICRB ANDREY BALDERAS IAL AGNT CO HOS CO HOS AGAR DILUTJ CULTURE 94201 [employer], [employer], BCT 3 GRAINER MACHINE GRAINER MACHINE ISOL&PRSM ANDREYDIYA BALDERAS PTV ID CO HOS CO HOS ISOLATE EA URINE BLOOD 49569 [employer], [employer], COUNT 3 GRAINER MACHINE GRAINER MACHINE COMPLETE ANDREY BALDERAS AUTO&AUTO CO HOS CO HOS DIFRNTL WBC PROTEIN 90839 [employer], [employer], TOTAL 3 GRAINER MACHINE GRAINER MACHINE XCPT ANDREY BALDERAS REFRACTOM [place] [address] [employer], [employer], PARATHORM 3 GRAINER MACHINE GRAINER MACHINE ONE ANDREY ANDREY CO HOS CO HOS 25 29023 [employer], [employer], HYDROXY 3 GRAINER MACHINE GRAINER MACHINE INCLUDES ANDREY BALDERAS FRACTIONS CO HOS CO HOS IF PERFORMED CREATININ 42299 [employer], [employer], E OTHER 3 GRAINER MACHINE GRAINER MACHINE SOURCE ANDREY BALDERAS CO HOS CO HOS URNLS DIP 42537 [employer], [employer], 3 GRAINER MACHINE GRAINER MACHINE STICK/TAB ANDREY BALEDRAS LET CO HOS CO HOS REAGENT AUTO MICROSCOP Y CULTURE 30321 [employer], [employer], BACTERIAL 3 GRAINER MACHINE GRAINER MACHINE ANDREY BALDERAS QUANTTATI CO HOS CO HOS VE COLONY COUNT URINE RADEX 89891 [facility] ESOPHAGUS 3 LILIBETH RADIOLOGY ASSOCIAT SCREENING 23433 [facility] 3 [facility] MAMMOGRAP RADIOLOGY HY ASSOCIAT BILATERAL DISPBL T4535 [facility] LINER/KATHIE 3 HOME HOME ELD/GUARD HEALTH HEALTH /PAD/UNDG AGENCY AGENCY RMNT INCONT EA ADLT SZD T4526 [facility] DISPBL 3 HOME HOME INCONT HEALTH HEALTH PROD AGENCY AGENCY UNDWEAR MED EA MRI 53620 [facility] 3 Y Y CANAL [facility] LUMBAR W/O CONTRAST MATERIAL PWR K0823 HOVEROUND HOVEROUND GRP 2 STD 3 CAPTAINS CORPORATI CORPORATI CHAIR PT ON ON TO &=300 LBS HOS BED E0260 R[facility]ON BAI SEMI-ELEC 3 HOME HOME W/ANY MEDICAL MEDICAL TYPE SIDE EQUIPME EQUIPME RAIL W/[place] [address] KRISSY REY INFUSION 3 [facility] THERAPY/P INC INC ROPHYLAXI S /DX 1ST TO 1 [place] [address] KRISSY REY INFUSION 3 [facility]OS[facility] THERAPY INC INC PROPHYLAX IS/DX EA HOUR ANES 73874 [facility] LOWER 3 ANESTH INTESTINE OF THE BLUE ENDOSCOPY DISTAL DUODENUM COLOREC G0105 CELIA YANG JR CANCR 3 SAMIRA SAMIRA SCR; COLONSCPY INDIVIDUL @HIGH RISK INJECTION J3301 [facility] 3 Y Y [facility] LONE ACETONIDE NOS 10 MG NJX 68522 [facility] DX/THER 3 Y Y AGT [facility] FACET JT LMBR/SAC 1 LEVEL LOCM Q9967 [facility] [phone] 3 Y Y MG/ML [facility] IODINE CONCENTRA TION PER ML ADLT [...] TYPE SIDE EQUIPME EQUIPME RAIL W/MATTRSS [employer] 82937 [employer], [employer] INC, IC PX 1/> 2 GRAINER MACHINE GRAINER MACHINE AREAS ANDREY BALDERAS EACH 15 CO HOS CO HOS MIN EXERCISES THERAPEUT 85479 [employer] INC, [employer] INC, IC PX 1/> 2 GRAINER MACHINE GRAINER MACHINE AREAS ANDREY BALDERAS EACH 15 CO HOS CO HOS MIN EXERCISES INCONTINE T4541 [facility] NCE 2 HOME HOME PRODUCT HEALTH HEALTH DISPOSABL AGENCY [place]ENC[place] [address] [facility] Hab Housing, [employer], UREA 2 GRAINER MACHINE GRAINER MACHINE NITROGEN ANDREY BALDERAS QUANTITAT CO HOS CO HOS KETAN CREATININ 78262 [facility] JEAN, [facility] INC, E BLOOD 2 GRAINER MACHINE GRAINER MACHINE ANDREY ANDREY CO HOS CO HOS THERAPEUT 55795 [facility] JEAN, [facility] INC, IC PX 1/> 2 GRAINER MACHINE GRAINER MACHINE AREAS ANDREY BALDERAS EACH 15 CO HOS CO HOS MIN EXERCISES CT THORAX 28997 [facility] W/O 2 EIDER DEE CONTRAST RADIOLOGY MATERIAL ASSOCIAT THERAPEUT 19755 [facility] Hab Housing, [employer], IC PX 1/> 2 GRAINER MACHINE GRAINER MACHINE AREAS ANDREY ANDREY EACH 15 CO HOS CO HOS MIN EXERCISES HOS BED E0260 RICHARDSON BAI SEMI-ELEC 2 HOME HOME W/ANY MEDICAL MEDICAL TYPE SIDE EQUIPME EQUIPME RAIL W/MATTRSS [employer] 59331 [employer] JEAN, [employer] INC, IC PX 1/> 2 GRAINER MACHINE GRAINER MACHINE AREAS ANDREY BALDERAS EACH 15 [place] [address] [employer], [employer] INC, 1/> AREAS 2 GRAINER MACHINE GRAINER MACHINE EA 15 ANDREY BALDERAS MIN GAIT CO HOS CO HOS TRAINJ W/STAIR RADIOLOGI 07483 [facility] Hab Housing, [employer], C EXAM 2 GRAINER MACHINE GRAINER MACHINE CHEST 2 ANDREY BALDERAS VIEWS CO HOS CO HOS FRONTAL&L ATERAL THERAPEUT 11882 [employer], [employer], IC PX 1/> 2 GRAINER MACHINE GRAINER MACHINE AREAS ANDREY ANDREY EACH 15 CO HOS CO HOS MIN EXERCISES PHYSICAL 59648 [employer], THERAPY 2 GRAINER MACHINE GRAINER MACHINE EVALUATIO ANDREY HANSENS N CO HOS CO HOS THERAPEUT 93693 [employer], IC PX 1/> 2 GRAINER MACHINE GRAINER MACHINE AREAS ANDREY ANDREY EACH [address] [place] [address] [place] ABDOMEN & 2 MEDICAL SCO PELVIS SERV W/O FOUNDATIO CONTRAST MATERIAL RADEX 67298 [facility] 2 Y Y [facility] MINIMUM 2 VIEWS RADEX 27866 [facility] SPINE 2 Y Y LUMBOSACR [facility] AL 2/3 VIEWS RADIOLOGI 88933 [facility] C 2 Y Y EXAMINATI [facility] ON KNEE 1/2 VIEWS CREATINE 09540 [facility] KINASE 2 Y Y TOTAL [facility] [place] [address] [facility] ALDOLASE 2 Y Y [facility] SEDIMENTA 58237 [facility] TION RATE 2 Y Y RBC [facility] AUTOMATED C-REACTIV 10977 [facility] E PROTEIN 2 Y Y [facility] COLLECTIO 25203 [facility] N VENOUS 2 Y Y BLOOD [facility] VENIPUNCT URE DISPBL T4535 [facility]/KATHIE 2 HOME HOME ELD/GUARD HEALTH HEALTH /PAD/UNDG AGENCY AGENCY RMNT INCONT EA ADLT SZD T4526 [facility] DISPBL 2 HOME HOME INCONT HEALTH HEALTH PROD AGENCY AGENCY UNDWEAR MED EA PROTEIN 49742 [employer], [employer], TOTAL 2 GRAINER MACHINE GRAINER MACHINE XCPT ANDREY BALDERAS REFRACTOM CO HOS CO HOS ETRY URINE CREATININ 82004 [employer], [employer], E OTHER 2 GRAINER MACHINE GRAINER MACHINE SOURCE ANDREY BALDERAS CO HOS CO HOS CULTURE 44004 [facility], BACTERIAL 2 GRAINER MACHINE GRAINER MACHINE ANDREY BALDERAS QUANTTATI CO HOS CO HOS VE COLONY COUNT URINE URNLS DIP 00936 [employer], [employer], 2 GRAINER MACHINE GRAINER MACHINE STICK/TAB ANDREY BALDERAS LET CO HOS CO HOS REAGENT AUTO MICROSCOP Y RENAL 91794 [employer], [employer], FUNCTION 2 GRAINER MACHINE GRAINER MACHINE PANEL ANDREY BALDERAS CO HOS CO HOS CULTURE 18425 [employer], [employer], BCT 2 GRAINER MACHINE GRAINER MACHINE ISOL&PRSM ANDREY BALDERAS PTV ID CO HOS CO HOS ISOLATE EA URINE BLOOD 80461 [employer], COUNT 2 GRAINER MACHINE GRAINER MACHINE COMPLETE ANDREY BALDERAS AUTO&AUTO CO HOS CO HOS DIFRNTL WBC SUSCEPTBI 38470 [employer], [facility] INC, LTY STDY 2 GRAINER MACHINE GRAINER MACHINE ANTIMICRB ANDREY ANDREY IAL AGNT CO HOS CO HOS AGAR DILUTJ BLOOD 47146 [facility], [facility] INC, COUNT 2 GRAINER MACHINE GRAINER MACHINE COMPLETE ANDREY ANDREY AUTO&AUTO CO HOS CO HOS DIFRNTL WBC BASIC 81716 [facility], [facility] INC, METABOLIC 2 GRAINER MACHINE GRAINER MACHINE PANEL ANDREY AND[place] [address] [facility], [facility] INC, INFUSION 2 GRAINER MACHINE GRAINER MACHINE THERAPY/P ANDREY ANDREY ROPHYLAXI CO HOS CO HOS S /DX 1ST TO 1 HR COMPREHEN 79382 [facility], [facility], SIVE 2 GRAINER MACHINE GRAINER MACHINE METABOLIC AND[place] [address] [facility], [facility] INC, INFUSION 2 GRAINER MACHINE GRAINER MACHINE HYDRATION ANDREY ANDREY INITIAL CO HOS CO HOS 31 MIN-1 HOUR CULTURE 89145 [facility], [facility] INC, BCT 2 GRAINER MACHINE GRAINER MACHINE ISOL&PRSM ANDREY ANDREY PTV ID CO HOS CO HOS ISOLATE EA URINE INJECTION [id number] [facility], [facility], 2 GRAINER MACHINE GRAINER MACHINE ONDANSETR ANDREY ANDREY ON HCL CO HOS CO HOS PER 1 MG SUSCEPTBI 35308 [facility], [facility], LTY STDY 2 GRAINER MACHINE GRAINER MACHINE ANTIMICRB ANDREY ANDREY IAL AGNT CO HOS CO HOS AGAR DILUTJ URNLS DIP 16062 [facility], [facility], 2 GRAINER MACHINE GRAINER MACHINE STICK/TAB ANDREY ANDREY LET CO HOS CO HOS REAGENT AUTO MICROSCOP Y HOSPITAL G0378 [facility], [facility], OBSERVATI 2 GRAINER MACHINE GRAINER MACHINE ON ANDREY ANDREY SERVICE CO HOS CO HOS PER HOUR DIRECT G0379 [facility], [facility], ADMISSION 2 GRAINER MACHINE GRAINER MACHINE PATIENT [facility] CO HOS CO HOS OBSERV CARE CULTURE 45029 [facility], [facility], BACTERIAL 2 GRAINER MACHINE GRAINER MACHINE ANDREY ANDREY QUANTTATI CO HOS CO HOS VE COLONY COUNT URINE BLOOD 66354 [facility], [facility], COUNT 2 GRAINER MACHINE GRAINER MACHINE COMPLETE ANDREY ANDREY AUTO&AUTO [place] [address] [facility] Hab Housing, [facility] Housing, LIPASE 2 GRAINER MACHINE GRAINER MACHINE ANDREY HANSENS CO HOS CO HOS ADLT SZD T4526 [facility] 2 HOME HOME INCONT HEALTH HEALTH PROD AGENCY AGENCY UNDWEAR MED EA DISPBL T4535 [facility] LINER/KATHIE 2 HOME HOME ELD/GUARD HEALTH HEALTH /PAD/UNDG AGENCY AGENCY RMNT INCONT EA ECG 81859 CRISTIAN CORNEJO CORNEJO CRISTIAN ROUTINE 2 MD ECG CONSULTIN W/LEAST G SRV 12 LDS I&R ONLY ECG 12282 CRISTIAN CORNEJO CORNEJO CRISTIAN ROUTINE 2 MD ECG CONSULTIN W/LEAST G SRV 12 LDS I&R ONLY HOSPITAL 05750 JAVIER JAVIER DISCHARGE 2 PEDRO PEDRO DAY MANAGEMEN T 30 MIN/< [place] [address]222 [facility] Collections [employer] [facility], INFUSION 2 GRAINER MACHINE GRAINER MACHINE HYDRATION ANDREY BALDERAS INITIAL CO HOS CO HOS 31 MIN-1 [place] [address] [employer], INFUSION 2 GRAINER MACHINE GRAINER MACHINE THERAPY/P ANDREY BALDERAS ROPHYLAXI CO HOS CO HOS S /DX 1ST TO 1 HR ECG 64894 [facility] Hab Housing, [facility] Housing, ROUTINE 2 GRAINER MACHINE GRAINER MACHINE ECG ANDREY BALDERAS W/LEAST CO HOS CO HOS 12 LDS TRCG ONLY W/O I&R SUSCEPTBI 96196 [facility] Hab Housing, [facility] Hab Housing, LTY STDY 2 GRAINER MACHINE GRAINER MACHINE ANTIMICRB ANDREY BALDERAS IAL AGNT CO HOS CO HOS AGAR DILUTJ COMPREHEN 92804 [facility] Hab Housing, [facility], SIVE 2 GRAINER MACHINE GRAINER MACHINE METABOLIC ANDREY BALDERAS PANEL CO HOS CO HOS CULTURE 52603 [facility] Hab Housing, [employer], BCT 2 GRAINER MACHINE GRAINER MACHINE ISOL&PRSM ANDREY BALDERAS PTV ID CO HOS CO HOS ISOLATE EA URINE RADIOLOGI 81197 [facility] Hab Housing, [facility], C 2 GRAINER MACHINE GRAINER MACHINE EXAMINATI ANDREY BALDERAS ON CHEST CO HOS CO HOS [place] FRONTAL FIBRIN 25456 [facility] Hab Housing, [facility] Housing, DGRADJ 2 GRAINER MACHINE GRAINER MACHINE PRODUCTS ANDREY ANDREY D-DIMER CO HOS CO HOS QUAL/SEMI HEATHER PROTHROMB 64425 [facility], [facility], IN TIME 2 GRAINER MACHINE GRAINER MACHINE ANDREY ANDREY CO HOS CO HOS CREATINE 91876 [facility], [facility], KINASE 2 GRAINER MACHINE GRAINER MACHINE TOTAL ANDREY ANDREY CO HOS CO HOS CREATINE 75856 [facility], [facility], KINASE MB 2 GRAINER MACHINE GRAINER MACHINE FRACTION ANDREY ANDREY ONLY CO HOS CO HOS BLOOD 69236 [facility], [employer], COUNT 2 GRAINER MACHINE GRAINER MACHINE COMPLETE ANDREY ANDREY AUTO&AUTO [place] [address] [employer], TROPONIN 2 GRAINER MACHINE GRAINER MACHINE QUANTITAT ANDREY ANDREY KETAN CO HOS CO HOS NATRIURET 45927 [facility] Hab Housing, [employer], IC 2 GRAINER MACHINE GRAINER MACHINE PEPTIDE ANDREY ANDREY CO HOS CO HOS CULTURE 84676 [facility] Hab Housing, [facility], BACTERIAL 2 GRAINER MACHINE GRAINER MACHINE ANDREY ANDREY QUANTTATI CO HOS CO HOS VE COLONY COUNT URINE URNLS DIP 47401 [employer], 2 GRAINER MACHINE GRAINER MACHINE STICK/TAB ANDREY ANDREY LET CO HOS CO [place] [address] [employer], FREE 2 GRAINER MACHINE GRAINER MACHINE THYROXINE [place]RE[place] [address] [employer], THYROID 2 GRAINER MACHINE GRAINER MACHINE STIMULATI ANDREY ANDREY NG CO HOS CO HOS HORMONE TSH COMPREHEN 76238 [employer], [employer], SIVE 2 GRAINER MACHINE GRAINER MACHINE METABOLIC ANDREY ANDREY PANEL CO HOS CO HOS LIPID 47669 [facility], [employer], PANEL 2 GRAINER MACHINE GRAINER MACHINE ANDREY ANDREY CO HOS CO HOS ECG 33382 CRISTIAN CORNEJO CORNEJO CRISTIAN ROUTINE 2 MD ECG CONSULTIN W/LEAST G SRV 12 LDS I&R ONLY ECG 45238 [facility] Hab Housing, [employer], ROUTINE 2 GRAINER MACHINE GRAINER MACHINE ECG ANDREY ANDREY W/LEAST CO HOS CO HOS 12 LDS TRCG ONLY W/O I&R RADIOLOGI 73476 [facility], [facility], C EXAM 2 GRAINER MACHINE GRAINER MACHINE CHEST 2 ANDREY ANDREY VIEWS CO HOS CO HOS FRONTAL&L ATERAL ARTERIAL 18833 [facility], [facility], PUNCTURE 2 GRAINER MACHINE GRAINER MACHINE WITHDRAWA ANDREY ANDREY L BLOOD CO HOS CO HOS DX COMPREHEN 39214 [facility], [facility], SIVE 2 GRAINER MACHINE GRAINER MACHINE METABOLIC ANDREY ANDREY PANEL CO HOS CO HOS INJECTION J2280 [facility], [facility], 2 GRAINER MACHINE GRAINER MACHINE MOXIFLOXA ANDREY ANDREY KJ 100 CO HOS CO HOS MG GASES 92204 [facility], [facility], BLOOD PH 2 GRAINER MACHINE GRAINER MACHINE DIRECT ANDREY ANDREY FELA XCPT CO HOS CO HOS PULSE OXIMITRY URNLS DIP 14287 [facility], [facility], 2 GRAINER MACHINE GRAINER MACHINE STICK/TAB ANDREY ANDREY LET CO HOS CO HOS REAGENT AUTO MICROSCOP Y CULTURE 03818 [facility], [facility], BACTERIAL 2 GRAINER MACHINE GRAINER MACHINE ANDREY ANDREY QUANTTATI CO HOS CO HOS VE COLONY COUNT URINE BLOOD 74778 [facility], [facility], COUNT 2 GRAINER MACHINE GRAINER MACHINE COMPLETE ANDREY ANDREY AUTO&AUTO CO HOS CO HOS DIFRNTL [facility] G0378 [facility], [facility], OBSERVATI 2 GRAINER MACHINE GRAINER MACHINE ON ANDREY ANDREY SERVICE CO HOS CO HOS PER HOUR CULTURE 23119 [facility], [facility], BCT 2 GRAINER MACHINE GRAINER MACHINE ISOL&PRSM ANDREY ANDREY PTV ID CO HOS CO HOS ISOLATE EA URINE RADIOLOGI 10081 [facility] C EXAM 2 LILIBETH CHEST 2 RADIOLOGY VIEWS ASSOCIAT FRONTAL&L ATERAL SUSCEPTBI 76838 [facility], [facility], LTY STDY 2 GRAINER MACHINE GRAINER MACHINE ANTIMICRB ANDREY ANDREY IAL [place] [address] [facility], [facility], INFUSION 2 GRAINER MACHINE GRAINER MACHINE THERAPY/P ANDREY ANDREY ROPHYLAXI CO HOS CO HOS S /DX 1ST TO 1 HR BASIC 83679 [facility], [facility], METABOLIC 2 GRAINER MACHINE GRAINER MACHINE PANEL ANDREY AND[place] [address] [facility], [employer], INFUSION 2 GRAINER MACHINE GRAINER MACHINE HYDRATION ANDREY BALDERAS EACH [place] [address] [employer], INFUSION 2 GRAINER MACHINE GRAINER MACHINE HYDRATION ANDREY BALDERAS INITIAL CO HOS CO HOS 31 MIN-1 HOUR INJECTION J0280 [facility] 2 Y Y [facility] 250 MG MYOCARDIA 16393 [facility] SPECT 2 Y Y [facility] STUDIES INJECTION J2785 [facility] 2 Y Y [facility] 0.1 MG CV STRS 14501 [facility] 2 Y Y XERS&/OR [facility] RX CONT ECG TRCG ONLY CV STRS 00250 [facility] 2 MEDICAL SAMIRA XERS&/OR SERV RX CONT FOUNDATIO ECG W/O I&R CV STRS 13717 [facility] 2 MEDICAL SAMIRA XERS&/OR SERV RX CONT FOUNDATIO ECG I&R ONLY TECHNETIU A9500 [facility] TC-99M 2 Y Y [facility] [place] [address] [place] DISANTIS ABDOMEN & 2 MEDICAL JEWELS PELVIS SERV W/O FOUNDATIO CONTRAST MATERIAL ECG 49323 CRISTIAN CORNEJO CORNEJO CRISTIAN ROUTINE 2 MD ECG CONSULTIN W/LEAST G SRV 12 LDS I&R ONLY SUSCEPTBI 25379 [facility] STDY 2 Y Y [facility] IAL AGNT AGAR DILUTJ SUSCEPTIB 48106 [facility] STDY 2 Y Y [facility] IAL MICRO/AGA R DILUTJ CULTURE 35261 [facility] BACTERIAL 2 Y Y [facility] QUANTTATI VE COLONY COUNT URINE CUL BACT 79476 [facility] AEROBIC 2 Y Y [facility] METHS DEFINITIV E EA ISOL URINLS 37362 [facility] DAVEY DIP 2 NURSE GWE STICK/TAB PRACTITIO LET NER GR REAGNT NON-AUTO MICRSCPY ECG 43565 CRISTIAN CORNEJO CORNEJO CRISTIAN ROUTINE 2 MD ECG CONSULTIN W/LEAST G SRV 12 LDS I&R ONLY ECG 20641 CRISTIAN CORNEJO CORNEJO CRISTIAN ROUTINE 1 MD ECG CONSULTIN W/LEAST G SRV 12 LDS I&R ONLY ECG 40463 CRISTIAN CORNEJO CORNEJO CRISTIAN ROUTINE 1 MD ECG CONSULTIN W/LEAST G SRV 12 LDS I&R ONLY SUSCEPTBI 85296 ANDREY BALDERAS LTY STDY 1 CO CO ANTIMICRB [facility] IAL AGNT AGAR DILUTJ COMPREHEN 67130 ANDREY BALDERAS SIVE 1 CO [facility] PANEL CULTURE 19207 ANDREY BALDERAS BCT 1 CO CO ISOL&PRSM [facility] PTV ID ISOLATE EA URINE PROTEIN 15766 ANDREY BALDERAS TOTAL 1 CO CO XCPT [facility] [place] [address] ANDREY BALDERAS PHOSPHORU 1 CO CO S [facility] INORGANIC CREATININ 24364 ANDREY Bolivar OTHER 1 CO CO SOURCE [facility] HOSPITAL CULTURE 73863 ANDREY BALDERAS BACTERIAL 1 CO CO [facility] QUANTTATI VE COLONY COUNT URINE COLLECTIO 41647 ANDREY Cook VENOUS 1 CO CO BLOOD [facility] VENIPUNCT URE BLOOD 84273 ANDREY CHAVARRIA 1 CO CO COMPLETE [facility] AUTO&AUTO DIFRNTL WBC URNLS DIP 04572 ANDREY BALDERAS 1 CO CO STICK/TAB HOSPITAL HOSPITAL LET REAGENT AUTO MICROSCOP Y BLOOD 37440 ANDREY CHAVARRIA 1 CO CO SMEAR [facility] MCRSCP W/[place] [address] ANDREY BALDERAS BLOOD/URI 1 CO CO C ACID [facility] RADIOLOGI 99570 MIN[facility] Sanchez EXAM 1 MEDICAL CHEST 2 SERV VIEWS FOUNDATIO FRONTAL&L ATERAL ECG 03296 [place] OLIVEIRA ROUTINE 1 MEDICAL NAN ECG SERV W/LEAST FOUNDATIO 12 LDS I&R ONLY DUP-SCAN 18548 [place] MARIO XTR VEINS 1 MEDICAL [place] SERV [facility] F[facility] L/[facility]ITED [facility] 01957 [facility] DISCHARGE 1 [place] FAMILY DAY MEDICINE MANAGEMEN P T 30 MIN/< RADIOLOGI 19212 ANDREY BALDERAS C 0 CO CO [facility] KNEE 3 VIEWS RENAL 55454 ANDREY BALDERAS FUNCTION 0 CO CO PANEL [facility] RADIOLOGI 17490 ANDREY BALDERAS C 0 CO CO [facility] ON PELVIS 1/2 VIEWS RADEX HIP 82107 ANDREY BALDERAS 0 CO CO [facility] L COMPLETE MINIMUM 2 VIEWS OVA&ZONIA 70758 ANDREY BALDERAS ITES 0 CO CO DIRECT [facility] SMEARS CONCENTRA TION & ID COMPLEMEN 82656 ANDREY Flor TOTAL 0 CO CO HEMOLYTIC [facility] BLOOD 18707 ANDREY BALDERAS COUNT 0 CO CO SMEAR [facility] MCRSCP W/MNL DIFRNTL WBC COUNT URNLS DIP 04420 ANDREY BALDERAS 0 CO CO STICK/TAB HOSPITAL HOSPITAL LET REAGENT AUTO MICROSCOP Y DNA 59731 ANDREY BALDERAS ANTIBODY 0 CO CO [facility] UBLE STRANDED C-REACTIV 70159 ANDREY BALDERAS E PROTEIN 0 CO CO [facility] COLLECTIO 22676 ANDREY BALDERAS N VENOUS 0 CO CO BLOOD HOSPITAL HOSPITAL VENIPUNCT URE CREATININ 17901 ANDREY BALDERAS E OTHER 0 CO CO SOURCE [facility] CREATINE 77073 ANDREY BALDERAS KINASE 0 CO [place] [address] ANDREY BALDERAS PARATHORM 0 CO CO [facility] 25 43180 ANDREY BALDERAS HYDROXY 0 CO CO INCLUDES HOSPITAL H[place] [address] ANDREY BALDERAS ALDOLASE 0 CO CO HOSPITAL HOSPITAL PROTEIN 43164 ANDREY BALDERAS TOTAL 0 CO CO XCPT [facility] REFRACTOM ETRY URINE SEDIMENTA 21199 ANDREY BALDERAS TIELVI RATE 0 CO CO RBC HOSPITAL HOSPITAL NON-AUTOM ATED COMPLEMEN 63491 ANDREY ANDREY T ANTIGEN 0 CO CO EACH [facility] COMPONENT BLOOD 37341 [facility] COUNT 0 Y Y COMPLETE [facility] AUTO&AUTO DIFRNTL WBC COLLECTIO 13696 [facility] N VENOUS 0 Y Y BLOOD [facility] VENIPUNCT URE COMPREHEN 92255 [facility] SIVE 0 Y Y METABOLIC [facility] PANEL COMPREHEN 21674 [facility] SIVE 0 Y Y METABOLIC [facility] PANEL COLLECTIO 61117 [facility] N VENOUS 0 Y Y BLOOD [facility] VENIPUNCT URE BLOOD 00917 [facility] COUNT 0 Y Y COMPLETE [facility] AUTO&AUTO DIFRNTL WBC CHROMATOG 09144 [facility] SURYA 0 Y Y HEATHER [facility] COLUMN 1 ANALYTE KARLENE ANESTHESI 94665 [facility] G A EYE 0 ANESTHESI LENS A ASSOC SURGERY CATARACT 66531 [facility] REMOVAL 0 LTH EYE LTH EYE INSERTION SURG SURG OF LENS AMBULA AMBULA OPH BMTRY 99018 PHILIPP RIVERO BRANT PRTL 0 ROBERT COHER INTRFRMTR Y IO LENS PWR KELLEE ECG 19814 [facility] ROUTINE 0 Y Y ECG [facility] W/LEAST 12 LDS TRCG ONLY W/O I&R Encounters Encounter Start End Date Code Location Performer Type Date HOME [facility], 7 7 HOME INPATIENT HEALTH AGENCY [place] 58284 [place] [facility] OUTPAT[facility] 7 7 MEDICAL T VISIT SERV 25 FOUNDATIO MINUTES N [facility]OSP[facility] - 7 7 [facility] - 7 7 [facility] OUTPATIEN INC T HOME [facility] 7 7 HOME INPATIENT HEALTH AGENCY OFFICE 09294 [place] ARIANE OUTPATIEN 7 7 MEDICAL JR T NEW 45 SERV MINUTES [place]OUNDAT[place] N OFFICE 59617 [place] HER[place]ERT OUTPATIEN 7 7 MEDICAL T VISIT SERV 40 FOUNDATIO MINUTES N HOME [facility], 7 7 HOME INPATIENT HEALTH [facility] [place] 52817 [place] HER[place] OUTPATIEN 7 7 MEDICAL T VISIT SERV 40 FOUNDATIO MINUTES N HOME [facility], 7 7 HOME INPATIENT HEALTH AGENCY OFFICE 43116 [place] GUILLEN PERRY OUTPATIEN 6 6 MEDICAL T VISIT SERV 25 FOUNDATIO MINUTES [facility] KRISSY - 6 6 MEM HOSP OUTPATIEN [facility] T OFFICE 97548 [facility] OUTPATI[facility] 6 6 PHYSICIAN T VISIT S GROUP 10 MINUTES [facility] KRISSY - 6 6 MEM [facility] OUTPATIEN [facility] T OFFICE 80697 [facility] OUTPATI[facility] 6 6 PHYSICIAN T VISIT S GROUP 10 MINUTES OFFICE 60619 [facility] OUTPATIEN 6 6 PHYSICIAN T VISIT S GROUP 15 MINUTES HOSPITAL KRISSY - 6 6 MEM [facility] OUTPATIEN [facility] T OFFICE 38375 [facility] OUTPATIEN 6 6 PHYSICIAN T NEW 30 S GROUP MINUTES [facility] KRISSY - 6 6 MEM [facility] OUTPATIEN [facility] KRISSY - 6 6 MEM [facility] OUTPATIEN [facility] UNIVERSIT - 6 6 Y [facility] T OFF[facility] 82801 [place] HER[place]ERT HENDRIXI OUTPATIEN 6 6 MEDICAL T VISIT SERV 25 FOUNDATIO MINUTES N HOME [facility], 6 6 HOME INPATIENT HEALTH AGENCY EMERGENCY 31556 [facility] 6 6 HARIS VISIT EMERGENCY HIGH PHYS SEVERITY& THREAT FUNCJ HOME [facility], 6 6 HOME INPATIENT HEALTH AGENCY HOSPITAL UNIVERSIT - 6 6 Y [facility] T OFFICE 24150 [place] HERBERT ARGUETA OUTPATIEN 6 6 MEDICAL T VISIT SERV 40 FOUNDATIO MINUTES N OFFICE 27929 [place] JAQUEZ OUTPATIEN 6 6 [facility] T VISIT INTERNAL 15 MEDI MINUTES HOSPITAL KRISSY - OTHER 6 6 MEM HOS[facility] INC HOME [facility], 6 6 HOME INPATIENT HEALTH AGENCY OFFICE 75348 [place] YOVANY OUTPATIEN 6 6 VALLEY NICOLA T VISIT INTERNAL 15 MEDI MINUTES OFFICE 43755 [place] WIL[place] AMADOR OUTPATIEN 6 6 MEDICAL T VISIT SERV 25 FOUNDATIO MINUTES [facility] KRISSY - OTHER 6 6 MEM HOSP INC OFFICE 40229 [place] TAI OUTPATIEN 6 6 YONY KRIS T NEW 30 MINUTES HOME [facility], 6 6 HOME [facility]PATIENT [facility] KRISSY - 6 6 MEM [facility] OUTPATIEN INC T OFFICE 28561 [place] BESSON OUTPATIEN 6 6 [facility] TIMOTHY T VISIT INTERNAL 25 MED MINUTES HOSPITAL UNIVERSIT - 5 5 [facility] T OFFICE 47775 [place] HER[place]ERT ARGUETA OUTPATIEN 5 5 MEDICAL T VISIT SERV 40 FOUNDATIO MINUTES HOSPITAL KRISSY - 5 5 MEM [facility] OUTPATIEN INC T EMERGENCY 19846 [facility] 5 PHYSICIAN U CAROL VISIT S, PLLC HIGH SEVERITY& THREAT FUNCJ EMERGENCY 92164 KRISSY 5 5 MEM HOSP DEPARTMEN INC T VISIT HIGH/URGE NT SEVERITY HOME [facility], 5 5 HOME INPATIENT HEALTH AGENCY OFFICE 28470 [facility] SOPHIE TOD OUTPATIEN 5 5 PHYSICIAN T VISIT S GROUP 15 MINUTES HOME [facility], 5 5 HOME INPATIENT HEALTH AGENCY OFFICE 27007 [place] B[facility] OUTPATIEN 5 5 VALLEY TIMOTHY T VISIT INTERNAL 15 MED MINUTES HOSPITAL KRISSY - 5 5 [facility] OUTPATIEN INC T OFFICE 92574 [facility] SOPHIE TOD OUTPATIEN 5 5 PHYSICIAN T NEW 30 S GROUP MINUTES HOSPITAL KRISSY - 5 5 [facility] OUTPATIEN INC T HOSPITAL KRISSY - 5 5 [facility] OUTPATIEN INC T OFFICE 85282 [facility] AMADOR OUTPATIEN 5 5 MEDICAL T VISIT SERV 25 FOUNDATIO MINUTES N OFFICE 53628 [place] JAQUEZ OUTPATIEN 5 5 VALLEY HOL T VISIT INTERNAL 15 MEDI MINUTES HOSPITAL KRISSY - OTHER 5 5 MEM [facility] INC OFFICE 56515 [place] JAQUEZ OUTPATIEN 5 5 VALLEY HOL T VISIT INTERNAL 25 MEDI MINUTES HOME [facility], 5 5 HOME INPATIENT HEALTH AGENCY HOME [facility], 5 5 DIST OTHER HEALTH DEPT [facility] KRISSY - 5 5 MEM HOSP OUTPATIEN INC HOME [facility], 5 5 DIST OTHER HEALTH DEPT [facility], 5 5 HOME INPATIENT HEALTH AGENCY HOME [facility], 5 5 DIST OTHER HEALTH DEPT [facility] OFFICE 68521 [facility] ARGUETA OUTPATIEN 5 5 MEDICAL T VISIT SERV 40 FOUNDATIO MINUTES HOSPITAL KRISSY - 5 5 MEM H[facility] OUTPATIEN INC T EMERGENCY 26585 [facility] 5 5 MEM HOSP DEPARTMEN INC T VISIT HIGH/URGE NT SEVERITY HOME [facility], 5 5 DIST OTHER HEALTH DEPT [facility] 5 5 DIST OTHER HEALTH DEPT [facility], 5 5 HOME OUTPATIEN HEALTH T AGENCY OFFICE 45194 [place] [facility] OUTPATIEN 5 5 [place] TIMOTHY T VISIT INTERNAL 15 MED MINUTES HOME [facility], 5 5 DIST OTHER HEALTH DEPT [employer] HOME [facility], 5 5 DIST OTHER HEALTH DEPT [employer] OFFICE [address]184 [place] WIL[facility] AMADOR OUTPATIEN 5 5 MEDICAL T VISIT SERV 25 FOUNDATIO MINUTES N HOME [facility], 5 5 DIST OTHER HEALTH DEPT [facility], 5 5 HOME OUTPATIEN HEALTH T AGENCY OFFICE [id number] [place] [facility] ARGUETA OUTPATIEN 5 5 MEDICAL T VISIT SERV 40 FOUNDATIO MINUTES N HOME [facility], 5 5 DIST OTHER HEALTH DEPT [facility], 4 4 HOME OUTPATIEN HEALTH T AGENCY [facility], 4 4 DIST OTHER HEALTH DEPT [facility], 4 4 DIST OTHER HEALTH DEPT [employer] OFFICE [address]78 [place] [facility]GU[facility] OUTPATIEN 4 4 MEDICAL T VISIT SERV 15 FOUNDATIO MINUTES N HOME [facility], 4 4 HOME OUTPATIEN HEALTH T [facility] KRISSY - 4 4 [facility] OUT[facility]IEN INC T OFFICE [id number] [place] [facility] OUTPATIEN 4 4 MEDICAL T VISIT SERV 25 FOUNDATIO MINUTES HOSPITAL KRISSY - 4 4 [facility] OUTPATIEN INC T HOME [facility], 4 4 DIST OTHER HEALTH DEPT [employer] HOME [facility], 4 4 DIST OTHER HEALTH DEPT [employer] HOME [facility], 4 4 HOME OUTPATIEN HEALTH T AGENCY HOME [facility], 4 4 DIST OTHER HEALTH DEPT [employer] OFFICE [address]00 [place] [facility] OUTPATIEN 4 4 MEDICAL T VISIT SERV 25 FOUNDATIO MINUTES OFFICE 96316 [place] [facility] ARGUETA OUTPATIEN 4 4 MEDICAL T VISIT SERV 25 FOUNDATIO MINUTES HOSPITAL KRISSY - 4 4 [facility] OUTPATIEN INC T HOME [facility], 4 4 DIST OTHER HEALTH DEPT [facility], 4 4 DIST OTHER HEALTH DEPT [employer] HOME [facility], 4 4 HOME OUTPATIEN HEALTH T AGENCY HOME [facility], 4 4 DIST OTHER HEALTH DEPT [employer] OFFICE [address]171 [place] HERB[facility] ARGUETA OUTPATIEN 4 4 MEDICAL T VISIT SERV 40 FOUNDATIO MINUTES HOME [facility], 4 4 DIST OTHER HEALTH DEPT [employer] OFFICE 35743 [place] [facility] OUTPATIEN 4 4 MEDICAL T VISIT SERV 25 FOUNDATIO MINUTES CRITICAL [facility], ACCESS 4 4 GRAINER MACHINE [facility] HOME [facility], 4 4 DIST OTHER HEALTH DEPT [employer] HOME [facility], 4 4 HOME OUTPATIEN HEALTH T AGENCY HOME [facility] 4 4 DIST OTHER HEALTH DEPT [employer] OFFICE 01294 [place] EMERALD OUTPATIEN 4 4 [place] TIMOTHY T VISIT INTERNAL 15 MED MINUTES HOME [facility], 4 4 [facility] 4 4 DIST OTHER HEALTH DEPT [facility] - 3 3 Y OUTPATI HOSPITAL T OFFICE 98079 [place] [facility] OUTPATIEN 3 3 MEDICAL T VISIT SERV 25 FOUNDATIO MINUTES CRITICAL [facility], ACCESS 3 3 [facility], ACCESS 3 3 [facility], 3 3 DIST OTHER [facility]ALTH [facility] [employer] OFFICE 01589 [facility] OUTPATIEN 3 3 MEDICAL EJ T NEW 45 SERV MINUTES FOUNDATIO HOME [facility], 3 3 DIST OTHER HEALTH DE[facility] CRITICAL [facility], ACCESS 3 3 [facility], [facility] [address]223 [place] HERB[facility] ARGUETA OUTPATIEN 3 3 MEDICAL T VISIT SERV 40 FOUNDATIO MINUTES HOME [facility], 3 3 DIST OTHER HEALTH DEPT [facility] OFFICE 19112 [place] WILMER MAADOR OUTPATIEN 3 3 MEDICAL T VISIT SERV 25 FOUNDATIO MINUTES HOME [facility], 3 3 DIST OTHER HEALTH DEPT [employer] CRITICAL [facility] INC, ACCESS 3 3 [facility], ACCESS 3 3 [facility] ACCESS 3 3 [facility] HOME [facility], 3 3 DIST OTHER HEALTH DEPT [facility] OFFICE [id number] [place] B[place]ON OUTPATIEN 3 3 [facility] T VISIT INTERNAL 15 MED MINUTES HOME [facility] 3 3 [facility] T AGENCY HOME [facility], 3 3 DIST OTHER HEALTH DEPT [facility] OFFICE 76842 ALLRAN JR ALLRAN JR OUTPATIEN 3 3 SAMIRA HOGAN T VISIT 15 MINUTES OFFICE 51798 CRISTIAN CORNEJO BEANJoey CAR OUTPATIEN 3 3 T VISIT CONSULTIN 25 G SERV MINUTES OFFICE 11773 [place] OUTPATIEN 3 3 [facility] VISIT INTERNAL 25 MED MINUTES CRITICAL [facility] ACCESS 3 3 [facility] [place] - 3 3 [facility] CRITICAL [facility] ACCESS 3 3 [facility] - 3 3 [facility] [place] 3 3 [facility] 3 3 DIST [facility] [place] 3 3 [facility] [place] - 3 3 [facility] 3 3 DIST OTHER HEALTH DEPT [facility] KRISSY - 3 3 [facility] OFF[facility] 29207 [place] OUTPATIEN 3 3 [facility] T VISIT INTERNAL 15 MED MINUTES HOSPITAL [place] - 3 3 [facility] [place] - 3 3 [facility] T HOME [facility], 3 3 DIST OTHER HEALTH DEPT [employer] OFFICE [id number] CELIA YANG JR OUTPATIEN 3 3 SAMIRA SAMIRA T VISIT 15 MINUTES HOME [facility], 3 3 DIST OTHER HEALTH DEPT [employer] [facility], 3 3 HOME OUTPATI HEALTH T AGENCY CRITICAL [facility], ACCESS 3 3 [facility], 3 3 DIST OTHER HEALTH DEPT [facility], ACCESS 3 3 [facility] OFFICE 33556 MINH AMADOR OUTPATIEN 3 3 MEDICAL T VISIT SERV 25 FOUNDATIO MINUTES OFFICE 50581 CELIA YANG JR OUTPATIEN 3 3 SAMIRA SAMIRA T VISIT 15 MINUTES CRITICAL [facility], ACCESS 3 3 [facility], 3 3 DIST OTHER HEALTH DEPT [facility], ACCESS 3 3 [facility], ACCESS 3 3 [facility], 3 3 HOME OUTPATI HEALTH [facility] UN[facility] - 3 3 Y [facility] KRISSY - 3 3 [facility] OUTPATIEN [facility] T HOME [facility], 3 3 DIST OTHER HEALTH DEPT [facility] UN[facility] - 3 3 [facility] OFF[facility] 33468 MINH ARGUETA OUTPATIEN 2 2 MEDICAL T VISIT SERV 25 FOUNDATIO MINUTES HOME [facility], 2 2 HOME OUTPATIEN HEALTH T AGENCY OFFICE 80128 CELIA YANG JR OUTPATIEN 2 2 SAMIRA SAMIRA T NEW 30 MINUTES HOME [facility], 2 2 DIST OTHER HEALTH DEPT [facility] HOME [facility], 2 2 HOME OUTPATIEN HEALTH T AGENCY CRITICAL [facility], ACCESS 2 2 [facility] CRITICAL [facility] ACCESS 2 2 [facility] CRITICAL [facility] ACCESS 2 2 [facility] CRITICAL [facility], ACCESS 2 2 [facility] - 2 2 [facility] T OFFICE [address]223 [place] LUZMARIA OUTPATIEN 2 2 MEDICAL XOCHITL T VISIT SERV 15 FOUNDATIO MINUTES HOME [facility], 2 2 DIST OTHER HEALTH DEPT [facility] UN[facility] - 2 2 Y [facility] T OFFICE [address]647 [place] HERBERT KRI OUTPATIEN 2 2 MEDICAL T VISIT SERV 25 FOUNDATIO MINUTES HOME [facility], 2 2 HOME OUTPATIEN HEALTH T AGENCY OFFICE 02007 [place] GUILLEN PERRY OUTPATIEN 2 2 MEDICAL T VISIT SERV 25 FOUNDATIO MINUTES HOME [facility], 2 2 DIST OTHER HEALTH DEPT [facility] EMERGENCY 51756 [facility], 2 2 [facility] HOS HIGH/URGE NT SEVERITY CRITICAL [facility], ACCESS 2 2 [facility] 2 2 HOME OUTPATIEN HEALTH T AGENCY HOME [facility] 2 2 DIST OTHER HEALTH DEPT [facility], - 2 2 [facility] OUT[facility]IEN [facility] T CO HOS EMERGENCY 61706 ANDRE[facility] KEITAO 2 2 CO [facility] T VISIT MODERATE SEVERITY EMERGENCY 63667 [facility], DEPT 2 2 [facility] VISIT [facility] HIGH CO HOS SEVERITY& THREAT FUNCJ HOME [facility], 2 2 DIST OTHER HEALTH DEPT [facility], - 2 2 [facility] OUT[facility]IEN [facility] T CO HOS OFFICE 20532 [facility] OUTPATIEN 2 2 [place] FAMILY CAROL T VISIT MEDICINE 25 P MINUTES OFFICE 02362 [facility] T NEW 20 MINUTES HOME [facility], 2 2 DIST OTHER HEALTH DEPT [facility], 2 2 DIST OTHER [facility]ALTH DEPT [facility], - 2 2 [facility] INPATIENT [facility] CO HOS EMERGENCY 80928 AND[facility] KEITAO 2 2 CO [facility] T VISIT MODERATE SEVERITY EMERGENCY 16796 [facility], 2 2 [facility] HOS HIGH/URGE NT SEVERITY HOSPITAL [facility], - 2 2 [facility] OUTPATIEN [facility] T CO HOS OFFICE 47993 [place] ENDEAN OUTPATIEN 2 2 MEDICAL XOCHITL T NEW 60 SERV MINUTES [facility] UNIVERSIT - 2 2 Y [facility] 2 2 [facility] T OFFICE 20282 [facility] 2 2 [place] FAM[facility] T VISIT MEDICINE 15 P MINUTES HOSPITAL UNIVERSIT - 2 2 Y [facility] T OFFICE 94780 [facility] NURSE HUSSEIN T NEW 45 PRACTITIO MINUTES [facility], - 1 1 [facility] INPATIENT [facility] AND[facility] - 1 1 CO [facility] T OFFICE [address]12 [place] HERBERT KRI [facility] 1 1 MEDICAL T VISIT SERV 40 FOUNDATIO [facility] UNIVERSIT [facility] 1 1 Y INPATIENT [facility] - 0 0 [facility] 0 Y [facility] T OFFICE 95899 [facility] OUTPATI 0 0 [place] FAM[facility] CAROL T VISIT MEDICINE 15 P MINUTES [facility] UN[facility] - 0 0 Y [facility] T OFFICE 56741 [facility] OUTPATIEN 0 0 [place] T VISIT 15 MINUTES OFFICE 92695 [facility] 0 0 [place] T VISIT 15 MINUTES OFFICE 60867 [facility] 0 0 [place] T VISIT 15 MINUTES HOSPITAL UNIVERSIT - 0 0 Y [facility] T
[2017-09-02 16:54] VITALS: BP 108/66
--- OUTSIDE RECORDS SUMMARY | 2017-09-02 16:55 | External Medical Summary Rpt | CCD ---
Author Author , JACQUELYN Organization JACQUELYN Address Unknown Phone [email or web address] Care Team Providers Care Size Worker Name Role Phone [employer] Unavailable Unavailable INC, [employer] Unavailable Unavailable INC, [employer] ALLRAN JR SAMIRA, ALLRAN Unavailable Unavailable JR SAMIRA ALLRAN JR SAMIRA, ALLRAN Unavailable Unavailable JR SAMIRA JAQUEZ HOL, JAQUEZ Unavailable Unavailable HOL BERNERT EJ, BERNERT Unavailable Unavailable EJ BESSON TIMOTHY, BESSON Unavailable Unavailable TIMOTHY MCKEON, MCKEON Unavailable Unavailable MCKEON ALL, MCKEON ALL Unavailable Unavailable [facility] Unavailable Unavailable [facility], [facility] TAI KRIS, TAI Unavailable Unavailable KRIS [...] [facility] AN[facility] OF Unavailable Unavailable THE BL[facility], [facility] ARIANE JR, ARIANE Unavailable Unavailable JR COOK LILIBETH, COOK LILIBETH Unavailable Unavailable KENNY ANTWAN, Unavailable Unavailable KENNY ANTWAN [facility] Unavailable Unavailable [facility], [facility] Unavailable Unavailable ASSOC, [facility] DISANTIS JEWELS, Unavailable Unavailable DISANTIS [...] Unavailable SONY PRICE, Unavailable Unavailable SONY PRICE [facility] Unavailable Unavailable CARE, [facility] Unavailable Unavailable CARE, [facility] Unavailable Unavailable INC, [facility] Unavailable Unavailable HOSPITAL P, [facility] P WALKER RADHA, WALKER RADHA Unavailable Unavailable [facility], Unavailable Unavailable [facility] DAVEY GWE, DAVEY Unavailable Unavailable GWE HOUSMAN KAMILA, HOUSMAN Unavailable Unavailable KAMILA [facility] Unavailable Unavailable CORPORATION, [facility] Unavailable Unavailable CORPORATION, [facility] [employer] Unavailable Unavailable CORPORATION[facility] [employer] Unavailable Unavailable GROUP PS, [facility] PS [facility] Unavailable Unavailable IM[facility]ING [facility], [facility] KERN CAR, KERN CAR [...] PEDRO MAJORS G, MAJORS G Unavailable Unavailable [facility] Unavailable Unavailable SERVICES, [facility] Unavailable Unavailable ASSOCIAT, [facility] MCKEMIE JR KAMILA, Unavailable Unavailable MCKEMIE JR KAMILA CHANTILLY CAROL, Unavailable Unavailable CHANTILL[facility] CAROL [facility] Un[facility] Unavailable [facility], [facility] AVILES KAMILA, AVILES KAMILA Unavailable Unavailable RONY LEVY, RONY Unavailable Unavailable [facility], Unavailable Unavailable [facility] Unavailable Unavailable AMBULANCE SE, [facility] Unavailable Unavailable AMBULANCE SE, [facility] CRISTIAN CORNEJO MD Unavailable [...] CAROL, Unavailable Unavailable SOTINGEANU CAROL [facility] Unavailable Unavailable EMERGENCY PHYS, [facility] EMERGENCY PHYS [facility], Unavailable Unavailable [facility] Unavailable Unavailable CLINIC, [facility] YOO [facility], YOO Unavailable Unavailable [facility] Unavailable Unavailable [facility]OSPITALS, [facility] Unavailable Unavailable SUPPLY, [facility] Unavailable Unavailable SUPPLY, [facility] Unavailable [facility]available MEDICINE , [facility], Unavailable Unavailable [facility] # Unavailable Unavailable [id number], [facility] # [id number] GUILLEN, GUILLEN Unavailable Unavailable GUILLEN PERRY, GUILLEN PERRY Unavailable Unavailable [facility] Unavailable Unavailable 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, [facility] 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 [facility] Unavailable Unavailable AGENCY, [facility] MARIO SANTA, MARIO Unavailable Unavailable [facility] Purpose Continuity of Care Document - 08-29-2010 through 2016 Problems Code Diagnosis DOS Provider Status N189 CHRONIC 08-25-2017 [facility] DISEASE [facility] UNSPECIFIED K580 IRRITABLE 07-25-2017 [facility] BOWEL HEALTH SYNDROME AGENCY WITH DIARRHEA M1990 UNSPECIFIED 07-25-2017 [facility] HOME HEALTH OSTEOARTHRI AGENCY TIS UNSPECIFIED SITE N8110 CYSTOCELE 07-25-2017 [facility] HOME UNSPECIFIED HEALTH AGENCY R159 FULL 07-25-2017 [facility] HOME INCONTINENC HEALTH E OF FECES AGENCY R3981 FUNCTIONAL 07-25-2017 [facility] URINARY HEALTH INCONTINENC AGENCY E I129 HYPERTENSIV 07-16-2017 [facility] [place] [facility] W/STAGE 1-4 [facility] CKD OR UNS CKD M329 SYSTEMIC 07-16-2017 [facility] L[facility]US [facility] ERYTHEMATOS [facility] US UNSPECIFIED M810 AGE-RELATED 07-16-2017 [facility] OSTEOPOROSI [facility] S W/O CURRNT PATH FX N039 CHRONIC 07-16-2017 [facility] NEPHRITIC SERV SYND W/UNS FOUNDATION MORPHOLOGIC CHANGES N183 CHRONIC 07-16-2017 [facility] DISEASE FOUNDATION STAGE 3 MODERATE N250 RENAL 07-16-2017 [facility] OSTEODYSTRO SERV PHY [facility]OUNDATION R809 PROTEINURIA 07-16-2017 [facility] UNSPECIFIED FOUNDATION R8290 UNSPECIFIED 07-16-2017 [facility] ABNORMAL [facility] FINDINGS IN INC URINE M069 RHEUMATOID 06-02-2017 [facility] ARTHRITIS [facility] UNSPECIFIED M3210 SYSTEMIC 06-02-2017 [facility] ERYTHEMATOS US ORGAN/SYS INVLV UNS M4000 POSTURAL 06-02-2017 [facility] KYPHOSIS Neocis SITE UNSPECIFIED M549 DORSALGIA 05-29-2017 [facility] R079 CHEST PAIN 05-29-2017 [place] [facility] IMAGING ASS R091 PLEURISY 05-29-2017 [facility] INC R69 ILLNESS 05-15-2017 [facility] UNSPECIFIED TRANSPORTAT ION SER V55058 UNSPECIFIED 04-30-2017 [facility] ASTIGMATISM [facility] BILATERAL H524 PRESBYOPIA 04-30-2017 [place] [facility] B64783 OTHER LONG 04-30-2017 [facility] [place]M SERV CURRENT FOUNDATION DRUG THERAPY Z961 PRESENCE OF 04-30-2017 [facility] INTRAOCULAR [facility] LENS G8929 OTHER 04-29-2017 [facility] CHRON[facility] PAIN [facility]OUND[facility] L853 XEROSIS 04-29-2017 [facility] CUTIS SERV [facility] M545 LOW BACK 04-29-2017 [facility] R52 PAIN 04-29-2017 [facility] UNSPECIFIED SERV FOUNDATION R531 WEAKNESS 04-29-2017 [facility] E039 HYPOTHYROID 02-19-2017 [facility] ISM PHYSICIANS UNSPECIFIED LA M129 ARTHROPATHY 02-19-2017 [facility] PH[facility] UNSPECIFIED LA M3214 GLOMERULAR 02-19-2017 [facility] DISEASE IN PHYSICIANS SYS LUPUS LA ERYTHEMATOS US N390 URINARY 10-28-2016 [facility] TRACT [facility] INFECTION [facility]ATION SITE NOT SPECIFIED [id number] NONDSPL FX 10-16-2016 [place] [facility] METATARSAL IMAGING ASS RT FT SUBSQT FX RTN [id number] UNS 10-16-2016 [facility] FRACTURE RT PHYSICIANS FOOT GROUP SUBSQT ENC FX ROUTINE HEAL [id number] DISPLACED 09-24-2016 [facility] FX 3RD TECHNOLOGIE METATARSAL S INC RT FT INIT CLOS FX [id number] NONDSPL FX 09-24-2016 [facility] 3RD [facility] METATARSAL INC RT FT INIT ENC CLOS FX [id number] DISPLACED 09-24-2016 [facility] FX 4TH TECHNOLOGIE METATARSAL S INC RT FT INIT CLOS FX [id number] NONDSPL FX 09-24-2016 [facility] 4TH [facility] METATARSAL INC RT FT INIT ENC CLOS FX [id number] NONDSPL FX 09-04-2016 [place] 3RD [facility]ICAL METATARSAL IMAGING ASS RT FT SUBSQT FX RTN [id number] PAIN IN 08-26-2016 [place] RIGHT FOOT MEDICAL IMAGING ASS Z1231 ENCOUNTER 08-20-2016 [place] SCREENING MEDICAL MAMMO MALIG IMAGING ASS NEOPLASM BREAST K449 DIAPHRAGMAT 07-17-2016 [facility] [place] IC HERNIA RADIOLOGY W/O OBSTRUCTION OR GANGRENE R197 DIARRHEA 07-17-2016 [facility] UNSPECIFIED N EMERGENCY PHYS M359 SYSTEMIC 04-30-2016 [facility] INVOLVEMENT SERV CONNECTIVE FOUNDATION TISSUE UNS Z5181 ENCOUNTER 04-30-2016 [facility] FOR SERV THERAPEUTIC FOUNDATION DRUG LEVEL MONITORING B351 TINEA 04-16-2016 [facility] UNGUIUM [id number] PAIN IN 04-16-2016 [facility] LEFT FOOT H109 UNSPECIFIED 04-03-2016 [facility] CONJUNCTIVI INTERNAL TIS MEDI L930 DISCOID 02-21-2016 [facility] L[facility]US PHYSICIANS ERYTHEMATOS LA US J069 ACUTE UPPER 01-24-2016 [facility] RESPIRATORY INTERNAL INFECTION MEDI UNSPECIFIED A499 BACTERIAL 01-18-2016 [facility] INFECTION SERV UNSPECIFIED FOUNDATION K219 GASTRO-ESOP 12-20-2015 [facility] H REFLUX ANESTH OF DISEASE THE BLUE WITHOUT ESOPHAGITIS M2570 OSTEOPHYTE 12-07-2015 [facility]Y UNSPECIFIED JOINT R799 ABNORMAL 11-27-2015 [facility] FINDING OF MEM HOSP BLOOD INC CHEMISTRY UNSPECIFIED R0609 OTHER FORMS 11-21-2015 [facility] OF [facility] [place] INTERNAL MED K210 GASTRO-ESOP 10-31-2015 [facility] HAGEAL SERV REFLUX FOUNDATION DISEASE W/ ESOPHAGITIS R1310 DYSPHAGIA 10-11-2015 COMM[facility] UNSPECIFIED ANESTH OF THE BLUE E860 DEHYDRATION 10-02-2015 [facility] R112 NAUSEA WITH 10-02-2015 [facility] VOMITING PHYSICIANS, UNSPECIFIED PLLC K589 IRRITABLE 09-18-2015 [facility] B[facility]EL PHYSICIANS SYNDROME GROUP WITHOUT DIARRHEA M8580 OTH SPEC 08-30-2015 [facility] D/O BONE PHYSICIANS DENSITY LA STRUCTURE UNS SITE Z23 ENCOUNTER 08-29-2015 [facility] FOR VALLEY IMMUNIZATIO INTERNAL N MED R109 UNSPECIFIED 08-24-2015 [place] ABDOMINAL MEDICAL PAIN IMAGING ASS R9431 ABNORMAL 08-16-2015 [facility] P N959 UNSPECIFIED 08-15-2015 [place] [facility] & INC PERIMENOPAU SYDNI DISORDER A45786 ENCOUNTER 08-15-2015 [place] FOR MEDICAL SCREENING IMAGING ASS FOR OSTEOPOROSI S Z780 ASYMPTOMATI 08-15-2015 [place] C MEDICAL MENOPAUSAL IMAGING ASS STATE Z803 FAMILY 08-15-2015 [place] HISTORY OF MEDICAL MALIGNANT IMAGING ASS NEOPLASM OF BREAST 3829 UNSPECIFIED 08-07-2015 [facility] OTITIS VALLEY MEDIA INTERNAL MEDI 63535 ESOPHAGEAL 08-07-2015 [facility] REFLUX VALLEY INTERNAL MEDI 5853 CHRONIC 07-28-2015 [place] KIDNEY [facility] DISEASE INC STAGE III (MODERATE) 5990 URINARY 07-28-2015 [place] TRACT [facility] INFECTION INC SITE NOT SPECIFIED 07422 07-28-2015 [facility] TRAN[facility] ION SER 5641 IRRITABLE 07-25-2015 [facility] SYNDROME AGENCY 47509 UNS PROLAPS 07-25-2015 [facility] W/O MENTION AGENCY UTERN PROLAPS 10803 UNSPECIFIED 07-25-2015 [facility] ARTHROPATHY AGENCY SITE UNSPECIFIED 7242 LUMBAGO 07-25-2015 [facility] INTERNAL MEDI 23857 FULL 07-25-2015 [facility] INCONTINENC HEALTH E OF FECES AGENCY 21941 UNSPECIFIED 07-25-2015 [facility] URINARY HEALTH INCONTINENC AGENCY E V7610 UNSPECIFIED 07-25-2015 [facility]AST [facility] SCREENING INTERNAL MEDI V8281 SPECIAL 07-25-2015 [facility] SCREENING VALLEY FOR INTERNAL OSTEOPOROSI MEDI S 7100 SYSTEMIC 07-11-2015 [facility] LUPUS HEALTH DEPT ERYTHEMAT[place] [address] OSTEOARTHRO 07-11-2015 [facility] S UNSPEC HEALTH DEPT WHETHER HEATING AND COOLING TECHNICIAN GEN/LOC UNSPEC SITE 2449 UNSPECIFIED 05-31-2015 [facility] HYPOTHYROID [place]M 88584 OTHER 04-25-2015 [facility] CHRONIC SERV PAIN FOUNDATION 31498 UNSPECIFIED 04-19-2015 [facility] P [place] 7802 SYNCOPE AND 04-19-2015 [facility] COLLAPSE [facility] [place] [address] NAUSEA 04-19-2015 [facility] ALONE [facility] [place] [address] DIAB W/O 03-30-2015 [facility] COMP TYPE STATES II/UNS NOT MEDICAL STATED SUPPLY UNCNTRL 7140 RHEUMATOID 03-01-2015 [place] [address] UNSPECIFIED 02-22-2015 [facility] ARTHROPATHY INTERNAL MULTIPLE MED SITES 06264 KYPHOSIS 02-06-2015 [facility] [employer] POSTURAL 49502 HTN CKD UNS 01-09-2015 [facility] W/CKD SERV STAGE I FOUNDATION THRU STAGE IV/UNS 5829 CHRONIC GLN 01-09-2015 [facility] W/UNSPEC SERV PATHOLOGICA FOUNDATION L LESION KIDNEY 4659 ACUTE URIS 11-29-2014 [place] [facility] OF SERV UNSPECIFIED FOUNDATION SITE 1101 DERMATOPHYT 10-12-2014 [facility] OSIS OF NAIL 7038 OTHER 10-12-2014 [facility] SPECIFIED DISEASE OF NAIL 7295 PAIN IN 10-12-2014 [facility] SOFT TISSUES OF LIMB 59992 OBSTRUCTIVE 09-16-2014 [facility] APNEA MEDICAL EQUIPME 03005 OTHER 09-16-2014 [facility] DYSPNE[facility] AND HOME MEDICAL RESPIRATORY EQUIPME ABNORMALITI ES 4011 ESSENTIAL 08-15-2014 [facility] HYPERTENSIO SERV N, BENIGN FOUNDATION 7910 PROTEINURIA 08-15-2014 [place] [facility] FOUNDATION 7919 OTHER 08-15-2014 [facility] NONSPECIFIC [facility] FINDING INC EXAMINATION OF URINE 77122 DYSPHAGIA 08-11-2014 [facility] UNSPECIFIED MEM HOSP INC 75597 AFTER-CATAR 07-28-2014 [facility] VISION 88068 NEPHRITIS&N 05-31-2014 [facility] EPHROPATHY- SERV OTH SPEC FOUNDATIO PATH LES DZ CE 7813 LACK OF 03-25-2014 [facility] COORDINATIO HOME N MEDICAL EQUIPME 87702 ANEMIA OF 01-20-2014 [facility] OTHER SERV CHRONIC FOUNDATIO DISEASE 2724 OTHER AND 12-07-2013 [facility] UNSPECIFIED VALLEY INTERNAL HYPERLIPIDE MED BRIDGETTE 3814 NONSUPPRATV 12-07-2013 [facility] OTITIS [facility] MEDIA NOT INTERNAL SPEC MED ACUT/CHRON 4019 UNSPECIFIED 12-07-2013 [facility] ESSENTIAL VAL[facility] HYPERTENSIO INTERNAL N MED 4720 CHRONIC 12-07-2013 [facility] RHINITIS VALLEY INTERNAL MED 7851 PALPITATION 10-20-2013 [facility] INC, [place] [address] HYPERPARATH 10-13-2013 [facility] INC, YROIDISM [facility] UNSPECIFIED [facility]RE[facility] [place] HOS 2689 UNSPECIFIED 10-13-2013 [facility] INC, VITAMIN D [place] [address]4975 ANEMIA IN 10-13-2013 [facility] INC, CHRONIC [facility] KIDNEY [facility] CO DISEASE HOS 3384 CHRONIC 09-27-2013 [facility] PAIN SERV SYNDROME FOUNDATIO 7226 DEGENERATIO 09-27-2013 [place] [facility] N SERV INTERVERTEB FOUNDATIO RAL DISC SITE UNSPEC 98276 OTHER 06-30-2013 [facility] INC, ABNORMAL [facility] FINDING [facility]REY [facility] L EXAM BREAST 76109 LUMP OR 06-25-2013 [place] IN RADIOLOGY BREAST ASSOCIAT 1103 DERMATOPHYT 06-07-2013 [facility] OSIS OF [place] GROIN AND INTERNAL PERIANAL MED AREA 4555 EXTERNAL 05-05-2013 [facility] HEMORRHOIDS SAMIRA WITH OTHER COMPLICATIO N 2722 MIXED 05-04-2013 CRISTIAN CORNEJO HYPERLIPIDE BRIDGETTE CONSULTING SERV 64749 CORONARY 05-04-2013 CRISTIAN HAYNES MD OSIS RUBY CONSULTING CORONARY SERV ARTERY V7281 PRE-OPERATI 05-04-2013 CRISTIAN BARAJAS MD CARDIOVASCU CONSULTING LAR SERV EXAMINATION 40009 DYSFNCT 04-23-2013 [facility] STGES/AROUS AL FRM SLEEP 56305 HYPOXEMIA 04-23-2013 [facility] V8533 BODY MASS 04-23-2013 [facility] [id number] HOSPITAL ADULT 5859 CHRONIC 04-19-2013 [facility] INC, KIDNEY [facility] DISEASE [facility] UNSPECIFIED HOS 29848 UNSPECIFIED 04-16-[address] [facility] OSTEOPOROSI S 56114 CHEST PAIN 04-16-2013 [facility] UNSPECIFIED CARDIOLOGY CLINIC 4160 PRIMARY 04-14-2013 [facility] HYPERTENSIO HOSPITAL N 61527 PRECORDIAL 04-14-2013 [facility] 65375 OTHER 04-14-2013 [facility] [place] NONSPECIFIC RADIOLOGY ABNORMAL FINDING OF LUNG FIELD 90937 SHORTNESS 03-24-2013 [facility] 7823 EDEMA 03-09-2013 CRISTIAN CORNEJO [place]V 62434 OTHER CHEST 03-01-2013 [facility] PAIN [place] INTERNAL MED 19065 OBESITY, 02-27-2013 [facility] UNSPECIFIED EMERGENCY SERVICES 44374 [facility] DZ STAGE I-IV/UNS 4556 UNSPEC 02-26-2013 [place] [facility] ANESTHESIA WITHOUT GROUP PS MENTION COMPLICATIO N 4558 UNSPECIFIED 02-26-2013 [facility] WITH OTHER COMPLICATIO N V641 SURG/OTH 02-26-2013 [facility] BECAUSE CONTRAINDIC ATION 4550 INTERNAL 02-10-2013 K[facility]JALTOYIN JR HEMORRHOIDS SAMIRA WITHOUT MENTION COMP 485 BRONCHOPNEU 01-19-2013 [facility] [place] [facility] ORGANISM INTERNAL UNSPECIFIED MED 08086 OTHER 01-19-2013 [facility] MALAISE AND [facility] FATIGUE INTERNAL MED 4293 CARDIOMEGAL 01-18-2013 [facility] Y RADIOLOGY ASSOCIAT 51250 OTHER 01-18-2013 [facility] DISEASES OF RADIOLOGY LUNG NOT ASSOCIAT ELSEWHERE CLASSIFIED 6100 SOLITARY 01-13-2013 [facility] INC, CYST OF [place] [address] UNSPECIFIED 01-06-2013 [facility] INC, ABNORMAL [place] [address] DYSPHAGIA 12-09-2012 [facility] INC, DUE TO [facility]ERS[facility] CEREBROVASC [facility] CO ULAR HOS DISEASE 5533 DIAPHRAGMAT 12-09-2012 [facility] INC, EDUARD W/O HANGERS[facility]ITH MENTION [facility] CO OBSTRUCTION HOS /GANGREN 27561 OTHER 12-08-2012 [facility] SPECIFIED RADIOLOGY DISORDERS ASSOCIAT OF BREAST V1589 OTH SPEC 12-08-2012 [facility] INC, PERS HX H[facility]ERS[facility] PRESENTING [facility] CO HAZARDS HOS HEALTH OTH V163 FAMILY 12-08-2012 [facility] INC, HISTORY OF H[facility]ERS[facility] MALIGNANT [facility]RE[facility] CO NEOPLASM OF HOS BREAST V7611 SCREENING 12-08-2012 [facility] INC, MAMMOGRAM HANGERSMITH FOR [facility]RE[facility] CO HIGH-RISK HOS PATIENT V7612 OTHER 12-08-2012 [facility] SCREENING RADIOLOGY MAMMOGRAM ASSOCIAT 7213 LUMBOSACRAL 12-01-2012 [facility] SPONDYLOSIS WITHOUT MYELOPATHY 99248 DISPLCMT 12-01-2012 [facility] LUMBAR SERV INTERVERT FOUNDATIO DISC W/O MYELOPATHY 55160 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 [facility] OSACRAL INTERVERTEB RAL DISC 61044 OTHER&UNSPE 12-01-2012 [facility] DISORDER OF LUMBAR REGION 78180 DIVERTICULO 11-17-2012 [facility] SIS OF MEM HOSP COLON INC 99687 OTHER 11-17-2012 [facility] SYMPTOMS ANESTH OF INVOLVING THE BLUE DIGESTIVE SYSTEM OTHER V160 FM HX 11-17-2012 [facility] MALIGNANT [facility] HOSP NEOPLASM INC GASTROINTES TINAL TRACT V7651 SPECIAL 11-17-2012 [facility] SCREENING MEM HOSP FOR INC MALIGNANT NEOPLASMS COLON 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 [facility] THESIS 08191 NEPHROTIC 11-05-2012 [facility] SYND W/OTH SERV PATHAL LES FOUNDATIO DZ CLASS ELSW 73693 MUSCLE 11-05-2012 [facility] WEAKNESS SERV (GENERALIZE FOUNDATIO D) 4553 EXTERNAL 10-19-2012 [facility] JR HEMORRHOIDS SAMIRA WITHOUT MENTION COMP 7856 ENLARGEMENT 10-05-2012[place] OF [facility] RADIOLOGY NODES ASSOCIAT 7866 SWELLING, 10-05-2012 [facility] INC, MASS, OR HANGERSMITH LUMP IN [facility] CHEST HOS V4576 ACQUIRED 10-05-2012 [facility], ABSENCE OF H[facility]ITH ORGAN, LUNG [facility] HOS V4589 OTHER 09-25-2012 [facility] INC, POSTSURGICA HANGERSMITH L STATUS [facility] OTHER HOS V571 OTHER 09-24-2012 [facility] INC, PHYSICAL H[facility] THERAPY [facility] HOS 4421 ANEURYSM OF 09-21-2012 [facility] ARTERY 38402 OSTEOARTHRO 09-03-2012 [facility] S UNSPEC SERV WHETHER FOUNDATIO GEN/LOC SHLDR REGION 92375 OSTEOARTHRO 09-03-2012 [facility] SIS UNSPEC SERV WHETHER FOUNDATIO GEN/LOC LOWER LEG 33437 EFFUSION OF 09-03-2012 [facility] LOWER LEG SERV JOINT FOUNDATIO 37336 PAIN IN 09-03-2012 [facility] JOINT, SERV SHOULDER FOUNDATIO REGION 76304 PAIN IN 09-03-2012 [facility] JOINT, SERV LOWER LEG FOUNDATIO 7249 OTHER 09-03-2012 [facility] UNSPECIFIED SERV BACK FOUNDATIO DISORDER 06057 EXOSTOSIS 09-03-2012 [facility] OF SERV UNSPECIFIED FOUNDATIO SITE 7384 ACQUIRED 09-03-2012 [facility] SPONDYLOLIS SERV THESIS FOUNDATIO 71023 DEHYDRATION 08-04-2012 [facility], [facility] 5589 OTH&UNSPEC 08-04-2012 [facility] INC, NONINFECTIO HANGERSMITH US [facility] GASTROENTER HOS ITIS&COLITI S 67020 VOMITING 08-04-2012 [facility] INC, ALONE [facility] 4580 ORTHOSTATIC 06-19-2012 [facility] HOSPITAL HYPOTENSION 5849 ACUTE 06-19-2012 [facility] KIDNEY HOSPITAL FAILURE UNSPECIFIED 2720 PURE 06-05-2012 [facility] INC, HYPERCHOLES [facility] TEROLEMIA [facility] HOS 586 UNSPECIFIED 04-14-2012 CRISTIAN CORNEJO RENAL MD FAILURE CONSULTING SRV 00523 OTH & UNS E 04-08-2012 [facility] INC, COLI H[facility]ERS[facility] INFECTION [facility] CLASS ELSW HOS UNS SITE 2762 ACIDOSIS 04-08-2012 [facility], HANGERSMITH [facility] 2767 HYPERPOTASS 04-08-2012 [facility], EMIA HANGERSMITH [facility] 4589 UNSPECIFIED 04-07-2012 [facility] HYPOTENSION 7862 COUGH 04-07-2012 [facility] 62009 ANEURYSM OF 03-23-2012 [facility] VISCERAL [facility] ARTERY 53024 UNSPECIFIED 02-13-2012 [facility] OTALGIA FAMILY MEDICINE P 6256 FEMALE 02-12-2012 [place] [address] URGE 02-12-2012 [facility] [place] [address] URINARY 02-12-2012 [place] [address] URGENCY OF 02-12-2012 [facility] NURSE URINATION PRACTITIONE R GR 7336 TIETZES 07-10-2011 [facility], DISEASE HANGERSMITH [facility] 73650 UNSPECIFIED 01-03-2011 [facility] PYELONEPHRI TIS 6826 CELLULITIS 01-03-2011 [facility] AND ABSCESS FAMILY OF LEG MEDICINE P EXCEPT FOOT 6954 LUPUS 01-03-2011 [facility] ERYTHEMAT[facility] SERV US FOUNDATIO 84248 SWELLING OF 01-03-2011 [facility] 7931 NONSPEC 01-03-2011 [facility] OTH EXAM [facility] BODY STRUCT LUNG FIELD 43939 CRAMP OF 11-06-2010 [facility] 14240 DIARRHEA 11-06-2010 [facility] V5865 LONG-TERM 11-06-2010 [facility] USE OF HOSPITAL STEROIDS V5869 LONG-TERM 11-06-2010 [facility] (CURRENT) HOSPITAL USE OF OTHER MEDICATIONS V5883 ENCOUNTER 11-06-2010 [facility] THERAPEUTIC DRUG MONITORING 32329 NAUSEA WITH 10-02-2010 [facility] V7260 LABORATORY 10-02-2010 [place] [facility] UNSPECIFIED 4619 ACUTE 09-27-2010 [facility] SINUSITIS, FAMILY UNSPECIFIED MEDICINE P 60665 NUCLEAR 09-05-2010 [facility] SCLEROSIS 3669 UNSPECIFIED 09-04-2010 [facility] 7850 UNSPECIFIED 08-29-2010 [facility] TACHYCARDIA Medications Na ND Rx Da Fi [...] AT 60 15 15 FA E 1 DE SA 20 LY RA 0 H MG [...] # G TA 10 BL 04 ET Procedures Procedure DOS Code Location Performer Comment DISPBL T4535 [facility]KATH[facility] 7 HOME HOME ELD/GUARD HEALTH HEALTH /PAD/UNDG AGENCY AGENCY RMNT INCONT EA RENAL 79329 [facility] FUNCTION 7 [facility] PANEL INC INC URNLS DIP 05746 [facility]SY REY 7 [facility] STICK/TAB INC INC LET REAGENT AUTO MICROSCOP Y PROTEIN 79517 [facility] REY XCPT 7 [facility] REFRACTOM INC INC ETRY SERUM PLASMA/WH L BLD BLOOD 23150 [facility] REY COUNT 7 [facility] COMPLETE INC INC AUTO&AUTO DIFRNTL WBC CULTURE 94472 KRISSY KRISSY BACTERIAL 7 [facility] INC INC QUANTTATI VE COLONY COUNT URINE COLLECTIO 66971 KRISSY REY N VENOUS 7 [facility] BLOOD INC INC VENIPUNCT URE CREATININ 84811 KRISSY REY E OTHER 7 [facility] SOURCE INC INC PWR E2382 HOVEROUND HOVEROUND TUBE 7 PNEUMATIC CORPORATI CORPORATI DRIVE ON ON WHEEL TIRE REPL EACH PWR E2381 HOVEROUND HOVEROUND PNEUMATIC 7 DRIVE CORPORATI CORPORATI WHEEL ON ON TIRE REPL ONLY EACH RADIOLOGI 65956 [place] MCKE[place] C EXAM 7 MEDICAL CHEST 2 IMAGING VIEWS ASS FRONTAL&L ATERAL NONEMERGE A0130 FEDERATED FEDERATED NCY 7 TRANS TRANSPORT TRANSPORT SERVBLUEG ATION: ATION SER NATA Carrasquillo VAN DISPBL T4535 [facility] 7 HOME HOME ELD/GUARD HEALTH HEALTH /PAD/UNDG AGENCY AGENCY RMNT INCONT EA NONEMERGE A0130 FEDERATED FEDERATED NCY 7 TRANS TRANSPORT TRANSPORT SERVBLUEG ATION: ATION SER NATA Carrasquillo VAN VISUAL 82449 [place] ARI[place] FIELD XM 7 MEDICAL JR UNI/BI SERV W/INTERP FOUNDATIO EXTENDED N EXAM NONEMERGE A0130 FEDERATED FEDERATED NCY 7 TRANS TRANSPORT TRANSPORT SERVBLUEG ATION: ATION SER NATA Carrasquillo VAN COMPUTERI 33462 [place] ARIANE ZED 7 MEDICAL JR OPHTHALMI SERV C IMAGING FOUNDATIO RETINA N NONEMERGE A0130 FEDERATED FEDERATED NCY 7 TRANS TRANSPORT TRANSPORT SERVBLUEG ATION: ATION SER NATA Carrasquillo VAN DISPBL T4535 [facility] 7 HOME HOME ELD/GUARD HEALTH HEALTH /PAD/UNDG [place] [address] COMBINED COMBINED TRIIODOTH 7 PHYSICIAN PHYSICIAN YRONINE S LA S LA T3 TOTAL TT3 LIPID 18391 COMBINED COMBINED PANEL 7 PHYSICIAN PHYSICIAN S LA S LA BLOOD 17867 COMBINED COMBINED COUNT 7 PHYSICIAN PHYSICIAN COMPLETE S LA S LA AUTO&[place] [address] COMBINED COMBINED FREE 7 PHYSICIAN PHYS[place] [address] COMBINED COMBINED THYROID 7 PHYSICIAN PHYSICIAN STIMULATI S LA S LA NG HORMONE TSH COMPREHEN 70096 COMBINED COMBINED SIVE 7 PHYSICIAN PHYSICIAN METABOLIC S LA S LA PANEL PWR WC E2366 HOVEROUND HOVEROUND ACSS 7 BATTRY CORPORATI CORPORATI CHRGR 1 ON ON MODE W/ONLY 1 BATTRY COMPREHEN 14546 [place] SIVE 7 HEALTHCAR HEALTHCAR METABOLIC E E PANEL [facility] DXA BONE 93326 [place] GUILLEN DENSITY 7 MEDICAL STUDY 1/> SERV SITES FOUNDATIO AXIAL N SKEL CREATININ 52046 [place] E OTHER 7 HEALTHCAR HEALTHCAR SOURCE E E [facility] C-REACTIV 23403 [place] E PROTEIN 7 HEALTHCAR HEALTHCAR E E [facility] COLLECTIO 07274 [place] N VENOUS 7 HEALTHCAR HEALTHCAR BLOOD E E VENIPUNCT [facility] URE SEDIMENTA 72837 [place] TION RATE 7 HEALTHCAR HEALTHCAR RBC E E AUTOMATED [facility] FLUORESCE 82440 [place] NT 7 HEALTHCAR HEALTHCAR NONNFCT E E AGT ANTB [facility] SCREEN EA ANTIBODY COMPLEMEN 01544 [place] T ANTIGEN 7 HEALTHCAR HEALTHCAR EACH E E COMPONENT [facility] BLOOD 11634 [place] COUNT 7 HEALTHCAR HEALTHCAR COMPLETE E E AUTO&AUTO [facility] DIFRNTL WBC NONEMERGE A0130 FEDERATED FEDERATED NCY 7 TRANS TRANSPORT TRANSPORT SERVBLUEG ATION: ATION SER NATA STEINERNLS DIP 17148 [place] 7 HEALTHCAR HEALTHCAR STICK/TAB E E LET [facility] REAGENT AUTO MICROSCOP Y PROTEIN 64463 [facility] TOTAL 7 HEALTHCAR HEALTHCAR XCPT E E [facility] ETRY URINE DISPBL T4535 [facility] 7 HOME HOME ELD/GUARD HEALTH HEALTH /PAD/UNDG AGENCY AGENCY RMNT INCONT EA NONEMERGE A0130 FEDERATED FEDERATED NCY 6 TRANS TRANSPORT TRANSPORT SERVBLUEG ATION: ATION SER NATA WHEELCLAUDINE R VAN RENAL 26740 KR[facility]SY REY FUNCTION 6 [facility] PANEL INC INC RADEX 27016 EILEEN MCKEON FOOT 6 MEDICAL COMPLETE IMAGING MINIMUM 3 ASS VIEWS URNLS DIP 01873 [facility]SY REY 6 [facility] STICK/TAB INC INC LET REAGENT AUTO MICROSCOP Y PROTEIN 05070 KRISSY REY XCPT 6 [facility] REFRACTOM INC INC ETRY SERUM PLASMA/WH L BLD SUSCEPTIB 33377 KRISSY REY LTY STDY 6 [facility] ANTIMICRB INC INC IAL MICRO/AGA R DILUTJ BLOOD 22209 KR[facility]SY REY COUNT 6 [facility] COMPLETE INC INC AUTO&AUTO DIFRNTL WBC CULTURE 70280 KR[facility]SY REY BACTERIAL 6 [facility] INC INC QUANTTATI VE COLONY COUNT URINE COLLECTIO 99351 KRISSY REY N VENOUS 6 [facility] BLOOD INC INC VENIPUNCT URE CREATININ 40915 KRISSY REY E OTHER 6 [facility] SOURCE INC INC CULTURE 39751 KRISSY REY BCT 6 [facility] ISOL&PRSM INC INC PTV ID ISOLATE EA URINE WALKING L4360 [facility] BOOT 6 TECHNOLOG TECHNOLOG PNEUMATC IES INC IES INC &/ VACUUM PREFAB CUSTM FIT ORTHOTIC 84762 KRISSY REY MGMT&NICK 6 [facility] [place] UXTR INC INC LXTR&/TRN K EA 15 RADEX 49245 EILEEN MCKEON ALL FOOT 6 MEDICAL COMPLETE IMAGING MINIMUM 3 ASS VIEWS CAST Q4038 [facility] MAD SUPPLIES 6 PHYSICIAN SHORT LEG S GROUP CAST ADULT FIBERGLAS S WALKER E0135 R[facility] R[facility] FOLDING 6 HOME HOME ADJUSTABL MEDICAL MEDICAL E OR EQUIPME EQUIPME FIXED HEIGHT RADEX 58660 [place] ALL FOOT 6 MEDICAL COMPLETE IMAGING MINIMUM 3 ASS VIEWS SCREENING G0202 [place] KENNY 6 MEDICAL ANTWAN MAMMOGRAP IMAGING HY MARIA DEL ROSARIO ASS INCL CAD WHEN PERFORMD COMPUTER- 19943 [place] KENNY AIDED 6 MEDICAL ANTWAN DETECTION IMAGING ASS SCREENING MAMMOGRAP HY NONEMERG A0120 FEDERATED FEDERATED TRNSPRT: 6 MINI-BUS TRANSPORT TRANSPORT MTN ATION SER ATION SER AREA/OTH SYS CREATININ 03305 [facility] E OTHER 6 Y Y [facility] CREATINE 78111 [facility] KINASE 6 Y Y TOTAL [facility] [place] [address] [facility] PARATHORM 6 Y Y ONE [facility] C-REACTIV 54517 [facility] E PROTEIN 6 Y Y [facility] 25 26810 [facility] HYDROXY 6 Y Y INCLUDES HOSPITAL HOSPITAL FRACTIONS IF PERFORMED COLLECTIO 37236 [facility] N VENOUS 6 Y Y BLOOD [facility] VENIPUNCT URE SEDIMENTA 22116 [facility] TION RATE 6 Y Y RBC [facility] AUTOMATED FLUORESCE 78288 [facility] NT 6 Y Y NONNFCT [facility] AGT ANTB SCREEN EA ANTIBODY COMPLEMEN 17695 [facility] T ANTIGEN 6 Y Y EACH [facility] COMPONENT URNLS DIP 14010 [facility] 6 Y Y STICK/TAB [facility] LET REAGENT AUTO MICROSCOP Y BLOOD 47214 [facility] COUNT 6 Y Y COMPLETE [facility] [place] [address] [facility] BLOOD/URI 6 Y Y C ACID [facility] PROTEIN 91165 [facility] TOTAL 6 Y Y XCPT [facility] REFRACTOM ETRY URINE RENAL 80722 [facility] FUNCTION 6 Y Y PANEL [facility] NONEMERGE A0130 FEDERATED FEDERATED NCY 6 TRANS TRANSPORT TRANSPORT SERVBLUEG ATION: ATION SER NATA WHEELCHAI R VAN HEPATIC 74518 [facility] FUNCTION 6 Y Y PANEL HOSPITAL [facility]OSPITAL CALCIUM 88145 [facility] IONIZED 6 Y Y HOSPITAL HOSPITAL ADLT SZD T4526 [facility] DIS[facility]BL 6 HOME HOME INCONT HEALTH HEALTH PROD AGENCY AGENCY UNDWEAR MED EA INCONTINE T4541 [facility] NCE 6 HOME HOME PRODUCT HEALTH HEALTH DISPOSABL [place] [address] [place] TANESHA ABDOMEN & 6 RADIOLOGY RHO PELVIS W/O CONTRAST MATERIAL NONEMERGE A0130 FEDERATED FEDERATED NCY 6 TRANS TRANSPORT TRANSPORT SERVBLUEG ATION: ATION SER NATA SANDRA R VAN DISPBL T4535 [facility] 6 HOME HOME ELD/GUARD HEALTH HEALTH /PAD/UNDG AGENCY AGENCY RMNT INCONT EA PROTEIN 69527 [facility] TOTAL 6 Y Y XCPT [facility] REFRACTOM ETRY URINE NONEMERGE A0130 FEDERATED FEDERATED NCY 6 TRANSPORT TRANSPORT TRANSPORT ATION: ATION SER ATION SER SANDRA Carrasquillo [place] BLOOD 02136 [facility] COUNT 6 Y Y COMPLETE [facility] AUTO&AUTO DIFRNTL WBC URNLS DIP 66871 [facility] 6 Y Y STICK/TAB [facility] LET REAGENT AUTO MICROSCOP Y COMPREHEN 96990 [facility] SIVE 6 Y Y METABOLIC [facility] PANEL COMPLEMEN 03406 [facility] T ANTIGEN 6 Y Y EACH HOSPITAL HOSPITAL COMPONENT FLUORESCE 88031 [facility] NT 6 Y Y NONNFCT [facility] AGT ANTB SCREEN EA ANTIBODY SEDIMENTA 60822 [facility] TION RATE 6 Y Y RBC HOSPITAL [facility] AUTOMATED COLLECTIO 14167 [facility] N VENOUS 6 Y Y BLOOD [facility] VENIPUNCT URE C-REACTIV 40257 [facility] E PROTEIN 6 Y Y HOSPITAL HOSPITAL CREATININ 16668 [facility] E OTHER 6 Y Y SOURCE [facility] HOSPITAL DEBRIDEME 06360 [place] TAI NT NAIL 6 YONY KRIS ANY METHOD 6/> NONEMERGE A0130 FEDERATED FEDERATED NCY 6 TRANSPORT TRANSPORT TRANSPORT ATION: ATION SER ATION SER SANDRA AKBAR NONEMERGE A0130 FEDERATED FEDERATED NCY 6 TRANSPORT TRANSPORT TRANSPORT ATION: ATION SER ATION SER GERALDOGarrett AKBAR URNLS DIP 48432 [facility] REY 6 [facility] STICK/TAB INC INC LET REAGENT AUTO MICROSCOP Y DISPBL T4535 [facility] 6 HOME HOME ELD/GUARD HEALTH HEALTH /PAD/UNDG AGENCY AGENCY RMNT INCONT EA BLOOD 93317 COMBINED COMBINED COUNT 6 PHYSICIAN PHYSICIAN COMPLETE S LA S LA AUTO&AUTO DIFRNTL WBC COMPREHEN 21328 COMBINED COMBINED SIVE 6 PHYSICIAN PHYSICIAN [place] [address] COMBINED COMBINED THYROID 6 PHYSICIAN PHYSICIAN STIMULATI S LA S LA NG HORMONE TSH NONEMERGE A0130 FEDERATED FEDERATED NCY 6 TRANSPORT TRANSPORT TRANSPORT ATION: ATION SER ATION SER SANDRA AKBAR DEBRIDEME 09653 [place] TAI NT NAIL 6 YONY KRIS [...] ATION: ATION SER ATION SER SANDRA AKBAR RENAL 05658 KR[facility]SY REY FUNCTION 6 [facility] PANEL INC INC BLOOD 21389 KRISSY REY COUNT 6 [facility] COMPLETE INC INC AUTO&AUTO DIFRNTL WBC URNLS DIP 21225 KR[facility]SY REY 6 [facility] STICK/TAB INC INC LET REAGENT AUTO MICROSCOP Y SUSCEPTIB 33074 KRISSY REY LTY STDY 6 [facility] ANTIMICRB INC INC IAL MICRO/AGA R DILUTJ PROTEIN 71808 KRISSY REY XCPT 6 [facility] REFRACTOM INC INC ETRY SERUM PLASMA/WH L BLD COLLECTIO 22674 KRISSY REY N VENOUS 6 [facility] BLOOD INC INC VENIPUNCT URE CULTURE 64420 KRISSY REY BCT 6 [facility] ISOL&PRSM INC INC PTV ID ISOLATE EA URINE CREATININ 56916 KRISSY REY E OTHER 6 [facility] SOURCE INC INC CULTURE 26117 KRISSY REY BACTERIAL 6 [facility] INC INC QUANTTATI VE COLONY COUNT URINE ANES 46418 ON LICENSE OF [facility] UPPER GI 6 ANESTH REE ENDOSCOPY OF THE PROXIMAL BLUE TO DUODENUM INFLUENZA G8484 [facility] IMMUN 6 YONY YONY NOT ADMINISTE RED RSN NOT GIVEN DEBRIDEME 28831 [facility] TAI NT NAIL 6 YONY KRIS ANY METHOD 6/> CURRENT 1036F [facility] TOBACCO 6 YONY YONY NON-USER CAD CAP COPD PV DM BMI DOC G8420 [facility] [facility] W/I 6 YONY KRIS NORMAL IKER & NO F/U PLAN REQUIRED ELIG CLIN G8427 [facility] T[facility] ATTSTS 6 YONY KRIS DOC M REC OBTD UPD/REV PT MEDS PNEUMOCOC 4040F [facility] T[facility] KELLEE 6 YONY KRIS VACCINE ADMIN RCVD PRIOR DISPBL T4535 [facility] 6 HOME HOME ELD/GUARD HEALTH HEALTH /PAD/UNDG AGENCY AGENCY RMNT INCONT EA BASIC 07864 KRISSY REY METABOLIC 6 [facility] PANEL INC INC CALCIUM TOTAL BLOOD 24665 KRISSY REY COUNT 6 [facility] COMPLETE INC INC AUTO&AUTO DIFRNTL WBC COLLECTIO 15914 KRISSY REY N VENOUS 6 [facility] BLOOD INC INC VENIPUNCT URE NONEMERG A0120 FEDERATED FEDERATED TRNSPRT: 6 MINI-BUS TRANSPORT TRANSPORT MTN ATION SER ATION SER AREA/OTH SYS SEDIMENTA 36859 COMBINED COMBINED TION RATE 6 PHYSICIAN PHYSICIAN [place] [address] COMBINED COMBINED THYROID 6 PHYSICIAN PHYSICIAN STIMULATI S LA S LA NG HORMONE TSH COMPREHEN 81673 COMBINED COMBINED SIVE 6 PHYSICIAN PHYSICIAN METABOLIC S LA S LA PANEL BLOOD 30981 COMBINED COMBINED COUNT 6 PHYSICIAN PHYSICIAN COMPLETE S LA S LA AUTO&AUTO DIFRNTL WBC PWR E2382 HOVEROUND HOVEROUND TUBE 6 PNEUMATIC CORPORATI CORPORATI DRIVE ON ON WHEEL TIRE REPL EACH PWR E2391 HOVEROUND HOVEROUND SOLID 6 ANNMARIE CORPORATI CORPORATI TIRE ON ON REPLACEME NT ONLY EACH REPR/SRVC K0739 HOVEROUND HOVEROUND DME NOT 6 O2 RQR CORPORATI CORPORATI TECH ON ON CMPNT PER 15 MINS PWR E2381 HOVEROUND HOVEROUND PNEUMATIC 6 [address] CORPORATI CORPORATI WHEEL ON ON TIRE REPL ONLY EACH PWR E2366 HOVEROUND HOVEROUND ACSS 6 BATTRY CORPORATI CORPORATI CHRGR 1 ON ON MODE W/ONLY 1 BATTRY PWR E2365 HOVEROUND HOVEROUND WHLCHAIR 6 ACSS U-1 CORPORATI CORPORATI SEALED ON ON LEAD ACID BATTRY EA COLLECTIO 37036 [facility] N VENOUS 5 Y Y [facility] VENIPUNCT URE CHROMATOG 05223 [facility] 5 Y Y [facility] 1 ANALYTE KARLENE NONEMERGE A0130 FEDERATED FEDERATED NCY 5 TRANSPORT TRANSPORT TRANSPORT ATION: ATION SER ATION SER SANDRA AKBAR NONEMERG A0120 FEDERATED FEDERATED TRNSPRT: 5 MINI-BUS TRANSPORT TRANSPORT MTN ATION SER ATION SER AREA/OTH SYS ANES 06224 [facility] ZIMMER FREDY UPPER GI 5 ANESTH ENDOSCOPY OF THE PROXIMAL BLUE TO DUODENUM COMPREHEN 13451 KR[facility] REY SIVE 5 [facility] [place] [address] KRISSY REY AMYLASE 5 [place] [address] KRISSY REY LIPASE 5 [place] [address] KRISSY REY INFUSION 5 [facility] THERAPY/P INC INC ROPHYLAXI S /DX 1ST TO 1 HR THERAPEUT 01837 KR[facility] REY IC 5 [facility] INJECTION INC INC IV PUSH EACH NEW DRUG BLOOD 91288 KR[facility]SY REY COUNT 5 [facility] COMPLETE INC INC AUTO&[place] [address] KRISSY ERY INFUSION 5 [facility] THERAPY INC INC PROPHYLAX IS/DX EA HOUR THER 92915 KRISSY REY PROPH/DX 5 [facility] MEM [...] PROD AGENCY AGENCY UNDWEAR MED EA BLOOD 68005 COMBINED COMBINED COUNT 5 PHYSICIAN PHYSICIAN COMPLETE S LA S LA AUTO&AUTO DIFRNTL WBC COMPREHEN 64026 COMBINED COMBINED SIVE 5 PHYSICIAN PHYSICIAN [place] [address] COMBINED COMBINED THYROID 5 PHYSICIAN PHYSICIAN STIMULATI S LA S LA NG HORMONE TSH ADMINISTR G0008 [facility] ATION OF 5 VALLEY TIMOTHY INFLUENZA INTERNAL VIRUS MED VACCINE INFLUENZA Q2038 [facility] [facility] VACC 5 VALLEY TIMOTHY SPLIT INTERNAL VIRUS 3 MED YRS & > [place] [address] [place] ALL TRACT UPR 5 MEDICAL W/SM INT IMAGING W/MULT ASS SERIAL IMAGES NONEMERGE A0130 FEDERATED FEDERATED NCY 5 TRANSPORT TRANSPORT TRANSPORT ATION: ATION SER ATION SER WHEELCHAI R VAN RADEX 89634 KRISSY REY ESOPHAGUS 5 [facility] INC INC ECG 88762 KRISSY REY ROUTINE 5 [facility] ECG INC INC W/LEAST 12 LDS TRCG ONLY W/O I&R NONEMERGE A0130 FEDERATED FEDERATED NCY 5 TRANSPORT TRANSPORT TRANSPORT ATION: ATION SER ATION SER GERALDOI Foreign VAN ECG 41570 KRISSY GASTON JR ROUTINE 5 [facility] W/LEAST P 12 LDS I&R ONLY RENAL 05456 KRISSY REY FUNCTION 5 [facility] PANEL INC INC NONEMERGE A0130 FEDERATED FEDERATED NCY 5 TRANSPORT TRANSPORT TRANSPORT ATION: ATION SER ATION SER GERALDOI Foreign [place] BLOOD 58256 KRISSY REY COUNT 5 [facility] COMPLETE INC INC AUTO&AUTO DIFRNTL WBC SCREENING G0202 KR[facility]SY REY 5 [facility] MAMMOGRAP INC INC HY MARIA DEL ROSARIO INCL CAD WHEN PERFORMD URNLS DIP 14343 KR[facility]SY REY 5 [facility] STICK/TAB INC INC LET REAGENT AUTO MICROSCOP Y COMPREHEN 30267 KRISSY REY SIVE 5 [facility] METABOLIC INC INC PANEL DXA BONE 23585 KRISSY REY DENSITY 5 [facility] STUDY 1/> INC INC SITES AXIAL SKEL COMPUTER- 71157 KRISSY REY AIDED 5 [facility] DETECTION INC INC SCREENING MAMMOGRAP HY COLLECTIO 34783 KRISSY REY N VENOUS 5 [facility] BLOOD INC INC VENIPUNCT URE NONEMERGE A0130 FEDERATED FEDERATED NCY 5 TRANSPORT TRANSPORT TRANSPORT ATION: ATION SER ATION SER SANDRA R VAN URNLS DIP 89002 [facility]SY REY 5 [facility] STICK/TAB INC INC LET REAGENT AUTO MICROSCOP Y SUSCEPTIB 70992 KRISSY REY LTY STDY 5 [facility] ANTIMICRB INC INC IAL MICRO/AGA R DILUTJ CULTURE 72718 KR[facility]SY REY BCT 5 [facility] ISOL&PRSM INC INC PTV ID ISOLATE EA URINE CULTURE 40565 KRISSY REY BACTERIAL 5 [facility] INC INC QUANTTATI VE COLONY COUNT URINE NONEMERG A0120 FEDERATED FEDERATED TRNSPRT: 5 MINI-BUS TRANSPORT TRANSPORT MTN ATION SER ATION SER AREA/OTH SYS INCONTINE T4541 [facility] N[facility] 5 HOME HOME PRODUCT HEALTH HEALTH DISPOSABL AGENCY AGENCY E UNDPAD LARGE EA NONEMERG A0120 FEDERATED FEDERATED TRNSPRT: 5 MINI-BUS TRANSPORT TRANSPORT MTN ATION SER ATION SER AREA/OTH SYS CULTURE 85394 KRISSY REY BCT 5 [facility] ISOL&PRSM INC INC PTV ID ISOLATE EA URINE CREATININ 97001 KRISSY REY E OTHER 5 [facility] SOURCE INC INC CULTURE 85314 KRISSY REY BACTERIAL 5 [facility] INC INC QUANTTATI VE COLONY COUNT URINE COLLECTIO 32499 KRISSY REY N VENOUS 5 [facility] BLOOD INC INC VENIPUNCT URE SUSCEPTIB 43395 KRISSY REY LTY STDY 5 [facility] ANTIMICRB INC INC IAL MICRO/AGA R DILUTJ PROTEIN 96462 KRISSY REY XCPT 5 [facility] REFRACTOM INC INC ETRY SERUM PLASMA/WH L BLD URNLS DIP 93896 KR[facility]SY REY 5 [facility] STICK/TAB INC INC LET REAGENT AUTO MICROSCOP Y BLOOD 31296 KRISSY REY COUNT 5 [facility] COMPLETE INC INC AUTO&AUTO DIFRNTL WBC RENAL 11980 KRISSY REY FUNCTION 5 [facility] [place] [address] COMBINED COMBINED THYROID 5 PHYSICIAN PHYSICIAN STIMULATI [...] [place]ION [place] [address] KRISSY REY INFUSION 5 [facility] THERAPY/P INC INC ROPHYLAXI S /DX 1ST TO 1 [place] [address] KRISSY REY INFUSION 5 [facility] THERAPY INC INC PROPHYLAX IS/DX EA HOUR BLOOD 09721 KR[facility]SY REY COUNT 5 [facility] COMPLETE INC INC AUTO&AUTO DIFRNTL WBC COMPREHEN 66587 KR[facility]SY REY SIVE 5 [facility] METABOLIC INC INC PANEL ECG 82997 KRISSY REY ROUTINE 5 [facility] ECG INC INC W/LEAST 12 LDS TRCG ONLY W/O I&R AMB A0427 [facility] SERVICE [address] [place] [address] ALS AMBULANCE AMBULANCE EMERGENCY SE SE TRANSPORT LEVEL 1 GROUND A0425 ANDRE[facility] BALDERAS MILEAGE [address] [place] [address] PER AMBULANCE AMBULANCE STATUTE SE SE MILE ECG 91258 KRISSY CORBIN ROUTINE [facility] W/LEAST P 12 LDS I&R ONLY LANCETS A4259 [place] PER BOX 5 STATES STATES OF 100 MEDICAL MEDICAL SUPPLY SUPPLY BLD GLU A4253 [place] TEST/REAG 5 STATES STATES T STRIPS MEDICAL MEDICAL HOME BLD SUPPLY SUPPLY GLU MON-50 DISPBL T4535 [facility]/KATHIE 5 HOME HOME ELD/GUARD HEALTH HEALTH /PAD/UNDG AGENCY AGENCY RMNT INCONT EA BLOOD 34903 COMBINED COMBINED COUNT 5 PHYSICIAN PHYSICIAN COMPLETE S LA S LA AUTO&AUTO DIFRNTL WBC COMPREHEN 46624 COMBINED COMBINED SIVE 5 PHYSICIAN PHYSICIAN [place] [address] COMBINED COMBINED THYROID 5 PHYSICIAN PHYSICIAN STIMULATI S LA S LA NG HORMONE TSH SEDIMENTA 15040 COMBINED COMBINED TION RATE 5 PHYSICIAN PHYSICIAN RBC S LA S LA NON-AUTOM ATED NONEMERGE A0130 FEDERATED FEDERATED NCY 5 TRANSPORT TRANSPORT TRANSPORT ATION: ATION SER ATION SER SANDRA AKBAR OTHER K0108 HOVEROUND HOVEROUND ACCESSORI 5 ES CORPORATI CORPORATI ON ON PWR E2365 HOVEROUND HOVEROUND WHLCHAIR 5 ACSS U-1 CORPORATI CORPORATI SEALED ON ON LEAD ACID BATTRY EA NONEMERGE A0130 FEDERATED FEDERATED NCY 5 TRANSPORT TRANSPORT TRANSPORT ATION: ATION SER ATION SER SANDRA Carrasquillo VAN RENAL 66332 KR[facility]SY REY FUNCTION 5 [facility] PANEL INC INC HEPATIC 92139 [facility] FUNCTION 5 [facility] PANEL INC INC BLOOD 29367 [facility] COUNT [facility] COMPLETE INC INC AUTO&AUTO DIFRNTL WBC COLLECTIO 31502 [facility] N VENOUS 5 [facility] BLOOD INC INC VENIPUNCT URE DNA 85073 [facility] ANTIBODY 5 [facility] RUBY/DO INC INC UBLE STRANDED SPRING-PO A4258 [facility] [place] WERED 5 [facility] STATES DEVICE MEDICAL MEDICAL FOR SUPPLY SUPPLY LANCET EACH NORMAL A4256 [facility] LOW AND 5 [facility] HIGH MEDICAL MEDICAL CALIBRATO SUPPLY SUPPLY R SOLUTION/ CHIPS LANCETS A4259 [facility] [place] PER BOX 5 STATES STATES OF [facility] MEDICAL MEDICAL SUPPLY SUPPLY BLD GLU A4253 [facility] TEST/REAG 5 [facility] T STRIPS MEDICAL MEDICAL HOME BLD SUPPLY SUPPLY GLU MON-50 NONEMERGE A0130 FEDERATED FEDERATED NCY 5 TRANSPORT TRANSPORT TRANSPORT ATION: ATION SER ATION SER ARTHURSAMIRAGarrett Carrasquillo VAN INCONTINE T4541 [facility] NCE 5 HOME HOME PRODUCT HEALTH HEALTH DISPOSABL AGENCY AGENCY E UNDPAD LARGE EA NONEMERGE A0130 [facility] FEDERATED NCY 5 TRANSPORT TRANSPORT TRANSPORT ATION: ATION SER ATION SER SANDRA AKBAR NONEMERGE A0130 [facility]ER[facility] NCY 4 TRANSPORT TRANSPORT TRANSPORT ATION: ATION SER ATION SER SANDRA Carrasquillo VAN DISPBL T4535 [facility] LINER/KATHIE 4 HOME HOME ELD/GUARD HEALTH HEALTH /PAD/UNDG AGENCY AGENCY RMNT INCONT EA ADLT SZD T4526 [facility] DISPBL 4 HOME HOME INCONT HEALTH HEALTH PROD AGENCY AGENCY UNDWEAR MED EA NONEMERGE A0130 FEDERATED FEDERATED NCY 4 TRANSPORT TRANSPORT TRANSPORT ATION: ATION SER ATION SER WHEELSAMIRAI R VAN DEBRIDEME 39525 LAUSE FED LAUSE FED NT NAIL 4 ANY METHOD 6/> NASL A7034 [place] [facility] INTRFCE 4 HOME HOME POS [facility] PRSS EQUIPME EQUIPME DE[place] W/[place] [address] COMBINED COMBINED THYROID 4 PHYSICIAN PHYSICIAN STIMULATI S LA S LA NG HORMONE TSH BLOOD 39301 COMBINED COMBINED COUNT 4 PHYSICIAN PHYSICIAN COMPLETE S LA S LA AUTO&AUTO DIFRNTL WBC COMPREHEN 64932 COMBINED COMBINED SIVE 4 PHYSICIAN PHYSICIAN METABOLIC S LA S LA PANEL NONEMERG A0120 FEDERATED FEDERATED TRNSPRT: 4 TRANS MINI-BUS TRANSPORT SERVBLUEG MTN ATION SER NATA AREA/OTH SYS ADLT SZD T4526 [facility] DISPBL 4 HOME HOME INCONT HEALTH HEALTH PROD AGENCY AGENCY UNDWEAR MED EA BLOOD 19533 [facility] RYE COUNT 4 [facility] COMPLETE INC INC AUTO&AUTO DIFRNTL WBC URNLS DIP 93393 [facility] REY [facility] STICK/TAB INC INC LET REAGENT AUTO MICROSCOP Y PROTEIN 61773 [facility] XCPT 4 [facility] REFRACTOM INC INC ETRY SERUM PLASMA/WH L BLD SUSCEPTIB 60135 [facility] LTY STDY 4 [facility] ANTIMICRB INC INC IAL MICRO/AGA R DILUTJ CULTURE 21440 [facility] BCT [facility] ISOL&PRSM INC INC PTV ID ISOLATE EA URINE COMPREHEN 92717 [facility] SIVE 4 [facility] METABOLIC INC INC PANEL COLLECTIO 12273 [facility] N VENOUS 4 [facility] BLOOD INC INC VENIPUNCT URE CULTURE 24158 [facility] BACTERIAL 4 [facility] INC INC QUANTTATI VE COLONY COUNT URINE 25 39370 [facility] HYDROXY 4 [facility] INCLUDES INC INC FRACTIONS IF PERFORMED CREATININ 22292 [facility] Bolivar OTHER 4 [facility] [place] [address] [facility] RE[facility] PARATHORM 4 [facility] ONE INC INC NONEMERG A0120 FEDERATED FEDERATED TRNSPRT: 4 TRANS MINI-BUS TRANSPORT SERVBLUEG MTN ATION SER NATA AREA/OTH SYS RADEX 82647 KRISSY REY UPPER GI 4 [facility] W/WO INC INC GLUCAGON/ DELAY IMAGES W/KUB NONEMERG A0120 FEDERATED FEDERATED TRNSPRT: 4 TRANS MINI-BUS TRANSPORT SERVBLUEG MTN ATION SER NATA AREA/OTH SYS DETERMINA 27060 FARIDA WALKER [facility] TION [address] [facility]PH 135[facility] 4 VISION XM&EVAL CENTER COMPRHNSV ESTAB PT 1/> DISPBL T4535 [facility]/KATHIE 4 HOME HOME ELD/[facility] HEALTH /PAD/UNDG AGENCY AGENCY RMNT INCONT EA [...] TRANSPORT SERVBLUEG ATION: ATION SER NATA AKBAR RENAL 20264 KRISSY REY FUNCTION 4 [facility] PANEL INC INC PROTEIN 35513 KRISSY REY XCPT 4 [facility] REFRACTOM INC INC ETRY SERUM PLASMA/WH L BLD URNLS DIP 91806 KRISSY REY 4 [facility] STICK/TAB INC INC LET REAGENT AUTO MICROSCOP Y BLOOD 36328 KRISSY REY COUNT 4 [facility] COMPLETE INC INC AUTO&AUTO DIFRNTL WBC CREATININ 36005 KRISSY REY E OTHER 4 [facility] SOURCE INC INC COLLECTIO 40938 KRISSY Cook VENOUS 4 [facility] BLOOD INC INC VENIPUNCT URE NONEMERGE A0130 FEDERATED FEDERATED NCY 4 TRANS [...] EQUIPME EQUIPME REPLACEME NT ONLY EACH URINALYSI 47764 [employer], [employer], S 4 HANGERSMITH HANGERSMITH QUAL/SEMI ANDREY BALDERAS QUANT CO HOS CO HOS EXCEPT IMMUNOASS AYS RENAL 04885 [employer], [employer], FUNCTION 4 HANGERSMITH HANGERSMITH PANEL ANDREY RIVEROOLAS CO HOS CO HOS PROTEIN 52492 [employer], [employer], TOTAL 4 HANGERSMITH HANGERSMITH XCPT ANDREY ANDREY REFRACTOM CO HOS CO HOS ETRY URINE BLOOD 56073 [employer], [employer], COUNT 4 HANGERSMITH HANGERSMITH COMPLETE ANDREYAlmaz BALDERAS AUTO&AUTO CO HOS CO HOS DIFRNTL WBC CULTURE 96710 [employer], [employer], BCT 4 HANGERSMITH HANGERSMITH ISOL&PRSM ANDREY ANDREY PTV ID CO HOS CO HOS ISOLATE EA URINE COMPLEMEN 52820 [employer], [employer], T ANTIGEN 4 HANGERSMITH HANGERSMITH EACH ANDREYAlmaz BALDERAS COMPONENT CO HOS CO HOS CULTURE 92589 [employer], [employer], BACTERIAL 4 HANGERSMITH HANGERSMITH ANDREY RIVEROOLAS QUANTTATI CO HOS CO HOS VE COLONY COUNT URINE CREATININ 15632 [employer], [employer], E OTHER 4 HANGERSMITH HANGERSMITH SOURCE ANDREY HANSENS CO HOS CO HOS 25 42467 [employer], [employer], HYDROXY 4 HANGERSMITH HANGERSMITH INCLUDES ANDREY HANSENS FRACTIONS CO HOS CO HOS IF PERFORMED SUSCEPTBI 09613 [employer], [employer], LTY STDY 4 HANGERSMITH HANGERSMITH ANTIMICRB ANDREY BALDERAS IAL AGNT CO HOS CO HOS AGAR DILUTJ DNA 24308 [employer], [employer], ANTIBODY 4 HANGERSMITH HANGERSMITH RUBY/DO ANDREYAlmaz ABLDERAS UBLE CO HOS CO HOS STRANDED URNLS DIP 04172 [employer], [employer], 4 HANGERSMITH HANGERSMITH STICK/TAB ANDREY BALDERAS LET RGNT CO HOS CO HOS AUTO W/O MICROSCOP Y NONEMERG A0120 FEDERATED FEDERATED TRNSPRT: 4 MINI-BUS TRANSPORT TRANSPORT MTN ATION SER ATION SER AREA/OTH SYS ADLT SZD T4526 [facility] DISPBL 4 HOME HOME INCONT HEALTH HEALTH PROD AGENCY AGENCY UNDWEAR MED EA CONTINUOU E0601 RICHARDSON Muse 4 HOME HOME POSITIVE MEDICAL MEDICAL AIRWAY EQUIPME EQUIPME PRESSURE DEVICE NONEMERG A0120 FEDERATED FEDERATED TRNSPRT: 4 MINI-BUS TRANSPORT TRANSPORT MTN [facility] CONTINUOU E0601 RICHARDSON Muse 4 HOME HOME POSITIVE MEDICAL MEDICAL AIRWAY EQUIPME EQUIPME PRESSURE DEVICE NONEMERG A0120 FEDERATED FEDERATED TRNSPRT: 4 MINI-BUS TRANSPORT TRANSPORT MTN ATERNESTINA HART [facility]/OT SYS INCONTINE T4541 [facility] NCE 4 HOME HOME PRODUCT HEALTH HEALTH DISPOSABL AGENCY AGENCY E UNDPAD LARGE EA DISPBL T4535 [facility] LINER/KATHIE 4 HOME HOME ELD/[facility] HEALTH /PAD/UNDG AGENCY AGENCY RMNT INCONT EA ADLT SZD T4526 [facility] DISPBL 4 HOME HOME INCONT HEALTH HEALTH PROD AGENCY AGENCY UNDWEAR MED EA PWR WC K0823 HOVEROUND HOVEROUND GRP 2 STD 3 CAPTAINS CORPORATI CORPORATI CHAIR PT ON ON TO &=300 LBS NONEMERG A0120 FEDERATED FEDERATED TRNSPRT: 3 MINI-BUS TRANSPORT TRANSPORT MTN [facility] ECHO 49600 [facility] R-T 3 Y Y 2D [facility] W/WOM-MOD E COMPL SPEC&COLR D CONTINUOU E0601 RICHARDSON Muse 3 HOME HOME POSITIVE MEDICAL MEDICAL AIRWAY EQUIPME EQUIPME PRESSURE DEVICE NONEMERG A0120 FEDERATED FEDERATED TRNSPRT: 3 MINI-BUS TRANSPORT TRANSPORT MTN ATION SER ATION SER [facility]/OT SYS EXTERNAL 86038 [employer], [employer], ECG 3 HANGERSMITH HANGERSMITH SCANNING ANDREY BALDERAS ANALYSIS CO HOS CO HOS REPORT XTRNL ECG 45882 [employer], [employer], & 48 HR 3 HANGERSMITH HANGERSMITH RECORDING ANDREY ANDREY CO HOS CO HOS NONEMERG A0120 FEDERATED FEDERATED TRNSPRT: 3 MINI-BUS TRANSPORT TRANSPORT MTN ATION SER ATION SER AREA/OTH SYS COMPREHEN 41723 [employer], [employer], SIVE 3 HANGERSMITH HANGERSMITH METABOLIC ANDREY ANDREY PANEL CO HOS CO HOS URNLS DIP 25632 [employer], [employer], 3 HANGERSMITH HANGERSMITH STICK/TAB ANDREY ANDREY LET RGNT CO HOS CO HOS AUTO W/O MICROSCOP Y DNA 88367 [employer], [employer], ANTIBODY 3 HANGERSMITH HANGERSMITH RUBY/DO ANDREY ANDREY UBLE CO HOS CO HOS STRANDED 25 89340 [employer], [employer], HYDROXY 3 HANGERSMITH HANGERSMITH INCLUDES ANDREY ANDREY FRACTIONS CO HOS CO HOS IF PERFORMED CREATININ 97776 [employer], [employer], E OTHER 3 HANGERSMITH HANGERSMITH SOURCE [place] [address] [employer], [employer], PHOSPHORU 3 HANGERSMITH HANGERSMITH S ANDREY ANDRE[place] [address] [employer], [employer], PARATHORM 3 HANGERSMITH HANGERSMITH ONE ANDREY ANDREY CO HOS CO HOS COMPLEMEN 22819 [employer], [employer], T ANTIGEN 3 HANGERSMITH HANGERSMITH EACH ANDREY ANDREY COMPONENT CO HOS CO HOS COMPLEMEN 80725 [employer], [employer], T TOTAL 3 HANGERSMITH HANGERSMITH HEMOLYTIC ANDREY ANDREY CO HOS CO HOS BLOOD 61090 [employer], [employer], COUNT 3 HANGERSMITH HANGERSMITH COMPLETE ANDREY ANDREY AUTO&AUTO CO HOS CO HOS DIFRNTL WBC URINALYSI 16499 [employer], [employer], S 3 HANGERSMITH HANGERSMITH QUAL/SEMI ANDREY ANDREY QUANT CO HOS CO HOS EXCEPT IMMUNOASS AYS PROTEIN 36671 [employer], [employer], TOTAL 3 HANGERSMITH HANGERSMITH XCPT ANDREY ANDREY REFRACTOM CO HOS CO HOS ETRY URINE NASL A7034 RICHARDSON BAI INTRFCE 3 HOME HOME POS [facility] PRSS EQUIPME EQUIPME DEVC W/WO HEAD [...] MEDICAL MEDICAL AIRWAY EQUIP[place] [address] [place], THYROID 3 HANGERSMITH HANGERSMITH STIMULATI ANDREY BALDERAS NG CO HOS CO HOS HORMONE TSH COMPREHEN 60698 [facility], [employer], SIVE 3 HANGERSMITH HANGERSMITH METABOLIC ANDREY BALDERAS PANEL CO HOS CO HOS SEDIMENTA 44044 [employer], [employer], TION RATE 3 HANGERSMITH HANGERSMITH RBC ANDREY BALDERAS NON-AUTOM CO HOS CO HOS ATED LIPID 64338 [employer], [employer], PANEL 3 HANGERSMITH HANGERSMITH ANDREY ANDREY CO HOS CO HOS PWR [...] MEDICAL AIRWAY EQUIPME EQUIPME PRESSURE DEVICE DEBRIDEME 73143 LAUSE FED LAUSE FED NT NAIL 3 ANY METHOD 6/> US BREAST 22891 [facility] INC, [employer], REAL 3 HANGERSMITH HANGERSMITH TIME ANDREY BALDERAS W/IMAGE CO HOS CO HOS DOCUMENTA TION PWR K0823 HOVEROUND HOVEROUND GRP 2 STD 3 CAPTAINS CORPORATI CORPORATI CHAIR PT ON ON TO &=300 LBS HOS BED E0260 RICHARDSON BAI SEMI-ELEC 3 HOME HOME W/ANY MEDICAL MEDICAL TYPE SIDE EQUIPME EQUIPME RAIL W/MATTRSS NASL A7034 RICHARDSON BAI INTRFCE 3 HOME HOME POS [facility] PRSS EQUIPME EQUIPME DEVC W/WO HEAD STRAP CONTINUOU E0601 RICHARDSON BAI S 3 HOME HOME POSITIVE MEDICAL MEDICAL AIRWAY EQUIPME EQUIPME PRESSURE DEVICE MAMMOGRAP 41948 [facility] HY 3 EIDER DEE UNILATERA RADIOLOGY L ASSOCIAT US BREAST 03285 [facility] REAL 3 EIDER DEE TIME RADIOLOGY W/IMAGE ASSOCIAT DOCUMENTA TION PROTEIN 69604 [facility] INC, [employer], TOTAL 3 HANGERSMITH HANGERSMITH XCPT ANDREY BALDERAS REFRACTOM CO HOS CO HOS ETRY URINE RENAL 88125 [facility], [employer], FUNCTION 3 HANGERSMITH HANGERSMITH PANEL ANDREY BALDERAS CO HOS CO HOS BLOOD 97076 [facility], [facility], COUNT 3 HANGERSMITH HANGERSMITH COMPLETE ANDREY BALDERAS AUTO&AUTO CO HOS CO HOS DIFRNTL WBC CREATININ 51829 [facility], [facility], E OTHER 3 HANGERSMITH HANGERSMITH SOURCE ANDREY HANSENS CO HOS CO HOS 25 47100 [employer], [employer], HYDROXY 3 HANGERSMITH HANGERSMITH INCLUDES ANDREY ANDREY FRACTIONS CO HOS CO HOS IF PERFORMED HOS BED E0260 RICHARDSON BAI SEMI-ELEC 3 [...] AGENCY AGENCY E UNDPAD LARGE EA BLOOD 70672 COMBINED COMBINED COUNT 3 PHYSICIAN PHYSICIAN COMPLETE S LA S LA AUTO&AUTO DIFRNTL WBC LIPID 28424 COMBINED COMBINED PANEL 3 [place] [address] COMBINED COMBINED THYROID 3 PHYSICIAN PHYSICIAN STIMULATI S LA S LA NG HORMONE TSH SEDIMENTA 97263 COMBINED COMBINED TION RATE 3 PHYSICIAN PHYSICIAN RBC S LA S LA NON-AUTOM ATED COLLECTIO 07564 [facility] N VENOUS 3 [facility] BLOOD INTERNAL VENIPUNCT MED URE HOS BED E0260 RICHARDSON BAI SEMI-ELEC 3 HOME HOME W/ANY MEDICAL MEDICAL TYPE SIDE EQUIPME EQUIPME RAIL W/MATTRSS PWR K0823 HOVEROUND HOVEROUND GRP 2 STD 3 CAPTAINS CORPORATI CORPORATI CHAIR PT ON ON TO &=300 LBS POLYSOM 88506 CRISTIAN CORNEJO CORNEJO CRISTIAN 6/>YRS 3 SLEEP CONSULTIN W/CPAP G SRV 4/> ADDL IKER ATTND PROTEIN 54658 [employer], [employer], TOTAL 3 HANGERSMITH HANGERSMITH XCPT ANDREY HANSENS REFRACTOM CO HOS CO HOS ETRY URINE BASIC 76117 [facility], [facility], METABOLIC 3 HANGERSMITH HANGERSMITH PANEL ANDREY ANDREY CALCIUM CO HOS CO HOS TOTAL URINALYSI 61486 [facility], [facility], S 3 HANGERSMITH HANGERSMITH QUAL/SEMI ANDREY ANDREY QUANT CO HOS CO HOS EXCEPT IMMUNOASS AYS URNLS DIP 53392 [facility], [facility], 3 HANGERSMITH HANGERSMITH STICK/TAB ANDREY ANDREY LET RGNT CO HOS CO HOS AUTO W/O MICROSCOP Y CREATININ 35847 [facility], [facility], E OTHER 3 HANGERSMITH HANGERSMITH SOURCE ANDREY ANDREY CO HOS CO HOS CONTINUOU E0601 RICHAR[facility]ON BAI S 3 HOME HOME POSITIVE MEDICAL MEDICAL AIRWAY EQUIPME EQUIPME PRESSURE DEVICE POLYSOM 83728 CHRISTOPHER WHITE 6/>YRS 3 [facility] W/CPAP 4/> ADDL IKER ATTND BASIC 20502 [facility], [facility], METABOLIC 3 HANGERSMITH HANGERSMITH PANEL ANDREY ANDREY CALCIUM CO HOS CO HOS TOTAL INJECTION J[address] [facility] H[facility] INTRAVENO US INFUS 10 MG CLOSURE C1760 [facility] DEVICE [address] [place] [address] VASCULAR INTRDUCR/ C1894 [facility] SHEATH [address] [place] [address] NOT GUID INTRACARD EP NON-LASR CATH PLMT 81429 [facility] L HRT & [address] [place] [address] ARTS W/NJX & ANGIO IMG S&I INJECTION J3010 [facility] FENTANYL [address] [place] [address] CITRATE 0.1 MG RADIOLOGI 10832 [facility] [place] [facility]AL[facility] IRIS C EXAM 3 RADIOLOGY CHEST 2 VIEWS FRONTAL&L ATERAL BLOOD 68129 [facility]ITAL[facility]VI JAINON COUNT 3 [facility] AUTOMATED BASIC 96486 [facility] METABOLIC [address] [place] [address] CALCIUM TOTAL COLLECTIO 02949 CHRISTOPHER WHITE N VENOUS [address] [facility] VENIPUNCT URE HOS BED E0260 R[facility] BAI SEMI-ELEC 3 HOME HOME W/ANY MEDICAL MEDICAL TYPE SIDE EQUIPME EQUIPME RAIL W/MATTRSS PWR K0823 HOVEROUND HOVEROUND GRP 2 STD 3 CAPTAINS CORPORATI CORPORATI CHAIR PT ON ON TO &=300 LBS HUMDIFIR E0562 [facility] BAI HEATED 3 HOME HOME USED MEDICAL MEDICAL W/POS EQUIPME EQUIPME ARWAY PRESSURE DEVICE FILTER A7038 [facility] BAI DISPBL 3 HOME HOME USED MEDICAL MEDICAL W/POS EQUIPME EQUIPME ARWAY PRESSURE DEVICE FILTER A7039 [facility] BAI NON 3 HOME HOME DISPBL MEDICAL MEDICAL USED EQUIPME EQUIPME W/POS ARWAY PRESS DEVICE FULL FACE A7030 R[facility] BAI MASK 3 HOME HOME USED MEDICAL MEDICAL W/POS EQUIPME EQUIPME ARWAY PRESS DEVICE EA CONTINUOU E0601 R[facility] BAI S 3 HOME HOME POSITIVE MEDICAL MEDICAL AIRWAY EQUIPME EQUIPME PRESSURE DEVICE HEADGEAR A7035 R[facility] BAI USED 3 HOME HOME W/POSITIV MEDICAL MEDICAL E AIRWAY EQUIPME EQUIPME PRESSURE DEVICE TUBING A7037 R[facility] BAI USED WITH 3 HOME HOME POSITIVE MEDICAL MEDICAL AIRWAY EQUIPME EQUIPME PRESSURE DEVICE PULMONARY 70548 CHRISTOPHER JAINON 3 [facility]PITAL IMAGING PARTICULA TE TECHNETIU A9540 CHRISTOPHER WHITE M TC-99M 3 [facility] STDY DOSE UP TO 10 MCI TECHNETIU A9539 CHRISTOPHER WHITE M TC-99M 3 [facility] DX UP TO 25 MCI ECG 51231 CRISTIAN CORNEJO CORNEJO CRISTIAN ROUTINE 3 ECG CONSULTIN W/LEAST G SRV 12 LDS W/I&R POLYSOM 79598 CRISTIAN CORNEJO CORNEJO CRISTIAN 6/>YRS 3 SLEEP 4/> CONSULTIN ADDL G SRV IKER ATTND POLYSOM 45851 CHRISTOPHER JAINON 6/>YRS 3 [facility] SLEEP 4/> HOSPITAL HOSPITAL ADDL IKER ATTND ECHO 88609 CRISTIAN CORNEJO CORNEJO CRISTIAN TTHRC R-T 3 2D CONSULTIN W/WOM-MOD G SRV E COMPL SPEC&COLR D DUP-SCAN 71220 CRISTIAN CORNEJO CORNEJO CRISTIAN XTR VEINS 3 COMPLETE CONSULTIN G SRV BILATERAL STUDY CV STRS 58454 [facility] TST 3 PHYSICIAN XERS&/OR S GROUP RX CONT ECG W/O I&R TECHNETIU A9500 KRISSY KRISSY Robertson TC-99M 3 [facility] SESTAMIBI INC INC DX PER STUDY DOSE CV STRS 86415 KRISSYELVI CORBIN TST 3 [facility] XERS&/OR HOSPITAL RX CONT P ECG I&R ONLY MYOCARDIA 87711 EILEEN Bran SPECT 3 MEDICAL ANTWAN SINGLE IMAGING STUDY AT ASS REST OR STRESS INJECTION J2785 KRISSY REY 3 [facility] REGADENOS INC INC ON 0.1 MG CV STRS 61947 KRISSY REY TST 3 [facility] XERS&/OR INC INC RX CONT ECG TRCG ONLY MYOCARDIA 60746 KRISSY KRISSY Shant SPECT 3 [facility] MULTIPLE INC INC STUDIES LIPID 24672 SUSYON SUSYON PANEL 3 [facility] BLOOD 34011 JULIO CESARBETZAIDA HARRELLJAVONON COUNT 3 [facility] [address] [facility] TROPONIN 3 [facility] KETAN PWR WC K0823 HOVEROUND HOVEROUND GRP 2 STD 3 CAPTAINS CORPORATI CORPORATI CHAIR PT ON ON TO &=300 LBS BASIC 34916 SUSYON JULIO CESARJAVONON METABOLIC 3 [facility] CALCIUM TOTAL ECG 87535 SUSYELVI SUSYON ROUTINE 3 [facility] W/LEAST 12 LDS TRCG ONLY W/O I&R HOS BED E0260 RICHARDSON BAI SEMI-ELEC 3 HOME HOME W/ANY MEDICAL MEDICAL TYPE SIDE EQUIPME EQUIPME RAIL W/MATTRSS COLLECTIO 19030 JULIO CESARBETZAIDA WHITE N VENOUS [address] [facility] VENIPUNCT URE OBSERVATI 77892 NAVID MATOS ON CARE 3 EMERGENCY KAMILA DISCHARGE SERVICES MANAGEMEN T ECG 06639 NAV[facility] MATOS ROUTINE 3 EMERGENCY KAMILA ECG SERVICES W/LEAST 12 LDS I&R ONLY INJECTION J[address] [facility] SODIUM 500 MG INJECTION J2250 [address] [facility] HCL PER 1 MG NONINVASI 43633 [facility] VE [address] [place] [address] E[facility] HOSPITAL OXIMETRY SINGLE DETER INJECTION J2405 [address] ONDANSETR [facility] ON HCL PER 1 MG INJECTION J3010 [facility] FENTANYL [address] [place] [address] CITRATE [facility] 0.1 MG INJECTION J1885 [address] [facility] TROMETHAM INE PER 15 MG INJECTION J2710 [address] NEOSTIGMI [facility]OSP[facility] NE METHYLSUL FATE UP TO 0.5 MG COLLECTIO 87593 [facility] N VENOUS [address] [place] [address] BLOOD [facility]OSPITAL VENIPUNCT URE CREATINE 25681 [facility] KINASE MB 3 [facility]PITAL ONLY HOSPITAL G0378 [facility] OBSERVATI [address] [place] [address] [place] [address] [facility] FREE [address] [place] [address] HOSPITAL ANOSCOPY 31306 CELIA YANG JR DX 3 SAMIRA SAMIRA W/COLLJ SPEC BR/[place] [address] [facility] THYROID [address] [place] [address] [facility] NG HORMONE TSH ECG 43763 [facility] ROUTINE 3 [facility] ECG HOSPITAL HOSPITAL W/LEAST 12 LDS TRCG ONLY W/O I&R HEMORRHOI 81821 [facility] DECTOMY [address] [place] [address] INTERNAL [facility]PITAL RUBBER BAND LIGATIONS INJECTION J[address] DEXAMETHO [facility] HOSPITAL SONE SODIUM PHOSPHATE 1 MG INJECTION J[address] [facility] HCL INTRAVENO US INFUS 10 MG ANESTHESI 24930 EILEEN Cruz 3 ANESTHESI CAM [place] [address] CHRISTOPHER WHITE TROPONIN 3 [facility] KETAN INITIAL 49490 NAVID HERNANDEZ OBSERVATI 3 EMERGENCY PEDRITO IGN ON SERVICES CARE/DAY 70 MINUTES ECG 55623 CRISTIAN CORNEJO CORNEJO CRISTIAN ROUTINE 3 MD ECG CONSULTIN W/LEAST G SRV 12 LDS I&R ONLY BLOOD 14779 [place] [facility]IO [facility]ON COUNT [address] [place] [address] N BASIC 76242 JULIO [facility]ITALELVI WHITE METABOLIC [address] [place] [address] CALCIUM TOTAL ECG 37365 [place] [facility] ROUTINE [address] [place] [address] W/LEAST 12 LDS TRCG ONLY W/O I&R BLOOD 05924 [facility] COUNT [address] [place] [address] T COLLECTIO 40520 CHRISTOPHER WHITE N VENOUS [address] [facility] VENIPUNCT URE DISPBL T4535 [facility] LINER/KATHIE 3 HOME [...] MEDICAL MEDICAL TYPE SIDE EQUIPME EQUIPME RAIL W/[facility] [address] DAY INTERNAL MANAGEMEN MED T 30 MIN/< SBSQ [address] CARE/DAY INTERNAL 25 MED MINUTES SBSQ [address] CARE/DAY INTERNAL 25 MED MINUTES INITIAL [address] CARE/DAY INTERNAL 50 MED MINUTES RADIOLOGI 92480 [facility] LILIBETH CHEST 2 RADIOLOGY VIEWS ASSOCIAT FRONTAL&L ATERAL MAMMOGRAP 47666 [facility], [facility], HY 3 HANGERSMITH HANGERSMITH UNILATERA ANDREY HANSENS L CO HOS CO HOS US BREAST 00440 [facility], [facility], REAL 3 HANGERSMITH HANGERSMITH TIME ANDREY ANDREY W/IMAGE CO HOS CO HOS DOCUMENTA TION MAMMOGRAP 74936 [facility], [facility], HY 3 HANGERSMITH HANGERSMITH BILATERAL ANDREY ANDREY CO HOS CO HOS PWR WC K0823 HOVEROUND HOVEROUND GRP 2 STD 3 CAPTAINS CORPORATI CORPORATI CHAIR PT ON ON TO &=300 LBS HOS BED E0260 RICHARDSON BAI SEMI-ELEC 3 HOME HOME W/ANY MEDICAL MEDICAL TYPE SIDE EQUIPME EQUIPME RAIL W/MATTRSS CULTURE 85708 [facility], [facility], BCT 3 HANGERSMITH HANGERSMITH ISOL&PRSM ANDREY BALDERAS PTV ID CO HOS CO HOS ISOLATE EA URINE CULTURE 00104 [facility], [facility] [place] [facility], BACTERIAL 3 HANGERSMITH HANGERSMITH ANDREY HANSENS QUANTTATI CO HOS CO HOS VE COLONY COUNT URINE 25 41532 [facility] [place] [facility], [place] [facility] [place] [facility], HYDROXY 3 HANGERSMITH HANGERSMITH INCLUDES ANDREY ANDREY FRACTIONS CO HOS CO HOS IF PERFORMED SUSCEPTBI 36038 [facility] [place] [facility], [facility] [place] [facility], LTY STDY 3 HANGERSMITH HANGERSMITH ANTIMICRB ANDREY BALDERAS IAL AGNT CO HOS CO HOS AGAR DILUTJ CREATININ 42822 [facility] [place] [facility], [place] [facility] [place] [facility] E OTHER 3 HANGERSMITH HANGERSMITH SOURCE [place]RE[place] [address] [place] [facility] [place] [facility], [place] [facility] [place] [facility], PARATHORM 3 HANGERSMITH HANGERSMITH ONE ANDREY ANDREY CO HOS CO HOS URNLS DIP 18941 [facility], [place] [facility] [place] [facility], 3 HANGERSMITH HANGERSMITH STICK/TAB ANDREY HANSENS LET CO HOS CO HOS REAGENT AUTO MICROSCOP Y RENAL 24430 [place] [facility] [place] [employer], [place] [facility] [place] [facility], FUNCTION 3 HANGERSMITH HANGERSMITH PANEL ANDREY ANDREY CO HOS CO HOS BLOOD 68253 [facility], [employer], COUNT 3 HANGERSMITH HANGERSMITH COMPLETE ANDREY RIVEROOLAS AUTO&AUTO CO HOS CO HOS DIFRNTL WBC PROTEIN 35661 [employer], [employer], TOTAL 3 HANGERSMITH HANGERSMITH XCPT ANDREY BALDERAS REFRACTOM CO HOS CO HOS ETRY URINE RADEX 51942 [facility]ARSHADJIM[facility] ESOPHAGUS 3 [facility] ASS[facility] SCREENING 63757 LABELLE [facility] 3 LILIBETH MAMMOGRAP RADIOLOGY HY ASSOCIAT BILATERAL ADLT SZD T4526 [facility] 3 HOME HOME INCONT HEALTH HEALTH PROD AGENCY AGENCY UNDWEAR MED EA DISPBL T4535 [facility] LINER/KATHIE 3 HOME HOME ELD/GUARD HEALTH HEALTH /PAD/UNDG AGENCY AGENCY RMNT INCONT EA MRI 73472 [facility] 3 Y Y [facility] LUMBAR W/O CONTRAST MATERIAL PWR WC K0823 [facility] HOVEROUND GRP 2 STD 3 CAPTAINS CORPORATI CORPORATI CHAIR PT ON ON TO &=300 LBS HOS BED E0260 [facility] SEMI-ELEC 3 HOME HOME W/ANY MEDICAL MEDICAL TYPE SIDE EQUIPME EQUIPME RAIL W/MATTRSS ANES 39963 [facility] 3 ANESTH INTESTINE OF [place] [address] KRISSY KRISSY INFUSION 3 [facility] THERAPY INC INC PROPHYLAX IS/DX EA HOUR COLOREC G0105 ALLTOYIN YANG JR CANCR 3 SAMIRA SAMIRA SCR; COLONSCPY [place] @[place] [address] KRISSY KRISSY INFUSION 3 [facility] THERAPY/P INC INC ROPHYLAXI S /DX 1ST TO 1 HR NJX 80693 [facility] DX/THER 3 Y Y AGT PVRT [facility] FACET JT LMBR/SAC 1 LEVEL LOCM Q9967 [facility] 300-399 3 Y Y MG/ML [facility] IODINE CONCENTRA TION PER ML INJECTION J3301 [facility] [facility] 3 Y Y [facility] LONE ACETONIDE NOS 10 MG ADLT SZD T4526 [facility] DISP[facility] 2 HOME HOME INCONT HEALTH HEALTH PROD AGENCY AGENCY UNDWEAR MED EA DISPBL T4535 [facility] LINER/KATHIE 2 HOME HOME ELD/GUARD HEALTH HEALTH /PAD/UNDG AGENCY AGENCY RMNT INCONT EA PWR WC K0823 [facility] HOVEROUND GRP 2 STD 2 CAPTAINS CORPORATI CORPORATI CHAIR PT ON ON TO &=300 LBS HOS BED E0260 [facility] RICH[facility]ON SEMI-ELEC 2 HOME HOME W/ANY MEDICAL MEDICAL TYPE SIDE EQUIPME EQUIPME RAIL W/MATTRSS PWR E2365 [facility]OVER[facility] HOVEROUND WHLCHAIR 2 ACSS U-1 CORPORATI CORPORATI SEALED ON ON LEAD ACID BATTRY EA THERAPEUT 04508 [employer], [employer], IC PX 1/> 2 HANGERSMITH HANGERSMITH AREAS ANDREY ANDREY EACH 15 CO HOS CO HOS MIN EXERCISES THERAPEUT 54936 [employer], [employer], IC PX 1/> 2 HANGERSMITH HANGERSMITH AREAS ANDREY ANDREY EACH 15 CO HOS CO HOS MIN EXERCISES INCONTINE T4541 [facility] NCE 2 HOME HOME PRODUCT HEALTH HEALTH DISPOSABL AGENCY AGENCY E UNDPAD LARGE EA CT THORAX 52386 [facility] W/O 2 EIDER DEE CONTRAST RADIOLOGY MATERIAL ASSOCIAT THERAPEUT 48616 [employer], [employer], IC PX 1/> 2 HANGERSMITH HANGERSMITH AREAS ANDREY ANDREY EACH 15 [place] [address] [employer], [employer], UREA 2 HANGERSMITH HANGERSMITH NITROGEN ANDREY HANSENS QUANTITAT CO HOS CO HOS KETAN CREATININ 93397 [employer], [employer], E BLOOD 2 HANGERSMITH HANGERSMITH ANDREY ANDREY CO HOS CO HOS THERAPEUT 25329 [employer], [employer], IC PX 1/> 2 HANGERSMITH HANGERSMITH AREAS ANDREY ANDREY EACH 15 CO HOS CO HOS MIN EXERCISES HOS BED E0260 RICHARDSON RICHARDSON SEMI-ELEC 2 HOME HOME W/ANY MEDICAL MEDICAL TYPE SIDE EQUIPME EQUIPME RAIL W/MATTRSS THERAPEUT 43284 [employer], [employer], IC PX 1/> 2 HANGERSMITH HANGERSMITH AREAS ANDREY HANSENS EACH 15 [place] [address] [employer], [employer], 1/> AREAS 2 HANGERSMITH HANGERSMITH EA 15 ANDREY RIVEROOLAS MIN GAIT CO HOS CO HOS TRAINJ W/STAIR RADIOLOGI 41966 [facility] INC, [employer], C EXAM 2 HANGERSMITH HANGERSMITH CHEST 2 ANDREY ANDREY VIEWS CO HOS CO HOS FRONTAL&L ATERAL THERAPEUT 01215 [employer], [employer], IC PX 1/> 2 HANGERSMITH HANGERSMITH AREAS ANDREY ANDREY EACH 15 CO HOS CO HOS MIN EXERCISES PHYSICAL 68624 [employer], [employer], THERAPY 2 HANGERSMITH HANGERSMITH EVALUATIO ANDREYDIYA HANSENS N CO HOS CO HOS THERAPEUT 83593 [employer], [employer], IC PX 1/> 2 HANGERSMITH HANGERSMITH AREAS ANDREY ANDREY EACH 15 [place] [address] [facility] ABDOMEN & 2 MEDICAL SCO PELVIS SERV W/O FOUNDATIO CONTRAST MATERIAL CREATINE 18225 [facility] KINASE 2 Y Y TOTAL [facility] [place] [address] [facility] ALDOLASE 2 Y Y [facility] SEDIMENTA 91061 [facility] TION RATE 2 Y Y RBC [facility] AUTOMATED COLLECTIO 54906 [facility] N VENOUS 2 Y Y BLOOD [facility] VENIPUNCT URE C-REACTIV 05151 [facility] E PROTEIN 2 Y Y [facility] RADEX 16314 [facility] SPINE 2 Y Y LUMBOSACR [facility] AL 2/3 VIEWS RADEX 62117 [facility] SHOULDER 2 Y Y COMPLETE [facility] MINIMUM 2 VIEWS RADIOLOGI 03292 [facility] C 2 Y [facility]/2 VIEWS DISPBL T4535 [facility]/KATHIE 2 HOME HOME ELD/GUARD HEALTH HEALTH /PAD/UNDG AGENCY AGENCY RMNT INCONT EA ADLT SZD T4526 [facility] 2 HOME HOME INCONT HEALTH HEALTH PROD AGENCY AGENCY UNDWEAR MED EA PROTEIN 10-01-201 47970 [employer], TOTAL 2 HANGERSMITH HANGERSMITH XCPT ANDREY ANDREY REFRACTOM CO HOS CO HOS ETRY URINE URNLS DIP 33875 [employer], 2 HANGERSMITH HANGERSMITH STICK/TAB ANDREY ANDREY LET CO HOS CO HOS REAGENT AUTO MICROSCOP Y BLOOD 30861 [employer], COUNT 2 HANGERSMITH HANGERSMITH COMPLETE ANDREY ANDREY AUTO&AUTO CO HOS CO HOS DIFRNTL WBC RENAL 72927 [employer], FUNCTION 2 HANGERSMITH HANGERSMITH PANEL ANDREY ANDREY CO HOS CO HOS CULTURE 82777 [employer], BACTERIAL 2 HANGERSMITH HANGERSMITH ANDREY ANDREY QUANTTATI CO HOS CO HOS VE COLONY COUNT URINE SUSCEPTBI 07225 [employer], LTY STDY 2 HANGERSMITH HANGERSMITH ANTIMICRB ANDREY ANDREY IAL AGNT CO HOS CO HOS AGAR DILUTJ CREATININ 34932 [employer], [employer], E OTHER 2 HANGERSMITH HANGERSMITH SOURCE ANDREY ANDREY CO HOS CO HOS CULTURE 53081 [facility] [employer], BCT 2 HANGERSMITH HANGERSMITH ISOL&PRSM ANDREY ANDREY PTV ID CO HOS CO HOS ISOLATE EA URINE BLOOD 95189 [employer], [employer], COUNT 2 HANGERSMITH HANGERSMITH COMPLETE ANDREY ANDREY AUTO&AUTO CO HOS CO HOS DIFRNTL WBC BASIC 58974 [employer], METABOLIC 2 HANGERSMITH HANGERSMITH PANEL ANDREY AND[place] [address] [facility] [employer], INFUSION 2 HANGERSMITH HANGERSMITH THERAPY/P ANDREY ANDREY ROPHYLAXI CO HOS CO HOS S /DX 1ST TO 1 HR BLOOD 56750 [employer], COUNT 2 HANGERSMITH HANGERSMITH COMPLETE ANDREY ANDREY AUTO&[place] [address] [facility] [employer], [employer], INFUSION 2 HANGERSMITH HANGERSMITH HYDRATION ANDREY ANDREY INITIAL CO HOS CO HOS 31 MIN-1 HOUR URNLS DIP 71366 [employer], [employer], 2 HANGERSMITH HANGERSMITH STICK/TAB ANDREY ANDREY LET CO HOS CO HOS REAGENT AUTO MICROSCOP Y CULTURE 17390 [facility] [employer], [facility] [employer], BCT 2 HANGERSMITH HANGERSMITH ISOL&PRSM ANDREY BALDERAS PTV ID CO HOS CO HOS ISOLATE EA URINE COMPREHEN 46797 [employer], [facility], SIVE 2 HANGERSMITH HANGERSMITH METABOLIC ANDREY BALDER[place] [address] [facility] [employer] [facility], LIPASE 2 HANGERSMITH HANGERSMITH ANDREY HANSENS CO HOS CO HOS SUSCEPTBI 85735 [facility] [employer], [employer], LTY STDY 2 HANGERSMITH HANGERSMITH ANTIMICRB ANDREY RIVEROOLAS IAL AGNT CO HOS CO HOS AGAR DILUTJ DIRECT G0379 [facility] [employer] [facility], ADMISSION 2 HANGERSMITH HANGERSMITH PATIENT ANDREY ANDREY [facility] CO HOS CO HOS [facility] G0378 [facility] [employer] [facility], OBSERVATI 2 HANGERSMITH HANGERSMITH ON ANDREY BALDERAS SERVICE CO HOS CO HOS PER HOUR CULTURE 08032 [employer], BACTERIAL 2 HANGERSMITH HANGERSMITH ANDREY BALDERAS QUANTTATI CO HOS CO HOS VE COLONY COUNT URINE INJECTION J2405 [employer], 2 HANGERSMITH HANGERSMITH ONDANSETR ANDREYAlmaz BALDERAS ON HCL CO HOS CO HOS PER 1 MG ADLT SZD T4526 [facility] 2 HOME HOME INCONT HEALTH HEALTH PROD AGENCY AGENCY UNDWEAR MED EA DISPBL T4535 [facility] LIN[facility]/KATHIE 2 HOME HOME ELD/GUARD HEALTH HEALTH /PAD/UNDG AGENCY AGENCY RMNT INCONT EA ECG 44283 CRISTIAN CORNEJO CORNEJO CRISTIAN ROUTINE 2 MD ECG CONSULTIN W/LEAST G SRV 12 LDS I&R ONLY ECG 98505 CRISTIAN CORNEJO CORNEJO CRISTIAN ROUTINE 2 MD ECG CONSULTIN W/LEAST G SRV 12 LDS I&R ONLY HOSPITAL 82800 JAVIER JAVIER DISCHARGE 2 PEDRO PEDRO DAY MANAGEMEN T 30 MIN/< ECG 00056 [facility] [employer], ROUTINE 2 HANGERSMITH HANGERSMITH ECG ANDREY HANSENS W/LEAST CO HOS CO HOS 12 LDS TRCG ONLY W/O I&R COMPREHEN 65531 [facility] INC, [employer], SIVE 2 HANGERSMITH HANGERSMITH METABOLIC ANDREY ANDREY PANEL CO HOS CO HOS CULTURE 79339 [employer], [employer], BCT 2 HANGERSMITH HANGERSMITH ISOL&PRSM ANDREY ANDREY PTV ID CO HOS CO HOS ISOLATE EA URINE CULTURE 70789 [facility] INC, [employer], BACTERIAL 2 HANGERSMITH HANGERSMITH ANDREY ANDREY QUANTTATI CO HOS CO HOS VE COLONY COUNT URINE FIBRIN 97636 [employer], [employer], DGRADJ 2 HANGERSMITH HANGERSMITH PRODUCTS ANDREY ANDREY D-DIMER CO HOS CO HOS QUAL/SEMI HEATHER PROTHROMB 25692 [employer], [employer], IN TIME 2 HANGERSMITH HANGERSMITH ANDREY ANDREY CO HOS CO HOS SUSCEPTBI 71532 [facility] INC, [employer], LTY STDY 2 HANGERSMITH HANGERSMITH ANTIMICRB ANDREY ANDREY IAL AGNT CO HOS CO HOS AGAR DILUTJ CREATINE 50367 [facility] INC, [employer], KINASE 2 HANGERSMITH HANGERSMITH TOTAL ANDREY ANDREY CO HOS CO HOS CREATINE 84607 [employer], [employer], KINASE MB 2 HANGERSMITH HANGERSMITH FRACTION [place] [address] [employer], [employer], INFUSION 2 HANGERSMITH HANGERSMITH THERAPY/P ANDREY ANDREY ROPHYLAXI CO HOS CO HOS S /DX 1ST TO 1 HR URNLS DIP 46101 [employer], [employer], 2 HANGERSMITH HANGERSMITH STICK/TAB ANDREY ANDREY LET CO HOS CO HOS REAGENT AUTO MICROSCOP Y NATRIURET 46011 [employer], [employer], IC 2 HANGERSMITH HANGERSMITH PEPTIDE [place] [address] [employer], [employer], TROPONIN 2 HANGERSMITH HANGERSMITH QUANTITAT ANDREY [place] [address] [employer], [employer], INFUSION 2 HANGERSMITH HANGERSMITH HYDRATION ANDREY ANDREY INITIAL CO HOS CO HOS 31 MIN-1 HOUR BLOOD 09955 [employer], [employer], COUNT 2 HANGERSMITH HANGERSMITH COMPLETE ANDREY ANDREY AUTO&AUTO CO HOS CO HOS DIFRNTL WBC RADIOLOGI 73731 [facility], [facility] INC, C 2 HANGERSMITH HANGERSMITH EXAMINATI ANDREY HANSENS ON CHEST CO HOS CO HOS [place] FRONTAL LIPID 65689 [facility] INC, PANEL 2 HANGERSMITH HANGERSMITH ANDRE[place] [address] [facility] INC, FREE 2 HANGERSMITH HANGERSMITH THYROXINE ANDRE[place] [address] [facility] INC, THYROID 2 HANGERSMITH HANGERSMITH STIMULATI ANDREY ANDREY NG CO HOS CO HOS HORMONE TSH COMPREHEN 74625 [facility] INC, SIVE 2 HANGERSMITH HANGERSMITH METABOLIC ANDREY ANDREY PANEL CO HOS CO HOS ECG 75227 CRISTIAN CORNEJO CORNEJO CRISTIAN ROUTINE 2 MD ECG CONSULTIN W/LEAST G SRV 12 LDS I&R ONLY RADIOLOGI 21278 [facility] INC, C EXAM 2 HANGERSMITH HANGERSMITH CHEST 2 ANDREY ANDREY VIEWS CO HOS CO HOS FRONTAL&L ATERAL COMPREHEN 95952 [facility] INC, SIVE 2 HANGERSMITH HANGERSMITH METABOLIC ANDREY ANDREY PANEL CO HOS CO HOS ECG 88269 [facility] INC, ROUTINE 2 HANGERSMITH HANGERSMITH ECG ANDREY ANDREY W/LEAST CO HOS CO HOS 12 LDS TRCG ONLY W/O I&R GASES 32565 [facility] [employer], [facility] INC, BLOOD PH 2 HANGERSMITH HANGERSMITH DIRECT ANDREY BALDERAS FELA XCPT CO HOS CO HOS PULSE OXIMITRY CULTURE 93101 [facility] INC, BACTERIAL 2 HANGERSMITH HANGERSMITH ANDREY ANDREY QUANTTATI CO HOS CO HOS VE COLONY COUNT URINE URNLS DIP 47846 [facility] INC, 2 HANGERSMITH HANGERSMITH STICK/TAB ANDREY BALDERAS LET CO HOS CO HOS REAGENT AUTO MICROSCOP Y ARTERIAL 37806 [facility] INC, PUNCTURE 2 HANGERSMITH HANGERSMITH WITHDRAWA ANDREY HANSENS L BLOOD CO HOS CO HOS DX INJECTION J2280 [facility] INC, 2 HANGERSMITH HANGERSMITH MOXIFLOXA ANDREY HANSENS KJ 100 CO HOS CO HOS MG BASIC 88064 [facility] [employer], [employer], METABOLIC 2 HANGERSMITH HANGERSMITH PANEL ANDREY BALDERAS [place] [address] [employer], [employer], INFUSION 2 HANGERSMITH HANGERSMITH THERAPY/P ANDREY BALDERAS ROPHYLAXI CO HOS CO HOS S /DX 1ST TO 1 [place] [address] [employer], [employer], INFUSION 2 HANGERSMITH HANGERSMITH HYDRATION ANDREY BALDERAS EACH [place] [address] [employer], [employer], INFUSION 2 HANGERSMITH HANGERSMITH HYDRATION ANDREY BALDERAS INITIAL CO HOS CO HOS 31 MIN-1 HOUR BLOOD 77778 [employer], [employer], COUNT 2 HANGERSMITH HANGERSMITH COMPLETE ANDREY BALDERAS AUTO&AUTO CO HOS CO HOS DIFRNTL WBC SUSCEPTBI 07711 [employer], [employer], LTY STDY 2 HANGERSMITH HANGERSMITH ANTIMICRB ANDREY BALDERAS IAL AGNT CO HOS CO HOS [facility] G0378 [employer], [employer], OBSERVATI 2 HANGERSMITH HANGERSMITH ON ANDREY BALDERAS SERVICE CO HOS CO HOS PER HOUR CULTURE 20787 [employer], [employer], BCT 2 HANGERSMITH HANGERSMITH ISOL&PRSM ANDREY BALDERAS PTV ID CO HOS CO HOS ISOLATE EA URINE RADIOLOGI 30198 [facility] EXAM 2 LILIBETH CHEST 2 RADIOLOGY VIEWS ASSOCIAT FRONTAL&L ATERAL INJECTION J0280 [facility] 2 Y [facility] UP TO 250 [address] [facility] 2 Y Y XERS&/OR [facility] RX CONT ECG TRCG ONLY CV STRS 43790 [facility] TST 2 MEDICAL SAMIRA XERS&/OR SERV RX CONT FOUNDATIO ECG W/O I&R TECHNETIU A9500 [facility] TC-99M 2 Y Y [facility] DX PER STUDY DOSE MYOCARDIA 15951 [facility] SPECT 2 Y Y [facility] STUDIES INJECTION J2785 [place] [address] Y [facility] ON 0.1 MG CV STRS 51385 [place] PICHARDO TST 2 MEDICAL SAMIRA XERS&/OR SERV RX CONT [place]OUNDATIO ECG I&[place] [address] [place] DISANTIS ABDOMEN & 2 MEDICAL JEWELS PELVIS SERV W/O FOUNDATIO CONTRAST MATERIAL ECG 43491 CRISTIAN CORNEJO CORNEJO CRISTIAN ROUTINE 2 MD ECG CONSULTIN W/LEAST G SRV 12 LDS I&R ONLY URINLS 07482 [facility] DAVEY DIP 2 NURSE GWE STICK/TAB PRACTITIO LET NER GR REAGNT NON-AUTO MICRSCPY CULTURE 22670 [facility] BACTERIAL 2 Y Y [facility] QUANTTATI VE COLONY COUNT URINE CUL BACT 19372 [facility] AEROBIC 2 Y Y [facility] METHS DEFINITIV E EA ISOL SUSCEPTBI 24676 [facility] STDY 2 Y Y [facility] IAL AGNT AGAR DILUTJ SUSCEPTIB 90619 [facility] STDY 2 Y Y [facility] IAL MICRO/AGA R DILUTJ ECG 43204 CRISTIAN CORNEJO CORNEJO CRISTIAN ROUTINE 2 MD ECG CONSULTIN W/LEAST G SRV 12 LDS I&R ONLY ECG 35710 CRISTIAN CORNEJO CORNEJO CRISTIAN ROUTINE 1 MD ECG CONSULTIN W/LEAST G SRV 12 LDS I&R ONLY ECG 82601 CRISTIAN CORNEJO CORNEJO CRISTIAN ROUTINE 1 MD ECG CONSULTIN W/LEAST G SRV 12 LDS I&R ONLY URNLS DIP 42204 ANDREY BALDERAS 1 CO CO STICK/TAB [facility] LET REAGENT AUTO MICROSCOP Y BLOOD 72850 ANDREY BALDERAS COUNT 1 CO CO COMPLETE [facility] AUTO&[place] [address] ANDREY BALDERAS BLOOD/URI 1 CO CO C ACID [facility] BLOOD 41341 ANDREY BALDERAS COUNT 1 CO CO SMEAR [facility] MCRSCP W/MNL DIFRNTL WBC COUNT PROTEIN 65311 ANDREY BALDERAS TOTAL 1 CO CO XCPT [facility] REFRACTOM ETRY URINE SUSCEPTBI 00421 ANDREY BALDERAS LTY STDY 1 [facility] AGAR DILUTJ CULTURE 04207 ANDREY BALDERAS BACTERIAL 1 CO [facility] QUANTTATI VE COLONY COUNT URINE COLLECTIO 78788 ANDREY BALDERAS N VENOUS 1 CO W[place] BLOOD [facility] VENIPUNCT URE CREATININ 75759 ANDREY Bolivar OTHER 1 CO CO SOURCE [facility] [place] [address] ANDREY BALDERAS PHOSPHORU 1 CO [facility]ICAL CENTER ENTERPRISE INORGANIC CULTURE 60586 ANDREY BALDERAS BCT 1 CO [place] ISOL&PRSM [facility] PTV ID ISOLATE EA URINE COMPREHEN 37884 ANDREY BALDERAS SIVE 1 CO CO [facility] 24985 [facility] DISCHARGE 1 [place] FAMILY DAY MEDICINE MANAGEMEN P T 30 MIN/< DUP-SCAN 04115 [place] MARIO XTR VEINS 1 MEDICAL [place] SERV UNILATERA FOUNDATIO L/LIMITED STUDY ECG 42659 [place] OLIVEIRA ROUTINE 1 MEDICAL NAN ECG SERV W/LEAST FOUNDATIO 12 LDS I&R ONLY RADIOLOGI 78786 [place] [facility] C EXAM 1 MEDICAL CHEST 2 SERV VIEWS FOUNDATIO FRONTAL&L ATERAL RADIOLOGI 39121 ANDREY BALDERAS C 0 [facility] ON PELVIS 1/2 VIEWS RADIOLOGI 65740 ANDREY BALDERAS C 0 [facility] KNEE 3 VIEWS OVA&ZONIA 90431 ANDREY BALDERAS ITES 0 CO CO [facility]PITAL SMEARS CONCENTRA TION & ID COMPLEMEN 43043 ANDREY Flor TOTAL 0 CO CO HEMOLYTIC [facility] URNLS DIP 00481 ANDREY BALDERAS 0 CO CO STICK/TAB [facility] LET REAGENT AUTO MICROSCOP Y RENAL 26643 ANDREY BALDERAS FUNCTION 0 CO CO [facility] PROTEIN 44136 ANDREY BALDERAS TOTAL 0 [facility] E[facility] URINE BLOOD 59769 ANDREY ANDREY COUNT 0 CO CO SMEAR [facility] MCRSCP W/MNL DIFRNTL WBC COUNT RADEX HIP 03238 ANDREY BALDERAS 0 CO CO [facility] L COMPLETE MINIMUM [place] [address] ANDREY ANDREY PARATHORM 0 CO CO [facility] CREATININ 32310 ANDREY BALDERAS E OTHER 0 CO CO SOURCE [facility] DNA 91942 ANDREY BALDERAS ANTIBODY 0 CO CO RUBY/DO [facility] UBLE STRANDED CREATINE 03226 ANDREY ANDREY KINASE 0 CO CO TOTAL [facility] 25 52568 ANDREY ANDREY HYDROXY 0 CO CO INCLUDES HOSPITAL [place] [address] ANDREY ANDREY ALDOLASE 0 CO CO [facility] COLLECTIO 30101 ANDREY ANDREY N VENOUS 0 CO CO BLOOD [facility] VENIPUNCT URE COMPLEMEN 64385 ANDREY RIVEROOLAS T ANTIGEN 0 CO CO EACH [facility] COMPONENT C-REACTIV 64390 ANDREY ANDREY E PROTEIN 0 CO CO [facility] SEDIMENTA 34658 ANDREY BALDERAS TION RATE 0 CO CO RBC [facility] NON-AUTOM ATED COLLECTIO 73719 [facility] UN[facility]IT N VENOUS 0 Y Y BLOOD [facility] VENIPUNCT URE COMPREHEN 48603 [facility] UNIVERSIT SIVE 0 Y Y METABOLIC [facility] PANEL BLOOD 17676 [facility] UNIVERSIT COUNT 0 Y Y COMPLETE [facility] AUTO&AUTO DIFRNTL WBC BLOOD 19608 [facility] COUNT 0 Y Y [facility] AUTO&AUTO DIFRNTL WBC COMPREHEN 45895 UN[facility]IT UNIVERSIT SIVE 0 Y Y METABOLIC [facility] PANEL COLLECTIO 46660 UN[facility]ERSIT UNIVERSIT N VENOUS 0 Y Y BLOOD [facility] VENIPUNCT URE CHROMATOG 98261 [facility] UNIVERSIT SURYA 0 Y Y HEATHER [facility] COLUMN 1 ANALYTE KARLENE ANESTHESI 88355 [facility] G A EYE 0 ANESTHESI LENS A ASSOC SURGERY OPH BMTRY 93201 PHILIPP RIVERO BRANT PRTL 0 ROBERT COHER INTRFRMTR Y IO LENS PWR KELLEE CATARACT 99450 [facility] REMOVAL 0 [facility] EYE [facility] EYE INSERTION SURG SURG OF LENS AMBULA AMBULA ECG [id number] [facility] ROUTINE 0 Y Y ECG [facility] W/LEAST 12 LDS TRCG ONLY W/O I&R Encounters Encounter Start End Date Code Location Performer Type Date [facility], 7 7 HOME INPATIENT HEALTH AGENCY OFFICE [id number] [facility] GUILLEN OUTPATIEN 7 7 MEDICAL T VISIT SERV [address] [facility] [place] - 7 7 [facility]PATIEN [facility] [place] - 7 7 [facility] OUTPATIEN [facility] 7 7 HOME INPATIENT HEALTH AGENCY OFFICE 04524 [facility] ARIANE OUTPATIEN 7 7 MEDICAL JR T NEW 45 SERV MINUTES FOUNDATIO N OFFICE 23755 [facility] HERBERT OUTPATIEN 7 7 MEDICAL T VISIT SERV 40 FOUNDATIO MINUTES N [facility], 7 7 HOME INPATIENT HEALTH AGENCY [facility] - 7 7 [facility]ALS OFFICE 19071 [facility] HERBERT OUTPATIEN 7 7 MEDICAL T VISIT SERV 40 FOUNDATIO MINUTES N [facility], 7 7 HOME INPATIENT HEALTH AGENCY OFFICE 04663 [facility] AMADOR OUTPATIEN 6 6 MEDICAL T VISIT SERV [address] [facility] [place] - 6 6 MEM H[facility]P OUTPATIEN INC T OFFICE 22173 [facility] [place] OUTPATIEN 6 6 PHYSICIAN T VISIT S GROUP 10 MINUTES OFFICE 42343 [facility] OUTPATIEN 6 6 PHYSICIAN T VISIT S GROUP 10 MINUTES [facility]OSP[facility]SY - 6 6 [facility] 69747 [facility] MAD OUTPATIEN 6 6 PHYSICIAN T VISIT S GROUP 15 MINUTES HOSPITAL KRISSY - 6 6 [facility] 64705 [facility] H[facility]GE MAD OUTPATIEN 6 6 PHYSICIAN T NEW 30 S GROUP MINUTES HOSPITAL KRISSY [facility] 6 6 [facility]PATIEN [facility] KRIS[facility] - 6 6 [facility] [address] [place] HERBERT SIMEONI OUTPATIEN 6 6 MEDICAL T VISIT SERV 25 FOUNDATIO MINUTES HOME [facility], 6 6 HOME INPATIENT HEALTH AGENCY EMERGENCY 89782 [facility] DEPT 6 6 HARIS VISIT EMERGENCY HIGH PHYS SEVERITY& [facility] 6 6 HOME INPATIENT HEALTH AGENCY HOSPITAL UNIVERSIT - 6 6 Y [facility] T OFFICE [address]493 [place] HERBERT SIMEON[place] OUTPATIEN 6 6 MEDICAL T VISIT SERV 40 FOUNDATIO MINUTES N OFFICE 13925 [place] [facility] 6 6 [facility] V[facility] INTERNAL 15 MEDI MINUTES HOSPITAL KRISSY - OTHER 6 6 [facility] HOME [facility], 6 6 HOME INPATIENT HEALTH AGENCY OFFICE 66822 [place] [facility] OUTPATIEN 6 6 [facility] T VISIT INTERNAL 15 MEDI MINUTES OFFICE 83384 [place] WILMER AMADOR OUTPATIEN 6 6 MEDICAL T VISIT SERV [address] [facility] KRISSY - OTHER 6 6 [facility] INC OFFICE 86567 FALLAP LUJAN OUTPATIEN 6 6 YONY KRIS T NEW 30 MINUTES HOME [facility]ALTH, 6 6 HOME INPATIENT HEALTH [facility] KRISSY - 6 6 [facility] OUTPATIEN INC T OFFICE 33070 [place] BESS[facility] OUTPATIEN 6 6 [facility] TIMOTHY T VISIT INTERNAL 25 MED MINUTES HOSPITAL UNIVERSIT - 5 5 Y [facility] T OFFICE 03635 MINH ARGUETA OUTPATIEN 5 5 MEDICAL T VISIT SERV [address] [facility] KRISSY - 5 5 [facility] OUTPATIEN INC T EMERGENCY 72613 TONIO JACKSON DEPT 5 5 PHYSICIAN U CAROL VISIT S, PLLC HIGH SEVERITY& THREAT FUNJ EMERGENCY 98071 KRISSY 5 5 [facility] DEPARTMEN INC T VISIT HIGH/URGE NT SEVERITY HOME [facility], 5 5 HOME INPATIENT HEALTH [facility]ENCY OFFICE [address] [facility] PHYSICIAN T VISIT S GROUP 15 MINUTES HOME [facility], 5 5 HOME INPATIENT HEALTH AGENCY OFFICE 92294 [place] BESS[facility] OUTPATIEN 5 5 [facility] T VISIT INTERNAL 15 MED MINUTES HOSPITAL KRISSY - 5 5 [facility] OUTPATIEN INC HOSPITAL KRISSY - 5 5 [facility] OUTPATIEN INC T OFFICE [address] [facility] TOElo OUTPATIEN 5 5 PHYSICIAN T NEW 30 S GROUP MINUTES HOSPITAL KRISSY - 5 5 [facility] OUTPATIEN INC T OFFICE 71915 MINH AMADOR OUTPATIEN 5 5 MEDICAL T VISIT SERV 25 FOUNDATIO MINUTES N OFFICE 18883 [place] JAQUEZ OUTPATIEN 5 5 [facility] T VISIT INTERNAL 15 MEDI MINUTES HOSPITAL KRISSY - OTHER 5 5 [facility] INC HOME [facility], 5 5 HOME INPATIENT HEALTH AGENCY OFFICE 83514 [place] JAQUEZ OUTPATIEN 5 5 [facility] T VISIT INTERNAL 25 MEDI MINUTES HOME [facility], 5 5 DIST OTHER HEALTH DEPT [facility] KRISSY - 5 5 [facility] OUTPATIEN INC T HOME [facility] 5 5 DIST OTHER HEALTH DEPT [facility] 5 5 HOME INPATIENT HEALTH AGENCY [facility], 5 5 DIST OTHER HEALTH DEPT [facility] OFFICE 03876 MINH ARGUETA OUTPATIEN 5 5 MEDICAL T VISIT SERV 40 FOUNDATIO MINUTES N EMERGENCY 27378 KRISSY 5 5 [facility] DEPARTMEN INC T VISIT HIGH/URGE NT SEVERITY HOSPITAL KRISSY - 5 5 [facility] OUTPATIEN INC T HOME [facility], 5 5 DIST OTHER HEALTH DEPT [facility], 5 5 DIST OTHER HEALTH DEPT [facility], 5 5 HOME OUTPATIEN HEALTH T AGENCY OFFICE 70237 [facility] BESSON OUTPATIEN 5 5 [facility] TIMOTHY T VISIT INTERNAL 15 MED MINUTES HOME [facility], 5 5 DIST OTHER HEALTH DEPT [facility] OFFICE 53847 MINH AMADOR OUTPATIEN 5 5 MEDICAL T VISIT SERV 25 FOUNDATIO MINUTES N [facility], 5 5 DIST OTHER HEALTH 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 HOME [facility], 5 5 DIST OTHER HEALTH 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 HOME [facility], 5 5 HOME OUTPATIEN HEALTH T AGENCY OFFICE 01683 [place] HERBERT KRI OUTPATIEN 5 5 MEDICAL T VISIT SERV 40 FOUNDATIO MINUTES N HOME [facility], 5 5 DIST OTHER HEALTH 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 HOME [facility], 4 4 HOME OUTPATIEN HEALTH T AGENCY [facility], 4 4 DIST OTHER HEALTH 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 HOME [facility], 4 4 DIST OTHER HEALTH 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 OFFICE 04448 [place] HERBERT ELLIE OUTPATIEN 4 4 MEDICAL T VISIT SERV 15 FOUNDATIO MINUTES N HOME [facility], 4 4 HOME OUTPATIEN HEALTH T AGENCY OFFICE 89466 [place] WILMER AMADOR OUTPATIEN 4 4 MEDICAL T VISIT SERV 25 FOUNDATIO MINUTES HOSPITAL KRISSY - 4 4 [facility] OUTPATIEN INC T HOSPITAL KRISSY - 4 4 [facility] OUTPATIEN INC T HOME [facility], 4 4 DIST OTHER HEALTH 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 HOME [facility], 4 4 DIST OTHER HEALTH DEPT [facility] HOME [facility], 4 4 HOME OUTPATIEN HEALTH T AGENCY [facility], 4 4 DIST OTHER HEALTH 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 OFFICE 09618 [place] GUILLEN PERRY OUTPATIEN 4 4 MEDICAL T VISIT SERV 25 FOUNDATIO MINUTES OFFICE 30338 [place] HERBERT KRI OUTPATIEN 4 4 MEDICAL T VISIT SERV 25 FOUNDATIO MINUTES HOSPITAL KRISSY - 4 4 [facility] OUTPATIEN INC T HOME [facility], 4 4 DIST OTHER HEALTH 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 HOME [facility], 4 4 DIST OTHER HEALTH 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 HOME [facility], 4 4 HOME OUTPATIEN HEALTH T AGENCY HOME [facility], 4 4 DIST OTHER HEALTH 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 OFFICE 95408 [place] HERBERT ARGUETA OUTPATIEN 4 4 MEDICAL T VISIT SERV 40 FOUNDATIO MINUTES HOME [facility], 4 4 DIST OTHER HEALTH 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 OFFICE 87347 [place] WILMER AMADOR OUTPATIEN 4 4 MEDICAL T VISIT SERV 25 FOUNDATIO MINUTES [facility] [place] [facility] INC, ACCESS 4 4 [facility] HOME [facility] 4 4 DIST OTHER HEALTH 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 HOME [facility], 4 4 HOME OUTPATIEN HEALTH T AGENCY HOME [facility], 4 4 DIST OTHER HEALTH 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 OFFICE 86272 [place] EM[facility]ALD [facility] 4 4 [facility] TIMOTHY T VISIT INTERNAL 15 MED MINUTES HOME [facility] HEALTH, 4 4 HOME OUTPATI HEALTH T AGENCY [facility]ALTH, 4 4 DIST OTHER HEALTH DEPT [facility] UNIVERSIT - 3 3 [facility] T OFFICE 89991 MINH AMADOR OUTPATIEN 3 3 MEDICAL T VISIT SERV 25 FOUNDATIO MINUTES CR[facility]ICAL [place] [facility] INC, ACCESS 3 3 [facility]ICAL [place] [facility] INC, ACCESS 3 3 [facility] HOME [facility], 3 3 DIST OTHER HEALTH 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 OFFICE 20829 [place] HEBER OUTPATIEN 3 3 MEDICAL EJ T NEW 45 SERV MINUTES FOUNDATIO [facility] DIST OTHER HEALTH 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 CRITICAL [place] [facility] INC, ACCESS 3 3 [facility] HEALTH, 3 3 HOME OUTPATIEN HEALTH T AGENCY OFFICE 50241 [place] HERBERT ARGUETA OUTPATIEN 3 3 MEDICAL T VISIT SERV 40 FOUNDATIO MINUTES HOME [facility], 3 3 DIST OTHER HEALTH 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 OFFICE 35457 MINH AMADOR OUTPATIEN 3 3 MEDICAL T VISIT SERV 25 FOUNDATIO MINUTES [facility], 3 3 DIST OTHER HEALTH DEPT [facility] CR[facility]ICAL [place] [facility] INC, ACCESS 3 3 [facility] CRITICAL [place] [facility] INC[facility] ACCESS 3 3 [facility] CRITICAL [place] [facility] INC, ACCESS 3 3 [facility] HOS [facility], 3 3 DIST OTHER HEALTH 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 OFFICE 41054 [place] BESSON OUTPATIEN 3 3 [facility] TIMOTHY T VISIT INTERNAL 15 MED MINUTES HOME [employer], 3 3 HOME OUTPATIEN HEALTH T AGENCY [facility] [employer], 3 3 DIST OTHER HEALTH 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 OFFICE 84802 ALLRAN JR ALLRAN JR OUTPATIEN 3 3 SAMIRA SAMIRA T VISIT 15 MINUTES OFFICE 25294 CRISTIAN CLEMENTE MURILLO CAR OUTPATIEN 3 3 MD T VISIT CONSULTIN 25 G SERV MINUTES OFFICE 47095 [place] BESSON OUTPATIEN 3 3 [facility] TIMOTHY T VISIT INTERNAL 25 MED MINUTES CR[facility]ICAL [facility] INC, ACCESS 3 3 [facility] [place] - 3 3 [facility] T CRITICAL [facility] INC, ACCESS 3 3 [facility] - 3 3 [facility] [place] 3 3 [facility], 3 3 DIST OTHER HEALTH DEPT [facility] [place] - 3 3 [facility] [place] - 3 3 [facility], 3 3 DIST OTHER [facility]ALTH [facility] KRISSY - 3 3 [facility] 67760 [facility] 3 3 [facility] VISIT [facility]NAL 15 MED MINUTES HOSPITAL [place] - 3 3 [facility] [place] - 3 3 [facility], 3 3 DIST OTHER [facility]ALTH [facility] OFFICE 26257 CELIA YANG [facility] 3 3 SAMIRA SAMIRA T VISIT 15 MINUTES HOME [facility] HEALTH, 3 3 DIST OTHER HEALTH DEPT [facility], 3 3 HOME [facility] T AGENCY CRITICAL [facility] INC, ACCESS 3 3 [facility] HOME [facility] 3 3 DIST OTHER HEALTH DEPT [facility] CRITICAL [facility] INC, ACCESS 3 3 [facility] OFFICE 96781 CELIA YANG [facility] 3 3 SAMIRA SAMIRA T VISIT 15 MINUTES OFFICE 63447 MINH AMADOR OUTPATIEN 3 3 MEDICAL T VISIT SERV 25 FOUNDATIO MINUTES CRITICAL [facility] INC, ACCESS 3 3 [facility] HEALTH, 3 3 DIST OTHER HEALTH DEPT [facility] CRITICAL [facility] INC, ACCESS 3 3 [facility] HOS CRITICAL [facility], ACCESS 3 3 [facility]OS HOME [facility] HEALTH, 3 3 [facility] T AGENCY HOSPITAL UNIVERSIT - 3 3 Y [facility] KRISSY - 3 3 MEM [facility] OUTPATIEN INC T HOME [facility] HEALTH, 3 3 DIST OTHER HEALTH DEPT [facility] UNIVERSIT - 3 3 Y [facility] T OFFICE 63244 MINH ARGUETA OUTPATIEN 2 2 MEDICAL T VISIT SERV 25 FOUNDATIO MINUTES HOME [facility] HEALTH, 2 2 [facility] T AGENCY OFFICE 80264 CELIA YANG JR OUTPATIEN 2 2 SAMIRA SAMIRA T NEW 30 MINUTES HOME [facility] HEALTH, 2 2 DIST OTHER HEALTH DEPT [facility] HOME [facility], 2 2 [facility] T AGENCY CRITICAL [facility], ACCESS 2 2 [facility] CO HOS CRITICAL [facility], ACCESS 2 2 [facility] HOS CRITICAL [facility] ACCESS 2 2 [facility] HOS CRITICAL [facility], ACCESS 2 2 [facility] CO [facility] - 2 2 [facility] OFF[facility] 93353 [place] ENDEAN OUTPATIEN 2 2 MEDICAL XOCHITL T VISIT SERV 15 FOUNDATIO MINUTES HOME [facility] HEALTH, 2 2 DIST OTHER HEALTH DEPT [facility] UNIVERSIT - 2 2 [facility] T OFFICE 35033 [place] HERBERT KRI OUTPATIEN 2 2 MEDICAL T VISIT SERV 25 FOUNDATIO MINUTES HOME [facility], 2 2 [facility] T AGENCY OFFICE 91357 [place] GUILLEN PERRY OUTPATIEN 2 2 MEDICAL T VISIT SERV 25 FOUNDATIO MINUTES HOME [facility] HEALTH, 2 2 DIST OTHER HEALTH DEPT [facility] EMERGENCY 53719 [facility], 2 2 [facility] T VISIT CO HOS HIGH/URGE NT SEVERITY CRITICAL [facility], ACCESS 2 2 [facility], 2 2 [facility] T AGENCY [facility], 2 2 DIST OTHER HEALTH DEPT [facility] EMERGENCY 21061 AND[facility] HERRERA 2 2 CO [facility] T VISIT MODERATE SEVERITY EMERGENCY 34062 [facility], DEPT 2 2 [facility] VISIT ANDREY HIGH CO HOS SEVERITY& THREAT [facility] INC, - 2 2 [facility] OUTPATIEN ANDRE[facility] T CO HOS HOME [facility], 2 2 DIST OTHER HEALTH DEPT [facility], - 2 2 [facility] OUTPATIEN [facility]RE[facility] T CO HOS OFFICE 56850 [facility] OUTPATIEN 2 2 [place] FAMILY CAROL T VISIT MEDICINE 25 P MINUTES OFFICE 54114 [facility] FED LAUSE FED OUTPATIEN 2 2 T NEW 20 MINUTES HOME [facility] 2 2 DIST OTHER HEALTH DEPT [facility], 2 2 DIST OTHER HEALTH DEPT [facility], - 2 2 [facility] INPATIENT [facility] CO HOS EMERGENCY 08053 [facility], 2 2 [facility] DEPARTMEN [facility] T VISIT CO HOS HIGH/URGE NT SEVERITY HOSPITAL [facility], - 2 2 [facility] OUTPATIEN ANDRE[facility] T CO HOS EMERGENCY 95454 ANDRE[facility] JAVIER [address] [facility] T VISIT MODERATE SEVERITY OFFICE 87962 [place] [facility]MARIA [facility] 2 2 MEDICAL XOCHITL T NEW 60 SERV MINUTES [facility] 2 2 Y [facility] T OFFICE 26383 [facility] 2 2 [place] FAMILY T VISIT MEDICINE 15 P [facility] UNIVERSIT [facility] 2 2 Y [facility] T OFFICE 20867 [facility] 2 2 NURSE HUSSEIN T NEW 45 PRACTITIO MINUTES [facility], - 1 1 [facility] INPATIENT [facility] CO [facility] - 1 1 [facility] UN[facility] 1 1 Y INPATIENT HOSPITAL OFFICE 75037 [place] HERBERT AR[place]ETA [facility] 1 1 MEDICAL T VISIT SERV 40 [facility] ANDREY - 0 0 [facility] UN[facility] - 0 0 Y [facility] - 0 0 Y [facility] T OFFICE 22539 [facility] OUTPATI[facility] 0 0 [place] FAM[place] CAROL T VISIT MEDICINE 15 P MINUTES OFFICE 71485 [facility] 0 0 [place]AR[place] T VISIT 15 MINUTES OFFICE 52460 [facility] OUTPATI[facility] 0 0 [place]ARITA T VISIT 15 MINUTES OFFICE 56723 [facility] OUTPATI[facility] 0 0 [place]AR[place] T VISIT 15 MINUTES [facility] UNIVERSIT - 0 0 Y [facility] T
--- OUTSIDE RECORDS SUMMARY | 2017-09-02 16:55 | External Medical Summary Rpt | CCD ---
Author Author , JACQUELYN Organization JACQUELYN Address Unknown Phone [email or web address] Care Team Providers Care Language Asst Name Role Phone [employer] Unavailable Unavailable INC, [employer] Unavailable Unavailable INC, [employer] ALLRAN JR SAMIRA, ALLRAN Unavailable Unavailable JR SAMIRA ALLRAN JR SAMIRA, ALLRAN Unavailable Unavailable JR SAMIRA JAQUEZ HOL, JAQUEZ Unavailable Unavailable HOL BERNERT EJ, BERNERT Unavailable Unavailable EJ BESSON TIMOTHY, BESSON Unavailable Unavailable TIMOTHY MCKEON, MCKEON Unavailable Unavailable MCKEON ALL, MCKEON ALL Unavailable Unavailable [facility] Unavailable Unavailable [facility], [facility] TAI KRIS, TAI Unavailable Unavailable KRIS [...] [facility] AN[facility] OF Unavailable Unavailable THE BLUE, [facility] ARIANE JR, ARIANE Unavailable Unavailable JR COOK LILIBETH, COOK LILIBETH Unavailable Unavailable KENNY ANTWAN, Unavailable Unavailable KENNY ANTWAN [facility] Un[facility] Unavailable [facility], [facility] Unavailable Unavailable [facility]OC, [facility] DISANTIS JEWELS, Unavailable Unavailable DISANTIS [...] Unavailable SONY PRICE, Unavailable Unavailable SONY PRICE [facility] Unavailable Unavailable CARE, [facility] Unavailable Unavailable CARE, [facility] Unavailable Unavailable INC, [facility] Unavailable [facility]available HOSPITAL P, [facility] WALKER RADHA, WALKER RADHA Unavailable Unavailable [facility], Unavailable Unavailable [facility] DAVEY GWE, DAVEY Unavailable Unavailable GWE HOUSMAN KAMILA, HOUSMAN Unavailable Unavailable KAMILA [facility] Unavailable Unavailable CORPORATION, [facility] Unavailable Unavailable CORPORATION, [facility] Unavailable Unavailable CORPORATION, [employer] Un[facility] Unavailable GROUP PS, [facility] Unavailable Unavailable IM[facility]ING [facility], [facility] KERN CAR, KERN CAR [...] PEDRO MAJORS G, MAJORS G Unavailable Unavailable [facility] Unavailable Unavailable SERVICES, [facility] Unavailable Unavailable ASSOCIAT, [facility] MCKEMIE JR KAMILA, Unavailable Unavailable MCKEMIE JR KAMILA [facility], Unavailable Unavailable [facility], [facility] YOUTH PROGRAM ASSISTANT [facility] Unavailable Unavailable [facility], [facility] YOUTH PROGRAM ASSISTANT [facility] AVILES KAMILA, AVILES KAMILA Unavailable Unavailable RONY LEVY, RONY Unavailable Unavailable [facility], Unavailable Unavailable [facility] Unavailable Unavailable AMBULANCE SE, [facility] Unavailable Unavailable AMBULANCE SE, [facility] CRISTIAN CORNEJO MD Unavailable [...] EQUIPME SOTINGEANU CAROL, Unavailable Unavailable SOT[facility]EAN[facility] CAROL [facility] Unavailable Unavailable EMERGENCY PHYS, [facility], Unavailable Unavailable [facility] Unavailable Unavailable CLINIC, [facility], YOO Unavailable Unavailable [facility] Unavailable Unavailable [facility], [facility] Unavailable Unavailable [facility], [facility] Unavailable Unavailable SU[facility]PLY, [facility] Unavailable Unavailable MEDICINE , [facility], Unavailable Unavailable [facility] # Unavailable Unavailable [id number], [facility] # [id number] GUILLEN, GUILLEN Unavailable Unavailable GUILLEN PERRY, GUILLEN PERRY Unavailable Unavailable [facility] Unavailable [facility]available DEPT THERAPY MANAGER, [facility] DEPT THERAPY MANAGER [facility] Unavailable Unavailable AGENCY, [facility] MARIO SANTA, MARIO Unavailable Unavailable [facility] Purpose Continuity of Care Document - 08-29-2010 through 2016 Problems Code Diagnosis DOS Provider Status N189 CHRONIC 08-25-2017 [facility] DISEASE [facility]ARE UNSPECIFIED K580 IRRITABLE 07-25-2017 [facility] BOWEL [facility]ALTH SYNDROME AGENCY WITH DIARRHEA M1990 UNSPECIFIED 07-25-2017 [facility] OSTEOARTHRI AGENCY TIS UNSPECIFIED SITE N8110 CYSTOCELE 07-25-2017 [facility] UNSPECIFIED HEALTH AGENCY R159 FULL 07-25-2017 [facility] INCONTINENC HEALTH E OF FECES AGENCY R3981 FUNCTIONAL 07-25-2017 [facility] URINARY HEALTH INCONTINENC AGENCY E I129 HYPERTENSIV 07-16-2017 [facility] CKD SERV W/STAGE 1-4 [facility] CKD OR UNS CKD M329 SYSTEMIC 07-16-2017 [facility] LUPUS SERV ERYTHEMATOS [facility] US UNSPECIFIED M810 AGE-RELATED 07-16-2017 [facility] OSTEOPOROSI [facility] S W/O CURRNT PATH FX N039 CHRONIC 07-16-2017 [facility] NEPHRITIC SERV SYND W/UNS FOUNDATION MORPHOLOGIC CHANGES N183 CHRONIC 07-16-2017 [facility] KIDNEY SERV DISEASE FOUNDATION STAGE 3 MODERATE N250 RENAL 07-16-2017 [facility] OSTEODYSTRO SERV PHY FOUNDATION R809 PROTEINURIA 07-16-2017 [facility] UNSPECIFIED FOUNDATION R8290 UNSPECIFIED 07-16-2017 [facility]AL [facility] FINDINGS IN INC URINE M069 RHEUMATOID 06-02-2017 [facility]THR[facility] UNSPECIFIED M3210 SYSTEMIC 06-02-2017 [facility] ERYTHEMATOS US ORGAN/SYS INVLV UNS M4000 POSTURAL 06-02-2017 [facility] KYPHOSIS [facility] SITE UNSPECIFIED M549 DORSALGIA 05-29-2017 [place] [facility] IM[facility] ASS R079 CHEST PAIN 05-29-2017 [place] UNSPECIFIED [facility]ICAL IMAGING ASS R091 PLEURISY 05-29-2017 [facility] INC R69 ILLNESS 05-15-2017 [facility] UNSPECIFIED TRANSPORTAT ION SER A13145 UNSPECIFIED 04-30-2017 [facility] ASTIGMATISM [facility]OUNDATION BILATERAL H524 PRESBYOPIA 04-30-2017 [facility] N33346 OTHER LONG 04-30-2017 [facility] TERM SERV CURRENT FOUNDATION DRUG THERAPY Z961 PRESENCE OF 04-30-2017 [facility] INTRAOCULAR [facility]OUNDATION LENS G8929 OTHER 04-29-2017 [facility] CHRONIC SERV PAIN FOUNDATION L853 XEROSIS 04-29-2017 [facility] CUTIS SERV FOUNDATION M545 LOW BACK 04-29-2017 [facility] PA[facility] R52 PAIN 04-29-2017 [facility] UNSPECIFIED SERV FOUNDATION R531 WEAKNESS 04-29-2017 [facility] F[facility] E039 HYPOTHYROID 02-19-2017 [facility] ISM PHYSICIANS UNSPECIFIED LA M129 ARTHROPATHY 02-19-2017 [facility]IANS UNSPECIFIED LA M3214 GLOMERULAR 02-19-2017 [facility] DISEASE IN PHYSICIANS SYS LUPUS LA ERYTHEMATOS US N390 URINARY 10-28-2016 [facility] TRACT SERV INFECTION FOUNDATION SITE NOT SPECIFIED [id number] NONDSPL FX 10-16-2016 [place] 4TH MEDICAL METATARSAL IMAGING ASS RT FT SUBSQT FX RTN [id number] UNS 10-16-2016 [facility] FRACTURE RT PHYSICIANS FOOT GROUP SUBSQT ENC FX ROUTINE HEAL [id number] DISPLACED 09-24-2016 [facility] 3RD TECHNOLOGIE METATARSAL S INC RT FT INIT CLOS FX [id number] NONDSPL FX 09-24-2016 [facility] 3RD [facility] METATARSAL INC RT FT INIT ENC CLOS FX [id number] DISPLACED 09-24-2016 [facility] FX 4TH TECHNOLOGIE METATARSAL S INC RT FT INIT CLOS FX [id number] NONDSPL FX 09-24-2016 [facility] 4TH [facility] METATARSAL INC RT FT INIT ENC CLOS FX [id number] NONDSPL FX 09-04-2016 [place] 3RD MEDICAL METATARSAL IMAGING ASS RT FT SUBSQT FX RTN H99144 PAIN IN 08-26-2016 [place] RIGHT FOOT MEDICAL IMAGING ASS Z1231 ENCOUNTER 08-20-2016 [place] SCREENING MEDICAL MAMMO MALIG IMAGING ASS NEOPLASM BREAST K449 DIAPHRAGMAT 07-17-2016 [facility] IC HERNIA RADIOLOGY W/O OBSTRUCTION OR GANGRENE R197 DIARRHEA 07-17-2016 [facility] UNSPECIFIED N EMERGENCY PHYS M359 SYSTEMIC 04-30-2016 [facility] INVOLVEMENT SERV CONNECTIVE FOUNDATION TISSUE UNS Z5181 ENCOUNTER 04-30-2016 [facility] FOR SERV THERAPEUTIC FOUNDATION DRUG LEVEL MONITORING B351 TINEA 04-16-2016 [facility] UNGUIUM H89410 PAIN IN 04-16-2016 [facility] LEFT FOOT H109 UNSPECIFIED 04-03-2016 [facility] CONJUNCTIVI INTERNAL TIS MEDI L930 DISCOID 02-21-2016 [facility] L[facility] PHYSICIANS ERYTHEMATOS LA US J069 ACUTE UPPER 01-24-2016 [facility] RESPIRATORY INTERNAL INFECTION MEDI UNSPECIFIED A499 BACTERIAL 01-18-2016 [facility] INFECTION SERV UNSPECIFIED FOUNDATION K219 GASTRO-ESOP 12-20-2015 COMMUNITY H REFLUX ANESTH OF DISEASE THE BLUE WITHOUT ESOPHAGITIS M2570 OSTEOPHYTE 12-07-2015 [place] Y[facility]Y UNSPECIFIED JOINT R799 ABNORMAL 11-27-2015 [facility] FINDING OF [facility] BLOOD INC CHEMISTRY UNSPECIFIED R0609 OTHER FORMS 11-21-2015 [facility] OF DYSPNEA [place] INTERNAL MED K210 GASTRO-ESOP 10-31-2015 [facility] HAGEAL SERV REFLUX FOUNDATION DISEASE W/ ESOPHAGITIS R1310 DYSPHAGIA 10-11-2015 [facility] UNSPECIFIED ANESTH OF THE BLUE E860 DEHYDRATION 10-02-2015 [facility] R112 NAUSEA WITH 10-02-2015 [facility] V[facility]IT[facility]ICIANS, UNSPECIFIED PLLC K589 IRRITABLE 09-18-2015 [facility] B[facility]EL [facility]YSICIANS SYNDROME GROUP WITHOUT DIARRHEA M8580 OTH SPEC 08-30-2015 [facility] D/O BONE PHYSICIANS DENSITY LA STRUCTURE UNS SITE Z23 ENCOUNTER 08-29-2015 [facility] FOR VALLEY IMMUNIZATIO INTERNAL N MED R109 UNSPECIFIED 08-24-2015 [place] ABDOMINAL MEDICAL PAIN IMAGING ASS R9431 ABNORMAL 08-16-2015 [facility] P N959 UNSPECIFIED 08-15-2015 [facility] INC PERIMENOPAU SYDNI DISORDER W85388 ENCOUNTER 08-15-2015 [place] FOR MEDICAL SCREENING IMAGING ASS FOR OSTEOPOROSI S Z780 ASYMPTOMATI 08-15-2015 [place] C MEDICAL MENOPAUSAL IMAGING ASS STATE Z803 FAMILY 08-15-2015 [place] HISTORY OF MEDICAL MALIGNANT IMAGING ASS NEOPLASM OF BREAST 3829 UNSPECIFIED 08-07-2015 [facility] OTITIS [facility] MEDIA INTERNAL MEDI 31840 ESOPHAGEAL 08-07-2015 [facility] REFLUX VALLEY INTERNAL MEDI 5853 CHRONIC 07-28-2015 [facility] DISEASE INC STAGE III (MODERATE) 5990 URINARY 07-28-2015 [facility] TRA[facility] INFECTION INC SITE NOT SPECIFIED 77215 07-28-2015 [facility] ION SER 5641 IRRITABLE 07-25-2015 [facility] SYNDROME AGENCY 56168 UNS PROLAPS 07-25-2015 [facility] W/O MENTION AGENCY UTERN PROLAPS 90058 UNSPECIFIED 07-25-2015 [facility] ARTHROPATHY AGENCY SITE UNSPECIFIED 7242 LUMBAGO 07-25-2015 [facility] INTERNAL MEDI 49275 FULL 07-25-2015 [facility] INCONTINENC HEALTH E OF FECES AGENCY 95935 UNSPECIFIED 07-25-2015 [facility] URINARY HEALTH INCONTINENC AGENCY E V7610 UNSPECIFIED 07-25-2015 [facility] [place] SCREENING INTERNAL MEDI V8281 SPECIAL 07-25-2015 [facility] SCREENING VALLEY FOR INTERNAL OSTEOPOROSI MEDI S 7100 SYSTEMIC 07-11-2015 [facility] LUPUS HE[facility] [place] [address] OSTEOARTHRO 07-11-2015 [facility] S UNSPEC HEALTH DEPT WHETHER THERAPY MANAGER GEN/LOC UNSPEC SITE 2449 UNSPECIFIED 05-31-2015 [facility] HYPOTHYROID [place]M 31062 OTHER 04-25-2015 [facility] CHRONIC SERV PAIN FOUNDATION 82295 UNSPECIFIED 04-19-2015 [facility] P [place] 7802 SYNCOPE AND 04-19-2015 [facility] [place] [facility] [place] [address] NAUSEA 04-19-2015 [facility] [facility] [place] [place] [address] DIAB W/O 03-30-2015 [facility] COMP TYPE STATES II/UNS NOT MEDICAL STATED SUPPLY UNCNTRL 7140 RHEUMATOID 03-01-2015 [place] [address] UNSPECIFIED 02-22-2015 [facility] ARTHROPATHY INTERNAL MULTIPLE MED SITES 50113 KYPHOSIS 02-06-2015 [facility] [employer] POSTURAL 00523 HTN CKD UNS 01-09-2015 [facility] W/CKD SERV STAGE I FOUNDATION THRU STAGE IV/UNS 5829 CHRONIC GLN 01-09-2015 [facility] W/UNSPEC SERV PATHOLOGICA FOUNDATION L LESION KIDNEY 4659 ACUTE URIS 11-29-2014 [place] [facility] OF SERV UNSPECIFIED FOUNDATION SITE 1101 DERMATOPHYT 10-12-2014 [facility] OSIS OF NAIL 7038 OTHER 10-12-2014 [facility] FED SPECIFIED DISEASE OF NAIL 7295 PAIN IN 10-12-2014 [facility] SOFT TISSUES OF LIMB 27783 OBSTRUCTIVE 09-16-2014 [facility] APNEA MEDICAL EQUIPME 48911 OTHER 09-16-2014 [facility] DYSPNEA AND HOME MEDICAL RESPIRATORY EQUIPME ABNORMALITI ES 4011 ESSENTIAL 08-15-2014 [facility] HYPERTENSIO SERV N, BENIGN FOUNDATION 7910 PROTEINURIA 08-15-2014 [place] [facility] FOUNDATION 7919 OTHER 08-15-2014 [facility] NONSPECIFIC [facility] FINDING INC EXAMINATION OF URINE 65410 DYSPHAGIA 08-11-2014 [facility] UNSPECIFIED MEM HOSP INC 19851 AFTER-CATAR 07-28-2014 [facility] VISION 39217 NEPHRITIS&N 05-31-2014 [facility] EPHROPATHY- SERV OTH SPEC FOUNDATIO PATH LES DZ CE 7813 LACK OF 03-25-2014 [facility] COORDINATIO HOME N MEDICAL EQUIPME 64023 ANEMIA OF 01-20-2014 [facility] OTHER SERV CHRONIC FOUNDATIO DISEASE 2724 OTHER AND 12-07-2013 [facility] UNSPECIFIED VALLEY INTERNAL HYPERLIPIDE MED BRIDGETTE 3814 NONSUPPRATV 12-07-2013 [facility] OTITIS [facility] MEDIA NOT INTERNAL SPEC MED ACUT/CHRON 4019 UNSPECIFIED 12-07-2013 [facility] ESSENTIAL [facility] HYPERTENSIO INTERNAL N MED 4720 CHRONIC 12-07-2013 [facility] RHINITIS [facility] INTERNAL MED 7851 PALPITATION 10-20-2013 [facility], S CHILD AND YOUTH PROGRAM ASSIST[place] 85452 HYPERPARATH 10-13-2013 [facility], YROIDISM CHILD AND YOUTH PROGRAM ASSISTANT UNSPECIFIED [facility]OS 2689 UNSPECIFIED 10-13-2013 [facility], VITAMIN D CHILD AND YOUTH PROGRAM ASSISTANT DEFICIENCY [place] 56016 ANEMIA IN 10-13-2013 [facility], CHRONIC CHILD AND YOUTH PROGRAM ASSISTANT KIDNEY [facility] CO DISEASE HOS 3384 CHRONIC 09-27-2013 [facility] PAIN SERV SYNDROME FOUNDATIO 7226 DEGENERATIO 09-27-2013 [place] [facility] N SERV INTERVERTEB FOUNDATIO RAL DISC SITE UNSPEC 92979 OTHER 06-30-2013 [facility], ABNORMAL CHILD AND YOUTH PROGRAM ASSISTANT FINDING [facility] L EXAM BREAST 56860 LUMP OR 06-25-2013 [place] [facility] IN RADIOLOGY BREAST ASSOCIAT 1103 DERMATOPHYT 06-07-2013 [facility] OSIS OF [place] GROIN AND INTERNAL PERIANAL MED AREA 4555 EXTERNAL 05-05-2013 [facility] JR HEMORRHOIDS SAMIRA WITH OTHER COMPLICATIO N 2722 MIXED 05-04-2013 CRISTIAN CORNEJO HYPERLIPIDE BRIDGETTE CONSULTING SERV 44634 CORONARY 05-04-2013 CRISTIAN HAYNES MD OSIS [place] CONSULTING CORONARY SERV ARTERY V7281 PRE-OPERATI 05-04-2013 CRISTIAN BARAJAS MD CARDIOVASCU CONSULTING LAR SERV EXAMINATION 73340 DYSFNCT 04-23-2013 [facility] W[facility] STGES/AROUS AL FRM SLEEP 00927 HYPOXEMIA 04-23-2013 [facility] V8533 BODY MASS 04-23-2013 [facility] [id number] HOSPITAL ADULT 5859 CHRONIC 04-19-2013 [facility], KIDNEY CHILD AND YOUTH PROGRAM ASSISTANT DISEASE [facility] CO UNSPECIFIED HOS 86474 UNSPECIFIED 04-16-2013 [facility] OSTEOPOROSI S 30518 CHEST PAIN 04-16-2013 [facility] UNSPECIFIED [facility]OLOGY CLINIC 4160 PRIMARY 04-14-2013 [facility] HYPERTENSIO HOSPITAL N 22769 PRECORDIAL 04-14-2013 [facility] 81105 OTHER 04-14-2013 [facility] [place] NONSPECIFIC RADIOLOGY ABNORMAL FINDING OF LUNG FIELD 94069 SHORTNESS 03-24-2013 [facility] 7823 EDEMA 03-09-2013 CRISTIAN CORNEJO [place]V 50094 OTHER CHEST 03-01-2013 [facility] PAIN [place] INTERNAL MED 79756 OBESITY, 02-27-2013 [facility] UNSPECIFIED EMERGENCY SERVICES 34527 HTN [facility] 02-26-2013 [facility] DZ STAGE I-IV/UNS 4556 UNSPEC 02-26-2013 [place] [facility] ANESTHESIA WITHOUT GROUP PS MENTION COMPLICATIO N 4558 UNSPECIFIED 02-26-2013 [facility] WITH OTHER COMPLICATIO N V641 SURG/OTH 02-26-2013 [facility] NOT [facility] BECAUSE CONTRAINDIC ATION 4550 INTERNAL 02-10-2013 KINJALTOYIN JR HEMORRHOIDS SAMIRA WITHOUT MENTION COMP 485 BRONCHOPNEU 01-19-2013 [facility] [place] ORGANISM INTERNAL UNSPECIFIED MED 68761 OTHER 01-19-2013 [facility] [place] FATIGUE INTERNAL MED 4293 CARDIOMEGAL 01-18-2013 [facility] Y RADIOLOGY ASSOCIAT 19758 OTHER 01-18-2013 [facility] DISEASES OF RADIOLOGY LUNG NOT ASSOCIAT ELSEWHERE CLASSIFIED 6100 SOLITARY 01-13-2013 [facility], CYST OF CHILD AND YOUTH PROGRAM ASSISTANT [place] 63895 UNSPECIFIED 01-06-2013 [facility], ABNORMAL CHILD AND YOUTH PROGRAM ASSISTANT [place]AMMOGRAM [place] 83501 DYSPHAGIA 12-09-2012 [facility], DUE TO CHILD AND YOUTH PROGRAM ASSISTANT CEREBROVASC [facility] CO ULAR HOS DISEASE 5533 DIAPHRAGMAT 12-09-2012 [facility], EDUARD W/O CHILD AND YOUTH PROGRAM ASSISTANT MENTION [facility] CO OBSTRUCTION HOS /GANGREN 94221 OTHER 12-08-2012 [facility] SPECIFIED RADIOLOGY DISORDERS ASSOCIAT OF BREAST V1589 OTH SPEC 12-08-2012 [facility], PERS HX CHILD AND YOUTH PROGRAM ASSISTANT PRESENTING [facility] CO HAZARDS HOS HEALTH OTH V163 FAMILY 12-08-2012 [facility], HISTORY OF CHILD AND YOUTH PROGRAM ASSISTANT MALIGNANT [facility] CO NEOPLASM OF HOS BREAST V7611 SCREENING 12-08-2012 [facility], MAMMOGRAM CHILD AND YOUTH PROGRAM ASSISTANT FOR [facility] CO HIGH-RISK HOS PATIENT V7612 OTHER 12-08-2012 [facility] SCREENING RADIOLOGY MAMMOGRAM ASSOCIAT 7213 LUMBOSACRAL 12-01-2012 [facility] SPONDYLOSIS WITHOUT MYELOPATHY 36289 DISPLCMT 12-01-2012 [facility] LUMBAR SERV INTERVERT FOUNDATIO DISC W/O MYELOPATHY 72626 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 [facility] OSACRAL INTERVERTEB RAL DISC 46307 OTHER&UNSPE 12-01-2012 [facility] [place] DISORDER OF LUMBAR REGION 02516 DIVERTICULO 11-17-2012 [facility] SIS OF MEM HOSP COLON INC 95836 OTHER 11-17-2012 [facility] SYMPTOMS ANESTH OF INVOLVING THE BLUE DIGESTIVE SYSTEM OTHER V160 FM HX 11-17-2012 [facility] MALIGNANT [facility]OS[facility] NEOPLASM INC GASTROINTES TINAL TRACT V7651 SPECIAL 11-17-2012 [facility] SCREENING MEM HOS[facility] FOR INC MALIGNANT NEOPLASMS COLON 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 [facility] THESIS 10510 NEPHROTIC 11-05-2012 [facility] SYND W/OTH SERV PATHAL LES FOUNDATIO DZ CLASS ELSW 12716 MUSCLE 11-05-2012 [facility] WEAKNESS SERV (GENERALIZE FOUNDATIO D) 4553 EXTERNAL 10-19-2012 [facility] JR HEMORRHOIDS SAMIRA WITHOUT MENTION COMP 7856 ENLARGEMENT 10-05-2012[place] OF LY[facility]H RADIOLOGY NODES ASSOCIAT 7866 SWELLING, 10-05-2012 [facility], MASS, OR CHILD AND YOUTH PROGRAM ASSISTANT [place] IN [facility] CHEST HOS V4576 ACQUIRED 10-05-2012 [facility], ABSENCE OF CHILD AND YOUTH PROGRAM ASSISTANT ORGAN, LUNG [facility] HOS V4589 OTHER 09-25-2012 [facility], POSTSURGICA CHILD AND YOUTH PROGRAM ASSISTANT L STATUS [facility] OTHER HOS V571 OTHER 09-24-2012 [facility], PHYSICAL CHILD AND YOUTH PROGRAM ASSISTANT THERAPY [facility] HOS 4421 ANEURYSM OF 09-21-2012 [facility] ARTERY 87882 OSTEOARTHRO 09-03-2012 [facility] S UNSPEC SERV WHETHER FOUNDATIO GEN/LOC SHLDR REGION 70062 OSTEOARTHRO 09-03-2012 [facility] SIS UNSPEC SERV WHETHER FOUNDATIO GEN/LOC LOWER LEG 14003 EFFUSION OF 09-03-2012 [facility] LOWER LEG SERV JOINT FOUNDATIO 27635 PAIN IN 09-03-2012 [facility] JOINT, SERV SHOULDER FOUNDATIO REGION 53562 PAIN IN 09-03-2012 [facility] JOINT, SERV LOWER LEG FOUNDATIO 7249 OTHER 09-03-2012 [facility] UNSPECIFIED SERV BACK FOUNDATIO DISORDER 55140 EXOSTOSIS 09-03-2012 [facility] OF SERV UNSPECIFIED FOUNDATIO SITE 7384 ACQUIRED 09-03-2012 [facility] SPONDYLOLIS SERV THESIS FOUNDATIO 84681 DEHYDRATION 08-04-2012 [facility], CHILD AND YOUTH PROGRAM ASSISTANT [facility] 5589 OTH&UNSPEC 08-04-2012 [facility], NONINFECTIO CHILD AND YOUTH PROGRAM ASSISTANT US [facility] GASTROENTER HOS ITIS&COLITI S 78557 VOMITING 08-04-2012 [facility], ALONE CHILD AND YOUTH PROGRAM ASSISTANT [facility] 4580 ORTHOSTATIC 06-19-2012 [facility] HOSPITAL HYPOTENSION 5849 ACUTE 06-19-2012 [facility] K[facility]NEY [facility]OSPITAL FAILURE UNSPECIFIED 2720 PURE 06-05-2012 [facility], HYPERCHOLES CHILD AND YOUTH PROGRAM ASSISTANT TEROLEMIA [facility] HOS 586 UNSPECIFIED 04-14-2012 CRISTIAN CORNEJO RENAL [place] 20442 OTH & UNS E 04-08-2012 [facility], COLI CHILD AND YOUTH PROGRAM ASSISTANT INFECTION [facility] CLASS ELSW HOS UNS SITE 2762 ACIDOSIS 04-08-2012 [facility], CHILD AND YOUTH PROGRAM ASSISTANT [facility] HOS 2767 HYPERPOTASS 04-08-2012 [facility], EMIA CHILD AND YOUTH PROGRAM ASSISTANT [facility] HOS 4589 UNSPECIFIED 04-07-2012 [facility] HOSPITAL HYPOTENSION 7862 COUGH 04-07-2012 [facility] RADIOLOG[facility] ASSOCIAT 28719 ANEURYSM OF 03-23-2012 [facility] OTHER SERV VISCERAL FOUNDATIO ARTERY 62103 UNSPECIFIED 02-13-2012 [facility] OTALGIA FAMILY MEDICINE P 6256 FEMALE 02-12-2012 [place] E [address] URGE 02-12-2012 [facility] [place] [address] URINARY 02-12-2012 [place] [address] URGENCY OF 02-12-2012 [facility] NURSE URINATION PRACTITIONE R GR 7336 TIETZES 07-10-2011 [facility] [place] [facility] DISEASE CHILD AND YOUTH PROGRAM ASSISTANT [facility] HOS [address] UNSPECIFIED 01-03-2011 [facility] PYELONEPHRI TIS 6826 CELLULITIS 01-03-2011 [facility] FAMILY OF [facility] MEDICINE P EXCEPT FOOT 6954 LUPUS 01-03-2011 [facility] ERYTHEMAT[facility] SERV US FOUNDATIO 44316 SWELLING OF 01-03-2011 [facility] 7931 NONSPEC 01-03-2011 [facility] SERV OTH EXAM [facility]ATIO BODY STRUCT LUNG FIELD 46212 CRAMP OF 11-06-2010 [facility] 54218 DIARRHEA 11-06-2010 [facility] HOSPITAL V5865 LONG-TERM 11-06-2010 [facility] USE OF HOSPITAL STEROIDS V5869 LONG-TERM 11-06-2010 [facility] (CURRENT) HOSPITAL USE OF OTHER MEDICATIONS V5883 ENCOUNTER 11-06-2010 [facility] FOR HOSPITAL THERAPEUTIC DRUG MONITORING 59139 NAUSEA WITH 10-02-2010 [facility] V7260 LABORATORY 10-02-2010 [facility] UNSPECIFIED 4619 ACUTE 09-27-2010 [facility] SINUSITIS, FAMILY UNSPECIFIED MEDICINE P 46248 NUCLEAR 09-05-2010 [facility]EROS[facility] 3669 UNSPECIFIED 09-04-2010 [facility] 7850 UNSPECIFIED 08-29-2010 [facility] TACHYCARDIA Medications Na ND Rx Da Fi [...] AT 60 15 15 FA E 1 WA SA 20 LY RA 0 H MG [...] /PAD/UNDG AGENCY AGENCY RMNT INCONT EA RENAL 84448 [facility] FUNCTION 7 [facility] PANEL [facility] INC URNLS DIP 38946 [facility] STICK/TAB INC INC LET REAGENT AUTO MICROSCOP Y PROTEIN 58756 [facility] XCPT 7 [facility] REFRACTOM INC INC ETRY SERUM PLASMA/WH L BLD BLOOD 40794 [facility] COUNT 7 [facility] COMPLETE INC INC AUTO&AUTO DIFRNTL WBC CULTURE 56347 KR[facility]SY KRISSY BACTERIAL 7 [facility] INC INC QUANTTATI VE COLONY COUNT URINE COLLECTIO 63989 [facility] REY N VENOUS 7 [facility] BLOOD INC INC VENIPUNCT URE CREATININ 07856 KRISSY REY E OTHER 7 [facility] SOURCE INC INC PWR E2382 HOVEROUND HOVEROUND TUBE 7 PNEUMATIC CORPORATI CORPORATI DRIVE ON ON WHEEL TIRE REPL EACH PWR E2381 HOVEROUND HOVEROUND PNEUMATIC 7 DRIVE CORPORATI CORPORATI WHEEL ON ON TIRE REPL ONLY EACH RADIOLOGI 86804 [place] MCKEON C EXAM 7 MEDICAL CHEST 2 IMAGING VIEWS ASS FRONTAL&L ATERAL NONEMERGE A0130 FEDERATED FEDERATED NCY 7 TRANS TRANSPORT TRANSPORT SERVBLUEG ATION: ATION SER NATA Carrasquillo VAN DISPBL T4535 [facility] 7 HOME HOME ELD/GUARD HEALTH HEALTH /PAD/UNDG AGENCY AGENCY RMNT INCONT EA NONEMERGE A0130 FEDERATED FEDERATED NCY 7 TRANS TRANSPORT TRANSPORT SERVBLUEG ATION: ATION SER NATA Carrasquillo VAN VISUAL 06680 [place] ARIANE FIELD XM 7 MEDICAL JR UNI/BI SERV W/INTERP FOUNDATIO EXTENDED N EXAM NONEMERGE A0130 FEDERATED FEDERATED NCY 7 TRANS TRANSPORT TRANSPORT SERVBLUEG ATION: ATION SER NATA Carrasquillo VAN COMPUTERI 50800 [place] ARIANE ZED 7 MEDICAL JR OPHTHALMI SERV C IMAGING FOUNDATIO RETINA N NONEMERGE A0130 FEDERATED FEDERATED NCY 7 TRANS TRANSPORT TRANSPORT SERVBLUEG ATION: ATION SER NATA Carrasquillo VAN DISPBL T4535 [facility] 7 HOME HOME ELD/GUARD HEALTH HEALTH /PAD/UNDG [place] [address] COMBINED COMBINED TRIIODOTH 7 PHYSICIAN PHYSICIAN YRONINE S LA S LA T3 TOTAL TT3 LIPID 90152 COMBINED COMBINED PANEL 7 PHYSICIAN PHYSICIAN S LA S LA BLOOD 91527 COMBINED COMBINED COUNT 7 PHYSICIAN PHYSICIAN COMPLETE S LA S LA AUTO&[place] [address] COMBINED COMBINED FREE 7 PHYSICIAN PHYSIC[place] [address] COMBINED COMBINED THYROID 7 PHYSICIAN PHYSICIAN STIMULATI S LA S LA NG HORMONE TSH COMPREHEN 71666 COMBINED COMBINED SIVE 7 PHYSICIAN PHYSICIAN METABOLIC S LA S LA PANEL PWR WC E2366 HOVEROUND HOVEROUND ACSS 7 BATTRY CORPORATI CORPORATI CHRGR 1 ON ON MODE W/ONLY 1 BATTRY COMPREHEN 14138 [place] SIVE 7 HEALTHCAR HEALTHCAR METABOLIC E E PANEL [facility] DXA BONE 56835 [place] GUILLEN DENSITY 7 MEDICAL STUDY 1/> SERV SITES FOUNDATIO AXIAL N SKEL CREATININ 09366 [place] E OTHER 7 [facility]CAR [facility]CAR SOURCE [facility] C-REACTIV 69032 [place] E PROTEIN 7 HEALTHCAR HEALTHCAR E E [facility] COLLECTIO 92466 [place] N VENOUS 7 HEALTHCAR HEALTHCAR BLOOD E E VENIPUNCT [facility] URE SEDIMENTA 15111 [place] TION RATE 7 HEALTHCAR HEALTHCAR RBC E E AUTOMATED [facility] FLUORESCE 97868 [place] NT 7 HEALTHCAR HEALTHCAR NONNFCT E E AGT ANTB [facility] SCREEN EA ANTIBODY COMPLEMEN 36764 [place] T ANTIGEN 7 HEALTHCAR HEALTHCAR EACH E E COMPONENT [facility] BLOOD 71078 [place] COUNT 7 HEALTHCAR HEALTHCAR COMPLETE E E AUTO&AUTO [facility] DIFRNTL WBC NONEMERGE A0130 FEDERATED FEDERATED NCY 7 TRANS TRANSPORT TRANSPORT SERVBLUEG ATION: ATION SER NATA STEINERNLS DIP 59852 [place] 7 HEALTHCAR HEALTHCAR STICK/TAB E E LET [facility] REAGENT AUTO MICROSCOP Y PROTEIN 06088 [facility] TOTAL 7 HEALTHCAR HEALTHCAR XCPT E E [facility] ETRY URINE DISPBL T4535 [facility] 7 HOME HOME ELD/GUARD HEALTH HEALTH /PAD/UNDG AGENCY AGENCY RMNT INCONT EA NONEMERGE A0130 FEDERATED FEDERATED NCY 6 TRANS TRANSPORT TRANSPORT SERVBLUEG ATION: ATION SER NATA WHEELCLAUDINE R VAN RENAL 17321 KRISSY REY FUNCTION 6 [facility] PANEL INC INC RADEX 88314 EILEEN MCKEON FOOT 6 MEDICAL COMPLETE IMAGING MINIMUM 3 ASS VIEWS URNLS DIP 72140 KRISSY REY 6 [facility] STICK/TAB INC INC LET REAGENT AUTO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 ANDREY CO HOS CO HOS CONTINUOU E0601 RICHARDSON BAI S 3 HOME HOME POSITIVE MEDICAL MEDICAL AIRWAY EQUIPME EQUIPME PRESSURE DEVICE POLYSOM 71780 CHRISTOPHER WHITE 6/>YRS 3 [facility] W/CPAP 4/> ADDL IKER ATTND BASIC 96188 [facility], [facility], METABOLIC 3 CHILD AND YOUTH PROGRAM ASSISTANT CHILD AND YOUTH PROGRAM ASSISTANT PANEL ANDREY ANDREY CALCIUM CO HOS CO HOS TOTAL INJECTION J[address] L[facility] HCL INTRAVENO US INFUS 10 MG CLOSURE C1760 [facility] DEVICE [address] [place] [address] VASCULAR INTRDUCR/ C1894 [facility] SHEATH [address] [place] [address] NOT GUID INTRACARD EP NON-LASR CATH PLMT 33012 [facility] L HRT & [address] [place] [address] ARTS W/NJX & ANGIO IMG S&I INJECTION J3010 [facility] FENTANYL [address] [place] [address] CITRATE 0.1 MG RADIOLOGI 28783 CNTR[place] SCALF IRIS C EXAM 3 RADIOLOGY CHEST 2 VIEWS FRONTAL&L ATERAL BLOOD 84534 [facility] J[facility] COUNT 3 [facility] AUTOMATED BASIC 08553 [facility] METABOLIC [address] [place] [address] CALCIUM TOTAL COLLECTIO 12175 CHRISTOPHER WHITE N VENOUS 3 [facility] VENIPUNCT URE HOS BED E0260 RICHARDSON BAI [...] MEDICAL AIRWAY EQUIPME EQUIPME PRESSURE DEVICE PULMONARY 82697 CHRISTOPHER JAINON 3 [facility] IMAGING PARTICULA TE TECHNETIU A9540 CHRISTOPHER WHITE M TC-99M 3 [facility] STDY DOSE UP TO 10 MCI TECHNETIU A9539 CHRISTOPHER WHITE M TC-99M 3 [facility] DX UP TO 25 MCI ECG 51863 CRISTIAN CORNEJO CORNEJO CRISTIAN ROUTINE 3 ECG CONSULTIN W/LEAST G SRV 12 LDS W/I&R POLYSOM 11103 CRISTIAN CORNEJO CORNEJO CRISTIAN 6/>YRS 3 SLEEP 4/> CONSULTIN ADDL G SRV IKER ATTND POLYSOM 55003 CHRISTOPHER JAINON 6/>YRS 3 [facility] SLEEP 4/> HOSPITAL HOSPITAL ADDL IKER ATTND ECHO 68032 CRISTIAN CORNEJO CORNEJO CRISTIAN TTHRC R-T 3 2D CONSULTIN W/WOM-MOD G SRV E COMPL SPEC&COLR D DUP-SCAN 97054 CRISTIAN CORNEJO CORNEJO CRISTIAN XTR VEINS 3 COMPLETE CONSULTIN G SRV BILATERAL STUDY CV STRS 43262 [facility] TST 3 PHYSICIAN XERS&/OR S GROUP RX CONT ECG W/O I&R TECHNETIU A9500 KRISSY KRISSY Robetrson TC-99M 3 [facility] HOSP SESTAMIBI INC INC DX PER STUDY DOSE CV STRS 88808 KRISSYELVI CORBIN TST 3 [facility] XERS&/OR HOSPITAL RX CONT P ECG I&R ONLY MYOCARDIA 48701 EILEEN Bran SPECT 3 MEDICAL ANTWAN SINGLE IMAGING STUDY AT ASS REST OR STRESS INJECTION J2785 KRISSY REY 3 [facility] HOSP REGADENOS INC INC ON 0.1 MG CV STRS 84508 KRISSY REY TST 3 [facility] HOSP XERS&/OR INC INC RX CONT ECG TRCG ONLY MYOCARDIA 24537 KRISSY KRISSY Shant SPECT 3 [facility] HOSP MULTIPLE INC INC STUDIES LIPID 16840 SUSYON SUSYON PANEL 3 [facility] BLOOD 32244 JULIO CESARBETZAIDA HARRELLJAVONON COUNT 3 [facility] [place] [address] [facility] HOSPITALELVI [facility] HOSPITALELVI TROPONIN 3 [facility] KETAN PWR WC K0823 HOVEROUND HOVEROUND GRP 2 STD 3 CAPTAINS CORPORATI CORPORATI CHAIR PT ON ON TO &=300 LBS BASIC 10629 SUSYON JULIO CESARJAVONON METABOLIC 3 [facility] CALCIUM TOTAL ECG 87001 SUSYELVI SUSYON ROUTINE 3 [facility] W/LEAST 12 LDS TRCG ONLY W/O I&R HOS BED E0260 RICHARDSON BAI SEMI-ELEC 3 HOME HOME W/ANY MEDICAL MEDICAL TYPE SIDE EQUIPME EQUIPME RAIL W/MATTRSS COLLECTIO 38098 JULIO CESARBETZAIDA WHITE N VENOUS 3 [facility] VENIPUNCT URE OBSERVATI 34562 NAVID MATOS ON CARE 3 EMERGENCY KAMILA DISCHARGE SERVICES MANAGEMEN T ECG 47223 NAVID MATOS ROUTINE 3 EMERGENCY KAMILA ECG SERVICES W/LEAST 12 LDS I&R ONLY INJECTION J[address] [facility] SODIUM 500 MG INJECTION J2250 [address] [facility] HCL PER 1 MG NONINVASI 88958 [facility] VE [address] [place] [address] [facility] HOSPITAL OXIMETRY SINGLE DETER INJECTION J24[address] ONDANSETR [facility] HOSPITAL ON HCL PER 1 MG INJECTION J3010 [facility] FENTANYL [address] [place] [address] CITRATE [facility] HOSPITAL 0.1 MG INJECTION J1885 [address] [facility] TROMETHAM INE PER 15 MG INJECTION J2710 [address] NEOSTIGMI [facility] HOSPITAL NE METHYLSUL FATE UP TO 0.5 MG COLLECTIO 33839 [facility] N VENOUS [address] [place] [address] BLOOD [facility] HOSPITAL VENIPUNCT URE CREATINE 97465 [facility] KINASE MB 3 [facility] ONLY HOSPITAL G0378 [facility] OBSERVATI [address] [place] [address] [place] [address] [facility] FREE [address] [place] [address] HOSPITAL ANOSCOPY 81159 CELIA YANG JR DX 3 SAMIRA SAMIRA W/COLLJ SPEC BR/[place] [address] [facility] THYROID [address] [place] [address] [facility] NG HORMONE TSH ECG 10364 [facility] ROUTINE 3 [facility] ECG HOSPITAL HOSPITAL W/LEAST 12 LDS TRCG ONLY W/O I&R HEMORRHOI 88582 [facility] DECTOMY [address] [place] [address] INTERNAL [facility] HOSPITAL RUBBER BAND LIGATIONS INJECTION J[address] DEXAMETHO [facility] HOSPITAL SONE SODIUM PHOSPHATE 1 MG INJECTION J[address] [facility] HCL INTRAVENO US INFUS 10 MG ANESTHESI 60810 EILEEN Cruz 3 ANESTHESI CAM [place] [address] CHRISTOPHER WHITE TROPONIN 3 [facility] KETAN INITIAL 47910 NAVID HERNANDEZ OBSERVATI 3 EMERGENCY PEDRITO IGN ON SERVICES CARE/DAY 70 MINUTES ECG 62240 CRITSIAN CORNEJO CORNEJO CRISTIAN ROUTINE 3 MD ECG CONSULTIN W/LEAST G SRV 12 LDS I&R ONLY BLOOD 63867 [facility] RUN [facility] COUNT [address] [place] [address] N BASIC 48508 JULIO [facility] WHITE METABOLIC [address] [place] [address] CALCIUM TOTAL ECG 62082 [address] [facility] ROUTINE [address] [place] [address] W/LEAST 12 LDS TRCG ONLY W/O I&R BLOOD 73047 [facility] COUNT [address] [place] [address] T COLLECTIO 68090 CHRISTOPHER WHITE N VENOUS 3 [facility] VENIPUNCT URE DISPBL T4535 [facility]/KATHIE [...] MEDICAL MEDICAL TYPE SIDE EQUIPME EQUIPME RAIL W/[facility] [address] DAY INTERNAL MANAGEMEN MED T 30 MIN/< SBSQ [address] CARE/DAY INTERNAL 25 MED MINUTES SBSQ [address] CARE/DAY INTERNAL 25 MED MINUTES INITIAL [address] CARE/DAY INTERNAL 50 MED MINUTES RADIOLOGI 89310 [facility] EX[facility] 3 LILIBETH CHEST 2 RADIOLOGY VIEWS ASSOCIAT FRONTAL&L ATERAL MAMMOGRAP 33957 [facility], [facility], HY 3 CHILD AND YOUTH PROGRAM ASSISTANT CHILD AND YOUTH PROGRAM ASSISTANT UNILATERA ANDREY HANSENS L CO HOS CO HOS US BREAST 49772 [facility], [facility], REAL 3 CHILD AND YOUTH PROGRAM ASSISTANT CHILD AND YOUTH PROGRAM ASSISTANT TIME ANDREY ANDREY W/IMAGE CO HOS CO HOS DOCUMENTA TION MAMMOGRAP 48515 [facility], [facility], HY 3 CHILD AND YOUTH PROGRAM ASSISTANT CHILD AND YOUTH PROGRAM ASSISTANT BILATERAL ANDREY ANDREY CO HOS CO HOS PWR WC K0823 [facility] HOVEROUND GRP 2 STD 3 CAPTAINS CORPORATI CORPORATI CHAIR PT ON ON TO &=300 LBS HOS BED E0260 RICHARDSON BAI SEMI-ELEC 3 HOME HOME W/ANY MEDICAL MEDICAL TYPE SIDE EQUIPME EQUIPME RAIL W/MATTRSS CULTURE 54311 [facility], [facility], BCT 3 CHILD AND YOUTH PROGRAM ASSISTANT CHILD AND YOUTH PROGRAM ASSISTANT ISOL&PRSM ANDREY BALDERAS PTV ID CO HOS CO HOS ISOLATE EA URINE CULTURE 07455 [facility], [facility], BACTERIAL 3 CHILD AND YOUTH PROGRAM ASSISTANT CHILD AND YOUTH PROGRAM ASSISTANT ANDREY HANSENS QUANTTATI CO HOS CO HOS VE COLONY COUNT URINE 25 42382 [facility], [facility], HYDROXY 3 CHILD AND YOUTH PROGRAM ASSISTANT CHILD AND YOUTH PROGRAM ASSISTANT INCLUDES ANDREY ANDREY FRACTIONS CO HOS CO HOS IF PERFORMED SUSCEPTBI 09249 [facility] [email or web address], [facility], LTY STDY 3 CHILD AND YOUTH PROGRAM ASSISTANT CHILD AND YOUTH PROGRAM ASSISTANT ANTIMICRB ANDREY BALDERAS IAL AGNT CO HOS CO HOS AGAR DILUTJ CREATININ 66844 [facility], [facility], E OTHER 3 CHILD AND YOUTH PROGRAM ASSISTANT CHILD AND YOUTH PROGRAM ASSISTANT SOURCE [place]RE[place] [address] [facility], [facility], PARATHORM 3 CHILD AND YOUTH PROGRAM ASSISTANT CHILD AND YOUTH PROGRAM ASSISTANT ONE ANDREY ANDREY CO HOS CO HOS URNLS DIP 19758 [facility], [facility], 3 CHILD AND YOUTH PROGRAM ASSISTANT CHILD AND YOUTH PROGRAM ASSISTANT STICK/TAB ANDREY HANSENS LET CO HOS CO HOS 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 MICROSCOP Y RENAL 51536 [facility] [email or web address], [facility], FUNCTION 3 CHILD AND YOUTH PROGRAM ASSISTANT CHILD AND YOUTH PROGRAM ASSISTANT PANEL ANDREY ANDREY CO HOS CO HOS BLOOD 67524 [facility], [employer], COUNT 3 CHILD AND YOUTH PROGRAM ASSISTANT CHILD AND YOUTH PROGRAM ASSISTANT COMPLETE ANDREY RIVEROOLAS AUTO&AUTO CO HOS CO HOS DIFRNTL WBC PROTEIN 99310 [employer], [employer], TOTAL 3 CHILD AND YOUTH PROGRAM ASSISTANT CHILD AND YOUTH PROGRAM ASSISTANT XCPT ANDREY BALDERAS REFRACTOM CO HOS CO HOS ETRY URINE RADEX 11728 FARSHADJIMMY HOUSTON ESOPHAGUS 3 LILIBETH RADIOLOGY ASSOCIAT SCREENING 18380 LEON [facility]STON 3 LILIBETH MAMMOGRAP RADIOLOGY HY ASSOCIAT BILATERAL ADLT SZD T4526 [facility] DISPBL 3 HOME HOME INCONT HEALTH HEALTH PROD AGENCY AGENCY UNDWEAR MED EA DISPBL T4535 [facility]/KATHIE 3 HOME HOME ELD/GUARD HEALTH HEALTH /PAD/UNDG AGENCY AGENCY RMNT INCONT EA MRI 23656 [facility] 3 Y Y [facility] LUMBAR W/O CONTRAST MATERIAL PWR WC K0823 [facility] HOVEROUND GRP 2 STD 3 CAPTAINS CORPORATI CORPORATI CHAIR PT ON ON TO &=300 LBS HOS BED E0260 RICHARDSON BAI SEMI-ELEC 3 HOME HOME W/ANY MEDICAL MEDICAL TYPE SIDE EQUIPME EQUIPME RAIL W/MATTRSS ANES 47636 [facility] LOWER 3 ANESTH INTESTINE OF [place] [address] KRISSY KRISSY INFUSION 3 [facility] THERAPY INC INC PROPHYLAX IS/DX EA HOUR COLOREC G0105 ALLTOYIN AYNG JR CANCR 3 SAMIRA SAMIRA SCR; COLONSCPY [place] @[place] [address] KRISSY KRISSY INFUSION 3 [facility] THERAPY/P INC INC ROPHYLAXI S /DX 1ST TO 1 HR NJX 11059 [facility] DX/THER 3 Y Y AGT PVRT [facility]PITAL FACET JT LMBR/SAC 1 LEVEL LOCM Q9967 [facility] 300-399 3 Y Y MG/ML [facility] IODINE CONCENTRA TION PER ML INJECTION J3301 [facility] 3 Y Y [facility] LONE ACETONIDE NOS 10 MG ADLT [...] ON ON LEAD ACID BATTRY EA THERAPEUT 13219 [employer], [employer], IC PX 1/> 2 CHILD AND YOUTH PROGRAM ASSISTANT CHILD AND YOUTH PROGRAM ASSISTANT AREAS ANDREY ANDREY EACH 15 CO HOS CO HOS MIN EXERCISES THERAPEUT 31333 [employer], [employer], IC PX 1/> 2 CHILD AND YOUTH PROGRAM ASSISTANT CHILD AND YOUTH PROGRAM ASSISTANT AREAS ANDREY ANDREY EACH 15 CO HOS CO HOS MIN EXERCISES INCONTINE T4541 [facility] NCE 2 HOME HOME PRODUCT HEALTH HEALTH DISPOSABL AGENCY AGENCY E UNDPAD LARGE EA CT THORAX 12895 [facility] W/O 2 EIDER DEE CONTRAST RADIOLOGY MATERIAL ASSOCIAT THERAPEUT 65488 [employer], [employer], IC PX 1/> 2 CHILD AND YOUTH PROGRAM ASSISTANT CHILD AND YOUTH PROGRAM ASSISTANT AREAS ANDREY ANDREY EACH 15 [place] [address] [employer], [employer], UREA 2 CHILD AND YOUTH PROGRAM ASSISTANT CHILD AND YOUTH PROGRAM ASSISTANT NITROGEN ANDREY HANSENS QUANTITAT CO HOS CO HOS KETAN CREATININ 92245 [employer], [employer], E BLOOD 2 CHILD AND YOUTH PROGRAM ASSISTANT CHILD AND YOUTH PROGRAM ASSISTANT ANDREY ANDREY CO HOS CO HOS THERAPEUT 52451 [employer], [employer], IC PX 1/> 2 CHILD AND YOUTH PROGRAM ASSISTANT CHILD AND YOUTH PROGRAM ASSISTANT AREAS ANDREY ANDREY EACH 15 CO HOS CO HOS MIN EXERCISES HOS BED E0260 RICHARDSON RICHARDSON SEMI-ELEC 2 HOME HOME W/ANY MEDICAL MEDICAL TYPE SIDE EQUIPME EQUIPME RAIL W/MATTRSS THERAPEUT 78687 [employer], [employer], IC PX 1/> 2 CHILD AND YOUTH PROGRAM ASSISTANT CHILD AND YOUTH PROGRAM ASSISTANT AREAS ANDREY HANSENS EACH 15 [place] [address] [employer], [employer], 1/> AREAS 2 CHILD AND YOUTH PROGRAM ASSISTANT CHILD AND YOUTH PROGRAM ASSISTANT EA 15 ANDREY RIVEROOLAS MIN GAIT CO HOS CO HOS TRAINJ W/STAIR RADIOLOGI 00482 [facility], [employer], C EXAM 2 CHILD AND YOUTH PROGRAM ASSISTANT CHILD AND YOUTH PROGRAM ASSISTANT CHEST 2 ANDREY ANDREY VIEWS CO HOS CO HOS FRONTAL&L ATERAL THERAPEUT 72666 [employer], [employer], IC PX 1/> 2 CHILD AND YOUTH PROGRAM ASSISTANT CHILD AND YOUTH PROGRAM ASSISTANT AREAS ANDREY ANDREY EACH 15 CO HOS CO HOS MIN EXERCISES PHYSICAL 54711 [employer], [employer], THERAPY 2 CHILD AND YOUTH PROGRAM ASSISTANT CHILD AND YOUTH PROGRAM ASSISTANT EVALUATIO ANDREYDIYA HANSENS N CO HOS CO HOS THERAPEUT 96126 [employer], [employer], IC PX 1/> 2 CHILD AND YOUTH PROGRAM ASSISTANT CHILD AND YOUTH PROGRAM ASSISTANT AREAS ANDREY ANDREY EACH [address] [place] [address] [facility] ABDOMEN & 2 MEDICAL SCO PELVIS SERV W/O FOUNDATIO CONTRAST MATERIAL CREATINE 73495 [facility] KINASE 2 Y Y TOTAL [place] [address] [facility] ALDOLASE 2 Y Y [facility] SEDIMENTA 13046 [facility] TION RATE 2 Y Y RBC [facility] AUTOMATED COLLECTIO 53909 [facility] N VENOUS 2 Y Y BLOOD [facility] VENIPUNCT URE C-REACTIV 67952 [facility] E PROTEIN 2 Y Y [facility] RADEX 24615 [facility] SPINE 2 Y Y LUMBOSACR [facility] AL 2/3 VIEWS RADEX 95640 [facility] SHOULDER 2 Y Y COMPLETE [facility] MINIMUM 2 VIEWS RADIOLOGI 22049 [facility] C [facility]2 VIE[facility] DISPBL T4535 [facility]/KATHIE 2 HOME HOME ELD/GUARD HEALTH HEALTH /PAD/UNDG AGENCY AGENCY RMNT INCONT EA ADLT SZD T4526 [facility] DISPBL 2 HOME HOME INCONT HEALTH HEALTH PROD AGENCY AGENCY UNDWEAR MED EA PROTEIN 10-01-201 [id number] [employer], TOTAL 2 CHILD AND YOUTH PROGRAM ASSISTANT CHILD AND YOUTH PROGRAM ASSISTANT XCPT ANDREY ANDREY REFRACTOM CO HOS CO HOS ETRY URINE URNLS DIP 68853 [employer], 2 CHILD AND YOUTH PROGRAM ASSISTANT CHILD AND YOUTH PROGRAM ASSISTANT STICK/TAB ANDREY ANDREY LET CO HOS CO HOS 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 MICROSCOP Y BLOOD 16852 [employer], COUNT 2 CHILD AND YOUTH PROGRAM ASSISTANT CHILD AND YOUTH PROGRAM ASSISTANT COMPLETE ANDREY ANDREY AUTO&AUTO CO HOS CO HOS DIFRNTL WBC RENAL 06694 [employer], FUNCTION 2 CHILD AND YOUTH PROGRAM ASSISTANT CHILD AND YOUTH PROGRAM ASSISTANT PANEL ANDREY ANDREY CO HOS CO HOS CULTURE 96123 [employer], BACTERIAL 2 CHILD AND YOUTH PROGRAM ASSISTANT CHILD AND YOUTH PROGRAM ASSISTANT ANDREY ANDREY QUANTTATI CO HOS CO HOS VE COLONY COUNT URINE SUSCEPTBI 52934 [employer], LTY STDY 2 CHILD AND YOUTH PROGRAM ASSISTANT CHILD AND YOUTH PROGRAM ASSISTANT ANTIMICRB ANDREY ANDREY IAL AGNT CO HOS CO HOS AGAR DILUTJ CREATININ 54790 [employer], [employer], E OTHER 2 CHILD AND YOUTH PROGRAM ASSISTANT CHILD AND YOUTH PROGRAM ASSISTANT SOURCE ANDREY ANDREY CO HOS CO HOS CULTURE 34843 [facility] [place] [employer], BCT 2 CHILD AND YOUTH PROGRAM ASSISTANT CHILD AND YOUTH PROGRAM ASSISTANT ISOL&PRSM ANDREY ANDREY PTV ID CO HOS CO HOS ISOLATE EA URINE BLOOD 49675 [employer], COUNT 2 CHILD AND YOUTH PROGRAM ASSISTANT CHILD AND YOUTH PROGRAM ASSISTANT COMPLETE ANDREY ANDREY AUTO&AUTO CO HOS CO HOS DIFRNTL WBC BASIC 36931 [employer], METABOLIC 2 CHILD AND YOUTH PROGRAM ASSISTANT CHILD AND YOUTH PROGRAM ASSISTANT PANEL ANDREY [place] [address] [facility] [employer], INFUSION 2 CHILD AND YOUTH PROGRAM ASSISTANT CHILD AND YOUTH PROGRAM ASSISTANT THERAPY/P ANDREY ANDREY ROPHYLAXI CO HOS CO HOS S /DX 1ST TO 1 HR BLOOD 32007 [employer], COUNT 2 CHILD AND YOUTH PROGRAM ASSISTANT CHILD AND YOUTH PROGRAM ASSISTANT COMPLETE ANDREY ANDREY AUTO&[place] [address] [facility] [email or web address], [employer], INFUSION 2 CHILD AND YOUTH PROGRAM ASSISTANT CHILD AND YOUTH PROGRAM ASSISTANT HYDRATION ANDREY ANDREY INITIAL CO HOS CO HOS 31 MIN-1 HOUR URNLS DIP 14978 [employer], [employer], 2 CHILD AND YOUTH PROGRAM ASSISTANT CHILD AND YOUTH PROGRAM ASSISTANT STICK/TAB ANDREY ANDREY LET CO HOS CO HOS REAGENT AUTO MICROSCOP Y CULTURE 05557 [facility] [email or web address], [facility] [email or web address], BCT 2 CHILD AND YOUTH PROGRAM ASSISTANT CHILD AND YOUTH PROGRAM ASSISTANT ISOL&PRSM ANDREY BALDERAS PTV ID CO HOS CO HOS ISOLATE EA URINE COMPREHEN 11544 [employer], [facility], SIVE 2 CHILD AND YOUTH PROGRAM ASSISTANT CHILD AND YOUTH PROGRAM ASSISTANT METABOLIC ANDREY BALDER[place] [address] [facility] IMT ([employer]) [facility], LIPASE 2 CHILD AND YOUTH PROGRAM ASSISTANT CHILD AND YOUTH PROGRAM ASSISTANT ANDREY HANSENS CO HOS CO HOS SUSCEPTBI 64716 [facility] [email or web address], [employer], LTY STDY 2 CHILD AND YOUTH PROGRAM ASSISTANT CHILD AND YOUTH PROGRAM ASSISTANT ANTIMICRB ANDREY RIVEROOLAS IAL AGNT CO HOS CO HOS AGAR DILUTJ DIRECT [id number] [facility] IMT ([employer]) [facility], ADMISSION 2 CHILD AND YOUTH PROGRAM ASSISTANT CHILD AND YOUTH PROGRAM ASSISTANT PATIENT ANDREY ANDREY [facility] CO HOS CO HOS [facility] G0378 [facility] IMT ([employer]) [facility], OBSERVATI 2 CHILD AND YOUTH PROGRAM ASSISTANT CHILD AND YOUTH PROGRAM ASSISTANT ON ANDREY BALDERAS SERVICE CO HOS CO HOS PER HOUR CULTURE 96197 [employer], BACTERIAL 2 CHILD AND YOUTH PROGRAM ASSISTANT CHILD AND YOUTH PROGRAM ASSISTANT ANDREY BADLERAS QUANTTATI CO HOS CO HOS VE COLONY COUNT URINE INJECTION J2405 [employer], 2 CHILD AND YOUTH PROGRAM ASSISTANT CHILD AND YOUTH PROGRAM ASSISTANT ONDANSETR ANDREYAlmaz BALDERAS ON HCL CO HOS CO HOS PER 1 MG ADLT SZD T4526 [facility] DIS[facility] 2 HOME HOME INCONT HEALTH HEALTH PROD AGENCY AGENCY UNDWEAR MED EA DISPBL T4535 [facility] LINER/KATHIE 2 HOME HOME ELD/GUARD HEALTH HEALTH /PAD/UNDG AGENCY AGENCY RMNT INCONT EA ECG 78921 CRISTIAN CORNEJO CORNEJO CRISTIAN ROUTINE 2 MD ECG CONSULTIN W/LEAST G SRV 12 LDS I&R ONLY ECG 72921 CRISTIAN CORNEJO CORNEJO CRISTIAN ROUTINE 2 MD ECG CONSULTIN W/LEAST G SRV 12 LDS I&R ONLY HOSPITAL 77287 JAVIER JAVIER DISCHARGE 2 PEDRO PEDRO DAY MANAGEMEN T 30 MIN/< ECG 29097 [facility] [employer], ROUTINE 2 CHILD AND YOUTH PROGRAM ASSISTANT CHILD AND YOUTH PROGRAM ASSISTANT ECG ANDREY HANSENS W/LEAST CO HOS CO HOS 12 LDS TRCG ONLY W/O I&R COMPREHEN 28931 [facility], MHC INC, SIVE 2 CHILD AND YOUTH PROGRAM ASSISTANT CHILD AND YOUTH PROGRAM ASSISTANT METABOLIC ANDREY ANDREY PANEL CO HOS CO HOS CULTURE 37477 [employer], [employer], BCT 2 CHILD AND YOUTH PROGRAM ASSISTANT CHILD AND YOUTH PROGRAM ASSISTANT ISOL&PRSM ANDREY ANDREY PTV ID CO HOS CO HOS ISOLATE EA URINE CULTURE 02613 [facility] INC, [employer], BACTERIAL 2 CHILD AND YOUTH PROGRAM ASSISTANT CHILD AND YOUTH PROGRAM ASSISTANT ANDREY ANDREY QUANTTATI CO HOS CO HOS VE COLONY COUNT URINE FIBRIN 53678 [employer], [employer], DGRADJ 2 CHILD AND YOUTH PROGRAM ASSISTANT CHILD AND YOUTH PROGRAM ASSISTANT PRODUCTS ANDREY ANDREY D-DIMER CO HOS CO HOS QUAL/SEMI HEATHER PROTHROMB 12772 [employer], [employer], IN TIME 2 CHILD AND YOUTH PROGRAM ASSISTANT CHILD AND YOUTH PROGRAM ASSISTANT ANDREY ANDREY CO HOS CO HOS SUSCEPTBI 46315 [facility] INC, [employer], LTY STDY 2 CHILD AND YOUTH PROGRAM ASSISTANT CHILD AND YOUTH PROGRAM ASSISTANT ANTIMICRB ANDREY ANDREY IAL AGNT CO HOS CO HOS AGAR DILUTJ CREATINE 85622 [facility] INC, [employer], KINASE 2 CHILD AND YOUTH PROGRAM ASSISTANT CHILD AND YOUTH PROGRAM ASSISTANT TOTAL ANDREY ANDREY CO HOS CO HOS CREATINE 02573 [employer], [employer], KINASE MB 2 CHILD AND YOUTH PROGRAM ASSISTANT CHILD AND YOUTH PROGRAM ASSISTANT FRACTION [place]RE[place] [address] [employer], [employer], INFUSION 2 CHILD AND YOUTH PROGRAM ASSISTANT CHILD AND YOUTH PROGRAM ASSISTANT THERAPY/P ANDREY ANDREY ROPHYLAXI CO HOS CO HOS S /DX 1ST TO 1 HR URNLS DIP 96810 [employer], [employer], 2 CHILD AND YOUTH PROGRAM ASSISTANT CHILD AND YOUTH PROGRAM ASSISTANT STICK/TAB ANDREY ANDREY LET CO HOS CO HOS 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 AUTO MICROSCOP Y NATRIURET 16474 [employer], [employer], IC 2 CHILD AND YOUTH PROGRAM ASSISTANT CHILD AND YOUTH PROGRAM ASSISTANT PEPTIDE ANDRE[place] [address] [employer], [employer], TROPONIN 2 CHILD AND YOUTH PROGRAM ASSISTANT CHILD AND YOUTH PROGRAM ASSISTANT QUANTITAT ANDREY [place] [address] [employer], [employer], INFUSION 2 CHILD AND YOUTH PROGRAM ASSISTANT CHILD AND YOUTH PROGRAM ASSISTANT HYDRATION ANDREY ANDREY INITIAL CO HOS CO HOS 31 MIN-1 HOUR BLOOD 04927 [employer], [employer], COUNT 2 CHILD AND YOUTH PROGRAM ASSISTANT CHILD AND YOUTH PROGRAM ASSISTANT COMPLETE ANDREY ANDREY AUTO&AUTO CO HOS CO HOS DIFRNTL WBC RADIOLOGI 72825 [facility], [facility], C 2 CHILD AND YOUTH PROGRAM ASSISTANT CHILD AND YOUTH PROGRAM ASSISTANT EXAMINATI ANDREY HANSENS ON CHEST CO HOS CO HOS [place] FRONTAL LIPID 59768 [facility], [facility] INC, PANEL 2 CHILD AND YOUTH PROGRAM ASSISTANT CHILD AND YOUTH PROGRAM ASSISTANT ANDREY [place] [address] [facility], [facility] INC, FREE 2 CHILD AND YOUTH PROGRAM ASSISTANT CHILD AND YOUTH PROGRAM ASSISTANT THYROXINE ANDREY [place] [address] [facility], [facility] INC, THYROID 2 CHILD AND YOUTH PROGRAM ASSISTANT CHILD AND YOUTH PROGRAM ASSISTANT STIMULATI ANDREY ANDREY NG CO HOS CO HOS HORMONE TSH COMPREHEN 78128 [facility], [facility] INC, SIVE 2 CHILD AND YOUTH PROGRAM ASSISTANT CHILD AND YOUTH PROGRAM ASSISTANT METABOLIC ANDREY ANDREY PANEL CO HOS CO HOS ECG 14651 CRISTIAN CORNEJO CRONEJO CRISTIAN ROUTINE 2 MD ECG CONSULTIN W/LEAST G SRV 12 LDS I&R ONLY RADIOLOGI 18382 [facility], [facility] INC, C EXAM 2 CHILD AND YOUTH PROGRAM ASSISTANT CHILD AND YOUTH PROGRAM ASSISTANT CHEST 2 ANDREY ANDREY VIEWS CO HOS CO HOS FRONTAL&L ATERAL COMPREHEN 04343 [facility], [facility] INC, SIVE 2 CHILD AND YOUTH PROGRAM ASSISTANT CHILD AND YOUTH PROGRAM ASSISTANT METABOLIC ANDREY ANDREY PANEL CO HOS CO HOS ECG 49649 [facility], [facility] INC, ROUTINE 2 CHILD AND YOUTH PROGRAM ASSISTANT CHILD AND YOUTH PROGRAM ASSISTANT ECG ANDREY ANDREY W/LEAST CO HOS CO HOS 12 LDS TRCG ONLY W/O I&R GASES 54009 [facility] [email or web address], [facility] INC, BLOOD PH 2 CHILD AND YOUTH PROGRAM ASSISTANT CHILD AND YOUTH PROGRAM ASSISTANT DIRECT ANDREY BALDERAS FELA XCPT CO HOS CO HOS PULSE OXIMITRY CULTURE 50394 [facility], [facility] INC, BACTERIAL 2 CHILD AND YOUTH PROGRAM ASSISTANT CHILD AND YOUTH PROGRAM ASSISTANT ANDREY ANDREY QUANTTATI CO HOS CO HOS VE COLONY COUNT URINE URNLS DIP 10342 [facility], [facility] INC, 2 CHILD AND YOUTH PROGRAM ASSISTANT CHILD AND YOUTH PROGRAM ASSISTANT STICK/TAB ANDREY BALDERAS LET CO HOS CO HOS 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 Y ARTERIAL 23194 [facility], [facility] INC, PUNCTURE 2 CHILD AND YOUTH PROGRAM ASSISTANT CHILD AND YOUTH PROGRAM ASSISTANT WITHDRAWA ANDREY HANSENS L BLOOD CO HOS CO HOS DX INJECTION J2280 [facility], [facility], 2 CHILD AND YOUTH PROGRAM ASSISTANT CHILD AND YOUTH PROGRAM ASSISTANT MOXIFLOXA ANDREY HANSENS KJ 100 CO HOS CO HOS MG BASIC 81118 [facility] [email or web address], [employer], METABOLIC 2 CHILD AND YOUTH PROGRAM ASSISTANT CHILD AND YOUTH PROGRAM ASSISTANT PANEL ANDREY BALDERAS [place] [address] [employer], [employer], INFUSION 2 CHILD AND YOUTH PROGRAM ASSISTANT CHILD AND YOUTH PROGRAM ASSISTANT THERAPY/P ANDREY BALDERAS ROPHYLAXI CO HOS CO HOS S /DX 1ST TO 1 [place] [address] [employer], [employer], INFUSION 2 CHILD AND YOUTH PROGRAM ASSISTANT CHILD AND YOUTH PROGRAM ASSISTANT HYDRATION ANDREY BALDERAS EACH [place] [address] [employer], [employer], INFUSION 2 CHILD AND YOUTH PROGRAM ASSISTANT CHILD AND YOUTH PROGRAM ASSISTANT HYDRATION ANDREY BALDERAS INITIAL CO HOS CO HOS 31 MIN-1 HOUR BLOOD 96386 [employer], [employer], COUNT 2 CHILD AND YOUTH PROGRAM ASSISTANT CHILD AND YOUTH PROGRAM ASSISTANT COMPLETE ANDREY BALDERAS AUTO&AUTO CO HOS CO HOS DIFRNTL WBC SUSCEPTBI 97073 [employer], [employer], LTY STDY 2 CHILD AND YOUTH PROGRAM ASSISTANT CHILD AND YOUTH PROGRAM ASSISTANT ANTIMICRB ANDREY BALDERAS IAL AGNT CO HOS CO HOS [facility] G0378 [employer], [employer], OBSERVATI 2 CHILD AND YOUTH PROGRAM ASSISTANT CHILD AND YOUTH PROGRAM ASSISTANT ON ANDREY BALDERAS SERVICE CO HOS CO HOS PER HOUR CULTURE 70513 [employer], [employer], BCT 2 CHILD AND YOUTH PROGRAM ASSISTANT CHILD AND YOUTH PROGRAM ASSISTANT ISOL&PRSM ANDERY BALDERAS PTV ID CO HOS CO HOS ISOLATE EA URINE RADIOLOGI 69456 [facility] EXAM 2 LILIBETH CHEST 2 RADIOLOGY VIEWS ASSOCIAT FRONTAL&L ATERAL INJECTION J0280 [facility] 2 Y [facility] UP TO 250 MG CV STRS 64047 [facility] 2 Y Y XERS&/OR [facility] RX CONT ECG TRCG ONLY CV STRS 40405 [facility] TST 2 MEDICAL SAMIRA XERS&/OR SERV RX CONT FOUNDATIO ECG W/O I&R TECHNETIU A9500 [facility]-99M 2 Y Y [facility] DX PER STUDY DOSE MYOCARDIA 14941 [facility] SPECT 2 Y Y [facility] STUDIES INJECTION J2785 [place] [address] Y [facility] ON 0.1 MG CV STRS 84649 [place] P[facility] TST 2 MEDICAL SAMIRA XERS&/OR SERV RX CONT FOUNDAT[place] ECG I&[place] [address] [place] DISANTIS ABDOMEN & 2 MEDICAL JEWELS PELVIS SERV W/O FOUNDATIO CONTRAST MATERIAL ECG 00242 CRISTIAN CORNEJO CORNEJO CRISTIAN ROUTINE 2 MD ECG CONSULTIN W/LEAST G SRV 12 LDS I&R ONLY URINLS 08071 KMS[facility] DAVEY DIP 2 NURSE GWE STICK/TAB PRACTITIO LET NER GR REAGNT NON-AUTO MICRSCPY CULTURE 33647 [facility] BACTERIAL 2 Y Y [facility] QUANTTATI VE COLONY COUNT URINE CUL BACT 45659 [facility] AEROBIC 2 Y Y [facility] METHS DEFINITIV E EA ISOL SUSCEPTBI 28077 [facility] STDY [address] [facility] IAL AGNT AGAR DILUTJ SUSCEPTIB 47099 [facility] STDY [address] [facility] IAL MICRO/AGA R DILUTJ ECG 28233 CRISTIAN CORNEJO CORNEJO CRISTIAN ROUTINE 2 MD ECG CONSULTIN W/LEAST G SRV 12 LDS I&R ONLY ECG 50466 CRISTIAN CORNEJO CORNEJO CRISTIAN ROUTINE 1 MD ECG CONSULTIN W/LEAST G SRV 12 LDS I&R ONLY ECG 97608 CRISTIAN CORNEJO CORNEJO CRISTIAN ROUTINE 1 MD ECG CONSULTIN W/LEAST G SRV 12 LDS I&R ONLY URNLS DIP 17181 ANDREY BALDERAS 1 CO CO STICK/TAB [facility] LET REAGENT AUTO MICROSCOP Y BLOOD 75115 ANDREY BALDERAS COUNT 1 CO CO COMPLETE [facility] AUTO&[place] [address] ANDREY BALDERAS BLOOD/URI 1 CO CO C ACID [facility] BLOOD 40867 ANDREY BALDERAS COUNT 1 CO CO SMEAR [facility] MCRSCP W/MNL DIFRNTL WBC COUNT PROTEIN 96374 ANDREY BALDERAS TOTAL 1 CO CO XCPT [facility] REFRACTOM ETRY URINE SUSCEPTBI 25250 ANDREY BALDERAS LTY STDY 1 CO [facility] AGNT AGAR DILUTJ CULTURE 73283 ANDREY BALDERAS BACTERIAL 1 CO [facility] QUANTTATI VE COLONY COUNT URINE COLLECTIO 09577 ANDREY BALDERAS N VENOUS 1 CO PR BLOOD [facility] VENIPUNCT URE CREATININ 74691 ANDREY Bolivar OTHER 1 CO CO SOURCE [facility] [place] [address] ANDREY BALDERAS PHOSPHORU 1 CO [facility] INORGANIC CULTURE 27396 ANDREY BALDERAS BCT 1 CO PR ISOL&PRSM [facility] PTV ID ISOLATE EA URINE COMPREHEN 95905 ANDREY BALDERAS SIVE 1 CO CO [facility] 71900 [facility] DISCHARGE 1 [place] FAMILY DAY MEDICINE MANAGEMEN P T 30 MIN/< DUP-SCAN 01563 [place] MARIO XTR VEINS 1 MEDICAL [place] SERV UNILATERA FOUNDATIO L/LIMITED STUDY ECG 31586 [place] OLIVEIRA ROUTINE 1 MEDICAL NAN ECG SERV W/LEAST FOUNDATIO 12 LDS I&R ONLY RADIOLOGI 61175 [place] DELICIA PEDRO C EXAM 1 MEDICAL CHEST 2 SERV VIEWS FOUNDATIO FRONTAL&L ATERAL RADIOLOGI 73559 ANDREY BALDERAS C 0 CO CO [facility] ON PELVIS 1/2 VIEWS RADIOLOGI 60427 ANDREY BALDERAS C 0 CO CO [facility] ON KNEE 3 VIEWS OVA&ZONIA 52659 ANDREY BALDERAS ITES 0 CO CO [facility] SMEARS CONCENTRA TION & ID COMPLEMEN 59334 ANDREY Flor TOTAL 0 CO CO HEMOLYTIC [facility] URNLS DIP 71123 ANDREY BALDERAS 0 CO CO STICK/TAB [facility] LET REAGENT AUTO MICROSCOP Y RENAL 93746 ANDREY BALDERAS FUNCTION 0 CO CO [facility] PROTEIN 16685 ANDREY BALDERAS TOTAL 0 CO [facility] URINE BLOOD 58583 ANRDEY ANDREY COUNT 0 CO CO SMEAR [facility] MCRSCP W/MNL DIFRNTL WBC COUNT RADEX HIP 36748 ANDREY BALDERAS 0 CO CO [facility] L COMPLETE MINIMUM 2 [place] [address] ANDREY ANDREY PARATHORM 0 CO CO [facility] CREATININ 10068 ANDREY BALDERAS E OTHER 0 CO CO SOURCE [facility] DNA 48027 ANDREY BALDERAS ANTIBODY 0 CO CO KAGUYUK/DO [facility] UBLE STRANDED CREATINE 93443 ANDREY ANDREY KINASE 0 CO CO TOTAL [facility] 25 81751 ANDREY ANDREY HYDROXY 0 CO CO [facility] [place] [address] ANDREY ANDREY ALDOLASE 0 CO CO [facility] COLLECTIO 54116 ANDREY ANDREY N VENOUS 0 CO CO BLOOD [facility] VENIPUNCT URE COMPLEMEN 35683 ANDREY RIVEROOLAS T ANTIGEN 0 CO CO EACH [facility] COMPONENT C-REACTIV 62978 ANDREY ANDREY E PROTEIN 0 CO CO [facility] SEDIMENTA 75334 ANDREY BALDERAS TION RATE 0 CO CO RBC [facility] NON-AUTOM ATED COLLECTIO 13661 [facility] N VENOUS 0 Y Y BLOOD [facility] VENIPUNCT URE COMPREHEN 95596 [facility] UNIVERSIT SIVE 0 Y Y METABOLIC [facility] PANEL BLOOD 40088 [facility] UN[facility] COUNT 0 Y Y COMPLETE [facility] AUTO&AUTO DIFRNTL WBC BLOOD 47971 [facility]IV[facility] COUNT 0 Y Y [facility] HOSPITAL AUTO&AUTO DIFRNTL WBC COMPREHEN 28360 UNIVERSIT UNIVERSIT SIVE 0 Y Y METABOLIC [facility] PANEL COLLECTIO 40905 UN[facility]ERSIT UNIVERSIT N VENOUS 0 Y Y BLOOD [facility] VENIPUNCT URE CHROMATOG 11532 UNIVERSIT UNIVERSIT SURYA 0 Y Y HEATHER [facility] COLUMN 1 ANALYTE KARLENE ANESTHESI 90582 [facility] G A EYE 0 ANESTHESI LENS A ASSOC SURGERY OPH BMTRY 86918 PHILIPP RIVERO BRANT PRTL 0 ROBERT COHER INTRFRMTR Y IO LENS PWR KELLEE CATARACT 84277 [facility] REMOVAL 0 [facility] EYE [facility] EYE INSERTION SURG SURG OF LENS AMBULA AMBULA ECG 81864 [facility] ROUTINE 0 Y Y ECG [facility] W/LEAST 12 LDS TRCG ONLY W/O I&R Encounters Encounter Start End Date Code Location Performer Type Date SWITCHBACK [facility], 7 7 HOME INPATIENT HEALTH AGENCY OFFICE 36767 [facility] GUILLEN OUTPATIEN 7 7 MEDICAL T VISIT SERV 25 FOUNDATIO MINUTES [facility] - 7 7 [facility] OUTPATIEN INC [facility] - 7 7 [facility], 7 7 HOME INPATIENT HEALTH AGENCY OFFICE 35912 [facility] ARIANE OUTPATIEN 7 7 MEDICAL JR T NEW 45 SERV MINUTES FOUNDATIO N OFFICE 02524 [facility] HERBERT OUTPATIEN 7 7 MEDICAL T VISIT SERV 40 FOUNDATIO MINUTES N SWITCHBACK [facility], 7 7 HOME INPATIENT HEALTH AGENCY [facility] - 7 7 [facility] OUTPATI[facility] HOSPITALS OFFICE 44528 [facility] HERBERT OUTPATIEN 7 7 MEDICAL T VISIT SERV 40 FOUNDATIO MINUTES N SWITCHBACK [facility], 7 7 HOME INPATIENT HEALTH AGENCY OFFICE 64733 [facility] AMADOR OUTPATIEN 6 6 MEDICAL T VISIT SERV 25 FOUNDATIO MINUTES [facility] - 6 6 [facility] OUTPATIEN INC T OFFICE 14151 [facility] [place] [place] OUTPATI[facility] 6 6 PHYSICIAN T VISIT S GROUP 10 MINUTES OFFICE 68137 [facility] OUTPATIEN 6 6 PHYSICIAN T VISIT S GROUP 10 MINUTES HOSPITAL KRISYS - 6 6 [facility] T OFFICE 15756 [facility]GE [facility] OUTPATIEN 6 6 PHYSICIAN T VISIT S GROUP 15 MINUTES HOSPITAL KRISSY - 6 6 [facility] T OFF[facility] 36463 [facility] OUTPATI[facility] 6 6 PHYSICIAN T NEW 30 S GROUP MINUTES HOSPITAL KRISSY - 6 6 [facility] - 6 6 [facility] [address]163 [place] HERBERT SIMEONI OUTPATIEN 6 6 MEDICAL T VISIT SERV 25 FOUNDATIO MINUTES HOME [facility], 6 6 HOME INPATIENT HEALTH AGENCY EMERGENCY 80331 [facility] DEPT 6 6 HARIS VISIT EMERGENCY HIGH PHYS SEVERITY& TH[facility]AT [facility], 6 6 HOME INPATIENT HEALTH AGENCY [facility]OSPITAL UNIVERSIT - 6 6 Y [facility] T OFFICE 76667 [place] HERBERT SIMEONI OUTPATIEN 6 6 MEDICAL T VISIT SERV 40 FOUNDATIO MINUTES N OFFICE 32953 [place] JAQUEZ OUTPATIEN 6 6 [facility] T VISIT INTERNAL 15 MEDI MINUTES HOSPITAL KRISSY - OTHER 6 6 MEM H[facility]P [facility] HOME [facility], 6 6 HOME INPATIENT HEALTH AGENCY OFFICE 19817 [place] YOVNAY OUTPATIEN 6 6 [facility] [place] T VISIT INTERNAL 15 MEDI MINUTES OFFICE 23088 [place] WILMER AMADOR OUTPATIEN 6 6 MEDICAL T VISIT SERV 25 FOUNDATIO MINUTES [facility] KRISSY - OTHER 6 6 [facility] INC OFFICE 20099 [place] LUJAN OUTPATIEN 6 6 YONY KRIS T NEW 30 MINUTES HOME [facility], 6 6 HOME INPATIENT HEALTH [facility] KRISSY - 6 6 [facility] OUTPATIEN INC T OFFICE 04740 [place] BESSON OUTPATIEN 6 6 VALLEY TIMOTHY T VISIT INTERNAL 25 MED MINUTES HOSPITAL UNIVERSIT - 5 5 Y [facility] T OFFICE 96363 [facility] ARGUETA OUTPATIEN 5 5 MEDICAL T VISIT SERV 40 FOUNDATIO MINUTES [facility] KR[facility] - 5 5 [facility] OUTPATIEN INC T EMERGENCY 92910 [facility] DEPT 5 5 PHYSICIAN U CAROL VISIT S, PLLC HIGH SEVERITY& THREAT FUNJ EMERGENCY 91954 KRISSY 5 5 MEM [facility]OS[facility] DEPARTMEN INC T VISIT HIGH/URGE NT SEVERITY HOME [facility], 5 5 HOME INPATIENT HEALTH AGENCY OFFICE 78252 [facility] 5 PHYSICIAN T VISIT S GROUP 15 MINUTES HOME [facility], 5 5 HOME INPATIENT HEALTH AGENCY OFFICE 59945 [place] B[facility] OUTPATIEN 5 5 [facility] T VISIT INTERNAL 15 MED MINUTES HOSPITAL KRISSY - 5 5 [facility] OUTPATIEN INC [facility]OSPITAL KRISSY - 5 5 [facility] OUTPATIEN [facility] 5 5 PHYSICIAN T NEW 30 S GROUP MINUTES HOSPITAL KRISSY - 5 5 [facility] OUTPATIEN INC T OFFICE 30818 [facility] AMADOR OUTPATIEN 5 5 MEDICAL T VISIT SERV 25 FOUNDATIO MINUTES N OFFICE 85654 [place] JAQUEZ OUTPATIEN 5 5 [facility] T VISIT INTERNAL 15 MEDI MINUTES HOSPITAL KRISSY - OTHER 5 5 [facility] INC HOME [facility], 5 5 HOME INPATIENT HEALTH AGENCY OFFICE 43042 [place] JAQUEZ OUTPATIEN 5 5 [facility] T VISIT INTERNAL 25 MEDI MINUTES HOME [facility], 5 5 DIST OTHER HEALTH DEPT [facility] HOSPITAL KRISSY - 5 5 [facility] OUTPATIEN INC T HOME [facility], 5 5 DIST OTHER HEALTH DEPT [facility], 5 5 HOME INPATIENT HEALTH AGENCY HOME [facility], 5 5 DIST OTHER HEALTH DEPT [facility] OFFICE [id number] MINH ARGUETA OUTPATIEN 5 5 MEDICAL T VISIT SERV 40 FOUNDATIO MINUTES N EMERGENCY [id number] [facility] 5 5 [facility] DEPARTMEN INC T VISIT HIGH/URGE NT SEVERITY [facility] - 5 5 [facility] OUTPATIEN INC T HOME [facility] 5 5 DIST OTHER HEALTH DEPT [facility] HOME [facility], 5 5 DIST OTHER HEALTH DEPT [facility] 5 5 HOME OUTPATIEN HEALTH T AGENCY OFFICE [id number] [place] BESSON OUTPATIEN 5 5 [facility] TIMOTHY T VISIT INTERNAL 15 MED MINUTES HOME [facility], 5 5 DIST OTHER HEALTH DEPT [facility] OFFICE [id number] MINH AMADOR OUTPATIEN 5 5 MEDICAL T VISIT SERV 25 FOUNDATIO MINUTES N HOME [facility], 5 5 DIST OTHER HEALTH DEPT THERAPY MANAGER HOME [facility], 5 5 DIST OTHER HEALTH DEPT THERAPY MANAGER HOME [facility], 5 5 HOME OUTPATIEN HEALTH T AGENCY OFFICE 18499 [place] HERBERT KRI OUTPATIEN 5 5 MEDICAL T VISIT SERV 40 FOUNDATIO MINUTES N HOME [facility], 5 5 DIST OTHER HEALTH DEPT THERAPY MANAGER HOME [facility], 4 4 HOME OUTPATIEN HEALTH T AGENCY [facility], 4 4 DIST OTHER HEALTH DEPT THERAPY MANAGER HOME [facility], 4 4 DIST OTHER HEALTH DEPT THERAPY MANAGER OFFICE [id number] [place] HERBERT ELLIE OUTPATIEN 4 4 MEDICAL T VISIT SERV 15 FOUNDATIO MINUTES N HOME [facility], 4 4 HOME OUTPATIEN HEALTH T AGENCY OFFICE 17908 [place] WILMER AMADOR OUTPATIEN 4 4 MEDICAL T VISIT SERV 25 FOUNDATIO MINUTES [facility]OSPITAL [facility] - 4 4 [facility]IEN INC T [facility] - 4 4 [facility] OUTPATIEN INC T HOME [facility], 4 4 DIST OTHER HEALTH DEPT THERAPY MANAGER HOME [facility], 4 4 DIST OTHER HEALTH DEPT [facility] HOME [facility], 4 4 HOME OUTPATIEN HEALTH T AGENCY HOME [facility], 4 4 DIST OTHER HEALTH DEPT THERAPY MANAGER OFFICE [id number] [place] GUILLEN PERRY OUTPATIEN 4 4 MEDICAL T VISIT SERV 25 FOUNDATIO MINUTES OFFICE 80906 [place] HERBERT KRI OUTPATIEN 4 4 MEDICAL T VISIT SERV 25 FOUNDATIO MINUTES [facility]OSPITAL [facility] - 4 4 [facility] OUT[facility]IEN INC T HOME [facility], 4 4 DIST OTHER HEALTH DEPT THERAPY MANAGER HOME [facility], 4 4 DIST OTHER HEALTH DEPT THERAPY MANAGER HOME [facility], 4 4 HOME OUTPATIEN HEALTH T AGENCY [facility], 4 4 DIST OTHER HEALTH DEPT THERAPY MANAGER OFFICE [address] [place] HERBERT ARGUETA OUTPATIEN 4 4 MEDICAL T VISIT SERV 40 FOUNDATIO MINUTES HOME [facility], 4 4 DIST OTHER HEALTH DEPT THERAPY MANAGER OFFICE [address]64 [place] WILMER AMADOR OUTPATIEN 4 4 MEDICAL T VISIT SERV 25 FOUNDATIO MINUTES CRITICAL [facility] ACC[facility] 4 4 [facility], 4 4 DIST OTHER HEALTH DEPT THERAPY MANAGER HOME [facility], 4 4 HOME OUTPATIEN HEALTH T AGENCY HOME [facility], 4 4 DIST OTHER HEALTH DEPT THERAPY MANAGER OFFICE 79180 [place] [facility] 4 VALLEY TIMOTHY T VISIT INTERNAL 15 MED MINUTES HOME [facility], 4 4 HOME OUTPATI HEALTH T AGENCY HOME [facility], 4 4 DIST OTHER HEALTH DEPT [facility] - 3 3 [facility] 58893 MINH AMADOR OUTPATIEN 3 3 MEDICAL T VISIT SERV 25 FOUNDATIO MINUTES CRITICAL [facility], [facility] 3 3 [facility] HOS CRITICAL [facility] 3 3 [facility], 3 3 DIST OTHER HEALTH DEPT THERAPY MANAGER OFFICE 07807 [place] HEBER OUTPATIEN 3 3 MEDICAL EJ T NEW 45 SERV MINUTES FOUNDATIO HOME [facility] DIST OTHER HEALTH DEPT THERAPY MANAGER CRITICAL [facility] ACC[facility] 3 3 [facility] HOME [facility], 3 3 HOME OUTPATIEN HEALTH T AGENCY OFFICE [address]45 [place] HERBERT ARGUETA OUTPATIEN 3 3 MEDICAL T VISIT SERV 40 FOUNDATIO MINUTES HOME [facility], 3 3 DIST OTHER HEALTH DEPT THERAPY MANAGER OFFICE 36815 MINH AMADOR OUTPATIEN 3 3 MEDICAL T VISIT SERV 25 FOUNDATIO MINUTES HOME [facility], 3 3 DIST OTHER HEALTH DEPT [facility] 3 3 [facility]ITICAL [facility] ACCESS 3 3 [facility] CRITICAL [facility], ACCESS 3 3 CHILD AND YOUTH PROGRAM [facility] HOS HOME [facility], 3 3 DIST OTHER HEALTH DEPT THERAPY MANAGER OFFICE 77511 [place] BESSON OUTPATIEN 3 3 VALLEY TIMOTHY T VISIT INTERNAL 15 MED MINUTES HOME [facility], 3 3 HOME OUTPATIEN HEALTH T AGENCY HOME [facility], 3 3 DIST OTHER HEALTH DEPT THERAPY MANAGER OFFICE 81857 ALLRAN JR ALLRAN JR OUTPATIEN 3 3 SAMIRA SAMIRA T VISIT 15 MINUTES OFFICE 32523 CRISTIAN CLEMENTE MURILLO CAR OUTPATIEN 3 3 MD T VISIT CONSULTIN 25 G SERV MINUTES OFFICE 19888 [place] BESSON OUTPATIEN 3 3 VALLEY TIMOTHY T VISIT INTERNAL 25 MED MINUTES CRITICAL [facility] 3 3 [facility] [place] - 3 3 [facility] CRITICAL [facility], ACCESS 3 3 [facility] - 3 3 [facility] [place] - 3 3 [facility] HOME [facility], 3 3 DIST OTHER HEALTH DEPT [facility] [place] - 3 3 [facility] - 3 3 [facility], 3 3 DIST OTHER [facility] KRISSY - 3 3 [facility] 12910 [place] [facility] 3 3 [facility] VISIT [facility]NAL 15 MED MINUTES HOSPITAL [place] - 3 3 [facility] - 3 3 [facility], 3 3 DIST OTHER HEALTH [facility] OFFICE 14922 CELIA YANG [facility] 3 3 SAMIRA SAMIRA T VISIT 15 MINUTES HOME [facility], 3 3 DIST OTHER HEALTH DEPT [facility], 3 3 HOME [facility] T AGENCY CR[facility]ICAL [facility] ACCESS 3 3 [facility] HOME [facility], 3 3 DIST OTHER HEALTH DEPT [facility] CR[facility]ICAL [facility], ACCESS 3 3 [facility] OFFICE 02243 CELIA YANG [facility] 3 3 SAMIRA SAMIRA T VISIT 15 MINUTES OFFICE 49008 MINH AMADOR OUTPATIEN 3 3 MEDICAL T VISIT SERV 25 FOUNDATIO MINUTES CRITICAL [facility], ACCESS 3 3 [facility] HOS HOME [facility], 3 3 DIST OTHER HEALTH DEPT [facility] CR[facility]ICAL [facility], ACCESS 3 3 [facility] CO HOS CRITICAL [facility], ACCESS 3 3 [facility] CO HOS HOME [facility], 3 3 [facility] - 3 3 [facility] - 3 3 [facility] OUTPATIEN INC T HOME [facility], 3 3 DIST OTHER HEALTH DEPT [facility] UN[facility] - 3 3 Y [facility] T OFFICE 47841 MINH ARGUETA OUTPATIEN 2 2 MEDICAL T VISIT SERV 25 FOUNDATIO MINUTES HOME [facility], 2 2 [facility] T AGENCY OFFICE 33949 CELIA YANG JR OUTPATIEN 2 2 SAMIRA SAMIRA T NEW 30 MINUTES HOME [facility], 2 2 DIST OTHER HEALTH DEPT [facility] HOME [facility] 2 2 HOME [facility] T AGENCY CRITICAL [facility] ACCESS 2 2 [facility] CO HOS CRITICAL [facility] ACCESS 2 2 [facility] CO HOS CRITICAL [facility], ACCESS 2 2 [facility] CO HOS CRITICAL [facility], ACCESS 2 2 [facility] AND[facility]Y CO [facility] UNIVERSIT - 2 2 Y [facility] [address]01 [place] ENDEAN OUTPATIEN 2 2 MEDICAL XOCHITL T VISIT SERV 15 FOUNDATIO MINUTES HOME [facility], 2 2 DIST OTHER HEALTH DEPT [facility] - 2 2 Y [facility] [address]754 [place] HERBERT KRI OUTPATIEN 2 2 MEDICAL T VISIT SERV 25 FOUNDATIO MINUTES HOME [facility], 2 2 [facility] T AGENCY OFFICE 46666 [place] GUILLEN PERRY OUTPATIEN 2 2 MEDICAL T VISIT SERV 25 FOUNDATIO MINUTES HOME [facility], 2 2 DIST OTHER HEALTH DEPT [facility] EMERGENCY 60614 [facility], 2 2 [facility] VISIT CO HOS HIGH/URGE NT SEVERITY CRITICAL [facility], ACCESS 2 2 [facility] CO HOS HOME [facility], 2 2 [facility] AGENCY HOME [facility], 2 2 DIST OTHER HEALTH DEPT [facility] EMERGENCY 37306 AND[facility] HERRERA 2 2 CO [facility] T VISIT MODERATE SEVERITY EMERGENCY 44615 [facility], DEPT 2 2 CHILD AND YOUTH PROGRAM ASSISTANT VISIT [facility] HIGH CO HOS SEVERITY& THREAT [facility], - 2 2 CHILD AND YOUTH PROGRAM ASSISTANT OUTPATIEN ANDRE[facility] T CO HOS HOME [facility], 2 2 DIST OTHER HEALTH DEPT [facility]PITAL [facility], - 2 2 CHILD AND YOUTH PROGRAM ASSISTANT OUTPATIEN ANDREY T CO HOS OFFICE 13799 [facility] OUTPATIEN 2 2 [place] FAMILY CAROL T VISIT MEDICINE 25 P MINUTES OFFICE 23432 LAUSE FED LAUSE FED OUTPATIEN 2 2 T NEW 20 MINUTES HOME [facility], 2 2 DIST OTHER HEALTH DEPT [facility], 2 2 DIST OTHER HEALTH DEPT [facility], - 2 2 CHILD AND YOUTH PROGRAM ASSISTANT INPATIENT [facility] CO HOS EMERGENCY 12810 [facility], 2 2 CHILD AND YOUTH PROGRAM ASSISTANT DEPARTMEN ANDREY T VISIT CO HOS HIGH/URGE NT SEVERITY HOSPITAL [facility], - 2 2 CHILD AND YOUTH PROGRAM ASSISTANT OUTPATIEN ANDRE[facility] T CO HOS EMERGENCY 50993 [facility] JAVIER 2 2 CO [facility] T VISIT MODERATE SEVERITY OFFICE 66394 [place] LUZMARIA [facility] 2 2 MEDICAL XOCHITL T NEW 60 SERV MINUTES [facility] UNIVERSIT - 2 2 Y [facility] UNIVERSIT - 2 2 Y [facility] T OFFICE 11158 [facility] 2 2 [place] FAMILY T VISIT MEDICINE 15 P [facility] UNIVERSIT [facility] 2 2 Y [facility] T OFFICE 23192 [facility] 2 2 NURSE HUSSEIN T NEW 45 PRACTITIO MINUTES [facility], - 1 1 CHILD AND YOUTH PROGRAM ASSISTANT INPATIENT ANDRE[facility] CO [facility] ANDREY - 1 1 CO [facility] UNIVERSIT - 1 1 Y INPATIENT HOSPITAL OFFICE 92229 [place] HERBERT ARGUETA [facility] 1 1 MEDICAL T VISIT SERV 40 [facility] ANDREY - 0 0 [facility] UNIVERSIT - 0 0 Y [facility] UNIVERSIT - 0 0 Y [facility] T OFFICE 91851 [facility] OUTPATIEN 0 0 [place] [facility] [facility] T VISIT MEDICINE 15 P MINUTES OFFICE 12741 [facility] OUTPATIEN 0 0 [place] T VISIT 15 MINUTES OFFICE 92126 [facility] OUTPATIEN 0 0 [place] T VISIT 15 MINUTES OFFICE 41456 [facility] OUTPATIEN 0 0 MARGARITA T VISIT 15 MINUTES [facility] UNIVERSIT - 0 0 Y [facility] T
--- OUTSIDE RECORDS SUMMARY | 2017-09-02 16:57 | External Medical Summary Rpt ---
Author Author JACQUELYN Ada, [employer] Organization [employer] Address Unknown Phone Unavailable [...]
--- OUTSIDE RECORDS SUMMARY | 2017-09-02 16:57 | External Medical Summary Rpt ---
Author Author JACQUELYN Ada, [employer] Organization [employer] Address Unknown Phone Unavailable [...]
--- OUTSIDE RECORDS SUMMARY | 2017-09-02 16:57 | External Medical Summary Rpt | CCD ---
Author Author , JACQUELYN VALLADARES Address Unknown Phone Immunization Name Date Rout CVX Reac Dose Comm Prov Is Faci e tion ent ider Refu lity Give sed n Infl 09-1 Intr 0.5 Hist PD20 No PD20 uenz 2-20 amus mL oric 256 256 a 17 cula al Quad r Info rmat W/Pr ion es - Sour ce Unsp ecif ied
[2017-09-02 17:15] LABS: HEMOGLOBIN 10.6 g/dL (12.2-16.2); LYMPH # 1.8 K/mm3 (0.7-4.5); LYMPH % 23.3 % (10-50.0)
[2017-09-02 19:23] VITALS: BP 112/69
[2017-09-02 20:04] LABS: URINE BILIRUBIN - DIPSTICK NEGATIVE (NEG); URINE BLOOD TRACE-INTACT (NEG)
[2017-09-02] MEDS ORDERED: PLAQUENIL200 MG PO (20:04)
[2017-09-02] MEDS ORDERED: INDERAL 20MG. T20 MG PO (20:10)
[2017-09-02] MEDS ORDERED: REMERON15 MG PO (20:17)
[2017-09-02] MEDS ORDERED: VITAMIN D31000 IU PO (20:27)
[2017-09-02 23:33] VITALS: BP 134/61
[2017-09-03] VITALS (7 sets, daily range): BP systolic 117–132; BP diastolic 56–78
[2017-09-03 02:48] LABS: AEROMONAS NOT DETECTED (NOT DETECTE); ASTROVIRUS NOT DETECTED (NOT DETECTE); CYCLOSPORA CAYETANENSIS NOT DETECTED (NOT DETECTE); E COLI O157 NOT DETECTED (NOT DETECTE); ENTEROAGGREGATIVE E COLI NOT DETECTED (NOT DETECTE); ENTEROPATHOGENIC E COLI NOT DETECTED (NOT DETECTE); ENTEROTOXIGENIC E COLI NOT DETECTED (NOT DETECTE); NOROVIRUS NOT DETECTED (NOT DETECTE); SAPOVIRUS NOT DETECTED (NOT DETECTE); SHIGA-LIKE TOXIN PROD. E COLI NOT DETECTED (NOT DETECTE); SHIGELLA/ENTEROINVASIVE E COLI NOT DETECTED (NOT DETECTE); VIBRIO CHOLERAE NOT DETECTED (NOT DETECTE)
--- NOTE | 2017-09-03 07:07 | PHARMACY CLINIC NOTE ---
Patient Demographics Patient Demographics Admission date: 09/02/17 Date: 09/03/17 Time: 0706 Allergies Coded Allergies: Zheng Inhibitors (Severe, A-[id number]/THROAT 10/02/15) Iodinated Contrast- Oral and IV Dye (IODINATED CONTRAST MEDIA - IV DYE) (Severe, S-DIFF. BREATHING 10/02/15) latex (Intermediate, I-HIVES 10/02/15) morphine (Intermediate, I-ITCHING 10/02/15) HEIGHT- FT: 5 IN: 1.00 K.307 VTE General Information Labs: Laboratory Tests 09/02 1700 Hematology Hgb (12.2 - 16.2 g/dL) 10.6 L Hct (37.0 - 47.0 %) 33.1 L Plt Count (142 - 424 K/mm3) 323 Disclaimer The following section includes nursing documentation that has been pulled in for pharmacy review. Patient's VTE score: 5 Patient's VTE Risk: LOW RISK Clinical trial participant? No VTE prophylaxis NQF [id number] VTE prophylaxis ordered? Yes Type of prophylaxis/treatment: SHEA at 0706
--- NOTE | 2017-09-03 07:07 | PHARMACY CLINIC NOTE ---
Patient Demographics Patient Demographics Admission date: 09/02/17 Date: 09/03/17 Time: 0706 Allergies Coded Allergies: Zheng Inhibitors (Severe, I-[id number]-ZWMC/THROAT 10/02/15) Iodinated Contrast- Oral and IV Dye (IODINATED CONTRAST MEDIA - IV DYE) (Severe, S-DIFF. BREATHING 10/02/15) latex (Intermediate, I-HIVES 10/02/15) morphine (Intermediate, I-ITCHING 10/02/15) HEIGHT- FT: 5 IN: 1.00 K.307 VTE General Information Labs: Laboratory Tests 09/02 1700 Hematology Hgb (12.2 - 16.2 g/dL) 10.6 L Hct (37.0 - 47.0 %) 33.1 L Plt Count (142 - 424 K/mm3) 323 Disclaimer The following section includes nursing documentation that has been pulled in for pharmacy review. Patient's VTE score: 5 Patient's VTE Risk: LOW RISK Clinical trial participant? No VTE prophylaxis NQF [id number] VTE prophylaxis ordered? Yes Type of prophylaxis/treatment: SHEA at 0706
[2017-09-03] MEDS ORDERED: VITAMIN D50000 I1 PO (07:13)
[2017-09-03] MEDS ORDERED: KAPIDEX60 MG PO (07:15)
--- NOTE | 2017-09-03 07:25 | RADIOLOGY REPORT PS360 ---
CHEST(2 VIEWS-NOT PORTABLE) HISTORY: weakness ORDERING PHYSICIAN: Vincent Graham MD PATIENT AGE: 67 years COMPARISON: 05/29/2017 FINDINGS: The cardiomediastinal silhouette and pulmonary vascularity are within normal limits. There are surgical clips in the right perihilar region with continued elevation of the right hemidiaphragm. Small hiatal hernia. No lobar consolidation or collapse. Degenerative change thoracic spine. IMPRESSION: No change with no acute finding..
--- NOTE | 2017-09-03 07:58 | ACUTE CARE PROGRESS NOTE (QUA) ---
Progress Notes Subjective Date 09/03/17 Time 0756 Note Patient feels much better after one night of IV fluids. Labs show uremia and prerenal azotemia. Also has significant evidence of urinary tract infection. Patient's color is better, heart rate is improved. Lungs are clear, no abdominal tenderness. Objective Findings Last VS-Temp:98.1 B/P:132/78 Pulse:66 Resp:20 SaO2:100 ROOM AIR Last weight lbs:179 oz:4 K.307 Method:Bed Scales Assessment/Plan Problem List 1. Diarrhea 2. Weakness 3. Acute kidney injury 4. Urinary tract infection Patient condition Improving, add antibiotics for urinary tract infection evidence. Continue low-dose IV fluids. Labs tomorrow. This inpt stay is expected to cross 2 MNs from start of care Yes at 0750
[2017-09-04] VITALS: BP 125/67
[2017-09-04 03:44] VITALS: BP 128/81
--- NOTE | 2017-09-04 07:34 | DISCHARGE SUMMARY STANDARD ---
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 She was found to be weak and orthostatic. Admitted to hospital for further diagnostic testing. She denies fevers, vomiting, chest pain or dyspnea issues. She does report 3 days of recent diarrhea and nonbloody mucousy stool. Hospital Course Hospital Course: Was admitted, started on cautious IV fluids, BUN and creatinine showed prerenal azotemia and significant dehydration. Patient responded nicely to fluids. Urinalysis showed evidence of UTI but culture did not grow anything except "mixed organisms." Ceftriaxone however seem to empirically improve dysuria complaints. She had one further diarrheal stool but this was negative for pathogens on our PCR panel. These diarrheal stools resolved with IV fluids. This morning she is improved. Eating 100 percent of her breakfast. Feels good, is able to transfer between chair and bed which is about her baseline. Heart rate regular, eating well, no edema. Alert, pleasant, oriented. Plan will be to discharge home today with cefdinir to finish up treatment for UTI, she will be instructed to push by mouth fluids. We will contact her home health agency and have PT/OT/nursing care for blood pressure evaluation and dehydration evaluation instituted. 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 Discharge diagnoses Problem List 1. Diarrhea 2. Weakness 3. Acute kidney injury 4. Urinary tract infection Medications Medications: Discharge meds are as noted. Follow up Follow up in office in: 7 DAYS with: Vincent Graham MD at 0711
[2017-09-04 07:35] VITALS: BP 105/79
[2017-09-04] MEDS ORDERED: OMNICEF 300 MG300 MG PO (07:36)
[2017-09-04 15:38] VITALS: BP 129/68
[2017-09-04 16:30] VITALS: BP 129/68
== END 2017-09-04 16:40 | disposition home or self-care (01) | DRG 690 ==
LOC: 2ND 14:21
PROVIDERS: Internal Medicine Adolescent Medicine
DX: N39.0 Urinary tract infection, site not specified (principal); M32.14 Glomerular disease in systemic lupus erythematosus; M13.80 Other specified arthritis, unspecified site; R06.00 Dyspnea, unspecified
CPT/HCPCS: G0378